=== PATIENT | male | born 1970 | race Caucasian/White ===

== ENCOUNTER 2020-08-23 17:20 | Outpatient (RCR) | payer OTHER, SELFPAY ==
[2020-08-05 12:33] VITALS: BMI 26.6
--- NOTE | 2020-08-24 07:29 | HP.PTEVAL_ITS ---
Patient's Visit Information LAURA STEPHENS is a 50 year old M referred to Physical Therapy by Dr. Eunice Ratliff DO with a diagnosis of LUMBAR RADICULOPATHY ,DDD LUMBAR. Date of Evaluation: 08/23/20 Physical Therapist: Emerson Miranda, PT, Cert MDT, OCS - Visit Plan Frequency: 1-2x /Week Duration: 4 Weeks Plan: PATIENT ANGEL HAS LEFT AVASCULAR NECROSIS LEFT HIP PLAN FOR MRI. PT INTERVETIONS DLS-ABD/BACK,POSTURAL EX'S,KAITLYN E'S,HIP STRENGTHENING - Subjective This 50 y/o male presents physical therapy with with lumbar radicular symptoms. Patient has h/o lumbar pain for many years which has been intermittant. Location of symmtrical L-S and occassionally radiates to lateral hip. Patient seen DR harper also avascular necrosis from reviewing x-rays. Recommended PT for lumbar evalutaion. Aggraveting factors lifting,bending repetative. Patienr symptoms dull ache. Symptoms worse with work demnads. Patient santana on side. Alleviating heat ,rest. When hip pain was worse had intermttant thigh pain.Bowel/bladder -. Coughing/sneezing-. Denies parathesia/tingling. Patient able to sleep at night. Patient does report h/o skiing accident injuring hip. Patient pain affects back affects job demnads and housework tasks,. Patient sy mptoms affects QOL. No tx in hip or back. VOCATION: [facility] - Pain Bilateral Back Pain Intensity (Out of 10): 2 Pain Intensity Range: 10 Left Hip Pain Intensity (Out of 10): 5 Pain Intensity Range: 10 Comment: lateral hip - Objective POSTURE: mild foward posture. GAIT: reciprocal pattern mild decrease standce time LLE. SYMMTRIES: align. PALAPTION: unremrkable. NEURO: denies parathesia/tingling,reflexes 2/3 intact. LUMBAR ROM: flexion min loss ,extension WFL,side glides min loss. FLEXABLITY: hams min tight,piriforms mod tight left. AROM: hip flexion 110 degrees groin,IR 20 pain groin /hip. MMT: quads/hams 4/5 hip R 4/5,left 4-/5 ,hip abd left 4-/5 right 4/5,IR/ER hip pain in groin region - Special Tests L/S Slump test left side: Negative L/S Slump test right side: Negative L/S Left Straight Leg Raise: Negative L/S Right Straight Leg Raise: Negative L/S Left Femoral Nerve Tension: Negative L/S Right Femoral Nerve Tension: Negative Lumbar Standing: Flexion - Mechanical Response: No effect Lumbar Standing: Flexion - Symptoms During Testing: Increases Lumbar Standing: Flexion - Symptoms After Testing: No worse Lumbar Standing: Extension - Mechanical Response: No effect Lumbar Standing: Extension - Symptoms During Testing: Increases Lumbar Standing: Extension - Symptoms After Testing: No worse L Hip Scour: Positive L Hip KINGA - Intraarticular Pathology: Positive - Goals Goal 1:: Patient to be I with HEP. Goal Time Frame: 2-4 Weeks Goal 2:: Patient decrease lumbvar pain and radicular symptoms by 60% or > to improve function Goal Time Frame: 2-4 Weeks Goal 3:: Pateint to improve lumbar ROM for function of vrecovery Goal Time Frame: 4-6 Weeks Goal 4:: Patient increase stength left hip 4/5 to improve function Goal Time Frame: 2-4 Weeks Goal 5:: Patient to improve back owestry score by 5 points or > to impirove QOL - Rehabilitation Potential Physical Therapy Diagnosis: This patiient has symmrical lumbar pain with dysfunction as well as left hip avasular necrosisshowed from x-rays but plane to get a MRI to clarfy the sinificance with pain in limbar with postion and motion lesting .Patient patient also have pain in left hip with motion ER/IR ,MMT LEFT hip. Rehabilitation Potential: Good - Anticipated Interventions Patient/Client Instruction: Educate patient on: Condition, Plan of Care For the Purpose of:: To decrease pain, To increase ROM, To improve muscle performance and motor function, To improve ability to perform ADL's, To increase tolerance to activity/condition/position, To improve ability of physical actions for home/community/work/leisure, To improve health of tissue, To decrease soft tissue restriction, To increase flexibility/ROM, To reduce risk of recurrence, To improve ability to perform tasks related to life management Therapeutic Exercise to Include: Strength training, Postural training, Flexibilty training, Active ROM, Dynamic Lumbar Stabilization, Kaitlyn Exercises For the Purpose of:: To decrease pain, To improve muscle performance and motor function, To improve ability to perform ADL's, To increase tolerance to activity/condition/position, To improve ability of physical actions for home/community/work/leisure, To improve health of tissue, To decrease soft tissue restriction, To increase flexibility/ROM, To reduce risk of recurrence, To improve ability to perform tasks related to life management Thank you for the opportunity to evaluate your patient. For Medicare and Medicare HMO plans, please review the plan of care and approve it. It will need to be FAXED BACK to us at [phone] for Medicare purposes. For Medicare only, by signing this I certify the plan of care. Please let me know if there are questions or concerns regarding this plan of care. Physician Signature: Date:
--- NOTE | 2020-09-22 08:27 | HP.PT.NRP ---
LAURA STEPHENS was seen in my office for initial evaluation on 08/23/20. The following Plan of Care was established for this patient: Initial Frequency: 1-2x /Week Initial Duration: 4 Weeks Patient/Client Instruction: Educate patient on: Condition, Plan of Care For the Purpose of:: To decrease pain, To increase ROM, To improve muscle performance and motor function, To improve ability to perform ADL's, To increase tolerance to activity/condition/position, To improve ability of physical actions for home/community/work/leisure, To improve health of tissue, To decrease soft tissue restriction, To increase flexibility/ROM, To reduce risk of recurrence, To improve ability to perform tasks related to life management Therapeutic Exercise to Include: Strength training, Postural training, Flexibilty training, Active ROM, Dynamic Lumbar Stabilization, Paola Exercises For the Purpose of:: To decrease pain, To improve muscle performance and motor function, To improve ability to perform ADL's, To increase tolerance to activity/condition/position, To improve ability of physical actions for home/community/work/leisure, To improve health of tissue, To decrease soft tissue restriction, To increase flexibility/ROM, To reduce risk of recurrence, To improve ability to perform tasks related to life management This patient was last seen in our office . Pertinent comments regarding their Physical therapy will appear below: Patient seen for PT initial evalution for HEP ,had MRI thus is d/c At this point I will be discontinuing this patient from physical therapy. I would be happy to see this patient again in the future if found appropriate by the physician. Thank you! Emerson Miranda, PT, Cert MDT, OCS
== END 2020-08-23 19:00 | disposition home or self-care (01) ==
LOC: PT 17:20
PROVIDERS: PCP Internal Medicine; Referring Provider Orthopaedic Surgery; Visit Provider Orthopaedic Surgery
DX: M51.16 Intervertebral disc disorders with radiculopathy, lumbar region (principal)
CPT/HCPCS: 97110; 97162

== ENCOUNTER → 2020-09-03 17:46 | Outpatient (CLI) | payer OTHER, SELFPAY ==
[2020-08-05 12:33] VITALS: BMI 26.6
--- NOTE | 2020-09-03 17:48 | MRI_ITS ---
STUDY: MRI LEFT HIP REASON FOR EXAM: Male, 50 years old. INTERMITTENT L HIP PAIN X 3 YRS TECHNIQUE: Standardized fat and water weighted pulse sequences were obtained in all 3 orthogonal planes. COMPARISON: X-ray 08/05/2020. FINDINGS: Serpiginous linear signal hypointensity in the left femoral head consistent with osteonecrosis. Necrotic fragment is hyperintense on T1 and mildly hyperintense on T2-weighted imaging. Mild edema in the lateral acetabulum likely represents early degenerative change. Reactive marrow edema in the greater trochanter consistent with tendinosis and tear. Marrow signal is otherwise normal. No hip joint effusion. Trace edema surrounding the distal gluteus minimus tendon consistent with low-grade strain. Partial tear involving the anterior fibers of the gluteus medius tendon. There is no trochanteric, iliopsoas or iliopectineal bursitis. Right hip joint is unremarkable. Normal visualized soft tissue structures of the pelvis. MRI/Lower Ext Joint Only (Routine) IMPRESSION: 1. Osteonecrosis of the left femoral head. 2. Partial gluteus medius tendon tear. 3. Gluteus minimus strain. Electronically Signed: Yen Baugh MD at 18:32 EST Tel , Service support ,
--- NOTE | 2020-09-03 18:07 | RAD_ITS ---
STUDY: X-RAY - ORBITS REASON FOR EXAM: Male, 50 years old. History of metal to eyes. TECHNIQUE: 2 view(s) of the orbits were obtained. COMPARISON: None. FINDINGS: Normal bilateral orbits without a metallic orbital foreign body. Normal visualized facial bones. Normal paranasal sinuses. The soft tissue structures are unremarkable. RAD/Orbits for Foreign Body IMPRESSION: No demonstrated metallic orbital foreign body. The patient is cleared for an MRI examination. Electronically Signed: Luarence Yee MD at 18:28 EST Tel , Service support ,
== END ==
LOC: MRI 17:48
PROVIDERS: PCP Internal Medicine; Referring Provider Orthopaedic Surgery; Visit Provider Orthopaedic Surgery
DX: M87.052 Idiopathic aseptic necrosis of left femur (principal)
CPT/HCPCS: 70030; 73721

== ENCOUNTER 2022-11-08 07:36 | Observation (INO) | payer OTHER, SELFPAY ==
[2022-11-08] VITALS (16 sets, daily range): BP systolic 120–148; BP diastolic 80–95; PULSE 70–92; RESP 15–20; TEMP 35.7–36.7; O2SAT 94–97; BMI 28.5; BMI 26.8
--- NOTE | 2022-11-08 07:38 | RAD_ITS ---
STUDY: X-RAY CHEST REASON FOR EXAM: Male, 52 years old. Chest pain TECHNIQUE: Single AP portable view of the chest. COMPARISON: None. FINDINGS: EKG electrodes are seen. Hyperinflation. The lungs are clear. There is no demonstrated pleural abnormality. Normal size heart. Normal mediastinum and brandy. Normal visualized pulmonary arteries. Normal visualized aortic arch and descending thoracic aorta. Normal visualized thoracic spine. 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 There is no demonstrated abnormality of the visualized soft tissue structures of the upper abdomen. RAD/Chest 1 View (Portable) IMPRESSION: Hyperinflation. The lungs are clear. 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 Electronically Signed: Ryan Chu MD at 8:22 EST ,
--- NOTE | 2022-11-08 07:44 | ED.VIS.CHEST ---
HPI History of Present Illness Chief Complaint: Chest Pain Informant: patient Onset/Context/Timing Onset: Today Activity at onset: gradual Quality: Positive for Heaviness and Pressure Location: Substernal Current Severity: Gone Maximum Severity: Moderate Associated Symptoms: Positive for Dyspnea and Lightheadedness Narrative Narrative: Patient presents via EMS secondary to chest pain and shortness of breath. He was out shoveling snow this morning he developed left-sided chest pain and shortness of breath. He felt as if he might pass out. He complains of some tingling in his left arm. 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 Between the aspirin and sitting to rest his pain has subsided. He currently denies any chest pain. He denies any personal history of heart disease. He states his father had coronary disease and of a pulmonary embolism. [facility] Medical History (Updated 11/08/22 @ 08:[address] Emelia Win MD) Second degree bansal Home Medications cyclobenzaprine 10 mg tablet 10 mg PO HS PRN muscle spasm #10 tabs 08/05/20 [Rx Last Taken Unknown] methylprednisolone 4 mg tablets in a dose pack (Medrol (Brain)) See Rx Instructions PO PER PKG DIR #21 tabs 08/05/20 [Rx Last Taken Unknown] Allergy/AdvReac Type Severity Reaction Status Date / Time No Known Allergies Allergy Verified 11/08/22 07:36 Family History Grandmother Breast cancer Father Prostate cancer Skin cancer Mother Hypertension High cholesterol Social History Smoking Status: Current every day smoker tobacco type: cigarettes alcohol intake: current alcohol intake frequency: 3 or more drinks per day Alcohol type: beer substance use type: does not use what type of physical activity do you participate in: none ROS ROS ED Constitutional Constitutional ED: Denies chills or fever(s) Eyes Eyes: Denies change in vision or discharge from eye(s) ENT ENT ED: Denies discharge from eye(s), rhinorrhea or sore throat Cardiovascular Cardiovascular: Reports chest pain; Denies palpitations Respiratory/Chest Respiratory/Chest: Reports dyspnea; Denies cough Gastrointestinal Gastrointestinal: Denies abdominal pain, diarrhea, nausea or vomiting Genitourinary Genitourinary ED: Denies dysuria Musculoskeletal Musculoskeletal: Denies back pain or extremity pain Integumentary Denies Abrasions or rash Neurologic Neurologic: Reports paresthesias; Denies headache(s) or weakness Psychiatric Psychiatric: Denies anxiety or depression Allergic/Immunologic Allergic/Immunologic ED: Denies lip swelling or urticaria EXAM Physical Exam Const Vital Signs: 11/08/22 07:37 11/08/22 07:50 Temperature 96.2 F L Temperature Source Temporal Pulse Rate 86 Respiratory Rate 15 Blood Pressure 148/94 H Blood Pressure Mean 112 Pulse Ox 96 Oxygen Delivery Method Room Air Room Air Positive well nourished and well developed General Appearance ED: well developed HEENT Reports normocephalic and head/scalp atraumatic Eyes PERRL and EOMs intact bilaterally Neck supple Chest Wall inspection of chest normal and palpation of chest normal Resp normal respiratory effort and clear to auscultation bilaterally Cardio regular rate and regular rhythm GI normal to inspection, nondistended, normoactive bowel sounds Palpation: soft Extremity normal to inspection Neuro oriented x3 and no sensory deficits noted Sensorium / Orientation: alert Motor Exam: strength 5/5 throughout Psych mental status grossly normal Skin no rashes or lesions noted Heart Score History: Highly Suspicious ECG: Nonspecific Repolarization Age: >45 - <65 years Risk Factors: 1 or 2 Risk Factors Troponin: </= Normal Limit Score: 5 MDM MDM MDM Narrative Medical decision making narrative: Patient had received aspirin prior to arrival. He was pain-free on arrival. EKG and chest x-ray obtained. Lab work ordered. Lab Data Attestation: I reviewed the patient's lab results. Labs: Laboratory Results - last 24 hr 11/08/22 11/08/22 07:40 07:40 WBC 10.5 RBC 4.99 Hgb 14.7 Hct 43.5 MCV 87.2 MCH 29.5 MCHC 33.8 RDW Std Deviation 45.6 H RDW Coeff of Tj 14.3 Plt Count 242 MPV 10.4 Immature Gran % (Auto) 0.300 Neut % (Auto) 43.8 L Lymph % (Auto) 41.7 H Mchenry % (Auto) 11.0 H Eos % (Auto) 2.4 Baso % (Auto) 0.8 Absolute Neuts (auto) 4.6 Absolute Lymphs (auto) 4.39 Nucleated RBC % 0 Sodium 138 Potassium 4.1 Chloride 106 Carbon Dioxide 24.0 Anion Gap 8 BUN 15 Creatinine 1.23 Estim Creat Clear Calc 78.86 Est GFR (MDRD) Af Amer 80 Est GFR (MDRD) Non-Af 66 BUN/Creatinine Ratio 12.2 Glucose 134 H Calcium 9.5 Troponin I High Sens 37 Radiography Chest X-Ray - ED: 1 View, Read by ED Physician, Normal, Heart, Lungs and Mediastinum EKG Initial EKG: Attestation: I personally reviewed and interpreted this EKG as follows: Interpretation: Sinus Rhythm (Sinus 83 with 1/[address] depression in V4 and V5.) Treatment and Re-Evaluation Narrative: Repeat evaluation patient resting comfortably. Patient's story is obviously concerning. Initial troponin is negative. Given his constitutional symptoms I do feel he warrants observation for cycling of enzymes and stress test. I will speak with hospitalist. Discharge Plan Triage Chief Complaint: Chest Pain ED Provider: Emelia Win Dx/Rx/DC Orders Clinical Impression: Chest pain Prescriptions: No Action methylprednisolone [Medrol (Brain)] 4 mg tablets,dose pack See Rx Instructions PO PER PKG DIR Qty: 21 0RF Rx Instructions: PO PER PKG DIR cyclobenzaprine 10 mg tablet 10 mg PO HS PRN (Reason: muscle spasm) Qty: 10 0RF Primary Care Provider: Lee Cuello Referrals: Lee Cuello MD [Primary Care Provider] - Disposition Disposition: Acute Care Hospital [facility]
[2022-11-08 07:52] LABS: Absolute Lymphocyte Count 4.39 X10^3/uL (0.83-4.51); Absolute Neutrophil Count 4.6 X10^3/uL (2.0-7.7); Basophil# 0.08 X10^3/uL; Basophil% 0.8 % (0-1); Eosinophil# 0.25 X10^3/uL; Eosinophils% 2.4 % (0-5); Hematocrit 43.5 % (40-54); Hemoglobin 14.7 g/dL (13.0-16.5); Lymphocyte # 4.39 X10^3/ul (0.83-4.51); Lymphocyte % 41.7 % (19-41); Mean Corp Hgb Conc 33.8 g/dL (32-36); Mean Corpuscular Hgb 29.5 pg (27.0-32.0); Mean Corpuscular Volume 87.2 fL (80-94); Mean Platelet Vol. 10.4 fl (6.2-12.0); Monocyte# 1.16 X10^3/uL; NRBC Flagged by Analyzer 0 % (0-5); Neutrophil # 4.61 X10^3/uL (2.7-7.7); Neutrophil % 43.8 % (47-70); Platelet Count 242 K/mm3 (150-450); RBC Distribution Width CV 14.3 % (11.6-14.6); RBC Distribution Width SD 45.6 fl (35.1-43.9); Red Blood Count 4.99 M/mm3 (4.6-6.2); White Blood Count 10.5 K/mm3 (4.4-11.0)
[2022-11-08 08:07] LABS: Anion Gap 8 (5-15); BUN 15 mg/dL (7-18); BUN/Creat Ratio 12.2 RATIO (10-20); Calcium,Total 9.5 mg/dL (8.5-10.1); Chloride 106 mmol/L (98-107); Creatinine, Serum 1.23 mg/dL (0.70-1.30); EST Glomerular Filtration Rate 66 mL/min (>60); Est Glom Filt Rate - Afr Amer 80 mL/min (>60); Estimated Creatinine Clearance 78.86 ml/min; Glucose 134 mg/dL (74-106); Potassium 4.1 mmol/L (3.5-5.1); Sodium Level 138 mmol/L (136-145); Troponin-I HS (w/2H Reflex) 37 pg/mL (3.0-78.0)
--- NOTE | 2022-11-08 08:32 | HP.PCM.HOS_ITS ---
HPI - General General Date of Admission: 11/08/22 Date of Service: 11/08/22 Chief Complaint: Chest pain HPI Narrative LAURA STEPHENS, is a 52 M who presented to the emergency department [facility] after he suffered chest pain while shoveling snow at about 630 this morning. 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 Patient has no personal coronary history but does have a history of tobacco and reported hypertension however he takes no medications. He has a family history of coronary disease in both his father and grandfather. They both apparently di ed in their 70s. He reports when he had the event he stopped shoveling snow and sat down and started to feel better. At the time of my evaluation he did not have any chest pain. Signs on presentation emergency department showed a temperature of 96.2, heart rate 86, blood pressure 148/94, respiratory rate 15 and oxygen saturation was 96% on room air. His CBC is unremarkable. D-dimer was less than 0.27. Chemistry panel was unremarkable other than a blood glucose of 134. His initial troponin was 37. Chest x-ray had no acute findings. His EKG showed normal sinus rhythm with normal intervals and about a half a millimeter of ST depression in the lateral leads. [facility] Medical History Alcohol abuse Hypertension Second degree bansal Tobacco abuse Home Medications NK 11/08/22 [History Last Taken Unknown] Allergy/AdvReac Type Severity Reaction Status Date / Time No Known Allergies Allergy Verified 11/08/22 07:36 Family History (Updated 11/08/22 @ 12:[address] Marianne Estevez DO) Grandmother Breast cancer Father Prostate cancer Skin cancer CAD (coronary artery disease) Mother Hypertension High cholesterol Grandfather CAD (coronary artery disease) Surgical History no surgical history no surgical history Social History Smoking Status: Current every day smoker tobacco type: cigarettes alcohol intake: current alcohol intake frequency: 3 or more drinks per day Alcohol type: beer substance use type: does not use what type of physical activity do you participate in: none ROS Constitutional Constitutional: Denies anorexia, change in weight, chills, fatigue, fever(s), malaise, night sweats, weakness or other Eyes Eyes: Denies blurry vision, change in eye color, change in vision, discharge from eye(s), double vision, erythema, eye pain, loss of vision or other ENT HEENT: Denies abnormal hearing, dysphagia, ear pain, epistaxis, headache(s), hearing loss, nasal congestion, nasal discharge, post nasal drip, sinus pressure, sore throat or other Cardiovascular Cardiovascular: Reports chest pain, dyspnea on exertion and lightheadedness; Denies claudication, edema, orthopnea, palpitations, paroxysmal nocturnal dyspnea, rapid heart rate, syncope or other Respiratory/Chest Respiratory/Chest: Denies cough, dyspnea, excessive phlegm production, hemoptysis, productive cough, shortness of breath at rest, shortness of breath with exertion, wheezing or other Gastrointestinal Gastrointestinal: Denies abdominal pain, coffee ground emesis, constipation, diarrhea, dyspepsia, hematemesis, hematochezia, loose stools, melena, nausea, vomiting or other Genitourinary Genitourinary: Denies burning urination, difficulty urinating, dysuria, hematuria, nocturia, urinary frequency, urinary hesitancy, urinary incontinence, urinary urgency or other Musculoskeletal Musculoskeletal: Reports other Details: Left arm pain in association with chest pain ; Denies arthralgias, back pain, joint pain, joint stiffness, joint swelling, myalgias or neck pain Psychiatric Psychiatric: Denies anxiety, depression, homicidal ideation, suicidal ideation or other Endocrine Endocrinology: Denies change in body appearance, cold intolerance, excessive sweating, heat intolerance, polydipsia, polyuria or other Hematologic/Lymphatic Hematologic/Lymphatic: Denies anemia, easy bleeding, easy bruising, lymphadenopathy or other Allergic/Immunologic Allergic/Immunologic: Denies rhinitis, hives, eczemia, asthma or other Vital Signs Vital Signs Vital Signs: 11/08/22 07:37 11/08/22 07:50 Temperature 96.2 F L Temperature Source Temporal Pulse Rate 86 Respiratory Rate 15 Blood Pressure 148/94 H Blood Pressure Mean 112 Pulse Ox 96 Oxygen Delivery Method Room Air Room Air Weight Weight: 95.3 kg Body Mass Index (BMI) 28.5 Physical Exam Const alert, oriented x3, no apparent distress, average body habitus and well nourished Constitutional Narrative: Slightly overweight, white male, sitting up in bed, appears comfortable, nontoxic General Appearance: cooperative HEENT normocephalic, head/scalp atraumatic and moist oral mucous membranes HEENT Narrative: Mild hearing loss, dentition is good, no thrush, Mallampati 2 Eyes PERRL, EOMs intact bilaterally and conjunctivae normal Eyes Narrative: No scleral icterus Neck no lymphadenopathy, supple, no JVD and no carotid bruits Neck Narrative: Trachea midline, no thyroid enlargement Resp normal respiratory effort, no retractions, no use of accessory muscles and clear to auscultation bilaterally Auscultation: Negative for crackles, rhonchi or wheezes Cardio regular rate, regular rhythm, S1 normal heart sound, S2 normal heart sound, no murmurs, no rub, no gallops and no clicks GI normal to inspection, nondistended, normoactive bowel sounds, soft to palpation and non-tender Extremity no clubbing, cyanosis or edema Extremity Narrative: 2+ pedal pulses Skin no rashes or lesions noted, no wounds, skin turgor normal, no jaundice, no petechiae and no mottling Neuro oriented x3, CN's II-XII intact bilaterally, moves all extremities and no focal motor deficits Speech: speech normal Motor Exam: strength 5/5 throughout Psych affect normal Psych Narrative: Pleasant, appropriately interactive Results Lab / Micro Data Result Diagrams: 11/08/22 07:40 11/08/22 07:40 Labs: Laboratory Results - last 24 hr 11/08/22 07:40: WBC 10.5, RBC 4.99, Hgb 14.7, Hct 43.5, MCV 87.2, MCH 29.5, MCHC 33.8, RDW Std Deviation 45.6 H, RDW Coeff of Tj 14.3, Plt Count 242, MPV 10.4, Immature Gran % (Auto) 0.300, Neut % (Auto) 43.8 L, Lymph % (Auto) 41.7 H, Trego % (Auto) 11.0 H, Eos % (Auto) 2.4, Baso % (Auto) 0.8, Absolute Neuts (auto) 4.6, Absolute Lymphs (auto) 4.39, Nucleated RBC % 0 11/08/22 07:40: Sodium 138, Potassium 4.1, Chloride 106, Carbon Dioxide 24.0, Anion Gap 8, BUN 15, Creatinine 1.23, Estim Creat Clear Calc 78.86, Est GFR (MDRD) Af Amer 80, Est GFR (MDRD) Non-Af 66, BUN/Creatinine Ratio 12.2, Glucose 134 H, Calcium 9.5, Troponin I High Sens 37 Radiology Impression Chest X-Ray 11/08/22 07:38 IMPRESSION: Hyperinflation. The lungs are clear. 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 Electronically Signed: Ryan Chu MD at 8:22 EST , Assessment & Plan Assessment/Plan (1) Chest pain: (2) Hyperglycemia: PLAN: Plan Chest pain -Story is highly suspicious for coronary pathology -Case discussed with cardiology as I do feel he would benefit from cath rather than any noninvasive testing and they agree -Patient has been n.p.o. except for coffee this morning will remain so -Cycle cardiac enzymes initial was 37 -Check hemoglobin A1c -Check lipid profile -D-dimer was unremarkable -EKG with subtle abnormalities -Start high intensity statin -start metoprolol 25 mg p.o. twice daily -Start aspirin 81 mg daily -May be able to initiate COLBY inhibitor depending on blood pressure -Cardiology consultation Hyperglycemia without history of diabetes -Blood sugar this morning was 134 -Check hemoglobin A1c Elevated blood pressure without diagnosis of hypertension -Continue to monitor -Start metoprolol 25 mg p.o. twice daily Alcohol abuse -Patient admits to drinking 6 to 8 12 ounce beers at night -Has never gone through withdrawal -Has stopped drinking for a period of time without any withdrawal symptoms -Monitor clinically Tobacco abuse -Recommend cessation -Nicotine patch if desired DVT prophylaxis -Subcu Lovenox CODE STATUS -Full code Charges/Coding Visit Charges Inpatient E&M: 31676 Init Hosp L2
--- NOTE | 2022-11-08 08:48 | ED.RN ---
THIS RN CALLED RADHIKA [facility] [employer]. 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
[2022-11-08 09:44] LABS: Reflex Troponin-HS? (from REC) Y
[2022-11-08 09:55] LABS: Hemoglobin A1c 5.9 % (3.8-5.6)
--- NOTE | 2022-11-08 10:56 | CASEMGMT ---
Tertiary facilities in-network with patient's insurance: [facility], [facility], , [facility], [facility], [facility], [facility], [facility].
[2022-11-08] MEDS: 0.9% Normal Saline 1,000 ML 15 ML IV (11:00)
[2022-11-08] MEDS: Metoprolol Tartrate 25 MG Tablet PO ×2 (11:06→20:50)
--- NOTE | 2022-11-08 11:27 | ECHOD_ITS ---
Reason For Study: CHEST PAIN Procedure This was a 2D Doppler, Color Flow transthoracic echocardiogram. The exam was of adequate technical quality. Exam performed portable in patient room. Left Ventricle Normal LV size. Left ventricular systolic function is normal. The estimated ejection fraction is 55 %. No evidence for diastolic dysfunction. No regional wall motion abnormalities noted. Right Ventricle Normal RV size. Normal systolic function. Atria Normal left atrium. Normal right atrium. No doppler evidence for ASD. Mitral Valve There is no mitral annular calcification. Normal mitral valve. Trivial mitral valve insufficiency. Tricuspid Valve Normal tricuspid valve. Trivial tricuspid valve insufficiency. Right ventricular systolic pressure estimated to be 25 mmHg. Aortic Valve Trisinus/trileaflet aortic valve. Normal aortic valve. Trivial aortic valve insufficiency. Pulmonic Valve The pulmonic valve is not well visualized. Great Vessels Normal sized aortic root. Pericardium/Pleural No pericardial effusion. MMode/2D Measurements & Calculations LVIDd: 4.7 cm IVSd: 0.89 cm Ao root diam: 3.1 cm LVIDs: 3.2 cm LVPWd: 0.89 cm RVDd: 3.6 cm FS: 31.2 % LAV(MOD-bp): 46.2 ml LVAd ap4: 33.6 cm2 SV(MOD-sp4): 61.1 ml LAV(MOD-bp) Indexed: 21.8 ml/m2 LVLd ap4: 8.5 cm LAV(MOD-sp2): 47.6 ml EDV(MOD-sp4): 108.9 ml LAV(MOD-sp4): 43.5 ml EDV(sp4-el): 113.2 ml LVAs ap4: 20.3 cm2 LVLs ap4: 7.2 cm ESV(MOD-sp4): 47.8 ml ESV(sp4-el): 48.3 ml EF(MOD-sp4): 56.1 % EF(sp4-el): 57.4 % SV(sp4-el): 64.9 ml LA A4 area: 16.7 cm2 LA dimension(2D): 3.0 cm RA A4 area: 15.3 cm2 Time Measurements MV dec time: 0.22 sec Doppler Measurements & Calculations MV E max navid: 78.5 cm/sec Lat Peak E' Navid: 10.1 cm/sec Med Peak E' Navid: 10.0 cm/sec MV A max navid: 79.9 cm/sec E/E' lat: 7.7 E/E' med: 7.8 MV E/A: 0.98 Ao V2 max: 116.0 cm/sec LV V1 max: 101.6 cm/sec PA V2 max: 68.2 cm/sec Ao max P.4 mmHg LV V1 max P.1 mmHg TR max navid: 233.0 cm/sec TR max P.7 mmHg ECHO/Echo Complete Interpretation Summary Left ventricular systolic function is normal. The estimated ejection fraction is 55 %. Trivial mitral valve insufficiency. Trivial tricuspid valve insufficiency. Trivial aortic valve insufficiency. Right ventricular systolic pressure estimated to be 25 mmHg. No evidence for diastolic dysfunction. Ordering Physician: Timmy Infante Referring Physician: DENYS PHAM Performed By: Fouzia Casillas RDCS
--- NOTE | 2022-11-08 11:28 | PCM.CONS.C ---
Assessment & Plan Assessment/Plan (1) Angina pectoris: PLAN: The patient presents with symptoms concerning for exertional angina pectoris. His symptoms occurred outside, in the cold, with exertion.? They then occurred again when he was walking outside in the cold with no additional physical exertion. His initial noninvasive valuation is unremarkable based upon cardiac enzyme.? However, his second troponin I level is positive.? His ECG is as noted. At the present time based upon his clinical scenario the concern is for underlying unstable angina pectoris requiring further cardiovascular evaluation with consideration for direct evaluation of coronary anatomy with diagnostic cardiac catheterization.? The procedure and risk were discussed with the patient with his spouse present.? He was agreeable to this approach. In the interim he will continue to be monitored. He will continue medical therapy.? This will include agents such as aspirin 81 mg p.o. daily, nitroglycerin sublingual as needed, as well as consideration for other agents such as beta-blockers, afterload reducing agents, lipid-lowering agents, and antiplatelet/anticoagulants. (2) Non-ST elevation (NSTEMI) myocardial infarction: PLAN: The patient's second troponin I level returned positive. This would be compatible with a non-ST segment elevation DE. Based upon the patient's presentation this would be concerning for an acute coronary syndrome. At the present time the patient will continue to be monitored. He will continue medical therapy. He has been placed on aspirin therapy. He will receive additional agents as noted above as deemed appropriate. He has been recommended for further evaluation with diagnostic cardiac catheterization. Again the procedure and risk were discussed with him. He was agreeable to this approach. (3) HTN (hypertension): PLAN: The patient has been noted to be hypertensive. It is unclear as to whether or not this is secondary to his symptoms versus a contributing factor to his symptoms. Based upon review of medical records it appears he has been documented to be hypertensive in the past as well. At the present time he will need to have his blood pressure monitored. He should be considered for antihypertensive therapy which could include agents such as COLBY inhibitor's or ARB's, etc. (4) Hyperglycemia: PLAN: The patient's medical record states he has a history of hyperglycemia. If the patient does have hyperglycemia this could be a contributing factor to a cardiovascular risk profile. His glucose levels will need to be evaluated and treated appropriately. Addt'l Comments The above was discussed with the patient, his spouse, and Dr. Estevez of the [facility] staff. Comment: Time spent in the patient's overall evaluation, examination, review of medical records, review of radiologic studies, documentation, and discussion with family and the [facility] medical staff: 60 minutes. HPI Consult Data Date of Consult: 11/08/22 HPI Narrative HPI Narrative: LAURA STEPHENS, is a 52 year old white male who presents for cardiovascular consultation based upon concerns of symptoms concerning for exertional angina pectoris, subsequent abnormal troponin I level concerning for an acute coronary syndrome/non-ST segment elevation DE, and hypertension superimposed upon a report of hyperglycemia. The patient states to the best of his knowledge she has no known cardiovascular disease process. He notes today while outside in the cold shoveling snow he developed chest discomfort that radiated to his left shoulder and down his left upper extremity. He did feel somewhat short of breath and transiently nauseated. He is unsure whether he was diaphoretic as he was shoveling snow and already perspiring. He did not complain of palpitations. There was no report of near syncope or syncope. He states he stopped, rested, and went to the employment nurse. As he rested his symptoms improved. The EMS was called. He states he walked outside to the EMS. When he was outside in the cold he states that his symptoms started to recur with some element of chest discomfort. By the time he arrived in the emergency department he felt better. He states looking back that he believes he may have had similar type symptoms in the past under stressful situations but he is somewhat unclear of the details. There is been no obvious orthopnea, PND, or peripheral pitting edema. In the emergency department he was evaluated. His initial troponin I level was negative. His subsequent troponin I level is positive. His ECG demonstrated sinus rhythm with subtle nonspecific ST segment abnormality. The chest x-ray suggested, upon review, no acute cardiopulmonary disease process. He was subsequently placed in the PCU for further evaluation and care. He has been resting comfortably. He is remained in sinus rhythm. [facility] Medical History (Updated 11/08/22 @ 11:[address] Timmy Infante MD) Alcohol abuse Hypertension Second degree bansal Tobacco abuse Home Medications NK 11/08/22 [History Last Taken Unknown] Allergy/AdvReac Type Severity Reaction Status Date / Time No Known Allergies Allergy Verified 11/08/22 07:36 Family History Grandmother Breast cancer Father Prostate cancer Skin cancer Mother Hypertension High cholesterol Social History Smoking Status: Current every day smoker tobacco type: cigarettes alcohol intake: current alcohol intake frequency: 3 or more drinks per day Alcohol type: beer substance use type: does not use what type of physical activity do you participate in: none ROS Constitutional Constitutional: Reports as per HPI Eyes Eyes: Reports as per HPI ENT HEENT: Reports as per HPI Cardiovascular Cardiovascular: Reports chest pain with activity, diaphoresis, dyspnea on exertion and nausea Respiratory/Chest Respiratory/Chest: Reports dyspnea on exertion Gastrointestinal Gastrointestinal: Reports as per HPI Genitourinary Genitourinary: Reports as per HPI Musculoskeletal Musculoskeletal: Reports as per HPI Integumentary Integumentary: Reports as per HPI Neurologic Neurologic: Reports as per HPI Physical Exam Const alert, oriented x3, no apparent distress and healthy appearing Orientation / Consciousness: awake HEENT normocephalic, head/scalp atraumatic and hearing grossly normal bilaterally Eyes PERRL, EOMs intact bilaterally and conjunctivae normal Neck full ROM, supple and no JVD Carotids: normal carotid upstroke Resp normal respiratory effort and clear to auscultation bilaterally Cardio regular rate, regular rhythm, S1 normal heart sound and S2 normal heart sound GI normal to inspection, nondistended, normoactive bowel sounds Extremity normal to inspection and no pedal edema Skin no rashes or lesions noted Psych mental status grossly normal Risk Stratification Risk Stratification Applicable: Yes Age >/= 65: No >/= 3 CAD Risk Factors (HTN, HLD, DM, family hx of CAD, or current smoker): No Aspirin Use in the Past 7 Days: No Severe Angina (>/= episodes in 24 hours): Yes EKG ST Changes >/= 0.5mm: No Positive Cardiac Marker: Yes OLIS Risk Stratification Score: 2 LOIS % Risk: 8% Risk Procedure Criteria Type of Procedure Procedure Type: Elective Elective Risks - COVID COVID Risk Discussion: The surgeon/proceduralist and patient have discussed in detail the risk of exposure to and/or potential harm posed by the COVID-19 virus with having a surgery/procedure at this time versus the risk of delaying the surgery/procedure. It is not possible to know either the risk of delaying the surgery or procedure or chance of getting an infection with perfect accuracy, but a joint decision was made between the patient and the surgeon/proceduralist to proceed at this time with the scheduled surgery/procedure as indicated on the consent form. Objective Data Vital Signs: Vital Signs Temp Pulse Resp BP Pulse Ox O2 Del Method 96.2 F L 88 16 135/95 H 95 Room Air 11/08/22 10:15 11/08/22 11:06 11/08/22 10:15 11/08/22 10:15 11/08/22 10:15 11/08/22 10:15 Oxygen Delivery Method Room Air Weight: 197 lb 8.547 oz Body Mass Index (BMI) 26.8 Lab / Micro Data Result Diagrams: 11/08/22 07:40 11/08/22 07:40 Labs: Laboratory Results - last 24 hr 11/08/22 07:40: WBC 10.5, RBC 4.99, Hgb 14.7, Hct 43.5, MCV 87.2, MCH 29.5, MCHC 33.8, RDW Std Deviation 45.6 H, RDW Coeff of Tj 14.3, Plt Count 242, MPV 10.4, Immature Gran % (Auto) 0.300, Neut % (Auto) 43.8 L, Lymph % (Auto) 41.7 H, [place] % (Auto) 11.0 H, Eos % (Auto) 2.4, Baso % (Auto) 0.8, Absolute Neuts (auto) 4.6, Absolute Lymphs (auto) 4.39, Nucleated RBC % 0 11/08/22 07:40: Sodium 138, Potassium 4.1, Chloride 106, Carbon Dioxide 24.0, Anion Gap 8, BUN 15, Creatinine 1.23, Estim Creat Clear Calc 78.86, Est GFR (MDRD) Af Amer 80, Est GFR (MDRD) Non-Af 66, BUN/Creatinine Ratio 12.2, Glucose 134 H, Calcium 9.5, Troponin I High Sens 37 11/08/22 07:40: D-Dimer Quant (PE/DVT) Cancelled 11/08/22 07:40: Hemoglobin A1c 5.9 H Cardiology Labs/Tests 11/08/22 07:40: WBC 10.5, RBC 4.99, Hgb 14.7, Hct 43.5, MCV 87.2, MCH 29.5, MCHC 33.8, Plt Count 242, MPV 10.4, Immature Gran % (Auto) 0.300, Neut % (Auto) 43.8 L, Lymph % (Auto) 41.7 H, [place] % (Auto) 11.0 H, Eos % (Auto) 2.4, Baso % (Auto) 0.8, Absolute Neuts (auto) 4.6, Nucleated RBC % 0 11/08/22 07:40: Sodium 138, Potassium 4.1, Chloride 106, Carbon Dioxide 24.0, Anion Gap 8, BUN 15, Creatinine 1.23, Est GFR (MDRD) Af Amer 80, Est GFR (MDRD) Non-Af 66, BUN/Creatinine Ratio 12.2, Glucose 134 H, Calcium 9.5 11/08/22 07:40: D-Dimer Quant (PE/DVT) Cancelled 11/08/22 07:40: Hemoglobin A1c 5.9 H Rhythm: Sinus rhythm EKG: Sinus rhythm; subtle nonspecific ST segment abnormality Radiography Diagnostic Testing: Radiology Impression Chest X-Ray 11/08/22 07:38 IMPRESSION: Hyperinflation. The lungs are clear. 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 Electronically Signed: Ryan hCu MD at 8:22 EST ,
[2022-11-08 11:30] LABS: D-Dimer Quantitative (DVT/PE) < 0.27 FEU/ug/m (0.27-0.49)
[2022-11-08 11:38] LABS: Troponin-I HS 104 pg/mL (3.0-78.0)
[2022-11-08] MEDS: Lactated Ringers 1,000 ML 70 ML IV (12:51)
[2022-11-08] MEDS: 0.9% Normal Saline 1,000 ML 75 ML IV (12:59)
--- NOTE | 2022-11-08 15:51 | NURSING ---
Gave report to Ni BEAULIEU at [facility]. Transfer center to be called for official bed assignment information.
[2022-11-08] MEDS: HEPARIN/D5w 25,000 UNITS 25,000 UNITS/250 ML IV.SOLN. 12 UNITS CONT INF (16:12)
[2022-11-08 16:34] LABS: International Normalized Ratio 1.1; Prothrombin Time (Protime)PT. 13.6 SECONDS (11.7-14.9)
--- NOTE | 2022-11-08 17:30 | DS.PCM_ITS ---
Providers Date of Admission: 11/08/22 Date of Discharge: 11/08/22 Primary Care Physician: Dr. Denys Pham MD Consultations 11/08/22 10:06 Consult: Cardiology Routine Consulting Provider: Timmy Infante Reason for Consult: Chest Pain EMERGENT Consult: No MD Notified: Yes Date Notified: 11/08/22 Time Notified: 08:57 Method of Notification: Verbal Reason For Visit: CHEST PAIN Diagnosis Discharge Diagnosis (1) Chest pain: Status: Acute Code(s): R07.9 - Chest pain, unspecified (2) Hyperglycemia: Status: Acute Code(s): R73.9 - Hyperglycemia, unspecified Plan Chest pain -Story is highly suspicious for coronary pathology -Case discussed with cardiology as I do feel he would benefit from cath rather than any noninvasive testing and they agree -Patient has been n.p.o. except for coffee this morning will remain so -Cycle cardiac enzymes initial was 37 -Check hemoglobin A1c -Check lipid profile -D-dimer was unremarkable -EKG with subtle abnormalities -Start high intensity statin -start metoprolol 25 mg p.o. twice daily -Start aspirin 81 mg daily -May be able to initiate COLBY inhibitor depending on blood pressure -Cardiology consultation Hyperglycemia without history of diabetes -Blood sugar this morning was 134 -Check hemoglobin A1c Elevated blood pressure without diagnosis of hypertension -Continue to monitor -Start metoprolol 25 mg p.o. twice daily Alcohol abuse -Patient admits to drinking 6 to 8 12 ounce beers at night -Has never gone through withdrawal -Has stopped drinking for a period of time without any withdrawal symptoms -Monitor clinically Tobacco abuse -Recommend cessation -Nicotine patch if desired DVT prophylaxis -Subcu Lovenox CODE STATUS -Full code Medications at Discharge Home Medications NK 11/08/22 Hospital Course Procedures 2-D Echocardiogram, Cardiac catheterization and EKG Summary of Care Provided Minutes Spent on Discharge: 25 Hospital Course: Mr. Bauman is a 52-year-old white male who presented to the emergency department at [facility] after suffering chest pain while shoveling snow at approximately 630 this morning. 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 He has no personal history of coronary disease but does have a history of tobacco abuse and reported hypertension however he takes no medications. He has a family history of coronary disease in both his father and grandfather and they evidently in their 70s. He reported that when he had the event he stopped shoveling snow and sat down and started to feel somewhat better however his chest pain did not completely resolve until he got to the emergency department. At the time of my evaluation his chest pain had resolved. Vital signs on presentation emergency department demonstrated temperature of 96.2, heart rate 86, blood pressure 148/8094, respiratory rate of 15, oxygen saturation was 96% on room air. His CBC was unremarkable. D-dimer was less than 0.27. Chemistry panel was unremarkable other than a blood glucose of 134. His initial troponin was 37. Chest x-ray had no acute findings and his EKG showed normal sinus rhythm with normal intervals and about a half a millimeter of ST depression in the lateral leads. Given his concerning story I contacted the network support manager and we both felt that immediate catheterization was necessary. Patient was admitted to floor and his cardiac enzymes were cycled. Again his initial troponin was 37 however his repeat troponin was 104. He was started on aspirin, high intensity of statin, and beta-braydon. We did obtain a hemoglobin A1c and was found to be 5.9. The patient does not have a history of any insulin resistance or diabetes. He was taken to the [facility]. In the [facility] he was found to have severe left main disease and would require transfer. An echocardiogram was obtained while waiting for transfer and his EF was found to be 55% with trivial mitral valve insufficiency, trivial tricuspid valve insufficiency, trivial aortic valve insufficiency and a right ventricular systolic pressure of [address] Infante did discuss the case with CT surgery at [facility] and he was transferred to [facility] to Dr. Wu service on 11/08/2019 3 in the evening. Discharge diagnoses: NSTEMI Severe left main disease Insulin resistance Elevated blood pressure without history of hypertension Tobacco abuse Alcohol abuse Weight / BMI Weight Weight: 89.6 kg Body Mass Index (BMI) 26.8 ABG / Lab / Microbiology Data Result Diagrams: 11/08/22 07:40 11/08/22 07:40 Laboratory: Laboratory Results - last 24 hr 11/08/22 07:40: WBC 10.5, RBC 4.99, Hgb 14.7, Hct 43.5, MCV 87.2, MCH 29.5, MCHC 33.8, RDW Std Deviation 45.6 H, RDW Coeff of Tj 14.3, Plt Count 242, MPV 10.4, Immature Gran % (Auto) 0.300, Neut % (Auto) 43.8 L, Lymph % (Auto) 41.7 H, Stewart % (Auto) 11.0 H, Eos % (Auto) 2.4, Baso % (Auto) 0.8, Absolute Neuts (auto) 4.6, Absolute Lymphs (auto) 4.39, Nucleated RBC % 0 11/08/22 07:40: Sodium 138, Potassium 4.1, Chloride 106, Carbon Dioxide 24.0, Anion Gap 8, BUN 15, Creatinine 1.23, Estim Creat Clear Calc 78.86, Est GFR (MDRD) Af Amer 80, Est GFR (MDRD) Non-Af 66, BUN/Creatinine Ratio 12.2, Glucose 134 H, Calcium 9.5, Troponin I High Sens 37 11/08/22 07:40: D-Dimer Quant (PE/DVT) Cancelled 11/08/22 07:40: Hemoglobin A1c 5.9 H 11/08/22 09:19: D-Dimer Quant (PE/DVT) < 0.27 L 11/08/22 10:45: Troponin I High Sens 104 H 11/08/22 16:00: PT 13.6, INR 1.1, APTT 29.0 Radiography Diagnostic Testing: Radiology Impression Chest X-Ray 11/08/22 07:38 IMPRESSION: Hyperinflation. The lungs are clear. 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 Electronically Signed: Ryan Chu MD at 8:22 EST , Echocardiogram 11/08/22 11:27 Interpretation Summary Left ventricular systolic function is normal. The estimated ejection fraction is 55 %. Trivial mitral valve insufficiency. Trivial tricuspid valve insufficiency. Trivial aortic valve insufficiency. Right ventricular systolic pressure estimated to be 25 mmHg. No evidence for diastolic dysfunction. Ordering Physician: Timmy Infante Referring Physician: DENYS PHAM Performed By: Fouzia Casillas RDCS Meaningful Use Info Meaningful Use Diagnoses (Choose all that apply): None applicable Discharge Plan Admission Admit Date/Time: 11/08/22 08:27 Primary Reason for Your Visit: Chest pain Attending Provider: Marianne Estevez Primary Care Provider: Denys Pham Consulting Providers: Timmy Infante Discharge Orders/Prescriptions Prescriptions: No Action NK Referrals / Follow Up: Denys Pham MD [Primary Care Provider] - Disposition Discharge Orders: Discharge Patient (Routine); Ordered 11/08/22 Ordered By: Dr. Timmy Infante Charges/Coding Visit Charges OBSV E&M: 65648 Observ/hosp same date L3
[2022-11-08] MEDS: Atorvastatin Calcium 80 MG Tablet PO (20:50)
--- NOTE | 2022-11-09 13:49 | CL.D_ITS ---
Patient Name: LAURA STEPHENS Study Date: 11/08/2022 Performing: Timmy Infante MD Ht: 72 inches 182.88 cm : 1970 Wt: 200.2 lbs 90.71 kg Age: 52 Gender: male BSA: 2.13 PROCEDURE(S) PERFORMED DC01-(32525)LHC/COR/LV CLINICAL PROFILE AND INDICATIONS Indications: ACS <= 24 hrs, Suspected CAD Heart Failure: None Stress/Imaging Stress/Image Study Performed: No Angina Classification Anginal Classification w/in 2 Weeks: CCS II CAD Presentations: Non-STEMI. CONCLUSIONS Elevated Left Ventricular End Diastolic Pressure (mild) Normal LV size, wall motion,and systolic function LVEF: by LV gram 60 % [place] Multivessel CAD RECOMMENDATIONS Risk factor modification Medical therapy Surgery consult for coronary revascularization DESCRIPTION OF PROCEDURE The patient arrived to the procedure lab. The risks and benefits of the procedure as well as a full description of our services here and current unavailability of surgical backup were fully explained to the patient and/or their significant other prior to the catheterization. The Timeout was completed, verifying the correct patient and procedure. The patient's procedural site was prepped and draped in the usual fashion. Local anesthetic was given subcutaneously to right radial region with Lidocaine 2%. Using a modified Seldinger technique, arterial access was obtained via the right radial artery, a 6Fr sheath was inserted. Left Coronary Artery selective angiography was performed in multiple views using a 5 Fr. 4.0 Flynn catheter. Right Coronary Artery selective angiography was then performed in multiple views using a 5 Fr. 4.0 Flynn catheter. Left Ventriculography was performed in MOORE projection using a 5 Fr. Pigtail catheter. LV to AO pullback pressures were then recorded.The arterial sheath was pulled and a TR Band was applied for hemostasis. 10cc Air inserted. CORONARY ANGIOGRAPHY DOMINANCE: Right Dominant LEFT HEART ASSESSMENT Left Ventricular Ejection Fraction: by LV Gram 60 % Normal LV wall motion Elevated Left Ventricular End Diastolic Pressure LVEDP: 14 mmHg LEFT MAIN: distal: 90 % Stenosis LEFT ANTERIOR DESCENDING ARTERY: MID LAD: 50 % Stenosis CIRCUMFLEX ARTERY: MID CIRC: 25 % Stenosis RIGHT CORONARY ARTERY: Mild luminal irregularities AORTIC ROOT: Angiographically normal COMPLICATIONS No Complications PROCEDURE MEDICATIONS Fentanyl 50 mcg IV Versed 1 mg IV Fentanyl 50 mcg IV Versed 1 mg IV Oxygen: 2 L/min via nasal cannula Heparin given IA 11/08/2022 12:15:42 Verapamil 2.5mg, Ntg 100mcgs, 3000 units of Heparin given IA 11/08/2022 12:15:42 SUMMARY OF HEMODYNAMIC DATA Time AIR REST ECG 11:59:00 AO 109/70 (88) SA 12:17:37 LV 119/0, 11 12:25:02 LV 117/1, 14 12:25:11 LV 102/3, 13 12:26:19 LV 116/2, 16 12:26:39 LVp 125/-1, 15 12:26:44 AOp 121/70 (94) 12:26:51 Signed By Timmy Infante MD On 11/08/2022 13:03:42 Timmy Infante MD
== END 2022-11-08 21:22 | disposition short-term general hospital (02) ==
LOC: ED 08:23 → PCU 08:52
PROVIDERS: Internal Medicine Cardiovascular Disease; Admitting Provider Internal Medicine; Emergency Provider Emergency Medicine; PCP Internal Medicine; Visit Provider Internal Medicine
DX: I21.4 Non-ST elevation (NSTEMI) myocardial infarction (principal); R73.9 Hyperglycemia, unspecified; R03.0 Elevated blood-pressure reading, without diagnosis of hypertension; F10.10 Alcohol abuse, uncomplicated; R06.02 Shortness of breath; Z79.899 Other long term (current) drug therapy; F17.210 Nicotine dependence, cigarettes, uncomplicated
CPT/HCPCS: 36415; 71045; 80048; 83036; 84484; 85025; 85379; 85610; 85730; 93005; 93306; 93458; 96361; 96365; 96366; 97802; 99152; 99153; 99221; 99252; 99285; J7030; J7040; J7120; Q9967; A4216; C1769; C1894; G0378; G0463

== ENCOUNTER → 2022-12-06 | Outpatient (CLI) | payer OTHER, SELFPAY ==
[2022-12-06 15:08] LABS: Absolute Lymphocyte Count 2.58 X10^3/uL (0.83-4.51); Absolute Neutrophil Count 4.7 X10^3/uL (2.0-7.7); Basophil# 0.09 X10^3/uL; Basophil% 1.1 % (0-1); Eosinophil# 0.37 X10^3/uL; Eosinophils% 4.4 % (0-5); Hematocrit 35.2 % (40-54); Hemoglobin 11.1 g/dL (13.0-16.5); Lymphocyte # 2.58 X10^3/ul (0.83-4.51); Lymphocyte % 30.5 % (19-41); Mean Corp Hgb Conc 31.5 g/dL (32-36); Mean Corpuscular Hgb 28.5 pg (27.0-32.0); Mean Corpuscular Volume 90.5 fL (80-94); Mean Platelet Vol. 9.7 fl (6.2-12.0); Monocyte# 0.74 X10^3/uL; Monocyte% 8.8 % (0-10); NRBC Flagged by Analyzer 0 % (0-5); Neutrophil # 4.65 X10^3/uL (2.7-7.7); Platelet Count 394 K/mm3 (150-450); RBC Distribution Width CV 13.8 % (11.6-14.6); RBC Distribution Width SD 45.8 fl (35.1-43.9); Red Blood Count 3.89 M/mm3 (4.6-6.2); White Blood Count 8.5 K/mm3 (4.4-11.0)
[2022-12-06 15:50] LABS: ALB/GLOB Ratio 0.9 RATIO (0.9-2.4); AST(SGOT) 20 U/L (15-37); Alanine Aminotransfer ALT/SGPT 35 U/L (16-61); Albumin, Serum 3.6 g/dL (3.2-5.0); Alkaline Phosphatase 138 U/L (45-117); Anion Gap 8 (5-15); BUN 12 mg/dL (7-18); BUN/Creat Ratio 10.2 RATIO (10-20); Calcium,Total 9.5 mg/dL (8.5-10.1); Chloride 108 mmol/L (98-107); Cholesterol 117 mg/dL (200); Creatinine, Serum 1.18 mg/dL (0.70-1.30); EST Glomerular Filtration Rate 69 mL/min (>60); Est Glom Filt Rate - Afr Amer 84 mL/min (>60); Glucose 116 mg/dL (74-106); High Density Lipoprotein 43 mg/dL; Potassium 4.5 mmol/L (3.5-5.1); Protein, Total 7.6 g/dL (6.4-8.2); Sodium Level 141 mmol/L (136-145); Triglycerides 100 mg/dL; Very Low Density Lipoprotein 20 mg/dL (5-40)
== END | disposition home or self-care (01) ==
LOC: BIMLAB 13:37
PROVIDERS: PCP Internal Medicine; Referring Provider Internal Medicine; Visit Provider Internal Medicine
DX: I10 Essential (primary) hypertension (principal); I25.10 Atherosclerotic heart disease of native coronary artery without angina pectoris; Z95.1 Presence of aortocoronary bypass graft
CPT/HCPCS: 36415; 80053; 80061; 85025

== ENCOUNTER → 2022-12-29 | Outpatient (CLI) | payer OTHER, SELFPAY | END | disposition home or self-care (01) | PROVIDERS: PCP Internal Medicine; Visit Provider Nurse Practitioner Gerontology | DX: R00.2 Palpitations (principal) | CPT/HCPCS: 93225; 93226 ==

== ENCOUNTER → 2023-02-05 | Outpatient (CLI) | payer OTHER, SELFPAY ==
[2023-02-05 15:29] LABS: PSA,Total - Annual Screen 0.53 ng/mL (0.00-4.00)
[2023-02-05 15:31] LABS: Hemoglobin A1c 5.7 % (3.8-5.6)
== END | disposition home or self-care (01) ==
LOC: BIMLAB 13:39
PROVIDERS: PCP Internal Medicine; Visit Provider Internal Medicine
DX: R73.03 Prediabetes (principal); N40.0 Benign prostatic hyperplasia without lower urinary tract symptoms
CPT/HCPCS: 36415; 83036; 84153; G0103

== ENCOUNTER 2023-03-30 06:56 | Day surgery (SDC) | payer OTHER, SELFPAY ==
[2023-03-30] MEDS: Lactated Ringers 1,000 ML 15 ML IV (07:26)
[2023-03-30 07:27] VITALS: BP 123/95; PULSE 88; RESP 18; TEMP 36.1; O2SAT 100; BMI 26.3
--- NOTE | 2023-03-30 07:42 | HP.PCM_ITS ---
History and Physical Date of Admission: 03/30/23 Intake Vital Signs ? 02/20/2308:19 Height 6 ft Weight: 197 lb 8 oz BMI 26.7 BP 120/85 H Blood Pressure LocationB Lt radial Position Sitting Respiration 18 Pulse 75 Pulse Source Monitor Temp 97.4 F L Temp Source Temporal Pulse Oximetry (%) 96 Oxygen Delivery Method room air Intake Visit Reasons:?GASTROINTESTINAL HEMORRHAGE Chief Complaint: consult Histology Technologist Required: No Is patient in pain?: No Allergies No Known Allergies Allergy (Verified 02/19/23 08:22) Medications acetaminophen 325 mg tablet 650 mg PO Q4H PRN 11/21/22 [History Confirmed 02/19/23] aspirin 81 mg chewable tablet (Sinnet Chewable Low Dose Aspirin) 81 mg PO DAILY 11/21/22 [History Confirmed 02/19/23] trazodone 50 mg tablet 50 mg PO DAILY PRN sleep 11/21/22 [History Confirmed 02/19/23] nicotine 14 mg/24 hr daily transdermal patch 1 patch transdermal Q24H #28 ea 12/06/22 [Rx Confirmed 02/19/23] atorvastatin 80 mg tablet 80 mg PO QHS #90 tabs 02/13/23 [Rx Confirmed 02/19/23] clopidogrel 75 mg tablet (Plavix) 75 mg PO DAILY #90 tabs 02/13/23 [Rx Confirmed 02/19/23] metoprolol tartrate 25 mg tablet 12.5 mg PO BID #90 tabs 02/13/23 [Rx Confirmed 02/19/23] PFSH Medical History? Alcohol abuse Atherosclerotic heart disease of [place] coronary artery without angina pectoris Bilateral shoulder pain Borderline type 2 diabetes mellitus BPH (benign prostatic hyperplasia) Essential hypertension GI bleed Multi-vessel coronary artery stenosis (11/08/22) Second degree bansal Tobacco abuse Surgical History? History of coronary artery bypass surgery (~11/13/22) Family History? Grandmother Breast cancerFather Prostate cancer Skin cancer CAD (coronary artery disease)Mother Hypertension High cholesterolGrandfather CAD (coronary artery disease) Social History? Smoking Status:? Current every day smoker tobacco type: cigarettes alcohol intake:? current alcohol intake frequency: 3 or more drinks per day Alcohol type: beer substance use type:? does not use what type of physical activity do you participate in:? none HPI HPI HPI: Patient is a 52-year-old male here for GI bleeding.? Over the past few years patient has had intermittent bleeding per rectum.? His last episode was a few weeks ago.? He has no bleeding since.? He denies abdominal pain.? He says the blood is bright red.? He does not have pain during bowel movements or firm hard to pass stools.? Patient has no family history of colon cancer.? He has never had a colonoscopy.? Patient had a cardiac bypass in October.? He is on aspirin and Plavix. ROS General General: Yes fatigue; No weight change, appetite, colon cancer, breast cancer or weakness HEENT HEENT: No difficulty swallowing, eye injury, eye surgery, swollen glands or hoarseness Endo Endocrine: No thyroid disease, diabetes mellitus, thyroid cancer, Hair loss, heat intolerance or cold intolerance Skin Skin: No rash or changing moles Breast Breast: No left breast lump, right breast lump, nipple discharge, breast pain, abnormal mammogram, abnormal US or breast enlargement Musc Musculoskeletal: No back problems, arthritis, rheumatoid arthritis, gout or joint pain Cardio Cardiovascular: Yes heart disease, high blood pressure and heart attack; No murmur, pacemaker, atrial fibrillation, heart stent, palpitations, shortness of breat with exertion or chest pain Psych Psychiatric: No depression, anxiety or hearing voices Resp Respiratory: Yes shortness of breath, No sleep apnea, No cough, No COPD, No asthma, No emphysema and No wheezing Gastro Gastrointestinal: No abdominal pain, No nausea or vomiting, Yes diarrhea, No constipation, Yes blood in stool, No acid reflux, No hemorrhoids, No ulcers, No gallbladder problem and No black,tarry stools Herminio Hematologic: Yes blood thinners, No blood disorders, Yes bleeding, No anemia and No blood clots Neuro Neurologic: No system reviewed and no additional complaints, except as documented, No as per HPI, No abnormal gait, No abnormal hearing, No abnormal movements, No abnormal speech, No behavioral changes, No burning sensations, No confusion, No convulsions, No disequilibrium, No dizziness, No localized weakness, No frequent falls, No headache(s), No lack of coordination, No loss of vision, No memory loss, No numbness, No other visual disturbances, No radicular pain, No restless legs, No sensory deficit, No syncope, No tingling, No tremor(s), No weakness and No other Exam Const General: cooperative Orientation: alert and oriented x3 HENMT Head: normal to inspection Neck Neck: normal visual inspection and full ROM Chest Chest palpation & inspection: normal inspection of the chest Resp Effort & Inspection: normal respiratory effort Auscultation: clear to auscultation bilaterally Cardio Rate: regular rate Rhythm: regular rhythm GI Inspection: non-distended Palpation: soft and nontender Skin General: no rashes or lesions noted Neuro General: patient alert and patient oriented x3 Extrem General: full ROM Psych Appearance: grossly normal Mental Status: mental status grossly normal Assessment and Plan Assessment and Plan (1) GI bleed: ?Status:?Chronic ?Plan: Patient had his last episode of bright red blood per rectum a few weeks ago.? I recommend colonoscopy and discussed this with him.? 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 I explained endoscopy in detail to the patient.? I explained the risks including but not limited to stroke or heart attack with anesthesia, perforation of the GI tract, bleeding, infection.? I explained that any of these could necessitate further emergency surgery.? The patient understands and all questions were answered sufficiently.? The patient wishes to proceed with procedure. Mesfin Brunner MD Pager: [facility] [address] [place] [address], [address] [place] [address] Office: I have examined the patient and the H&P has been reviewed. There are no clinical changes since date of exam.
[2023-03-30 08:08] VITALS: BP 113/90; BP 125/95; PULSE 78; RESP 18; TEMP 36.1; O2SAT 99
[2023-03-30 08:15] VITALS: BP 125/95; BP 96/65; PULSE 75; RESP 16; O2SAT 99
--- NOTE | 2023-03-30 08:18 | OP.COLON_ITS ---
Patient Name: Brayan Bauman Procedure Date: 03/30/2023 7:50 AM Date of : 1970 Age: 52 Procedure: Colonoscopy Indications: Rectal bleeding Providers: Mesfin Brunner MD Medicines: Monitored Anesthesia Care Patient Profile: This is a 52 year old male. Refer to note in patient chart for documentation of history and physical. Last Colonoscopy: date unknown. Unable to locate last colonoscopy report. Complications: No immediate complications. Estimated blood loss: Minimal. Procedure: Pre-Anesthesia Assessment: - Prior to the procedure, a History and Physical was performed, and patient medications and allergies were reviewed. The patient's tolerance of previous anesthesia was also reviewed. The risks and benefits of the procedure and the sedation options and risks were discussed with the patient. All questions were answered, and informed consent was obtained. Prior Anticoagulants: The patient has taken Plavix (clopidogrel), last dose was 5 days prior to procedure. ASA Grade Assessment: II - A patient with mild systemic disease. After reviewing the risks and benefits, the patient was deemed in satisfactory condition to undergo the procedure. After I obtained informed consent, the scope was passed under direct vision. Throughout the procedure, the patient's blood pressure, pulse, and oxygen saturations were monitored continuously. The colonoscope was introduced through the anus and advanced to the cecum, identified by appendiceal orifice and ileocecal valve. The colonoscopy was performed without difficulty. The patient tolerated the procedure well. The quality of the bowel preparation was good. Scope In: 7:54:49 AM Scope Withdrawal Time 0 hours 6 minutes 21 seconds Scope Out: 8:06:21 AM Total Procedure Duration Time 0 hours 11 minutes 32 seconds Findings: The entire examined colon appeared normal on direct and retroflexion views. Non-bleeding internal hemorrhoids were found during retroflexion. The hemorrhoids were mild and Grade I (internal hemorrhoids that do not prolapse). Impression: - The entire examined colon is normal on direct and retroflexion views. - Non-bleeding internal hemorrhoids. - No specimens collected. Recommendation: - Discharge patient to home. - Resume previous diet. - Continue present medications. - Resume Plavix (clopidogrel) at prior dose today. - Repeat colonoscopy in 10 years for screening purposes. Procedure Code(s): --- Professional --- 19275, Colonoscopy, flexible; diagnostic, including collection of specimen(s) by brushing or washing, when performed (separate procedure) Diagnosis Code(s): --- Professional --- K64.0, First degree hemorrhoids K62.5, Hemorrhage of anus and rectum CPT copyright 2017 [employer]. All rights reserved. The codes documented in this report are preliminary and upon certified procedural coder review may be revised to meet current compliance requirements. Mesfin Brunner MD 03/30/2023 8:17:37 AM This report has been signed electronically. Number of Addenda: 0 Note Initiated On: 03/30/2023 7:50 AM
--- NOTE | 2023-03-30 08:19 | OP.CCLET_ITS ---
03/30/2023 Lee Cuello MD [address] [place] [address] [place] [address] Re : Colonoscopy procedure for Brayan Bauman Dear Dr. Cuello This procedure was performed on Thursday, March 30, 2023. My impressions and recommendations are as follows: Impressions : - The entire examined colon is normal on direct and retroflexion views. - Non-bleeding internal hemorrhoids. - No specimens collected. Recommendations : - Discharge patient to home. - Resume previous diet. - Continue present medications. - Resume Plavix (clopidogrel) at prior dose today. - Repeat colonoscopy in 10 years for screening purposes. My findings are described in the full procedure note, which is enclosed. If I can be of further assistance, please feel free to contact me at Doctor phone number(s): , Work: . Sincerely, Mesfin Brunner MD 03/30/2023 8:17:37 AM This report has been signed electronically.
[2023-03-30 08:20] VITALS: BP 115/87; BP 125/95; PULSE 73; RESP 16; O2SAT 99
[2023-03-30 08:25] VITALS: BP 119/88; BP 125/95; PULSE 76; RESP 16; TEMP 36.1; O2SAT 100
[2023-03-30 08:40] VITALS: BP 125/95
== END 2023-03-30 08:48 | disposition home or self-care (01) ==
LOC: EN 06:56 → AC 06:58
PROVIDERS: PCP Internal Medicine; Referring Provider Internal Medicine; Visit Provider Surgery
PROC: 0DJD8ZZ Inspection of Lower Intestinal Tract, Via Natural or Artificial Opening Endoscopic (ICD-10-PCS; CPT 45378; principal; 2023-03-30 07:55)
DX: K64.0 First degree hemorrhoids (principal); K62.5 Hemorrhage of anus and rectum
CPT/HCPCS: 45378; J7120; J2405

== ENCOUNTER → 2023-08-30 | Outpatient (CLI) | payer OTHER, SELFPAY ==
--- NOTE | 2023-08-30 15:47 | RAD_ITS ---
INDICATION: Chest pain, protrusion on left chest EXAMINATION/TECHNIQUE: X-RAY - XR Chest 2 Views COMPARISON: 11/05/2022. FINDINGS: LINES/DEVICES: None. LUNGS: No consolidation, edema or effusion. No pneumothorax. MEDIASTINUM AND CARDIOVASCULAR STRUCTURES: Cardiac silhouette not enlarged. Prior sternotomy. Central airways and mediastinal contour are unremarkable. BONES AND SOFT TISSUES: Unremarkable. RAD/Chest PA and Lateral IMPRESSION: No radiographic evidence of acute cardiopulmonary disease. Electronically Signed: Yen Baugh MD at 16:34 EST Reading Location ID and State: [id number] / Tel , Service support ,
[2023-08-30 16:02] LABS: Absolute Neutrophil Count 4.2 X10^3/uL (2.0-7.7); Basophil# 0.07 X10^3/uL; Basophil% 0.9 % (0-1); Eosinophil# 0.12 X10^3/uL; Eosinophils% 1.5 % (0-5); Hematocrit 41.6 % (40-54); Hemoglobin 13.5 g/dL (13.0-16.5); Lymphocyte % 35.9 % (19-41); Mean Corp Hgb Conc 32.5 g/dL (32-36); Mean Corpuscular Hgb 28.9 pg (27.0-32.0); Mean Corpuscular Volume 89.1 fL (80-94); Mean Platelet Vol. 10.2 fl (6.2-12.0); Monocyte# 0.73 X10^3/uL; NRBC Flagged by Analyzer 0 % (0-5); Neutrophil # 4.23 X10^3/uL (2.7-7.7); Neutrophil % 52.5 % (47-70); Platelet Count 245 K/mm3 (150-450); RBC Distribution Width CV 13.4 % (11.6-14.6); RBC Distribution Width SD 43.8 fl (35.1-43.9); Red Blood Count 4.67 M/mm3 (4.6-6.2); White Blood Count 8.1 K/mm3 (4.4-11.0)
[2023-08-30 16:26] LABS: Anion Gap 4 (5-15); BUN 20 mg/dL (7-18); BUN/Creat Ratio 18.5 RATIO (10-20); Calcium,Total 9.6 mg/dL (8.5-10.1); Chloride 111 mmol/L (98-107); Creatinine, Serum 1.08 mg/dL (0.70-1.30); EST Glomerular Filtration Rate 77 mL/min (>60); Est Glom Filt Rate - Afr Amer 93 mL/min (>60); Glucose 115 mg/dL (74-106); Sodium Level 143 mmol/L (136-145)
[2023-09-03 11:07] LABS: Vitamin D 1,25-Dihydroxy 30.6 pg/mL (24.8-81.5)
== END | disposition home or self-care (01) ==
LOC: RAD 15:45
PROVIDERS: PCP Internal Medicine; Referring Provider Nurse Practitioner Gerontology; Visit Provider Nurse Practitioner Gerontology
DX: R07.9 Chest pain, unspecified (principal); E55.9 Vitamin D deficiency, unspecified; R53.83 Other fatigue
CPT/HCPCS: 36415; 71046; 80048; 82652; 84443; 85025

== ENCOUNTER → 2023-10-11 | Outpatient (CLI) | payer OTHER, SELFPAY ==
--- NOTE | 2023-10-16 07:02 | STRESSREP_ITS ---
Stress Test Report Exercise myocardial perfusion stress test. 53-year-old man with a history of chest pain. Stress protocol: Resting EKG demonstrates normal sinus rhythm with a rate of 66 bpm resting blood pressure is 116/80 mmHg. The patient exercised according to the regular Dany protocol for a total duration of 6 minutes and 30 seconds attaining a maximum heart rate of 157 bpm which was 92% of maximum predicted heart rate; the maximum workload was 8.5 metabolic equivalents. At rest there were no ST or T wave changes noted to suggest ischemia and at peak exercise upsloping ST changes only were noted which did not meet the criteria for ischemia. No clinical angina was noted the test was terminated due to the target heart rate being achieved/fatig ue. The peak blood pressure was 140/74 mmHg. Rate-pressure product was 20,000. Myocardial perfusion protocol. 14.1 mCi of technetium 99m sestamibi was injected at rest. The patient exercised according to regular Dayn protocol for total duration of 6 minutes and 30 seconds and at peak exercise 44.8 mCi of technetium 99m sestamibi was injected stress images were obtained stress and rest images were reconstructed in comparing the short axis vertical long and horizontal long axis. Gated images were also obtained. Perfusion SPECT analysis: Review of the stress images demonstrate normal uptake of tracer noted in all areas of the myocardium. The resting images similarly demonstrate normal uptake of tracer noted in all areas of the myocardium. No areas of reversibility are noted to suggest ischemia no previous infarct was noted. Gated SPECT analysis: The gated ejection fraction is 73%. Conclusion: Normal exercise myocardial perfusion stress test at a moderate workload Preserved ejection fraction.
== END | disposition home or self-care (01) ==
LOC: CVS 06:26
PROVIDERS: PCP Internal Medicine; Referring Provider Nurse Practitioner Gerontology; Visit Provider Nurse Practitioner Gerontology
DX: R07.9 Chest pain, unspecified (principal); Z95.1 Presence of aortocoronary bypass graft
CPT/HCPCS: 78452; 93017; A9500; A4216

== ENCOUNTER → 2024-01-25 | Outpatient (CLI) | payer OTHER, SELFPAY ==
--- NOTE | 2024-01-25 17:50 | CT_ITS ---
INDICATION: Pain in sternum EXAMINATION: CT CHEST WITHOUT CONTRAST - CT Chest W/O Contrast Injection TECHNIQUE: Helically acquired images were obtained of the chest. A radiation dose optimization technique was used for this scan. IV Contrast dosage and agent: None. COMPARISON: None. FINDINGS: Status post median sternotomy. LUNGS, PLEURA AND LARGE AIRWAYS: Mild bilateral apical scarring. Mild emphysema. No noncalcified nodule or mass. No pleural effusion or thickening. No pneumothorax. THYROID: No thyroid lesions. HEART AND PERICARDIUM: Heart size is normal. No pericardial effusion. CORONARY ARTERIES: Coronary artery calcification is seen. VESSELS: Thoracic aorta is not dilated. MEDIASTINUM AND NOAH: No mediastinal or hilar adenopathy. Esophagus is unremarkable. No hiatal hernia. UPPER ABDOMEN: No acute pathology. BONES: No suspicious lytic or blastic abnormality. CT/Chest without Contrast IMPRESSION: 1. Mild emphysema with some mild bilateral apical scarring but no pneumonia, atelectasis, nodule, or mass. 2. Status post median sternotomy. Electronically Signed: Vignesh Loo MD at 21:09 EDT ,
== END | disposition home or self-care (01) ==
PROVIDERS: PCP Internal Medicine; Referring Provider Nurse Practitioner Gerontology; Visit Provider Nurse Practitioner Gerontology
DX: R07.89 Other chest pain (principal); Z95.1 Presence of aortocoronary bypass graft
CPT/HCPCS: 71250

== ENCOUNTER → 2024-04-01 | Outpatient (CLI) | payer OTHER, SELFPAY ==
[2024-04-01 15:39] LABS: BNP,B-Type NATRIURETIC PEPTIDE 15.5 pg/mL (0-100)
[2024-04-01 15:40] LABS: Anion Gap 8 (5-15); BUN 25 mg/dL (7-18); BUN/Creat Ratio 19.8 RATIO (10-20); Calcium,Total 9.1 mg/dL (8.5-10.1); Chloride 107 mmol/L (98-107); Creatinine, Serum 1.26 mg/dL (0.70-1.30); EST Glomerular Filtration Rate 64 mL/min (>60); Est Glom Filt Rate - Afr Amer 77 mL/min (>60); Glucose 136 mg/dL (74-106); Potassium 3.9 mmol/L (3.5-5.1); Sodium Level 140 mmol/L (136-145)
== END | disposition home or self-care (01) ==
LOC: LAB 14:05
PROVIDERS: PCP Internal Medicine; Referring Provider Nurse Practitioner Gerontology; Visit Provider Nurse Practitioner Gerontology
DX: R06.02 Shortness of breath (principal); M25.473 Effusion, unspecified ankle
CPT/HCPCS: 36415; 80048; 83880

== ENCOUNTER 2024-09-29 16:55 | Emergency (ER) | payer OTHER, SELFPAY ==
[2024-09-29 16:56] VITALS: BP 144/102; PULSE 99; RESP 18; TEMP 36.9; O2SAT 99; BMI 31.4
--- NOTE | 2024-09-29 17:47 | ED.RN ---
Pt requesting to leave AMA and transport himself to another hospital per Dr. Hough. AMA paperwork signed.
--- NOTE | 2024-09-29 17:54 | EX.ED.UPPERE ---
HPI History of Present Illness Chief Complaint: Upper Extremity Injury Narrative Narrative: Chief complaint and HPI: Left elbow pain. 54-year-old male with past medical history of HTN, HLD, CAD, depression and anxiety presents for evaluation of left elbow pain. Patient states he developed pain in his left elbow approximately 5 days ago. He states since then the pain has worsened. Pain is worse with movement. He endorses swelling and redness to the elbow. Patient denies any trauma or injury. Denies any IV drug abuse. Endorses decreased appetite and last ate yesterday. Not on blood thinners. History of gout but states this feels different. Patient went to urgent care and they sent him here for concern for septic arthritis. Review of systems: See HPI Medications: As listed on the chart Allergies: As listed on the chart PFSH: Per chart Vital signs: As listed on the chart. Reviewed. Physical exam: Gen: A&O x3, NAD Head: Normocephalic, atraumatic Eyes: No sclera icterus, conjunctiva clear ENT: Moist mucous membranes CV: RRR, no murmurs Resp: Lungs CTA BL, no w/r/c Musc: Limited active and passive range of motion secondary to pain in the left elbow, left elbow is swollen/erythematous/warm, compartments soft, good capillary refill, radial/ulnar pulses plus 2 out of 4 Neuro: Alert, oriented, grossly intact, sensation intact Psych: Cooperative, appropriate mood and affect [facility] Medical History Gout Wears glasses History of steroid therapy High cholesterol History of heart attack Former smoker History of echocardiogram Cardiology follow-up encounter BPH (benign prostatic hyperplasia) GI bleed Borderline type 2 diabetes mellitus Bilateral shoulder pain Essential hypertension Atherosclerotic heart disease of [place] coronary artery without angina pectoris Multi-vessel coronary artery stenosis (11/08/22) Alcohol abuse Tobacco abuse Second degree bansal Home Medications ?Medication ?Instructions ?Recorded ?Last Taken ?Type acetaminophen 325 mg tablet 650 mg PO Q4H PRN Pain 11/21/22 Unknown History aspirin 81 mg chewable tablet 81 mg PO DAILY 11/21/22 03/24/23 History (Alyse Chewable Low Dose Aspirin) cholecalciferol (vitamin D3) 10 10 mcg PO DAILY 09/19/23 Unknown History mcg (400 unit) capsule alprazolam 0.25 mg tablet (Xanax) 0.25 mg PO DAILY PRN anxiety #5 10/10/23 Unknown Rx tabs atorvastatin 80 mg tablet 40 mg (1/2 x 80 mg) PO QHS #90 tabs 04/21/24 Unknown Rx metoprolol tartrate 25 mg tablet 12.5 mg (1/2 x 25 mg) PO BID #90 04/21/24 Unknown Rx tabs sertraline 150 mg capsule 150 mg PO QDAY #30 caps 09/17/24 Unknown Rx Allergy/AdvReac Type Severity Reaction Status Date / Time No Known Allergies Allergy Verified 07/24/24 14:20 Family History Grandmother Breast cancer Father Prostate cancer Skin cancer CAD (coronary artery disease) Mother Hypertension High cholesterol Grandfather CAD (coronary artery disease) Surgical History History of cardiac catheterization History of coronary artery bypass surgery (~11/13/22) Social History (Updated 07/24/24 @ 14:[address] 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 Smoking Status: Current every day smoker tobacco type: e-cigarettes Electronic Cigarette Use: with nicotine alcohol intake: current alcohol intake frequency: 3 or more drinks per day Alcohol type: beer substance use type: does not use what type of physical activity do you participate in: none EXAM Physical Exam Const Vital Signs: 09/29/24 16:56 Temperature 98.4 F Temperature Source Temporal Pulse Rate 99 Respiratory Rate 18 Blood Pressure 144/102 H Blood Pressure Mean 116 Pulse Ox 99 Oxygen Delivery Method Room Air MDM MDM MDM Narrative Medical decision making narrative: 54-year-old male with past medical history of HTN, HLD, CAD, depression, and anxiety presents for evaluation of left elbow pain. Patient's left elbow is swollen, erythematous, warm, tender. Limited in passive and active range of motion. Concern is for septic arthritis. Differential diagnosis also includes gout, bursitis, cellulitis. Patient does not follow with an orthopedic surgeon. We do not have orthopedic surgery on-call. Patient was made aware of this as well as my suspicion for septic arthritis. I told him I would like to perform laboratory workup as well as he will likely require arthrocentesis of the left elbow and transfer to another facility due to us not having orthopedic surgery on-call today. Patient states that he would like to leave our emergency department and instead drive to a facility where orthopedic surgery is available so that he will not have to be transferred. I did explain to the patient that septic arthritis is an emergency and I do not advise this. I recommend continuing care here in our emergency department and then transfer. Patient does not wish to have any workup performed here and would like to discharge. I did explain to him given my suspicion for septic arthritis he would have to leave AGAINST MEDICAL ADVICE. The patient has chosen to leave against medical advice. I personally explained to him that choosing to do so may result in permanent bodily harm or . I discussed at length that without further evaluation and monitoring there may be unforeseen circumstances and deterioration causing permanent bodily harm or because of his choice. He is alert and oriented and can make his own own decisions. He states that he is aware of the serious risks as explained, but continues to wish to leave against medical advice. He has been advised that he should return to the ED immediately if he changes his mind at any time, or if his condition begins to change or worsen. He confirmed understanding. Impression: 1. Left elbow pain, suspect septic arthritis 2. Left AMA Discharge Plan Triage Chief Complaint: Upper Extremity Injury ED Provider: Gianni Hernandez Dx/Rx/DC Orders Clinical Impression: Septic arthritis of elbow, left Prescriptions: No Action acetaminophen 325 mg tablet 650 mg PO Q4H PRN (Reason: Pain) aspirin [Alyse Chewable Aspirin] 81 mg tablet,chewable 81 mg PO DAILY cholecalciferol (vitamin D3) 10 mcg (400 unit) capsule 10 mcg PO DAILY alprazolam [Xanax] 0.25 mg tablet 0.25 mg PO DAILY PRN (Reason: anxiety) Qty: 5 0RF metoprolol tartrate 25 mg tablet 12.5 mg PO BID Qty: 90 3RF atorvastatin 80 mg tablet 40 mg PO QHS Qty: 90 3RF sertraline 150 mg capsule 150 mg PO QDAY Qty: 30 0RF Primary Care Provider: Lee Cuello Referrals: Lee Cuello MD [Primary Care Provider] - Activity Restrictions/Additional Instructions: You have chosen to leave against medical advice. You should return to the ED immediately if you change your mind at any time. Print Language: [place] Citizen Disposition Disposition: Against Medical Advice Discharge Date/Time: 09/29/24 18:05
== END 2024-09-29 18:05 | disposition left against medical advice (07) ==
PROVIDERS: Emergency Provider Surgery; PCP Internal Medicine; Visit Provider Surgery
DX: M00.822 Arthritis due to other bacteria, left elbow (principal); I25.10 Atherosclerotic heart disease of native coronary artery without angina pectoris; E78.5 Hyperlipidemia, unspecified; I10 Essential (primary) hypertension; Z95.1 Presence of aortocoronary bypass graft; F17.290 Nicotine dependence, other tobacco product, uncomplicated; F32.A Depression, unspecified; F41.9 Anxiety disorder, unspecified
CPT/HCPCS: 99282

== ENCOUNTER → 2024-10-20 | Outpatient (CLI) | payer OTHER, SELFPAY ==
--- NOTE | 2024-10-20 16:50 | RAD_ITS ---
STUDY: X-RAY - PELVIS AND RIGHT HIP REASON FOR EXAM: Male, 54 years old. Right hip pain. TECHNIQUE: 3 views of the pelvis and right hip. COMPARISON: Pelvis and bilateral hip radiographs dated 08/05/2020. FINDINGS: There is a non-specific bowel gas pattern. Normal visualized soft tissue structures. Normal bilateral iliac wings, sacroiliac joints and visualized sacrum. Normal bilateral superior and inferior pubic rami. Normal pubic symphysis. Normal bilateral ischial tuberosities. There is new lucency and sclerosis in the right superior femoral head, compatible with avascular necrosis. There is new flattening of the articular surface of the right superior femoral head, compatible with subchondral collapse. There is unchanged avascular necrosis of the left femoral head. RAD/HIP, UNI W/ Pelvis 2-3 Views IMPRESSION: New avascular necrosis in the right superior femoral head. New flattening of the articular surface of the right superior femoral head, compatible with subchondral collapse. Unchanged avascular necrosis of the left femoral head. Electronically Signed: Forrest Estevez MD at 15:26 EST ,
== END | disposition home or self-care (01) ==
LOC: MTRAD 16:44
PROVIDERS: PCP Family Medicine; Referring Provider Family Medicine; Visit Provider Family Medicine
DX: M25.551 Pain in right hip (principal)
CPT/HCPCS: 73502

== ENCOUNTER → 2024-10-31 | Outpatient (CLI) | payer OTHER, SELFPAY ==
[2024-10-31 11:36] LABS: AST(SGOT) 30 U/L (15-37); Alanine Aminotransfer ALT/SGPT 48 U/L (16-61); Albumin, Serum 4.1 g/dL (3.2-5.0); Alkaline Phosphatase 90 U/L (45-117); Bilirubin, Direct 0.13 mg/dL (0.00-0.30); Cholesterol 195 mg/dL (200); Globulin 3.5 g/dL (2.2-4.2); High Density Lipoprotein 51 mg/dL; Protein, Total 7.6 g/dL (6.4-8.2); Triglycerides 162 mg/dL; Very Low Density Lipoprotein 32 mg/dL (5-40)
== END | disposition home or self-care (01) ==
LOC: LAB 10:11
PROVIDERS: PCP Family Medicine; Referring Provider Internal Medicine Cardiovascular Disease; Visit Provider Internal Medicine Cardiovascular Disease
DX: R53.83 Other fatigue (principal); E78.00 Pure hypercholesterolemia, unspecified; I25.10 Atherosclerotic heart disease of native coronary artery without angina pectoris
CPT/HCPCS: 36415; 80061; 80076

== ENCOUNTER → 2024-12-26 | Outpatient (CLI) | payer OTHER, SELFPAY ==
[2024-12-26 18:52] LABS: Uric Acid 10.8 mg/dL (3.5-7.2)
== END | disposition home or self-care (01) ==
LOC: MFPLAB 16:04
PROVIDERS: PCP Family Medicine; Referring Provider Family Medicine; Visit Provider Family Medicine
DX: M10.9 Gout, unspecified (principal)
CPT/HCPCS: 36415; 84550

== ENCOUNTER 2025-02-06 08:42 | Outpatient (CLI) | payer OTHER, SELFPAY ==
[2025-02-06 11:20] LABS: Uric Acid 9.5 mg/dL (3.5-7.2)
== END 2025-02-06 23:59 | disposition home or self-care (01) ==
LOC: MTLAB 08:43
PROVIDERS: PCP Family Medicine; Referring Provider Orthopaedic Surgery; Visit Provider Orthopaedic Surgery
DX: M87.051 Idiopathic aseptic necrosis of right femur (principal); M25.551 Pain in right hip; M10.051 Idiopathic gout, right hip; F17.290 Nicotine dependence, other tobacco product, uncomplicated
CPT/HCPCS: 36415; 84550

== ENCOUNTER → 2025-03-16 | Outpatient (CLI) | payer OTHER, SELFPAY ==
--- NOTE | 2025-03-16 16:59 | RAD_ITS ---
PROCEDURE: FOOT MIN 3 VIEWS 03/16/2025 REASON FOR EXAM: LEFT FOOT PAIN TECHNIQUE: 3 views of the left foot. COMPARISON: None FINDINGS: Bones: No visible fracture. No suspicious bone lesion. Joints: Normal alignment. Joint spaces preserved. No arthropathic features. Soft tissues: Soft tissues are unremarkable. RAD/Foot min 3 Views IMPRESSION: Unremarkable radiographs of the left foot. Reading Location: [facility]
== END | disposition home or self-care (01) ==
LOC: MTLAB 16:34
PROVIDERS: PCP Family Medicine; Referring Provider Family Medicine; Visit Provider Family Medicine
DX: M79.672 Pain in left foot (principal)
CPT/HCPCS: 36415; 73630; 84550

== ENCOUNTER → 2025-05-13 | Outpatient (CLI) | payer OTHER, SELFPAY ==
--- NOTE | 2025-05-13 18:56 | CT_ITS ---
PROCEDURE: EXTREMITY LOWER WITHOUT CONTRA 05/13/2025 REASON FOR EXAM: TEMPLATING FOR RIGHT JENNIE TECHNIQUE: EXTREMITY LOWER WITHOUT CONTRA Coronal and Sagittal reconstruction series were provided. CONTRAST: None One or more dose reduction techniques were used (e.g., Automated exposure control, adjustment of the mA and/or kV according to patient size, use of iterative reconstruction technique). RADIATION DOSE SUMMARY: DLP: 976 mGycm COMPARISON: April 24, 2025 FINDINGS: There is advanced osteoarthritis of the right hip with stage IV AVN, with subcortical cyst formation in the femoral head and acetabulum, with flattening and partial collapse of the right femoral head articular surface. There is no dislocation. Adjacent muscular structures appear intact. Pelvic bones appear intact. Atherosclerotic calcifications are visible. There is no pathologic adenopathy. CT/Extremity Lower without Contra IMPRESSION: There is advanced osteoarthritis of the right hip with stage IV AVN, with subco rtical cyst formation in the femoral head and acetabulum, with flattening and partial collapse of the right femoral head joshua cular surface. Reading Location: [facility]
== END | disposition home or self-care (01) ==
PROVIDERS: PCP Family Medicine; Referring Provider Orthopaedic Surgery; Visit Provider Orthopaedic Surgery
DX: M87.051 Idiopathic aseptic necrosis of right femur (principal)
CPT/HCPCS: 73700

== ENCOUNTER → 2025-05-14 | Outpatient (CLI) | payer OTHER, SELFPAY ==
[2025-05-15 03:00] LABS: AST(SGOT) 43 U/L (<=37); Alanine Aminotransfer ALT/SGPT 51 U/L (<=46); Alkaline Phosphatase 142 U/L (40-129); Globulin 3.0 g/dL (2.2-4.2); PSA,Total - Annual Screen 0.43 ng/mL (0.02-4.00)
== END | disposition home or self-care (01) ==
PROVIDERS: PCP Family Medicine; Referring Provider Nurse Practitioner Family; Visit Provider Nurse Practitioner Family
DX: Z13.1 Encounter for screening for diabetes mellitus (principal); Z12.5 Encounter for screening for malignant neoplasm of prostate; M10.9 Gout, unspecified
CPT/HCPCS: 36415; 80048; 82247; 82985; 83036; 83735; 84075; 84153; 84155; 84450; 84460; 84550; 85610; 86850; 86900; 86901; 87081; G0103

== ENCOUNTER 2025-05-19 06:15 | Day surgery (SDC) | payer OTHER, SELFPAY ==
--- NOTE | 2025-05-12 11:53 | EKG12_ITS ---
Test Reason : PREOP Blood Pressure : */* mmHG Vent. Rate : 81 BPM Atrial Rate : 81 BPM P-R Int : 150 ms QRS Dur : 88 ms QT Int : 416 ms P-R-T Axes : 66 61 69 degrees QTcB Int : 483 ms Normal sinus rhythm Possible Left atrial enlargement Nonspecific ST and T wave abnormality Prolonged QT Abnormal ECG Confirmed by ANDERS ESPINOZA, GISSELL ([id number]), photo editor CHETAN STEEN ([id number]) on 05/13/2025 8:39:11 AM Referred By: Neville Mccall Confirmed By: GISSELL MCNAMARA MD
[2025-05-14 12:15] LABS: Hematocrit 41.0 % (40-54); Hemoglobin 13.6 g/dL (13.0-16.5); Immature Granulocytes Count 0.040 X10^3/uL (0.0-0.0); Mean Corp Hgb Conc 33.2 g/dL (32-36); Mean Corpuscular Volume 87.8 fL (80-94); Mean Platelet Vol. 10.3 fl (6.2-12.0); NRBC Flagged by Analyzer 0 % (0-5); Platelet Count 293 K/mm3 (150-450); RBC Distribution Width CV 14.3 % (11.6-14.6); RBC Distribution Width SD 45.4 fl (35.1-43.9); Red Blood Count 4.67 M/mm3 (4.6-6.2); White Blood Count 7.3 K/mm3 (4.4-11.0)
[2025-05-14 12:24] LABS: Partial Thromboplast Time 28.3 Seconds (24.1-36.2); Prothrombin Time (Protime)PT. 13.9 SECONDS (11.7-14.9)
[2025-05-14 13:01] LABS: Anion Gap 15 (5-15); BUN 15 mg/dL (4-19); BUN/Creat Ratio 14.8 RATIO (10-20); Calcium,Total 9.4 mg/dL (7.6-11.0); Carbon Dioxide 20.6 mmol/L (21.0-32.0); Chloride 105 mmol/L (98-108); Glucose 123 mg/dL (70-99); Potassium 4.0 mmol/L (3.3-5.1); Uric Acid 6.9 mg/dL (3.5-7.2)
[2025-05-14 13:02] LABS: Magnesium 2.0 mg/dL (1.5-2.2)
--- NOTE | 2025-05-15 19:18 | PAT.ANE_ITS ---
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 When Was Last Pacemaker Check QUESTION #4 FULL TEXT: You/Your Family Experience fever (hyperthermia) with Anesthesia Last Oral Intake Last Oral intake: Last Oral Intake NPO since Meds taken in AM with sips of water? 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 Female No 05/05/25 14:01 HX of Motion Sickness No 05/05/25 14:01 HX of N/V After Surgery No 05/05/25 14:01 Non-Smoker Yes 05/05/25 14:01 Duration of Surgery greater Yes 05/05/25 14:01 than 60 minutes Number of Risk Factors 2 05/05/25 14:01 PONV Score Moderate Risk 05/05/25 14:01 Height & Weight Height & Weight: Anesthesia: Height & Weight Height 6 ft 02/06/25 08:04 Respiratory Assessment Respiratory Assessment - downstream biomanufacturing technician: Respiratory Tract Infection Hx - downstream biomanufacturing technician Hx Respiratory Tract Infection No 05/05/25 14:01 STOP Sleep Apnea STOP Sleep Apnea - downstream biomanufacturing technician: STOP Sleep Apnea - downstream biomanufacturing technician Hx Hypertension Yes: CONTROLLED WITH MED 05/05/25 14:01 Hx Sleep Apnea No 05/05/25 14:01 CPAP BIPAP Do you snore loudly (louder Yes 05/05/25 14:01 than talking or can be heard Do you often feel tired/ Yes 05/05/25 14:01 fatigued/ sleepy during daytime? Has anyone observed you stop No 05/05/25 14:01 breathing during sleep? STOP Results Positive 05/05/25 14:01 QUESTION #5 FULL TEXT : Do you snore loudly (louder than talking or can be heard through closed doors)? 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 Specify any problems Hx of Preganancy in last 3 N/A 05/05/25 14:01 Months Nurse Filling Out Transfusion DSCHRIBER 05/05/25 14:01 & Questions: Date: 05/05/25 05/05/25 14:01 Time: 14:05 05/05/25 14:01 Patient unable to answer at this time (ie. confused, unrespo /Reproduction History /Reproductive History - downstream biomanufacturing technician: /Reproductive Hx- downstream biomanufacturing technician Hx Now No 05/05/25 14:01 Gestational Age (in weeks): EDC: Hx Hx Para Hx Section SAB No 05/05/25 14:01 PFSH Medical History Loss of hearing Depression Anxiety Alcohol use Arthritis Restless legs Back pain Gastric reflux Former smoker Shortness of breath on exertion Leg cramps History of pain when walking History of edema History of Holter monitoring History of stress test Gout Wears glasses High cholesterol History of heart attack History of echocardiogram Cardiology follow-up encounter BPH (benign prostatic hyperplasia) GI bleed Bilateral shoulder pain Essential hypertension Atherosclerotic heart disease of [place] coronary artery without angina pectoris Multi-vessel coronary artery stenosis (11/08/22) Second degree bansal Home Medications ?Medication ?Instructions ?Recorded ?Last Taken ?Type acetaminophen 325 mg tablet 650 mg PO Q4H PRN Pain 05/06 Unknown History cholecalciferol (vitamin D3) 10 10 mcg PO DAILY Unknown History mcg (400 unit) capsule alprazolam 0.25 mg tablet (Xanax) 0.25 mg PO DAILY PRN anxiety #5 10/10/23 Unknown Rx tabs atorvastatin 80 mg tablet 40 mg (1/2 x 80 mg) PO QHS # 90 tabs 04/21/24 Unknown Rx fluoxetine 20 mg capsule 20 mg PO DAILY 10/31/24 Unkn own History allopurinol 100 mg tablet 200 mg PO QDAY 01/09/25 Unkn own History metoprolol tartrate 25 mg tablet 12.5 mg (1/2 x 25 mg) PO BID #90 04/07/25 Unknown Rx tabs aspirin 81 mg chewable tablet 81 mg PO DAILY 05/14/25 Unknown History (Alyse Chewable Low Dose Aspirin) Allergy/AdvReac Type Severity Reaction Status Date / Time No Known Allergies Allergy Verified 05/14/25 10:21 Family History Grandmother Breast cancer Father Prostate cancer Skin cancer CAD (coronary artery disease) Mother Hypertension High cholesterol Grandfather CAD (coronary artery disease) Surgical History Hx of colonoscopy History of cardiac catheterization History of coronary artery bypass surgery (~11/13/22) Social History current occupational status: employed 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 Normal sinus rhythm. Possible left atrial enlargement. Nonspecific ST and T wave abnormality. Prolonged QT. Stress test pertinent findings: October 16, 2023. EF is 73%. No areas of reversibility noted to suggest ischemia. No previous infarct. Echo (EF%) pertinent findings: November 08, 2022. EF of 55%. RVSP is 25 mmHg. No aortic stenosis noted. Heart catheterization pertinent findings: November 09, 2022. EF of 60%. [place] multivessel coronary artery disease. Left main distal 90%. Mid LAD 50%. Mid circumflex 25%. Consult pertinent findings: May 14, 2025. [facility]. 1. Atherosclerotic heart disease of [place] coronary arteries without angina- patient is status post bypass graft surgery October 2022. [place] to the LAD and SVG to the OM branch of the circumflex. Denies anginal symptoms at this time. Continue medical therapy at this time. 2. Preop cardiovascular exam?acute-scheduled for right hip replacement. Hold aspirin 7 days. May proceed with orthopedic surgery. Additional pertinent findings: Holter monitor December 29, 2022. Average rhythm was normal sinus rhythm. There was no atrial fibrillation. Only 7 ventricular ectopic beats. No symptoms recorded in the diary. Recommendation Anesthesia Recommendation Anesthesia recommendation: OPTIMIZED for anesthesia
[2025-05-19] VITALS (13 sets, daily range): BP systolic 96–121; BP diastolic 66–82; PULSE 54–90; RESP 16–18; TEMP 36.2–36.6; O2SAT 96–100; BMI 26.4
--- OUTSIDE RECORDS SUMMARY | 2025-05-19 06:21 | XMS RPT_ITS | CCD ---
Author Organization [facility] Care Team Providers Care Apiarist Name Role Phone Dr. Denys Cuello Primary Care Provider [phone] Dr. Emelia Win Emergency Provider Dr. Marianne Estevez Admit Provider Dr. Marianne Estevez Attending Provider Dr. Marianne Estevez Other Provider Dr. Timmy Infante Other Provider Dr. Timmy Infante Attending Provider [phone] Denys Cuello MD Primary Care Provider [phone] Dr. Timmy Infante Referring Provider [phone] Becky Arreola Attending Provider Unavailable Dr. Denys Cuello Attending Provider [phone] Dr. Denys Cuello Referring Provider [phone] Shaun VILLALTA, ISABELLE Dunham Attending Provider Denys Cuello MD Primary Care Provider [phone] DEREK JARA Attending Unavailable DENYS CUELLO Primary Care Unavailable DENYS CUELLO B Referring Unavailable DEREK JARA Attending Unavailable DEREK JARA Referring Unavailable ANKIT, EFEWONGBE B Primary Care Unavailable DEREK JARA Attending Unavailable DEREK JARA Admitting Unavailable TIMMY INFANTE Referring Unavailable DEREK JARA Attending Unavailable ELOISA CUELLOEWTORIEBE B Primary Care Unavailable OLEGHE, EFEWONGBE B Referring Unavailable DEREK JARA Attending Unavailable DEREK JARA Referring Unavailable DENYS CUELLO Primary Care Unavailable Dr. Denys Cuello Primary Care Provider [phone] Dr. Emelia Win Emergency Provider Dr. Marianne Estevez Admit Provider Dr. Marianne Estevez Attending Provider Dr. Marianne Estevez Other Provider Dr. Timmy Infante Other Provider Dr. Timmy Infante Attending Provider Dr. Timmy Infante Referring Provider [phone] Becky Arreola Attending Provider Unavailable Dr. Denys Cuello Attending Provider [phone] Dr. Denys Cuello Referring Provider [phone] Shaun MOLDED GOODS OPERATOR, MOLDED GOODS OPERATOR-C Charla Attending Provider Dr. Denys Cuello Primary Care Provider [phone] Dr. Timmy Infante Attending Provider [phone] Dr. Mesfin Brunner Attending Provider VALORIE Valenzuela Attending Provider Dr. Mesfin Brunner Other Provider Unavailable Primary Care Provider UnavailDr. Denys Jorgensen Primary Care Provider [phone] Dr. Denys Cuello Referring Provider [phone] Shaun MOLDED GOODS OPERATOR, MOLDED GOODS OPERATOR-C Charla Attending Provider VALORIE Gusman Attending Provider [phone] Shaun MOLDED GOODS OPERATOR, MOLDED GOODS OPERATOR-C Charla Referring Provider Shaun MOLDED GOODS OPERATOR, MOLDED GOODS OPERATOR-C Charla Other Provider [phone] Dr. Velasquez Diop Attending Provider Dr. Denys Cuello Primary Care Provider [phone] Dr. Denys Cuello Referring Provider [phone] Moris EUGENE, PA Selwyn Attending Provider [phone] Shaun MOLDED GOODS OPERATOR, MOLDED GOODS OPERATOR-C Charla Referring Provider Shaun MOLDED GOODS OPERATOR, MOLDED GOODS OPERATOR-C Charla Other Provider [phone] Dr. Velasquez Diop Attending Provider [phone] Shaun MOLDED GOODS OPERATOR, MOLDED GOODS OPERATOR-C Charla Attending Provider Unavailable Primary Care Provider Unavailangela Cuello MD, Denys Yarbrough Primary Care Provider [phone] OLEADAM, EFEWONGBE B Primary Care Unavailable SOTO, PENNY Referring Unavailable OLEGHE, EFEWONGBE B Primary Care Unavailable OLEGHE, EFEWONGBE B Primary Care Unavailable SOTO, PENNY Referring Unavailable OLEGHE, EFEWONGBE B Primary Care Unavailable MATT CAZARES Attending Unavailable OLEGHE, EFEWONGBE Primary Care Unavailable NEETU GOMEZ Consulting Unavailable Dr. Denys Cuello MD Primary Care Provider Dr. Gianni Hernandez DO Attending Provider Dr. Gianni Hernandez DO Emergency Provider Jone ESPINOZA, Svitlana Primary Care Provider Svitlana Becerril MD Attending Provider Svitlana Becerril MD Referring Provider Dr. Neville Mccall DO Attending Provider Dr. Lalito Zamora MD Attending Provider Dr. Lalito Zamora MD Referring Provider Dr. Timmy Manzano MD Attending Provider Dr. Timmy Manzano MD Referring Provider Svitlana Becerril MD Primary Care Provider Svitlana Becerril MD Referring Provider Dr. Neville Mccall DO Attending Provider Dr. Velasquez Diop MD Attending Provider Stefany MALDONADO Dr. Neville Referring Provider Svitlana Becerril MD Attending Provider [phone] Jone ESPINOZA, Valenteon Primary Care Provider Jone ESPINOZA, Svitlana Referring Provider [phone] Stefany MALDONADO, Dr. Lozada Attending Provider Dr. Velasquez Diop MD Attending Provider [phone] Roof MOLDED GOODS OPERATOR-C, Andre Rothman Attending Provider Neville Mccall Attending Unavailable Jone, Chalon Primary Care Unavailable Jone, Chalon Referring Unavailable Borruso, Neville Attending Unavailable Jone, Chalon Primary Care Unavailable Jone, Chalon Referring Unavailable Velasquez iDop Attending Unavailable Jone, Chalon Primary Care Unavailable Borruso, Neville Attending Unavailable BorrusoNeville Referring Unavailable Jone, Chalon Primary Care Unavailable Borruso, Neville Attending Unavailable Jone, Chalon Referring Unavailable Jone, Chalon Primary Care Unavailable Oleghe, Efewongbe Primary Care Unavailable Oleghe, Efewongbe Referring Unavailable Lalito Zamora Attending Unavailable Marlene Salazar Attending Unava ilable Oleghe, Efewongbe Primary Care Unavailable Velasquez Diop Attending Unavailable Jone, Chalon Primary Care Unavailable Timmy Manzano Attending Unavailable Timmy Manzano Referring Unavailable Jone, Chalon Primary Care Unavailable Lalito Zamora Referring Unavailable Jone, Chalon Primary Care Unavailable Lalito Zamora Attending Unavailable Jone, Svitlana Attending Unavailable Jone, Chalon Primary Care Unavailable Jone, Chalon Referring Unavailable BorrusoNeville Attending Unavailable BorrusoNeville Referring Unavailable Jone, Chalon Primary Care Unavailable Jone, Chalon Primary Care Unavailable Jone, Chalon Consulting Unavailable Roof MOLDED GOODS OPERATOR, Andre Rothman Attending Unavailable Gudelia MOLDED GOODS OPERATOR, Andre Rothman Referring Unavailable Trerusilvana, Neville Attending Unavailable Trerusilvana, Neville Referring Unavailable Jone, Chalon Primary Care Unavailable Borruso, Neville Attending Unavailable Borruso, Neville Referring Unavailable Jone, Chalon Primary Care Unavailable Gianni Hernandez Attending Unavailabl e Oleghe, Efewongbe Primary Care Unavailable Jone, Chalon Primary Care Unavailable Jone, Valenteon Attending Unavailable Jone, Chalon Referring Unavailable Jone, Chalon Primary Care Unavailable Roof MOLDED GOODS OPERATOR, Andre H Attending Unavailable Svitlana Becerril Referring Unavailable Velasquez Diop Attending Unavailable Svitlana Becerril Primary Care Unavailable Neville Mccall Attending Unavailable Svitlana Becerril Primary Care Unavailable Svitlana Becerril Referring Unavailable Medications Current Medications Medication Drug Class(es) Dates Sig (Normalized) Sig (Original) acetaminophen 325 mg oral tablet (20 sources) Start: 11-21-2022 take 650 mg by mouth every four hours Acetaminophen Active 650 MG PO Q4H November 21, 2022 1:00am Start: 11-18-2022 take 2 tablets by mo [facility] every four hours as needed for pain Acetaminophen 325 mg tablet Active 650 mg PO Q4H as needed for Pain November 21, 2022 1:00am Start: 11-17-2022 End: 11-18-2022 take 650 mg by mouth every four hours as needed Comment on above: Take 650 mg by mouth every 4 hours as needed. allopurinol 100 mg oral tablet (4 sources) Xanthine Oxidase Inhibitor Start: take 2 tablets by mouth once daily Allopurinol 100 mg tablet Active 200 mg PO daily January 09, 2025 12:00am Start: 01-09-2025 take 1 tablet by david once daily Allopurinol 100 mg tablet Active 100 mg PO daily January 09, 2025 12:00am ALPRAZolam 0.25 mg oral tablet (7 sources) Benzodiazepine Start: 10-10-2023 take 1 tablet by mouth once daily as needed for anxiety Alprazolam (Xanax) 0.25 mg tablet Active 0.25 mg PO DAILY as needed for anxiety 5 0 October 10, 2023 1:00am Anxiety and depression Anxiety disorder, unspecified Depression, unspecified atorvastatin 80 mg oral tablet (20 sources) HMG-CoA Reductase Inhibitor Start: 04-21-2024 Atorvastatin 80 mg tablet Active 40 mg PO AT BEDTIME 90 3 April 21, 2024 3:19pm Start: 11-18-2022 End: 04-21-2024 take 1 tablet by mouth at bedtime Atorvastatin 80 mg tablet Discontinued 80 mg PO AT BEDTIME 90 3 February 13, 2023 9:26am January 03, 2024 3:56pm Start: 11-18-2022 Start: 11-14-2022 End: 02-04-2023 take 80 mg by mouth once daily at bedtime 80 mg, Oral, DAILY AT BEDTIME, First dose on Sun11/14/22 at 2100, Until Discontinued Start: 11-09-2022 End: 11-13-2022 take 80 mg by mouth once daily at dinner 80 mg, Oral, DAILY WITH DINNER, First dose on Sun11/09/22 at 1700, Until Discontinued cholecalciferol 0.01 mg oral capsule (7 sources) Vitamin D Start: 09-19-2023 take 1 capsule by mouth once daily Cholecalciferol (Vitamin D3) 10 mcg (400 unit) capsule Active 10 ug PO DAILY September 19, 2023 1:00am FLUoxetine 20 mg oral capsule (5 sources) Serotonin Reuptake Inhibitor Start: 10-31-2024 take 1 capsule by mouth once daily Fluoxetine 20 mg capsule Active 20 mg PO DAILY October 31, 2024 1:00am furosemide 40 mg oral tablet (20 sources) Loop Diuretic Start: 12-14-2022 End: 12-21-2022 take 1 tablet by mouth once daily furOSEmide 40 MG tablet Indications: Status post cardiac surgery , Pleural effusion on left Take 1 tablet by mouth daily for 7 days. 7 tablet 0 12/14/2022 12/21/2022 Active Start: 11-26-2022 Start: 11-21-2022 End: 12-06-2022 take 1 tablet by mouth once daily Furosemide 40 mg tablet Discontinued 40 mg PO .COMPLEX November 21, 2022 1:00am December 06, 2022 2:09pm 40 mg orally take 1 tab by mouth daily for 5 days; Start: 11-18-2022 End: 11-25-2022 Start: 11-17-2022 End: 11-17-2022 take 1 dose by mouth once 20 mg, Oral, ONCE, 1 dose, O n Sun11/17/22 at 1845 Start: 11-17-2022 End: 11-17-2022 take 20 mg by mouth twice daily before mealtime 20 mg, Oral, 2 TIMES DAILY BEFORE MEALS, First dose (after last modification) on Sun11/17/22 at 0745, Until Discontinued Start: 11-16-2022 End: 11-17-2022 take 40 mg by mouth twice daily before mealtime 40 mg, Oral, 2 TIMES DAILY BEFORE MEALS, First dose (after last modification) on Sun11/16/22 at 0745, Until Discontinued Start: 11-15-2022 End: 11-16-2022 take 20 mg by mouth twice daily before mealtime 20 mg, Oral, 2 TIMES DAILY BEFORE MEALS, First dose on Sun11/15/22 at 1245, Until Discontinued hydrocortisone acetate 25 mg rectal suppository (6 sources) Corticosteroid Start: 02-13-2012 take 25 mg rectal route every twelve hours as needed hydrocortisone (ANUSOL-HC) 25 mg RECTAL suppository 1 Suppository by RECTAL route twice daily as needed (hemorrhoids/rectal pain). 12 Suppository 0 02/13/2012 Active Comment on above: 1 Suppository by REC TRISTAN route twice daily as needed (hemorrhoids/rectal pain). [place] (Nk) (2 sources) Start: 11-08-2022 [place] (Nk) Active November 08, 2022 12:00am microencapsulated potassium chloride 20 meq extended release oral tablet (20 sources) Start: 12-14-2022 End: 12-21-2022 take 1 tablet by mouth once daily Potassium chloride 20 MEQ Tab CR tablet Indications: Status post cardiac surgery , Pleural effusion on left Take 1 tablet by mouth daily for 7 days. 7 tablet 0 12/14/2022 12/21/2022 Active Start: 11-26-2022 Start: 11-21-2022 End: 12-06-2022 take 1 tablet by mouth once daily Potassium Chloride 20 mEq tablet extended release Discontinued 20 meq PO DAILY November 21, 2022 1:00am December 06, 2022 2:09pm Start: 11-16-2022 End: 11-18-2022 20 mEq, Oral, 2 TIMES DAILY, First dose on Sun11/16/22 at 2030, Until Discontinued Start: 11-15-2022 End: 11-18-2022 Start: 11-13-2022 End: 11-15-2022 20 mEq, Intravenous, Adminis ter over 60 Minutes, ADMINISTER DIRECTED, Starting on Sun11/13/22 at 1945, Until Sun11/15/22 at 0131, Other, Hypokalemia IF Cr LESS than 2.0 mg/dL or urine output GREATER than 30 mL hour: 1. If Potassium range 4.1-4.4, Give 20 mEq Potassium Chloride. 2. If Potassium range 3.6-4.0, Give 40 mEq Potassium Chloride and recheck 8 hours after completion of infusion. 3. If Potassium range less than 3.6, Give 60 mEq Potassium Chloride and recheck after completion of infusion. If potassium and magnesium low, first replete Magnesium as indicated. Max rate 20mEq in 30 minutes. Extravasation Risk. CENTRAL LINE required. Telemetry required. ICU Start: 11-09-2022 End: 11-13-2022 take 60 mEq by mouth every eight hours 20-60 mEq, Oral, ADMINISTER DIRECTED, Starting on Mirlande 11/09/22 at 0021, Until 11/13/22 at 1945, See admin instructions 1. If Creatinine less than 2.0 mg/dL and/or urine output greater than 30 mL/hour. 2. If Potassium is 4.1-4.4, give 20 mEq Potassium Chloride oral. 3. If Potassium is 3.6-4.0, give 40 mEq Potassium Chloride oral. 4. If Potassium less than 3.6, give 60 mEq Potassium Chloride orally, recheck in 8 hours. 5. If Potassium low, replace Magnesium first if indicated. predniSONE 10 mg oral tablet (3 sources) Start: 07-15-2024 predniSONE (DE LTASONE) 10 mg tablet Take 4 tabs daily for 3 days, then 2 tabs daily for 3 days, then 1 tab daily for 3 days with food. 21 tablet 07/15/2024 Active Start: 05-01-2023 End: 05-10-2023 predniSONE (DELTASONE) 10 mg tablet Indications: Acute right ankle pain Take 4 tabs daily for 3 days, then 2 tabs daily for 3 days, then 1 tab daily for 3 days with food. 21 tablet 0 05/01/2023 05/10/2023 Active Comment on above: Take 4 tabs daily fo r 3 days, then 2 tabs daily for 3 days, then 1 tab daily for 3 days with food. psyllium 520 mg oral capsule (6 sources) Start: 02-13-2012 psyllium Husk 0.52 g ORAL capsule Take 1 capsule by mouth once daily. 30 capsule 2 02/13/2012 Active Comment on above: Take 1 capsule by mo [facility] once daily. (1 source) Start: 11-19-2022 Completed/Discontinued Medications Medication Drug Class(es) Dates Sig (Normalized) Sig (Original) alendronic acid 70 mg oral tablet (5 sources) Bisphosphonate Start: 10-31-2024 End: 01-09-2025 take 1 tablet by mouth every week Alendronate 70 mg tablet Discontinued 70 mg PO EVERY WEEK 6 0 October 31, 2024 1:00am January 09, 2025 9:07am amiodarone hydrochloride 200 mg oral tablet (15 sources) Antiarrhythmic Start: 11-15-2022 End: 12-06-2022 take 1 tablet by mouth once daily Amiodarone 200 mg tablet Discontinued 200 mg PO .COMPLEX November 21, 2022 1:00am December 06, 2022 2:08pm 200 mg orally 1 tab PO Daily for 4 days; Start: 11-10-2022 400 mg, Oral, 3 TIMES DAILY, 9 doses, First dose on Sun11/10/22 at 0900, Last dose on Sun11/12/22 at 2100 aspirin 81 mg chewable tablet (20 sources) Platelet Aggregation Inhibitor, Nonsteroidal Anti-inflammatory Drug Start: 11-21-2022 End: 05-14-2025 take 1 tablet by mouth once daily Aspirin (Alyse Chewable Aspirin) 81 mg tablet,chewable Active 81 mg PO DAILY May 14, 2025 10:22am On hold for surgery Start: 11-14-2022 End: 11-14-2022 take 1 dose by mouth once 325 mg, Oral, ONCE, 1 dose, On Sun11/14/22 at 0115, Post-op/Post-Proc Start: 11-09-2022 End: 11-18-2022 take 1 tablet by mouth once daily aspirin 81 mg chewable tablet Take 1 tablet by mouth once daily. 11/18/2022 Active Comment on above: Take [address] [facility] once daily. azithromycin 250 mg oral tablet (9 sources) Macrolide Antimicrobial Start: 023 End: 023 take 2-5 tablets by mouth once daily Azithromycin 250 mg tablet Discontinued 0 PO .COMPLEX 6 0 February 23, 2023 12:00am March 02, 2023 2:54pm take 500 mg today (day 1), then 250 mg for 4 days (days 2-5) PO bisacodyl 10 mg rectal suppository (1 source) Stimulant Laxative Start: End: take 10 mg rectal route once daily 10 mg, Rectal, DAILY, First dose on Sun11/15/22 at 0900, Until Discontinued Start POD#2, Hold for loose stools or positive bowel movement in the last 48 hours. Post-op/Post-Proc castor oil 0.788 mg/mg / dominican balsam 0.087 mg/mg topical ointment (1 source) Standardized Chemical Allergen Start: End: 1 Application, Topical, 3 TIMES DAILY, First dose on Sun11/13/22 at 2100, Until Discontinued Apply to bony prominences (like back, heels, elbows, sacrum, etc.) to promote circulation. ICU ceFAZolin 2000 mg injection (1 source) Cephalosporin Antibacterial Start: End: take 2 g intravenously every eight hours 2 g, Intravenous, Administer over 30 Minutes, EVERY 8 HOURS NON-STANDARD, 2 doses, First dose on Sun11/14/22 at 0130, Last dose on Sun11/14/22 at 0930 2 doses for 24 hour duration of antibiotic. Pharmacist to adjust. Post-op/Post-Proc celecoxib 100 mg oral capsule (5 sources) Nonsteroidal Anti-inflammatory Drug Start: End: take 1 capsule by mouth twice daily Celecoxib (Celebrex) 100 mg capsule Discontinued 100 mg PO TWICE A DAY 60 0 November 03, 2024 1:00am January 09, 2025 9:07am chlorhexidine gluconate 1.2 mg/ml mouthwash (2 sources) Start: End: take 15 mL by mouth every twelve hours 15 mL, Oral, EVERY 12 HOURS, First dose on Sun11/13/22 at 2000, Until Discontinued, Intubation Start: 11-13-2022 End: 11-13-2022 15 mL, Oral, DIGITAL DESIGN ENGINEER TO PROC ALEXANDER, 1 dose, Starting on Sun11/13/22 at 0000, Until Sun11/13/22 at 1056, Other, preoperative antibacterial agent Administer in PACU. clopidogrel 75 mg oral tablet (20 sources) P2Y12 Platelet Inhibitor Start: 11-15-2022 End: 10-30-2023 take 1 tablet by mouth once daily Clopidogrel (Plavix) 75 mg tablet Discontinued 75 mg PO DAILY 90 3 February 13, 2023 9:26am October 30, 2023 12:55pm Drug or medicament (substance) (1 source) Start: 11-13-2022 End: 11-13-2022 1 Application, Nasal, DIGITAL DESIGN ENGINEER TO PROCEDURE, 1 dose, Starting on Sun11/13/22 at 0000, Until Sun11/13/22 at 1057, Other, preoperative antibiotic prophylaxis To be administered 60 minutes prior to procedure EPINEPHrine (ADRENALIN) 5 mg in Sodium chloride 0.9% 250 mL IV infusion (1 source) Start: 11-13-2022 End: 11-14-2022 0-0.1 mcg/kg/min 89.8 kg Dosing weight (0-26.94 mL/hr, rounded to 0-26.9 mL/hr), Intravenous, CONTINUOUS, Starting on Sun11/13/22 at 1930, Until Sun11/14/22 at 0734 Initiate infusion at 0.02 mcg/kg/min. Titrate by 0.01 mcg/kg/min every 1 minute to maintain MAP between 65 and 75 mmHg . Titrat e to the lowest rate to achieve target goal. Notify prescriber for inability to achieve goals at maximum dose of ordered range or change in clinical condition. Ext ravasation risk. Central line required. Recovery to Continue gabapentin 300 mg oral capsule (2 sources) Anti-epileptic Agent Start: 11-15-2022 End: 11-18-2022 take 300 mg by mouth three times daily 300 mg, Oral, 3 TIMES DAILY, First dose on Sun11/15/22 at 1400, Until Discontinued Start: 11-15-2022 End: 11-15-2022 take 1 dose by mouth once 300 mg, Oral, ONCE, 1 dose, On Sun11/15/22 at 0515 250 ml heparin sodium, porcine 100 unt/ml injection (1 source) Unfractionated Heparin, Anti-coagulant Start: 11-09-2022 End: 11-13-2022 INTERMEDIATE/CARDIAC SLIDING SCALE FOR PATIENTS EQUAL TO OR GREATER THAN 65KG: Initiate dose at 12 units/kg/hr. If PTT is less than 47, increase dose by 3 units/kg/hr. If PTT is 47-60, increase dose by 2 units/kg/hr. If PTT is 61-71, increase dose by 1 unit/kg/hr. If PTT is 72-95, no change. If PTT is 96-111, decrease dose by 1 unit/kg/hr. If PTT is 112-126, hold infusion for 60 minutes and decrease dose by 2 units/kg/hr. If PTT greater than 126, hold infusion and check PTT every 2 hours. Once PTT is in goal range or below, restart infusion at 3 units/kg/hr lower than the most recent dose. Note: Round PTT to nearest whole number (e.g. 70.5=71, 70.4=70). Indications: Acute Coronary Syndrome 1 ml HYDROmorphone hydrochloride 1 mg/ml cartridge (1 source) Opioid Agonist Start: 11-13-2022 End: 11-14-2022 take 0.5 mg intravenously every four hours as needed 0.5 mg, Intravenous, EVERY 4 HOURS NEEDED, Starting on Sun11/13/22 at 1945, Until Sun11/14/22 at 0744, Severe Pain PRN severe pain (DVPRS) or CPOT >2. If PO/NG not available, use IV hydromorphone as first-line agent. If PO/NG not effective, use IV hydromorphone as second-line agent. Post-op/Post-Proc indomethacin 50 mg oral capsule (4 sources) Nonsteroidal Anti-inflammatory Drug Start: 01-09-2025 End: 2025 take 1 capsule by mouth three times daily at mealtime Indomethacin 50 mg capsule Discontinued 50 mg PO THREE TIMES A DAY 60 0 January 09, 2025 12:00am 2025 11:21am administer with food or milk, do not take in conjunction with other NSAID. Tylenol is okay 100 ml insulin, regular, human 1 unt/ml injection (1 source) Insulin Start: 11-13-2022 End: 11-15-2022 0-25 Units/hr (0-25 mL/hr), Intravenous, CONTINUOUS, Starting on Sun11/13/22 at 2000, Until Sun11/15/22 at 0705 TYPE 2 DIABETES OR OTHER HYPERGLYCEMIA standard rate. Initiate at 2 units/hr. Measure patient's glucose q1hr. Adjust the insulin infusion rate as directed in Table 1. Post-op/Post-Proc lidocaine 0.04 mg/mg medicated patch (1 source) Antiarrhythmic, Amide Local Anesthetic Start: 11-14-2022 End: 11-18-2022 apply 2 doses transdermal route every twenty-four hours 2 patch, Transdermal, Administer over 12 Hours, EVERY 24 HOURS, First dose on Sun11/14/22 at 0830, Until Discontinued Apply to median sternotomy incision bilaterally magnesium chloride 0.45370 meq/ml / potassium chloride 0.49654 meq/ml / sodium acetate 0.027 meq/ml / sodium chloride 0.0899 meq/ml / sodium gluconate 5.02 mg/ml injectable solution (2 sources) Start: 11-14-2022 End: 11-14-2022 Intravenous, at 75 mL/hr, CONTINUOUS, Starting on Sun11/14/22 at 1515, Until Sun11/14/22 at 2314 Start: 11-09-2022 End: 11-09-2022 Intravenous, at 50 mL/hr, CO NTINUOUS, Starting on Sun11/09/22 at 0230, Until Sun11/09/22 at 0824 magnesium oxide 400 mg oral tablet (15 sources) Start: 11-21-2022 End: 12-06-2022 take 1 tablet by mouth twice daily Magnesium Oxide 400 mg magnesium tablet Discontinued 400 mg PO TWICE A DAY November 21, 2022 1:00am December 06, 2022 2:09pm Start: 11-18-2022 End: 11-18-2022 Start: 11-16-2022 End: 11-18-2022 take 400 mg by mouth twice daily 400 mg, Oral, 2 TIMES DAILY, First dose on Sun11/16/22 at 2030, Until Discontinued 50 ml magnesium sulfate 80 mg/ml injection (4 sources) Start: 11-13-2022 End: 11-14-2022 take 4 g intravenously every twelve hours 4 g, Intravenous, Administer over 4 Hours, EVERY 12 HOURS NON-STANDARD, 2 doses, First dose on Sun11/13/22 at 2000, Last dose on Sun11/14/22 at 0800 Hold if Magnesium level greater than 3. Post-op/Post-Proc Start: 11-13-2022 End: 11-13-2022 1 dose, Starting on 11/13 at 1904, Until Sun11/13/22 at 1942 Created by cabinet override Start: 11-09-2022 End: 11-18-2022 4 g, Intravenous, Administer over 4 Hours, ADMINISTER DIRECTED, Starting on Sun11/13/22 at 1945, Until Sun11/18/22 at 1234, Other, Magnesium replacement therapy: 1. If Magnesium 1.7-2.4, Give 4 g Magnesium Sulfate IVPB. 2. If Magnesium less than or equal to 1.6, Give 8g Magnesium Sulfate IVPB. 3. Recheck Magnesium level 4 hours after completion of infusion. Post-op/Post-Proc melatonin 10 mg oral capsule (20 sources) Start: 03-02-2023 End: 08-30-2023 take 1 capsule by mouth at bedtime as needed for sleep Melatonin 10 mg capsule Discontinued 10 mg PO BEDTIME as needed for Sleep March 02, 2023 12:00am August 30, 2023 4:27pm Start: 11-21-2022 End: 02-19-2023 take 6 mg by mouth at bedtime Melatonin Discontinued 6 MG PO BEDTIME November 21, 2022 1:00am February 19, 2023 8:22am Start: 11-18-2022 End: 02-19-2023 take 2 tablets by mouth at bedtime as needed Melatonin 3 mg tablet Discontinued 6 mg PO BEDTIME as needed November 21, 2022 1:00am February 19, 2023 8:22am Start: 11-15-2022 End: 11-18-2022 Comment on above: Take 6 mg by mouth. metoprolol tartrate 25 mg oral tablet (20 sources) beta-Adrenergic Braydon Start: 02-13-2023 metoprolol tartrate, short acting, (LOPRESSOR) 25 mg tablet 02/13/2023 Active Start: 12-08-2022 End: 04-07-2025 Metoprolol Tartrate 25 mg ta blet Discontinued 12.5 mg PO TWICE A DAY February 13, 2023 9:26am January 03, 2024 3:56pm Start: 12-08-2022 End: 01-03-2024 take 12.5 mg by mouth twice daily Metoprolol Tartrate Active 12.5 MG PO TWICE A DAY January 03, 2024 3:56pm Start: 11-21-2022 End: 12-08-2022 take 1 tablet by mouth twice daily Metoprolol Tartrate 25 mg tablet Discontinued 25 mg PO TWICE A DAY November 21, 2022 1:00am December 08, 2022 11:31am Start: 11-18-2022 take 0.5 tablet by m outh every twelve hours Metoprolol 25 MG tab regular release Take 0.5 tablets by mouth every 12 hours. 60 tablet 1 11/18/2022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 encounter BPH (benign prostatic hyperplasia) GI bleed Bilateral shoulder pain Essential hypertension 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 Normal [facility] MRSA/SAID NASAL SCREENon MRSA+SAID SCRN Reason for Exam: Surgery MRSA MRSA Negative S. AUREUS S. aureus Negative Normal [facility] Comment on above: Performed By: #### L 300.4310, L500.2500, L501.1400, L100.0100, BTSPAT, L3400.0100, L300.3900, L501.9985, M100.651 ####[facility] [address] [place], [address] PSA,Total - Annual Screenon 05-15-2025 PSA,TOT SCREEN 0.43 ng/mL Normal 0.02-4.00 [facility] Comment on above: Order Comment: Order Info: 3083-10 - URIC Order Info: 2856-10 - PSA Result Comment: This test was performed using the [employer] tPSA method. Measured values of a patient??sample can vary depending on the testing procedure used. PSA values determined on patient samples by different testing procedures cannot be used interchangeably. If there is a change in PSA assays while monitoring therapy, sequential testing should be performed to confirm baseline values. Performed By: #### L 501.9910 #### [facility] [address] [place], [address] Protein, Totalon 05-15-2025 Albumin/Globulin [Mass ratio] 1.5 {ratio} Normal 0.9-2.4 [facility] Comment on above: Order Comment: Order Info: 3083-10 - URIC Order Info: 2856-10 - PSA Performed By: #### L 501.4600, L501.4100, L001.0705, L501.4305, L501.4405 #### [facility] [address] [place], [address] Globulin (S) [Mass/Vol] 3.0 g/dL Normal 2.2-4.2 [facility] Comment on above: Order Comment: Order Info: 3083-10 - URIC Order Info: 2856-10 - PSA Performed By: #### L 501.4600, L501.4100, L001.0705, L501.4305, L501.4405 #### [facility] [address] [place], [address] T PROT 7.5 g/dL Normal 5.9-8.4 [facility] Comment on above: Order Comment: Order Info: 3083-10 - URIC Order Info: 2856-10 - PSA Performed By: #### L 501.4600, L501.4100, L001.0705, L501.4305, L501.4405 #### [facility] [address] [place], [address] Total Bilirubinon 05-15-2025 Bilirubin [Mass/Vol] 0.30 mg/dL Normal 0.00-1.30 [facility] Comment on above: Order Comment: Order Info: 3083-10 - URIC Order Info: 2856-10 - PSA Performed By: #### L 501.4600, L501.4100, L001.0705, L501.4305, L501.4405 #### [facility] [address] [place], [address] Basic Metabolic Profile (BMP )on 05-14-2025 BUN/CRE 14.8 RATIO Normal 10-20 [facility] Comment on above: Order Comment: SEND URIC, BMP TO Performed By: #### L 300.4310, L500.2500, L501.1400, L100.0100, BTSPAT, L3400.0100, L300.3900, L501.9985, M100.651 ####[facility] [address] [place], [address] Calcium [Mass/Vol] 9.4 mg/dL Normal 7.6-11.0 [facility] Comment on above: Order Comment: SEND URIC, BMP TO Performed By: #### L 300.4310, L500.2500, L501.1400, L100.0100, BTSPAT, L3400.0100, L300.3900, L501.9985, M100.651 ####[facility] [address] [place], [address] Chloride [Moles/Vol] 105 mmol/L Normal 98-108 [facility] Comment on above: Order Comment: SEND URIC, BMP TO Performed By: #### L 300.4310, L500.2500, L501.1400, L100.0100, BTSPAT, L3400.0100, L300.3900, L501.9985, M100.651 ####[facility] [address] [place], [address] CO2 [Moles/Vol] 20.6 mmol/L Low 21.0-32.0 [facility] Comment on above: Order Comment: SEND URIC, BMP TO Performed By: #### L 300.4310, L500.2500, L501.1400, L100.0100, BTSPAT, L3400.0100, L300.3900, L501.9985, M100.651 ####[facility] [address] [place], [address] Creatinine [Mass/Vol] 0.99 mg/dL Normal 0.70-1.20 [facility] Comment on above: Order Comment: SEND URIC, BMP TO Performed By: #### L 300.4310, L500.2500, L501.1400, L100.0100, BTSPAT, L3400.0100, L300.3900, L501.9985, M100.651 ####[facility] [address] [place], [address] GAP 15 Normal 5-15 [facility] Comment on above: Order Comment: SEND URIC, BMP TO Performed By: #### L 300.4310, L500.2500, L501.1400, L100.0100, BTSPAT, L3400.0100, L300.3900, L501.9985, M100.651 ####[facility] [address] [place], [address] GFR/1.73 sq M.predicted among non-blacks MDRD (S/P/Bld) [Vol rate/Area] 91 mL/min/{1.73_m2} Normal >60 [facility] Comment on above: Order Comment: SEND URIC, BMP TO Result Comment: mL/m in/1.73m2 CKD-EPI Creatinine Equation (2020) Performed By: #### L 300.4310, L500.2500, L501.1400, L100.0100, BTSPAT, L3400.0100, L300.3900, L501.9985, M100.651 ####[facility] [address] [place], [address] Glucose [Mass/Vol] 123 mg/dL High 70-99 [facility] Comment on above: Order Comment: SEND URIC, BMP TO Performed By: #### L 300.4310, L500.2500, L501.1400, L100.0100, BTSPAT, L3400.0100, L300.3900, L501.9985, M100.651 ####[facility] [address] [place], [address] Potassium [Moles/Vol] 4.0 mmol/L Normal 3.3-5.1 [facility] Comment on above: Order Comment: SEND URIC, BMP TO Performed By: #### L 300.4310, L500.2500, L501.1400, L100.0100, BTSPAT, L3400.0100, L300.3900, L501.9985, M100.651 ####[facility] [address] [place], [address] Sodium [Moles/Vol] 141 mmol/L Normal 133-145 [facility] Comment on above: Order Comment: SEND URIC, BMP TO Performed By: #### L 300.4310, L500.2500, L501.1400, L100.0100, BTSPAT, L3400.0100, L300.3900, L501.9985, M100.651 ####[facility] [address] [place], [place], [phone] Urea nitrogen [Mass/Vol] 15 mg/dL Normal 4-19 [facility] Comment on above: Order Comment: SEND URIC, BMP TO Performed By: #### L 300.4310, L500.2500, L501.1400, L100.0100, BTSPAT, L3400.0100, L300.3900, L501.9985, M100.651 ####[facility] [address] [place], [place], [id number] CBC W/Diff, Automatedon 07-3 Absolute Lymph 2.92 X10 3/uL Normal 0.83-4.51 [facility] Comment on above: Performed By: #### L 300.4310, L500.2500, L501.1400, L100.0100, BTSPAT, L3400.0100, L300.3900, L501.9985, M100.651 ####[facility] [address] [place], [place], [phone] Performed By: #### L 100.0100 ####[facility] [address] [place], [place], [id number] Absolute Neut 3.5 X10 3/uL Normal 2.0-7.7 [facility] Comment on above: Performed By: #### L 300.4310, L500.2500, L501.1400, L100.0100, BTSPAT, L3400.0100, L300.3900, L501.9985, M100.651 ####[facility] [address] [place], [place], [id number] Performed By: #### L 100.0100 ####[facility] [address] [place], [address] Basophils/100 WBC (Bld) 1.0 % Normal 0-1 [facility] Comment on above: Performed By: #### L 300.4310, L500.2500, L501.1400, L100.0100, BTSPAT, L3400.0100, L300.3900, L501.9985, M100.651 ####[facility] [address] [place], [address] Performed By: #### L 100.0100 ####[facility] [address] [place], [address] Eosinophils/100 WBC (Bld) 2.5 % Normal 0-5 [facility] Comment on above: Performed By: #### L 300.4310, L500.2500, L501.1400, L100.0100, BTSPAT, L3400.0100, L300.3900, L501.9985, M100.651 ####[facility] [address] [place], [address] Performed By: #### L 100.0100 ####[facility] [address] [place], [address] Erythrocyte distribution width (RBC) [Ratio] 14.3 % Normal 11.6-14.6 [facility] Comment on above: Performed By: #### L 300.4310, L500.2500, L501.1400, L100.0100, BTSPAT, L3400.0100, L300.3900, L501.9985, M100.651 ####[facility] [address] [place], [address] Performed By: #### L 100.0100 ####[facility] [address] [place], [address] Hematocrit (Bld) [Volume fraction] 41.0 % Normal 40-54 [facility] Comment on above: Performed By: #### L 300.4310, L500.2500, L501.1400, L100.0100, BTSPAT, L3400.0100, L300.3900, L501.9985, M100.651 ####[facility] [address] [place], [address] Performed By: #### L 100.0100 ####[facility] [address] [place], [address] Hemoglobin (Bld) [Mass/Vol] 13.6 g/dL Normal 13.0-16.5 [facility] Comment on above: Performed By: #### L 300.4310, L500.2500, L501.1400, L100.0100, BTSPAT, L3400.0100, L300.3900, L501.9985, M100.651 ####[facility] [address] [place], [address] Performed By: #### L 100.0100 ####[facility] [address] [place], [address] IG% 0.500 Normal 0.0-0.9 [facility] Comment on above: Result Comment: IG% - Immature Granulocytes (promyelocytes, myelocytes and metamyelocytes) > 1% indicates that a LEFT SHIFT is Present. Performed By: #### L 300.4310, L500.2500, L501.1400, L100.0100, BTSPAT, L3400.0100, L300.3900, L501.9985, M100.651 ####[facility] [address] [place], [address] Performed By: #### L 100.0100 ####[facility] [address] [place], [address] Lymphocytes/100 WBC (Bld) 40.1 % Normal 19-41 [facility] Comment on above: Performed By: #### L 300.4310, L500.2500, L501.1400, L100.0100, BTSPAT, L3400.0100, L300.3900, L501.9985, M100.651 ####[facility] [address] [place], [address] Performed By: #### L 100.0100 ####[facility] [address] [place], [address] MCH (RBC) [Entitic mass] 29.1 pg Normal 27.0-32.0 [facility] Comment on above: Performed By: #### L 300.4310, L500.2500, L501.1400, L100.0100, BTSPAT, L3400.0100, L300.3900, L501.9985, M100.651 ####[facility] [address] [place], [address] Performed By: #### L 100.0100 ####[facility] [address] [place], [address] MCHC (RBC) [Mass/Vol] 33.2 g/dL Normal 32-36 [facility] Comment on above: Performed By: #### L 300.4310, L500.2500, L501.1400, L100.0100, BTSPAT, L3400.0100, L300.3900, L501.9985, M100.651 ####[facility] [address] [place], [address] Performed By: #### L 100.0100 ####[facility] [address] [place], [address] MCV (RBC) [Entitic vol] 87.8 fL Normal 80-94 [facility] Comment on above: Performed By: #### L 300.4310, L500.2500, L501.1400, L100.0100, BTSPAT, L3400.0100, L300.3900, L501.9985, M100.651 ####[facility] [address] [place], [address] Performed By: #### L 100.0100 ####[facility] [address] [place], [address] Monocytes/100 WBC (Bld) 7.8 % Normal 0-10 [facility] Comment on above: Performed By: #### L 300.4310, L500.2500, L501.1400, L100.0100, BTSPAT, L3400.0100, L300.3900, L501.9985, M100.651 ####[facility] [address] [place], [address] Performed By: #### L 100.0100 ####[facility] [address] [place], [address] Neutrophils/100 WBC (Bld) 48.1 % Normal 47-70 [facility] Comment on above: Performed By: #### L 300.4310, L500.2500, L501.1400, L100.0100, BTSPAT, L3400.0100, L300.3900, L501.9985, M100.651 ####[facility] [address] [place], [address] Performed By: #### L 100.0100 ####[facility] [address] [place], [address] Nucleated RBC (Bld) [#/Vol] 0 10*3/uL Normal 0-5 [facility] Comment on above: Performed By: #### L 300.4310, L500.2500, L501.1400, L100.0100, BTSPAT, L3400.0100, L300.3900, L501.9985, M100.651 ####[facility] [address] [place], [address] Performed By: #### L 100.0100 ####[facility] [address] [place], [address] Platelet mean volume (Bld) [Entitic vol] 10.3 fL Normal 6.2-12.0 [facility] Comment on above: Performed By: #### L 300.4310, L500.2500, L501.1400, L100.0100, BTSPAT, L3400.0100, L300.3900, L501.9985, M100.651 ####[facility] [address] [place], [address] Performed By: #### L 100.0100 ####[facility] [address] [place], [address] Platelets (Bld) [#/Vol] 293 10*3/uL Normal 150-450 [facility] Comment on above: Performed By: #### L 300.4310, L500.2500, L501.1400, L100.0100, BTSPAT, L3400.0100, L300.3900, L501.9985, M100.651 ####[facility] [address] [place], [address] Performed By: #### L 100.0100 ####[facility] [address] [place], [address] RBC (Bld) [#/Vol] 4.67 10*6/uL Normal 4.6-6.2 [facility] Comment on above: Performed By: #### L 300.4310, L500.2500, L501.1400, L100.0100, BTSPAT, L3400.0100, L300.3900, L501.9985, M100.651 ####[facility] [address] [place], [address] Performed By: #### L 100.0100 ####[facility] [address] [place], [address] RDW SD 45.4 fl High 35.1-43.9 [facility] Comment on above: Performed By: #### L 300.4310, L500.2500, L501.1400, L100.0100, BTSPAT, L3400.0100, L300.3900, L501.9985, M100.651 ####[facility] [address] [place], [address] Performed By: #### L 100.0100 ####[facility] [address] [place], [address] WBC (Bld) [#/Vol] 7.3 10*3/uL Normal 4.4-11.0 [facility] Comment on above: Performed By: #### L 300.4310, L500.2500, L501.1400, L100.0100, BTSPAT, L3400.0100, L300.3900, L501.9985, M100.651 ####[facility] [address] [place], [address] Performed By: #### L 100.0100 ####[facility] [address] [place], [address] Cardiology Visit Reporton Cardiology Visit Report [facility] [address] [place], [place] [address] OFFICE VISIT Date of Service: 05/14/25 MR#: [id number] Acct: [id number] Name: LAURA STEPHENS Rep #: [id number] : 1970 Provider: ISABELLE rodriguez Age/Sex: 55/M [place] [facility] [place]: Signed HPI HPI History of Present Illness Details: Patient is a 55-year-old white male comes in for cardiovascular monitoring. Patient underwent coronary bypass graft surgery October 2022 receiving a SNOWDEN to the LAD and a vein graft to the OM1 branch of the circumflex at [facility]. The patient's had myalgias on statin which were required to be Deak decreased he also has a history of hyperglycemia and his sugars have been under a little better control by his report. He also has a history of hypertension his blood pressure is well- controlled in the office today. He denies chest, arm, jaw, or neck discomfort. He denies palpitations. He acknowledges bilateral lower extremity edema that he attributes to gout history. He acknowledges occasional shortness of breath with activity. He states this is chronic and he can go up at least two flights of stairs without symptoms. He denies shortness of breath at rest, cough, orthopnea, or PND. He acknowledges occasional lightheadedness when standing too quickly. He denies dizziness, near-syncope, or syncope. He denies weakness. He acknowledges fatigue. 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 Is patient in pain?: No Allergies No Known Allergies Allergy (Verified 05/14/25 10:21) Medications ???Medication ???Instructions ???Recorded ???Confirmed ???Type acetaminophen 325 mg tablet 650 mg PO Q4H PRN Pain 11/21/22 History cholecalciferol (vitamin D3) 10 10 mcg PO DAILY 09/19/23 05/14/25 History mcg (400 unit) capsule alprazolam 0.25 mg tablet (Xanax) 0.25 mg PO DAILY PRN anxiety #5 1 12/11/22 05/14/25 Rx tabs atorvastatin 80 mg tablet 40 mg (1/2 x 80 mg) PO QHS #90 tab s 04/21/24 05/14/25 Rx fluoxetine 20 mg capsule 20 mg PO DAILY 10/31/24 05/14/25 H istory allopurinol 100 mg tablet 200 mg PO QDAY 01/09/25 05/14/25 H istory metoprolol tartrate 25 mg tablet 12.5 mg (1/2 x 25 mg) PO BID #90 0 04/07/25 05/14/25 Rx tabs aspirin 81 mg chewable tablet 81 mg PO DAILY 05/14/25 05/14/25 H istory (Alyse Chewable Low Dose Aspirin) Ejection fraction %: 55 Have you fallen in the past year?: No PFSH Medical History Loss of hearing Depression Anxiety Alcohol use Arthritis Restless legs Back pain Gastric reflux Former smoker Shortness of breath on exertion Leg cramps History of pain when walking History of edema History of Holter monitoring History of stress test Gout Wears glasses High cholesterol History of heart attack History of echocardiogram Cardiology follow-up encounter BPH (benign prostatic hyperplasia) GI bleed Bilateral shoulder pain Essential hypertension 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 Multi-vessel coronary artery stenosis (11/08/22) 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 Surgical History Hx of colonoscopy History of cardiac catheterization History of coronary artery bypass surgery ( 11/13/22) Family History Grandmother Breast cancer Father Prostate cancer Skin cancer CAD (coronary artery disease) Mother Hypertension High cholesterol Grandfather CAD (coronary artery disease) Social History current occupational status: employed 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 Smoking Status: Current every day smoker tobacco type: cigarettes and e-cigarettes Electronic Cigarette Use: with nicotine alcohol intake: current alcohol intake frequency: 3 or more drinks per day Alcohol type: beer substance use type: does not use what type of physical activity do you participate in: none ROS Const Const: Positive for fatigue; Negative for weakness Eyes Eyes: Negative for change in vision ENT ENT: Negative for dizziness or balance problems Cardio Chest Pain: No Palpitations: No Edema: Bilateral (Relates to gout) Muscle aches with walking: None Resp Respiratory: Positive for SOB with activity (Occasionally); Negative for SOB at rest or SOB orthopnea SOB lying down GI GI: Negative nausea or heartburn : Negative for hematuria or frequent nighttime urination/ nocturia Musc Musc: Negative for ba (more content not included)... Normal [facility] Hemoglobin A1con 05-14-2025 HbA1c (Bld) [Mass fraction] 6.4 % High <=5.6 [facility] Comment on above: Result Comment: Norm al < 5.7 % Prediabetic 5.7 - 6.4 % Diabetic >or= 6.5 % Please note range changes. Performed By: #### L 300.4310, L500.2500, L501.1400, L100.0100, BTSPAT, L3400.0100, L300.3900, L501.9985, M100.651 ####[facility] [address] [place], [place], [id number] Magnesiumon 05-14-2025 Magnesium [Mass/Vol] 2.0 mg/dL Normal 1.5-2.2 [facility] Comment on above: Performed By: #### L 501.5200 #### [facility] [address] [place], [place], [id number] Partial Thromboplast Timeon 05-14-2025 aPTT Coag (Bld) [Time] 28.3 s Normal 24.1-36.[address] [facility] Comment on above: Performed By: #### L 300.4310, L500.2500, L501.1400, L100.0100, BTSPAT, L3400.0100, L300.3900, L501.9985, M100.651 ####[facility] [address] [place], [address] Prothrombin Time w/INRon INR Coag (PPP) [Relative time] 1.1 {INR} Normal [facility] Comment on above: Performed By: #### L 300.4310, L500.2500, L501.1400, L100.0100, BTSPAT, L3400.0100, L300.3900, L501.9985, M100.651 ####[facility] [address] [place], [address] PT Coag (PPP) [Time] 13.9 s Normal 11.7-14.9 [facility] Comment on above: Performed By: #### L 300.4310, L500.2500, L501.1400, L100.0100, BTSPAT, L3400.0100, L300.3900, L501.9985, M100.651 ####[facility] [address] [place], [place], [phone] Type AND Screen - PAT ONLYon 05-14-2025 Ab SCREEN GEL Negative Normal [facility] Comment on above: Order Comment: SEND MARY MEDINA TO urgery Date: 05/19/25Reason for Laboratory Test [id number] THR Performed By: #### L 300.4310, L500.2500, L501.1400, L100.0100, BTSPAT, L3400.0100, L300.3900, L501.9985, M100.651 ####[facility] [address] [place], [address] Uric Acidon 05-14-2025 URIC 6.9 mg/dL Normal 3.5-7.2 [facility] Comment on above: Order Comment: SEND URIC BMP TO Result Comment: The drugs N-Acetylcysteine and Metamizole may falsely depress this assay. Performed By: #### L 300.4310, L500.2500, L501.1400, L100.0100, BTSPAT, L3400.0100, L300.3900, L501.9985, M100.651 ####[facility] [address] [place], [place], [id number] Extremity Lower without Cont raon 05-13-2025 Extremity Lower without Contra [facility] [address] [place], [place] [phone] Extremity Lower without Contra MR#: [id number] Acct: [id number] Name: LAURA STEPHENS Rep #: [id number] : 1970 M 55 From: Pete Mas MD PCP: Dr. Svitlana Becerril MD Status: REG CLI Study: Extremity Lower without Contra Date of Exam: 0 05/13/25 Exam# [id number] Ordering Dr: Neville Mccall DO PROCEDURE: EXTREMITY LOWER WITHOUT CONTRA 05/13/2025 REASON FOR EXAM: TEMPLATING FOR RIGHT JENNIE TECHNIQUE: EXTREMITY LOWER WITHOUT CONTRA Coronal and Sagittal reconstruction series were provided. CONTRAST: None One or more dose reduction techniques were used (e.g., Automated exposure control, adjustment of the mA and/or kV according to patient size, use of iterative reconstruction technique). 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 There is no dislocation. Adjacent muscular structures appear intact. Pelvic bones appear intact. Atherosclerotic calcifications are visible. There is no pathologic adenopathy. 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 Reading Location: [facility] CC: Dr. Svitlana Becerril MD; Dr. 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 Neville Mccall DO Status: [place] E SDC Ordering Dr: Neville Mccall DO Date: 05/12/25 Location: [facility] Sex: M C Admitted: Test Reason : PREOP Blood Pressure : */* mmHG Vent. Rate : 81 BPM Atrial Rate : 81 BPM P-R Int : 150 ms QRS Dur : 88 ms QT Int : 416 ms P-R-T Axes : 66 61 69 degrees QTcB Int : 483 ms Normal sinus rhythm Possible Left atrial enlargement Nonspecific ST and T wave abnormality Prolonged QT Abnormal ECG Confirmed by ANDERS ESPINOZA, VELASQUEZ ([id number]), assistant production editor CELSACHETAN LEUNG ([id number]) on 05/13/2025 8:39:11 AM Referred By: Neville Mccall Confirmed By: VELASQUEZ DIOP MD 05/13/25 0839 Date Velasquez Diop MD CC: Dr. Svitlana Becerril MD; Dr. Neville Mccall DO Signed Normal [facility] HIP, UNI W/ Pelvis 2-3 Views on 2025 HIP, UNI W/ Pelvis 2-3 Views [facility] Imaging Services [address] [place] [address] [id number] HIP, UNI W/ Pelvis 2-3 Views MR#: [id number] Acct: [id number] Name: LAURA STEPHENS Rep #: [id number] : 1970 M 55 From: Ryan loza MD PCP: Dr. Svitlana Becerril MD Status: DEP AMB Study: HIP, UNI W/ Pelvis 2-3 Views Date of Exam: 09/08 Exam# [id number] Ordering Dr: Neville Mccall DO PROCEDURE: HIP, UNI W/ PELVIS 2-3 VIEWS 2025 REASON FOR EXAM: AVN, ONGOING PAIN AND POPPING TECHNIQUE: HIP, UNI W/ PELVIS 2-3 VIEWS COMPARISON: Prior study dated February 06, 2025. FINDINGS: Bones: Heterogeneous appearance of the lateral aspect of the right femoral head with cystic changes. Avascular necrosis should be ruled out. Joints: Moderate degree of joint space narrowing of the right hip joint. Findings suggestive of right femoral acetabular impingement. Soft tissues: Soft tissues are unremarkable. Other: RAD/HIP, UNI W/ Pelvis 2-3 Views IMPRESSION: Findings in keeping with the avascular necrosis of the right femoral head with evidence of joint space narrowing and femoral acetabular impingement. Reading Location: [place] [address] CC: Dr. Svitlana Becerril MD; Dr. Nveille Mccall DO Bookmobile Driver: Signed Normal [facility] Orthopedic Visit Reporton Orthopedic Visit Report [facility] [address] [place] [address] OFFICE VISIT Date of Service: 04/24/25 MR#: [id number] Acct: [id number] Name: LAURA STEPHENS Rep #: [id number] : 1970 Provider: Dr. Neville pina DO Age/Sex: 55/M Location: [facility] Status: Signed Intake Vital Signs 02/06/25 08:04 Height 6 ft Intake Visit Reasons: RIGHT HIP Chief Complaint: Right hip follow-up Is patient in pain?: Yes (Right hip ) Pain scale (1-10): 2 Allergies No Known Allergies Allergy (Verified 04/24/25 11:20) Medications ???Medication ???Instructions ???Recorded ???Confirmed ???Type acetaminophen 325 mg tablet 650 mg PO Q4H PRN Pain 11/21/22 History aspirin 81 mg chewable tablet 81 mg PO DAILY 11/21/22 04/24/25 H istory (Alyse Chewable Low Dose Aspirin) cholecalciferol (vitamin D3) 10 10 mcg PO DAILY 09/19/23 04/24/25 History mcg (400 unit) capsule alprazolam 0.25 mg tablet (Xanax) 0.25 mg PO DAILY PRN anxiety #5 1 12/11/22 04/24/25 Rx tabs atorvastatin 80 mg tablet 40 mg (1/2 x 80 mg) PO QHS #90 tab s 04/21/24 04/24/25 Rx fluoxetine 20 mg capsule mg PO DAILY 10/31/24 04/24/25 Hist ory allopurinol 100 mg tablet 100 mg PO QDAY 01/09/25 04/24/25 H istory metoprolol tartrate 25 mg tablet 12.5 mg (1/2 x 25 mg) PO BID #90 0 04/07/25 04/24/25 Rx tabs PFSH Medical History Gout Wears glasses History of steroid therapy High cholesterol History of heart attack Former smoker History of echocardiogram Cardiology follow-up encounter BPH (benign prostatic hyperplasia) GI bleed Borderline type 2 diabetes mellitus Bilateral shoulder pain Essential hypertension 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 Multi-vessel coronary artery stenosis (11/08/22) Alcohol abuse Tobacco abuse 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 Surgical History History of cardiac catheterization History of coronary artery bypass surgery ( 11/13/22) Family History Grandmother Breast cancer Father Prostate cancer Skin cancer CAD (coronary artery disease) Mother Hypertension High cholesterol Grandfather CAD (coronary artery disease) Social History current occupational status: employed current occupation: [employer] Smoking Status: Current every day smoker tobacco type: e-cigarettes Electronic Cigarette Use: with nicotine alcohol intake: current alcohol intake frequency: 3 or more drinks per day Alcohol type: beer substance use type: does not use what type of physical activity do you participate in: none HPI RIGHT HIP Details: This documentation accurately reflects the service provided and the decisions made by me, Dr. Neville Mccall, DO 04/24/25 0840. Part of today???s visit was documented by Sapphire Marcus RN, acting as s cribe. LAURA STEPHENS is a 55 year old M here today for ongoing right hip pain. He states his uric acid level is down to 6 as of March 16. The hip is popping and and clicking with movement and ROM. He is no longer taking the Indomethacin because it was not helpful. He does take Ibuprofen now as needed with minimal relief. He reports ongoing issues with sleep at night due to the pain. The pain is still on the lateral side and going into the groin. He denies numbness or tingling into the leg. No recent PT or pain management. Patient's right knee started bothering him over the last 6 months and he notices increased pain when standing longer periods. 02/06/2025 visit: 54 year old M here today for increased right hip pain over the last two weeks. he is still taking the indomethacin and allopurinol 100mg QD . He has not had his uric acid tested recently and his last was over 10. He states he has been following the gout diest. He states that within the past 2 weeks he has been having increased pain that is progressively getting worse, and has missed work because of it. He has been having trouble sleeping at night due to the pain. He states that initially the indomethacin seemed to help but at this point he doesn't think it is helping. He states that his pain is the worst in the morning and at night but he states that it can be hit or miss. His pain is over the lateral side and in the groin. 01/09/2025: here today for right hip follow-up. Patient rates his pain 2/10 today. Patient states he did nonweight-bearing the best he could but when he first started it was icy out so it was a struggle. He did have a gout flare-up uric acid 10.8 on 12/26/[address] Ray prescribed him allopurinol. He has finished the alendronate as well as the celebre (more content not included)... Normal [facility] Foot min 3 Viewson 5 Foot min 3 Views [facility] Imaging Services [address] [place] [address] Foot min 3 Views MR#: [id number] Acct: [id number] Name: LAURA STEPHENS Rep #: [id number] : 1970 M 54 From: Srinivasan Haskins MD PCP: Dr. Svitlana Becerril MD Status: REG CLI Study: Foot min 3 Views Date of Exam: 03/16/25 Exam# [id number] Ordering Dr: Svitlana Becerril MD PROCEDURE: FOOT MIN 3 VIEWS 03/16/2025 REASON FOR EXAM: LEFT FOOT PAIN TECHNIQUE: 3 views of the left foot. COMPARISON: None FINDINGS: Bones: No visible fracture. No suspicious bone lesion. Joints: Normal alignment. Joint spaces preserved. No arthropathic features. Soft tissues: Soft tissues are unremarkable. RAD/Foot min 3 Views IMPRESSION: Unremarkable radiographs of the left foot. Reading Location: [id number] CC: Dr. Svitlana Becerril MD Bookmobile Driver: Signed Normal [facility] Serum or plasma uric acid me asurement (mass/volume)Ordered By: Svitlana Becerril on 03-16-2025 Urate [Mass/Vol] 6.0 mg/dL 3.5-7.2 [facility] Comment on above: The drugs N-Acetylcy steine and Metamizole may falsely depress this assay. Uric Acidon 03-16-2025 URIC 6.0 mg/dL Normal 3.5-7.2 [facility] Comment on above: Order Comment: Order Date: 03/16/25Order Info: [id number] - URIC Result Comment: The drugs N-Acetylcysteine and Metamizole may falsely depress this assay. Performed By: #### L 501.1400 ####[facility] [id number] [facility] [place], [place], [id number] HIP, UNI W/ Pelvis 2-3 Views on 02-06-2025 HIP, UNI W/ Pelvis 2-3 Views [facility] Imaging Services [address] [place], [place] [address] HIP, UNI W/ Pelvis 2-3 Views MR#: [id number] Acct: [id number] Name: LAURA STEPHENS Rep #: [id number] : 1970 M 54 From: Pete Mas MD PCP: Dr. Svitlana Becerril MD Status: DEP AMB Study: HIP, UNI W/ Pelvis 2-3 Views Date of Exam: Exam# [id number] Ordering Dr: Neville Mccall DO PROCEDURE: HIP, UNI W/ PELVIS 2-3 VIEWS 02/06/2025 REASON FOR EXAM: CHRONIC PAIN, WORSE RECENTLY TECHNIQUE: Frontal views of the pelvis with two views of the right hip COMPARISON: January 09, 2025 FINDINGS: The pelvic bones appear intact. SI joints are aligned. There is subcortical sclerosis in the right femoral head measuring 4.0 x 1.1 cm with flattening of the articular surfaces, likely osteonecrosis. There is no acute fracture or dislocation. Mineralization is normal. RAD/HIP, UNI W/ Pelvis 2-3 Views IMPRESSION: There is subcortical sclerosis in the right femoral head measuring 4.0 x 1.1 cm with flattening of the articular surfaces, likely osteonecrosis, similar to the prior. Reading Location: [place] CC: Dr. Svitlana Becerril MD; Dr. Neville Mccall DO Bookmobile Driver: Signed Normal [facility] Orthopedic Visit Reporton Orthopedic Visit Report [facility] [address] [place] [address] [address] [place] [address] OFFICE VISIT Date of Service: 02/06/25 MR#: [id number] Acct: [id number] Name: LAURA STEPHENS Rep #: [id number] : 1970 Provider: Dr. Neville pina DO Age/Sex: 54/M Location: [facility] Status: Signed Intake Vital Signs 10/31/24 09:20 02/06/25 08:04 Height 6 ft 6 ft Weight: 236 lb 2 oz BMI 32.0 Intake Visit Reasons: RIGHT HIP Chief Complaint: Right hip follow-up Allergies No Known Allergies Allergy (Verified 02/06/25 08:05) Medications ???Medication ???Instructions ???Recorded ???Confirmed ???Type acetaminophen 325 mg tablet 650 mg PO Q4H PRN Pain 11/21/22 History aspirin 81 mg chewable tablet 81 mg PO DAILY 11/21/22 02/06/25 H istory (Alyse Chewable Low Dose Aspirin) cholecalciferol (vitamin D3) 10 10 mcg PO DAILY 09/19/23 02/06/25 History mcg (400 unit) capsule alprazolam 0.25 mg tablet (Xanax) 0.25 mg PO DAILY PRN anxiety #5 1 12/11/22 02/06/25 Rx tabs atorvastatin 80 mg tablet 40 mg (1/2 x 80 mg) PO QHS #90 tab s 04/21/24 02/06/25 Rx metoprolol tartrate 25 mg tablet 12.5 mg (1/2 x 25 mg) PO BID #90 0 04/21/24 02/06/25 Rx tabs fluoxetine 20 mg capsule mg PO DAILY 10/31/24 02/06/25 Hist ory allopurinol 100 mg tablet 100 mg PO QDAY 01/09/25 02/06/25 H istory indomethacin 50 mg capsule 50 mg PO TID #60 caps 01/09/25 Rx PFSH Medical History Gout Wears glasses History of steroid therapy High cholesterol History of heart attack Former smoker History of echocardiogram Cardiology follow-up encounter BPH (benign prostatic hyperplasia) GI bleed Borderline type 2 diabetes mellitus Bilateral shoulder pain Essential hypertension 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 Multi-vessel coronary artery stenosis (11/08/22) Alcohol abuse Tobacco abuse 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 Surgical History History of cardiac catheterization History of coronary artery bypass surgery ( 11/13/22) Family History Grandmother Breast cancer Father Prostate cancer Skin cancer CAD (coronary artery disease) Mother Hypertension High cholesterol Grandfather CAD (coronary artery disease) Social History 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 Neville Mccall, DO 02/06/25 0738. Part of today???s visit was documented by Shantelle CROWDER, acting as scribe. LAURA STEPHENS is a 54 year old M here today for increased right hip pain over the last two weeks. Patient states that he is still taking the indomethacin and allopurinol 100mg QD . He has not had his uric acid tested recently and his last was over 10. He states he has been following the gout diest. He states that within the past 2 weeks he has been having increased pain that is progressively getting worse, and has missed work because of it. He has been having trouble sleeping at night due to the pain. He states that initially the indomethacin seemed to help but at this point he doesn't think it is helping. He states that his pain is the worst in the morning and at night but he states that it can be hit or miss. His pain is over the lateral side and in the groin. 01/09/2025: here today for right hip follow-up. Patient rates his pain 2/10 today. Patient states he did nonweight-bearing the best he could but when he first started it was icy out so it was a struggle. He did have a gout flare-up uric acid 10.8 on 12/26/[address] Ray prescribed him allopurinol. He has finished the alendronate as well as the celebrex. He states if he moves the hip just right the hip will freeze and feel like it needs to pop. He states it has not gotten better since his last visit. Plan:Obtained and reviewed additional hip imaging today, there has been no progression of AVN lesion. Recent blood work indicated uric acid elevated greater than 10 may be primary source of hip pain was started on allopurinol by PCP. I did explain that pain from gout will not be resolved with hip arthroplasty. Recommend continued lowering of uric acid and see where he is at in terms of pain control and function. We would (more content not included)... Normal [facility] Serum or plasma uric acid me asurement (mass/volume)Ordered By: Neville Mccall on 02-06-2025 Urate [Mass/Vol] 9.5 mg/dL High 3.5-7.2 [facility] Comment on above: The drugs N-Acetylcy steine and Metamizole may falsely depress this assay. Uric Acidon 02-06-2025 URIC 9.5 mg/dL High 3.5-7.2 [facility] Comment on above: Result Comment: The drugs N-Acetylcysteine and Metamizole may falsely depress this assay. Performed By: #### L 501.1400 ####[facility] [id number] [place], [address] HIP, UNI W/ Pelvis 2-3 Views on 01-09-2025 HIP, UNI W/ Pelvis 2-3 Views [facility] Imaging Services [address] [place], [place] [address] HIP, UNI W/ Pelvis 2-3 Views MR#: [id number] Acct: [id number] Name: LAURA STEPHENS Rep #: [id number] : 1970 M 54 From: Víctor Fraga i, DO PCP: Dr. Svitlana Becerril MD Status: DEP AMB Study: HIP, UNI W/ Pelvis 2-3 Views Date of Exam: Exam# [id number] Ordering Dr: Neville Mccall DO PROCEDURE: Pelvis and right hip radiographs, three views 01/09/2025 REASON FOR EXAM: CHRONIC PAIN TECHNIQUE: Three views of the pelvis and right hip were obtained. COMPARISON: 10/20/2024 FINDINGS: Three views of the pelvis and right hip were obtained. Bones are osteopenic. Degenerative changes lower lumbar spine. SI joints are intact. No displaced pelvic fracture. The proximal femurs are intact. No acute fracture or dislocation of the right femur. There are lytic and sclerotic areas of the superior femoral heads, with some similar flattening of the superior right femoral head. Mild degenerative change of the left hip joint, to a mild/moderate degree on the right. RAD/HIP, UNI W/ Pelvis 2-3 Views IMPRESSION: Osteopenia. No acute bony abnormality of the pelvis/right hip. 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 Mild degenerative change left hip joint, to a mild/moderate degree on the right. Reading Location: [facility] CC: Dr. Svitlana Becerril MD; Dr. Neville Mccall DO Bookmobile Driver: Signed Normal [facility] Orthopedic Visit Reporton Orthopedic Visit Report [facility] [address] [place] [address] 5 [place] [address] OFFICE VISIT Date of Service: 01/09/25 MR#: [id number] Acct: [id number] Name: LAURA STEPHENS Rep #: [id number] : 1970 Provider: Dr. Neville pina DO Age/Sex: 54/M Location: [facility] Status: Signed Intake Vital Signs 10/31/24 09:20 Height 6 ft Weight: 233 lb BMI 31.6 Intake Visit Reasons: RIGHT HIP Chief Complaint: Right hip follow-up Accompanied by: Self Is patient in pain?: Yes Pain scale (1-10): 2 Allergies No Known Allergies Allergy (Verified 01/09/25 09:07) Medications ???Medication ???Instructions ???Recorded ???Confirmed ???Type acetaminophen 325 mg tablet 650 mg PO Q4H PRN Pain 11/21/22 History aspirin 81 mg chewable tablet 81 mg PO DAILY 11/21/22 01/09/25 H istory (Alyse Chewable Low Dose Aspirin) cholecalciferol (vitamin D3) 10 10 mcg PO DAILY 09/19/23 01/09/25 History mcg (400 unit) capsule alprazolam 0.25 mg tablet (Xanax) 0.25 mg PO DAILY PRN anxiety #5 1 12/11/22 01/09/25 Rx tabs atorvastatin 80 mg tablet 40 mg (1/2 x 80 mg) PO QHS #90 tab s 04/21/24 01/09/25 Rx metoprolol tartrate 25 mg tablet 12.5 mg (1/2 x 25 mg) PO BID #90 0 04/21/24 01/09/25 Rx tabs fluoxetine 20 mg capsule mg PO DAILY 10/31/24 01/09/25 Hist ory allopurinol 100 mg tablet 100 mg PO QDAY 01/09/25 01/09/25 H istory indomethacin 50 mg capsule 50 mg PO TID #60 caps 01/09/25 Rx PFSH Medical History Gout Wears glasses History of steroid therapy High cholesterol History of heart attack Former smoker History of echocardiogram Cardiology follow-up encounter BPH (benign prostatic hyperplasia) GI bleed Borderline type 2 diabetes mellitus Bilateral shoulder pain Essential hypertension 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 Multi-vessel coronary artery stenosis (11/08/22) Alcohol abuse Tobacco abuse 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 Surgical History History of cardiac catheterization History of coronary artery bypass surgery ( 11/13/22) Family History Grandmother Breast cancer Father Prostate cancer Skin cancer CAD (coronary artery disease) Mother Hypertension High cholesterol Grandfather CAD (coronary artery disease) Social History 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 Neville Mccall, DO 01/09/25 0758. Part of today???s visit was documented by [ ], acting as scribe. LAURA STEPHENS is a 54 year old M here today for right hip follow-up. Patient rates his pain /10 today. Patient states he did nonweight-bearing the best he could but when he first started it was icy out so it was a struggle. He did have a gout flare-up uric acid 10.8 on 12/26/[address] Ray prescribed him allopurinol. He has finished the alendronate as well as the celebrex. He states if he moves the hip just right the hip will freeze and feel like it needs to pop. He states it has not gotten better since his last visit. 10/31/2024:54 year old M with medical comorbidities significant for but not limited to gout, myalgia, anxiety depression, non-ST elevation [place], unstable angina, GI bleed, borderline type 2 diabetes, tobacco abuse(current vape), hypertension history of coronary artery bypass surgery, on Xanax here today for initial evaluation of right hip pain. He reports a 4 month history of hip pain. He saw his pcp and had x-rays and was referred to our office. He reports the pain extends into his groin and down the lateral hip into the thigh. He denies injury or surgery to the hip. He takes Ibuprofen as needed for the pain. He has not seen pain management or done PT. He does get some popping in the hip at night and it sometimes wakes him up at night. He was a heavy drinker up until about 2 years ago, he does still drink just not as heavily. He denies any history of cocaine use or scuba diving or extended steroid use. Of note his pain is worse over the posterior lateral hip than it is in the groin does extend into the groin to a lesser degree his pain is not severe but can be worse with stairs. Of note he did have pain in his left hip back in 2020 (more content not included)... Normal [facility] Serum or plasma uric acid me asurement (mass/volume)Ordered By: Timmy Manzano on 12-26-2024 Urate [Mass/Vol] 10.8 mg/dL High 3.5-7.2 [facility] Comment on above: The drugs N-Acetylcy steine and Metamizole may falsely depress this assay. Uric Acidon 12-26-2024 URIC 10.8 mg/dL High 3.5-7.2 [facility] Comment on above: Result Comment: The drugs N-Acetylcysteine and Metamizole may falsely depress this assay. Performed By: #### L 501.1400 ####[facility] [id number] [place], [address] Bilirubin directOrdered By: Lalito Zamora on 10-31-2024 Bilirubin.direct [Mass/Vol] 0.13 mg/dL 0.00-0.30 [facility] Bilirubin, totalOrdered By: Lalito Zamora on 10-31-2024 Bilirubin [Mass/Vol] 0.50 mg/dL 0.20-1.00 [facility] Comment on above: For patients on eltr ombopag therapy, use of Dimension [place] TBIL is not recommended. High density lipoprotein (HD L) measurementOrdered By: Lalito Zamora on 10-31-2024 Cholesterol in HDL [Mass/Vol] 51 mg/dL >40 [facility] Comment on above: The drugs N-Acetylcy steine and Metamizole may falsely depress this assay. Reference Range HDL <40 mg/dL Low HDL Cholesterol HDL >or= 60 mg/dL High HDL Cholesterol Laboratory - Chemistry and C hemistry - challengeOrdered By: Lalito Zamora on 10-31-2024 AST [Catalytic activity/Vol] 30 U/L 15-37 [facility] Lipid Profileon 10-31-2024 Cholesterol [Mass/Vol] 195 mg/dL Normal [address] [facility] Comment on above: Result Comment: <200 mg/dL Desirable 200-240 mg/dL Borderline >240 mg/dL High Risk Performed By: #### L 500.3400, L500.4100 ####[facility] [address] [place], [address] Cholesterol in HDL [Mass/Vol] 51 mg/dL Normal [facility] Comment on above: Result Comment: The drugs N-Acetylcysteine and Metamizole may falsely depress this assay. Reference Range HDL <40 mg/dL Low HDL Cholesterol HDL >or= 60 mg/dL High HDL Cholesterol Performed By: #### L 500.3400, L500.4100 ####[facility] [address] [place], [address] Cholesterol in LDL [Mass/Vol] 112 mg/dL Normal 0-130 [facility] Comment on above: Performed By: #### L 500.3400, L500.4100 ####[facility] [address] [place], [address] Cholesterol in VLDL [Mass/Vol] 32 mg/dL Normal 5-40 [facility] Comment on above: Performed By: #### L 500.3400, L500.4100 ####[facility] [address] [place], [address] Triglyceride [Mass/Vol] 162 mg/dL Normal [facility] Comment on above: Result Comment: The drugs N-Acetylcysteine and Metamizole may falsely depress this assay. Serum Triglycerides Reference Interval Normal <150 mg/dL Borderline high 150 - 199 mg/dL High 200 - 499 mg/dL Very High > or = 500 mg/dL Performed By: #### L 500.3400, L500.4100 ####[facility] [address] [place], [address] Liver Profileon 10-31-2024 Albumin [Mass/Vol] 4.1 g/dL Normal 3.2-5.0 [facility] Comment on above: Performed By: #### L 500.3400, L500.4100 ####[facility] [address] [place], [address] ALK P 90 U/L Normal 45-117 [facility] Comment on above: Performed By: #### L 500.3400, L500.4100 ####[facility] [address] [place], [address] ALT [Catalytic activity/Vol] 48 U/L Normal 16-61 [facility] Comment on above: Performed By: #### L 500.3400, L500.4100 ####[facility] [address] [place], [address] AST [Catalytic activity/Vol] 30 U/L Normal 15-37 [facility] Comment on above: Performed By: #### L 500.3400, L500.4100 ####[facility] [address] [place], [address] Bilirubin [Mass/Vol] 0.50 mg/dL Normal 0.20-1.00 [facility] Comment on above: Result Comment: For patients on eltrombopag therapy, use of Dimension [place] TBIL is not recommended. Performed By: #### L 500.3400, L500.4100 ####[facility] [address] [place], [address] Bilirubin.direct [Mass/Vol] 0.13 mg/dL Normal 0.00-0.30 [facility] Comment on above: Performed By: #### L 500.3400, L500.4100 ####[facility] [address] [place], [address] Globulin (S) [Mass/Vol] 3.5 g/dL Normal 2.2-4.2 [facility] Comment on above: Performed By: #### L 500.3400, L500.4100 ####[facility] [address] [place], [place], [id number] T PROT 7.6 g/dL Normal 6.4-8.2 [facility] Comment on above: Performed By: #### L 500.3400, L500.4100 ####[facility] [address] [place], [place], [address] Low density lipoprotein (LDL ) cholesterol measurementOrdered By: Lalito Zamora on 10-31-2024 Cholesterol in LDL [Mass/Vol] 112 mg/dL 0-130 [facility] Orthopedic Visit Reporton Orthopedic Visit Report [facility] [address] [place] [address] [address] [place], [place] [address] OFFICE VISIT Date of Service: 10/31/24 MR#: [id number] Acct: [id number] Name: LAURA STEPHENS Beatriz Rep #: [id number] : 1970 Provider: Dr. Neville pina DO Age/Sex: 54/M Location: [facility] Status: Signed Intake Vital Signs 09/29/24 16:56 10/31/24 09:20 Height 6 ft 6 ft Weight: 233 lb BMI 31.6 Intake Visit Reasons: RIGHT HIP Chief Complaint: Right hip Accompanied by: Is patient in pain?: Yes (Right hip ) Pain scale (1-10): 5 Allergies No Known Allergies Allergy (Verified 10/31/24 09:20) Medications ???Medication ???Instructions ???Recorded ???Confirmed ???Type acetaminophen 325 mg tablet 650 mg PO Q4H PRN Pain 11/21/22 10/31/24 History aspirin 81 mg chewable tablet 81 mg PO DAILY 11/21/22 10/31/24 History (Alyse Chewable Low Dose Aspirin) cholecalciferol (vitamin D3) 10 10 mcg PO DAILY 09/19/23 10/31/24 History mcg (400 unit) capsule alprazolam 0.25 mg tablet (Xanax) 0.25 mg PO DAILY PRN anxiety #5 10/10/23 10/31/24 Rx tabs atorvastatin 80 mg tablet 40 mg (1/2 x 80 mg) PO QHS #90 tabs 04/21/24 10/31/24 Rx metoprolol tartrate 25 mg tablet 12.5 mg (1/2 x 25 mg) PO BID #90 04/21/24 10/31/24 Rx tabs alendronate 70 mg tablet 70 mg PO QWEEK #6 tabs 10/31/24 10/31/24 Rx fluoxetine 20 mg capsule mg PO DAILY 10/31/24 10/31/24 History PFSH Medical History Gout Wears glasses History of steroid therapy High cholesterol History of heart attack Former smoker History of echocardiogram Cardiology follow-up encounter BPH (benign prostatic hyperplasia) GI bleed Borderline type 2 diabetes mellitus Bilateral shoulder pain Essential hypertension 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 Neville Mccall, DO 10/31/24 0855. Part of today???s visit was documented by , acting as scribe. LAURA STEPHENS is a 54 year old M with medical comorbidities significant for but not limited to gout, myalgia, anxiety depression, non-ST elevation NJ, unstable angina, GI bleed, borderline type 2 diabetes, tobacco abuse(current vape), hypertension history of coronary artery bypass surgery, on Xanax here today for initial evaluation of right hip pain. He reports a 4 month history of hip pain. He saw his pcp and had x-rays and was referred to our office. He reports the pain extends into his groin and down the lateral hip into the thigh. He denies injury or surgery to the hip. He takes Ibuprofen as needed for the pain. He has not seen pain management or done PT. He does get some popping in the hip at night and it sometimes wakes him up at night. He was a heavy drinker up until about 2 years ago, he does still drink just not as heavily. He denies any history of cocaine use or scuba diving or extended steroid use. Of note his pain is worse over the posterior lateral hip than it is in the groin does extend into the groin to a lesser degree his pain is not severe but can be worse with stairs. 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 Of note his son has AVN. Ortho Exam General General: Yes no acute distress Neurologic: Yes alert and Yes oriented x3 Psychologic: Yes reasonable and appropriate Right Hip internal rotation @90 degree flexion: 10 degrees external rotation @90 degree extension: 65 degrees HIP: no redness,ecchymosis, or masses tender over greater sciatic notch,piriformis area with some tightness pain over lateral hip with abbduction but good strength 5 out of 5 hip flexion (more content not included)... Normal [facility] Serum globulin measurementOr dered By: Lalito Zamora on 10-31-2024 Globulin (S) [Mass/Vol] 3.5 g/dL 2.2-4.2 [facility] Serum or plasma alanine souza otransferase (ALT) measurementOrdered By: Lalito Zamora on 10-31-2024 ALT [Catalytic activity/Vol] 48 U/L 16-61 [facility] Serum or plasma albumin jose urement (mass/volume)Ordered By: Lalito Zamora on 10-31-2024 Albumin [Mass/Vol] 4.1 g/dL 3.2-5.0 [facility] Serum or plasma alkaline sumanth sphatase measurementOrdered By: Lalito Zamora on 10-31-2024 ALP [Catalytic activity/Vol] 90 U/L 45-117 [facility] Serum or plasma cholesterol measurement (mass/volume)Ordered By: Lalito Zamora on 10-31-2024 Cholesterol [Mass/Vol] 195 mg/dL <[address] [facility] Comment on above: <200 mg/dL Desirable 200-240 mg/dL Borderline >240 mg/dL High Risk Total proteinOrdered By: Sg greerkevin Noah on 10-31-2024 Protein [Mass/Vol] 7.6 g/dL 6.4-8.2 [facility] Triglycerides measurementOrd ered By: Lalito Zamora on 10-31-2024 Triglyceride [Mass/Vol] 162 mg/dL <199 [facility] Comment on above: The drugs N-Acetylcy steine and Metamizole may falsely depress this assay.Serum Triglycerides Reference Interval Normal <150 mg/dL Borderline high 150 - 199 mg/dL High 200 - 499 mg/dL Very High > or = 500 mg/dL Very low density lipoprotein (VLDL) cholesterol measurementOrdered By: Lalito Zamora on 10-31-2024 VLDL Cholesterol 32 mg/dL 5-40 [facility] HIP, UNI W/ Pelvis 2-3 Views on 10-20-2024 HIP, UNI W/ Pelvis 2-3 Views [facility] [address] [place], [place] [address] HIP, UNI W/ Pelvis 2-3 Views MR#: [id number] Acct: [id number] Name: LAURA STEPHENS Rep #: [id number] : 1970 M 54 From: Forrest Estevez MD PCP: Dr. Svitlana Becerril MD Status: REG CLI Study: HIP, UNI W/ Pelvis 2-3 Views Date of Exam: 04/08 Exam# [id number] Ordering Dr: Svitlana Becerril MD [id number] STUDY: X-RAY - PELVIS AND RIGHT HIP REASON FOR EXAM: Male, 54 years old. Right hip pain. TECHNIQUE: 3 views of the pelvis and right hip. COMPARISON: Pelvis and bilateral hip radiographs dated 08/05/2020. FINDINGS: There is a non-specific bowel gas pattern. Normal visualized soft tissue structures. Normal bilateral iliac wings, sacroiliac joints and visualized sacrum. Normal bilateral superior and inferior pubic rami. Normal pubic symphysis. Normal bilateral ischial tuberosities. There is new lucency and sclerosis in the right superior femoral head, compatible with avascular necrosis. There is new flattening of the articular surface of the right superior femoral head, compatible with subchondral collapse. There is unchanged avascular necrosis of the left femoral head. RAD/HIP, UNI W/ Pelvis 2-3 Views IMPRESSION: New avascular necrosis in the right superior femoral head. New flattening of the articular surface of the right superior femoral head, compatible with subchondral collapse. Unchanged avascular necrosis of the left femoral head. Electronically Signed: Forrest Estevez MD at 15:26 EST Reading Location ID and State: [address] [place] [address] , Service support , CC: Dr. Svitlana Becerril MD [employer] Driver: Signed Normal [facility] C-REACTIVE PROTEINon 024 CRP [Mass/Vol] 25.8 mg/L High <5.0 [facility] Comment on above: Performed By: #### L AB149, LAB17 #### Manager Medical: RUTH MATA ([id number]) [facility] [address] [place] [address] CBC WITH AUTO DIFFERENTIALon 09-30-2024 Basophils (Bld) [#/Vol] 0.1 10*3/uL Normal 0.0-0.2 [facility] Comment on above: Performed By: #### L [id number], [id number] #### Manager Medical: RUTH MATA ([id number]) [facility]) [address] [place] [address] Basophils/100 WBC (Bld) 0.9 % Normal 0.0-2.0 [facility] Comment on above: Performed By: #### L [id number], [id number] #### Manager Medical: RUTH MATA ([id number]) [facility]) [address] [place] [address] Eosinophils (Bld) [#/Vol] 0.2 10*3/uL Normal 0.0-0.5 [facility] Comment on above: Performed By: #### L [id number], [id number] #### Manager Medical: RUTH MATA ([id number]) [facility]) [address] [place] [address] Eosinophils/100 WBC (Bld) 2.3 % Normal 0.0-6.0 [facility] Comment on above: Performed By: #### L [id number], [id number] #### Manager Medical: RUTH MATA ([id number]) [facility]) [address] [place] [address] Erythrocyte distribution width (RBC) [Ratio] 13.7 % Normal 11.5-15.0 [facility] Comment on above: Performed By: #### L [id number], [id number] #### Manager Medical: RUTH MATA ([id number]) [facility]) [address] [place] [address] Hematocrit (Bld) [Volume fraction] 39.3 % Low 40.0-52.0 [facility] Comment on above: Performed By: #### L [id number], [id number] #### Manager Medical: RUTH [id number]) [facility]) [address] [place] [address] Hemoglobin (Bld) [Mass/Vol] 13.1 g/dL Normal 13.0-18.0 [facility] Comment on above: Performed By: #### L [id number], [id number] #### Manager Medical: RUTH MATA ([id number]) [facility]) [address] [place] [address] IMMATURE GRANS % 0.5 % Normal 0.0-2.0 [facility] Comment on above: Performed By: #### L [id number], [id number] #### Manager Medical: RUTH MATA ([id number]) [facility]) [address] [place] [address] IMMATURE GRANS ABSOLUTE 0.0 10*3/uL Normal <0.1 [facility] Comment on above: Performed By: #### L UL2896, YKH871 #### Manager Medical: RUTH MATA ([id number]) [facility] [address] [place] [address] Lymphocytes (Bld) [#/Vol] 3.1 10*3/uL Normal 1.0-4.3 [facility] Comment on above: Performed By: #### Loyda [id number], [id number] #### Manager Medical: RUTH MATA ([id number]) [facility]) [address] [place] [address] Lymphocytes/100 WBC (Bld) 36.8 % Normal 15.0-45.0 [facility] Comment on above: Performed By: #### L [id number], [id number] #### Manager Medical: RUTH MATA ([id number]) [facility]) [address] [place] [address] MCH (RBC) [Entitic mass] 28.9 pg Normal 26.0-34.0 [facility] Comment on above: Performed By: #### L [id number], [id number] #### Manager Medical: RUTH MATA ([id number]) [facility]) [address] [place] [address] MCHC 33.3 % Normal 30.5-36.0 [facility] Comment on above: Performed By: #### L [id number], [id number] #### Manager Medical: RUTH MATA ([id number]) [facility] [address] [place] [address] MCV (RBC) [Entitic vol] 86.8 fL Normal 77.0-99.0 [facility] Comment on above: Performed By: #### L [id number], [id number] #### Manager Medical: RUTH MATA ([id number]) [facility]) [address] [place] [address] Monocytes (Bld) [#/Vol] 0.9 10*3/uL Normal 0.0-0.9 [facility] Comment on above: Performed By: #### L [id number], [id number] #### Manager Medical: RUTH MATA ([id number]) [facility]) [address] [place] [address] Monocytes/100 WBC (Bld) 11.2 % Normal 5.0-13.0 [facility] Comment on above: Performed By: #### Loyda [id number], [id number] #### Manager Medical: RUTH MATA ([id number]) [facility]) [address] [place] [address] NEUTROPHILS ABSOLUTE 4.1 10*3/uL Normal 1.8-7.5 [facility] Comment on above: Performed By: #### L [id number], [id number] #### Manager Medical: RUTH MATA ([id number]) [facility]) [address] [place] [address] Neutrophils/100 WBC (Bld) 48.3 % Normal 38.0-82.0 [facility] Comment on above: Performed By: #### L [id number], [id number] #### Manager Medical: RUTH MATA ([id number]) [facility]) [address] [place] [address] [place] NRBC 0.0 /100 WBCs Normal 0.0-2.0 [facility] Comment on above: Performed By: #### L [id number], [id number] #### Manager Medical: RUTH [id number]) [facility]) [address] [place] [address] Platelet mean volume (Bld) [Entitic vol] 10.1 fL Normal 9.0-12.7 [facility] Comment on above: Performed By: #### L [id number], [id number] #### Manager Medical: RUTH MATA ([id number]) [facility] [address] [place] [address] Platelets (Bld) [#/Vol] 310 10*3/uL Normal 140-440 [facility] Comment on above: Performed By: #### L [id number], WJA663 #### Manager Medical: RUTH MATA ([id number]) [facility]) [address] [place] [address] RBC (Bld) [#/Vol] 4.53 10*6/uL Normal 4.40-5.90 [facility] Comment on above: Performed By: #### Loyda [id number], [id number] #### Manager Medical: RUTH MATA ([id number]) [facility]) [address] [place] [address] WBC (Bld) [#/Vol] 8.4 10*3/uL Normal 3.6-10.7 [facility] Comment on above: Performed By: #### L [id number], [id number] #### Manager Medical: RUTH MATA ([id number]) [facility]) [address] [place] [address] COMPREHENSIVE METABOLIC PANE Surendra 09-30-2024 Albumin [Mass/Vol] 3.7 g/dL Normal 3.5-5.0 [facility] Comment on above: Performed By: #### L AB149, LAB17 #### Manager Medical: RUTH MATA ([id number]) [facility]) [address] [place] [address] ALP [Catalytic activity/Vol] 116 U/L Normal 40-150 [facility] Comment on above: Performed By: #### L AB149, LAB17 #### Manager Medical: RUTH [id number]) [facility] ([facility]) [address] [place] [address] [place] ALT [Catalytic activity/Vol] 30 U/L Normal <40 [facility] Comment on above: Performed By: #### L AB149, LAB17 #### Manager Medical: RUTH MATA ([id number]) [facility] [address] [place] [address] [place] Anion gap [Moles/Vol] 9 mmol/L Normal 3-13 [facility] Comment on above: Performed By: #### L AB149, LAB17 #### Manager Medical: RUTH MATA ([id number]) [facility] [address] [place] [address] [place] AST [Catalytic activity/Vol] 25 U/L Normal <34 [facility] Comment on above: Performed By: #### L AB149, LAB17 #### Manager Medical: RUTH MATA ([id number]) [facility] [address] [place] [address] [place] Bilirubin [Mass/Vol] 0.3 mg/dL Normal <1.2 [facility] Comment on above: Performed By: #### L AB149, LAB17 #### Manager Medical: RUTH MATA ([id number]) [facility] [address] [place] [address] [place] Calcium [Mass/Vol] 8.8 mg/dL Normal 8.4-10.2 [facility] Comment on above: Performed By: #### L AB149, LAB17 #### Manager Medical: RUTH MATA ([id number]) [facility] [address] [place] [address] [place] Chloride [Moles/Vol] 108 mmol/L High 98-107 [facility] Comment on above: Performed By: #### L AB149, LAB17 #### Manager Medical: RUTH MATA ([id number]) [facility] [address] [place] [address] [place] CO2 [Moles/Vol] 24 mmol/L Normal 22-29 [facility] Comment on above: Performed By: #### L AB149, LAB17 #### Manager Medical: RUTH MATA ([id number]) [facility]) [address] [place] [address] Creatinine [Mass/Vol] 1.12 mg/dL Normal 0.72-1.25 [facility] Comment on above: Performed By: #### L AB149, LAB17 #### Manager Medical: RUTH MATA ([id number]) [facility]) [address] [place] [address] GLOMERULAR FILTRATION RATE ML/MIN/1.73 SQ M.PREDICTED 79.0 mL/min/1.73m*2 Normal >60.0 [facility] Comment on above: Result Comment: Calc ulation based on the Chronic Kidney Disease Epidemiology Collaboration (CKD-EPI) equation refit without adjustment for race Performed By: #### L 149, LAB17 #### Manager Medical: RUTH MAAT ([id number]) [facility]) [address] [place] [address] Glucose [Mass/Vol] 146 mg/dL High 74-100 [facility] Comment on above: Performed By: #### L AB149, LAB17 #### Manager Medical: RUTH MATA ([id number]) [address] Potassium [Moles/Vol] 3.5 mmol/L Normal 3.5-5.1 [facility] Comment on above: Result Comment: [facility] potassium values may be up to 0.5 mmol/L lower than serum values. Performed By: #### L AB149, LAB17 #### Manager Medical: RUTH MATA ([id number]) [facility]) [address] [place] [address] Protein [Mass/Vol] 7.1 g/dL Normal 6.4-8.3 [facility] Comment on above: Performed By: #### L AB149, LAB17 #### Manager Medical: RUTH MATA ([id number]) [facility]) [address] [place] [address] Sodium [Moles/Vol] 141 mmol/L Normal 136-145 [facility] Comment on above: Performed By: #### L AB149, LAB17 #### Manager Medical: RUTH MATA ([id number]) [facility]) [address] [place] [address] Urea nitrogen [Mass/Vol] 18 mg/dL Normal 9-23 [facility] Comment on above: Performed By: #### L AB149, LAB17 #### Manager Medical: RUTH MATA ([id number]) [facility]) [address] [place] [address] Consulton 09-30-2024 Consult Ortho Consult Patient: Laura Stephens Date of : 1970 Acct: [id number] PCP: DENYS CUELLO Date of Admission: 09/30/2024 Date of Service: Pt seen/examined on 09/30/2024 Chief Complaint: Left elbow pain History Of Present Illness: This is a 54 y.o. oepa-hkzp-fvoewwqk male who presents with a 5-day history of left elbow pain. Patient states that about a week ago, he was feeling sick with subjective fever, chills, systemic symptoms. He states that about 5 days ago, his elbow began hurting with range of motion without any inciting trauma. He denies any known bites, scratches, injuring the elbow in any other way. He states that the pain has gotten mildly worse since that time. This prompted him to present to the [facility] ED. He denies other areas of pain/swelling in the bilateral upper or lower extremities. He denies any numbness/tingling in the bilateral upper or lower extremities. Patient has a history of gout that was diagnosed a couple of months ago, his flareups have been in the ankles in the past. He states that he is not on suppressive medication for it at this time. He states that with his primary care provider, they decided if he continues to have issues with gout flareups, they would discuss suppressive medication. Past medical history of NJ about 2 years ago. He is on aspirin daily. He denies diabetes, neuropathy. Denies kidney disease. Lives at home with his . 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 Denies pertinent orthopedic surgery history Patient ambulation status: no difficulty Antiplatelets/Anticoa gulation includes: ASA Hx from chart and/or Pt. Past Medical History: No past medical history on file. Past Surgical History: No past surgical history on file. Home Medications: Prior to Admission medications Not on File Current Hospital Medications: No current facility-administered medications for this encounter. No current outpatient medications on file. Allergies: Patient has no known allergies. Social History: Social History Socioeconomic History Marital status: Spouse name: Not on file Number of children: Not on file Years of education: Not on file Highest education level: Not on file Occupational History Not on file Tobacco Use Smoking status: Not on file Smokeless tobacco: Not on file Substance and Sexual Activity Alcohol use: Not on file Drug use: Not on file Sexual activity: Not on file Other Topics Concern Not on file Social History Narrative Not on file Social Drivers of Health Financial Resource Strain: Not on file Food Insecurity: Not on file Transportation Needs: Not on file Physical Activity: Not on file Stress: Not on file Social Connections: Not on file Intimate Partner Violence: Not on file Housing Stability: Not on file Family History: No family history on file. Further Family History is noncontributory to this injury. REVIEW OF SYSTEMS: Review of Systems - General ROS: negative for - chills, fatigue, fever, malaise or night sweats Psychological ROS: negative Ophthalmic ROS: negative ENT ROS: negative for - headaches or sore throat Hematological and Lymphatic ROS: negative for - bleeding problems or blood clots Respiratory ROS: no cough, shortness of breath, or wheezing Cardiovascular ROS: no chest pain or dyspnea on exertion Gastrointestinal ROS: negative Musculoskeletal ROS: See HPI Neurological ROS: negative for - bowel and bladder control changes, gait disturbance or numbness/tingling All other systems reviewed and are negative PHYSICAL EXAM: BP 107/84 Pulse 83 Temp 36.3 ?C (97.4 ?F) (Temporal) Resp 18 Ht 1.829 m (6') Wt 105 kg (232 lb) SpO2 97% BMI 31.46 kg/m? GENERAL APPEARANCE: Awake and oriented x3. No acute distress, except appropriate to injury. MOOD AND AFFECT: Calm appropriate to situation GAIT AND STATION: Patient is in bed.. COORDINATION and BALANCE: Patient is grossly coordinated Right Upper Extremity: -No obvious pain or deformity to inspection with normal joint range of motion, stability, and muscle strength except noted below -No TTP over clavicle, shoulder, humerus, elbow, forearm, wrist, hand, or fingers -TTP: nontender throughout extremity -Radial pulse palpable -SILT in radial/median/ ulnar nerve distributions -Motor + AIN/PIN/ulnar nerve functions -Skin intact except where noted below -Painless pROM at shoulder/elbow/wrist Atraumatic Left Upper Extremity: -No obvious pain or deformity to inspection with normal joint range of motion, stability, and muscle strength except noted below -No TTP over clavicle, shoulder, humerus, elbow, forearm, wrist, hand, or fingers -TTP: Elbow -Radial pulse palpable -SILT in radial/median/ ulnar nerve distributions, SILT to all digits -Motor + AIN/PIN/ulnar nerve functions -Skin intact except where noted below -Painless pROM at shoulder/elbow/wrist Mild erythem (more content not included)... Normal [facility] ED Nursing Noteon 09-30-2024 ED Nursing Note Ortho at bedside. Normal [facility] ED Nursing Note Ortho at bedside. Normal [facility] SEDIMENTATION RATE, AUTOMATE Don 09-30-2024 SEDIMENTATION RATE, ERYTHROCYTE 14 mm/hr High 0-10 [facility] Comment on above: Performed By: #### L [id number] #### Manager Medical: RUTH MATA ([id number]) [facility] ([facility]) [address] [place] [address] CNOVon 09-29-2024 CNOV Office Visit (UCWSTR ) LAURA STEPHENS ([id number]) 1970 M Date Time Provider Department 09/29/24 4:45 PM PENNY SOTOWSTR During your visit today, we recorded the following information about you: Temperature Pulse Respiration Blood pressure 97.9 degrees 97/minute 16/minute 124/82 Weight 105.5 kg Penny Soto APRN.REVERSE ENGINEER 09/29/2024 4:53 PM Signed This note was created using NoteWriter. Subjective Laura Stephens is a 54 year old male. 54 year old male with PMH gout presents for elbow complaints. Acute onset of symptoms was 2 to 3 days ago Left elbow +redness +swelling +reduced and limited ROM Denies known trauma or injury Denies prior history of same The history is provided by the patient. No geotechnical laboratory technician was used. Musculoskeletal Problem This is a new problem. The current episode started in the past 7 days. The problem occurs constantly. The problem has been gradually worsening. Associated symptoms include joint swelling. Pertinent negatives include no abdominal pain, anorexia, arthralgias, change in bowel habit, chest pain, chills, congestion, coughing, diaphoresis, fatigue, fever, headaches, myalgias, nausea, neck pain, numbness, rash, sore throat, swollen glands, urinary symptoms, vertigo, visual change, vomiting or weakness. Nothing aggravates the symptoms. He has tried nothing for the symptoms. The treatment provided no relief. History reviewed. No pertinent past medical history. PAST SURGICAL HISTORY Procedure Laterality Date NONE ALLERGIES Patient has no known allergies. MEDICATIONS sertraline (ZOLOFT) 100 mg tablet take 1 and ONE-HALF tablets BY MOUTH ONCE DAILY acetaminophen (TYLENOL) 325 mg tablet Take 650 mg by mouth every 4 hours as needed. aspirin 81 mg chewable tablet Take 1 tablet by mouth once daily. atorvastatin (LIPITOR) 80 mg tablet metoprolol tartrate, short acting, (LOPRESSOR) 25 mg tablet predniSONE (DELTASONE) 10 mg tablet Take 4 tabs daily for 3 days, then 2 tabs daily for 3 days, then 1 tab daily for 3 days with food. (Patient not taking: Reported on 09/29/2024) clopidogrel (PLAVIX) 75 mg tablet (Patient not taking: Reported on 07/15/2024) melatonin 3 mg tablet Take 6 mg by mouth. (Patient not taking: Reported on 07/15/2024) hydrocortisone (ANUSOL-HC) 25 mg RECTAL suppository 1 Suppository by RECTAL route twice daily as needed (hemorrhoids/rectal pain). (Patient not taking: Reported on 05/01/2023) psyllium Husk 0.52 g ORAL capsule Take 1 capsule by mouth once daily. (Patient not taking: Reported on 05/01/2023) FAMILY HISTORY Problem Relation Age of Onset Hypertension Mother Prostate Cancer Father 64 Diabetes Maternal Grandmother Heart Maternal Grandfather Social History Tobacco Use Smoking status: Every Day Current packs/day: 1.00 Average packs/day: 1 pack/day for 20.0 years (20.0 ttl pk-yrs) Types: Cigarettes Smokeless tobacco: Never Substance Use Topics Alcohol use: Yes Alcohol/week: 40.0 standard drinks of alcohol Types: 40 Cans of Beer (12oz) per week Drug use: No Review of Systems Constitutional: Negative for chills, diaphoresis, fatigue and fever. HENT: Negative for congestion and sore throat. Respiratory: Negative for cough. Cardiovascular: Negative for chest pain. Gastrointestinal: Negative for abdominal pain, anorexia, change in bowel habit, nausea and vomiting. Musculoskeletal: Positive for joint swelling. Negative for arthralgias, myalgias and neck pain. Left elbow pain Skin: Negative for rash. Neurological: Negative for vertigo, weakness, numbness and headaches. Hematological: Negative for adenopathy. Does not bruise/bleed easily. Objective BP 124/82 Pulse 97 Temp 36.6 ?C (97.9 ?F) (Tympanic) Resp 16 Wt 105.5 kg (232 lb 9.4 oz) SpO2 98% Physical Exam Vitals and nursing note reviewed. Constitutional: General: He is not in acute distress. Appearance: Normal appearance. He is not ill-appearing, toxic-appearing or diaphoretic. HENT: Head: Normocephalic and atraumatic. Right Ear: External ear normal. Left Ear: External ear normal. Nose: Nose normal. No congestion or rhinorrhea. Mouth/Throat: Mouth: Mucous membranes are moist. Pharynx: Oropharynx is clear. No oropharyngeal exudate or posterior oropharyngeal erythema. Eyes: General: Right eye: No discharge. Left eye: No discharge. Extraocular Movements: Extraocular movements intact. Conjunctiva/sclera: Conjunctivae normal. Pupils: Pupils are equal, round, and reactive to light. Cardiovascular: Rate and Rhythm: Normal rate and regular rhythm. Pulses: Normal pulses. Heart sounds: Normal heart sounds. No murmur heard. No friction rub. No gallop. Pulmonary: Effort: Pulmonary effort is normal. No respiratory distress. Breath sounds: Normal breath sounds. No stridor. No wheezing, rhonchi or rales. (more content not included)... Normal [facility] ED Provider Noteon ED Provider Note Emergency Department Encounter [facility] EMERGENCY DEPT Patient: Laura Stephens : 1970 Date of Evaluation: 09/29/2024 ED Supervising Physician: Matt Cazares MD HPI: I independently examined and evaluated Laura Stephens. In brief, Laura Stephens is a 54 y.o. male that presents to the emergency department for evaluation of left elbow pain and swelling. No trauma. Hx of gout, but never in elbow. No systemic symptoms. Pain with ROM at elbow. Focused exam: Erythema and edema at left elbow over extensor surface and tracking into forearm. Pain with passive ROM. EMERGENCY DEPARTMENT COURSE and DIFFERENTIAL DIAGNOSIS/MDM: Vitals: Vitals: 09/29/24 2126 09/30/24 0032 BP: 107/84 Pulse: 83 Resp: 18 Temp: 36.3 ?C (97.4 ?F) TempSrc: Temporal SpO2: 97% Weight: 105 kg (232 lb) Height: 1.829 m (6') Brief Course: The patient presented with a chief complaint of elbow pain. Seen by ortho. Exam benign and work-up reassuring. Responded well to anti-inflammatory medications. Will discharge with outpatient follow-up and treat as likely gout flare. See MADDY note for details Disposition: The patient will be discharged Critical Care Statement: Total critical care time today provided was at least 0 minutes. All diagnostic, treatment, and disposition decisions were made by myself in conjunction with the resident and/or MADDY. For all further details of the patient's emergency department visit, please see their documentation. (Please note that portions of this note may have been completed with a voice recognition program. Efforts were made to edit the dictations but occasionally words are mis-transcribed.) Matt Cazares MD [employer] Matt Cazares MD 09/30/24 0815 Normal [facility] ED Provider Note Emergency Department Encounter [facility] EMERGENCY DEPT Patient: Laura Stephens : 1970 Date of Evaluation: 09/29/2024 ED MADDY Provider: Odilon Medel PA-C EDcare was supervised by Dr. Cazares who independently examined and evaluated the patient. Please see their attestation note for further details. Chief Complaint Chief Complaint Patient presents with Joint Swelling Pt walked in through triage c/o left elbow swelling and redness and pain. Pt was sent by [facility] for possible septic work-up. Pt states fever of 101.2 four days ago but denies fever today. Pt A&OX4. MINTO I was wearing a N95, Surgical mask for the entirety of this encounter. Laura Stephens is a 54 y.o. male who presents to the emergency department for left elbow pain and swelling. No injury. Swelling started about 5 days ago. Patient said he has a history of gout but normally it is in his right foot. Limited range of motion. Patient has had subjective fevers at home. Limitations to history: None Outside historians: EMR Past History No past medical history on file. No past surgical history on file. Social History Socioeconomic History Marital status: Medications/Allergies Previous Medications No medications on file No Known Allergies Physical Exam BP 107/84 Pulse 83 Temp 36.3 ?C (97.4 ?F) (Temporal) Resp 18 Ht 1.829 m (6') Wt 105 kg (232 lb) SpO2 97% BMI 31.46 kg/m? Physical Exam GENERAL APPEARANCE: Awake and alert. Cooperative. HEENT: Normocephalic. Atraumatic. No trismus. NECK: Supple. Trachea midline. CARDIO: Normal rate. Radial pulses symmetrical and palpable LUNGS: Respirations unlabored. CTAB. ABDOMEN: Soft. Non-distended. Non-tender throughout. MUSCULOSKELETAL: Left elbow: Small effusion to the left elbow. Elbow is warm to the touch. Olecranon tender. Limited ROM in flexion and extension. Neurovascular exam distally intact per routine. Compartments surrounding are soft. Radial and Ulnar pulses 2+ bilaterally. SKIN: Warm and dry. NEUROLOGICAL: No gross facial drooping. No obvious neurologic deficits. Moves all 4 extremities spontaneously. SCREENINGS D Labs: Results for orders placed or performed during the hospital encounter of 09/30/24 Comprehensive metabolic panel Collection Time: 09/30/24 12:40 AM Result Value Ref Range SODIUM 141 136 - 145 mmol/L POTASSIUM 3.5 3.5 - 5.1 mmol/L CHLORIDE 108 (H) 98 - 107 mmol/L CARBON DIOXIDE 24 22 - 29 mmol/L ANION GAP 9 3 - 13 mmol/L UREA NITROGEN 18 9 - 23 mg/dL CREATININE 1.12 0.72 - 1.25 mg/dL GLUCOSE 146 (H) 74 - 100 mg/dL CALCIUM 8.8 8.4 - 10.2 mg/dL AST (SGOT) 25 <34 U/L ALT 30 <40 U/L ALKALINE PHOSPHATASE 116 40 - 150 U/L ALBUMIN 3.7 3.5 - 5.0 g/dL BILIRUBIN, TOTAL 0.3 <1.2 mg/dL TOTAL PROTEIN 7.1 6.4 - 8.3 g/dL eGFR 79.0 >60.0 mL/min/1.73m*2 C-reactive protein Collection Time: 09/30/24 12:40 AM Result Value Ref Range C REACTIVE PROTEIN 25.8 (H) <5.0 mg/L Sedimentation rate, automated Collection Time: 09/30/24 12:40 AM Result Value Ref Range Sed Rate 14 (H) 0 - 10 mm/hr CBC auto differential Collection Time: 09/30/24 12:40 AM Result Value Ref Range Auto WBC 8.4 3.6 - 10.7 10*3/uL RBC 4.53 4.40 - 5.90 10*6/uL Hemoglobin 13.1 13.0 - 18.0 g/dL Hematocrit 39.3 (L) 40.0 - 52.0 % MCV 86.8 77.0 - 99.0 fL MCH 28.9 26.0 - 34.0 pg MCHC 33.3 30.5 - 36.0 % RDW 13.7 11.5 - 15.0 % Platelets 310 140 - 440 10*3/uL MPV 10.1 9.0 - 12.7 fL nRBC 0.0 0.0 - 2.0 /100 WBCs Neutrophils Relative 48.3 38.0 - 82.0 % Lymphocytes Relative 36.8 15.0 - 45.0 % Monocytes Relative 11.2 5.0 - 13.0 % Eosinophils Relative 2.3 0.0 - 6.0 % Basophils Relative 0.9 0.0 - 2.0 % Immature Grans % 0.5 0.0 - 2.0 % Neutrophils Absolute 4.1 1.8 - 7.5 10*3/uL Lymphocytes Absolute 3.1 1.0 - 4.3 10*3/uL Monocytes Absolute 0.9 0.0 - 0.9 10*3/uL Eosinophils Absolute 0.2 0.0 - 0.5 10*3/uL Basophils Absolute 0.1 0.0 - 0.2 10*3/uL Immature Grans Absolute 0.0 <0.1 10*3/uL Radiographs: XR elbow 3+ views left Final Result Probable small elbow effusion. No acute osseous abnormality of the left elbow. MRI or aspiration could be considered for further evaluation as clinically warranted. Report Dictated on Electronically Signed By: Emerson Peña DR Electronically Signed Date/Time: 09/30/2024 1:34 AM EST : EKG: All EKG's areinterpreted by the Emergency Department Physician in the absence of a loan inspector. see their note for interpretation of EKG. EMERGENCY DEPARTMENT COURSE and DIFFERENTIAL DIAGNOSIS/MDM: External Records Review: Reviewed Care Everywhere. Social Determinants of Health: none. Laura Stephens is a 54 y.o. male who presented to the emergency department for left elbow swelling for 5 days. Differential diagnosis included septic arthritis, gout, cellulitis. Our workup consisted of ordering/reviewing CBC, CMP, sed rate, CRP, x-ray left (more content not included)... Normal [facility] Emergency Department Summary on 09-29-2024 Emergency Department Summary [facility] Medical Records Department [address] [place] [id number] Emergency Department Summary 09/29/24 MR#: [id number] Acct: [id number] Name: LAURA STEPHENS Rep #: [id number] : 1970 54 From: Gianni Hernandez DO PCP: Dr. Denys Cuello MD Status:DEP ER Location: ED HPI History of Present Illness Chief Complaint: Upper Extremity Injury Narrative Narrative: Chief complaint and HPI: Left elbow pain. 54-year-old male with past medical history of HTN, HLD, CAD, depression and anxiety presents for evaluation of left elbow pain. Patient states he developed pain in his left elbow approximately 5 days ago. He states since then the pain has worsened. Pain is worse with movement. He endorses swelling and redness to the elbow. Patient denies any trauma or injury. Denies any IV drug abuse. Endorses decreased appetite and last ate yesterday. Not on blood thinners. History of gout but states this feels different. Patient went to urgent care and they sent him here for concern for septic arthritis. Review of systems: See HPI Medications: As listed on the chart Allergies: As listed on the chart PFSH: Per chart Vital signs: As listed on the chart. Reviewed. Physical exam: Gen: A O x3, NAD Head: Normocephalic, atraumatic Eyes: No sclera icterus, conjunctiva clear ENT: Moist mucous membranes CV: RRR, no murmurs Resp: Lungs CTA BL, no w/r/c Musc: Limited active and passive range of motion secondary to pain in the left elbow, left elbow is swollen/erythematous/ warm, compartments soft, good capillary refill, radial/ulnar pulses plus 2 out of 4 Neuro: Alert, oriented, grossly intact, sensation intact Psych: Cooperative, appropriate mood and affect [facility] Medical History Gout Wears glasses History of steroid therapy High cholesterol History of heart attack Former smoker History of echocardiogram Cardiology follow-up encounter BPH (benign prostatic hyperplasia) GI bleed Borderline type 2 diabetes mellitus Bilateral shoulder pain Essential hypertension 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 Multi-vessel coronary artery stenosis (11/08/22) Alcohol abuse Tobacco abuse 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 Home Medications ???Medication ???Instructions ???Recorded ???Last Taken ???Type acetaminophen 325 mg tablet 650 mg PO Q4H PRN Pain 11/21/22 Unknown History aspirin 81 mg chewable tablet 81 mg PO DAILY 11/21/22 03/24/23 History (Alyse Chewable Low Dose Aspirin) cholecalciferol (vitamin D3) 10 10 mcg PO DAILY 09/19/23 Unknown History mcg (400 unit) capsule alprazolam 0.25 mg tablet (Xanax) 0.25 mg PO DAILY PRN anxiety #5 10/10/23 Unknown Rx tabs atorvastatin 80 mg tablet 40 mg (1/2 x 80 mg) PO QHS #90 tabs 04/21/24 Unknown Rx metoprolol tartrate 25 mg tablet 12.5 mg (1/2 x 25 mg) PO BID #90 04/21/24 Unknown Rx tabs sertraline 150 mg capsule 150 mg PO QDAY #30 caps 09/17/24 Unknown Rx Allergy/AdvReac Type Severity Reaction Status Date / Time No Known Allergies Allergy Verified 07/24/24 14:20 Family History Grandmother Breast cancer Father Prostate cancer Skin cancer CAD (coronary artery disease) Mother Hypertension High cholesterol Grandfather CAD (coronary artery disease) Surgical History History of cardiac catheterization History of coronary artery bypass surgery ( 11/13/22) Social History (Updated 07/24/24 @ 14:[address] 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 Smoking Status: Current every day smoker tobacco type: e-cigarettes Electronic Cigarette Use: with nicotine alcohol intake: current alcohol intake frequency: 3 or more drinks per day Alcohol type: beer substance use type: does not use what type of physical activity do you participate in: none EXAM Physical Exam Const Vital Signs: 09/29/24 16:56 Temperature 98.4 F Temperature Source Temporal Pulse Rate 99 Respiratory Rate 18 Blood Pressure 144/102 H Blood Pressure Mean 116 Pulse Ox 99 Oxygen Delivery Method Room Air MDM MDM MDM Narrative Medical decision making narrative: 54-year-old male with past medical history of HTN, HLD, CAD, depression, and anxiety presents for evaluation of left elbow pain. Patient's left elbow is swollen, erythematous, warm, tender. Limited in passive and active range of motion. Concern is for septic arthritis. Differential diagnosis also includes gout, bursitis, cellulitis. Patient does not follow with an orthopedic surgeon. We do not have orthopedic surgery on-call. Patient was made aware of this as well (more content not included)... Normal [facility] Cardiology Visit Reporton Cardiology Visit Report [facility] [address] [place] [address]. [address] [place] [address] OFFICE VISIT Date of Service: 07/24/24 MR#: [id number] Acct: [id number] Name: ANGELO,LAURA A Rep #: [id number] : 1970 Provider: Dr. Lalito meneses MD Age/Sex: 54/M Location: [facility] Status: Signed HPI [facility] History of Present Illness Details: Patient is a 53-year-old white male comes in for cardiovascular monitoring. Patient underwent coronary bypass graft surgery October 2022 receiving a SNOWDEN to the LAD and a vein graft to the OM1 branch of the circumflex at [facility]. The patient's had myalgias on statin which were required to be Deak decreased he also has a history of hyperglycemia and his sugars have been under a little better control by his report. He also has a history of hypertension his blood pressure is well- controlled in the office today. He was last evaluated in office in April 2024 and at that time was complaining about some chest discomfort. He had had chest discomfort back in late 2022 and he underwent a normal exercise myocardial perfusion stress test at a moderate workload October 2023. The chest discomfort that he is having now is not anything like what he had prior to his bypass graft surgery that was his angina. This is more of an ache it is random is not predictable and is in the upper sternal area. Patient's ejection fraction was 60% at the time of his cath in October 2022 and well-preserved on the stress test October 2023. 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: No Accompanied by: Self Is patient in pain?: No Allergies No Known Allergies Allergy (Verified 07/24/24 14:20) Medications ???Medication ???Instructions ???Recorded ???Confirmed ???Type acetaminophen 325 mg tablet 650 mg PO Q4H PRN Pain 11/21/22 07/24/24 History aspirin 81 mg chewable tablet 81 mg PO DAILY 11/21/22 07/24/24 History (Alyse Chewable Low Dose Aspirin) cholecalciferol (vitamin D3) 10 10 mcg PO DAILY 09/19/23 07/24/24 History mcg (400 unit) capsule alprazolam 0.25 mg tablet (Xanax) 0.25 mg PO DAILY PRN anxiety #5 10/10/23 07/24/24 Rx tabs atorvastatin 80 mg tablet 40 mg (1/2 x 80 mg) PO QHS #90 tabs 04/21/24 07/24/24 Rx metoprolol tartrate 25 mg tablet 12.5 mg (1/2 x 25 mg) PO BID #90 04/21/24 07/24/24 Rx tabs sertraline 150 mg capsule 150 mg PO QDAY #30 caps 07/07/24 07/24/24 Rx Ejection fraction %: 60 Have you fallen in the past year?: No PFSH Medical History Gout Wears glasses History of steroid therapy High cholesterol History of heart attack Former smoker History of echocardiogram Cardiology follow-up encounter BPH (benign prostatic hyperplasia) GI bleed Borderline type 2 diabetes mellitus Bilateral shoulder pain Essential hypertension 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 Lalito Zamora MD) current occupational status: employed current occupation: [employer] Smoking Status: Former smoker Electronic Cigarette Use: with nicotine alcohol intake: current alcohol intake frequency: 3 or more drinks per day Alcohol type: beer substance use type: does not use what type of physical activity do you participate in: none ROS ENT ENT: Negative for dizziness Cardio Chest Pain: Yes Frequency: monthly Character: dull Onset: at rest Location: other (Upper sternal area.) Duration: minutes Exacerbation: rest Relieving: rest Palpitations: No Edema: None Resp Respiratory: Positive for SOB with activity; Negative for SOB at rest or SOB orthopnea SOB lying down Neuro Neuro: Negative for dizziness Cardiology Exam Const Appearance: cooperative, comfortable, no acute distress and well developed (more content not included)... Normal [facility] CBC W Auto Differential pane l (Bld)on 07-15-2024 Basophils (Bld) [#/Vol] 0.06 10*3/uL [facility] Basophils/100 WBC (Bld) 0.6 % [facility] Differential cell count method Nom (Bld) Auto [facility] Eosinophils (Bld) [#/Vol] 0.14 10*3/uL [facility] Eosinophils/100 WBC (Bld) 1.4 % [facility] Erythrocyte distribution width (RBC) [Ratio] 13.7 % 11.5 - 15.0 % [facility] Hematocrit (Bld) [Volume fraction] 43.4 % 39.0 - 51.0 % [facility] Hemoglobin (Bld) [Mass/Vol] 14.6 g/dL 13.0 - 17.0 g/dL [facility] Immature granulocytes (Bld) [#/Vol] 0.04 10*3/uL [facility] [facility] Immature granulocytes/100 WBC (Bld) 0.4 % [facility] Interpretation and review of laboratory results Abnormal [facility] Lymphocytes (Bld) [#/Vol] 3.32 10*3/uL [facility] Lymphocytes/100 WBC (Bld) 33.7 % [facility] MCH (RBC) [Entitic mass] 28.9 pg 26.0 - 34.0 pg [facility] MCHC (RBC) [Mass/Vol] 33.6 g/dL 30.5 - 36.0 g/dL [facility] MCV (RBC) [Entitic vol] 85.9 fL 80.0 - 100.0 fL [facility] Monocytes (Bld) [#/Vol] 0.87 10*3/uL High [facility] Monocytes/100 WBC (Bld) 8.8 % [facility] Neutrophils (Bld) [#/Vol] 5.41 10*3/uL [facility] Neutrophils/100 WBC (Bld) 55.1 % [facility] Nucleated RBC (Bld) [#/Vol] [facility] Nucleated RBC/100 WBC (Bld) [Ratio] 0.0 % /100 WBC [facility] Platelet mean volume (Bld) [Entitic vol] 10.3 fL 9.0 - 12.7 fL [facility] Platelets (Bld) [#/Vol] 274 10*3/uL [facility] RBC (Bld) [#/Vol] 5.05 10*6/uL 4.20 - 6.0 0 m/uL [facility] WBC (Bld) [#/Vol] 9.84 10*3/uL [facility] Basophils (Bld) [#/Vol] 0.06 10*3/uL Normal <0.11 [facility] Comment on above: Order Comment: Speci men Type: BLOOD SPECIMEN Ordering Facility: [facility] Address: [address] [place] [address] Performed By: #### 5 7021-8 #### [facility] CLIA [id number] [address] [place] [address] [place] Basophils/100 WBC (Bld) 0.6 % Normal [facility] Comment on above: Order Comment: Speci men Type: BLOOD SPECIMEN Ordering Facility: [facility] Address: [address] [place] [address] Performed By: #### 5 7021-8 #### [facility] CLIA [id number] [address] [place] [address] [place] Differential cell count method Nom (Bld) Auto Normal [facility] Comment on above: Order Comment: Speci men Type: BLOOD SPECIMEN Ordering Facility: [facility] Address: [address] [place] [address] Performed By: #### 5 7021-8 #### [facility] CLIA [id number] [address] [place] [address] [place] Eosinophils (Bld) [#/Vol] 0.14 10*3/uL Normal <0.46 [facility] Comment on above: Order Comment: Speci men Type: BLOOD SPECIMEN Ordering Facility: [facility] Address: [address] [place] [address] Performed By: #### 5 7021-8 #### [facility] CLIA [id number] [address] [place] [address] [place] Eosinophils/100 WBC (Bld) 1.4 % Normal [facility] Comment on above: Order Comment: Speci men Type: BLOOD SPECIMEN Ordering Facility: [facility] Address: [address] [place] [address] Performed By: #### 5 7021-8 #### [facility] CLIA [id number] [address] [place] [address] [place] Erythrocyte distribution width (RBC) [Ratio] 13.7 % Normal 11.5-15.0 [facility] Comment on above: Order Comment: Speci men Type: BLOOD SPECIMEN Ordering Facility: [facility] Address: [address] [place] [address] Performed By: #### 5 7021-8 #### [facility] CLIA [id number] [address] [place] [address] [place] Hematocrit (Bld) [Volume fraction] 43.4 % Normal 39.0-51.0 [facility] Comment on above: Order Comment: Speci men Type: BLOOD SPECIMEN Ordering Facility: [facility] Address: [address] [place] [address] Performed By: #### 5 7021-8 #### [facility] CLIA [id number] [address] [place] [address] [place] Hemoglobin (Bld) [Mass/Vol] 14.6 g/dL Normal 13.0-17.0 [facility] Comment on above: Order Comment: Speci men Type: BLOOD SPECIMEN Ordering Facility: [facility] Address: [address] [place] [address] Performed By: #### 5 7021-8 #### [facility] CLIA [id number] [address] [place] [address] [place] Immature granulocytes (Bld) [#/Vol] 0.04 10*3/uL Normal <0.10 [facility] Comment on above: Order Comment: Speci men Type: BLOOD SPECIMEN Ordering Facility: [facility] Address: [address] [place] [address] Performed By: #### 5 7021-8 #### [facility] CLIA [id number] [address] [place] [address] [place] Immature granulocytes/100 WBC (Bld) 0.4 % Normal [facility] Comment on above: Order Comment: Speci men Type: BLOOD SPECIMEN Ordering Facility: [facility] Address: [address] [place] [address] Performed By: #### 5 7021-8 #### [facility] [id number] [address] [place] [address] [place] Lymphocytes (Bld) [#/Vol] 3.32 10*3/uL Normal 1.00-4.00 [facility] Comment on above: Order Comment: Speci men Type: BLOOD SPECIMEN Ordering Facility: [facility] Address: [address] [place] [address] Performed By: #### 5 7021-8 #### [facility] [id number] [address] [place] [address] [place] Lymphocytes/100 WBC (Bld) 33.7 % Normal [facility] Comment on above: Order Comment: Speci men Type: BLOOD SPECIMEN Ordering Facility: [facility] Address: [address] [place] [address] Performed By: #### 5 7021-8 #### [facility] [id number] [address] [place] [address] [place] MCH (RBC) [Entitic mass] 28.9 pg Normal 26.0-34.0 [facility] Comment on above: Order Comment: Speci men Type: BLOOD SPECIMEN Ordering Facility: [facility] Address: [address] [place] [address] Performed By: #### 5 7021-8 #### [facility] CLIA [id number] [address] [place] [address] [place] MCHC (RBC) [Mass/Vol] 33.6 g/dL Normal 30.5-36.0 [facility] Comment on above: Order Comment: Speci men Type: BLOOD SPECIMEN Ordering Facility: [facility] Address: [address] [place] [address] Performed By: #### 5 7021-8 #### [facility] CLIA [id number] [address] [place] [address] [place] MCV (RBC) [Entitic vol] 85.9 fL Normal 80.0-100.0 [facility] Comment on above: Order Comment: Speci men Type: BLOOD SPECIMEN Ordering Facility: [facility] Address: [address] [place] [address] Performed By: #### 5 7021-8 #### [facility] CLIA [id number] [address] [place] [address] [place] Monocytes (Bld) [#/Vol] 0.87 10*3/uL High <0.87 [facility] Comment on above: Order Comment: Speci men Type: BLOOD SPECIMEN Ordering Facility: [facility] Address: [address] [place] [address] Performed By: #### 5 7021-8 #### [facility] CLIA [id number] [address] [place] [address] [place] Monocytes/100 WBC (Bld) 8.8 % Normal [facility] Comment on above: Order Comment: Speci men Type: BLOOD SPECIMEN Ordering Facility: [facility] Address: [address] [place] [address] Performed By: #### 5 7021-8 #### [facility] CLIA [id number] [address] [place] [address] [place] Neutrophils (Bld) [#/Vol] 5.41 10*3/uL Normal 1.45-7.50 [facility] Comment on above: Order Comment: Speci men Type: BLOOD SPECIMEN Ordering Facility: [facility] Address: [address] [place] [address] Performed By: #### 5 7021-8 #### [facility] CLIA [id number] [address] [place] [address] [place] Neutrophils/100 WBC (Bld) 55.1 % Normal [facility] Comment on above: Order Comment: Speci men Type: BLOOD SPECIMEN Ordering Facility: [facility] Address: [address] [place] [address] Performed By: #### 5 7021-8 #### [facility] [id number] [address] [place] [address] [place] Nucleated RBC (Bld) [#/Vol] 10*3/uL Normal <0.01 [facility] Comment on above: Order Comment: Speci men Type: BLOOD SPECIMEN Ordering Facility: [facility] Address: [address] [place] [address] Performed By: #### 5 7021-8 #### [facility] [id number] [address] [place] [address] [place] Nucleated RBC/100 WBC (Bld) [Ratio] 0.0 /100 WBC Normal [facility] Comment on above: Order Comment: Speci men Type: BLOOD SPECIMEN Ordering Facility: [facility] Address: [address] [place] [address] Performed By: #### 5 7021-8 #### [facility] [id number] [address] [place] [address] [place] Platelet mean volume (Bld) [Entitic vol] 10.3 fL Normal 9.0-12.7 [facility] Comment on above: Order Comment: Speci men Type: BLOOD SPECIMEN Ordering Facility: [facility] Address: [address] [place] [address] Performed By: #### 5 7021-8 #### [facility] CLIA [id number] [address] [place] [address] [place] Platelets (Bld) [#/Vol] 274 10*3/uL Normal 150-400 [facility] Comment on above: Order Comment: Speci men Type: BLOOD SPECIMEN Ordering Facility: [facility] Address: [address] [place] [address] Performed By: #### 5 7021-8 #### [facility] CLIA [id number] [address] [place] [address] [place] RBC (Bld) [#/Vol] 5.05 10*6/uL Normal 4.20-6.00 [facility] Comment on above: Order Comment: Speci men Type: BLOOD SPECIMEN Ordering Facility: [facility] Address: [address] [place] [address] Performed By: #### 5 7021-8 #### [facility] CLIA [id number] [address] [place] [address] [place] WBC (Bld) [#/Vol] 9.84 10*3/uL Normal 3.70-11.00 [facility] Comment on above: Order Comment: Speci men Type: BLOOD SPECIMEN Ordering Facility: [facility] Address: [address] [place] [address] Performed By: #### 5 7021-8 #### [facility] CLIA [id number] [address] [place] [address] OF [place] CNOVon 07-15-2024 CNOV Office Visit ([facility] ) LAURA STEPHENS ([id number]) 1970 M Date Time Provider Department 07/15/24 1:30 PM PENNY SOTO During your visit today, we recorded the following information about you: Temperature Pulse Respiration Blood pressure 98 degrees 82/minute 16/minute 112/78 Weight 101.9 kg Penny Soto APRN.CNP 07/15/2024 2:32 PM Signed This note was created using NoteWriter. Subjective Laura Stephens is a 54 year old male. 54 year old male with PMH CAD, CABG, HTN presents for foot pain. Acute onset 3 days ago Left foot, lateral aspect Sharp Only pain with weight bearing. States he has no pain at rest. Denies skin rash or lesions. Denies erythema Denies numbness or tingling Denies weakness Denies known trauma or injury Endorses that he was working in garage, moving stuff and cleaning up Has had similar occurrence in past, citing about a year ago Endorses bilateral feet at that time States he was provided a steroid I don't remember what they said it was The history is provided by the patient. No geotechnical laboratory technician was used. Pain (foot) Pain location: left lateral foot. This is a new problem. The current episode started in the past 7 days. There has been no history of extremity trauma. The problem occurs constantly. The problem has been unchanged. The quality of the pain is described as sharp. The pain is at a severity of 5/10. The pain is moderate. Pertinent negatives include no fever, inability to bear weight, itching, joint locking, joint swelling, limited range of motion, numbness, stiffness or tingling. The symptoms are aggravated by standing. He has tried nothing for the symptoms. The treatment provided no relief. Family history does not include gout or rheumatoid arthritis. There is no history of diabetes, gout, osteoarthritis or rheumatoid arthritis. History reviewed. No pertinent past medical history. PAST SURGICAL HISTORY Procedure Laterality Date NONE ALLERGIES Patient has no known allergies. MEDICATIONS sertraline (ZOLOFT) 100 mg tablet take 1 and ONE-HALF tablets BY MOUTH ONCE DAILY acetaminophen (TYLENOL) 325 mg tablet Take 650 mg by mouth every 4 hours as needed. aspirin 81 mg chewable tablet Take 1 tablet by mouth once daily. atorvastatin (LIPITOR) 80 mg tablet metoprolol tartrate, short acting, (LOPRESSOR) 25 mg tablet clopidogrel (PLAVIX) 75 mg tablet (Patient not taking: Reported on 07/15/2024) melatonin 3 mg tablet Take 6 mg by mouth. (Patient not taking: Reported on 07/15/2024) hydrocortisone (ANUSOL-HC) 25 mg RECTAL suppository 1 Suppository by RECTAL route twice daily as needed (hemorrhoids/rectal pain). (Patient not taking: Reported on 05/01/2023) psyllium Husk 0.52 g ORAL capsule Take 1 capsule by mouth once daily. (Patient not taking: Reported on 05/01/2023) FAMILY HISTORY Problem Relation Age of Onset Hypertension Mother Prostate Cancer Father 64 Diabetes Maternal Grandmother Heart Maternal Grandfather Social History Tobacco Use Smoking status: Every Day Current packs/day: 1.00 Average packs/day: 1 pack/day for 20.0 years (20.0 ttl pk-yrs) Types: Cigarettes Smokeless tobacco: Never Substance Use Topics Alcohol use: Yes Alcohol/week: 40.0 standard drinks of alcohol Types: 40 Cans of Beer (12oz) per week Drug use: No Review of Systems Constitutional: Negative for chills and fever. Respiratory: Negative for apnea, choking and chest tightness. Cardiovascular: Negative for chest pain and leg swelling. Gastrointestinal: Negative for abdominal pain, diarrhea, nausea and vomiting. Musculoskeletal: Negative for arthralgias, back pain, gait problem, gout and stiffness. Left foot pain Skin: Negative for color change, itching, pallor and rash. Neurological: Negative for tingling and numbness. Hematological: Negative for adenopathy. Does not bruise/bleed easily. Psychiatric/Behaviora l: Negative for agitation and behavioral problems. Objective BP 112/78 Pulse 82 Temp 36.7 ?C (98 ?F) (Tympanic) Resp 16 Wt 101.9 kg (224 lb 10.4 oz) SpO2 98% Physical Exam Vitals and nursing note reviewed. Constitutional: General: He is not in acute distress. Appearance: Normal appearance. He is not ill-appearing, toxic-appearing or diaphoretic. HENT: Head: Normocephalic and atraumatic. Right Ear: External ear normal. Left Ear: External ear normal. Nose: Nose normal. No congestion or rhinorrhea. Mouth/Throat: Mouth: Mucous membranes are moist. Pharynx: Oropharynx is clear. No oropharyngeal exudate or posterior oropharyngeal erythema. Eyes: General: Right eye: No discharge. Left eye: No discharge. Extraocular Movements: Extraocular movements intact. Conjunctiva/sclera: Conjunctivae normal. Pupils: Pupils are equal, round, and reactive to light. Cardiovascular: Rate and Rhythm: Normal (more content not included)... Normal [facility] LAURA STEPHENS ([id number]) 1970 M Date Time Provider Department 07/15/24 PENNY SOTO [facility] During your visit today, we recorded the following information about you: Penny Soto APRN.CNP 07/15/2024 2:45 PM Signed CBC normal Penny Soto APRN.CNP 07/15/2024 4:02 PM Signed Uric acid returns with level of 10.3 CMP returns with blood sugar of 108 Discussed etiology and sx management related to gout. Avoid trigger foods F/U with PCP Allergies As of Date: 07/15/2024 (No Known Allergies) Date Reviewed: 07/15/2024 Reviewed by: Maricruz Boyd LPN - Fully Assessed Reason for Visit: Results [95] Order(s):predniSONE (DELTASONE) 10 mg tabletTake 4 tabs daily for 3 days, then 2 tabs daily for 3 days, then 1 tab daily for 3 days with food.Disp: 21 tabletRfl: 0 Prescriptions as of 07/15/2024 - sertraline (ZOLOFT) 100 mg tablet take 1 and ONE-HALF tablets BY MOUTH ONCE DAILY - predniSONE (DELTASONE) 10 mg tablet Take 4 tabs daily for 3 days, then 2 tabs daily for 3 days, then 1 tab daily for 3 days with food. - acetaminophen (TYLENOL) 325 mg tablet Take 650 mg by mouth every 4 hours as needed. - aspirin 81 mg chewable tablet Take 1 tablet by mouth once daily. - atorvastatin (LIPITOR) 80 mg tablet - clopidogrel (PLAVIX) 75 mg tablet - melatonin 3 mg tablet Take 6 mg by mouth. - metoprolol tartrate, short acting, (LOPRESSOR) 25 mg tablet - hydrocortisone (ANUSOL-HC) 25 mg RECTAL suppository 1 Suppository by RECTAL route twice daily as needed (hemorrhoids/rectal pain). - psyllium Husk 0.52 g ORAL capsule Take 1 capsule by mouth once daily. Problem List As Of Date: 07/15/2024 (None) Prescriptions ordered this encounter Disp Refills Start End PREDNISONE 10 MG TABLET 21 t* 0 07/15/2024 Sig: Take 4 tabs daily for 3 days, then 2 tabs daily for 3 days, then 1 tab daily for 3 days with food. Encounter Status:Closed by PENNY SOTO on 07/15/24 Normal [facility] Comprehensive metabolic 2000 panelon 07-15-2024 Albumin [Mass/Vol] 4.7 g/dL 3.9 - 4.9 g/dL [facility] ALP [Catalytic activity/Vol] 112 U/L 38 - 113 U/L [facility] ALT [Catalytic activity/Vol] 21 U/L 10 - 54 U/L [facility] Anion gap [Moles/Vol] 13 mmol/L 8 - 15 mmol/L [facility] AST [Catalytic activity/Vol] 19 U/L 14 - 40 U/L [facility] Bilirubin [Mass/Vol] 0.4 mg/dL 0.2 - 1 .3 mg/dL [facility] Calcium [Mass/Vol] 9.7 mg/dL 8.5 - 10. 2 mg/dL [facility] Chloride [Moles/Vol] 104 mmol/L 98 - 10 7 mmol/L [facility] CO2 [Moles/Vol] 22 mmol/L 22 - 30 mmol/L [facility] Creatinine [Mass/Vol] 0.90 mg/dL 0.73 - 1.22 mg/dL [facility] GFR/1.73 sq M.predicted among non-blacks MDRD (S/P/Bld) [Vol rate/Area] 103 mL/min/{1.73_m2} - PINF [facility] Comment on above: Estimated Glomerular Filtration Rate (eGFR) is calculated using the 2020 CKD-EPI creatinine equation. This equation utilizes serum creatinine, sex, and age as parameters. The creatinine assay has traceable calibration to isotope dilution-mass spectrometry. Refer to KDIGO guidelines for clinical interpretation. In patients with unstable renal function, e.g. those with acute kidney injury, the eGFR may not accurately reflect actual GFR. Glucose [Mass/Vol] 112 mg/dL High 74 - 99 mg/dL [facility] Comment on above: The [place] Diabete s Association (ADA) provides guidance for cutoff values for fasting glucose and random glucose. The ADA defines fasting as no caloric intake for at least 8 hours. Fasting plasma glucose results between 100 to 125 mg/dL indicate increased risk for diabetes (prediabetes). Fasting plasma glucose results greater than or equal to 126 mg/dL meet the criteria for diagnosis of diabetes. In the absence of unequivocal hyperglycemia, results should be confirmed by repeat testing. In a patient with classic symptoms of hyperglycemia or hyperglycemic crisis, random plasma glucose results greater than or equal to 200 mg/dL meet the criteria for diagnosis of diabetes. Reference: Standards of Medical Care in Diabetes 2016, [place] Diabetes Association. Diabetes Care. 2016.39(Suppl 1). Potassium [Moles/Vol] 4.3 mmol/L 3.7 - 5.1 mmol/L [facility] Protein [Mass/Vol] 7.8 g/dL 6.3 - 8.0 g/dL [facility] Sodium [Moles/Vol] 139 mmol/L 136 - 144 mmol/L [facility] Urea nitrogen [Mass/Vol] 18 mg/dL 9 - 24 mg/dL [facility] Albumin [Mass/Vol] 4.7 g/dL Normal 3.9-4.9 [facility] Comment on above: Order Comment: Speci men Type: BLOOD SPECIMEN Ordering Facility: [facility] Address: [facility] [place] [id number] Performed By: #### 3 084-1, 94183-3 #### [facility] CLIA [id number] [address] [place] [address] [place] ALP [Catalytic activity/Vol] 112 U/L Normal 38-113 [facility] Comment on above: Order Comment: Speci men Type: BLOOD SPECIMEN Ordering Facility: [facility] Address: [address] [place] [address] Performed By: #### 3 084-1, 24844-0 #### [facility] CLIA [id number] [address] [place] [address] [place] ALT [Catalytic activity/Vol] 21 U/L Normal 10-54 [facility] Comment on above: Order Comment: Speci men Type: BLOOD SPECIMEN Ordering Facility: [facility] Address: [address] [place] [address] Performed By: #### 3 084-1, 55861-9 #### [facility] CLIA [id number] [address] [place] [address] [place] Anion gap [Moles/Vol] 13 mmol/L Normal 8-15 [facility] Comment on above: Order Comment: Speci men Type: BLOOD SPECIMEN Ordering Facility: [facility] Address: [address] [place] [address] Performed By: #### 3 084-1, 24909-1 #### [facility] CLIA [id number] [address] [place] [address] [place] AST [Catalytic activity/Vol] 19 U/L Normal 14-40 [facility] Comment on above: Order Comment: Speci men Type: BLOOD SPECIMEN Ordering Facility: [facility] Address: [address] [place] [address] Performed By: #### 3 084-1, 95889-4 #### [facility] CLIA [id number] [address] [place] [address] [place] Bilirubin [Mass/Vol] 0.4 mg/dL Normal 0.2-1.3 [facility] Comment on above: Order Comment: Speci men Type: BLOOD SPECIMEN Ordering Facility: [facility] Address: [address] [place] [address] Performed By: #### 3 084-1, 89970-2 #### [facility] CLIA [id number] [address] [place] [address] [place] Calcium [Mass/Vol] 9.7 mg/dL Normal 8.5-10.2 [facility] Comment on above: Order Comment: Speci men Type: BLOOD SPECIMEN Ordering Facility: [facility] Address: [address] [place], [place] [address] Performed By: #### 3 084-1, 60360-4 #### [facility] CLIA [id number] [address] [place] [address] [place] Chloride [Moles/Vol] 104 mmol/L Normal 98-107 [facility] Comment on above: Order Comment: Speci men Type: BLOOD SPECIMEN Ordering Facility: [facility] Address: [address] [place], [place] [address] Performed By: #### 3 084-1, 05668-2 #### [facility] CLIA [id number] [address] [place] [address] [place] CO2 [Moles/Vol] 22 mmol/L Normal 22-30 [facility] Comment on above: Order Comment: Speci men Type: BLOOD SPECIMEN Ordering Facility: [facility] Address: [facility] [place] [id number] Performed By: #### 3 084-1, 00275-7 #### [facility] [facility] CLIA [id number] [address] [place] [address] [place] Creatinine [Mass/Vol] 0.90 mg/dL Normal 0.73-1.22 [facility] Comment on above: Order Comment: Speci men Type: BLOOD SPECIMEN Ordering Facility: [facility] Address: [address] [place], [place] [address] Performed By: #### 3 084-1, 20911-3 #### [facility] CLIA [id number] [address] [place] [address] [place] Creatinine and Glomerular filtration rate.predicted panel (S/P/Bld) 103 mL/min/1.73m??? Normal >=60 [facility] Comment on above: Order Comment: Ehsan arellano Type: BLOOD SPECIMEN Ordering Facility: [facility] Address: [address] [place] [address] Result Comment: Kaitlin mated Glomerular Filtration Rate (eGFR) is calculated using the 2020 CKD-EPI creatinine equation. This equation utilizes serum creatinine, sex, and age as parameters. The creatinine assay has traceable calibration to isotope dilution-mass spectrometry. Refer to KDIGO guidelines for clinical interpretation. In patients with unstable renal function, e.g. those with acute kidney injury, the eGFR may not accurately reflect actual GFR. Performed By: #### 3 084-1, 61129-4 #### [facility] [id number] [address] [place] [address] [place] Glucose [Mass/Vol] 112 mg/dL High 74-99 [facility] Comment on above: Order Comment: Ehsan arellano Type: BLOOD SPECIMEN Ordering Facility: [facility] Address: [address] [place] [address] Result Comment: The [place] Diabetes Association (ADA) provides guidance for cutoff values for fasting glucose and random glucose. The ADA defines fasting as no caloric intake for at least 8 hours. Fasting plasma glucose results between 100 to 125 mg/dL indicate increased risk for diabetes (prediabetes). Fasting plasma glucose results greater than or equal to 126 mg/dL meet the criteria for diagnosis of diabetes. In the absence of unequivocal hyperglycemia, results should be confirmed by repeat testing. In a patient with classic symptoms of hyperglycemia or hyperglycemic crisis, random plasma glucose results greater than or equal to 200 mg/dL meet the criteria for diagnosis of diabetes. Reference: Standards of Medical Care in Diabetes 2016, [place] Diabetes Association. Diabetes Care. 2016.39(Suppl 1). Performed By: #### 3 084-1, 12452-5 #### [facility] [id number] [address] [place] [address] [place] Potassium [Moles/Vol] 4.3 mmol/L Normal 3.7-5.1 [facility] Comment on above: Order Comment: Speci men Type: BLOOD SPECIMEN Ordering Facility: [facility] Address: [address] [place], [place] [address] Performed By: #### 3 084-1, 94769-1 #### [facility] CLIA [id number] [address] [place] [address] [place] Protein [Mass/Vol] 7.8 g/dL Normal 6.3-8.0 [facility] Comment on above: Order Comment: Speci men Type: BLOOD SPECIMEN Ordering Facility: [facility] Address: [address] [place] [address] Performed By: #### 3 084-1, 93445-2 #### [facility] CLIA [id number] [address] [place] [address] [place] Sodium [Moles/Vol] 139 mmol/L Normal 136-144 [facility] Comment on above: Order Comment: Speci men Type: BLOOD SPECIMEN Ordering Facility: [facility] Address: [address] [place] [address] Performed By: #### 3 084-1, 32231-5 #### [facility] CLIA [id number] [address] [place] [address] [place] Urea nitrogen [Mass/Vol] 18 mg/dL Normal 9-24 [facility] Comment on above: Order Comment: Speci men Type: BLOOD SPECIMEN Ordering Facility: [facility] Address: [address] [place] [address] Performed By: #### 3 084-1, 12203-9 #### [facility] CLIA [id number] [address] [place] [address] [place] No Panel InformationOrdered By: Natty Quinonez on 07-15-2024 Interpretation and review of laboratory results Abnormal [facility] URIC ACIDOrdered By: Natty moy on 07-15-2024 Urate [Mass/Vol] 10.3 mg/dL High 4.0 - 8.1 mg/dL [facility] Urate SerPl-mCncon Urate [Mass/Vol] 10.3 mg/dL High 4.0-8.1 Abi jimenez [facility] Comment on above: Order Comment: Speci men Type: BLOOD SPECIMEN Ordering Facility: [facility] Address: [facility] [place] [address] Performed By: #### 3 084-1, 37083-3 #### [facility] CLIA [id number] [address] [place] [address] OF [facility] XR FOOT 3V AP/LAT/OBL LTon 1 XR FOOT 3V AP/LAT/OBL LT * * *Final Report* * * DATE OF EXAM: Jul 15 2024 2:04PM WOX [id number] - XR FOOT 3V AP/LAT/OBL LT / PROCEDURE REASON: Foot pain, left * * * * Physician Interpretation * * * * EXAM TITLE: XR FOOT 3V AP/LAT/OBL LT EXAM DATE/TIME: 07/15/2024 2:04 PM COMPARISON: None CLINICAL INDICATION/HISTORY: Lateral foot pain. TECHNIQUE: AP, lateral and oblique views of the left foot are presented. FINDINGS: No acute fractures or subluxations are noted. There appears be a 1 cm cystic component in the talus, nonspecific. The joint spaces are well preserved. The mineralization of the bones is normal. There is no significant soft tissue swelling. IMPRESSION: No acute radiographic abnormalities seen in the left foot. [employer] Driver: SUMMER Transcribe Date/Time: Jul 15 2024 2:12P Dictated by : MANOJ AGUILAR MD This examination was interpreted and the report reviewed and electronically signed by: MANOJ AGUILAR MD on Jul 15 2024 2:22PM EST [id number] Normal [facility] XR Foot - left AP and Latera l and obliqueon 07-15-2024 IMPRESSION: No acute radiographic abnormalities seen in the left foot. [employer] Driver: PSCB Transcribe Date/Time: Jul 15 2024 2:12P Dictated by : MANOJ AGUILAR MD This examination was interpreted and the report reviewed and electronically signed by: MANJO AGUILAR MD on Jul 15 2024 2:22PM [facility] DIV[facility] OF [facility] * * *Final Report* * * DATE OF EXAM: Jul 15 2024 2:04PM WOX 5336 - XR FOOT 3V AP/LAT/OBL LT / PROCEDURE REASON: Foot pain, left * * * * Physician Interpretation * * * * EXAM TITLE: XR FOOT 3V AP/LAT/OBL LT EXAM DATE/TIME: 07/15/2024 2:04 PM COMPARISON: None CLINICAL INDICATION/HISTORY: Lateral foot pain. TECHNIQUE: AP, lateral and oblique views of the left foot are presented. FINDINGS: No acute fractures or subluxations are noted. There appears be a 1 cm cystic component in the talus, nonspecific. The joint spaces are well preserved. The mineralization of the bones is normal. There is no significant soft tissue swelling. DIVISION OF RADIOLOGY Provider, [facility] - 07/15/2024 * * *Final Report* * * DATE OF EXAM: Jul 15 2024 2:04PM WOX 5336 - XR FOOT 3V AP/LAT/OBL LT / PROCEDURE REASON: Foot pain, left * * * * Physician Interpretation * * * * EXAM TITLE: XR FOOT 3V AP/LAT/OBL LT EXAM DATE/TIME: 07/15/2024 2:04 PM COMPARISON: None CLINICAL INDICATION/HISTORY: Lateral foot pain. TECHNIQUE: AP, lateral and oblique views of the left foot are presented. FINDINGS: No acute fractures or subluxations are noted. There appears be a 1 cm cystic component in the talus, nonspecific. The joint spaces are well preserved. The mineralization of the bones is normal. There is no significant soft tissue swelling. IMPRESSION IMPRESSION: No acute radiographic abnormalities seen in the left foot. [employer] Driver: SUMMER Transcribe Date/Time: Jul 15 2024 2:12P Dictated by : MANOJ AGUILAR MD This examination was interpreted and the report reviewed and electronically signed by: MANOJ AGUILAR MD on Jul 15 2024 2:22PM [facility] Study observation (narrative) [facility] XR Foot - left AP and Latera l and obliqueOrdered By: Ccf Provider on 07-15-2024 [facility] Absolute lymphocyte countOrd ered By: Charla Dunn on 08-30-2023 Lymphocytes Auto (Unsp spec) [#/Vol] 2.90 10*3/uL 0.83-4.51 [facility] Basophil percentageOrdered B y: Charla Dunn on 08-30-2023 Basophils/100 WBC (Bld) 0.9 % 0-1 [facility] Chloride [Moles/Vol] 111 mmol/L 98-107 [facility] Eosinophils/100 WBC (Bld) 1.5 % 0-5 [facility] Glucose [Mass/Vol] 115 mg/dL 74-106 [facility] Comment on above: Fasting Glucose resu lt from 100 to 125 mg/dL suggests IMPAIRED HOMEOSTASIS per A.D.A. criteria. Neutrophils (Bld) [#/Vol] 4.2 10*3/uL 2.0-7.7 [facility] Neutrophils/100 WBC (Bld) 52.5 % 47-70 [facility] Potassium [Moles/Vol] 4.0 mmol/L 3.5-5.1 [facility] Sodium [Moles/Vol] 143 mmol/L 136-145 [facility] WBC (Bld) [#/Vol] 8.1 10*3/uL 4.4-11.0 [facility] Blood erythrocytes count (nu mber/volume)Ordered By: Charla Dunn on 08-30-2023 RBC (Bld) [#/Vol] 4.67 10*6/uL 4.6-6.2 [facility] Blood hemoglobin measurement (mass/volume)Ordered By: Charla Dunn on 08-30-2023 Hemoglobin (Bld) [Mass/Vol] 13.5 g/dL 13.0-16.5 [facility] Blood lymphocytes/100 leukoc ytesOrdered By: Charla Dunn on 08-30-2023 Lymphocytes/100 WBC (Bld) 35.9 % 19-41 [facility] Blood monocytes/100 leukocyt esOrdered By: Charla Dunn on 08-30-2023 Monocytes/100 WBC (Bld) 9.0 % 0-10 [facility] Blood platelet mean volumeOr dered By: Charla Dunn on 08-30-2023 Platelet mean volume (Bld) [Entitic vol] 10.2 fL 6.2-12.0 [facility] Determination of erythrocyte mean corpuscular volume (MCV)Ordered By: Charla Dunn on 08-30-2023 MCV (RBC) [Entitic vol] 89.1 fL 80-94 [facility] Hematocrit Auto (Bld) [Volum e fraction]Ordered By: Charla Dunn on 08-30-2023 Hematocrit (Bld) [Volume fraction] 41.6 % 40-54 [facility] Laboratory - Chemistry and C hemistry - challengeOrdered By: Charla Dunn on 08-30-2023 CO2 [Moles/Vol] 28.0 mmol/L 21.0-32.0 [facility] Urea nitrogen/Creatinine [Mass ratio] 18.5 mg/mg 10-20 [facility] Laboratory - Hematology and Cell countsOrdered By: Charla Dunn on 08-30-2023 Erythrocyte distribution width (RBC) [Entitic vol] 43.8 fL 35.1-43.9 [facility] Erythrocyte distribution width (RBC) [Ratio] 13.4 % 11.6-14.6 [facility] Immature granulocytes/100 WBC (Bld) 0.200 % 0.0-0.9 [facility] Comment on above: IG% - Immature Granu locytes (promyelocytes, myelocytes and metamyelocytes) > 1% indicates that a LEFT SHIFT is Present. MCH (RBC) [Entitic mass] 28.9 pg 27.0-32.0 [facility] Nucleated RBC/100 WBC (Bld) [Ratio] 0 % 0-5 [facility] MCHC Auto (RBC) [Mass/Vol]Or dered By: Charla Dunn on 08-30-2023 MCHC (RBC) [Mass/Vol] 32.5 g/dL 32-36 [facility] No Panel InformationOrdered By: Charla Dunn on 08-30-2023 Estimated GFR (MDRD) Amer 93 mL/min >60 [facility] Comment on above: GFR Calc Estimated GFR (MDRD) Non-Af Amer 77 mL/min >60 [facility] Comment on above: Non- GFR Calc Thyroid Stimulating Hormone (TSH) 1.20 uIU/mL 0.358-3.74 [facility] Platelets bldOrdered By: Uli Dunn on 08-30-2023 Platelets (Bld) [#/Vol] 245 10*3/uL 150-450 [facility] Serum or plasma calcitriol m easurement (mass/volume)Ordered By: Charla Dunn on 08-30-2023 1,25-dihydroxyvitamin D3 [Mass/Vol] 30.6 pg/mL 24.8-81.5 [facility] Comment on above: Performed at: [address] [id number] Director: Beth Huffman MD, Phone: [phone] Serum or plasma calcium jose urement (mass/volume)Ordered By: Charla Dunn on 08-30-2023 Calcium [Mass/Vol] 9.6 mg/dL 8.5-10.1 [facility] Serum or plasma creatinine m easurement (mass/volume)Ordered By: Charla Dunn on 08-30-2023 Creatinine [Mass/Vol] 1.08 mg/dL 0.70-1.30 [facility] Comment on above: The validity of the calculated GFR & GFRAA in patients over 70 years has not been determined. Clinical correlation is essential. Serum or plasma urea nitroge n measurement (mass/volume)Ordered By: Charla Dunn on 08-30-2023 Urea nitrogen [Mass/Vol] 20 mg/dL 7-18 [facility] Thin prep Papanicolaou smear with manual screeningOrdered By: Charla Dunn on 08-30-2023 Thin prep Papanicolaou smear with manual screening 4 5-15 [facility] XR ANKLE GENERAL 3V AP/LAT/O BL RIGHTon 05-01-2023 [facility] XR Ankle - right AP and Late ral and obliqueon 05-01-2023 IMPRESSION: No radiographic evidence of acute osseous abnormality [employer] Driver: PSCB Transcribe Date/Time: May 01 2023 1:20P Dictated by : PIERRE GOMES MD This examination was interpreted and the report reviewed and electronically signed by: PIERRE GOMES MD on May 01 2023 1:25PM [facility] DIV[facility] OF RAD[facility] * * *Final Report* * * DATE OF EXAM: May 01 2023 1:19PM WOX [id number] - XR ANKLE 3V AP/LAT/OBL RT / PROCEDURE REASON: Acute right ankle pain * * * * Physician Interpretation * * * * TITLE: XR ANKLE 3V AP/LAT/OBL RT CLINICAL INDICATION: Pain TECHNIQUE: 3 view radiographic study of the right ankle COMPARISON: None FINDINGS: No acute fracture or dislocation identified. Joint spaces preserved. DIVISION OF RADIOLOGY Provider, [facility] - 05/01/2023 * * *Final Report* * * DATE OF EXAM: May 01 2023 1:19PM WOX 5297 - XR ANKLE 3V AP/LAT/OBL RT / PROCEDURE REASON: Acute right ankle pain * * * * Physician Interpretation * * * * TITLE: XR ANKLE 3V AP/LAT/OBL RT CLINICAL INDICATION: Pain TECHNIQUE: 3 view radiographic study of the right ankle COMPARISON: None FINDINGS: No acute fracture or dislocation identified. Joint spaces preserved. IMPRESSION IMPRESSION: No radiographic evidence of acute osseous abnormality Bookmobile Driver: [facility] Transcribe Date/Time: May 01 2023 1:20P Dictated by : PIERRE GOMES MD This examination was interpreted and the report reviewed and electronically signed by: PIERRE GOMES MD on May 01 2023 1:25PM EST [facility] Radiology Study observation (narrative) [facility] XR Ankle - right AP and Late ral and obliqueOrdered By: Ccf Provider on 05-01-2023 [facility] No Panel InformationOrdered By: Dr. Cuello on 02-05-2023 Prostate Specific Antigen Screen 0.53 ng/mL 0.00-4.00 [facility] Comment on above: This test was perfor med using the TPSA assay method for the[facility] chemistry system. Values obtained with differentassay methods cannot be used interchangably.When changing PSA assays in the course of monitoring apatient, additional sequential testing should be carriedout to confirm baseline values. Whole blood hemoglobin A1c/t otal hemoglobin ratio (mass fraction)Ordered By: Dr. Cuello on 02-05-2023 HbA1c (Bld) [Mass fraction] 5.7 % 3.8-5.6 [facility] Comment on above: Normal < 5.7 % Predi abetic 5.7 - 6.4 % Diabetic >or= 6.5 % Please note range changes. CHEM 6 (LYTES, BUN CREA)on 0 12-14-2022 Anion gap [Moles/Vol] 13 mmol/L Normal 7-17 [facility] Comment on above: Performed By: #### S CRSB #### [facility] (DEFAULT) [address] [place] [address] Chloride [Moles/Vol] 108 mmol/L Normal 98-108 [facility] Comment on above: Performed By: #### S CRSB #### [facility] (DEFAULT) [address] [place] [address] CO2 [Moles/Vol] 26 mmol/L Normal 21-31 [facility] Comment on above: Performed By: #### S CRSB #### [facility] (DEFAULT) [address] [place] [address] Creatinine [Mass/Vol] 1.16 mg/dL Normal 0.70-1.30 [facility] Comment on above: Performed By: #### S CRSB #### [facility] (DEFAULT) [address] [address] GFR/1.73 sq M.predicted among non-blacks MDRD (S/P/Bld) [Vol rate/Area] 77 mL/min/{1.73_m2} Normal >=60 [facility] Comment on above: Result Comment: Repo rted eGFR is based on the CKD-EPI 2020 equation using creatinine, age, and sex. Performed By: #### S CRSB #### [facility] (DEFAULT) [address] [address] Potassium [Moles/Vol] 4.3 mmol/L Normal 3.5-5.0 [facility] Comment on above: Performed By: #### S CRSB #### [facility] (DEFAULT) [address] [place] [address] Sodium [Moles/Vol] 143 mmol/L Normal 135-145 [facility] Comment on above: Performed By: #### S CRSB #### [facility] (DEFAULT) [address] [place] [address] Urea nitrogen [Mass/Vol] 25 mg/dL Normal 7-25 [facility] Comment on above: Performed By: #### S CRSB #### [facility] (DEFAULT) [address] [place] [address] Urea nitrogen/Creatinine [Mass ratio] 22 mg/mg Normal [facility] Comment on above: Performed By: #### S CRSB #### [facility] (DEFAULT) [address] [place] [address] XR CHEST PA AND LATERALon XR CHEST PA AND LATERAL EXAM: XR CHEST PA AND LATERAL, 12/14/2022 12:24 PM COMPARISON: November 17, 2022 CLINICAL INDICATIONS: s/p cardiac surgery RELEVANT CLINICAL HISTORY: Z98.890:Status post cardiac surgery FINDINGS: (Adequate technique) Implanted Devices: None Lungs: Suspect atelectatic changes at the left base. Pleural Spaces: Small left pleural effusion. No pneumothorax. Mediastinum and Sabine: Normal Cardiac silhouette and great vessels: Normal heart size. Unremarkable aorta. Chest Wall: Status post sternotomy. Rib deformity on the right is probably postoperative. IMPRESSION: Postop changes. Small left effusion. Normal [facility] XR Chest PA and Lateralon IMPRESSION: Postop changes. Small left effusion. OLOGY EXAM: XR CHEST PA AN D LATERAL, 12/14/2022 12:24 PM COMPARISON: November 17, 2022 CLINICAL INDICATIONS: s/p cardiac surgery RELEVANT CLINICAL HISTORY: Z98.890:Status post cardiac surgery FINDINGS: (Adequate technique) Implanted Devices: None Lungs: Suspect atelectatic changes at the left base. Pleural Spaces: Small left pleural effusion. No pneumothorax. Mediastinum and Sabine: Normal Cardiac silhouette and great vessels: Normal heart size. Unremarkable aorta. Chest Wall: Status post sternotomy. Rib deformity on the right is probably postoperative. RADIOLOGY Lamonte Marcus MD - 12/14/2022 EXAM: XR CHEST PA AND LATERAL, 12/14/2022 12:24 PM COMPARISON: November 17, 2022 CLINICAL INDICATIONS: s/p cardiac surgery RELEVANT CLINICAL HISTORY: Z98.890:Status post cardiac surgery FINDINGS: (Adequate technique) Implanted Devices: None Lungs: Suspect atelectatic changes at the left base. Pleural Spaces: Small left pleural effusion. No pneumothorax. Mediastinum and Sabine: Normal Cardiac silhouette and great vessels: Normal heart size. Unremarkable aorta. Chest Wall: Status post sternotomy. Rib deformity on the right is probably postoperative. IMPRESSION IMPRESSION: Postop changes. Small left effusion. [facility] Radiology Study observation (narrative) [facility] XR Chest PA and LateralOrder ed By: Lamonte Marcus on 12-14-2022 [facility] Work Phone: Absolute lymphocyte countOrd ered By: Dr. Cuello on 12-06-2022 Lymphocytes Auto (Unsp spec) [#/Vol] 2.58 10*3/uL 0.83-4.51 [facility] Basophil percentageOrdered B y: Dr. Cuello on 12-06-2022 Basophils/100 WBC (Bld) 1.1 % 0-1 [facility] Bilirubin [Mass/Vol] 0.60 mg/dL 0.20-1.00 [facility] Comment on above: For patients on eltr ombopag therapy, use of Dimension [place] TBIL is not recommended. Chloride [Moles/Vol] 108 mmol/L 98-107 [facility] Cholesterol [Mass/Vol] 117 mg/dL <[address] [facility] Comment on above: <200 mg/dL Desirable 200-240 mg/dL Borderline >240 mg/dL High Risk Eosinophils/100 WBC (Bld) 4.4 % 0-5 [facility] Glucose [Mass/Vol] 116 mg/dL 74-106 [facility] Comment on above: Fasting Glucose resu lt from 100 to 125 mg/dL suggests IMPAIRED HOMEOSTASIS per A.D.A. criteria. Neutrophils (Bld) [#/Vol] 4.7 10*3/uL 2.0-7.7 [facility] Neutrophils/100 WBC (Bld) 55.0 % 47-70 [facility] Potassium [Moles/Vol] 4.5 mmol/L 3.5-5.1 [facility] Protein [Mass/Vol] 7.6 g/dL 6.4-8.2 [facility] Sodium [Moles/Vol] 141 mmol/L 136-145 [facility] Triglyceride [Mass/Vol] 100 mg/dL <199 [facility] Comment on above: The drugs N-Acetylcy steine and Metamizole may falsely depress this assay.Serum Triglycerides Reference Interval Normal <150 mg/dL Borderline high 150 - 199 mg/dL High 200 - 499 mg/dL Very High > or = 500 mg/dL WBC (Bld) [#/Vol] 8.5 10*3/uL 4.4-11.0 [facility] Blood erythrocytes count (nu mber/volume)Ordered By: Dr. Cuello on 12-06-2022 RBC (Bld) [#/Vol] 3.89 10*6/uL 4.6-6.2 [facility] Blood hemoglobin measurement (mass/volume)Ordered By: Dr. Cuello on 12-06-2022 Hemoglobin (Bld) [Mass/Vol] 11.1 g/dL 13.0-16.5 [facility] Blood lymphocytes/100 leukoc ytesOrdered By: Dr. Cuello on 12-06-2022 Lymphocytes/100 WBC (Bld) 30.5 % 19-41 [facility] Blood monocytes/100 leukocyt esOrdered By: Dr. Cuello on 12-06-2022 Monocytes/100 WBC (Bld) 8.8 % 0-10 [facility] Blood platelet mean volumeOr dered By: Dr. Cuello on 12-06-2022 Platelet mean volume (Bld) [Entitic vol] 9.7 fL 6.2-12.0 [facility] Determination of erythrocyte mean corpuscular volume (MCV)Ordered By: Dr. Cuello on 12-06-2022 MCV (RBC) [Entitic vol] 90.5 fL 80-94 [facility] Hematocrit Auto (Bld) [Volum e fraction]Ordered By: Dr. Cuello on 12-06-2022 Hematocrit (Bld) [Volume fraction] 35.2 % 40-54 [facility] Laboratory - Chemistry and C hemistry - challengeOrdered By: Dr. Cuello on 12-06-2022 ALP [Catalytic activity/Vol] 138 U/L 45-117 [facility] ALT [Catalytic activity/Vol] 35 U/L 16-61 [facility] CO2 [Moles/Vol] 25.0 mmol/L 21.0-32.0 [facility] Globulin (S) [Mass/Vol] 4.0 g/dL 2.2-4.2 [facility] Urea nitrogen/Creatinine [Mass ratio] 10.2 mg/mg 10-20 [facility] Laboratory - Hematology and Cell countsOrdered By: Dr. Cuello on 12-06-2022 Erythrocyte distribution width (RBC) [Entitic vol] 45.8 fL 35.1-43.9 [facility] Erythrocyte distribution width (RBC) [Ratio] 13.8 % 11.6-14.6 [facility] Immature granulocytes/100 WBC (Bld) 0.200 % 0.0-0.9 [facility] Comment on above: IG% - Immature Granu locytes (promyelocytes, myelocytes and metamyelocytes) > 1% indicates that a LEFT SHIFT is Present. MCH (RBC) [Entitic mass] 28.5 pg 27.0-32.0 [facility] Nucleated RBC/100 WBC (Bld) [Ratio] 0 % 0-5 [facility] MCHC Auto (RBC) [Mass/Vol]Or dered By: Dr. Cuello on 12-06-2022 MCHC (RBC) [Mass/Vol] 31.5 g/dL 32-36 [facility] No Panel InformationOrdered By: Dr. Cuello on 12-06-2022 Estimated GFR (MDRD) Amer 84 mL/min >60 [facility] Comment on above: GFR Calc Estimated GFR (MDRD) Non-Af Amer 69 mL/min >60 [facility] Comment on above: Non- GFR Calc Platelets bldOrdered By: Dr. Cuello on 12-06-2022 Platelets (Bld) [#/Vol] 394 10*3/uL 150-450 [facility] Serum or plasma albumin jose urement (mass/volume)Ordered By: Dr. Cuello on 12-06-2022 Albumin [Mass/Vol] 3.6 g/dL 3.2-5.0 [facility] Serum or plasma albumin/glob ulin mass ratioOrdered By: Dr. Cuello on 12-06-2022 Albumin/Globulin [Mass ratio] 0.9 {ratio} 0.9-2.4 [facility] Serum or plasma calcium jose urement (mass/volume)Ordered By: Dr. Cuello on 12-06-2022 Calcium [Mass/Vol] 9.5 mg/dL 8.5-10.1 [facility] Serum or plasma cholesterol in HDL measurement (mass/volume)Ordered By: Dr. Cuello on 12-06-2022 Cholesterol in HDL [Mass/Vol] 43 mg/dL >40 [facility] Comment on above: The drugs N-Acetylcy steine and Metamizole may falsely depress this assay. Reference Range HDL <40 mg/dL Low HDL Cholesterol HDL >or= 60 mg/dL High HDL Cholesterol Serum or plasma cholesterol in VLDL measurement (mass/volume)Ordered By: Dr. Cuello on 12-06-2022 Cholesterol in VLDL [Mass/Vol] 20 mg/dL 5-40 [facility] Serum or plasma creatinine m easurement (mass/volume)Ordered By: Dr. Cuello on 12-06-2022 Creatinine [Mass/Vol] 1.18 mg/dL 0.70-1.30 [facility] Comment on above: The validity of the calculated GFR & GFRAA in patients over 70 years has not been determined. Clinical correlation is essential. Serum or plasma low density lipoprotein (LDL) cholesterol measurement (mass/volume)Ordered By: Dr. Cuello on 12-06-2022 Cholesterol in LDL [Mass/Vol] 54 mg/dL 0-130 [facility] Serum or plasma urea nitroge n measurement (mass/volume)Ordered By: Dr. Cuello on 12-06-2022 Urea nitrogen [Mass/Vol] 12 mg/dL 7-18 [facility] Thin prep Papanicolaou smear with manual screeningOrdered By: Dr. Cuello on 12-06-2022 Thin prep Papanicolaou smear with manual screening 20 U/L 15-37 [facility] Thin prep Papanicolaou smear with manual screening 8 5-15 [facility] CBC,PLATELETSon 11-18-2022 Hematocrit (Bld) [Volume fraction] 29.4 % Low 39.6-48.8 [facility] Comment on above: Performed By: #### G AS5L #### [facility] (DEFAULT) [address] [place] [address] 28534 Hemoglobin (Bld) [Mass/Vol] 9.8 g/dL Low 13.4-16.8 [facility] Comment on above: Performed By: #### G AS5L #### [facility] (DEFAULT) [address] [place] [address] 38052 MCV (RBC) [Entitic vol] 88.0 fL Normal 79.0-94.5 [facility] Comment on above: Performed By: #### G AS5L #### [facility] (DEFAULT) [address] [address] Mean Cell Hgb 29.3 pg Normal 26.1-33.3 [facility] Comment on above: Performed By: #### G AS5L #### [facility] (DEFAULT) [address] [place] [address] 20793 Mean Cell Hgb Conc 33.3 g/dL Normal 31.9-36.5 [facility] Comment on above: Performed By: #### G AS5L #### [facility] (DEFAULT) [address] [place] [address] 30083 Platelet mean volume (Bld) [Entitic vol] 10.5 fL Normal 8.7-12.3 [facility] Comment on above: Performed By: #### G AS5L #### [facility] (DEFAULT) [address] [place] [address] 00168 Platelets (Bld) [#/Vol] 261 10*3/uL Normal 146-337 [facility] Comment on above: Performed By: #### G AS5L #### [facility] (DEFAULT) [address] [place] [address] 99782 RBC (Bld) [#/Vol] 3.34 10*6/uL Low 4.38-5.83 [facility] Comment on above: Performed By: #### G AS5L #### [facility] (DEFAULT) [address] [place] [address] 69606 RBC Distribution 14.1 % Normal 10.9-14.3 [facility] Comment on above: Performed By: #### G AS5L #### [facility] (DEFAULT) [address] [place] [address] 77692 WBC (Bld) [#/Vol] 10.46 10*3/uL High 3.73-10.10 [facility] Comment on above: Performed By: #### G AS5L #### [facility] (DEFAULT) [address] [place] [address] 59474 Erythrocyte distribution width (RBC) [Ratio] 14.1 % 10.9 - 14.3 % [facility] Hematocrit (Bld) [Volume fraction] 29.4 % Low 39.6 - 48.8 % [facility] Hemoglobin (Bld) [Mass/Vol] 9.8 g/dL Low 13.4 - 16.8 g/dL [facility] Interpretation and review of laboratory results Abnormal [facility] MCH (RBC) [Entitic mass] 29.3 pg 26.1 - 33.3 pg [facility] MCHC (RBC) [Mass/Vol] 33.3 g/dL 31.9 - 36.5 g/dL [facility] MCV (RBC) [Entitic vol] 88.0 fL 79.0 - 94.5 fL [facility] Platelet mean volume (Bld) [Entitic vol] 10.5 fL 8.7 - 12.3 fL [facility] Platelets (Bld) [#/Vol] 261 10*3/uL 146 - 337 K/uL [facility] RBC (Bld) [#/Vol] 3.34 10*6/uL Low [facility] WBC (Bld) [#/Vol] 10.46 10*3/uL High 3.73 - 10 .10 K/uL [facility] CHEM 7 (LYTES,BUN,CREA,GLUC) on 11-18-2022 Anion gap [Moles/Vol] 15 mmol/L Normal 7-17 [facility] Comment on above: Performed By: #### P TT #### [facility] (DEFAULT) [address] [address] Chloride [Moles/Vol] 102 mmol/L Normal 98-108 [facility] Comment on above: Performed By: #### P TT #### [facility] (DEFAULT) [address] [address] CO2 [Moles/Vol] 26 mmol/L Normal 21-31 [facility] Comment on above: Performed By: #### P TT #### [facility] (DEFAULT) [address] [place] [address] 82801 Creatinine [Mass/Vol] 1.24 mg/dL Normal 0.70-1.30 [facility] Comment on above: Performed By: #### P TT #### [facility] (DEFAULT) [address] [address] GFR/1.73 sq M.predicted among non-blacks MDRD (S/P/Bld) [Vol rate/Area] 71 mL/min/{1.73_m2} Normal >=60 [facility] Comment on above: Result Comment: Repo rted eGFR is based on the CKD-EPI 2020 equation using creatinine, age, and sex. Performed By: #### P TT #### [facility] (DEFAULT) [address] [address] Glucose [Mass/Vol] 108 mg/dL High 70-99 [facility] Comment on above: Performed By: #### P TT #### [facility] (DEFAULT) [address] [place] [address] 90679 Osmolality [Osmolality] 293 mosm/kg Normal 278-305 [facility] Comment on above: Performed By: #### P TT #### [facility] (DEFAULT) [address] [place] [address] 76295 Potassium [Moles/Vol] 4.5 mmol/L Normal 3.5-5.0 [facility] Comment on above: Performed By: #### P TT #### [facility] (DEFAULT) [address] [place] [address] 71840 Sodium [Moles/Vol] 138 mmol/L Normal 135-145 [facility] Comment on above: Performed By: #### P TT #### [facility] (DEFAULT) [address] [place] [address] 70848 Urea nitrogen [Mass/Vol] 21 mg/dL Normal 7-25 [facility] Comment on above: Performed By: #### P TT #### [facility] (DEFAULT) [address] [place] [address] 51744 Urea nitrogen/Creatinine [Mass ratio] 17 mg/mg Normal [facility] Comment on above: Performed By: #### P TT #### [facility] (DEFAULT) [address] [place] [address] 71897 Anion gap [Moles/Vol] 15 mmol/L 7 - 17 mmol/L [facility] Chloride [Moles/Vol] 102 mmol/L 98 - 10 8 mmol/L [facility] CO2 [Moles/Vol] 26 mmol/L 21 - 31 mmol/L [facility] Creatinine [Mass/Vol] 1.24 mg/dL 0.70 - 1.30 mg/dL [facility] GFR/1.73 sq M.predicted CKD-EPI (S/P/Bld) [Vol rate/Area] 71 - PINF [facility] Glucose [Mass/Vol] 108 mg/dL High 70 - 99 mg/dL [facility] Interpretation and review of laboratory results Abnormal [facility] Osmolality Calc [Osmolality] 293 [facility] Potassium [Moles/Vol] 4.5 mmol/L 3.5 - 5.0 mmol/L [facility] Sodium [Moles/Vol] 138 mmol/L 135 - 145 mmol/L [facility] Urea nitrogen [Mass/Vol] 21 mg/dL 7 - 25 mg/dL [facility] Urea nitrogen/Creatinine [Mass ratio] 17 mg/mg [facility] MAGNESIUMon 11-18-2022 Magnesium [Mass/Vol] 2.2 mg/dL Normal 1.6-2.6 [facility] Comment on above: Performed By: #### P TT #### [facility] (DEFAULT) [address] [place] [address] Interpretation and review of laboratory results Normal [facility] Magnesium [Mass/Vol] 2.2 mg/dL 1.6 - 2 .6 mg/dL [facility] No Panel Informationon 11-18 [facility] XR CHEST PA AND LATERALon XR CHEST PA AND LATERAL EXAM: XR CHEST PA AND LATERAL, 11/17/2022 21:03 PM CLINICAL INDICATIONS: eval fluid status, all chest tubes removed RELEVANT CLINICAL HISTORY: COMPARISON: Trachea 23 FINDINGS: Stable to slightly decreased small left apical pneumothorax. Stable sternal hardware and surgical clips. Coronary ostial marker. Persistent left pleural effusion with improvement in left greater than right basilar volume loss. Normal heart size. No pulmonary edema. IMPRESSION: 1. Stable to slight decrease in small left apical pneumothorax. 2. Persistent left pleural effusion with improved left greater than right basilar volume loss. Normal [facility] XR Chest PA and Lateralon RADIOLOGY RADIOLOGY [facility] CBC,PLATELETSon 11-17-2022 Hematocrit (Bld) [Volume fraction] 28.1 % Low 39.6-48.8 [facility] Comment on above: Performed By: #### Hillary AS5L #### [facility] (DEFAULT) [address] [address] Hemoglobin (Bld) [Mass/Vol] 9.5 g/dL Low 13.4-16.8 [facility] Comment on above: Performed By: #### Hillary AS5L #### [facility] (DEFAULT) [address] [address] MCV (RBC) [Entitic vol] 86.7 fL Normal 79.0-94.5 [facility] Comment on above: Performed By: #### Hillary AS5L #### [facility] (DEFAULT) [address] [address] Mean Cell Hgb 29.3 pg Normal 26.1-33.3 [facility] Comment on above: Performed By: #### Hillary AS5L #### [facility] (DEFAULT) [address] [address] Mean Cell Hgb Conc 33.8 g/dL Normal 31.9-36.5 [facility] Comment on above: Performed By: #### Hillary AS5L #### [facility] (DEFAULT) [address] [address] Platelet mean volume (Bld) [Entitic vol] 11.1 fL Normal 8.7-12.3 [facility] Comment on above: Performed By: #### Hillary AS5L #### [facility] (DEFAULT) [address] [address] Platelets (Bld) [#/Vol] 189 10*3/uL Normal 146-337 [facility] Comment on above: Performed By: #### G AS5L #### [facility] (DEFAULT) [address] [address] RBC (Bld) [#/Vol] 3.24 10*6/uL Low 4.38-5.83 [facility] Comment on above: Performed By: #### G AS5L #### [facility] (DEFAULT) [address] [place] [address] RBC Distribution 13.8 % Normal 10.9-14.3 [facility] Comment on above: Performed By: #### G AS5L #### [facility] (DEFAULT) [address] [place] [address] WBC (Bld) [#/Vol] 9.48 10*3/uL Normal 3.73-10.10 [facility] Comment on above: Performed By: #### G AS5L #### [facility] (DEFAULT) [address] [place] [address] Erythrocyte distribution width (RBC) [Ratio] 13.8 % 10.9 - 14.3 % [facility] Hematocrit (Bld) [Volume fraction] 28.1 % Low 39.6 - 48.8 % [facility] Hemoglobin (Bld) [Mass/Vol] 9.5 g/dL Low 13.4 - 16.8 g/dL [facility] Interpretation and review of laboratory results Abnormal [facility] MCH (RBC) [Entitic mass] 29.3 pg 26.1 - 33.3 pg [facility] MCHC (RBC) [Mass/Vol] 33.8 g/dL 31.9 - 36.5 g/dL [facility] MCV (RBC) [Entitic vol] 86.7 fL 79.0 - 94.5 fL [facility] Platelet mean volume (Bld) [Entitic vol] 11.1 fL 8.7 - 12.3 fL [facility] Platelets (Bld) [#/Vol] 189 10*3/uL 146 - 337 K/uL [facility] RBC (Bld) [#/Vol] 3.24 10*6/uL Low [facility] WBC (Bld) [#/Vol] 9.48 10*3/uL 3.73 - 10. 10 K/uL [facility] CHEM 7 (LYTES,BUN,CREA,GLUC) on 11-17-2022 Anion gap [Moles/Vol] 14 mmol/L Normal 7-17 [facility] Comment on above: Performed By: #### X M #### [facility] (DEFAULT) [address] [place] [address] Chloride [Moles/Vol] 100 mmol/L Normal 98-108 [facility] Comment on above: Performed By: #### X M #### [facility] (DEFAULT) [address] [place] [address]009 CO2 [Moles/Vol] 28 mmol/L Normal 21-31 [facility] Comment on above: Performed By: #### X M #### [facility] (DEFAULT) [address] [place] [address] 71458 Creatinine [Mass/Vol] 1.26 mg/dL Normal 0.70-1.30 [facility] Comment on above: Performed By: #### X M #### [facility] (DEFAULT) [address] [place] [address] 79842 GFR/1.73 sq M.predicted among non-blacks MDRD (S/P/Bld) [Vol rate/Area] 69 mL/min/{1.73_m2} Normal >=60 [facility] Comment on above: Result Comment: Repo rted eGFR is based on the CKD-EPI 2020 equation using creatinine, age, and sex. Performed By: #### X M #### [facility] (DEFAULT) [address] [place] [address] Glucose [Mass/Vol] 115 mg/dL High 70-99 [facility] Comment on above: Performed By: #### X M #### [facility] (DEFAULT) [address] [place] [address] 38351 Osmolality [Osmolality] 294 mosm/kg Normal 278-305 [facility] Comment on above: Performed By: #### X M #### [facility] (DEFAULT) [address] [place] [address]13 Potassium [Moles/Vol] 4.0 mmol/L Normal 3.5-5.0 [facility] Comment on above: Performed By: #### X M #### [facility] (DEFAULT) [address] [place] [address] Sodium [Moles/Vol] 138 mmol/L Normal 135-145 [facility] Comment on above: Performed By: #### X M #### [facility] (DEFAULT) [address] [place] [address]63 Urea nitrogen [Mass/Vol] 24 mg/dL Normal 7-25 [facility] Comment on above: Performed By: #### X M #### [facility] (DEFAULT) [address] [place] [address] Urea nitrogen/Creatinine [Mass ratio] 19 mg/mg Normal [facility] Comment on above: Performed By: #### X M #### [facility] (DEFAULT) [address] [place] [address] Anion gap [Moles/Vol] 14 mmol/L 7 - 17 mmol/L [facility] Chloride [Moles/Vol] 100 mmol/L 98 - 10 8 mmol/L [facility] CO2 [Moles/Vol] 28 mmol/L 21 - 31 mmol/L [facility] Creatinine [Mass/Vol] 1.26 mg/dL 0.70 - 1.30 mg/dL [facility] GFR/1.73 sq M.predicted CKD-EPI (S/P/Bld) [Vol rate/Area] 69 - PINF [facility] Glucose [Mass/Vol] 115 mg/dL High 70 - 99 mg/dL [facility] Interpretation and review of laboratory results Abnormal [facility] Osmolality Calc [Osmolality] 294 [facility] Potassium [Moles/Vol] 4.0 mmol/L 3.5 - 5.0 mmol/L [facility] Sodium [Moles/Vol] 138 mmol/L 135 - 145 mmol/L [facility] Urea nitrogen [Mass/Vol] 24 mg/dL 7 - 25 mg/dL [facility] Urea nitrogen/Creatinine [Mass ratio] 19 mg/mg [facility] MAGNESIUMon 11-17-2022 Magnesium [Mass/Vol] 2.0 mg/dL Normal 1.6-2.6 [facility] Comment on above: Performed By: #### X M #### [facility] (DEFAULT) [address] [place] [address] Interpretation and review of laboratory results Normal [facility] Magnesium [Mass/Vol] 2.0 mg/dL 1.6 - 2 .6 mg/dL [facility] No Panel Informationon 11-17 [facility] TYPE AND SCREENon 11-17-2022 ABO/RH(D) TYPE Positive Normal [facility] Comment on above: Order Comment: Maint ain current type and screen. Performed By: #### X M #### [facility] (DEFAULT) [address] [place] [address] 16045 ABO/RH(D) TYPE Positive [facility] XR Chest PA and Lateralon Radiology Study observation (narrative) [facility] C REACTIVE PROTEINon 023 CRP [Mass/Vol] 172.55 mg/L High <10.00 [facility] Comment on above: Performed By: #### U LYTR, UCRER #### [facility] (DEFAULT) [address] [place] [address] 60951 CRP High sensitivity method [Mass/Vol] 172.55 mg/L High NINF - 10.00 mg/L [facility] Interpretation and review of laboratory results Abnormal [facility] CBC,PLATELETSon 11-16-2022 Hematocrit (Bld) [Volume fraction] 29.8 % Low 39.6-48.8 [facility] Comment on above: Performed By: #### X M #### [facility] (DEFAULT) [address] [place] [address]96 Hemoglobin (Bld) [Mass/Vol] 10.1 g/dL Low 13.4-16.8 [facility] Comment on above: Performed By: #### X M #### [facility] (DEFAULT) [address] [place] [address] 42335 MCV (RBC) [Entitic vol] 88.4 fL Normal 79.0-94.5 [facility] Comment on above: Performed By: #### X M #### [facility] (DEFAULT) [address] [place] [address] 39825 Mean Cell Hgb 30.0 pg Normal 26.1-33.3 [facility] Comment on above: Performed By: #### X M #### [facility] (DEFAULT) [address] [place] [address] 93893 Mean Cell Hgb Conc 33.9 g/dL Normal 31.9-36.5 [facility] Comment on above: Performed By: #### X M #### [facility] (DEFAULT) [address] [place] [address] 94113 Platelet mean volume (Bld) [Entitic vol] 11.0 fL Normal 8.7-12.3 [facility] Comment on above: Performed By: #### X M #### [facility] (DEFAULT) [address] [place] [address]63 Platelets (Bld) [#/Vol] 161 10*3/uL Normal 146-337 [facility] Comment on above: Performed By: #### X M #### [facility] (DEFAULT) [address] [place] [address] 82521 RBC (Bld) [#/Vol] 3.37 10*6/uL Low 4.38-5.83 [facility] Comment on above: Performed By: #### X M #### [facility] (DEFAULT) [address] [place] [address] 16446 RBC Distribution 14.0 % Normal 10.9-14.3 [facility] Comment on above: Performed By: #### X M #### [facility] (DEFAULT) [address] [place] [address] WBC (Bld) [#/Vol] 10.90 10*3/uL High 3.73-10.10 [facility] Comment on above: Performed By: #### X M #### [facility] (DEFAULT) [address] [place] [address]757 Erythrocyte distribution width (RBC) [Ratio] 14.0 % 10.9 - 14.3 % [facility] Hematocrit (Bld) [Volume fraction] 29.8 % Low 39.6 - 48.8 % [facility] Hemoglobin (Bld) [Mass/Vol] 10.1 g/dL Low 13.4 - 16.8 g/dL [facility] Interpretation and review of laboratory results Abnormal [facility] MCH (RBC) [Entitic mass] 30.0 pg 26.1 - 33.3 pg [facility] MCHC (RBC) [Mass/Vol] 33.9 g/dL 31.9 - 36.5 g/dL [facility] MCV (RBC) [Entitic vol] 88.4 fL 79.0 - 94.5 fL [facility] Platelet mean volume (Bld) [Entitic vol] 11.0 fL 8.7 - 12.3 fL [facility] Platelets (Bld) [#/Vol] 161 10*3/uL 146 - 337 K/uL [facility] RBC (Bld) [#/Vol] 3.37 10*6/uL Low [facility] WBC (Bld) [#/Vol] 10.90 10*3/uL High 3.73 - 10 .10 K/uL [facility] CHEM 7 (LYTES,BUN,CREA,GLUC) on 11-16-2022 Anion gap [Moles/Vol] 12 mmol/L Normal 7-17 [facility] Comment on above: Performed By: #### U LYTR, UCRER #### [facility] (DEFAULT) [address] [address] Chloride [Moles/Vol] 99 mmol/L Normal 98-108 [facility] Comment on above: Performed By: #### U LYTR, UCRER #### [facility] (DEFAULT) [address] [place] [address] 22483 CO2 [Moles/Vol] 30 mmol/L Normal 21-31 [facility] Comment on above: Performed By: #### U LYTR, UCRER #### [facility] (DEFAULT) [address] [place] [address]255 Creatinine [Mass/Vol] 1.28 mg/dL Normal 0.70-1.30 [facility] Comment on above: Performed By: #### U LYTR, UCRER #### [facility] (DEFAULT) [address] [place] [address] 35346 GFR/1.73 sq M.predicted among non-blacks MDRD (S/P/Bld) [Vol rate/Area] 68 mL/min/{1.73_m2} Normal >=60 [facility] Comment on above: Result Comment: Repo rted eGFR is based on the CKD-EPI 2020 equation using creatinine, age, and sex. Performed By: #### U LYTR, UCRER #### [facility] (DEFAULT) [address] [place] [address]281 Glucose [Mass/Vol] 111 mg/dL High 70-99 [facility] Comment on above: Performed By: #### U LYTR, UCRER #### [facility] (DEFAULT) [address] [place] [address] 46561 Osmolality [Osmolality] 290 mosm/kg Normal 278-305 [facility] Comment on above: Performed By: #### U LYTR, UCRER #### [facility] (DEFAULT) [address] [place] [address] 6[address]16 Potassium [Moles/Vol] 4.0 mmol/L Normal 3.5-5.0 [facility] Comment on above: Performed By: #### Job GATES UCRER #### [facility] (DEFAULT) [address] [place] [address] Sodium [Moles/Vol] 137 mmol/L Normal 135-145 [facility] Comment on above: Performed By: #### Job GATES UCRER #### [facility] (DEFAULT) [address] [place] [address] Urea nitrogen [Mass/Vol] 18 mg/dL Normal 7-25 [facility] Comment on above: Performed By: #### Job GATES UCRER #### [facility] (DEFAULT) [address] [place] [address] Urea nitrogen/Creatinine [Mass ratio] 14 mg/mg Normal [facility] Comment on above: Performed By: #### Job GATES UCRER #### [facility] (DEFAULT) [address] [place] [address] Anion gap [Moles/Vol] 12 mmol/L 7 - 17 mmol/L [facility] Chloride [Moles/Vol] 99 mmol/L 98 - 10 8 mmol/L [facility] CO2 [Moles/Vol] 30 mmol/L 21 - 31 mmol/L [facility] Creatinine [Mass/Vol] 1.28 mg/dL 0.70 - 1.30 mg/dL [facility] GFR/1.73 sq M.predicted CKD-EPI (S/P/Bld) [Vol rate/Area] 68 - PINF [facility] Glucose [Mass/Vol] 111 mg/dL High 70 - 99 mg/dL [facility] Interpretation and review of laboratory results Abnormal [facility] Osmolality Calc [Osmolality] 290 [facility] Potassium [Moles/Vol] 4.0 mmol/L 3.5 - 5.0 mmol/L [facility] Sodium [Moles/Vol] 137 mmol/L 135 - 145 mmol/L [facility] Urea nitrogen [Mass/Vol] 18 mg/dL 7 - 25 mg/dL [facility] Urea nitrogen/Creatinine [Mass ratio] 14 mg/mg [facility] ECGon 11-16-2022 [facility] ECGOrdered By: Dean chen on 11-16-2022 [facility] Work Phone: GLUCOSE POCon 11-16-2022 Glucose [Mass/Vol] 150 mg/dL High 70 - 99 mg/dL [facility] Glucose [Mass/Vol] 115 mg/dL High 70 - 99 mg/dL [facility] Glucose [Mass/Vol] 108 mg/dL High 70 - 99 mg/dL [facility] Interpretation and review of laboratory results Abnormal [facility] POC Sample Type CAPBL [facility] IONIZED CALCIUM, WHOLE BLOOD on 11-16-2022 ICA 4.40 mg/dL Low 4.60-5.30 [facility] Comment on above: Performed By: #### S CRSB #### [facility] (DEFAULT) [address] [place] [address] IONIZED CALCIUM, WHOLE BLOOD Ordered By: Yunior Mcdaniel on 11-16-2022 Calcium.ionized (Bld) [Moles/Vol] 4.40 mg/dL Low 4.60 - 5.30 mg/dL [facility] Interpretation and review of laboratory results Abnormal [facility] MAGNESIUMon 11-16-2022 Magnesium [Mass/Vol] 1.8 mg/dL Normal 1.6-2.6 [facility] Comment on above: Performed By: #### U LYTR, UCRER #### [facility] (DEFAULT) [address] [address] Interpretation and review of laboratory results Normal [facility] Magnesium [Mass/Vol] 1.8 mg/dL 1.6 - 2 .6 mg/dL [facility] No Panel Informationon 11-16 Interpretation and review of laboratory results Abnormal [facility] POC Sample Type CAPBL [facility] PREALBUMINon 11-16-2022 Prealbumin [Mass/Vol] 16 mg/dL Low 17-[address] [facility] Comment on above: Performed By: #### INGRID MILLERRER #### [facility] (DEFAULT) [address] [place] [address] Interpretation and review of laboratory results Abnormal [facility] Prealbumin [Mass/Vol] 16 mg/dL Low 17 - 34 mg/dL [facility] Portable XR Chest Viewson RADIOLOGY RADIOLOGY [facility] Radiology Study observation (narrative) [facility] Portable XR Chest ViewsOrder ed By: Chaz Brower on 11-16-2022 [facility] Work Phone: XR CHEST PORTABLEon 11-16-19 XR CHEST PORTABLE EXAM: XR CHEST PORTABLE, 11/16/2022 10:59 AM CLINICAL INDICATIONS: pleural tubes removed RELEVANT CLINICAL HISTORY: COMPARISON: Compared to the prior study performed one day prior. FINDINGS: Stable sternal hardware, coronary ostial marker and surgical clips. Interval removal of the anterior chest tubes. One mediastinal drain remains. Small left apical pneumothorax. Bibasilar volume loss, similar to the previous study. Normal heart size. No pulmonary edema. IMPRESSION: Small left apical pneumothorax following removal of the anterior chest tubes. Normal [facility] CBC,PLATELETSon 11-15-2022 Hematocrit (Bld) [Volume fraction] 27.0 % Low 39.6-48.8 [facility] Comment on above: Performed By: #### Job GATES UCRER #### [facility] (DEFAULT) [address] [place] [address] Hemoglobin (Bld) [Mass/Vol] 9.2 g/dL Low 13.4-16.8 [facility] Comment on above: Performed By: #### U LYTR, UCRER #### [facility] (DEFAULT) [address] [place] [address] MCV (RBC) [Entitic vol] 87.9 fL Normal 79.0-94.5 [facility] Comment on above: Performed By: #### U LYTR, UCRER #### [facility] (DEFAULT) [address] [place] [address]461 Mean Cell Hgb 30.0 pg Normal 26.1-33.3 [facility] Comment on above: Performed By: #### U LYTR, UCRER #### [facility] (DEFAULT) [address] [place] [address] Mean Cell Hgb Conc 34.1 g/dL Normal 31.9-36.5 [facility] Comment on above: Performed By: #### U LYTR, UCRER #### U [facility] (DEFAULT) [address] [place] [address] Mean Platelet Volume Normal [facility] Comment on above: Result Comment: Not measured Performed By: #### U LYTR, UCRER #### U [facility] (DEFAULT) [address] [place] [address] Platelets (Bld) [#/Vol] 128 10*3/uL Low 146-337 [facility] Comment on above: Performed By: #### U LYTR, UCRER #### U [facility] (DEFAULT) [address] [place] [address] RBC (Bld) [#/Vol] 3.07 10*6/uL Low 4.38-5.83 [facility] Comment on above: Performed By: #### U LYTR, UCRER #### U [facility] (DEFAULT) [address] [place] [address] 12403 RBC Distribution 14.2 % Normal 10.9-14.3 [facility] Comment on above: Performed By: #### U KODY UCRER #### [facility] (DEFAULT) [address] [place] [address]61 WBC (Bld) [#/Vol] 11.48 10*3/uL High 3.73-10.10 [facility] Comment on above: Performed By: #### U KODY UCRER #### [facility] (DEFAULT) [address] [place] [address] Erythrocyte distribution width (RBC) [Ratio] 14.2 % 10.9 - 14.3 % [facility] Hematocrit (Bld) [Volume fraction] 27.0 % Low 39.6 - 48.8 % [facility] Hemoglobin (Bld) [Mass/Vol] 9.2 g/dL Low 13.4 - 16.8 g/dL [facility] Interpretation and review of laboratory results Abnormal [facility] MCH (RBC) [Entitic mass] 30.0 pg 26.1 - 33.3 pg [facility] MCHC (RBC) [Mass/Vol] 34.1 g/dL 31.9 - 36.5 g/dL [facility] MCV (RBC) [Entitic vol] 87.9 fL 79.0 - 94.5 fL [facility] Platelet mean volume (Bld) [Entitic vol] [facility] Platelets (Bld) [#/Vol] 128 10*3/uL Low 146 - 337 K/uL [facility] RBC (Bld) [#/Vol] 3.07 10*6/uL Low [facility] WBC (Bld) [#/Vol] 11.48 10*3/uL High 3.73 - 10 .10 K/uL [facility] CHEM 7 (LYTES,BUN,CREA,GLUC) on 11-15-2022 Anion gap [Moles/Vol] 11 mmol/L Normal 7-17 [facility] Comment on above: Performed By: #### X M #### [facility] (DEFAULT) [address] [place] [address]26 Chloride [Moles/Vol] 104 mmol/L Normal 98-108 [facility] Comment on above: Performed By: #### X M #### U [facility] (DEFAULT) [address] [place] [address] 20333 CO2 [Moles/Vol] 27 mmol/L Normal 21-31 [facility] Comment on above: Performed By: #### X M #### [facility] (DEFAULT) [address] [place] [address] Creatinine [Mass/Vol] 1.35 mg/dL High 0.70-1.30 [facility] Comment on above: Performed By: #### X M #### U [facility] (DEFAULT) [address] [place] [address] GFR/1.73 sq M.predicted among non-blacks MDRD (S/P/Bld) [Vol rate/Area] 64 mL/min/{1.73_m2} Normal >=60 [facility] Comment on above: Result Comment: Repo rted eGFR is based on the CKD-EPI 2020 equation using creatinine, age, and sex. Performed By: #### X M #### U [facility] (DEFAULT) [address] [place] [address] Glucose [Mass/Vol] 110 mg/dL High 70-99 [facility] Comment on above: Performed By: #### X M #### U [facility] (DEFAULT) [address] [place] [address] Osmolality [Osmolality] 293 mosm/kg Normal 278-305 [facility] Comment on above: Performed By: #### X M #### U [facility] (DEFAULT) [address] [place] [address] Potassium [Moles/Vol] 3.8 mmol/L Normal 3.5-5.0 [facility] Comment on above: Performed By: #### X M #### [facility] (DEFAULT) [address] [place] [address] Sodium [Moles/Vol] 138 mmol/L Normal 135-145 [facility] Comment on above: Performed By: #### X M #### [facility] (DEFAULT) [address] [place] [address] Urea nitrogen [Mass/Vol] 23 mg/dL Normal 7-25 [facility] Comment on above: Performed By: #### X M #### [facility] (DEFAULT) [address] [place] [address] Urea nitrogen/Creatinine [Mass ratio] 17 mg/mg Normal [facility] Comment on above: Performed By: #### X M #### [facility] (DEFAULT) [address] [place] [address] Anion gap [Moles/Vol] 11 mmol/L 7 - 17 mmol/L [facility] Chloride [Moles/Vol] 104 mmol/L 98 - 10 8 mmol/L [facility] CO2 [Moles/Vol] 27 mmol/L 21 - 31 mmol/L [facility] Creatinine [Mass/Vol] 1.35 mg/dL High 0.70 - 1.30 mg/dL [facility] GFR/1.73 sq M.predicted CKD-EPI (S/P/Bld) [Vol rate/Area] 64 - PINF [facility] Glucose [Mass/Vol] 110 mg/dL High 70 - 99 mg/dL [facility] Interpretation and review of laboratory results Abnormal [facility] Osmolality Calc [Osmolality] 293 [facility] Potassium [Moles/Vol] 3.8 mmol/L 3.5 - 5.0 mmol/L [facility] Sodium [Moles/Vol] 138 mmol/L 135 - 145 mmol/L [facility] Urea nitrogen [Mass/Vol] 23 mg/dL 7 - 25 mg/dL [facility] Urea nitrogen/Creatinine [Mass ratio] 17 mg/mg [facility] GLUCOSE POCon 11-15-2022 Glucose [Mass/Vol] 108 mg/dL High 70 - 99 mg/dL [facility] Interpretation and review of laboratory results Abnormal [facility] POC Sample Type CAPBL [facility] Glucose [Mass/Vol] 111 mg/dL High 70 - 99 mg/dL [facility] Interpretation and review of laboratory results Abnormal [facility] POC Sample Type CAPBL [facility] Glucose [Mass/Vol] 109 mg/dL High 70 - 99 mg/dL [facility] Interpretation and review of laboratory results Abnormal [facility] POC Sample Type CAPBL [facility] Glucose [Mass/Vol] 146 mg/dL High 70 - 99 mg/dL [facility] Interpretation and review of laboratory results Abnormal [facility]-2022 Magnesium [Mass/Vol] 2.0 mg/dL Normal 1.6-2.6 [facility] Comment on above: Performed By: #### X M #### [facility] (DEFAULT) [address] [place] [address] Interpretation and review of laboratory results Normal [facility] Magnesium [Mass/Vol] 2.0 mg/dL 1.6 - 2 .6 mg/dL [facility] No Panel Informationon 11-15 [facility] PT,INR,PTTon 11-15-2022 aPTT Coag (Bld) [Time] 36.9 s High 24.0-34.3 [facility] Comment on above: Performed By: #### X M #### [facility] (DEFAULT) [address] [place] [address] INR Coag (PPP) [Relative time] 1.2 {INR} High 0.9-1.1 [facility] Comment on above: Performed By: #### X M #### [facility] (DEFAULT) [address] [place] [address] PT Coag (PPP) [Time] 15.5 s High 11.9-14.2 [facility] Comment on above: Performed By: #### X M #### [facility] (DEFAULT) [address] [place] [address] aPTT Coag (PPP) [Time] 36.9 s High [facility] INR Coag (Bld) [Relative time] 1.2 {INR} High 0.9 - 1.1 [facility] Interpretation and review of laboratory results Abnormal [facility] PT Coag (PPP) [Time] 15.5 s High [facility] Portable XR Chest Viewson RADIOLOGY RADIOLOGY [facility] Radiology Study observation (narrative) [facility] Portable XR Chest ViewsOrder ed By: Pat Thornton on 11-15-2022 [facility] Work Phone: XR CHEST PORTABLEon 11-15-19 XR CHEST PORTABLE EXAM: XR CHEST PORTABLE, 11/15/2022 04:21 AM COMPARISON: November 14, 2022 CLINICAL INDICATIONS: Evaluate lung bhatt RELEVANT CLINICAL HISTORY: FINDINGS: (Adequate technique) Implanted Devices: Stable bibasilar thoracostomy tubes. Mediastinal drain. Right CVC is removed. Thorax: No definite pneumothorax identified. Mild bibasilar atelectasis. Stable cardiomediastinal silhouette. No interval bone findings. IMPRESSION: Right CVC removal. No definite residual pneumothorax identified. Bilateral thoracostomy tubes remain in place. Normal [facility] ARTERIAL BLOOD GASon 023 Base Excess -3.9 mmol/L Low -3.0-3.0 [facility] Comment on above: Order Comment: Obtai n for change in patient clinical condition. If obtained, notify Licensed Independent Provider (IRMA). Performed By: #### X M #### [facility] (DEFAULT) [address] [place] [address] FIO2 < Normal [facility] Comment on above: Order Comment: Obtai n for change in patient clinical condition. If obtained, notify Licensed Independent Provider (LIP). Result Comment: lite rs NC Performed By: #### X M #### U [facility] (DEFAULT) [address] [place] [address]1426 HCO3 (Bld) [Moles/Vol] 21 mmol/L Low 22-28 [facility] Comment on above: Order Comment: Obtai n for change in patient clinical condition. If obtained, notify Licensed Independent Provider (LIP). Performed By: #### X M #### [facility] (DEFAULT) [address] [place] [address] 48545 pCO2 37 mm Hg Normal 32-48 [facility] Comment on above: Order Comment: Obtai n for change in patient clinical condition. If obtained, notify Licensed Independent Provider (LIP). Performed By: #### X M #### [facility] (DEFAULT) [address] [place] [address] 08922 PF Ratio > Normal [facility] Comment on above: Order Comment: Obtai n for change in patient clinical condition. If obtained, notify Licensed Independent Provider (LIP). Performed By: #### X M #### [facility] (DEFAULT) [address] [address] pH (Bld) 7.37 [pH] Normal 7.35-7.45 [facility] Comment on above: Order Comment: Obtai n for change in patient clinical condition. If obtained, notify Licensed Independent Provider (LIP). Performed By: #### X M #### [facility] (DEFAULT) [address] [address] pO2 132 mm Hg High 83-108 [facility] Comment on above: Order Comment: Obtai n for change in patient clinical condition. If obtained, notify Licensed Independent Provider (LIP). Performed By: #### X M #### [facility] (DEFAULT) [address] [place] [address] 89384 sO2 99 % High 94-98 [facility] Comment on above: Order Comment: Obtai n for change in patient clinical condition. If obtained, notify Licensed Independent Provider (LIP). Performed By: #### X M #### [facility] (DEFAULT) [address] [place] [address] 23058 Specimen type Nom (Spec) Arterial Normal [facility] Comment on above: Order Comment: Obtai n for change in patient clinical condition. If obtained, notify Licensed Independent Provider (LIP). Performed By: #### X M #### [facility] (DEFAULT) [address] [place] [address] Base excess Calc (Bld) [Moles/Vol] -3.9000 mmol/L Low -3.0 - 3.0 mmol/L [facility] CO2 (Bld) [Partial pressure] 37 mm[Hg] [facility] HCO3 (Bld) [Moles/Vol] 21 mmol/L Low 22 - 28 mmol/L [facility] Inhaled oxygen concentration % % [facility] Interpretation and review of laboratory results Abnormal [facility] Oxygen (Bld) [Partial pressure] 132 mm[Hg] High [facility] Oxygen saturation in Blood 99 % High 94 - 98 % [facility] PF Ratio [facility] pH (Bld) 7.37 [pH] 7.35 - 7.45 [facility] Specimen source Nom (Unsp spec) Arterial [facility] ARTERIAL BLOOD GAS PLUS LACT ATEon 11-14-2022 Base Excess -2.6 mmol/L Normal -3.0-3.0 [facility] Comment on above: Performed By: #### G AS5L #### [facility] (DEFAULT) [address] [place] [address] 60611 FIO2 < Normal [facility] Comment on above: Result Comment: lite rs NC Performed By: #### G AS5L #### U [facility] (DEFAULT) [address] [place] [address] 98381 HCO3 (Bld) [Moles/Vol] 23 mmol/L Normal 22-28 [facility] Comment on above: Performed By: #### G AS5L #### U [facility] (DEFAULT) [address] [place] [address] 09750 Lactate, Whole Blood 1.5 mmol/L Normal 0.5-1.6 [facility] Comment on above: Performed By: #### G AS5L #### [facility] (DEFAULT) [address] [place] [address] 62947 pCO2 38 mm Hg Normal 32-48 [facility] Comment on above: Performed By: #### G AS5L #### [facility] (DEFAULT) [address] [place] [address] 30631 PF Ratio > Normal [facility] Comment on above: Performed By: #### G AS5L #### [facility] (DEFAULT) [address] [place] [address] 22801 pH (Bld) 7.38 [pH] Normal 7.35-7.45 [facility] Comment on above: Performed By: #### G AS5L #### [facility] (DEFAULT) [address] [place] [address] 97708 pO2 87 mm Hg Normal 83-108 [facility] Comment on above: Performed By: #### G AS5L #### U [facility] (DEFAULT) [address] [place] [address] 96351 sO2 98 % Normal 94-98 [facility] Comment on above: Performed By: #### G AS5L #### U [facility] (DEFAULT) [address] [place] [address] 42227 Specimen type Nom (Spec) Arterial Normal [facility] Comment on above: Performed By: #### G AS5L #### [facility] (DEFAULT) [address] [address] Base excess Calc (Bld) [Moles/Vol] -2.6000 mmol/L -3.0 - 3.0 mmol/L [facility] CO2 (Bld) [Partial pressure] 38 mm[Hg] [facility] HCO3 (Bld) [Moles/Vol] 23 mmol/L 22 - 28 mmol/L [facility] Inhaled oxygen concentration % % [facility] Lactate [Moles/Vol] 1.5 mmol/L 0.5 - 1. 6 mmol/L [facility] Oxygen (Bld) [Partial pressure] 87 mm[Hg] [facility] Oxygen saturation in Blood 98 % 94 - 98 % [facility] PF Ratio [facility] pH (Bld) 7.38 [pH] 7.35 - 7.45 [facility] Specimen source Nom (Unsp spec) Arterial [facility] Base Excess -1.7 mmol/L Normal -3.0-3.0 [facility] Comment on above: Performed By: #### X M #### [facility] (DEFAULT) [address] [address] FIO2 40 % Normal [facility] Comment on above: Result Comment: % Fi O2 on CPAP Performed By: #### X M #### [facility] (DEFAULT) [address] [address] HCO3 (Bld) [Moles/Vol] 24 mmol/L Normal 22-28 [facility] Comment on above: Performed By: #### X M #### [facility] (DEFAULT) [address] [address] Lactate, Whole Blood 1.5 mmol/L Normal 0.5-1.6 [facility] Comment on above: Performed By: #### X M #### [facility] (DEFAULT) [address] [address] pCO2 42 mm Hg Normal 32-48 [facility] Comment on above: Performed By: #### X M #### [facility] (DEFAULT) [address] [place] [address] 97042 PF Ratio 235 Normal [facility] Comment on above: Performed By: #### X M #### [facility] (DEFAULT) [address] [place] [address] 16363 pH (Bld) 7.36 [pH] Normal 7.35-7.45 [facility] Comment on above: Performed By: #### X M #### [facility] (DEFAULT) [address] [place] [address] 67893 pO2 94 mm Hg Normal 83-108 [facility] Comment on above: Performed By: #### X M #### [facility] (DEFAULT) [address] [place] [address] 90738 sO2 99 % High 94-98 [facility] Comment on above: Performed By: #### X M #### [facility] (DEFAULT) [address] [place] [address]01 Specimen type Nom (Spec) Arterial Normal [facility] Comment on above: Performed By: #### X M #### [facility] (DEFAULT) [address] [address] CBC,PLATELETSon 11-14-2022 Hematocrit (Bld) [Volume fraction] 33.0 % Low 39.6-48.8 [facility] Comment on above: Performed By: #### S CRSB #### U [facility] (DEFAULT) [address] [place] [address] 67480 Hemoglobin (Bld) [Mass/Vol] 11.2 g/dL Low 13.4-16.8 [facility] Comment on above: Performed By: #### S CRSB #### [facility] (DEFAULT) [address] [place] [address] 14243 MCV (RBC) [Entitic vol] 86.8 fL Normal 79.0-94.5 [facility] Comment on above: Performed By: #### S CRSB #### U [facility] (DEFAULT) [address] [address] Mean Cell Hgb 29.5 pg Normal 26.1-33.3 [facility] Comment on above: Performed By: #### S CRSB #### U [facility] (DEFAULT) [address] [address] Mean Cell Hgb Conc 33.9 g/dL Normal 31.9-36.5 [facility] Comment on above: Performed By: #### S CRSB #### U [facility] (DEFAULT) [address] [address] Platelet mean volume (Bld) [Entitic vol] 10.2 fL Normal 8.7-12.3 [facility] Comment on above: Performed By: #### S CRSB #### [facility] (DEFAULT) [address] [address] Platelets (Bld) [#/Vol] 134 10*3/uL Low 146-337 [facility] Comment on above: Performed By: #### S CRSB #### [facility] (DEFAULT) [address] [address] RBC (Bld) [#/Vol] 3.80 10*6/uL Low 4.38-5.83 [facility] Comment on above: Performed By: #### S CRSB #### [facility] (DEFAULT) [address] [address] RBC Distribution 14.2 % Normal 10.9-14.3 [facility] Comment on above: Performed By: #### S CRSB #### [facility] (DEFAULT) [address] [address] WBC (Bld) [#/Vol] 13.56 10*3/uL High 3.73-10.10 [facility] Comment on above: Performed By: #### S CRSB #### [facility] (DEFAULT) [address] [place] [address] Erythrocyte distribution width (RBC) [Ratio] 14.2 % 10.9 - 14.3 % [facility] Hematocrit (Bld) [Volume fraction] 33.0 % Low 39.6 - 48.8 % [facility] Hemoglobin (Bld) [Mass/Vol] 11.2 g/dL Low 13.4 - 16.8 g/dL [facility] Interpretation and review of laboratory results Abnormal [facility] MCH (RBC) [Entitic mass] 29.5 pg 26.1 - 33.3 pg [facility] MCHC (RBC) [Mass/Vol] 33.9 g/dL 31.9 - 36.5 g/dL [facility] MCV (RBC) [Entitic vol] 86.8 fL 79.0 - 94.5 fL [facility] Platelet mean volume (Bld) [Entitic vol] 10.2 fL 8.7 - 12.3 fL [facility] Platelets (Bld) [#/Vol] 134 10*3/uL Low 146 - 337 K/uL [facility] RBC (Bld) [#/Vol] 3.80 10*6/uL Low [facility] WBC (Bld) [#/Vol] 13.56 10*3/uL High 3.73 - 10 .10 K/uL [facility] CHEM 7 (LYTES,BUN,CREA,GLUC) on 11-14-2022 Anion gap [Moles/Vol] 16 mmol/L Normal 7-17 [facility] Comment on above: Performed By: #### VIRGIE CLIFFORD7 ####[facility] [facility] (DEFAULT)[address] [place] [address] Chloride [Moles/Vol] 104 mmol/L Normal 98-108 [facility] Comment on above: Performed By: #### VIRGIE CLIFFORD7 ####[facility] (DEFAULT)[address] [place] [address] CO2 [Moles/Vol] 23 mmol/L Normal 21-31 [facility] Comment on above: Performed By: #### VIRGIE CLIFFORD7 ####[facility] (DEFAULT)[address] [place] [address] Creatinine [Mass/Vol] 1.55 mg/dL High 0.70-1.30 [facility] Comment on above: Performed By: #### VIRGIE CLIFFORD7 ####[facility] (DEFAULT)[address] [place] [address] GFR/1.73 sq M.predicted among non-blacks MDRD (S/P/Bld) [Vol rate/Area] 54 mL/min/{1.73_m2} Low >=60 [facility] Comment on above: Result Comment: Repo rted eGFR is based on the CKD-EPI 2020 equation using creatinine, age, and sex. Performed By: #### MARITZA CLIFFORD ####[facility] (DEFAULT)[address] [place] [address] Glucose [Mass/Vol] 136 mg/dL High 70-99 [facility] Comment on above: Performed By: #### MARITZA CLIFFORD ####[facility] (DEFAULT)[address] [facility] [place] [address] Osmolality [Osmolality] 296 mosm/kg Normal 278-305 [facility] Comment on above: Performed By: #### VIRGIE CLIFFORD7 ####[facility] (DEFAULT)[address] [facility] [place] [address] Potassium [Moles/Vol] 4.5 mmol/L Normal 3.5-5.0 [facility] Comment on above: Performed By: #### VIRGIE CLIFFORD7 ####[facility] (DEFAULT)[address] [facility] [place] [address] Sodium [Moles/Vol] 138 mmol/L Normal 135-145 [facility] Comment on above: Performed By: #### M LINA CHM7 ####[facility] (DEFAULT)[address] [place] [address] Urea nitrogen [Mass/Vol] 24 mg/dL Normal 7-25 [facility] Comment on above: Performed By: #### M LINA CHM7 ####[facility] (DEFAULT)[address] [place] [address] Urea nitrogen/Creatinine [Mass ratio] 15 mg/mg Normal [facility] Comment on above: Performed By: #### Sachin MILLS CHM7 ####[facility] (DEFAULT)[address] [place] [address] Anion gap [Moles/Vol] 16 mmol/L 7 - 17 mmol/L [facility] Chloride [Moles/Vol] 104 mmol/L 98 - 10 8 mmol/L [facility] CO2 [Moles/Vol] 23 mmol/L 21 - 31 mmol/L [facility] Creatinine [Mass/Vol] 1.55 mg/dL High 0.70 - 1.30 mg/dL [facility] GFR/1.73 sq M.predicted CKD-EPI (S/P/Bld) [Vol rate/Area] 54 Low - PINF [facility] Glucose [Mass/Vol] 136 mg/dL High 70 - 99 mg/dL [facility] Osmolality Calc [Osmolality] 296 [facility] Potassium [Moles/Vol] 4.5 mmol/L 3.5 - 5.0 mmol/L [facility] Sodium [Moles/Vol] 138 mmol/L 135 - 145 mmol/L [facility] Urea nitrogen [Mass/Vol] 24 mg/dL 7 - 25 mg/dL [facility] Urea nitrogen/Creatinine [Mass ratio] 15 mg/mg [facility] Anion gap [Moles/Vol] 17 mmol/L Normal 7-17 [facility] Comment on above: Performed By: #### C HM7 ####[facility] (DEFAULT)[address] [place] [address] Chloride [Moles/Vol] 108 mmol/L Normal 98-108 [facility] Comment on above: Performed By: #### C HM7 ####[facility] (DEFAULT)[address] [place] [address] CO2 [Moles/Vol] 22 mmol/L Normal 21-31 [facility] Comment on above: Performed By: #### C HM7 ####[facility] (DEFAULT)[address] [facility] [place] [address] Creatinine [Mass/Vol] 1.52 mg/dL High 0.70-1.30 [facility] Comment on above: Performed By: #### C HM7 ####[facility] (DEFAULT)[address] [facility] [place] [address] GFR/1.73 sq M.predicted among non-blacks MDRD (S/P/Bld) [Vol rate/Area] 55 mL/min/{1.73_m2} Low >=60 [facility] Comment on above: Result Comment: Repo rted eGFR is based on the CKD-EPI 2020 equation using creatinine, age, and sex. Performed By: #### C HM7 ####[facility] (DEFAULT)[address] [facility] [place] [address] Glucose [Mass/Vol] 124 mg/dL High 70-99 [facility] Comment on above: Performed By: #### C HM7 ####[facility] (DEFAULT)[address] [facility] [place] [address] Osmolality [Osmolality] 303 mosm/kg Normal 278-305 [facility] Comment on above: Performed By: #### C HM7 ####[facility] (DEFAULT)[address] [facility] [place] [address] Potassium [Moles/Vol] 4.7 mmol/L Normal 3.5-5.0 [facility] Comment on above: Performed By: #### C HM7 ####[facility] (DEFAULT)[address] [facility] [place] [address] Sodium [Moles/Vol] 142 mmol/L Normal 135-145 [facility] Comment on above: Performed By: #### C HM7 ####[facility] (DEFAULT)[address] [place] [address] Urea nitrogen [Mass/Vol] 22 mg/dL Normal 7-25 [facility] Comment on above: Performed By: #### C HM7 ####[facility] (DEFAULT)[address] [place] [address] Urea nitrogen/Creatinine [Mass ratio] 14 mg/mg Normal [facility] Comment on above: Performed By: #### C HM7 ####[facility] (DEFAULT)[address] [place] [address] Anion gap [Moles/Vol] 17 mmol/L 7 - 17 mmol/L [facility] Chloride [Moles/Vol] 108 mmol/L 98 - 10 8 mmol/L [facility] CO2 [Moles/Vol] 22 mmol/L 21 - 31 mmol/L [facility] Creatinine [Mass/Vol] 1.52 mg/dL High 0.70 - 1.30 mg/dL [facility] GFR/1.73 sq M.predicted CKD-EPI (S/P/Bld) [Vol rate/Area] 55 Low - PINF [facility] Glucose [Mass/Vol] 124 mg/dL High 70 - 99 mg/dL [facility] Interpretation and review of laboratory results Abnormal [facility] Osmolality Calc [Osmolality] 303 [facility] Potassium [Moles/Vol] 4.7 mmol/L 3.5 - 5.0 mmol/L [facility] Sodium [Moles/Vol] 142 mmol/L 135 - 145 mmol/L [facility] Urea nitrogen [Mass/Vol] 22 mg/dL 7 - 25 mg/dL [facility] Urea nitrogen/Creatinine [Mass ratio] 14 mg/mg [facility] CONTINUOUS CARDIAC MONITORIN G STRIPon 11-14-2022 [facility] CREATININE,RANDOM URINEon Creatinine (U) [Mass/Vol] 188.22 mg/dL Normal [facility] Comment on above: Order Comment: The r eference range has not been established for random urine specimens. The test result should be integrated into the clinical context for interpretation. Performed By: #### U LYTR, UCRER #### [facility] (DEFAULT) [address] [place] [address] Creatinine (24H U) [Mass/Vol] 188.22 mg/dL [facility] GLUCOSE POCon 11-14-2022 Glucose [Mass/Vol] 158 mg/dL High 70 - 99 mg/dL [facility] Interpretation and review of laboratory results Abnormal [facility] POC Sample Type CAPBL [facility] Glucose [Mass/Vol] 153 mg/dL High 70 - 99 mg/dL [facility] Interpretation and review of laboratory results Abnormal [facility] POC Sample Type CAPBL [facility] Glucose [Mass/Vol] 128 mg/dL High 70 - 99 mg/dL [facility] Interpretation and review of laboratory results Abnormal [facility] POC Sample Type VENO [facility] Glucose [Mass/Vol] 128 mg/dL High 70 - 99 mg/dL [facility] Interpretation and review of laboratory results Abnormal [facility] POC Sample Type CAPBL [facility] Glucose [Mass/Vol] 136 mg/dL High 70 - 99 mg/dL [facility] Interpretation and review of laboratory results Abnormal [facility] POC Sample Type ARTER [facility] Glucose [Mass/Vol] 138 mg/dL High 70 - 99 mg/dL [facility] Interpretation and review of laboratory results Abnormal [facility] POC Sample Type ARTER [facility] Glucose [Mass/Vol] 132 mg/dL High 70 - 99 mg/dL [facility] Interpretation and review of laboratory results Abnormal [facility] POC Sample Type ARTER [facility] Glucose [Mass/Vol] 131 mg/dL High 70 - 99 mg/dL [facility] Interpretation and review of laboratory results Abnormal [facility] POC Sample Type ARTER [facility] Glucose [Mass/Vol] 115 mg/dL High 70 - 99 mg/dL [facility] Interpretation and review of laboratory results Abnormal [facility] POC Sample Type ARTER [facility] Glucose [Mass/Vol] 172 mg/dL High 70 - 99 mg/dL [facility] Interpretation and review of laboratory results Abnormal [facility] POC Sample Type ARTER [facility] HEMOGLOBIN & HEMATOCRITon Hematocrit (Bld) [Volume fraction] 31.8 % Low 39.6-48.8 [facility] Comment on above: Performed By: #### G AS5L #### [facility] (DEFAULT) [address] [place] [address] Hemoglobin (Bld) [Mass/Vol] 10.7 g/dL Low 13.4-16.8 [facility] Comment on above: Performed By: #### G AS5L #### [facility] (DEFAULT) [address] [place] [address] Hematocrit (Bld) [Volume fraction] 31.8 % Low 39.6 - 48.8 % [facility] Hemoglobin (Bld) [Mass/Vol] 10.7 g/dL Low 13.4 - 16.8 g/dL [facility] Interpretation and review of laboratory results Abnormal [facility] IONIZED CALCIUM, WHOLE BLOOD on 11-14-2022 ICA 4.62 mg/dL Normal 4.60-5.30 [facility] Comment on above: Performed By: #### U KODY UCRER #### [facility] (DEFAULT) [address] [place] [address] ICA 4.32 mg/dL Low 4.60-5.30 [facility] Comment on above: Performed By: #### S CRSB #### [facility] (DEFAULT) [address] [place] [address] IONIZED CALCIUM, WHOLE BLOOD Ordered By: Fern Roberts on 11-14-2022 Calcium.ionized (Bld) [Moles/Vol] 4.62 mg/dL 4.60 - 5.30 mg/dL [facility] Interpretation and review of laboratory results Normal [facility] IONIZED CALCIUM, WHOLE BLOOD Ordered By: Odilon Puentes on 11-14-2022 Calcium.ionized (Bld) [Moles/Vol] 4.32 mg/dL Low 4.60 - 5.30 mg/dL [facility] Interpretation and review of laboratory results Abnormal [facility] LYTES (NA, K, CL) - URINE - RANDOMon 11-14-2022 Sodium (U) [Moles/Vol] 89 mmol/L Normal [facility] Comment on above: Order Comment: The r eference range has not been established for random urine specimens. The test result should be integrated into the clinical context for interpretation. Performed By: #### U LYMJ UCRER #### [facility] (DEFAULT) [address] [place] [address] Urine Chloride 57 mmol/L Normal [facility] Comment on above: Order Comment: The r eference range has not been established for random urine specimens. The test result should be integrated into the clinical context for interpretation. Performed By: #### MARTINE MILLERR #### [facility] (DEFAULT) [address] [place] [address] Urine Potassium 141.2 mmol/L Normal [facility] Comment on above: Order Comment: The r eference range has not been established for random urine specimens. The test result should be integrated into the clinical context for interpretation. Performed By: #### INGRID MILLERRER #### [facility] (DEFAULT) [address] [place] [address] Chloride (24H U) [Moles/Vol] 57 mmol/L [facility] Potassium (24H U) [Moles/Vol] 141.2 mmol/L [facility] Sodium (24H U) [Moles/Vol] 89 mmol/L [facility] MAGNESIUMon 11-14-2022 Magnesium [Mass/Vol] 3.2 mg/dL High 1.6-2.6 [facility] Comment on above: Performed By: #### Sachin MILLS [facility] ####[facility] (DEFAULT)[address] [place] [address] Magnesium [Mass/Vol] 3.2 mg/dL High 1.6 - 2 .6 mg/dL [facility] Magnesium [Mass/Vol] 2.3 mg/dL Normal 1.6-2.6 [facility] Comment on above: Performed By: #### Sachin MILLS ####[facility] (DEFAULT)[address] [place] [address] Interpretation and review of laboratory results Normal [facility] Magnesium [Mass/Vol] 2.3 mg/dL 1.6 - 2 .6 mg/dL [facility] No Panel Informationon 11-14 Interpretation and review of laboratory results Abnormal [facility] PT,INR,PTTon 11-14-2022 aPTT Coag (Bld) [Time] 31.0 s Normal 24.0-34.3 [facility] Comment on above: Performed By: #### X M #### [facility] (DEFAULT) [address] [place] [address] INR Coag (PPP) [Relative time] 1.2 {INR} High 0.9-1.1 [facility] Comment on above: Performed By: #### X M #### [facility] (DEFAULT) [address] [place] [address] PT Coag (PPP) [Time] 14.8 s High 11.9-14.2 [facility] Comment on above: Performed By: #### X M #### [facility] (DEFAULT) [address] [place] [address] aPTT Coag (PPP) [Time] 31.0 s OS [facility] INR Coag (Bld) [Relative time] 1.2 {INR} High 0.9 - 1.1 [facility] Interpretation and review of laboratory results Abnormal [facility] PT Coag (PPP) [Time] 14.8 s High [facility] Portable XR Chest Viewson RADIOLOGY RADIOLOGY [facility] RADIOLOGY RADIOLOGY [facility] Radiology Study observation (narrative) [facility] Portable XR Chest ViewsOrder ed By: Neville Aguilar on 11-14-2022 [facility] Work Phone: XR CHEST PORTABLEon 11-14-19 XR CHEST PORTABLE EXAM: XR CHEST PORTABLE, 11/14/2022 06:10 AM COMPARISON: Compared to prior day. CLINICAL INDICATIONS: postop heart surgery RELEVANT CLINICAL HISTORY: In the A.M.; FINDINGS: (Adequate technique) Implanted Devices: ET tube and NG tube have been removed. Other life-support appliances appears stable. Thorax: Stable heart size. Bilateral basilar underaeration related to atelectasis appear unchanged. There is a small right apical pneumothorax with a pleural separation measuring approximately 5 mm at the apex. There is a tiny left apical pneumothorax with a pleural separation measuring less than 4 mm. Stable sternotomy. IMPRESSION: ET tube and NG tube have been removed. Small bilateral apical pneumothoraces are evident. Normal [facility] XR CHEST PORTABLE EXAM: XR CHEST PORTABLE, 11/13/2022 21:03 PM COMPARISON: November 09, 2022 CLINICAL INDICATIONS: postop heart surgery RELEVANT CLINICAL HISTORY: On arrival to unit.; FINDINGS: (Adequate technique) Implanted Devices: Interval placement of endotracheal tube with its tip at mid trachea, NG tube which appears coiled in the neck with its sidehole in the lower esophagus and its tip probably at the gastroesophageal junction region. Right IJ introducer sheath with its tip at lower IJ vein. Bilateral chest tubes and probable mediastinal drain. Thorax: Interval median sternotomy and multiple sternal plate and screws fixation. 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 Bibasilar atelectasis. No definite pleural effusion or pneumothorax. Stable cardiomediastinal silhouette. IMPRESSION: Status post interval median sternotomy for CABG with placement of life support devices including malpositioned NG tube which needs to be repositioned. Normal [facility] ACTIVATED CLOTTING TIME,POCo n 11-13-2022 aPTT Coag (Bld) [Time] 112.0 s OS [facility] Interpretation and review of laboratory results Normal [facility] aPTT Coag (Bld) [Time] 590.0 s High OS [facility] Interpretation and review of laboratory results Abnormal [facility] aPTT Coag (Bld) [Time] 479.0 s High OS [facility] Interpretation and review of laboratory results Abnormal [facility] aPTT Coag (Bld) [Time] 467.0 s High OS [facility] Interpretation and review of laboratory results Abnormal [facility] aPTT Coag (Bld) [Time] 661.0 s High OS [facility] Interpretation and review of laboratory results Abnormal [facility] aPTT Coag (Bld) [Time] 563.0 s High OS [facility] Interpretation and review of laboratory results [facility] Co[facility] (Bld) [Time] 533.0 s High OS [facility] Interpretation and review of laboratory results Abnormal [facility] aPTT Coag (Bld) [Time] 542.0 s High OS [facility] Interpretation and review of laboratory results Abnormal [facility] aPTT Coag (Bld) [Time] 131.0 s OS [facility] Interpretation and review of laboratory results Normal [facility] ARTERIAL BLOOD GAS PLUS LACT ATEon 11-13-2022 Base excess Calc (Bld) [Moles/Vol] -1.7000 mmol/L -3.0 - 3.0 mmol/L [facility] CO2 (Bld) [Partial pressure] 42 mm[Hg] [facility] HCO3 (Bld) [Moles/Vol] 24 mmol/L 22 - 28 mmol/L [facility] Inhaled oxygen concentration 40 % [facility] Interpretation and review of laboratory results Abnormal [facility] Lactate [Moles/Vol] 1.5 mmol/L 0.5 - 1. 6 mmol/L [facility] Oxygen (Bld) [Partial pressure] 94 mm[Hg] [facility] Oxygen saturation in Blood 99 % High 94 - 98 % [facility] PF Ratio 235 [facility] pH (Bld) 7.36 [pH] 7.35 - 7.45 [facility] Specimen source Nom (Unsp spec) Arterial [facility] Base Excess -0.2 mmol/L Normal -3.0-3.0 [facility] Comment on above: Order Comment: Colle ct first specimen at 30 minutes of arrival unit. Performed By: #### X M #### [facility] (DEFAULT) [address] [place] [address] FIO2 50 % Normal [facility] Comment on above: Order Comment: Colle ct first specimen at 30 minutes of arrival unit. Result Comment: FiO2 via vent Performed By: #### X M #### [facility] (DEFAULT) [address] [place] [address] HCO3 (Bld) [Moles/Vol] 25 mmol/L Normal 22-28 [facility] Comment on above: Order Comment: Colle ct first specimen at 30 minutes of arrival unit. Performed By: #### X M #### [facility] (DEFAULT) [address] [place] [address] Lactate, Whole Blood 1.6 mmol/L Normal 0.5-1.6 [facility] Comment on above: Order Comment: Colle ct first specimen at 30 minutes of arrival unit. Performed By: #### X M #### [facility] (DEFAULT) [address] [place] [address] pCO2 41 mm Hg Normal 32-48 [facility] Comment on above: Order Comment: Colle ct first specimen at 30 minutes of arrival unit. Performed By: #### X M #### [facility] (DEFAULT) [address] [place] [address] PF Ratio 254 Normal [facility] Comment on above: Order Comment: Colle ct first specimen at 30 minutes of arrival unit. Performed By: #### X M #### [facility] (DEFAULT) [address] [place] [address] pH (Bld) 7.39 [pH] Normal 7.35-7.45 [facility] Comment on above: Order Comment: Colle ct first specimen at 30 minutes of arrival unit. Performed By: #### X M #### [facility] (DEFAULT) [address] [place] [address] pO2 127 mm Hg High 83-108 [facility] Comment on above: Order Comment: Colle ct first specimen at 30 minutes of arrival unit. Performed By: #### X M #### [facility] (DEFAULT) [address] [place] [address] sO2 99 % High 94-98 [facility] Comment on above: Order Comment: Colle ct first specimen at 30 minutes of arrival unit. Performed By: #### X M #### [facility] (DEFAULT) [address] [place] [address] Specimen type Nom (Spec) Arterial Normal [facility] Comment on above: Order Comment: Colle ct first specimen at 30 minutes of arrival unit. Performed By: #### X M #### [facility] (DEFAULT) [address] [place] [address] Base excess Calc (Bld) [Moles/Vol] -0.2000 mmol/L -3.0 - 3.0 mmol/L [facility] CO2 (Bld) [Partial pressure] 41 mm[Hg] [facility] HCO3 (Bld) [Moles/Vol] 25 mmol/L 22 - 28 mmol/L [facility] Inhaled oxygen concentration 50 % [facility] Interpretation and review of laboratory results Abnormal [facility] Lactate [Moles/Vol] 1.6 mmol/L 0.5 - 1. 6 mmol/L [facility] Oxygen (Bld) [Partial pressure] 127 mm[Hg] High [facility] Oxygen saturation in Blood 99 % High 94 - 98 % [facility] PF Ratio 254 [facility] pH (Bld) 7.39 [pH] 7.35 - 7.45 [facility] Specimen source Nom (Unsp spec) Arterial [facility] CBC,PLATELETSon 11-13-2022 Hematocrit (Bld) [Volume fraction] 32.3 % Low 39.6-48.8 [facility] Comment on above: Performed By: #### P TT #### [facility] (DEFAULT) [address] [place] [address] Hemoglobin (Bld) [Mass/Vol] 10.9 g/dL Low 13.4-16.8 [facility] Comment on above: Performed By: #### P TT #### [facility] (DEFAULT) [address] [address] MCV (RBC) [Entitic vol] 87.5 fL Normal 79.0-94.5 [facility] Comment on above: Performed By: #### P TT #### [facility] (DEFAULT) [address] [place] [address] Mean Cell Hgb 29.5 pg Normal 26.1-33.3 [facility] Comment on above: Performed By: #### P TT #### [facility] (DEFAULT) [address] [address] Mean Cell Hgb Conc 33.7 g/dL Normal 31.9-36.5 [facility] Comment on above: Performed By: #### P TT #### [facility] (DEFAULT) [address] [place] [address]99 Platelet mean volume (Bld) [Entitic vol] 10.1 fL Normal 8.7-12.3 [facility] Comment on above: Performed By: #### P TT #### [facility] (DEFAULT) [address] [address] [address] Platelets (Bld) [#/Vol] 104 10*3/uL Low 146-337 [facility] Comment on above: Performed By: #### P TT #### [facility] (DEFAULT) [address] [place] [address] RBC (Bld) [#/Vol] 3.69 10*6/uL Low 4.38-5.83 [facility] Comment on above: Performed By: #### P TT #### [facility] (DEFAULT) [address] [place] [address] RBC Distribution 14.2 % Normal 10.9-14.3 [facility] Comment on above: Performed By: #### P TT #### [facility] (DEFAULT) [address] [place] [address] WBC (Bld) [#/Vol] 18.23 10*3/uL High 3.73-10.10 [facility] Comment on above: Performed By: #### P TT #### [facility] (DEFAULT) [address] [place] [address] Erythrocyte distribution width (RBC) [Ratio] 14.2 % 10.9 - 14.3 % [facility] Hematocrit (Bld) [Volume fraction] 32.3 % Low 39.6 - 48.8 % [facility] Hemoglobin (Bld) [Mass/Vol] 10.9 g/dL Low 13.4 - 16.8 g/dL [facility] Interpretation and review of laboratory results Abnormal [facility] MCH (RBC) [Entitic mass] 29.5 pg 26.1 - 33.3 pg [facility] MCHC (RBC) [Mass/Vol] 33.7 g/dL 31.9 - 36.5 g/dL [facility] MCV (RBC) [Entitic vol] 87.5 fL 79.0 - 94.5 fL [facility] Platelet mean volume (Bld) [Entitic vol] 10.1 fL 8.7 - 12.3 fL [facility] Platelets (Bld) [#/Vol] 104 10*3/uL Low 146 - 337 K/uL [facility] RBC (Bld) [#/Vol] 3.69 10*6/uL Low [facility] WBC (Bld) [#/Vol] 18.23 10*3/uL High 3.73 - 10 .10 K/uL [facility] Hematocrit (Bld) [Volume fraction] 39.9 % Normal 39.6-48.8 [facility] Comment on above: Performed By: #### G AS5L #### [facility] (DEFAULT) [address] [place] [address] Hemoglobin (Bld) [Mass/Vol] 13.6 g/dL Normal 13.4-16.8 [facility] Comment on above: Performed By: #### G AS5L #### [facility] (DEFAULT) [address] [place] [address] MCV (RBC) [Entitic vol] 88.5 fL Normal 79.0-94.5 [facility] Comment on above: Performed By: #### G AS5L #### [facility] (DEFAULT) [address] [place] [address] Mean Cell Hgb 30.2 pg Normal 26.1-33.3 [facility] Comment on above: Performed By: #### G AS5L #### [facility] (DEFAULT) [address] [place] [address] Mean Cell Hgb Conc 34.1 g/dL Normal 31.9-36.5 [facility] Comment on above: Performed By: #### G AS5L #### [facility] (DEFAULT) [address] [place] [address] Platelet mean volume (Bld) [Entitic vol] 10.7 fL Normal 8.7-12.3 [facility] Comment on above: Performed By: #### G AS5L #### [facility] (DEFAULT) [address] [place] [address] Platelets (Bld) [#/Vol] 220 10*3/uL Normal 146-337 [facility] Comment on above: Performed By: #### G AS5L #### [facility] (DEFAULT) [address] [place] [address] RBC (Bld) [#/Vol] 4.51 10*6/uL Normal 4.38-5.83 [facility] Comment on above: Performed By: #### G AS5L #### [facility] (DEFAULT) [address] [place] [address] RBC Distribution 14.0 % Normal 10.9-14.3 [facility] Comment on above: Performed By: #### G AS5L #### [facility] (DEFAULT) [address] [place] [address] WBC (Bld) [#/Vol] 9.58 10*3/uL Normal 3.73-10.10 [facility] Comment on above: Performed By: #### G AS5L #### [facility] (DEFAULT) [address] [place] [address] Erythrocyte distribution width (RBC) [Ratio] 14.0 % 10.9 - 14.3 % [facility] Hematocrit (Bld) [Volume fraction] 39.9 % 39.6 - 48.8 % [facility] Hemoglobin (Bld) [Mass/Vol] 13.6 g/dL 13.4 - 16.8 g/dL [facility] Interpretation and review of laboratory results Normal [facility] MCH (RBC) [Entitic mass] 30.2 pg 26.1 - 33.3 pg [facility] MCHC (RBC) [Mass/Vol] 34.1 g/dL 31.9 - 36.5 g/dL [facility] MCV (RBC) [Entitic vol] 88.5 fL 79.0 - 94.5 fL [facility] Platelet mean volume (Bld) [Entitic vol] 10.7 fL 8.7 - 12.3 fL [facility] Platelets (Bld) [#/Vol] 220 10*3/uL 146 - 337 K/uL [facility] RBC (Bld) [#/Vol] 4.51 10*6/uL [facility] WBC (Bld) [#/Vol] 9.58 10*3/uL 3.73 - 10. 10 K/uL [facility] CHEM 7 (LYTES,BUN,CREA,GLUC) on 11-13-2022 Anion gap [Moles/Vol] 13 mmol/L Normal 7-17 [facility] Comment on above: Order Comment: After initiation a PTT should be checked every 6 hours from time of last dose change or, if dose has not changed, 6 hours after last PTT result posted.? The frequent monitoring should occur until PTT in goal range for two consecutive lab draws without dose changes at which time PTTs may be checked no less frequently than every 12 hours.? If dose requires a change, PTT should be monitored at least every 6 hours until titration is no longer indicated, then as directed above.? If PTT above goal range refer to medication administration instructions. Performed By: #### P TT #### [facility] (DEFAULT) [address] [place] [address] Chloride [Moles/Vol] 110 mmol/L High 98-108 [facility] Comment on above: Order Comment: After initiation a PTT should be checked every 6 hours from time of last dose change or, if dose has not changed, 6 hours after last PTT result posted.? The frequent monitoring should occur until PTT in goal range for two consecutive lab draws without dose changes at which time PTTs may be checked no less frequently than every 12 hours.? If dose requires a change, PTT should be monitored at least every 6 hours until titration is no longer indicated, then as directed above.? If PTT above goal range refer to medication administration instructions. Performed By: #### P TT #### [facility] (DEFAULT) [address] [place] [address] CO2 [Moles/Vol] 23 mmol/L Normal 21-31 [facility] Comment on above: Order Comment: After initiation a PTT should be checked every 6 hours from time of last dose change or, if dose has not changed, 6 hours after last PTT result posted.? The frequent monitoring should occur until PTT in goal range for two consecutive lab draws without dose changes at which time PTTs may be checked no less frequently than every 12 hours.? If dose requires a change, PTT should be monitored at least every 6 hours until titration is no longer indicated, then as directed above.? If PTT above goal range refer to medication administration instructions. Performed By: #### P TT #### [facility] (DEFAULT) [address] [address] Creatinine [Mass/Vol] 1.26 mg/dL Normal 0.70-1.30 [facility] Comment on above: Order Comment: After initiation a PTT should be checked every 6 hours from time of last dose change or, if dose has not changed, 6 hours after last PTT result posted.? The frequent monitoring should occur until PTT in goal range for two consecutive lab draws without dose changes at which time PTTs may be checked no less frequently than every 12 hours.? If dose requires a change, PTT should be monitored at least every 6 hours until titration is no longer indicated, then as directed above.? If PTT above goal range refer to medication administration instructions. Performed By: #### P TT #### [facility] (DEFAULT) [address] [address] GFR/1.73 sq M.predicted among non-blacks MDRD (S/P/Bld) [Vol rate/Area] 69 mL/min/{1.73_m2} Normal >=60 [facility] Comment on above: Order Comment: After initiation a PTT should be checked every 6 hours from time of last dose change or, if dose has not changed, 6 hours after last PTT result posted.? The frequent monitoring should occur until PTT in goal range for two consecutive lab draws without dose changes at which time PTTs may be checked no less frequently than every 12 hours.? If dose requires a change, PTT should be monitored at least every 6 hours until titration is no longer indicated, then as directed above.? If PTT above goal range refer to medication administration instructions. Result Comment: Repo rted eGFR is based on the CKD-EPI 2020 equation using creatinine, age, and sex. Performed By: #### P TT #### [facility] (DEFAULT) [address] [address] Glucose [Mass/Vol] 104 mg/dL High 70-99 [facility] Comment on above: Order Comment: After initiation a PTT should be checked every 6 hours from time of last dose change or, if dose has not changed, 6 hours after last PTT result posted.? The frequent monitoring should occur until PTT in goal range for two consecutive lab draws without dose changes at which time PTTs may be checked no less frequently than every 12 hours.? If dose requires a change, PTT should be monitored at least every 6 hours until titration is no longer indicated, then as directed above.? If PTT above goal range refer to medication administration instructions. Performed By: #### P TT #### [facility] (DEFAULT) [address] [address] Osmolality [Osmolality] 298 mosm/kg Normal 278-305 [facility] Comment on above: Order Comment: After initiation a PTT should be checked every 6 hours from time of last dose change or, if dose has not changed, 6 hours after last PTT result posted.? The frequent monitoring should occur until PTT in goal range for two consecutive lab draws without dose changes at which time PTTs may be checked no less frequently than every 12 hours.? If dose requires a change, PTT should be monitored at least every 6 hours until titration is no longer indicated, then as directed above.? If PTT above goal range refer to medication administration instructions. Performed By: #### P TT #### [facility] (DEFAULT) [address] [address] Potassium [Moles/Vol] 4.3 mmol/L Normal 3.5-5.0 [facility] Comment on above: Order Comment: After initiation a PTT should be checked every 6 hours from time of last dose change or, if dose has not changed, 6 hours after last PTT result posted.? The frequent monitoring should occur until PTT in goal range for two consecutive lab draws without dose changes at which time PTTs may be checked no less frequently than every 12 hours.? If dose requires a change, PTT should be monitored at least every 6 hours until titration is no longer indicated, then as directed above.? If PTT above goal range refer to medication administration instructions. Performed By: #### P TT #### [facility] (DEFAULT) [address] [address] Sodium [Moles/Vol] 142 mmol/L Normal 135-145 [facility] Comment on above: Order Comment: After initiation a PTT should be checked every 6 hours from time of last dose change or, if dose has not changed, 6 hours after last PTT result posted.? The frequent monitoring should occur until PTT in goal range for two consecutive lab draws without dose changes at which time PTTs may be checked no less frequently than every 12 hours.? If dose requires a change, PTT should be monitored at least every 6 hours until titration is no longer indicated, then as directed above.? If PTT above goal range refer to medication administration instructions. Performed By: #### P TT #### [facility] (DEFAULT) [address] [place] [address] Urea nitrogen [Mass/Vol] 16 mg/dL Normal 7-25 [facility] Comment on above: Order Comment: After initiation a PTT should be checked every 6 hours from time of last dose change or, if dose has not changed, 6 hours after last PTT result posted.? The frequent monitoring should occur until PTT in goal range for two consecutive lab draws without dose changes at which time PTTs may be checked no less frequently than every 12 hours.? If dose requires a change, PTT should be monitored at least every 6 hours until titration is no longer indicated, then as directed above.? If PTT above goal range refer to medication administration instructions. Performed By: #### P TT #### [facility] (DEFAULT) [address] [place] [address] Urea nitrogen/Creatinine [Mass ratio] 13 mg/mg Normal [facility] Comment on above: Order Comment: After initiation a PTT should be checked every 6 hours from time of last dose change or, if dose has not changed, 6 hours after last PTT result posted.? The frequent monitoring should occur until PTT in goal range for two consecutive lab draws without dose changes at which time PTTs may be checked no less frequently than every 12 hours.? If dose requires a change, PTT should be monitored at least every 6 hours until titration is no longer indicated, then as directed above.? If PTT above goal range refer to medication administration instructions. Performed By: #### P TT #### [facility] (DEFAULT) [address] [place] [address] Anion gap [Moles/Vol] 13 mmol/L 7 - 17 mmol/L [facility] Chloride [Moles/Vol] 110 mmol/L High 98 - 10 8 mmol/L [facility] CO2 [Moles/Vol] 23 mmol/L 21 - 31 mmol/L [facility] Creatinine [Mass/Vol] 1.26 mg/dL 0.70 - 1.30 mg/dL [facility] GFR/1.73 sq M.predicted CKD-EPI (S/P/Bld) [Vol rate/Area] 69 - PINF [facility] Glucose [Mass/Vol] 104 mg/dL High 70 - 99 mg/dL [facility] Interpretation and review of laboratory results Abnormal [facility] Osmolality Calc [Osmolality] 298 [facility] Potassium [Moles/Vol] 4.3 mmol/L 3.5 - 5.0 mmol/L [facility] Sodium [Moles/Vol] 142 mmol/L 135 - 145 mmol/L [facility] Urea nitrogen [Mass/Vol] 16 mg/dL 7 - 25 mg/dL [facility] Urea nitrogen/Creatinine [Mass ratio] 13 mg/mg [facility] Anion gap [Moles/Vol] 16 mmol/L Normal 7-17 [facility] Comment on above: Performed By: #### X M #### [facility] (DEFAULT) [address] [place] [address] Chloride [Moles/Vol] 106 mmol/L Normal 98-108 [facility] Comment on above: Performed By: #### X M #### [facility] (DEFAULT) [address] [place] [address] CO2 [Moles/Vol] 21 mmol/L Normal 21-31 [facility] Comment on above: Performed By: #### X M #### [facility] (DEFAULT) [address] [place] [address] Creatinine [Mass/Vol] 1.20 mg/dL Normal 0.70-1.30 [facility] Comment on above: Performed By: #### X M #### [facility] (DEFAULT) [address] [address] GFR/1.73 sq M.predicted among non-blacks MDRD (S/P/Bld) [Vol rate/Area] 74 mL/min/{1.73_m2} Normal >=60 [facility] Comment on above: Result Comment: Repo rted eGFR is based on the CKD-EPI 2020 equation using creatinine, age, and sex. Performed By: #### X M #### [facility] (DEFAULT) [address] [address] Glucose [Mass/Vol] 102 mg/dL High 70-99 [facility] Comment on above: Performed By: #### X M #### [facility] (DEFAULT) [address] [place] [address] Osmolality [Osmolality] 294 mosm/kg Normal 278-305 [facility] Comment on above: Performed By: #### X M #### [facility] (DEFAULT) [address] [place] [address] Potassium [Moles/Vol] 4.3 mmol/L Normal 3.5-5.0 [facility] Comment on above: Performed By: #### X M #### [facility] (DEFAULT) [address] [address] Sodium [Moles/Vol] 139 mmol/L Normal 135-145 [facility] Comment on above: Performed By: #### X M #### [facility] (DEFAULT) [address] [place] [address] Urea nitrogen [Mass/Vol] 19 mg/dL Normal 7-25 [facility] Comment on above: Performed By: #### X M #### [facility] (DEFAULT) [address] [place] [address] Urea nitrogen/Creatinine [Mass ratio] 16 mg/mg Normal [facility] Comment on above: Performed By: #### X M #### [facility] (DEFAULT) [address] [place] [address] Anion gap [Moles/Vol] 16 mmol/L 7 - 17 mmol/L [facility] Chloride [Moles/Vol] 106 mmol/L 98 - 10 8 mmol/L [facility] CO2 [Moles/Vol] 21 mmol/L 21 - 31 mmol/L [facility] Creatinine [Mass/Vol] 1.20 mg/dL 0.70 - 1.30 mg/dL [facility] GFR/1.73 sq M.predicted CKD-EPI (S/P/Bld) [Vol rate/Area] 74 - PINF [facility] Glucose [Mass/Vol] 102 mg/dL High 70 - 99 mg/dL [facility] Interpretation and review of laboratory results Abnormal [facility] Osmolality Calc [Osmolality] 294 [facility] Potassium [Moles/Vol] 4.3 mmol/L 3.5 - 5.0 mmol/L [facility] Sodium [Moles/Vol] 139 mmol/L 135 - 145 mmol/L [facility] Urea nitrogen [Mass/Vol] 19 mg/dL 7 - 25 mg/dL [facility] Urea nitrogen/Creatinine [Mass ratio] 16 mg/mg [facility] CONTINUOUS CARDIAC MONITORIN G STRIPon 11-13-2022 [facility] FIBRINOGEN, CLOTTABLEon 10-17 Fibrinogen-Clottable 233 mg/dL Normal 220-410 [facility] Comment on above: Result Comment: Func tional Fibrinogen (activity) levels can be affected by direct thrombin inhibitors such as heparins (>2.0 IU/ml) and dabigatran. Abnormal results should be interpreted with caution. Performed By: #### X M #### [facility] (DEFAULT) [address] [place] [address] Fibrinogen Coag (PPP) [Mass/Vol] 233 mg/dL 220 - 410 mg/dL [facility] Interpretation and review of laboratory results Normal [facility] GLUCOSE POCon 11-13-2022 Glucose [Mass/Vol] 168 mg/dL High 70 - 99 mg/dL [facility] Interpretation and review of laboratory results Abnormal [facility] POC Sample Type [facility] Glucose [Mass/Vol] 132 mg/dL High 70 - 99 mg/dL [facility] Interpretation and review of laboratory results Abnormal [facility] POC Sample Type ARTER [facility] Glucose [Mass/Vol] 87 mg/dL 70 - 99 mg/dL [facility] POC Sample Type ARTER [facility] Glucose [Mass/Vol] 97 mg/dL 70 - 99 mg/dL [facility] POC Sample Type ARTER [facility] Glucose [Mass/Vol] 118 mg/dL High 70 - 99 mg/dL [facility] Interpretation and review of laboratory results Abnormal [facility] POC Sample Type ARTER [facility] IONIZED CALCIUM, WHOLE BLOOD on 11-13-2022 ICA 4.12 mg/dL Low 4.60-5.30 [facility] Comment on above: Performed By: #### G AS5L #### [facility] (DEFAULT) [address] [place] [address] IONIZED CALCIUM, WHOLE BLOOD Ordered By: Makayla Mendosa on 11-13-2022 Calcium.ionized (Bld) [Moles/Vol] 4.12 mg/dL Low 4.60 - 5.30 mg/dL [facility] Interpretation and review of laboratory results Abnormal [facility] MAGNESIUMon 11-13-2022 Magnesium [Mass/Vol] 2.4 mg/dL Normal 1.6-2.6 [facility] Comment on above: Order Comment: First specimen to be drawn upon arrival to the unit. Performed By: #### M DONTE MILLSM7, IPB ####[facility] (DEFAULT)[address] [place] [address] Magnesium [Mass/Vol] 2.4 mg/dL 1.6 - 2 .6 mg/dL [facility] No Panel Informationon 11-13 ABO/RH(D) TYPE Positive [facility] BLOOD COMPONENT TYPE Red Cells, Leukoreduced [facility] Product ABO/RH(D) Positive [facility] Product ABO/RH(D) NUMBER 5100 [facility] PRODUCT CODE [id number] [facility] UNIT STATUS released [facility] Interpretation and review of laboratory results Normal [facility] PHOSPHATE, INORGANICon 11-13 Phosphorous 4.6 mg/dL Normal 2.2-4.6 [facility] Comment on above: Performed By: #### P TT #### [facility] (DEFAULT) [address] [place] [address] Phosphate [Mass/Vol] 4.6 mg/dL 2.2 - 4 .6 mg/dL [facility] POC ARTERIAL BLOOD GASon Base excess Calc (Bld) [Moles/Vol] -1.0000 mmol/L -3.0 - 3.0 mmol/L [facility] Calcium.ionized (Bld) [Mass/Vol] 4.90 mg/dL 4.60 - 5.30 mg/dL [facility] CO2 (Bld) [Partial pressure] 48 mm[Hg] [facility] Glucose [Mass/Vol] 164 mg/dL High 70 - 99 mg/dL [facility] HCO3 (Bld) [Moles/Vol] 23 mmol/L 22 - 28 mmol/L [facility] Hematocrit (Bld) [Volume fraction] 30.3 % Low 40.2 - 50.4 % [facility] Hemoglobin (Bld) [Mass/Vol] 9.9 g/dL Low 13.4 - 16.8 g/dL [facility] Interpretation and review of laboratory results Abnormal [facility] Lactate [Moles/Vol] 2.0 mmol/L High 0.5 - 1. 6 mmol/L [facility] Oxygen (Bld) [Partial pressure] 234 mm[Hg] High [facility] Oxygen saturation in Blood 100 % High 94 - 98 % [facility] pH (Bld) 7.33 [pH] Low 7.35 - 7.45 [facility] Potassium [Moles/Vol] 4.4 mmol/L 3.5 - 5.0 mmol/L [facility] Sodium [Moles/Vol] 141 mmol/L 135 - 145 mmol/L [facility] Specimen source Nom (Unsp spec) Arterial [facility] Base excess Calc (Bld) [Moles/Vol] 0.3 mmol/L -3.0 - 3.0 mmol/L [facility] Calcium.ionized (Bld) [Mass/Vol] 3.89 mg/dL Low 4.60 - 5.30 mg/dL [facility] CO2 (Bld) [Partial pressure] 46 mm[Hg] [facility] Glucose [Mass/Vol] 177 mg/dL High 70 - 99 mg/dL [facility] HCO3 (Bld) [Moles/Vol] 24 mmol/L 22 - 28 mmol/L [facility] Hematocrit (Bld) [Volume fraction] 29.8 % Low 40.2 - 50.4 % [facility] Hemoglobin (Bld) [Mass/Vol] 9.7 g/dL Low 13.4 - 16.8 g/dL [facility] Interpretation and review of laboratory results Abnormal [facility] Lactate [Moles/Vol] 1.9 mmol/L High 0.5 - 1. 6 mmol/L [facility] Oxygen (Bld) [Partial pressure] 269 mm[Hg] High [facility] Oxygen saturation in Blood 100 % High 94 - 98 % [facility] pH (Bld) 7.36 [pH] 7.35 - 7.45 [facility] Potassium [Moles/Vol] 5.3 mmol/L High 3.5 - 5.0 mmol/L [facility] Sodium [Moles/Vol] 141 mmol/L 135 - 145 mmol/L [facility] Specimen source Nom (Unsp spec) Arterial [facility] Base excess Calc (Bld) [Moles/Vol] -2.1000 mmol/L -3.0 - 3.0 mmol/L [facility] Calcium.ionized (Bld) [Mass/Vol] 3.80 mg/dL Low 4.60 - 5.30 mg/dL [facility] CO2 (Bld) [Partial pressure] 46 mm[Hg] [facility] Glucose [Mass/Vol] 195 mg/dL High 70 - 99 mg/dL [facility] HCO3 (Bld) [Moles/Vol] 23 mmol/L 22 - 28 mmol/L [facility] Hematocrit (Bld) [Volume fraction] 28.0 % Low 40.2 - 50.4 % [facility] Hemoglobin (Bld) [Mass/Vol] 9.1 g/dL Low 13.4 - 16.8 g/dL [facility] Interpretation and review of laboratory results Abnormal [facility] Lactate [Moles/Vol] 1.1 mmol/L 0.5 - 1. 6 mmol/L [facility] Oxygen (Bld) [Partial pressure] 317 mm[Hg] High [facility] Oxygen saturation in Blood 100 % High 94 - 98 % [facility] pH (Bld) 7.33 [pH] Low 7.35 - 7.45 [facility] Potassium [Moles/Vol] 5.0 mmol/L 3.5 - 5.0 mmol/L [facility] Sodium [Moles/Vol] 141 mmol/L 135 - 145 mmol/L [facility] Specimen source Nom (Unsp spec) Arterial [facility] Base excess Calc (Bld) [Moles/Vol] 0.3 mmol/L -3.0 - 3.0 mmol/L [facility] Calcium.ionized (Bld) [Mass/Vol] 4.06 mg/dL Low 4.60 - 5.30 mg/dL [facility] CO2 (Bld) [Partial pressure] 45 mm[Hg] [facility] Glucose [Mass/Vol] 187 mg/dL High 70 - 99 mg/dL [facility] HCO3 (Bld) [Moles/Vol] 25 mmol/L 22 - 28 mmol/L [facility] Hematocrit (Bld) [Volume fraction] 30.5 % Low 40.2 - 50.4 % [facility] Hemoglobin (Bld) [Mass/Vol] 9.9 g/dL Low 13.4 - 16.8 g/dL [facility] Interpretation and review of laboratory results Abnormal [facility] Lactate [Moles/Vol] 1.1 mmol/L 0.5 - 1. 6 mmol/L [facility] Oxygen (Bld) [Partial pressure] 355 mm[Hg] High [facility] Oxygen saturation in Blood 100 % High 94 - 98 % [facility] pH (Bld) 7.36 [pH] 7.35 - 7.45 [facility] Potassium [Moles/Vol] 6.6 mmol/L Critically high 3.5 - 5.0 mmol/L [facility] Sodium [Moles/Vol] 136 mmol/L 135 - 145 mmol/L [facility] Specimen source Nom (Unsp spec) Arterial [facility] Base excess Calc (Bld) [Moles/Vol] 1.2 mmol/L -3.0 - 3.0 mmol/L [facility] Calcium.ionized (Bld) [Mass/Vol] 4.08 mg/dL Low 4.60 - 5.30 mg/dL [facility] CO2 (Bld) [Partial pressure] 44 mm[Hg] [facility] Glucose [Mass/Vol] 150 mg/dL High 70 - 99 mg/dL [facility] HCO3 (Bld) [Moles/Vol] 25 mmol/L 22 - 28 mmol/L [facility] Hematocrit (Bld) [Volume fraction] 32.3 % Low 40.2 - 50.4 % [facility] Hemoglobin (Bld) [Mass/Vol] 10.5 g/dL Low 13.4 - 16.8 g/dL [facility] Interpretation and review of laboratory results Abnormal [facility] Lactate [Moles/Vol] 0.7 mmol/L 0.5 - 1. 6 mmol/L [facility] Oxygen (Bld) [Partial pressure] 416 mm[Hg] High [facility] Oxygen saturation in Blood 100 % High 94 - 98 % [facility] pH (Bld) 7.39 [pH] 7.35 - 7.45 [facility] Potassium [Moles/Vol] 6.0 mmol/L High 3.5 - 5.0 mmol/L [facility] Sodium [Moles/Vol] 138 mmol/L 135 - 145 mmol/L [facility] Specimen source Nom (Unsp spec) Arterial [facility] Base excess Calc (Bld) [Moles/Vol] 2.1 mmol/L -3.0 - 3.0 mmol/L [facility] Calcium.ionized (Bld) [Mass/Vol] 4.29 mg/dL Low 4.60 - 5.30 mg/dL [facility] CO2 (Bld) [Partial pressure] 62 mm[Hg] High [facility] Glucose [Mass/Vol] 161 mg/dL High 70 - 99 mg/dL [facility] HCO3 (Bld) [Moles/Vol] 25 mmol/L 22 - 28 mmol/L [facility] Hematocrit (Bld) [Volume fraction] 34.7 % Low 40.2 - 50.4 % [facility] Hemoglobin (Bld) [Mass/Vol] 11.3 g/dL Low 13.4 - 16.8 g/dL [facility] Interpretation and review of laboratory results Abnormal [facility] Lactate [Moles/Vol] 0.5 mmol/L 0.5 - 1. 6 mmol/L [facility] Oxygen (Bld) [Partial pressure] 447 mm[Hg] High [facility] Oxygen saturation in Blood 100 % High 94 - 98 % [facility] pH (Bld) 7.28 [pH] Low 7.35 - 7.45 [facility] Potassium [Moles/Vol] 6.9 mmol/L Critically high 3.5 - 5.0 mmol/L [facility] Sodium [Moles/Vol] 137 mmol/L 135 - 145 mmol/L [facility] Specimen source Nom (Unsp spec) Arterial [facility] Base excess Calc (Bld) [Moles/Vol] -4.2000 mmol/L Low -3.0 - 3.0 mmol/L [facility] Calcium.ionized (Bld) [Mass/Vol] 4.68 mg/dL 4.60 - 5.30 mg/dL [facility] CO2 (Bld) [Partial pressure] 64 mm[Hg] High [facility] Glucose [Mass/Vol] 142 mg/dL High 70 - 99 mg/dL [facility] HCO3 (Bld) [Moles/Vol] 20 mmol/L Low 22 - 28 mmol/L [facility] Hematocrit (Bld) [Volume fraction] 41.1 % 40.2 - 50.4 % [facility] Hemoglobin (Bld) [Mass/Vol] 13.4 g/dL 13.4 - 16.8 g/dL [facility] Interpretation and review of laboratory results Abnormal [facility] Lactate [Moles/Vol] 0.4 mmol/L Low 0.5 - 1. 6 mmol/L [facility] Oxygen (Bld) [Partial pressure] 437 mm[Hg] High [facility] Oxygen saturation in Blood 100 % High 94 - 98 % [facility] pH (Bld) 7.18 [pH] Critically low 7.35 - 7.45 [facility] Potassium [Moles/Vol] 4.7 mmol/L 3.5 - 5.0 mmol/L [facility] Sodium [Moles/Vol] 141 mmol/L 135 - 145 mmol/L [facility] Specimen source Nom (Unsp spec) Arterial [facility] Base excess Calc (Bld) [Moles/Vol] -3.0000 mmol/L -3.0 - 3.0 mmol/L [facility] Calcium.ionized (Bld) [Mass/Vol] 4.80 mg/dL 4.60 - 5.30 mg/dL [facility] CO2 (Bld) [Partial pressure] 46 mm[Hg] [facility] Glucose [Mass/Vol] 115 mg/dL High 70 - 99 mg/dL [facility] HCO3 (Bld) [Moles/Vol] 22 mmol/L 22 - 28 mmol/L [facility] Hematocrit (Bld) [Volume fraction] 41.2 % 40.2 - 50.4 % [facility] Hemoglobin (Bld) [Mass/Vol] 13.5 g/dL 13.4 - 16.8 g/dL [facility] Interpretation and review of laboratory results Abnormal [facility] Lactate [Moles/Vol] 0.5 mmol/L 0.5 - 1. 6 mmol/L [facility] Oxygen (Bld) [Partial pressure] 453 mm[Hg] High [facility] Oxygen saturation in Blood 100 % High 94 - 98 % [facility] pH (Bld) 7.31 [pH] Low 7.35 - 7.45 [facility] Potassium [Moles/Vol] 3.7 mmol/L 3.5 - 5.0 mmol/L [facility] Sodium [Moles/Vol] 141 mmol/L 135 - 145 mmol/L [facility] Specimen source Nom (Unsp spec) Arterial [facility] PREPARE TO TRANSFUSE OR RED BLOOD CELLSon 11-13-2022 EXPIRATION DATE [facility] EXPIRATION DATE [facility] UNIT NUMBER [id number] [facility] UNIT NUMBER [id number] [facility] PT,INR,PTTon 11-13-2022 aPTT Coag (Bld) [Time] 28.5 s Normal 24.0-34.3 [facility] Comment on above: Result Comment: Resu lts inconsistent with previous results Performed By: #### S CRSB #### [facility] (DEFAULT) [address] [place] [id number] INR Coag (PPP) [Relative time] 1.3 {INR} High 0.9-1.1 [facility] Comment on above: Performed By: #### S CRSB #### [facility] (DEFAULT) [address] [place] [address] PT Coag (PPP) [Time] 16.3 s High 11.9-14.2 [facility] Comment on above: Performed By: #### S CRSB #### [facility] (DEFAULT) [address] [place] [address] PT,INR,PTTOrdered By: Madison Gongora on 11-13-2022 aPTT Coag (PPP) [Time] 28.5 s [facility] INR Coag (Bld) [Relative time] 1.3 {INR} High 0.9 - 1.1 [facility] Interpretation and review of laboratory results Abnormal [facility] PT Coag (PPP) [Time] 16.3 s High [facility] PTTon 11-13-2022 aPTT Coag (Bld) [Time] 94.1 s High 24.0-34.3 [facility] Comment on above: Order Comment: After initiation a PTT should be checked every 6 hours from time of last dose change or, if dose has not changed, 6 hours after last PTT result posted.? The frequent monitoring should occur until PTT in goal range for two consecutive lab draws without dose changes at which time PTTs may be checked no less frequently than every 12 hours.? If dose requires a change, PTT should be monitored at least every 6 hours until titration is no longer indicated, then as directed above.? If PTT above goal range refer to medication administration instructions. Performed By: #### P TT ####[facility] (DEFAULT)[address] [place] [address] aPTT Coag (PPP) [Time] 94.1 s High [facility] Interpretation and review of laboratory results Abnormal [facility] aPTT Coag (Bld) [Time] 103.4 s High 24.0-34.3 [facility] Comment on above: Order Comment: After initiation a PTT should be checked every 6 hours from time of last dose change or, if dose has not changed, 6 hours after last PTT result posted.? The frequent monitoring should occur until PTT in goal range for two consecutive lab draws without dose changes at which time PTTs may be checked no less frequently than every 12 hours.? If dose requires a change, PTT should be monitored at least every 6 hours until titration is no longer indicated, then as directed above.? If PTT above goal range refer to medication administration instructions. Performed By: #### G AS5L #### [facility] (DEFAULT) [address] [place] [address] aPTT Coag (PPP) [Time] 103.4 s High OS [facility] Interpretation and review of laboratory results Abnormal [facility] Portable XR Chest Viewson Radiology Study observation (narrative) [facility] XR ABDOMEN 1 VIEW PORTABLEon 11-13-2022 XR ABDOMEN 1 VIEW PORTABLE EXAM: XR ABDOMEN 1 VIEW PORTABLE, 11/13/2022 21:01 PM COMPARISON: No prior abdominal radiographs available for comparison. CLINICAL INDICATIONS: postop heart surgery FINDINGS: Tubes: NG tube tip and side-port in the stomach with side-port just distal to the gastroesophageal junction No definite pneumoperitoneum or pneumatosis of the bowel wall. There is a non obstructive bowel gas pattern. Visualized osseous structures are unremarkable for the patient's age. IMPRESSION: The side-port of the enteric tube is just distal to the gastroesophageal junction. Consider advancement of 5 cm. Normal [facility] XR Abdomen Single viewon RADIOLOGY RADIOLOGY [facility] Radiology Study observation (narrative) [facility] XR Abdomen Single viewOrdere d By: Henrique Rizzo on 11-13-2022 [facility] Work Phone: CBC,PLATELETSon 11-12-2022 Hematocrit (Bld) [Volume fraction] 40.3 % Normal 39.6-48.8 [facility] Comment on above: Performed By: #### X M #### [facility] (DEFAULT) [address] [address] Hemoglobin (Bld) [Mass/Vol] 13.5 g/dL Normal 13.4-16.8 [facility] Comment on above: Performed By: #### X M #### [facility] (DEFAULT) [address] [place] [address] MCV (RBC) [Entitic vol] 87.2 fL Normal 79.0-94.5 [facility] Comment on above: Performed By: #### X M #### [facility] (DEFAULT) [address] [address] Mean Cell Hgb 29.2 pg Normal 26.1-33.3 [facility] Comment on above: Performed By: #### X M #### [facility] (DEFAULT) [address] [address] Mean Cell Hgb Conc 33.5 g/dL Normal 31.9-36.5 [facility] Comment on above: Performed By: #### X M #### [facility] (DEFAULT) [address] [place] [address] Platelet mean volume (Bld) [Entitic vol] 10.5 fL Normal 8.7-12.3 [facility] Comment on above: Performed By: #### X M #### [facility] (DEFAULT) [address] [place] [address] Platelets (Bld) [#/Vol] 207 10*3/uL Normal 146-337 [facility] Comment on above: Performed By: #### X M #### [facility] (DEFAULT) [address] [address] RBC (Bld) [#/Vol] 4.62 10*6/uL Normal 4.38-5.83 [facility] Comment on above: Performed By: #### X M #### [facility] (DEFAULT) [address] [address] RBC Distribution 14.1 % Normal 10.9-14.3 [facility] Comment on above: Performed By: #### X M #### [facility] (DEFAULT) [address] [address] WBC (Bld) [#/Vol] 9.59 10*3/uL Normal 3.73-10.10 [facility] Comment on above: Performed By: #### X M #### [facility] (DEFAULT) [address] [address] Erythrocyte distribution width (RBC) [Ratio] 14.1 % 10.9 - 14.3 % [facility] Hematocrit (Bld) [Volume fraction] 40.3 % 39.6 - 48.8 % [facility] Hemoglobin (Bld) [Mass/Vol] 13.5 g/dL 13.4 - 16.8 g/dL [facility] Interpretation and review of laboratory results Normal [facility] MCH (RBC) [Entitic mass] 29.2 pg 26.1 - 33.3 pg [facility] MCHC (RBC) [Mass/Vol] 33.5 g/dL 31.9 - 36.5 g/dL [facility] MCV (RBC) [Entitic vol] 87.2 fL 79.0 - 94.5 fL [facility] Platelet mean volume (Bld) [Entitic vol] 10.5 fL 8.7 - 12.3 fL [facility] Platelets (Bld) [#/Vol] 207 10*3/uL 146 - 337 K/uL [facility] RBC (Bld) [#/Vol] 4.62 10*6/uL [facility] WBC (Bld) [#/Vol] 9.59 10*3/uL 3.73 - 10. 10 K/uL [facility] CHEM 7 (LYTES,BUN,CREA,GLUC) on 11-12-2022 Anion gap [Moles/Vol] 14 mmol/L Normal 7-17 [facility] Comment on above: Performed By: #### X M #### [facility] (DEFAULT) [address] [place] [address] Chloride [Moles/Vol] 107 mmol/L Normal 98-108 [facility] Comment on above: Performed By: #### X M #### [facility] (DEFAULT) [address] [place] [address] CO2 [Moles/Vol] 21 mmol/L Normal 21-31 [facility] Comment on above: Performed By: #### X M #### [facility] (DEFAULT) [address] [address] Creatinine [Mass/Vol] 1.18 mg/dL Normal 0.70-1.30 [facility] Comment on above: Performed By: #### X M #### [facility] (DEFAULT) [address] [place] [address] GFR/1.73 sq M.predicted among non-blacks MDRD (S/P/Bld) [Vol rate/Area] 75 mL/min/{1.73_m2} Normal >=60 [facility] Comment on above: Result Comment: Repo rted eGFR is based on the CKD-EPI 2020 equation using creatinine, age, and sex. Performed By: #### X M #### [facility] (DEFAULT) [address] [place] [address] Glucose [Mass/Vol] 102 mg/dL High 70-99 [facility] Comment on above: Performed By: #### X M #### [facility] (DEFAULT) [address] [place] [address] Osmolality [Osmolality] 291 mosm/kg Normal 278-305 [facility] Comment on above: Performed By: #### X M #### [facility] (DEFAULT) [address] [place] [address] Potassium [Moles/Vol] 4.4 mmol/L Normal 3.5-5.0 [facility] Comment on above: Performed By: #### X M #### [facility] (DEFAULT) [address] [place] [address] Sodium [Moles/Vol] 138 mmol/L Normal 135-145 [facility] Comment on above: Performed By: #### X M #### [facility] (DEFAULT) [address] [place] [address] Urea nitrogen [Mass/Vol] 17 mg/dL Normal 7-25 [facility] Comment on above: Performed By: #### X M #### [facility] (DEFAULT) [address] [address] Urea nitrogen/Creatinine [Mass ratio] 14 mg/mg Normal [facility] Comment on above: Performed By: #### X M #### [facility] (DEFAULT) [address] [place] [address] Anion gap [Moles/Vol] 14 mmol/L 7 - 17 mmol/L [facility] Chloride [Moles/Vol] 107 mmol/L 98 - 10 8 mmol/L [facility] CO2 [Moles/Vol] 21 mmol/L 21 - 31 mmol/L [facility] Creatinine [Mass/Vol] 1.18 mg/dL 0.70 - 1.30 mg/dL [facility] GFR/1.73 sq M.predicted CKD-EPI (S/P/Bld) [Vol rate/Area] 75 - PINF [facility] Glucose [Mass/Vol] 102 mg/dL High 70 - 99 mg/dL [facility] Interpretation and review of laboratory results Abnormal [facility] Osmolality Calc [Osmolality] 291 [facility] Potassium [Moles/Vol] 4.4 mmol/L 3.5 - 5.0 mmol/L [facility] Sodium [Moles/Vol] 138 mmol/L 135 - 145 mmol/L [facility] Urea nitrogen [Mass/Vol] 17 mg/dL 7 - 25 mg/dL [facility] Urea nitrogen/Creatinine [Mass ratio] 14 mg/mg [facility] CONTINUOUS CARDIAC MONITORIN G STRIPon 11-12-2022 [facility] PTTon 11-12-2022 aPTT Coag (Bld) [Time] 85.4 s High 24.0-34.3 [facility] Comment on above: Order Comment: After initiation a PTT should be checked every 6 hours from time of last dose change or, if dose has not changed, 6 hours after last PTT result posted.? The frequent monitoring should occur until PTT in goal range for two consecutive lab draws without dose changes at which time PTTs may be checked no less frequently than every 12 hours.? If dose requires a change, PTT should be monitored at least every 6 hours until titration is no longer indicated, then as directed above.? If PTT above goal range refer to medication administration instructions. Performed By: #### P TT #### [facility] (DEFAULT) [address] [place] [address] aPTT Coag (PPP) [Time] 85.4 s High OS [facility] Interpretation and review of laboratory results Abnormal [facility] aPTT Coag (Bld) [Time] 87.2 s High 24.0-34.3 [facility] Comment on above: Order Comment: Colle ct with an ESWAB - Anterior Nares for MRSA + MSSA This test was performed using a real time PCR assay. Results should be interpreted in conjunction with other clinical and laboratory findings. A positive result does not necessarily indicate the presence of viable organism. This test should not be used as a test of cure. For E-swab specimens, this test was developed and its performance characteristics determined by the Clinical Microbiology Laboratory at [facility]. It has not been cleared or approved by the FDA.The laboratory is regulated under CLIA as qualified to perform high-complexity testing. This test is used for clinical purposes. It should not be regarded as investigational or for research. Performed By: #### S CRSB #### [facility] (DEFAULT) [address] [address] aPTT Coag (PPP) [Time] 87.2 s High [facility] Interpretation and review of laboratory results Abnormal [facility] TYPE AND SCREENon 11-12-2022 ABO/RH(D) TYPE Positive Normal [facility] Comment on above: Performed By: #### U LYTR, UCRER #### [facility] (DEFAULT) [address] [address] ABO/RH(D) TYPE Positive [facility] CBC,PLATELETSon 11-11-2022 Hematocrit (Bld) [Volume fraction] 38.4 % Low 39.6-48.8 [facility] Comment on above: Performed By: #### S CRSB #### [facility] (DEFAULT) [address] [place] [address] Hemoglobin (Bld) [Mass/Vol] 12.9 g/dL Low 13.4-16.8 [facility] Comment on above: Performed By: #### S CRSB #### [facility] (DEFAULT) [address] [address] MCV (RBC) [Entitic vol] 87.7 fL Normal 79.0-94.5 [facility] Comment on above: Performed By: #### S CRSB #### [facility] (DEFAULT) [address] [address] Mean Cell Hgb 29.5 pg Normal 26.1-33.3 [facility] Comment on above: Performed By: #### S CRSB #### [facility] (DEFAULT) [address] [address] Mean Cell Hgb Conc 33.6 g/dL Normal 31.9-36.5 [facility] Comment on above: Performed By: #### S CRSB #### [facility] (DEFAULT) [address] [address] Platelet mean volume (Bld) [Entitic vol] 10.4 fL Normal 8.7-12.3 [facility] Comment on above: Performed By: #### S CRSB #### [facility] (DEFAULT) [address] [address] Platelets (Bld) [#/Vol] 182 10*3/uL Normal 146-337 [facility] Comment on above: Performed By: #### S CRSB #### [facility] (DEFAULT) [address] [address] RBC (Bld) [#/Vol] 4.38 10*6/uL Normal 4.38-5.83 [facility] Comment on above: Performed By: #### S CRSB #### [facility] (DEFAULT) [address] [address] RBC Distribution 14.0 % Normal 10.9-14.3 [facility] Comment on above: Performed By: #### S CRSB #### [facility] (DEFAULT) [address] [place] [address] WBC (Bld) [#/Vol] 8.72 10*3/uL Normal 3.73-10.10 [facility] Comment on above: Performed By: #### S CRSB #### [facility] (DEFAULT) [address] [place] [address] Erythrocyte distribution width (RBC) [Ratio] 14.0 % 10.9 - 14.3 % [facility] Hematocrit (Bld) [Volume fraction] 38.4 % Low 39.6 - 48.8 % [facility] Hemoglobin (Bld) [Mass/Vol] 12.9 g/dL Low 13.4 - 16.8 g/dL [facility] Interpretation and review of laboratory results Abnormal [facility] MCH (RBC) [Entitic mass] 29.5 pg 26.1 - 33.3 pg [facility] MCHC (RBC) [Mass/Vol] 33.6 g/dL 31.9 - 36.5 g/dL [facility] MCV (RBC) [Entitic vol] 87.7 fL 79.0 - 94.5 fL [facility] Platelet mean volume (Bld) [Entitic vol] 10.4 fL 8.7 - 12.3 fL [facility] Platelets (Bld) [#/Vol] 182 10*3/uL 146 - 337 K/uL [facility] RBC (Bld) [#/Vol] 4.38 10*6/uL [facility] WBC (Bld) [#/Vol] 8.72 10*3/uL 3.73 - 10. 10 K/uL [facility] CHEM 7 (LYTES,BUN,CREA,GLUC) on 11-11-2022 Anion gap [Moles/Vol] 11 mmol/L Normal 7-17 [facility] Comment on above: Performed By: #### X M #### [facility] (DEFAULT) [address] [place] [address] Chloride [Moles/Vol] 108 mmol/L Normal 98-108 [facility] Comment on above: Performed By: #### X M #### [facility] (DEFAULT) [address] [place] [address] CO2 [Moles/Vol] 25 mmol/L Normal 21-31 [facility] Comment on above: Performed By: #### X M #### [facility] (DEFAULT) [address] [place] [address] Creatinine [Mass/Vol] 1.24 mg/dL Normal 0.70-1.30 [facility] Comment on above: Performed By: #### X M #### [facility] (DEFAULT) [address] [address] GFR/1.73 sq M.predicted among non-blacks MDRD (S/P/Bld) [Vol rate/Area] 71 mL/min/{1.73_m2} Normal >=60 [facility] Comment on above: Result Comment: Repo rted eGFR is based on the CKD-EPI 2020 equation using creatinine, age, and sex. Performed By: #### X M #### [facility] (DEFAULT) [address] [address] Glucose [Mass/Vol] 104 mg/dL High 70-99 [facility] Comment on above: Performed By: #### X M #### [facility] (DEFAULT) [address] [place] [address] Osmolality [Osmolality] 296 mosm/kg Normal 278-305 [facility] Comment on above: Performed By: #### X M #### [facility] (DEFAULT) [address] [place] [address] Potassium [Moles/Vol] 4.3 mmol/L Normal 3.5-5.0 [facility] Comment on above: Performed By: #### X M #### [facility] (DEFAULT) [address] [address] Sodium [Moles/Vol] 140 mmol/L Normal 135-145 [facility] Comment on above: Performed By: #### X M #### [facility] (DEFAULT) [address] [place] [address] Urea nitrogen [Mass/Vol] 19 mg/dL Normal 7-25 [facility] Comment on above: Performed By: #### X M #### [facility] (DEFAULT) [address] [place] [address] Urea nitrogen/Creatinine [Mass ratio] 15 mg/mg Normal [facility] Comment on above: Performed By: #### X M #### [facility] (DEFAULT) [address] [place] [address] Anion gap [Moles/Vol] 11 mmol/L 7 - 17 mmol/L [facility] Chloride [Moles/Vol] 108 mmol/L 98 - 10 8 mmol/L [facility] CO2 [Moles/Vol] 25 mmol/L 21 - 31 mmol/L [facility] Creatinine [Mass/Vol] 1.24 mg/dL 0.70 - 1.30 mg/dL [facility] GFR/1.73 sq M.predicted CKD-EPI (S/P/Bld) [Vol rate/Area] 71 - PINF [facility] Glucose [Mass/Vol] 104 mg/dL High 70 - 99 mg/dL [facility] Interpretation and review of laboratory results Abnormal [facility] Osmolality Calc [Osmolality] 296 [facility] Potassium [Moles/Vol] 4.3 mmol/L 3.5 - 5.0 mmol/L [facility] Sodium [Moles/Vol] 140 mmol/L 135 - 145 mmol/L [facility] Urea nitrogen [Mass/Vol] 19 mg/dL 7 - 25 mg/dL [facility] Urea nitrogen/Creatinine [Mass ratio] 15 mg/mg [facility] CONTINUOUS CARDIAC MONITORIN G STRIPon 11-11-2022 [facility] PTTon 01-28-2023 aPTT Coag (Bld) [Time] 84.0 s High 24.0-34.3 [facility] Comment on above: Order Comment: After initiation a PTT should be checked every 6 hours from time of last dose change or, if dose has not changed, 6 hours after last PTT result posted.? The frequent monitoring should occur until PTT in goal range for two consecutive lab draws without dose changes at which time PTTs may be checked no less frequently than every 12 hours.? If dose requires a change, PTT should be monitored at least every 6 hours until titration is no longer indicated, then as directed above.? If PTT above goal range refer to medication administration instructions. Performed By: #### P TT ####[facility] (DEFAULT)[address] [address] aPTT Coag (PPP) [Time] 84.0 s High OS [facility] Interpretation and review of laboratory results Abnormal [facility] aPTT Coag (Bld) [Time] 79.2 s High 24.0-34.3 [facility] Comment on above: Order Comment: After initiation a PTT should be checked every 6 hours from time of last dose change or, if dose has not changed, 6 hours after last PTT result posted.? The frequent monitoring should occur until PTT in goal range for two consecutive lab draws without dose changes at which time PTTs may be checked no less frequently than every 12 hours.? If dose requires a change, PTT should be monitored at least every 6 hours until titration is no longer indicated, then as directed above.? If PTT above goal range refer to medication administration instructions. Performed By: #### G AS5L #### [facility] (DEFAULT) [address] [place] [address] aPTT Coag (PPP) [Time] 79.2 s High OS [facility] Interpretation and review of laboratory results Abnormal [facility] aPTT Coag (Bld) [Time] 99.9 s High 24.0-34.3 [facility] Comment on above: Order Comment: After initiation a PTT should be checked every 6 hours from time of last dose change or, if dose has not changed, 6 hours after last PTT result posted.? The frequent monitoring should occur until PTT in goal range for two consecutive lab draws without dose changes at which time PTTs may be checked no less frequently than every 12 hours.? If dose requires a change, PTT should be monitored at least every 6 hours until titration is no longer indicated, then as directed above.? If PTT above goal range refer to medication administration instructions. Performed By: #### G AS5L #### [facility] (DEFAULT) [address] [place] [address] CBC,PLATELETSon 11-10-2022 Hematocrit (Bld) [Volume fraction] 38.8 % Low 39.6-48.8 [facility] Comment on above: Performed By: #### H EMOGC ####[facility] (DEFAULT)[address] [address] Hemoglobin (Bld) [Mass/Vol] 13.1 g/dL Low 13.4-16.8 [facility] Comment on above: Performed By: #### H EMOGC ####[facility] (DEFAULT)[address] [address] MCV (RBC) [Entitic vol] 87.8 fL Normal 79.0-94.5 [facility] Comment on above: Performed By: #### H EMOGC ####[facility] (DEFAULT)[address] [place] [address] Mean Cell Hgb 29.6 pg Normal 26.1-33.3 [facility] Comment on above: Performed By: #### H EMOGC ####[facility] (DEFAULT)[address] [place] [address] Mean Cell Hgb Conc 33.8 g/dL Normal 31.9-36.5 [facility] Comment on above: Performed By: #### H EMOGC ####[facility] (DEFAULT)[address] [place] [address] Platelet mean volume (Bld) [Entitic vol] 10.5 fL Normal 8.7-12.3 [facility] Comment on above: Performed By: #### H EMO ####[facility] (DEFAULT)[address] [facility] [place] [address] Platelets (Bld) [#/Vol] 213 10*3/uL Normal 146-337 [facility] Comment on above: Performed By: #### H EMO ####[facility] (DEFAULT)[address] [place] [address] RBC (Bld) [#/Vol] 4.42 10*6/uL Normal 4.38-5.83 [facility] Comment on above: Performed By: #### H EMO ####[facility] (DEFAULT)[address] [place] [address] RBC Distribution 14.1 % Normal 10.9-14.3 [facility] Comment on above: Performed By: #### H EMO ####[facility] (DEFAULT)[address] [place] [address] WBC (Bld) [#/Vol] 8.73 10*3/uL Normal 3.73-10.10 [facility] Comment on above: Performed By: #### H [facility] ####[facility] (DEFAULT)[address] [place] [address] Erythrocyte distribution width (RBC) [Ratio] 14.1 % 10.9 - 14.3 % [facility] Hematocrit (Bld) [Volume fraction] 38.8 % Low 39.6 - 48.8 % [facility] Hemoglobin (Bld) [Mass/Vol] 13.1 g/dL Low 13.4 - 16.8 g/dL [facility] Interpretation and review of laboratory results Abnormal [facility] MCH (RBC) [Entitic mass] 29.6 pg 26.1 - 33.3 pg [facility] MCHC (RBC) [Mass/Vol] 33.8 g/dL 31.9 - 36.5 g/dL [facility] MCV (RBC) [Entitic vol] 87.8 fL 79.0 - 94.5 fL [facility] Platelet mean volume (Bld) [Entitic vol] 10.5 fL 8.7 - 12.3 fL [facility] Platelets (Bld) [#/Vol] 213 10*3/uL 146 - 337 K/uL [facility] RBC (Bld) [#/Vol] 4.42 10*6/uL [facility] WBC (Bld) [#/Vol] 8.73 10*3/uL 3.73 - 10. 10 K/uL [facility] CHEM 7 (LYTES,BUN,CREA,GLUC) on 11-10-2022 Anion gap [Moles/Vol] 13 mmol/L Normal 7-17 [facility] Comment on above: Performed By: #### C HM7 ####[facility] (DEFAULT)[address] [place] [address] Chloride [Moles/Vol] 108 mmol/L Normal 98-108 [facility] Comment on above: Performed By: #### C HM7 ####[facility] (DEFAULT)[address] [place] [address] CO2 [Moles/Vol] 24 mmol/L Normal 21-31 [facility] Comment on above: Performed By: #### C HM7 ####[facility] (DEFAULT)[address] [place] [address] Creatinine [Mass/Vol] 1.08 mg/dL Normal 0.70-1.30 [facility] Comment on above: Performed By: #### C HM7 ####[facility] (DEFAULT)[address] [place] [address] GFR/1.73 sq M.predicted among non-blacks MDRD (S/P/Bld) [Vol rate/Area] 84 mL/min/{1.73_m2} Normal >=60 [facility] Comment on above: Result Comment: Repo rted eGFR is based on the CKD-EPI 2020 equation using creatinine, age, and sex. Performed By: #### C HM7 ####[facility] (DEFAULT)[address] [place] [address] Glucose [Mass/Vol] 114 mg/dL High 70-99 [facility] Comment on above: Performed By: #### C HM7 ####[facility] (DEFAULT)[address] [place] [address] Osmolality [Osmolality] 298 mosm/kg Normal 278-305 [facility] Comment on above: Performed By: #### C HM7 ####[facility] (DEFAULT)[address] [place] [address] Potassium [Moles/Vol] 4.0 mmol/L Normal 3.5-5.0 [facility] Comment on above: Performed By: #### C HM7 ####[facility] (DEFAULT)[address] [place] [address] Sodium [Moles/Vol] 141 mmol/L Normal 135-145 [facility] Comment on above: Performed By: #### C HM7 ####[facility] (DEFAULT)[address] [place] [address] Urea nitrogen [Mass/Vol] 19 mg/dL Normal 7-25 [facility] Comment on above: Performed By: #### C HM7 ####[facility] (DEFAULT)[address] [place] [address] Urea nitrogen/Creatinine [Mass ratio] 18 mg/mg Normal [facility] Comment on above: Performed By: #### C HM7 ####[facility] (DEFAULT)[address] [place] [address] Anion gap [Moles/Vol] 13 mmol/L 7 - 17 mmol/L [facility] Chloride [Moles/Vol] 108 mmol/L 98 - 10 8 mmol/L [facility] CO2 [Moles/Vol] 24 mmol/L 21 - 31 mmol/L [facility] Creatinine [Mass/Vol] 1.08 mg/dL 0.70 - 1.30 mg/dL [facility] GFR/1.73 sq M.predicted CKD-EPI (S/P/Bld) [Vol rate/Area] 84 - PINF [facility] Glucose [Mass/Vol] 114 mg/dL High 70 - 99 mg/dL [facility] Interpretation and review of laboratory results Abnormal [facility] Osmolality Calc [Osmolality] 298 [facility] Potassium [Moles/Vol] 4.0 mmol/L 3.5 - 5.0 mmol/L [facility] Sodium [Moles/Vol] 141 mmol/L 135 - 145 mmol/L [facility] Urea nitrogen [Mass/Vol] 19 mg/dL 7 - 25 mg/dL [facility] Urea nitrogen/Creatinine [Mass ratio] 18 mg/mg [facility] CONTINUOUS CARDIAC MONITORIN G STRIPon 11-10-[address] [facility] [address] CHEST WITHOUT CONTRASTon 11-10-2022 CT CHEST WITHOUT CONTRAST EXAM: CT CHEST WITHOUT CONTRAST, 11/09/2022 16:18 PM COMPARISON: No Available Comparisons. CLINICAL INDICATIONS: CABG work up; RELEVANT CLINICAL HISTORY: TECHNIQUE: CT images of the chest were obtained without intravenous contrast. FINDINGS: Lungs and Pleura: The lungs are well aerated with mild bibasilar atelectasis. Mild centrilobular and paraseptal emphysema. There are a few tiny calcified and non calcified pulmonary nodules, likely granulomas. No suspicious nodule. No consolidation. No pleural fluid. Tracheobronchial tree: No abnormality. Mediastinum/[place]: No mediastinal or hilar lymphadenopathy. Axilla and Supraclavicular Regions: No axillary or supraclavicular adenopathy. Cardiovascular: The cardiac chambers are within normal limits. The pericardium is normal. There is multivessel coronary atherosclerosis. The aorta and its arch branch vessels are unremarkable. The pulmonary arteries are also unremarkable. Upper Abdomen: Limited evaluation of upper abdominal contents. There is an ill-defined hyperdense region in the superior pole of the left kidney (series 2 image 65). Bones and Soft Tissue: No suspicious osseous lesion. Chronic appearing deformity of the right fifth rib. IMPRESSION: 1. The lungs are well aerated with mild emphysematous changes. No acute or neoplastic process within the chest. 2. Multivessel coronary atherosclerosis. 3. There is an indeterminant high density region in the superior pole of the left kidney. Consider further evaluation with dedicated renal CT or MRI as clinically indicated. I personally viewed and interpreted these images and I have reviewed and approved this report. Normal [facility] CT Chest WO contraston 11-10 RADIOLOGY RADIOLOGY [facility] CT Chest WO contrastOrdered By: Aura Kline on 11-10-2022 [facility] Work Phone: EXTRA MICROon 11-10-2022 [facility] No Panel InformationOrdered By: Lidya Flores on 11-10-2022 [facility] Work Phone: PFT STANDARDon 11-10-2022 [facility] PTTOrdered By: Dilma mariano on 11-10-2022 aPTT Coag (PPP) [Time] 99.9 s High [facility] Interpretation and review of laboratory results Abnormal [facility] PTTon 11-10-2022 aPTT Coag (Bld) [Time] 70.1 s High 24.0-34.3 [place] [facility] Comment on above: Order Comment: After initiation a PTT should be checked every 6 hours from time of last dose change or, if dose has not changed, 6 hours after last PTT result posted.? The frequent monitoring should occur until PTT in goal range for two consecutive lab draws without dose changes at which time PTTs may be checked no less frequently than every 12 hours.? If dose requires a change, PTT should be monitored at least every 6 hours until titration is no longer indicated, then as directed above.? If PTT above goal range refer to medication administration instructions. Performed By: #### G AS5L #### [facility] (DEFAULT) [address] [address] aPTT Coag (Bld) [Time] 110.4 s High 24.0-34.3 [facility] Comment on above: Order Comment: After initiation a PTT should be checked every 6 hours from time of last dose change or, if dose has not changed, 6 hours after last PTT result posted.? The frequent monitoring should occur until PTT in goal range for two consecutive lab draws without dose changes at which time PTTs may be checked no less frequently than every 12 hours.? If dose requires a change, PTT should be monitored at least every 6 hours until titration is no longer indicated, then as directed above.? If PTT above goal range refer to medication administration instructions. Performed By: #### P TT #### [facility] (DEFAULT) [address] [address] aPTT Coag (Bld) [Time] 64.5 s High 24.0-34.3 [facility] Comment on above: Order Comment: Colle ct with an ESWAB - Anterior Nares for MRSA + MSSA This test was performed using a real time PCR assay. Results should be interpreted in conjunction with other clinical and laboratory findings. A positive result does not necessarily indicate the presence of viable organism. This test should not be used as a test of cure. For E-swab specimens, this test was developed and its performance characteristics determined by the Clinical Microbiology Laboratory at [facility]. It has not been cleared or approved by the FDA.The laboratory is regulated under CLIA as qualified to perform high-complexity testing. This test is used for clinical purposes. It should not be regarded as investigational or for research. Performed By: #### S CRSB #### [facility] (DEFAULT) [address] [address] aPTT Coag (PPP) [Time] 64.5 s High [facility] Interpretation and review of laboratory results Abnormal [facility] PTTOrdered By: Darlene Mancera on 11-10-2022 aPTT Coag (PPP) [Time] 70.1 s High OS [facility] Interpretation and review of laboratory results Abnormal [facility] PTTOrdered By: Carrie Martin on 11-10-2022 aPTT Coag (PPP) [Time] 110.4 s High OS [facility] Interpretation and review of laboratory results Abnormal [facility] US.doppler Carotid arteries - bilateralon 11-10-2022 Radiology Study observation (narrative) [facility] US.doppler Lower extremity v ein - bilateralon 11-10-2022 [facility] Radiology Study observation (narrative) [facility] US.doppler Upper extremity a rtery - lefton 11-10-2022 Radiology Study observation (narrative) [facility] ABORH TYPE RECONFIRMATIONon 11-09-2022 ABO/RH(D) TYPE Positive [facility] ABO/RH(D) TYPE Positive Normal [facility] Comment on above: Performed By: #### T YPEC #### [facility] (DEFAULT) [address] [address] CALCIUMon 11-09-2022 Calcium [Mass/Vol] 8.9 mg/dL Normal 8.6-10.5 [facility] Comment on above: Performed By: #### P TT #### [facility] (DEFAULT) [address] [address] Calcium [Mass/Vol] 8.9 mg/dL 8.6 - 10. 5 mg/dL [facility] CBC AND ELECTRONIC DIFFon Basophils (Bld) [#/Vol] 0.09 10*3/uL Normal 0.00-0.09 [facility] Comment on above: Performed By: #### S CRSB #### [facility] (DEFAULT) [address] [address] Basophils/100 WBC (Bld) 1.0 % Normal [facility] Comment on above: Performed By: #### S CRSB #### [facility] (DEFAULT) [address] [address] DIFF STATUS Electronic Differential Normal [facility] Comment on above: Performed By: #### S CRSB #### [facility] (DEFAULT) [address] [address] Eosinophils (Bld) [#/Vol] 0.29 10*3/uL Normal 0.00-0.48 [facility] Comment on above: Performed By: #### S CRSB #### [facility] (DEFAULT) [address] [address] Eosinophils/100 WBC (Bld) 3.2 % Normal [facility] Comment on above: Performed By: #### S CRSB #### [facility] (DEFAULT) [address] [address] Hematocrit (Bld) [Volume fraction] 39.7 % Normal 39.6-48.8 [facility] Comment on above: Performed By: #### S CRSB #### [facility] (DEFAULT) [address] [address] Hemoglobin (Bld) [Mass/Vol] 13.4 g/dL Normal 13.4-16.8 [facility] Comment on above: Performed By: #### S CRSB #### [facility] (DEFAULT) [address] [address] Immature Grans % 0.2 % Normal [facility] Comment on above: Performed By: #### S CRSB #### [facility] (DEFAULT) [address] [address] Immature Grans Absolute < Normal <=0.07 [facility] Comment on above: Performed By: #### S CRSB #### [facility] (DEFAULT) [address] [address] Lymphocytes (Bld) [#/Vol] 4.26 10*3/uL High 0.83-3.57 [facility] Comment on above: Performed By: #### S CRSB #### [facility] (DEFAULT) [address] [address] Lymphocytes/100 WBC (Bld) 46.7 % Normal [facility] Comment on above: Performed By: #### S CRSB #### [facility] (DEFAULT) [address] [address] MCV (RBC) [Entitic vol] 87.8 fL Normal 79.0-94.5 [facility] Comment on above: Performed By: #### S CRSB #### [facility] (DEFAULT) [address] [address] Mean Cell Hgb 29.6 pg Normal 26.1-33.3 [facility] Comment on above: Performed By: #### S CRSB #### [facility] (DEFAULT) [address] [address] Mean Cell Hgb Conc 33.8 g/dL Normal 31.9-36.5 [facility] Comment on above: Performed By: #### S CRSB #### [facility] (DEFAULT) [address] [address] Monocytes (Bld) [#/Vol] 0.86 10*3/uL Normal 0.24-0.93 [facility] Comment on above: Performed By: #### S CRSB #### [facility] (DEFAULT) [address] [address] Monocytes/100 WBC (Bld) 9.4 % Normal [facility] Comment on above: Performed By: #### S CRSB #### [facility] (DEFAULT) [address] [address] Nucleated RBC 0.0 /100 WBC Normal <=0.2 [facility] Comment on above: Performed By: #### S CRSB #### [facility] (DEFAULT) [address] [address] Platelet mean volume (Bld) [Entitic vol] 10.3 fL Normal 8.7-12.3 [facility] Comment on above: Performed By: #### S CRSB #### [facility] (DEFAULT) [address] [place] [address] Platelets (Bld) [#/Vol] 202 10*3/uL Normal 146-337 [facility] Comment on above: Performed By: #### S CRSB #### [facility] (DEFAULT) [address] [address] RBC (Bld) [#/Vol] 4.52 10*6/uL Normal 4.38-5.83 [facility] Comment on above: Performed By: #### S CRSB #### [facility] (DEFAULT) [address] [place] [address] RBC Distribution 14.5 % High 10.9-14.3 [facility] Comment on above: Performed By: #### S CRSB #### [facility] (DEFAULT) [address] [place] [address] Segs + Bands Auto 39.5 % Normal [facility] Comment on above: Performed By: #### S CRSB #### [facility] (DEFAULT) [address] [place] [address] Segs + Bands,Absolute Auto 3.60 K/uL Normal 1.57-6.19 [facility] Comment on above: Performed By: #### S CRSB #### [facility] (DEFAULT) [address] [place] [address] WBC (Bld) [#/Vol] 9.12 10*3/uL Normal 3.73-10.10 [facility] Comment on above: Performed By: #### S CRSB #### [facility] (DEFAULT) [address] [place] [address] Basophils (Bld) [#/Vol] 0.09 10*3/uL 0.00 - 0.09 K/uL [facility] Basophils/100 WBC (Bld) 1.0 % [facility] Differential cell count method Nom (Bld) Electronic Differential [facility] Eosinophils (Bld) [#/Vol] 0.29 10*3/uL 0.00 - 0.48 K/uL [facility] Eosinophils/100 WBC (Bld) 3.2 % [facility] Erythrocyte distribution width (RBC) [Ratio] 14.5 % High 10.9 - 14.3 % [facility] Hematocrit (Bld) [Volume fraction] 39.7 % 39.6 - 48.8 % [facility] Hemoglobin (Bld) [Mass/Vol] 13.4 g/dL 13.4 - 16.8 g/dL [facility] Immature granulocytes (Bld) [#/Vol] K/uL NINF - 0.07 K/uL [facility] Immature granulocytes/100 WBC (Bld) 0.2 % [facility] Interpretation and review of laboratory results Abnormal [facility] Lymphocytes (Bld) [#/Vol] 4.26 10*3/uL High 0.83 - 3.57 K/uL [facility] Lymphocytes/100 WBC (Bld) 46.7 % [facility] MCH (RBC) [Entitic mass] 29.6 pg 26.1 - 33.3 pg [facility] MCHC (RBC) [Mass/Vol] 33.8 g/dL 31.9 - 36.5 g/dL [facility] MCV (RBC) [Entitic vol] 87.8 fL 79.0 - 94.5 fL [facility] Monocytes (Bld) [#/Vol] 0.86 10*3/uL 0.24 - 0.93 K/uL [facility] Monocytes/100 WBC (Bld) 9.4 % [facility] Neutrophils (Bld) [#/Vol] 3.60 10*3/uL 1.57 - 6.19 K/uL [facility] Nucleated RBC/100 WBC (Bld) [Ratio] 0.0 % NINF [facility] Platelet mean volume (Bld) [Entitic vol] 10.3 fL 8.7 - 12.3 fL [facility] Platelets (Bld) [#/Vol] 202 10*3/uL 146 - 337 K/uL [facility] RBC (Bld) [#/Vol] 4.52 10*6/uL [facility] Segmented neutrophils/100 WBC (Bld) 39.5 % [facility] WBC (Bld) [#/Vol] 9.12 10*3/uL 3.73 - 10. 10 K/uL [facility] CHEM 7 (LYTES,BUN,CREA,GLUC) on 11-09-2022 Anion gap [Moles/Vol] 13 mmol/L Normal 7-17 [facility] Comment on above: Performed By: #### P TT #### [facility] (DEFAULT) [address] [place] [address] Chloride [Moles/Vol] 106 mmol/L Normal 98-108 [facility] Comment on above: Performed By: #### P TT #### [facility] (DEFAULT) [address] [place] [address]290 CO2 [Moles/Vol] 23 mmol/L Normal 21-31 [facility] Comment on above: Performed By: #### P TT #### [facility] (DEFAULT) [address] [place] [address]73 Creatinine [Mass/Vol] 1.05 mg/dL Normal 0.70-1.30 [facility] Comment on above: Performed By: #### P TT #### [facility] (DEFAULT) [address] [address] GFR/1.73 sq M.predicted among non-blacks MDRD (S/P/Bld) [Vol rate/Area] 86 mL/min/{1.73_m2} Normal >=60 [facility] Comment on above: Result Comment: Repo rted eGFR is based on the CKD-EPI 1 equation using creatinine, age, and sex. Performed By: #### P TT #### [facility] (DEFAULT) [address] [address] Glucose [Mass/Vol] 100 mg/dL High 70-99 [facility] Comment on above: Performed By: #### P TT #### [facility] (DEFAULT) [address] [place] [address] Osmolality [Osmolality] 292 mosm/kg Normal 278-305 [facility] Comment on above: Performed By: #### P TT #### [facility] (DEFAULT) [address] [place] [address]2080 Potassium [Moles/Vol] 4.1 mmol/L Normal 3.5-5.0 [facility] Comment on above: Performed By: #### P TT #### [facility] (DEFAULT) [address] [place] [address] 16018 Sodium [Moles/Vol] 138 mmol/L Normal 135-145 [facility] Comment on above: Performed By: #### P TT #### [facility] (DEFAULT) [address] [place] [address] 92611 Urea nitrogen [Mass/Vol] 20 mg/dL Normal 7-25 [facility] Comment on above: Performed By: #### P TT #### [facility] (DEFAULT) [address] [place] [address]12 Urea nitrogen/Creatinine [Mass ratio] 19 mg/mg Normal [facility] Comment on above: Performed By: #### P TT #### [facility] (DEFAULT) [address] [place] [address]15 Anion gap [Moles/Vol] 13 mmol/L 7 - 17 mmol/L [facility] Chloride [Moles/Vol] 106 mmol/L 98 - 10 8 mmol/L [facility] CO2 [Moles/Vol] 23 mmol/L 21 - 31 mmol/L [facility] Creatinine [Mass/Vol] 1.05 mg/dL 0.70 - 1.30 mg/dL [facility] GFR/1.73 sq M.predicted CKD-EPI (S/P/Bld) [Vol rate/Area] 86 - PINF [facility] Glucose [Mass/Vol] 100 mg/dL High 70 - 99 mg/dL [facility] Osmolality Calc [Osmolality] 292 [facility] Potassium [Moles/Vol] 4.1 mmol/L 3.5 - 5.0 mmol/L [facility] Sodium [Moles/Vol] 138 mmol/L 135 - 145 mmol/L [facility] Urea nitrogen [Mass/Vol] 20 mg/dL 7 - 25 mg/dL [facility] Urea nitrogen/Creatinine [Mass ratio] 19 mg/mg [facility] CONTINUOUS CARDIAC MONITORIN G STRIPOrdered By: Unassigned Pacs on 11-09-2022 [facility] Work Phone: CT Chest WO contraston 11-09 Radiology Study observation (narrative) [facility] GLUCOSE POCon 11-09-2022 Glucose [Mass/Vol] 97 mg/dL 70 - 99 mg/dL [facility] Glucose [Mass/Vol] 124 mg/dL High 70 - 99 mg/dL [facility] Interpretation and review of laboratory results Abnormal [facility] POC Sample Type CAPBL [facility] Glucose [Mass/Vol] 115 mg/dL High 70 - 99 mg/dL [facility] Interpretation and review of laboratory results Abnormal [facility] POC Sample Type CAPBL [facility] HEMOGLOBIN [id number] By: Dipesh Estevez on 11-09-2022 Average glucose Estimated from glycated hemoglobin (Bld) [Mass/Vol] 126 mg/dL [facility] HbA1c (Bld) [Mass fraction] 6.0 % High 4.7 - 5.6 % [facility] Interpretation and review of laboratory results Abnormal [facility] HEMOGLOBIN A1Con 11-09-2022 Glucose [Mass/Vol] 126 mg/dL Normal [facility] Comment on above: Performed By: #### G AS5L #### [facility] (DEFAULT) [address] [address] Hemoglobin A1C HPLC 6.0 % High 4.7-5.6 [facility] Comment on above: Performed By: #### G AS5L #### [facility] (DEFAULT) [address] [address] HEPATIC FUNCTION PANELon Albumin [Mass/Vol] 3.9 g/dL Normal 3.5-5.0 [facility] Comment on above: Performed By: #### X M #### [facility] (DEFAULT) [address] [address] ALP [Catalytic activity/Vol] 53 U/L Normal 32-126 [facility] Comment on above: Performed By: #### X M #### [facility] (DEFAULT) [address] [address] ALT [Catalytic activity/Vol] 13 U/L Normal 10-52 [facility] Comment on above: Performed By: #### X M #### [facility] (DEFAULT) [address] [address] AST [Catalytic activity/Vol] 22 U/L Normal 10-39 [facility] Comment on above: Performed By: #### X M #### [facility] (DEFAULT) [address] [address] Bilirubin [Mass/Vol] 0.4 mg/dL Normal <1.5 [facility] Comment on above: Performed By: #### X M #### [facility] (DEFAULT) [address] [address] Bilirubin Direct < Normal <0.3 [facility] Comment on above: Performed By: #### X M #### [facility] (DEFAULT) [address] [place] [address] Protein [Mass/Vol] 6.5 g/dL Normal 6.4-8.3 [facility] Comment on above: Performed By: #### X M #### [facility] (DEFAULT) [address] [place] [address] Albumin [Mass/Vol] 3.9 g/dL 3.5 - 5.0 g/dL [facility] ALP [Catalytic activity/Vol] 53 U/L 32 - 126 U/L [facility] ALT [Catalytic activity/Vol] 13 U/L 10 - 52 U/L [facility] AST [Catalytic activity/Vol] 22 U/L 10 - 39 U/L [facility] Bilirubin [Mass/Vol] 0.4 mg/dL NINF - 1.5 mg/dL [facility] Bilirubin.direct [Mass/Vol] mg/dL NINF - 0.3 mg/dL [facility] Protein [Mass/Vol] 6.5 g/dL 6.4 - 8.3 g/dL [facility] IONIZED CALCIUM, WHOLE BLOOD on 11-09-2022 ICA 4.66 mg/dL Normal 4.60-5.30 [facility] Comment on above: Performed By: #### I CA #### [facility] (DEFAULT) [address] [place] [address] IONIZED CALCIUM, WHOLE BLOOD Ordered By: Mesfin Fernandes on 11-09-2022 Calcium.ionized (Bld) [Moles/Vol] 4.66 mg/dL 4.60 - 5.30 mg/dL [facility] Interpretation and review of laboratory results Normal [facility] LIPID PANEL W CALCULATED LDL on 11-09-2022 Calculated LDL Cholesterol 64 mg/dL Normal 0-99 [facility] Comment on above: Result Comment: [<10 0 mg/dL: Optimal] [100-129 mg/dL: Near Optimal] [130-159 mg/dL: Borderline High] [160-189 mg/dL: High] [>189 mg/dL: Very High] Performed By: #### P TT #### [facility] (DEFAULT) [address] [place] [address] Cholesterol [Mass/Vol] 157 mg/dL Normal <200 [facility] Comment on above: Result Comment: [<20 0 mg/dL: Desirable] [200-239 mg/dL: Borderline High] [>239 mg/dL: High] Performed By: #### P TT #### [facility] (DEFAULT) [address] [place] [address] Cholesterol in HDL [Mass/Vol] 53 mg/dL Normal >=40 [facility] Comment on above: Result Comment: [<40 mg/dL: Low (High Risk)] [>59 mg/dL: High (Low Risk)] Performed By: #### P TT #### [facility] (DEFAULT) [address] [place] [address] Non HDL Cholesterol 104 mg/dL Normal <130 [facility] Comment on above: Performed By: #### P TT #### [facility] (DEFAULT) [address] [place] [address] Total Cholesterol/HDL Ratio 3.0 Normal <4.5 [facility] Comment on above: Performed By: #### P TT #### [facility] (DEFAULT) [address] [place] [address] Triglyceride [Mass/Vol] 198 mg/dL High <150 [facility] Comment on above: Result Comment: [<15 0 mg/dL: Desirable] [150-199 mg/dL: Borderline] [200-499 mg/dL: High] [>500 mg/dL: Very High] Performed By: #### P TT #### [facility] (DEFAULT) [address] [place] [address] Cholesterol [Mass/Vol] 157 mg/dL NINF - 200 mg/dL [facility] Cholesterol in HDL [Mass/Vol] 53 mg/dL 40 - PINF mg/dL [facility] Cholesterol in HDL [Mass/Vol] 104 mg/dL NINF - 130 mg/dL [facility] Cholesterol in LDL [Mass/Vol] 64 mg/dL 0 - 99 mg/dL [facility] Cholesterol.total/Chol esterol in HDL [Mass ratio] 3.0 {ratio} NINF - 4.5 [facility] Triglyceride [Mass/Vol] 198 mg/dL High NINF - 150 mg/dL [facility] MAGNESIUMon 11-09-2022 Magnesium [Mass/Vol] 2.1 mg/dL Normal 1.6-2.6 [facility] Comment on above: Performed By: #### P TT #### [facility] (DEFAULT) [address] [place] [address] Magnesium [Mass/Vol] 2.1 mg/dL 1.6 - 2 .6 mg/dL [facility] No Panel Informationon 11-09 Interpretation and review of laboratory results Normal [facility] Interpretation and review of laboratory results Abnormal [facility] PHOSPHATE, INORGANICon 11-09 Phosphorous 4.5 mg/dL Normal 2.2-4.6 [facility] Comment on above: Performed By: #### X M #### [facility] (DEFAULT) [address] [place] [address] Phosphate [Mass/Vol] 4.5 mg/dL 2.2 - 4 .6 mg/dL [facility] PREALBUMINon 11-09-2022 Prealbumin [Mass/Vol] 28 mg/dL Normal 17-34 [facility] Comment on above: Performed By: #### U LYTR, UCRER #### [facility] (DEFAULT) [address] [place] [address] Interpretation and review of laboratory results Normal [facility] Prealbumin [Mass/Vol] 28 mg/dL 17 - 34 mg/dL [facility] PT,INR,PTTon 11-09-2022 aPTT Coag (Bld) [Time] 27.7 s Normal 24.0-34.3 [facility] Comment on above: Performed By: #### U LYTR, UCRER #### [facility] (DEFAULT) [address] [place] [address] INR Coag (PPP) [Relative time] 1.0 {INR} Normal 0.9-1.1 [facility] Comment on above: Performed By: #### U LYTR, UCRER #### [facility] (DEFAULT) [address] [place] [address] PT Coag (PPP) [Time] 12.8 s Normal 11.9-14.2 [facility] Comment on above: Performed By: #### U LYTR, UCRER #### [facility] (DEFAULT) [address] [place] [address] aPTT Coag (PPP) [Time] 27.7 s [facility] INR Coag (Bld) [Relative time] 1.0 {INR} 0.9 - 1.1 [facility] Interpretation and review of laboratory results Normal [facility] PT Coag (PPP) [Time] 12.8 s [facility] PTTon 11-09-2022 aPTT Coag (Bld) [Time] 39.0 s High 24.0-34.3 [facility] Comment on above: Order Comment: After initiation a PTT should be checked every 6 hours from time of last dose change or, if dose has not changed, 6 hours after last PTT result posted.? The frequent monitoring should occur until PTT in goal range for two consecutive lab draws without dose changes at which time PTTs may be checked no less frequently than every 12 hours.? If dose requires a change, PTT should be monitored at least every 6 hours until titration is no longer indicated, then as directed above.? If PTT above goal range refer to medication administration instructions. Performed By: #### X M #### [facility] (DEFAULT) [address] [place] [address] aPTT Coag (PPP) [Time] 39.0 s High [facility] Interpretation and review of laboratory results Abnormal [facility] aPTT Coag (Bld) [Time] 31.9 s Normal 24.0-34.3 [facility] Comment on above: Order Comment: Lucho sanchez current type and screen. Performed By: #### X M #### [facility] (DEFAULT) [address] [place] [address] aPTT Coag (PPP) [Time] 31.9 s [facility] Interpretation and review of laboratory results Normal [facility] Portable XR Chest Viewson RADIOLOGY RADIOLOGY [facility] Radiology Study observation (narrative) [facility] Portable XR Chest ViewsOrder ed By: Lamonte Marcus on 11-09-2022 [facility] Work Phone: SCREEN: MRSA/MSSAOrdered By: Sharona Kolb on 11-09-2022 Interpretation and review of laboratory results Normal [facility] Methicillin Resistant S. Aureus By Pcr Negative Negative [facility] Staphylococcus Aureus By Pcr Negative Negative [facility] SCREEN: MRSA/MSSAon 11-09-19 23 Methicillin Resistant S. Aureus By Pcr Negative Normal Negative [facility] Comment on above: Order Comment: Colle ct with an ESWAB - Anterior Nares for MRSA + MSSA This test was performed using a real time PCR assay. Results should be interpreted in conjunction with other clinical and laboratory findings. A positive result does not necessarily indicate the presence of viable organism. This test should not be used as a test of cure. For E-swab specimens, this test was developed and its performance characteristics determined by the [facility] Laboratory at [facility]. It has not been cleared or approved by the FDA.The laboratory is regulated under CLIA as qualified to perform high-complexity testing. This test is used for clinical purposes. It should not be regarded as investigational or for research. Performed By: #### S CRSB #### [facility] (DEFAULT) [address] [address] Staphylococcus Aureus By Pcr Negative Normal Negative [facility] Comment on above: Order Comment: Colle ct with an ESWAB - Anterior Nares for MRSA + MSSA This test was performed using a real time PCR assay. Results should be interpreted in conjunction with other clinical and laboratory findings. A positive result does not necessarily indicate the presence of viable organism. This test should not be used as a test of cure. For E-swab specimens, this test was developed and its performance characteristics determined by the [facility] at [facility]. It has not been cleared or approved by the FDA.The laboratory is regulated under CLIA as qualified to perform high-complexity testing. This test is used for clinical purposes. It should not be regarded as investigational or for research. Performed By: #### S CRSB #### [facility] (DEFAULT) [address] [address] T3 TOTAL (TRIIODOTHYRONINE)o n 11-09-2022 Interpretation and review of laboratory results Normal [facility] T3 [Mass/Vol] 0.81 ng/mL 0.60 - 1.81 ng/mL [facility] T3 Total (Triiodothyronine) 0.81 ng/mL Normal 0.60-1.81 [facility] Comment on above: Performed By: #### INGRID MILLERRER #### [facility] (DEFAULT) [address] [address] T4 FREEon 11-09-2022 Free T4 [Mass/Vol] 1.05 ng/dL Normal 0.89-1.76 [facility] Comment on above: Performed By: #### Job GATES UCRER #### [facility] (DEFAULT) [address] [address] Free T4 [Mass/Vol] 1.05 ng/dL 0.89 - 1. 76 ng/dL [facility] Interpretation and review of laboratory results Normal [facility] TROPONIN 1 HOURon 11-09-2022 1 Hour hs-Troponin 220 ng/L High <53 [facility] Comment on above: Order Comment: The r eference range has not been established for random urine specimens. The test result should be integrated into the clinical context for interpretation. Result Comment: Layg estive of myocardial injury Performed By: #### U LYTR, UCRER #### [facility] (DEFAULT) [address] [place] [address] Delta hs-Troponin I < Normal <=15 [facility] Comment on above: Order Comment: The r eference range has not been established for random urine specimens. The test result should be integrated into the clinical context for interpretation. Performed By: #### U LYTR, UCRER #### [facility] (DEFAULT) [address] [place] [address] Delta hs-Troponin I ng/L NINF - 1 5 ng/L [facility] Interpretation and review of laboratory results Abnormal [facility] Troponin I.cardiac High sensitivity method [Mass/Vol] 220 ng/L High NINF - 53 ng/L [facility] TROPONIN I INITIALon 023 hs-Troponin I 237 ng/L High <53 [facility] Comment on above: Order Comment: Colle ct with an ESWAB - Anterior Nares for MRSA + MSSA This test was performed using a real time PCR assay. Results should be interpreted in conjunction with other clinical and laboratory findings. A positive result does not necessarily indicate the presence of viable organism. This test should not be used as a test of cure. For E-swab specimens, this test was developed and its performance characteristics determined by the [facility] at [facility]. It has not been cleared or approved by the FDA.The laboratory is regulated under CLIA as qualified to perform high-complexity testing. This test is used for clinical purposes. It should not be regarded as investigational or for research. Result Comment: Sugg estive of myocardial injury Performed By: #### S CRSB #### [facility] (DEFAULT) [address] [address] TROPONIN I INITIALOrdered By : Geronimo Davies on 11-09-2022 Interpretation and review of laboratory results Abnormal [facility] Troponin I.cardiac High sensitivity method [Mass/Vol] 237 ng/L High NINF - 53 ng/L [facility] TSH W/FT4 REFLEXon 3 TSH 6.028 uIU/mL High 0.550-4.780 [facility] Comment on above: Performed By: #### T SHQR ####[facility] (DEFAULT)[address] [place] [address] Interpretation and review of laboratory results Abnormal [facility] TSH Qn 6.028 m[IU]/L High [facility] TYPE AND SCREENon 11-09-2022 ABO/RH(D) TYPE Positive Normal [facility] Comment on above: Performed By: #### X M #### [facility] (DEFAULT) [address] [place] [address] ABO/RH(D) TYPE Positive [facility] URINALYSIS REFLEX TO CULTURE PERFORMABLEon 11-09-2022 Appearance (U) Clear Normal Clear [facility] Comment on above: Order Comment: For i ndwelling catheters, specimen collection is acceptable on catheter day 1 and 2 only. ? Performed By: #### X M #### [facility] (DEFAULT) [address] [place] [address] Bacteria ABSENT Normal ABSENT [facility] Comment on above: Order Comment: For i ndwelling catheters, specimen collection is acceptable on catheter day 1 and 2 only. ? Performed By: #### X M #### [facility] (DEFAULT) [address] [place] [address] Blood Urine Negative Normal Negative [facility] Comment on above: Order Comment: For i ndwelling catheters, specimen collection is acceptable on catheter day 1 and 2 only. ? Performed By: #### X M #### [facility] (DEFAULT) [address] [place] [address] Color (U) Yellow Normal Yellow [facility] Comment on above: Order Comment: For i ndwelling catheters, specimen collection is acceptable on catheter day 1 and 2 only. ? Performed By: #### X M #### U [facility] (DEFAULT) [address] [place] [address] Glucose Ql (U) Negative Normal Negative [facility] Comment on above: Order Comment: For i ndwelling catheters, specimen collection is acceptable on catheter day 1 and 2 only. ? Performed By: #### X M #### [facility] (DEFAULT) [address] [place] [address] Ketones Ql (U) Negative Normal Negative [facility] Comment on above: Order Comment: For i ndwelling catheters, specimen collection is acceptable on catheter day 1 and 2 only. ? Performed By: #### X M #### [facility] (DEFAULT) [address] [place] [address] Leukocyte esterase Test strip Ql (U) Negative Normal Negative [facility] Comment on above: Order Comment: For i ndwelling catheters, specimen collection is acceptable on catheter day 1 and 2 only. ? Performed By: #### X M #### [facility] (DEFAULT) [address] [place] [address] Nitrites Urine Negative Normal Negative [facility] Comment on above: Order Comment: For i ndwelling catheters, specimen collection is acceptable on catheter day 1 and 2 only. ? Performed By: #### X M #### [facility] (DEFAULT) [address] [place] [address] pH (U) 6.5 [pH] Normal 5.0-7.0 [facility] Comment on above: Order Comment: For i ndwelling catheters, specimen collection is acceptable on catheter day 1 and 2 only. ? Performed By: #### X M #### [facility] (DEFAULT) [address] [place] [address] Protein Urine Negative Normal Negative [facility] Comment on above: Order Comment: For i ndwelling catheters, specimen collection is acceptable on catheter day 1 and 2 only. ? Performed By: #### X M #### [facility] (DEFAULT) [address] [place] [address] RBC Urine 0-2 Normal 0-2 [facility] Comment on above: Order Comment: For i ndwelling catheters, specimen collection is acceptable on catheter day 1 and 2 only. ? Performed By: #### X M #### [facility] (DEFAULT) [address] [place] [address] Specific Cinebar Urine 1.019 Normal 1.001-1.035 [facility] Comment on above: Order Comment: For i ndwelling catheters, specimen collection is acceptable on catheter day 1 and 2 only. ? Performed By: #### X M #### [facility] (DEFAULT) [address] [place] [address] Squamous/Epithelial Cells ABSENT Normal 1/hpf = 1+, 2-5/hpf = 2+, 0/hpf = 0+, ABSENT [facility] Comment on above: Order Comment: For i ndwelling catheters, specimen collection is acceptable on catheter day 1 and 2 only. ? Performed By: #### X M #### U [facility] (DEFAULT) [address] [place] [address] Urobilinogen Urine 0.2 E.U./dL Normal 0.2 E.U/d L, 1.0 E.U/dL [facility] Comment on above: Order Comment: For i ndwelling catheters, specimen collection is acceptable on catheter day 1 and 2 only. ? Performed By: #### X M #### [facility] (DEFAULT) [address] [place] [address]82 WBC Urine 0-5 Normal 0-5 [facility] Comment on above: Order Comment: For i ndwelling catheters, specimen collection is acceptable on catheter day 1 and 2 only. ? Performed By: #### X M #### [facility] (DEFAULT) [address] [place] [address] Appearance (U) Clear Clear [facility] Bacteria LM Ql (Urine sed) ABSENT ABSENT [facility] Color (U) Yellow Yellow [facility] Epithelial cells.squamous LM Ql (Urine sed) ABSENT 1/hpf = 1+, 2-5/hpf = 2+, 0/hpf = 0+, ABSENT [facility] Glucose Test strip (U) [Mass/Vol] Negative [facility] Interpretation and review of laboratory results Normal [facility] Ketones (U) [Mass/Vol] Negative Negative [facility] Leukocyte esterase Test strip Ql (U) Negative Negative [facility] Nitrite Ql (U) Negative Negative [facility] pH (U) 6.5 [pH] 5.0 - 7.0 [facility] Protein (U) [Mass/Vol] Negative Negative [facility] RBC (U) [#/Vol] Negative Negative [facility] RBC LM.HPF (Urine sed) [#/Area] 0-2 [facility] Specific gravity (U) [Rel density] 1.019 1.001 - 1.035 [facility] Urobilinogen (U) [Mass/Vol] 0.2 E.U./dL 0.2 E.U/dL, 1.0 E.U/dL [facility] WBC LM.HPF (Urine sed) [#/Area] 0-5 [facility] XR CHEST PORTABLEon 11-09-19 XR CHEST PORTABLE EXAM: XR CHEST PORTABLE, 11/09/2022 01:01 AM COMPARISON: No prior studies available for comparison. CLINICAL INDICATIONS: pre-op evaluation cardiac surgery RELEVANT CLINICAL HISTORY: FINDINGS: (Adequate technique) Implanted Devices: None Thorax: There is a deformity of the right fifth rib predominantly posteriorly, probably posttraumatic. Lungs are clear. No pleural fluid. Heart size normal. IMPRESSION: Deformity of the right fifth rib, presumably posttraumatic. No other abnormality. Normal [facility] Absolute lymphocyte countOrd ered By: Dr. Win on 11-08-2022 Lymphocytes Auto (Unsp spec) [#/Vol] 4.39 10*3/uL 0.83-4.51 [facility] Basophil percentageOrdered B y: Dr. Win on 11-08-2022 Basophils/100 WBC (Bld) 0.8 % 0-1 [facility] Chloride [Moles/Vol] 106 mmol/L 98-107 [facility] Eosinophils/100 WBC (Bld) 2.4 % 0-5 [facility] Glucose [Mass/Vol] 134 mg/dL 74-106 [facility] Comment on above: Fasting Glucose resu lt greater than or equal to 126 mg/dL suggests DIABETES MELLITUS per A.D.A. criteria. Neutrophils (Bld) [#/Vol] 4.6 10*3/uL 2.0-7.7 [facility] Neutrophils/100 WBC (Bld) 43.8 % 47-70 [facility] Potassium [Moles/Vol] 4.1 mmol/L 3.5-5.1 [facility] Sodium [Moles/Vol] 138 mmol/L 136-145 [facility] WBC (Bld) [#/Vol] 10.5 10*3/uL 4.4-11.0 [facility] Blood erythrocytes count (nu mber/volume)Ordered By: Dr. Win on 11-08-2022 RBC (Bld) [#/Vol] 4.99 10*6/uL 4.6-6.2 [facility] Blood hemoglobin measurement (mass/volume)Ordered By: Dr. Win on 11-08-2022 Hemoglobin (Bld) [Mass/Vol] 14.7 g/dL 13.0-16.5 [facility] Blood lymphocytes/100 leukoc ytesOrdered By: Dr. Win on 11-08-2022 Lymphocytes/100 WBC (Bld) 41.7 % 19-41 [facility] Blood monocytes/100 leukocyt esOrdered By: Dr. Win on 11-08-2022 Monocytes/100 WBC (Bld) 11.0 % 0-10 [facility] Blood platelet mean volumeOr dered By: Dr. Win on 11-08-2022 Platelet mean volume (Bld) [Entitic vol] 10.4 fL 6.2-12.0 [facility] Determination of erythrocyte mean corpuscular volume (MCV)Ordered By: Dr. Win on 11-08-2022 MCV (RBC) [Entitic vol] 87.2 fL 80-94 [facility] Hematocrit Auto (Bld) [Volum e fraction]Ordered By: Dr. Win on 11-08-2022 Hematocrit (Bld) [Volume fraction] 43.5 % 40-54 [facility] INR in Blood by Coagulation assayOrdered By: Dr. Infante on 11-08-2022 INR Coag (Bld) [Relative time] 1.1 {INR} [facility] Laboratory - Chemistry and C hemistry - challengeOrdered By: Dr. Win on 11-08-2022 CO2 [Moles/Vol] 24.0 mmol/L 21.0-32.0 [facility] Urea nitrogen/Creatinine [Mass ratio] 12.2 mg/mg 10-20 [facility] Laboratory - CoagulationOrde red By: Dr. Infante on 11-08-2022 aPTT Coag (Bld) [Time] 29.0 s 24.1-36.[address] [facility] PT Coag (PPP) [Time] 13.6 s 11.7-14.9 [facility] Laboratory - Hematology and Cell countsOrdered By: Dr. Win on 11-08-2022 Erythrocyte distribution width (RBC) [Entitic vol] 45.6 fL 35.1-43.9 [facility] Erythrocyte distribution width (RBC) [Ratio] 14.3 % 11.6-14.6 [facility] Immature granulocytes/100 WBC (Bld) 0.300 % 0.0-0.9 [facility] Comment on above: IG% - Immature Granu locytes (promyelocytes, myelocytes and metamyelocytes) > 1% indicates that a LEFT SHIFT is Present. MCH (RBC) [Entitic mass] 29.5 pg 27.0-32.0 [facility] Nucleated RBC/100 WBC (Bld) [Ratio] 0 % 0-5 [facility] Auto (RBC) [Mass/Vol]Or dered By: Dr. Win on 11-08-2022 MCHC (RBC) [Mass/Vol] 33.8 g/dL 32-36 [facility] No Panel InformationOrdered By: Dr. Win on 11-08-2022 Troponin I High Sensitivity 104 pg/mL 3.0-78.0 [facility] Comment on above: Please Note: New Lynda t Units and Gender Specific Reference Ranges. For more information see Policy Stat Procedure [place] High Sensitivity Troponin (TNIH) and attachments. Estimated Creatinine Clearance Calc 78.86 ml/min [facility] Estimated GFR (MDRD) Amer 80 mL/min >60 [facility] Comment on above: GFR Calc Estimated GFR (MDRD) Non-Af Amer 66 mL/min >60 [facility] Comment on above: Non- GFR Calc Troponin I High Sensitivity 37 pg/mL 3.0-78.0 [facility] Comment on above: Please Note: New Lynda t Units and Gender Specific Reference Ranges. For more information see Policy Stat Procedure [place] High Sensitivity Troponin (TNIH) and attachments. No Panel InformationOrdered By: Dr. Estevez on 11-08-2022 D-Dimer Quantitative (PE/DVT) < 0.27 FEU/ug/m 0.27-0.49 [facility] Comment on above: NORMAL D-Dimer level (<0.50) indicates no DVT or PE. Platelets bldOrdered By: Dr. Win on 11-08-2022 Platelets (Bld) [#/Vol] 242 10*3/uL 150-450 [facility] Serum or plasma calcium jose urement (mass/volume)Ordered By: Dr. Win on 11-08-2022 Calcium [Mass/Vol] 9.5 mg/dL 8.5-10.1 [facility] Serum or plasma creatinine m easurement (mass/volume)Ordered By: Dr. Win on 11-08-2022 Creatinine [Mass/Vol] 1.23 mg/dL 0.70-1.30 [facility] Comment on above: The validity of the calculated GFR & GFRAA in patients over 70 years has not been determined. Clinical correlation is essential. Serum or plasma urea nitroge n measurement (mass/volume)Ordered By: Dr. Win on 11-08-2022 Urea nitrogen [Mass/Vol] 15 mg/dL 7-18 [facility] Thin prep Papanicolaou smear with manual screeningOrdered By: Dr. Win on 11-08-2022 Thin prep Papanicolaou smear with manual screening 8 5-15 [facility] Whole blood hemoglobin A1c/t otal hemoglobin ratio (mass fraction)Ordered By: Dr. Estevez on 11-08-2022 HbA1c (Bld) [Mass fraction] 5.9 % 3.8-5.6 [facility] Comment on above: Normal < 5.7 % Predi abetic 5.7 - 6.4 % Diabetic >or= 6.5 % Please note range changes. Vital Signs Date Time Vital Sign Value Performing Clinician Facility 05-14-2025 10:14-0400 Body height 182.88 cm Svitlana Becerril MD Work Phone: [facility] 05-14-2025 10:14-0400 Body mass index (BMI) [Ratio] 31.1 kg/m2 Svitlana Becerril MD Work Phone: [facility] 05-14-2025 10:14-0400 Body weight 104.32 kg Svitlana Becerril MD Work Phone: [facility] 05-14-2025 10:14-0400 Diastolic blood pressure 87 mm[Hg] Svitlana Becerril MD Work Phone: [facility] 05-14-2025 10:14-0400 Heart rate 82 /min Svitlana Becerril MD Work Phone: [facility] 05-14-2025 10:14-0400 Respiratory rate 16 /min Svitlana Becerril MD Work Phone: [facility] 05-14-2025 10:14-0400 Systolic blood pressure 123 mm[Hg] Svitlana Becerril MD Work Phone: [facility] 02-06-2025 08:04-0400 Body height 182.88 cm Svitlana Becerril MD Work Phone: [facility] 02-06-2025 08:04-0400 Body mass index (BMI) [Ratio] 32 kg/m2 Svitlana Becerril MD Work Phone: [facility] 02-06-2025 08:04-0400 Body weight 107.1 kg Svitalna Becerril MD Work Phone: [facility] 10-31-2024 09:20-0500 Body height 182.[address] Denys Cuello MD Work Phone: [facility] 10-31-2024 09:20-0500 Body mass index (BMI) [Ratio] 31.6 kg/m2 Dr. Denys Cuello MD Work Phone: [facility] 10-31-2024 09:20-0500 Body weight 105.[address] Denys Cuello MD Work Phone: [facility] 09-29-2024 16:56-0500 Body mass index (BMI) [Ratio] 31.4 kg/m2 Dr. Denys Cuello MD Work Phone: [facility] 09-29-2024 16:56-0500 Body temperature 98.4 [degF] Dr. Denys Cuello MD Work Phone: [facility] 09-29-2024 16:56-0500 Body weight 105.[address] Denys Cuello MD Work Phone: [facility] 09-29-2024 16:56-0500 Diastolic blood pressure 102 mm[Hg] Dr. Denys Cuello MD Work Phone: [facility] 09-29-2024 16:56-0500 Heart rate 99 /min Dr. Denys Cuello MD Work Phone: [facility] 09-29-2024 16:56-0500 Respiratory rate 18 /min Dr. Denys Cuello MD Work Phone: [facility] 09-29-2024 16:56-0500 SaO2% (BldA) [Mass fraction] 99 % Dr. Denys Cuello MD Work Phone: [facility] 09-29-2024 16:56-0500 Systolic blood pressure 144 mm[Hg] Dr. Denys Cuello MD Work Phone: [facility] 09-29-2024 16:24-0500 Body temperature 97.9 [degF] Penny Soto APPLICATION SUPPORT CONSULTANT.REVERSE ENGINEER Work Phone: [facility] 09-29-2024 16:24-0500 Body weight 105.5 kg Penny Soto APPLICATION SUPPORT CONSULTANT.REVERSE ENGINEER Work Phone: [facility] 09-29-2024 16:24-0500 Diastolic blood pressure 82 mm[Hg] Penny Soto APPLICATION SUPPORT CONSULTANT.REVERSE ENGINEER Work Phone: [facility] 09-29-2024 16:24-0500 Heart rate 97 /min Penny Soto APPLICATION SUPPORT CONSULTANT.REVERSE ENGINEER Work Phone: [facility] 09-29-2024 16:24-0500 Respiratory rate 16 /min Penny Soto APPLICATION SUPPORT CONSULTANT.REVERSE ENGINEER Work Phone: [facility] 09-29-2024 16:24-0500 SaO2% (BldA) [Mass fraction] 98 % Penny Soto APPLICATION SUPPORT CONSULTANT.REVERSE ENGINEER Work Phone: [facility] 09-29-2024 16:24-0500 Systolic blood pressure 124 mm[Hg] Penny Soto APPLICATION SUPPORT CONSULTANT.REVERSE ENGINEER Work Phone: [facility] 07-15-2024 13:25-0400 Body temperature 98.01 [degF] Penny Soto APPLICATION SUPPORT CONSULTANT.REVERSE ENGINEER Work Phone: [facility] 07-15-2024 13:25-0400 Body weight 101.9 kg Penny Soto APPLICATION SUPPORT CONSULTANT.REVERSE ENGINEER Work Phone: [facility] 07-15-2024 13:25-0400 Diastolic blood pressure 78 mm[Hg] Penny Soto APPLICATION SUPPORT CONSULTANT.REVERSE ENGINEER Work Phone: [facility] 07-15-2024 13:25-0400 Heart rate 82 /min Penny Soto APPLICATION SUPPORT CONSULTANT.REVERSE ENGINEER Work Phone: [facility] 07-15-2024 13:25-0400 Respiratory rate 16 /min Penny Soto APPLICATION SUPPORT CONSULTANT.REVERSE ENGINEER Work Phone: [facility] 07-15-2024 13:25-0400 SaO2% (BldA) [Mass fraction] 98 % Penny Soto APPLICATION SUPPORT CONSULTANT.REVERSE ENGINEER Work Phone: [facility] 07-15-2024 13:25-0400 Systolic blood pressure 112 mm[Hg] Penny Soto APPLICATION SUPPORT CONSULTANT.REVERSE ENGINEER Work Phone: [facility] 01-03-2024 15:33-0400 Body height 182.[address] Denys Cuello Work Phone: [facility] 01-03-2024 15:33-0400 Body mass index (BMI) [Ratio] 29 kg/m2 Dr. Denys Cuello Work Phone: [facility] 01-03-2024 15:33-0400 Body weight 97.[address] Denys Cuello Work Phone: [facility] 01-03-2024 15:33-0400 Diastolic blood pressure 83 mm[Hg] Dr. Denys Cuello Work Phone: [facility] 01-03-2024 15:33-0400 Heart rate 83 /min Dr. Denys Cuello Work Phone: [facility] 01-03-2024 15:33-0400 Respiratory rate 18 /min Dr. Denys Cuello Work Phone: [facility] 01-03-2024 15:33-0400 SaO2% (BldA) [Mass fraction] 98 % Dr. Denys Cuello Work Phone: [facility] 01-03-2024 15:33-0400 Systolic blood pressure 130 mm[Hg] Dr. Denys Cuello Work Phone: [facility] 11-07-2023 16:10-0500 Body mass index (BMI) [Ratio] 27.8 kg/m2 Dr. Denys Cuello Work Phone: [facility] 11-07-2023 16:10-0500 Body temperature 97.6 [degF] Dr. Denys Cuello Work Phone: [facility] 11-07-2023 16:10-0500 Body weight 92.[address] Denys Cuello Work Phone: [facility] 11-07-2023 16:10-0500 Diastolic blood pressure 80 mm[Hg] Dr. Denys Cuello Work Phone: [facility] 11-07-2023 16:10-0500 Heart rate 94 /min Dr. Denys Cuello Work Phone: [facility] 11-07-2023 16:10-0500 Respiratory rate 14 /min Dr. Denys Cuello Work Phone: [facility] 11-07-2023 16:10-0500 SaO2% (BldA) [Mass fraction] 96 % Dr. Denys Cuello Work Phone: [facility] 11-07-2023 16:10-0500 Systolic blood pressure 120 mm[Hg] Dr. Denys Cuello Work Phone: [facility] 10-10-2023 15:53-0500 Body height 182.[address] Denys Cuello Work Phone: [facility] 10-10-2023 15:53-0500 Body mass index (BMI) [Ratio] 27.9 kg/m2 Dr. Denys Cuello Work Phone: [facility] 10-10-2023 15:53-0500 Body temperature 97.6 [degF] Dr. Denys Cuello Work Phone: [facility] 10-10-2023 15:53-0500 Body weight 93.[address] Denys Cuello Work Phone: [facility] 10-10-2023 15:53-0500 Diastolic blood pressure 80 mm[Hg] Dr. Denys Cuello Work Phone: [facility] 10-10-2023 15:53-0500 Heart rate 80 /min Dr. Denys Cuello Work Phone: [facility] 10-10-2023 15:53-0500 Respiratory rate 14 /min Dr. Denys Cuello Work Phone: [facility] 10-10-2023 15:53-0500 SaO2% (BldA) [Mass fraction] 96 % Dr. Denys Cuello Work Phone: [facility] 10-10-2023 15:53-0500 Systolic blood pressure 120 mm[Hg] Dr. Denys Cuello Work Phone: [facility] 09-19-2023 15:58-0500 Body mass index (BMI) [Ratio] 28.6 kg/m2 Dr. Denys Cuello Work Phone: [facility] 09-19-2023 15:58-0500 Body temperature 98.4 [degF] Dr. Denys Cuello Work Phone: [facility] 09-19-2023 15:58-0500 Body weight 95.[address] Denys Cuello Work Phone: [facility] 09-19-2023 15:58-0500 Diastolic blood pressure 80 mm[Hg] Dr. Denys Cuello Work Phone: [facility] 09-19-2023 15:58-0500 Heart rate 82 /min Dr. Denys Cuello Work Phone: [facility] 09-19-2023 15:58-0500 Respiratory rate 16 /min Dr. Denys Cuello Work Phone: [facility] 09-19-2023 15:58-0500 SaO2% (BldA) [Mass fraction] 97 % Dr. Denys Cuello Work Phone: [facility] 09-19-2023 15:58-0500 Systolic blood pressure 122 mm[Hg] Dr. Denys Cuello Work Phone: [facility] 08-30-2023 15:19-0500 Body height 182.[address] Denys Cuello Work Phone: [facility] 08-30-2023 15:16-0500 Body mass index (BMI) [Ratio] 27.8 kg/m2 Dr. Denys Cuello Work Phone: [facility] 08-30-2023 15:16-0500 Body weight 92.[address] Denys Cuello Work Phone: [facility] 08-30-2023 15:16-0500 Diastolic blood pressure 86 mm[Hg] Dr. Denys Cuello Work Phone: [facility] 08-30-2023 15:16-0500 Heart rate 75 /min Dr. Denys Cuello Work Phone: [facility] 08-30-2023 15:16-0500 Respiratory rate 18 /min Dr. Denys Cuello Work Phone: [facility] 08-30-2023 15:16-0500 SaO2% (BldA) [Mass fraction] 98 % Dr. Denys Cuello Work Phone: [facility] 08-30-2023 15:16-0500 Systolic blood pressure 132 mm[Hg] Dr. Denys Cuello Work Phone: [facility] 05-01-2023 12:48-0400 Body temperature 97.39 [degF] Patel Marcus APPLICATION SUPPORT CONSULTANT.REVERSE ENGINEER Work Phone: [facility] 05-01-2023 12:48-0400 Body weight 90.27 kg Patel Marcus APPLICATION SUPPORT CONSULTANT.REVERSE ENGINEER Work Phone: [facility] 05-01-2023 12:48-0400 Diastolic blood pressure 74 mm[Hg] Patel Marcus APPLICATION SUPPORT CONSULTANT.REVERSE ENGINEER Work Phone: [facility] 05-01-2023 12:48-0400 Heart rate 84 /min Patel Marcus APPLICATION SUPPORT CONSULTANT.REVERSE ENGINEER Work Phone: [facility] 05-01-2023 12:48-0400 Respiratory rate 16 /min Patel Marcus APPLICATION SUPPORT CONSULTANT.REVERSE ENGINEER Work Phone: [facility] 05-01-2023 12:48-0400 SaO2% (BldA) [Mass fraction] 98 % Patel Marcus APPLICATION SUPPORT CONSULTANT.REVERSE ENGINEER Work Phone: [facility] 05-01-2023 12:48-0400 Systolic blood pressure 122 mm[Hg] Patel Marcus APPLICATION SUPPORT CONSULTANT.REVERSE ENGINEER Work Phone: [facility] 03-30-2023 08:25-0400 Body temperature 96.9 [degF] Dr. Denys Cuello Work Phone: [facility] 03-30-2023 08:25-0400 Diastolic blood pressure 88 mm[Hg] Dr. Denys Cuello Work Phone: [facility] 03-30-2023 08:25-0400 Heart rate 76 /min Dr. Denys Cuello Work Phone: [facility] 03-30-2023 08:25-0400 Respiratory rate 16 /min Dr. Denys Cuello Work Phone: [facility] 03-30-2023 08:25-0400 SaO2% (BldA) [Mass fraction] 100 % Dr. Denys Cuello Work Phone: [facility] 03-30-2023 08:25-0400 Systolic blood pressure 119 mm[Hg] Dr. Denys Cuello Work Phone: [facility] 03-30-2023 07:27-0400 Body height 182.[address] Denys Cuello Work Phone: [facility] 03-30-2023 07:27-0400 Body mass index (BMI) [Ratio] 26.3 kg/m2 Dr. Denys Cuello Work Phone: [facility] 03-30-2023 07:27-0400 Body weight [address] Denys Cuello Work Phone: [facility] 03-02-2023 14:52-0400 Body mass index (BMI) [Ratio] 26.6 kg/m2 Dr. Denys Cuello Work Phone: [facility] 03-02-2023 14:52-0400 Body weight 88.[address] Denys Cuello Work Phone: [facility] 03-02-2023 14:52-0400 Diastolic blood pressure 77 mm[Hg] Dr. Denys Cuello Work Phone: [facility] 03-02-2023 14:52-0400 Heart rate 82 /min Dr. Denys Cuello Work Phone: [facility] 03-02-2023 14:52-0400 Respiratory rate 18 /min Dr. Denys Cuello Work Phone: [facility] 03-02-2023 14:52-0400 SaO2% (BldA) [Mass fraction] 98 % Dr. Denys Cuello Work Phone: [facility] 03-02-2023 14:52-0400 Systolic blood pressure 121 mm[Hg] Dr. Denys Cuello Work Phone: [facility] 02-23-2023 09:00-0400 Body temperature 97.1 [degF] Dr. Denys Cuello Work Phone: [facility] 02-23-2023 09:00-0400 Diastolic blood pressure 94 mm[Hg] Dr. Denys Cuello Work Phone: [facility] 02-23-2023 09:00-0400 Heart rate 77 /min Dr. Denys Cuello Work Phone: [facility] 02-23-2023 09:00-0400 Respiratory rate 12 /min Dr. Denys Cuello Work Phone: [facility] 02-23-2023 09:00-0400 SaO2% (BldA) [Mass fraction] 99 % Dr. Denys Cuello Work Phone: [facility] 02-23-2023 09:00-0400 Systolic blood pressure 122 mm[Hg] Dr. Denys Cuello Work Phone: [facility] 02-19-2023 08:19-0400 Body mass index (BMI) [Ratio] 26.7 kg/m2 Dr. Denys Cuello Work Phone: [facility] 02-19-2023 08:19-0400 Body temperature 97.4 [degF] Dr. Denys Cuello Work Phone: [facility] 02-19-2023 08:19-0400 Body weight 89.[address] Denys Cuello Work Phone: [facility] 02-19-2023 08:19-0400 Diastolic blood pressure 85 mm[Hg] Dr. Denys Cuello Work Phone: [facility] 02-19-2023 08:19-0400 Heart rate 75 /min Dr. eDnys Cuello Work Phone: [facility] 02-19-2023 08:19-0400 Respiratory rate 18 /min Dr. Denys Cuello Work Phone: [facility] 02-19-2023 08:19-0400 SaO2% (BldA) [Mass fraction] 96 % Dr. Denys Cuello Work Phone: [facility] 02-19-2023 08:19-0400 Systolic blood pressure 120 mm[Hg] Dr. Denys Cuello Work Phone: [facility] 02-05-2023 13:06-0400 Body height 182.[address] Denys Cuello Work Phone: [facility] 02-05-2023 13:06-0400 Body mass index (BMI) [Ratio] 26.4 kg/m2 Dr. Denys Cuello Work Phone: [facility] 02-05-2023 13:06-0400 Body temperature 95.5 [degF] Dr. Denys Cuello Work Phone: [facility] 02-05-2023 13:06-0400 Body weight 88.[address] Denys Cuello Work Phone: [facility] 02-05-2023 13:06-0400 Diastolic blood pressure 86 mm[Hg] Dr. Denys Cuello Work Phone: [facility] 02-05-2023 13:06-0400 Heart rate 106 /min Dr. Denys Cuello Work Phone: [facility] 02-05-2023 13:06-0400 Respiratory rate 18 /min Dr. Denys Cuello Work Phone: [facility] 02-05-2023 13:06-0400 SaO2% (BldA) [Mass fraction] 96 % Dr. Denys Cuello Work Phone: [facility] 02-05-2023 13:06-0400 Systolic blood pressure 138 mm[Hg] Dr. Denys Cuello Work Phone: [facility] 12-08-2022 10:28-0500 Body height 182.[address] Denys Cuello Work Phone: [facility] 12-08-2022 10:28-0500 Body mass index (BMI) [Ratio] 26 kg/m2 Dr. Denys Cuello Work Phone: [facility] 12-08-2022 10:28-0500 Body weight 87.[address] Denys Cuello Work Phone: [facility] 12-08-2022 10:28-0500 Diastolic blood pressure 84 mm[Hg] Dr. Denys Cuello Work Phone: [facility] 12-08-2022 10:28-0500 Heart rate 78 /min Dr. Denys Cuello Work Phone: [facility] 12-08-2022 10:28-0500 Respiratory rate 18 /min Dr. Denys Cuello Work Phone: [facility] 12-08-2022 10:28-0500 SaO2% (BldA) [Mass fraction] 98 % [facility] Cu[facility] [facility] 12-08-2022 10:28-0500 Systolic blood pressure 125 mm[Hg] Dr. Denys Cuello Work Phone: [facility] 12-06-2022 13:11-0500 Body mass index (BMI) [Ratio] 26.2 kg/m2 Dr. Denys Cuello Work Phone: [facility] 12-06-2022 13:11-0500 Body temperature 97.8 [degF] Dr. Denys Cuello Work Phone: [facility] 12-06-2022 13:11-0500 Body weight 87.[address] Denys Cuello Work Phone: [facility] 12-06-2022 13:11-0500 Diastolic blood pressure 80 mm[Hg] Dr. Denys Cuello Work Phone: [facility] 12-06-2022 13:11-0500 Heart rate 75 /min Dr. Denys Cuello Work Phone: [facility] 12-06-2022 13:11-0500 Respiratory rate 16 /min Dr. Denys Cuello Work Phone: [facility] 12-06-2022 13:11-0500 SaO2% (BldA) [Mass fraction] 99 % Dr. Denys Cuello Work Phone: [facility] 12-06-2022 13:11-0500 Systolic blood pressure 118 mm[Hg] Dr. Denys Cuello Work Phone: [facility] 11-18-2022 07:50-0500 Body temperature 97.3 [degF] Derek Jara MD, PhD Work Phone: [facility] 11-18-2022 07:50-0500 Diastolic blood pressure 81 mm[Hg] Derek Jara MD, PhD Work Phone: [facility] 11-18-2022 07:50-0500 Heart rate 79 /min Derek Jara MD, PhD Work Phone: [facility] 11-18-2022 07:50-0500 Respiratory rate 16 /min Derek Jara MD, PhD Work Phone: [facility] 11-18-2022 07:50-0500 SaO2% (BldA) [Mass fraction] 93 % Derek Jara MD, PhD Work Phone: [facility] 11-18-2022 07:50-0500 Systolic blood pressure 119 mm[Hg] Derek Jara MD, PhD Work Phone: [facility] 11-18-2022 02:50-0500 Body mass index (BMI) [Ratio] 25.98 kg/m2 Derek Jara MD, PhD Work Phone: [facility] 11-18-2022 02:50-0500 Body weight 86.91 kg Derek Jara MD, PhD Work Phone: [facility] 11-09-2022 00:06-0500 Body height 182.9 cm Derek Jara MD, PhD Work Phone: [facility] 11-08-2022 20:50-0500 Heart rate 75 /min Dr. Denys Cuello Work Phone: [facility] 11-08-2022 15:07-0500 Diastolic blood pressure 91 mm[Hg] Dr. Denys Cuello Work Phone: [facility] 11-08-2022 15:07-0500 Systolic blood pressure 134 mm[Hg] Dr. Densy Cuello Work Phone: [facility] 11-08-2022 14:30-0500 Respiratory rate 16 /min Dr. Denys Cuello Work Phone: [facility] 11-08-2022 14:30-0500 SaO2% (BldA) [Mass fraction] 96 % Dr. Denys Cuello Work Phone: [facility] 11-08-2022 13:51-0500 Body height 182.[address] Denys Cuello Work Phone: [facility] 11-08-2022 13:51-0500 Body weight 89.[address] Denys Cuello Work Phone: [facility] 11-08-2022 10:15-0500 Body temperature 96.2 [degF] [facility] 11-08-2022 10:15-0500 Diastolic blood pressure 95 mm[Hg] [facility] 11-08-2022 10:15-0500 Heart rate 74 /min [facility] 11-08-2022 10:15-0500 Respiratory rate 16 /min [facility] 11-08-2022 10:15-0500 SaO2% (BldA) [Mass fraction] 95 % [facility] 11-08-2022 10:15-0500 Systolic blood pressure 135 mm[Hg] [facility] 11-08-2022 10:12-0500 Body mass index (BMI) [Ratio] 26.8 kg/m2 Dr. Denys Cuello Work Phone: [facility] 11-08-2022 07:37-0500 Body height 182.88 cm [facility] 11-08-2022 07:37-0500 Body mass index (BMI) [Ratio] 28.5 kg/m2 [facility] 11-08-2022 07:37-0500 Body weight 95.3 kg [facility] Encounters Encounter Date Encounter Type Care Provider Facility Start: 05-22-2025 ambulatory [facility] Facility :[facility] Start: 05-19-2025 [facility] Facility :[facility] Start: 05-14-2025 Encounter for other preprocedural examination Andre Galeas NP [facility] Start: 05-14-2025 End: 05-14-2025 Patient encounter procedure Andre Galeas MOLDED GOODS OPERATOR-C -[facility] Work Phone: Start: 05-14-2025 End: 05-14-2025 Patient encounter status Andre Galeas MOLDED GOODS OPERATOR-C [facility] Comment on above: Right hip replacemen t scheduled for May 19 Start: 05-14-2025 End: 05-14-2025 ambulatory Svitlana Becerril MD Work Phone: -[facility] Start: 05-13-[address] Neville Mccall DO -Cat Scan [facility] Work Phone: Start: 05-13-2025 ambulatory [facility] Facility :[facility] Start: 2025 End: 2025 ambulatory Svitlana Becerril MD Work Phone: -[facility] Start: 2025 End: [address] Velasquez Diop MD -[facility] Start: 03-16-2025 End: 03-16-2025 ambulatory Svitlana Becerril MD Work Phone: [facility] Work Phone: Start: 03-16-2025 End: 03-16-[address] Svitlana Becerril MD -[facility] Work Phone: Start: 03-16-2025 End: 03-16-2025 ambulatory Svitlana Becerril Facility:[facility] Start: 02-06-2025 End: 02-06-[address] Neville Mccall DO [facility] Work Phone: Start: 02-06-2025 End: 02-06-2025 ambulatory [facility] Facility:[facility] Start: 01-09-2025 End: 01-09-[address] Neville Mccall [facility] Work Phone: Start: 01-09-2025 End: 01-09-2025 ambulatory [facility] Facility:[facility] Start: 12-26-2024 End: 12-26-[address] Denys Cuello MD Work Phone: [facility] Work Phone: Start: 12-26-2024 End: 12-26-[address] [facility] Start: 12-26-2024 End: 12-26-2024 ambulatory Timmy Manzano Facility:[facility] Start: 10-31-2024 End: 10-31-[address] Neville Mccall DO [facility] Work Phone: Start: 10-31-2024 End: 10-31-2024 ambulatory [facility] Facility:[facility] Start: 10-31-2024 End: 10-31-2024 ambulatory Lalito Zamora Facility:[facility] Start: 10-20-2024 End: 10-20-[address] Svitlana Becerril MD -Radiology, [facility] Work Phone: Start: 10-20-2024 End: 10-20-2024 ambulatory Svitlana Becerril Facility:[facility] Start: 09-30-2024 End: 09-30-2024 Emergency department patient visit [facility] Start: 09-29-2024 End: 09-29-2024 Emergency department patient visit Dr. Gianni Manciagetjamar MALDONADO -Emergency Department Work Phone: Start: 09-29-2024 End: 09-29-2024 ambulatory DENYS CUELLO Facility:[facility] Start: 09-29-2024 End: 09-29-2024 Patient encounter procedure Penny Soto APRN.REVERSE ENGINEER Work Phone: [facility] Comment on above: Elbow swelling, left (Primary Dx) Start: 07-24-2024 End: 07-24-2024 ambulatory Denys Cuello Facility:[facility] Start: 07-15-2024 End: 07-15-2024 Telephone encounter Penny Soto APRN.REVERSE ENGINEER Work Phone: [facility] Comment on above: Results Start: 07-15-2024 End: 07-15-2024 Subsequent hospital visit by physician [facility] Work Phone: Radiology Comment on above: Foot pain, left [[id number] .[id number]] Start: 07-15-2024 End: 07-15-2024 ambulatory DENYS CUELLO Facility:[facility] Start: 07-15-2024 End: 07-15-2024 Patient encounter procedure Penny Soto APRN.REVERSE ENGINEER Work Phone: [facility] Comment on above: Foot pain, left (Ceci amanda Dx) Start: 07-07-2024 ambulatory Marlene Salazar Facility:[facility] Start: 01-25-2024 End: 01-25-[address] Denys Cuello Work Phone: [facility] Work Phone: Start: 01-25-2024 End: 01-25-[address] Denys Cuello Work Phone: [facility]-Cat [facility] Work Phone: Start: 01-03-2024 End: 01-03-[address] Denys Cuello Work Phone: [facility] Work Phone: Start: 11-07-2023 End: 11-07-[address] Denys Cuello Work Phone: [facility] Internal Medicine Work Phone: Start: 10-16-2023 Non-patient / Non-visit Dr. Eloisa Cuello Work Phone: [facility] Work Phone: Start: 10-16-2023 Non-patient / Non-visit Dr. Eloisa Cuello Work Phone: [facility] Start: 10-11-2023 End: 10-11-[address] Denys Cuello Work Phone: [facility] Work Phone: Start: 10-11-2023 End: 10-11-[address] Denys Cuello Work Phone: [facility]-Cardiovascula r Services Work Phone: Start: 10-10-2023 End: 10-10-[address] Denys Cuello Work Phone: [facility] Work Phone: Start: 09-19-2023 End: 09-19-[address] Denys Cuello Work Phone: [facility] Work Phone: Start: 08-30-2023 End: 08-30-[address] Denys Cuello Work Phone: [facility] Work Phone: Start: 08-30-2023 End: 08-30-[address] Denys Cuello Work Phone: [facility] Work Phone: Start: 05-01-2023 End: 05-01-2023 Subsequent hospital visit by physician [facility] Work Phone: Radiology Comment on above: Acute right ankle pa in [M25.571] Start: 05-01-2023 End: 05-01-2023 Patient encounter procedure Patel Marcus APRN.CNP Work Phone: [facility] Comment on above: Acute right ankle pa in (Primary Dx) Start: 03-30-2023 Non-patient / Non-visit Dr. Eloisa Cuello Work Phone: [facility] Start: 03-30-2023 End: 03-30-2023 Admission to same day surgery center Dr. Denys Cuello Work Phone: [facility]-Endoscopy Start: 03-30-2023 End: 03-30-[address] Denys Cuello Work Phone: [facility] Work Phone: Start: 03-02-2023 End: 03-02-[address] Denys Cuello Work Phone: [facility] Start: 02-23-2023 End: 02-23-[address] Denys Cuello Work Phone: [facility] Start: 02-19-2023 End: 02-19-[address] Denys Cuello Work Phone: [facility] Start: 02-05-2023 End: 02-05-[address] Denys Cuello Work Phone: [facility] Work Phone: Start: 02-05-2023 End: 02-05-[address] Denys Cuello Work Phone: [facility] Internal [facility] Start: 12-29-2022 End: 12-29-[address] Denys Cuello Work Phone: [facility] Work Phone: Start: 12-29-2022 End: 12-29-[address] Denys Cuello Work Phone: [facility]-Pulmonary Services/Neurology Start: 12-14-2022 ambulatory DEREK JARA Facilit y:[facility] Start: 12-14-2022 ambulatory DEREK JARA Facilit y:[facility] Start: 12-14-2022 End: 12-14-2022 Subsequent hospital visit by physician Derek Jara MD, PhD Work Phone: [facility] Comment on above: Arrived Start: 12-08-2022 Non-patient / Non-visit Dr. Eloisa Cuello Work Phone: [facility] Start: 12-08-2022 End: 12-08-[address] Denys Cuello Work Phone: [facility] Start: 12-06-2022 End: 12-06-[address] Denys Cuello Work Phone: [facility] Work Phone: Start: 12-06-2022 End: 12-06-[address] Denys Cuello Work Phone: [facility] Start: 11-29-2022 ambulatory DEREK JARA Facilit y:[facility] Start: 11-21-2022 Non-patient / Non-visit Dr. Eloisa Cuello Work Phone: [facility] Start: 11-09-2022 End: 11-18-2022 Evaluation and management of inpatient DEREK JARA Facility:[facility] Start: 11-08-2022 End: 11-18-2022 Evaluation and management of inpatient Derek Jara MD, PhD Work Phone: Start: 11-08-2022 Non-patient / Non-visit Dr. Eloisa Cuello Work Phone: [facility] Start: 11-08-2022 Non-patient / Non-visit Dr. Eloisa Cuello Work Phone: [facility] Start: 11-08-2022 End: 11-08-2022 Evaluation and management of inpatient [facility]-Progressive Care Unit Start: 11-08-2022 End: 11-08-[address] Denys Cuello Work Phone: [facility] Work Phone: Procedures Date Procedure Procedure Detail Performing Clinician Start: 05-13-2025 MRI of lower extremity Svitlana Becerril MD Work Phone: Start: 2025 Plain x-ray of pelvi s and lower extremity Svitlana Becerril MD Work Phone: Start: 03-16-2025 X-ray of foot, three or more views Svitlana Becerril MD Work Phone: Start: 02-06-2025 Plain x-ray of pelvi s and lower extremity Svitlana Becerril MD Work Phone: Start: 01-09-2025 Plain x-ray of pelvi s and lower extremity Svitlana Becerril MD Work Phone: Start: 10-20-2024 Plain x-ray of pelvi s and lower extremity Dr. Denys Cuello MD Work Phone: Start: 07-15-2024 Radex foot complete minimum 3 views Penny Soto APPLICATION SUPPORT CONSULTANT.REVERSE ENGINEER Work Phone: Start: 01-25-2024 CT of chest without contrast Dr. Denys Cuello Work Phone: Start: 10-11-2023 Radionuclide imaging of perfusion of myocardium under exercise stress Dr. Denys Cuello Work Phone: Start: 08-30-2023 Plain chest X-ray Dr. Bryon Cuello Work Phone: Start: 05-01-2023 Radex ankle complete minimum 3 views Patel Marcus APPLICATION SUPPORT CONSULTANT.REVERSE ENGINEER Work Phone: Start: 03-30-[address] Dayo Cuello Work Phone: Start: 12-14-2022 Radiologic exam ches t 2 views Jamila Purcell APPLICATION SUPPORT CONSULTANT-REVERSE ENGINEER Work Phone: Start: 11-29-2022 Follow-up visit Follow-up DEREK JARA Start: 11-18-2022 Assay of magnesium Chri evan Mccabe DO Work Phone: Start: 11-17-2022 Radiologic exam ches t 2 views Forrest Ramirez APPLICATION SUPPORT CONSULTANT-REVERSE ENGINEER Work Phone: Start: 11-17-2022 End: 11-17-2022 Antibody screen Derek Jara MD, PhD Work Phone: Comment on above: Order Comment: Maint ain current type and screen. Performed By: #### X M #### [facility] (DEFAULT) [address] [place] [id number] Start: 11-17-2022 Assay of magnesium Chri evan Mccabe DO Work Phone: Start: 11-17-2022 Blood typing serologic abo Pallavi Darcy DO Work Phone: Start: 11-16-2022 Glucose measurement, blood Derek Jara MD, PhD Work Phone: Start: 11-16-2022 Radiologic exam ches t single view Conrad Manriquez PA-C Work Phone: Start: 11-16-2022 Glucose measurement, blood Derek Jara MD, PhD Work Phone: Start: 11-16-2022 Glucose measurement, blood Derek Jara MD, PhD Work Phone: Start: 11-16-2022 Assay of magnesium Brad Mccabe DO Work Phone: Start: 11-16-2022 C-reactive protein Brad Mccabe DO Work Phone: Start: 11-15-2022 Glucose measurement, blood Derek Jara MD, PhD Work Phone: Start: 11-15-2022 Glucose measurement, blood Derek Jara MD, PhD Work Phone: Start: 11-15-2022 Glucose measurement, blood Derek Jara MD, PhD Work Phone: Start: 11-15-2022 Glucose measurement, blood Derek Jara MD, PhD Work Phone: Start: 11-15-2022 Radiologic exam ches t single view Kristin Devine PA-C Work Phone: Start: 11-15-2022 Ecg routine ecg w/le ast 12 lds trcg only w/o i&r Pallavi Mccabe DO Work Phone: Start: 11-15-2022 Assay of magnesium Brad Mccabe DO Work Phone: Start: 11-14-2022 Glucose measurement, blood Derek Jara MD, PhD Work Phone: Start: 11-14-2022 CONTINUOUS CARDIAC MONITORING STRIP Other Other Start: 11-14-2022 Ecg routine ecg w/le ast 12 lds trcg only w/o i&r Pallavi Mccabe DO Work Phone: Start: 11-14-2022 Glucose measurement, blood Derek Jara MD, PhD Work Phone: Start: 11-14-2022 Assay of magnesium Brad Mccabe DO Work Phone: Start: 11-14-2022 Creatinine other source Darlene Talbot MD, PhD Work Phone: Start: 11-14-2022 Glucose measurement, blood Derek Jara MD, PhD Work Phone: Start: 11-14-2022 Assay of magnesium Brad Mccabe DO Work Phone: Start: 11-14-2022 End: 11-14-2022 Glucose measurement, blood Derek anaya MD, PhD Work Phone: Start: 11-14-2022 Radiologic exam ches t single view Pallavi Mccabe DO Work Phone: Start: 11-14-2022 Glucose measurement, blood Derek Jara MD, PhD Work Phone: Start: 11-14-2022 Blood gases any comb ination ph pco2 po2 co2 hco3 Kristin Devine PA-C Work Phone: Start: 11-14-2022 End: 11-14-2022 Glucose measurement, blood Derek anaya MD, PhD Work Phone: Start: 11-14-2022 Creatinine blood Nathen Mccabe DO Work Phone: Start: 11-14-2022 Glucose measurement, blood Derek Jara MD, PhD Work Phone: Start: 11-14-2022 Glucose measurement, blood Derek Jara MD, PhD Work Phone: Start: 11-13-2022 Blood gases any comb ination ph pco2 po2 co2 hco3 Pallavi Mccabe DO Work Phone: Start: 11-13-2022 Glucose measurement, blood Derek Jara MD, PhD Work Phone: Start: 11-13-2022 Glucose measurement, blood Derek Jara MD, PhD Work Phone: Start: 11-13-2022 End: 11-13-2022 Glucose measurement, blood Derek anaya MD, PhD Work Phone: Start: 11-13-2022 Radiologic exam ches t single view Pallavi Mccabe DO Work Phone: Start: 11-13-2022 Radiologic exam abdo men 1 view Pallavi Mccabe DO Work Phone: Start: 11-13-2022 Assay of magnesium Chri evan Mccabe DO Work Phone: Start: 11-13-2022 End: 11-13-2022 Blood gases any combination ph pco2 po2 co2 hco3 Pallavi Mccabe DO Work Phone: Start: 11-13-2022 Glucose measurement, blood Derek Jara MD, PhD Work Phone: Start: 11-13-2022 Ecg routine ecg w/le ast 12 lds trcg only w/o i&r Pallavi Mccabe DO Work Phone: Start: 11-13-2022 End: 11-13-2022 ACTIVATED CLOTTING TIME,POC Derek shaikh MD, PhD Work Phone: Start: 11-13-2022 End: 11-13-2022 Calcium ionized Derek Jara MD, PhD Work Phone: Start: 11-13-2022 End: 11-13-2022 ACTIVATED CLOTTING TIME,POC Derek shaikh MD, PhD Work Phone: Start: 11-13-2022 End: 11-13-2022 Calcium ionized Derek Jara MD, PhD Work Phone: Start: 11-13-2022 End: 11-13-2022 Calcium ionized Derek Jara MD, PhD Work Phone: Start: 11-13-2022 End: 11-13-2022 ACTIVATED CLOTTING TIME,POC Derek shaikh MD, PhD Work Phone: Start: 11-13-2022 Calcium ionized Derek Jara MD, PhD Work Phone: Start: 11-13-2022 ACTIVATED CLOTTING TIME,POC Derek Jara MD, PhD Work Phone: Start: 11-13-2022 End: 11-13-2022 Cabg w/arterial graft single arterial graft Derek Jara MD, PhD Work Phone: Start: 11-13-2022 CONTINUOUS CARDIAC MONITORING STRIP Other Other Start: 11-13-2022 Thromboplastin time partial plasma/whole blood Forrest Stephenson List APPLICATION SUPPORT CONSULTANT-REVERSE ENGINEER Work Phone: Start: 11-13-2022 Thromboplastin time partial plasma/whole blood Forrest Stephenson List APPLICATION SUPPORT CONSULTANT-REVERSE ENGINEER Work Phone: Start: 11-12-2022 Antibody screen DEREK SILVER Comment on above: Performed By: #### U LYTR, UCRER #### [facility] ([place] [address] Start: 11-12-2022 Antibody screen Derek silver MD, PhD Work Phone: Start: 11-12-2022 Blood typing serologic abo Andrew Lawson APPLICATION SUPPORT CONSULTANT-REVERSE ENGINEER Work Phone: Start: 11-12-2022 PREPARE TO TRANSFUSE OR RED BLOOD CELLS Andrew Lawson APPLICATION SUPPORT CONSULTANT-REVERSE ENGINEER Work Phone: Start: 11-12-2022 Thromboplastin time partial plasma/whole blood Forrest Stephenson List APPLICATION SUPPORT CONSULTANT-REVERSE ENGINEER Work Phone: Start: 11-12-2022 CONTINUOUS CARDIAC MONITORING STRIP Other Other Start: 11-12-2022 End: 11-12-2022 Thromboplastin time partial plasma/whole blood Forrest Ramirez APPLICATION SUPPORT CONSULTANT-REVERSE ENGINEER Work Phone: Start: 11-11-2022 Thromboplastin time partial plasma/whole blood Forrest Ramirez APPLICATION SUPPORT CONSULTANT-REVERSE ENGINEER Work Phone: Start: 11-11-2022 CONTINUOUS CARDIAC MONITORING STRIP Other Other Start: 11-11-2022 Thromboplastin time partial plasma/whole blood Forrest Ramirez APPLICATION SUPPORT CONSULTANT-REVERSE ENGINEER Work Phone: Start: 11-10-2022 Thromboplastin time partial plasma/whole blood [facility] Work Phone: Start: 11-10-2022 Thromboplastin time partial plasma/whole blood Forrest Stephenson [facility] Work Phone: Start: 11-10-2022 Spmtry w/vc expirato ry floyd w/wo mxml vol vntj Forrest Ramirez [facility] Work Phone: Start: 11-10-2022 End: 11-10-2022 Dup-scan uxtr art/artl bpgs uni/lmtd study Wendie NOLASCOC Work Phone: Start: 11-10-2022 Duplex scan extracra nial art compl bi study Wendie NOLASCOC Work Phone: Start: 11-10-2022 CONTINUOUS CARDIAC MONITORING STRIP Other Other Start: 11-10-2022 Thromboplastin time partial plasma/whole blood Forrest Stephenson [facility] Work Phone: Start: 11-10-2022 Creatinine blood Forrest Ramirez APPLICATION SUPPORT CONSULTANT-REVERSE ENGINEER Work Phone: Start: 11-09-2022 Thromboplastin time partial plasma/whole blood Forrest Stephenson [facility] Work Phone: Start: 11-09-2022 Glucose measurement, blood Derek Jara MD, PhD Work Phone: Start: 11-09-2022 Ct thorax w/o contra st material Wendie Frankel PA-C Work Phone: Start: 11-09-2022 Thromboplastin time partial plasma/whole blood Forrest Ramirez APPLICATION SUPPORT CONSULTANT-REVERSE ENGINEER Work Phone: Start: 11-09-2022 Iadna s aureus ampli fied probe tq Wendie Frankel PA-C Work Phone: Start: 11-09-2022 CONTINUOUS CARDIAC MONITORING STRIP Other Other Start: 11-09-2022 Thromboplastin time partial plasma/whole blood Forrest M List APPLICATION SUPPORT CONSULTANT-REVERSE ENGINEER Work Phone: Start: 11-09-2022 Glucose measurement, blood Derek Jara MD, PhD Work Phone: Start: 11-09-2022 End: 11-09-2022 Antibody screen Derek Jara MD, PhD Work Phone: Comment on above: Performed By: #### X M #### [facility] ([facility]) [address] [place] [address] Start: 11-09-2022 ABORH TYPE RECONFIRMATION Mark Anthony HERRERA Start: 11-09-2022 Assay of triiodothyr onine t3 total tt3 Wendie Frankel PA-C Work Phone: Start: 11-09-2022 TROPONIN 1 HOUR Forrestshweta Ramirez APPLICATION SUPPORT CONSULTANT-REVERSE ENGINEER Work Phone: Start: 11-09-2022 Lipid 1996 panel - S gunnar or Plasma Derek Jara MD, PhD Work Phone: Start: 11-09-2022 Radiologic exam ches t single view Forrest Sachin Ramirez APPLICATION SUPPORT CONSULTANT-REVERSE ENGINEER Work Phone: Start: 11-09-2022 Bilirubin direct Forrest Sachin Ramirez APPLICATION SUPPORT CONSULTANT-REVERSE ENGINEER Work Phone: Start: 11-09-2022 CBC AND ELECTRONIC DIFF Forrest Sachin List APPLICATION SUPPORT CONSULTANT-REVERSE ENGINEER Work Phone: Start: 11-09-2022 Complete blood count with white cell differential, automated Forrest Sachin Ramirez APPLICATION SUPPORT CONSULTANT-REVERSE ENGINEER Work Phone: Start: 11-09-2022 EXTRA MICRO Forrest darling APPLICATION SUPPORT CONSULTANT-REVERSE ENGINEER Work Phone: Start: 11-09-2022 HIGH SENSITIVITY TRO PONIN I X2 Forrest Stephenson [facility] APPLICATION SUPPORT CONSULTANT-[facility] Work Phone: Start: 11-09-2022 Lipid panel Forrest darling APPLICATION SUPPORT CONSULTANT-REVERSE ENGINEER Work Phone: Start: 11-09-2022 TROPONIN I INITIAL Oleg Stephenson [facility] APPLICATION SUPPORT CONSULTANT-[facility] Work Phone: Start: 11-09-2022 URINALYSIS REFLEX TO CULTURE Forrest Stephenson [facility] APPLICATION SUPPORT CONSULTANT-[facility] Work Phone: Start: 11-09-2022 Urnls dip stick/tabl et reagent auto microscopy Forrest Stephenson [facility] APPLICATION SUPPORT CONSULTANT-[facility] Work Phone: Start: 11-08-2022 Glucose measurement, blood Derek Jara MD, PhD Work Phone: Start: 11-08-2022 Plain chest X-ray Start: 10-15-2022 History of coronary artery bypass grafting History of coronary artery bypass surgery Dr. Neville Mccall DO Comment on above: CABG x2: SNOWDEN-LAD, S VG-OM 11/13/[address] Derek Jara History of coronary artery bypass grafting S/P CABG (coronary artery bypass graft) Derek Jara MD, PhD Work Phone: Plan of Treatment Date Care Activity Detail Author Start: 11-09-2027 Lipid panel [facility] Start: 07-15-2027 Diabetes Screening Diabetes Screening [facility] Start: 12-14-2025 Diabetes Screening Diabetes Screening [facility] Start: 2025 Plain x-ray of pelvis and lower extremity HIP, UNI W/ Pelvis 2-3 Views [facility] Start: 2025 XR Pelvis and Hip Views [facility] Start: 06-15-2024 Covid-19 Vaccine () Covid-19 Vaccine () [facility] Start: 06-15-2024 Covid-19 Vaccine ( season) Covid-19 Vaccine ( season) [facility] Start: 06-15-2024 Influenza vaccination Influenza Vaccine (#1) [facility] Start: 12-15-2023 Potassium [Moles/volume] in Serum or Plasma POTASSIUM [facility] Start: 11-18-2023 Finding of potassium level (finding) [facility] Start: 11-09-2023 Screening for malignant neoplasm of lung [facility] Start: 06-15-2023 Influenza vaccination INFLUENZA (#1) [facility] Start: 03-30-2023 Patient discharge [facility] Start: 02-05-2023 Patient referral [facility] Work Phone: Start: 12-14-2022 End: 12-14-2022 ambulatory [facility] Start: 12-08-2022 Patient referral [facility] Work Phone: Start: 11-09-2022 Thyroid stimulating hormone measurement [facility] Start: 11-09-2022 [facility] Start: 11-08-2022 Patient discharge [facility] Start: 11-08-2022 Troponin I measurement [facility] Start: 11-08-2022 Notification of physician [facility] Start: 11-08-2022 Patient education [facility] Start: 11-08-2022 Provision of activity privileges [facility] Start: 11-08-2022 Pulse taking [facility] Start: 11-08-2022 Taking patient vital signs [facility] Start: 11-08-2022 Wound care [facility] Start: 11-08-2022 [facility] Start: 11-08-2022 Following clinical pathway protocol [facility] Start: 11-08-2022 Catheterization of vein [facility] Start: 11-08-2022 Medication not administered [facility] Start: 11-08-2022 Notification of physician [facility] Start: 11-08-2022 Preoperative care [facility] Start: 11-08-2022 Ambulation without limitation [facility] Start: 11-08-2022 Assessment of risk of venous thromboembolism [facility] Start: 11-08-2022 Electrocardiographic procedure [facility] Start: 11-08-2022 Incentive spirometry [facility] Start: 11-08-2022 Insertion of catheter into peripheral vein [facility] Start: 11-08-2022 Measuring intake and output [facility] Start: 11-08-2022 Oxygen therapy [facility] Start: 11-08-2022 Providing care according to standard [facility] Start: 11-08-2022 Referral to loan inspector [facility] Start: 11-08-2022 Referral to service [facility] Start: 11-08-2022 Tobacco use cessation education [facility] Start: 11-08-2022 End: 11-08-2022 [facility] Start: 11-08-2022 End: 11-08-2022 Troponin I measurement [facility] Start: 11-08-2022 D-dimer assay, quantitative [facility] Start: 11-08-2022 Verification routine [facility] Start: 11-08-2022 Admission procedure [facility] Start: 11-08-2022 Patient referral to dietitian [facility] Start: 10-15-2022 DEPRESSION ASSESSMENT DEPRESSION ASSESSMENT [facility] Start: 06-15-2022 Influenza vaccination [facility] Start: 2022 Influenza vaccination LUNG CANCER SCREENING [facility] Start: 2022 Prostate specific antigen measurement [facility] Start: 2022 SHINGRIX VACCINE (1 of 2) SHINGRIX VACCINE (1 of 2) [facility] Start: 2022 Zoster vaccine hzv live for subcutaneous use ZOSTER (SHINGLES) VACCINE (1 of 2) [facility] Start: 2022 [facility] Start: 2017 COLOGUARD (FIT-DNA) COLOGUARD (FIT-DNA) [facility] Start: 2017 Colonoscopy COLONOSCOPY [facility] Start: 2017 COLORECTAL CANCER SCREENING COLORECTAL CANCER SCREENING [facility] Start: [address] COLONOGRAPHY [facility] Start: 2017 DIABETES SCREEN DIABETES SCREEN [facility] Start: 2017 FECAL OCCULT BLOOD FECAL OCCULT BLOOD [facility] Start: 2017 Screening for malignant neoplasm of colon [facility] Start: 2017 SIGMOIDOSCOPY SIGMOIDOSCOPY [facility] Start: 05-29-2012 LIPID SCREEN LIPID SCREEN [facility] Start: 1991 Hepatitis B Vaccine (1 of 3 - 19+ 3-dose series) Hepatitis B Vaccine (1 of 3 - 19+ 3-dose series) [facility] Start: 1991 Pneumococcal Vaccine: 50+ (1 of 2 - PCV) Pneumococcal Vaccine: 50+ (1 of 2 - PCV) [facility] Start: 1991 Third diphtheria, tetanus and acellular pertussis (DTaP) vaccination [facility] Start: 1991 Urine microalbumin profile [facility] Start: 1990 Anxiety Screening Anxiety Screening [facility] Start: 1990 Depression Screening Depression Screening [facility] Start: 1990 HEPATITIS C SCREENING HEPATITIS C SCREENING [facility] Start: 1990 Hepatitis C screening Hepatitis C Screening [facility] Start: 1990 HIV SCREENING HIV SCREENING [facility] Start: 1990 HIV screening HIV Screening [facility] Start: 1987 HIV screening [facility] Start: 1978 PNEUMOCOCCAL (1 - PCV) PNEUMOCOCCAL (1 - PCV) [facility] Start: 1978 Pneumococcal vaccination Pneumococcal Vaccine (1 of 2 - PCV) [facility] Start: 1978 [facility] Start: 1972 COVID-19 VACCINE (#1) COVID-19 VACCINE (#1) [facility] Start: 1972 [facility] Start: 1972 HEPATITIS B (1 of 3 - 3-dose series) HEPATITIS B (1 of 3 - 3-dose series) [facility] Start: 1972 Hepatitis C screening [facility] Start: 1972 Tetanus vaccination [facility] 24 Hour ECG [facility] Alanine aminotransfe rase [Enzymatic activity/volume] in Serum or Plasma [facility] Albumin [Mass/volume ] in Serum or Plasma [facility] Alkaline phosphatase [Enzymatic activity/volume] in Serum or Plasma [facility] Anion gap measurement [facility] Aspartate aminotrans ferase [Enzymatic activity/volume] in Serum or Plasma [facility] Bilirubin, total measurement [facility] BUN/Creatinine ratio [facility] Calcium [Mass/volume ] in Serum or Plasma [facility] Carbon dioxide, tota l [Moles/volume] in Serum or Plasma [facility] Chloride [Moles/volu me] in Serum or Plasma [facility] Cholesterol [Mass/vo lume] in Serum or Plasma [facility] Cholesterol in HDL [Mass/volume] in Serum or Plasma [facility] Cholesterol in LDL [Mass/volume] in Serum or Plasma [facility] Colonoscopy [facility] Creatinine [Moles/vo lume] in Serum or Plasma [facility] Glucose [Mass/volume ] in Serum or Plasma [facility] Hematocrit [Volume F raction] of Blood [facility] Hemoglobin [Mass/vol ume] in Blood [facility] Hepatic function panel [facility] Leukocytes [#/volume] in Blood [facility] Lipid 1995 panel - S gunnar or Plasma [facility] Lipid 1995 panel - S gunnar or Plasma [facility] Magnesium [Mass/volu me] in Serum or Plasma [facility] Mean corpuscular hem oglobin concentration determination [facility] Mean corpuscular hem oglobin determination [facility] Measurement of renal function [facility] Neutrophil count [facility] Neutrophil percent differential count [facility] Patient referral [facility] Work Phone: Platelets [#/volume] in Blood [facility] Potassium [Moles/vol ume] in Serum or Plasma [facility] Radionuclide imaging of perfusion of myocardium under exercise stress [facility] Red blood cell count [facility] Red cell distributio n width determination [facility] Sodium [Moles/volume ] in Serum or Plasma [facility] Total protein measurement [facility] Triglycerides measurement [facility] Urate [Mass/volume] in Serum or Plasma [facility] Urea nitrogen [Mass/ volume] in Serum or Plasma [facility] VLDL cholesterol measurement [facility] XR Shoulder GE 2 [facility] Payers Date Payer Category Payer Self-pay [id number] 2023 Private Health Insurance [id number] 2020 Private Health Insurance [id number] 2020 Private Health Insurance [id number] 1972 Unknown [id number] [id number] 94 1972 Unknown [id number] 2.16.840.1.991471.3.579.2.5 94 1972 Unknown [id number] 2.16.840.1.712109.3.579.2.5 94 1972 Unknown [id number] 2.16.840.1.468838.3.579.2.5 94 1972 Unknown [id number] 2.16.840.1.434559.3.579.2.5 94 Unknown SELF INS [facility] [id number] Unknown [id number] 2.16.840.1.437648.3.579.2.4 62 Unknown [id number] 2.16.840.1.300816.3.579.2.4 62 Unknown [id number] 2.16.840.1.915831.3.579.2.4 62 Unknown [id number] 2.16.840.1.036071.3.579.2.4 62 Unknown [id number] 2.16.840.1.521899.3.579.2.4 62 Unknown [id number] 2.16.840.1.134644.3.579.2.4 62 Unknown [id number] 2.16.840.1.868274.3.579.2.4 62 Unknown [id number] 2.16.840.1.277287.3.579.2.4 62 Unknown [id number] 2.16.840.1.984198.3.579.2.4 62 Unknown [id number] 2.16.840.1.657328.3.579.2.4 62 Unknown [id number] 2.16.840.1.961564.3.579.2.4 62 Unknown [id number] 2.16.840.1.643750.3.579.2.4 62 Unknown [id number] 2.16.840.1.201599.3.579.2.4 62 Unknown [id number] 2.16.840.1.993241.3.579.2.4 62 Unknown [id number] 2.16.840.1.454891.3.579.2.4 62 Unknown [id number] 2.16.840.1.318806.3.579.2.4 62 Unknown [id number] 2.16.840.1.829769.3.579.2.4 62 Unknown [id number] 2.16.840.1.781955.3.579.2.4 62 Unknown [id number] 2.16.840.1.275067.3.579.2.4 62 Unknown [id number] 2.16.840.1.349692.3.579.2.4 62 Social History Date Type Detail Facility Start: 11-08-2022 End: 01-03-2024 Tobacco smoking status LAIS Unknown if ever smoked [facility] Start: 1970 Sex Assigned At Male [facility] Start: 11-09-2022 End: 05-05-2025 Tobacco smoking status NHIS Smokes tobacco daily [facility] History of tobacco use Cigarette Smoker [facility] Start: 11-09-2022 End: 09-29-2024 Cigarettes smoked current (pack per day) - Reported [facility] Start: 11-09-2022 End: 07-15-2024 Tobacco use and exposure Smokeless tobacco non-user [facility] Start: 11-15-2022 End: 09-29-2024 Alcohol intake Current drinker of alcohol (finding) [facility] Start: 1970 Sex Assigned At [facility] Start: 10-30-2022 End: 12-14-2022 Exposure to SARS-CoV-2 (event) Not sure [facility] Start: 12-14-2022 Tobacco smoking stat us NHIS Ex-smoker [facility] History of tobacco use Current smoker [facility] Start: 05-01-2023 End: 09-29-2024 Tobacco use panel [facility] Start: 01-06-2025 Sex Male (finding) [facility] Medical Equipment Procedure Code Equipment Code Equipment Origin al Text Equipment Identifier Dates [id number] Start: 11-13-2022 Goals Date Patient Goal Desired Activity /State Functional Status Date Assessment Result Facility 11-08-2022 Functional status Ambulates;Up ad yann [facility] Work Phone: Mental Status Date Assessment Result Facility 03-30-2023 Cognitive function Voice/Name [facility] Work Phone: 11-08-2022 Cognitive function Voice/Name [facility] Work Phone: Clinical Notes 10-15-2022 to 2025 Note Date & Type Note Facility 2025 Progress note [facility] 2025 Progress note Note Date/Time 2025 12:04pm [facility] [address] [place] [address] [address] [place] [address] OFFICE VISIT Date of Service: 04/24/25 MR#: [id number] Acct: [id number] Name: LAURA STEPHENS Rep #: [id number] : 1970 Provider: Dr. Yuri Mccall DO Age/Sex: 55/M Location: [facility] Status: Signed Intake Vital Signs 02/06/25 08:04 Height 6 ft Intake Visit Reasons: RIGHT HIP Chief Complaint: Right hip follow-up Is patient in pain?: Yes (Right hip ) Pain scale (1-10): 2 Allergies No Known Allergies Allergy (Verified 04/24/25 11:20) Medications ?Medication ?Instructions ?Recorded ?Confirmed ?Type acetaminophen 325 mg tablet 650 mg PO Q4H PRN Pain 05/0604/24/25 History aspirin 81 mg chewable tablet 81 mg PO DAILY 11/21/22 04/24/25 History (Alyse Chewable Low Dose Aspirin) cholecalciferol (vitamin D3) 10 10 mcg PO DAILY 04/24/25 History mcg (400 unit) capsule alprazolam 0.25 mg tablet (Xanax) 0.25 mg PO DAILY PRN anxiety #5 10/10/23 04/24/25 Rx tabs atorvastatin 80 mg tablet 40 mg (1/2 x 80 mg) PO QHS # 90 tabs 04/21/24 04/24/25 Rx fluoxetine 20 mg capsule mg PO DAILY 10/31/24 5 History allopurinol 100 mg tablet 100 mg PO QDAY 01/09/2504/14 History metoprolol tartrate 25 mg tablet 12.5 mg (1/2 x 25 mg) PO BID #90 04/07/25 04/24/25 Rx tabs PFSH Medical History Gout Wears glasses History of steroid therapy High cholesterol History of heart attack Former smoker History of echocardiogram Cardiology follow-up encounter BPH (benign prostatic hyperplasia) GI bleed Borderline type 2 diabetes mellitus Bilateral shoulder pain Essential hypertension 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 Multi-vessel coronary artery stenosis (11/08/22) Alcohol abuse Tobacco abuse 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 Surgical History History of cardiac catheterization History of coronary artery bypass surgery (~11/13/22) Family History Grandmother Breast cancer Father Prostate cancer Skin cancer CAD (coronary artery disease) Mother Hypertension High cholesterol Grandfather CAD (coronary artery disease) Social History 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 Neville Mccall, DO 04/24/25 0840. Part of today?s visit was documented by Sapphire Marcus RN, acting as scribe. LAURA STEPHENS is a 55 year old M here today for ongoing right hip pain. He states his uric acid level is down to 6 as of March 16. The hip is popping and and clicking with movement and ROM. He is no longer taking the Indomethacin because it was not helpful. He does take Ibuprofen now as needed with minimal relief. Hereports ongoing issues with sleep at night due to the pain. The pain is still onthe lateral side and going into the groin. He denies numbness or tingling into the leg. No recent PT or pain management. Patient's right knee started bothering him over the last 6 months and he noticesincreased pain when standing longer periods. 02/06/2025 visit: 54 year old M here today for increased right hip pain over thelast two weeks. he is still taking the indomethacin and allopurinol 100mg QD . He has not had his uric acid tested recently and his last was over 10. He states he has been following the gout diest. He states that within the past 2 weeks he has been having increased pain that is progressively getting worse, andhas missed work because of it. He has been having trouble sleeping at night dueto the pain. He states that initially the indomethacin seemed to help but at this point he doesn't think it is helping. He states that his pain is the worst in the morning and at night but he states that it can be hit or miss. His painis over the lateral side and in the groin. 01/09/2025: here today for right hip follow-up. Patient rates his pain 2/10 today. Patient states he did nonweight-bearing the best he could but when he first started it was icy out so it was a struggle. He did have a gout flare-up uric acid 10.8 on 12/26/[address] Ray prescribed him allopurinol. He has finished the alendronate as well as the celebrex. He states if he moves the hip just right the hip will freeze and feel like it needs to pop. He states it has not gotten better since his last visit. Plan:Obtained and reviewed additional hip imaging today, there has been no progression of AVN lesion. Recent blood work indicated uric acid elevated greater than 10 may be primary source of hip pain was started on allopurinol by PCP. I did explain that pain from gout will not be resolved with hip arthroplasty. Recommend continued lowering of uric acid and see where he is at in terms of pain control and function. We would need uric acid levels within normal range and he would need to quit vaping for 6 weeks if treatment plan tookus towards arthroplasty . Recommend patient follow-up in 6 weeks to see if the uric acid levels have decreased and see how he is doing pain lazo. Will give patient a prescription for indomethacin and he should take it for a few days in a row and then can change to PRN. Follow up in 6 weeks or sooner if pain, swelling, numbness or associated symptoms, or concerns develop. All questions answered. Patient in agreement of plan. 10/31/2024:54 year old M with medical comorbidities significant for but not limited to gout, myalgia, anxiety depression, non-ST elevation NJ, unstable angina, GI bleed, borderline type 2 diabetes, tobacco abuse(current vape), hypertension history of coronary artery bypass surgery, on Xanax here today for initial evaluation of right hip pain. He reports a 4 month history of hip pain. He saw his pcp and had x-rays and was referred to our office. He reports the pain extends into his groin and down the lateral hip into the thigh. He denies injury or surgery to the hip. He takes Ibuprofen as needed for the pain. He has not seen pain management or done PT. He does get some popping in the hip at night and it sometimes wakes him up at night. He was a heavy drinker up until about 2 years ago, he does still drink just not as heavily. He denies any history of cocaine use or scuba diving or extended steroid use. Of note his pain is worse over the posterior lateral hip than it is in the groin does extendinto the groin to a lesser degree his pain is not severe but can be worse with stairs. Of note he did have pain in his left hip back in 2019 and he did have adependence of AVN at that time and subsequently his pain resolved. Of note his son has AVN. Plan:Patient is here today for right hip pain and I reviewed xrays today with patient and informed him that he does have avascular necrosis with some mild flattening of the femoral head , of note he has had a AVN lesion in his left hipsince 2019 initially had pain that subsequently resided and is having no furtherissues. . In regards to the symptomatic right hip his pain is slightly unusualfor AVN at his is mostly lateral and posterior lateral although he does have some groin pain and symptoms are not severe. He does seem to have some tenderness over the piriformis and external rotators of the hip which may be more muscular in origin. The treatment options for this are do nothing, protected weightbearing with crutches ideally nonweightbearing, physical therapy for the external rotators and possible muscular contribution, bisphosphonate for AVN and JENNIE. We also discussed nicotine cessation for the treatment of AVN but also would be needed to proceed with total hip arthroplasty. patient did have a skiing injury 10 years ago along with he used to be a heavy alcoholic up until 2 years ago, he does still drink but not as heavily. I advised patient that the popping that he is having over the lateral hip is likely from inflammation of the iliotibial band. Patient wishes to proceed with being non weightbearing for 6 weeks and osteoporosis medication. I spoke with patient that we will reach out to his loan inspector to see if he is able to take NSAIDs given his history if cleared stefanie send him an NSAID as well. Ortho Exam General General: Yes no acute distress and Yes well groomed Neurologic: Yes alert and Yes oriented x3 Psychologic: Yes reasonable and appropriate Right Knee Skin/Wound: Yes CDI, No erythema, No ecchymosis and No swelling Knee ROM: Yes ROM-Extension -20 to 0 and No ROM-Flexion 0-140 (120) Examination: No Med jt line tenderness, No Lat jt line tenderness, No Crepitus, No Pain with extention and No Ludivina's Test Stability: NML: Marilee, NML: Posterior Drawer, NML: Valgus 0, NML: Valgus 30, NML: Varus 0 and NML: Varus 30 Patella Translation: 1 KNEE: pain over lateral aspect full EXT no joint effusion - patellar instability Valdovinos's Cyst present full FLEX - tenderness medial joint line - tenderness lateral joint line - tenderness pes Left Knee Patella Translation: 1 Right Hip Skin: Yes CDI, No Ecchymosis, No soft tissue swelling and No Erythema internal rotation @90 degree flexion: 10 degrees external rotation @90 degree extension: 65 degrees HIP: no redness,ecchymosis, or masses tender over greater sciatic notch,piriformis area with some tightness pain over lateral hip with abbduction but good strength 5 out of 5 hip flexion strength he does get mild discomfort with hip range of motion but it is worse onthe lateral side of his hip. No gross motor or sensory deficits right lower extremity. Supplemental Info 2025 x-ray right hip there is more lucency to the cystic lesions of the femoral head 02/06/2025 x-ray right hip: No collapse but presence of AVN multiple cystic changes of the femoral head and flattening unchanged 01/09/2025 x-ray right hip: No change 12/26/2024 uric acid: 10.8 10/20/2024 x-ray right hip: New avascular necrosis in the right superior femoral head. New flattening of the articular surface of the right superior femoral head, compatible with subchondral collapse. Unchanged avascular necrosis of the left femoral head. Coding Level of Care Code Off vis,est,level 3 Diagnoses Avascular necrosis of right femur M87.051 Laterality: right Assessment and Plan Assessment and Plan (1) AVN of femur: Status: Acute Qualifiers: Laterality: right Qualified Code(s): M87.051 - Idiopathic aseptic necrosis of right femur Orders: Orders HIP, UNI W/ Pelvis 2-3 Views Today M87.051 - Idiopathic aseptic necrosis of right femur Plan Obtained and reviewed right hip x-rays today in the clinic. Reviewed imaging findings today with the patient. Explained that his hip does not look any betterand at this point it is likely not going to get better . Spoke to patient about option to proceed with left JENNIE. Patient would like to proceed with JENNIE at this time. Risks, benefits and alternatives of surgery reviewed including but not limited to bleeding, infection, nerve, foot drop, artery and/or tissue damage, fracture, VTE, leg length discrepancy, dislocation, need for hip precautions, continued pain and expected post-operative course. Explained that physical therapy after surgery is very important to get into PT right away and at least for the first 6 weeks. Patient would like to proceed with surgery as soon as possible. As for the knee we can order an x-ray and he can get it at his convenience and Iwill call him to go over the results. Depending on what the x-ray shows we can talk about his options. He should not take any Ibuprofen, Indemethacin or any NSAIDs 7day prior to surgery. He will need medical and cardiac clearance and a CT scan Tentative surgery date 05/19/2025 same-day surgery Follow up after surgery for post-op appointment or sooner if pain, swelling, numbness or associated symptoms, or concerns develop. All questions answered. Patient in agreement of plan. 04/24/25 1204 <Electronically signed by Neville nolasco DO> Date _ Neville Mccall DO Cosignshweta Signature: Date (if applicable) CC: ~ [facility] Work Phone: 1(621) 618-881206-02-2025 Radiology Diagnostic study note [facility] Imaging Services [address] [place] [address] Foot min 3 Views MR#: [id number] Acct: [id number] Name: LAURA STEPHENS Rep #: [id number] : 1970 M 54 From: Apolonia Haskins MD PCP: Dr. Svitlana Becerril MD Status: REG CL I Study:Foot min 3 Views Date of Exam: 12/09 Exam# [id number] Ordering Dr: Alexandra Becerril MD PROCEDURE: FOOT MIN 3 VIEWS 03/16/2025 REASON FOR EXAM: LEFT FOOT PAIN TECHNIQUE: 3 views of the left foot. COMPARISON: None FINDINGS: Bones: No visible fracture. No suspicious bone lesion. Joints: Normal alignment. Joint spaces preserved. No arthropathic features. Soft tissues: Soft tissues are unremarkable. RAD/Foot min 3 Views IMPRESSION: Unremarkable radiographs of the left foot. Reading Location: [facility] CC: Dr. 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 Driver: Signed [facility]04-25-2025 Evaluation note* Diagnosis Onset Date Resolution Status Admit Date AVN of femur acute February 06, 2025 7:57am Gout acute February 06 7:57am Hip pain acute February 06 7:57am Tobacco abuse acute February 06, 2025 7:57am AVN of femur acute April 24 11:18am Atherosclerotic heart diseas e of ewiiaapaayp coronary artery without angina pectoris acute May 14, 2025 10:13am High cholesterol acute April 10:13am Preop cardiovascular exam acute May 14, 2025 10:13am [facility] Work Phone: 1(277) 240-559703-28-2025 Evaluation note* Diagnosis Onset Date Resolution Status Admit Date AVN of femur acute January 09, 2025 8:58am Gout acute January 09 8:58am Hip pain acute January 09 8:58am Tobacco abuse acute January 09, 2025 8:58am AVN of femur acute February 06, 2025 7:57am Gout acute February 06 7:57am Hip pain acute February 06 7:57am Tobacco abuse acute February 06, 2025 7:57am [facility] Work Phone: 1([phone]) 268-115703-28-2025 Evaluation note* Diagnosis Onset Date Resolution Status Admit Date AVN of femur acute January 09, 2025 8:58am Gout acute January 09 8:58am Hip pain acute January 09 8:58am Tobacco abuse acute January 09, 2025 8:58am AVN of femur acute February 06, 2025 7:57am Gout acute February 06 7:57am Hip pain acute February 06 7:57am Tobacco abuse acute February 06, 2025 7:57am AVN of femur acute April 24, 11:18am [facility] Work Phone: 1(164) 245-888101-17-2025 Evaluation note* Diagnosis Onset Date Resolution Status Admit Date AVN of femur acute October 9:16am Gout acute October 31, 2024 9:16am Hip pain acute October 31, 2024 9:16am History of coronary artery bypass surgery October, acute October 31 9:16am [facility] Work Phone: 1(422) 218-399612-16-2024 NoteHNO ID: [id number] Author: PENNY SOTO APRN.REVERSE ENGINEER Service: ? Author Type: Nurse Practitioner Type: Progress Notes Filed: 09/29/2024 16:53 Note Text: This note was created using NoteWriter. Subjective Laura Stephens is a 54 year old male. 54 year old male with PMH gout presents for elbow complaints. Acute onset of symptoms was 2 to 3 days ago Left elbow +redness +swelling +reduced and limited ROM Denies known trauma or injury Denies prior history of same The history is provided by the patient. No geotechnical laboratory technician was used. Musculoskeletal Problem This is a new problem. The current episode started in the past 7 days. The problem occurs constantly. The problem has been gradually worsening. Associated symptoms include joint swelling. Pertinent negatives include no abdominal pain, anorexia, arthralgias, change in bowel habit, chest pain, chills, congestion, coughing, diaphoresis, fatigue, fever, headaches, myalgias, nausea, neck pain, numbness, rash, sore throat, swollen glands, urinary symptoms, vertigo, visual change, vomiting or weakness. Nothing aggravates the symptoms. He has tried nothing for the symptoms. The treatment provided no relief. History reviewed. No pertinent past medical history. PAST SURGICAL HISTORY Procedure Laterality Date NONE ALLERGIES Patient has no known allergies. MEDICATIONS sertraline (ZOLOFT) 100 mg tablet take 1 and ONE-HALF tablets BY MOUTH ONCE DAILY acetaminophen (TYLENOL) 325 mg tablet Take 650 mg by mouth every 4 hours as needed. aspirin 81 mg chewable tablet Take 1 tablet by mouth once daily. atorvastatin (LIPITOR) 80 mg tablet metoprolol tartrate, short acting, (LOPRESSOR) 25 mg tablet predniSONE (DELTASONE) 10 mg tablet Take 4 tabs daily for 3 days, then 2 tabs daily for 3 days, then 1 tab daily for 3 days with food. (Patient not taking: Reported on 09/29/2024) clopidogrel (PLAVIX) 75 mg tablet (Patient not taking: Reported on 07/15/2024) melatonin 3 mg tablet Take 6 mg by mouth. (Patient not taking: Reported on 07/15/2024) hydrocortisone (ANUSOL-HC) 25 mg RECTAL suppository 1 Suppository by RECTAL route twice daily as needed (hemorrhoids/rectal pain). (Patient not taking: Reported on 05/01/2023) psyllium Husk 0.52 g ORAL capsule Take 1 capsule by mouth once daily. (Patient not taking: Reported on 05/01/2023) FAMILY HISTORY Problem Relation Age of Onset Hypertension Mother Prostate Cancer Father 64 Diabetes Maternal Grandmother Heart Maternal Grandfather Social History Tobacco Use Smoking status: Every Day Current packs/day: 1.00 Average packs/day: 1 pack/day for 20.0 years (20.0 ttl pk-yrs) Types: Cigarettes Smokeless tobacco: Never Substance Use Topics Alcohol use: Yes Alcohol/week: 40.0 standard drinks of alcohol Types: 40 Cans of Beer (12oz) per week Drug use: No Review of Systems Constitutional: Negative for chills, diaphoresis, fatigue and fever. HENT: Negative for congestion and sore throat. Respiratory: Negative for cough. Cardiovascular: Negative for chest pain. Gastrointestinal: Negative for abdominal pain, anorexia, change in bowel habit, nausea and vomiting. Musculoskeletal: Positive for joint swelling. Negative for arthralgias, myalgias and neck pain. Left elbow pain Skin: Negative for rash. Neurological: Negative for vertigo, weakness, numbness and headaches. Hematological: Negative for adenopathy. Does not bruise/bleed easily. Objective BP 124/82 Pulse 97 Temp 36.6 ?C (97.9 ?F) (Tympanic) Resp 16 Wt 105.5 kg (232 lb 9.4 oz) SpO2 98% Physical Exam Vitals and nursing note reviewed. Constitutional: General: He is not in acute distress. Appearance: Normal appearance. He is not ill-appearing, toxic-appearing or diaphoretic. HENT: Head: Normocephalic and atraumatic. Right Ear: External ear normal. Left Ear: External ear normal. Nose: Nose normal. No congestion or rhinorrhea. Mouth/Throat: Mouth: Mucous membranes are moist. Pharynx: Oropharynx is clear. No oropharyngeal exudate or posterior oropharyngeal erythema. Eyes: General: Right eye: No discharge. Left eye: No discharge. Extraocular Movements: Extraocular movements intact. Conjunctiva/sclera: Conjunctivae normal. Pupils: Pupils are equal, round, and reactive to light. Cardiovascular: Rate and Rhythm: Normal rate and regular rhythm. Pulses: Normal pulses. Heart sounds: Normal heart sounds. No murmur heard. No friction rub. No gallop. Pulmonary: Effort: Pulmonary effort is normal. No respiratory distress. Breath sounds: Normal breath sounds. No stridor. No wheezing, rhonchi or rales. Chest: Chest wall: No tenderness. Abdominal: General: Abdomen is flat. There is no distension. Palpations: Abdomen is soft. There is no mass. Tenderness: There is no abdominal tenderness. There is no guarding or rebound. Hernia: No hernia is present. Musculoskeletal: Genera (more content not included)...[facility]12-16-2024 History of Present illness Narrative* Penny Soto APRN.[facility] - 09/29/2024 4:49 PM EST This note was created using NoteWriter. Subjective Laura Stephens is a 54 year old male. 54 year old male with PMH gout presents for elbow complaints. Acute onset of symptoms was 2 to 3 days ago Left elbow +redness +swelling +reduced and limited ROM Denies known trauma or injury Denies prior history of same The history is provided by the patient. No geotechnical laboratory technician was used. Musculoskeletal Problem This is a new problem. The current episode started in the past 7 days. The problem occurs constantly. The problem has been gradually worsening. Associated symptoms include joint swelling. Pertinent negatives include no abdominal pain, anorexia, arthralgias, change in bowel habit, chest pain, chills, congestion, coughing, diaphoresis, fatigue, fever, headaches, myalgias, nausea, neck pain, numbness, rash, sore throat, swollen glands, urinary symptoms, vertigo, visual change, vomiting or weakness. Nothing aggravates the symptoms. He has tried nothing for the symptoms. The treatment provided no relief. History reviewed. No pertinent past medical history. PAST SURGICAL HISTORY Procedure Laterality Date NONE ALLERGIES Patient has no known allergies. MEDICATIONS sertraline (ZOLOFT) 100 mg tablet take 1 and ONE-HALF tablets BY MOUTH ONCE DAILY acetaminophen (TYLENOL) 325 mg tablet Take 650 mg by mouth every 4 hours as needed. aspirin 81 mg chewable tablet Take 1 tablet by mouth once daily. atorvastatin (LIPITOR) 80 mg tablet metoprolol tartrate, short acting, (LOPRESSOR) 25 mg tablet predniSONE (DELTASONE) 10 mg tablet Take 4 tabs daily for 3 days, then 2 tabs daily for 3 days, then 1 tab daily for 3 days with food. (Patient not taking: Reported on 09/29/2024) clopidogrel (PLAVIX) 75 mg tablet (Patient not taking: Reported on 07/15/2024) melatonin 3 mg tablet Take 6 mg by mouth. (Patient not taking: Reported on 07/15/2024) hydrocortisone (ANUSOL-HC) 25 mg RECTAL suppository 1 Suppository by RECTAL route twice daily as needed (hemorrhoids/rectal pain). (Patient not taking: Reported on 05/01/2023) psyllium Husk 0.52 g ORAL capsule Take 1 capsule by mouth once daily. (Patient not taking: Reportedon 05/01/2023) FAMILY HISTORY Problem Relation Age of Onset Hypertension Mother Prostate Cancer Father 64 Diabetes Maternal Grandmother Heart Maternal Grandfather Social History Tobacco Use Smoking status: Every Day Current packs/day: 1.00 Average packs/day: 1 pack/day for 20.0 years (20.0 ttl pk-yrs) Types: Cigarettes Smokeless tobacco: Never Substance Use Topics Alcohol use: Yes Alcohol/week: 40.0 standard drinks of alcohol Types: 40 Cans of Beer (12oz) per week Drug use: No Review of Systems Constitutional: Negative for chills, diaphoresis, fatigue and fever. HENT: Negative for congestion and sore throat. Respiratory: Negative for cough. Cardiovascular: Negative for chest pain. Gastrointestinal: Negative for abdominal pain, anorexia, change in bowel habit, nausea and vomiting. Musculoskeletal: Positive for joint swelling. Negative for arthralgias, myalgias and neck pain. Left elbow pain Skin: Negative for rash. Neurological: Negative for vertigo, weakness, numbness and headaches. Hematological: Negative for adenopathy. Does not bruise/bleed easily. Objective BP 124/82 Pulse 97 Temp 36.6 C (97.9 F) (Tympanic) Resp 16 Wt 105.5 kg (232 lb 9.4 oz) SpO2 98% Physical Exam Vitals and nursing note reviewed. Constitutional: General: He is not in acute distress. Appearance: Normal appearance. He is not ill-appearing, toxic-appearing or diaphoretic. HENT: Head: Normocephalic and atraumatic. Right Ear: External ear normal. Left Ear: External ear normal. Nose: Nose normal. No congestion or rhinorrhea. Mouth/Throat: Mouth: Mucous membranes are moist. Pharynx: Oropharynx is clear. No oropharyngeal exudate or posterior oropharyngeal erythema. Eyes: General: Right eye: No discharge. Left eye: No discharge. Extraocular Movements: Extraocular movements intact. Conjunctiva/sclera: Conjunctivae normal. Pupils: Pupils are equal, round, and reactive to light. Cardiovascular: Rate and Rhythm: Normal rate and regular rhythm. Pulses: Normal pulses. Heart sounds: Normal heart sounds. No murmur heard. No friction rub. No gallop. Pulmonary: Effort: Pulmonary effort is normal. No respiratory distress. Breath sounds: Normal breath sounds. No stridor. No wheezing, rhonchi or rales. Chest: Chest wall: No tenderness. Abdominal: General: Abdomen is flat. There is no distension. Palpations: Abdomen is soft. There is no mass. Tenderness: There is no abdominal tenderness. There is no guarding or rebound. Hernia: No hernia is present. Musculoskeletal: General: Swelling and tenderness present. No deformity or signs of injury. Cervical back: Normal range of motion and neck supple. No rigidity or tenderness. Right lower leg: No edema. Left lower leg: No edema. Comments: Left elbow with diffuse erythema +swelling Unable to perform flexion and extension No red streaking No abscess +neuro +sensation Lymphadenopathy: Cervical: No cervical adenopathy. Skin: General: Skin is warm and dry. Capillary Refill: Capillary refill takes less than 2 seconds. Coloration: Skin is not jaundiced or pale. Findings: No bruising, lesion or rash. Neurological: General: No focal deficit present. Mental Status: He is alert and oriented to person, place, and time. Cranial Nerves: No cranial nerve deficit. Sensory: No sensory deficit. Motor: No weakness. Coordination: Coordination normal. Gait: Gait normal. Deep Tendon Reflexes: Reflexes normal. Psychiatric: Mood and Affect: Mood normal. Behavior: Behavior normal. Thought Content: Thought content normal. Assessment and Plan ASSESSMENT/PLAN: 1. Elbow swelling, left - ICD9: 719.02, ICD10: M25.422 X 2 to 3 days No red flags Limited and reduced flexion and extension Cellulitis vs. Septic joint Discussed limitations of express care Referred to ED Penny Soto APRN.CNP [facility] Tele[facility] encounter Note * Telephone Encounter - Penny Soto APRN.CNP - 07/15/2024 3:58 PM EDT Uric acid returns with level of 10.3 CMP returns with blood sugar of 108 Discussed etiology and sx management related to gout. Avoid trigger foods F/U with PCP [facility]-2024 Miscellaneous Notes* Telephone Encounter - Penny Soto APRN.CNP - 07/15/2024 3:58 PM EDT Uric acid returns with level of 10.3 CMP returns with blood sugar of 108 Discussed etiology and sx management related to gout. Avoid trigger foods F/U with PCP * Telephone Encounter - Penny Soto APRN.CNP - 07/15/2024 2:45 PM EDT CBC normal [facility] Telephone encounter Note * Telephone Encounter - Penny Soto APRN.CNP - 07/15/2024 2:45 PM EDT CBC normal [facility] History of Present illness Narrative* Trevor Mckay RT(R) - 07/15/2024 1:50 PM EDT Radiology Service Progress Note PATIENT NAME: Laura Stephens DATE OF SERVICE: July 15, 2024 TIME: 2:03 PM PATIENT IDENTITY VERIFICATION COMPLETED USING TWO (2) IDENTIFIERS: Name and Date of confirmedby patient verbally. FALL SCREENING: Has the patient had 2 falls in the last year or 1 fall with injury or currently using an Ambulatory Assistive Device (Walker, Cane, Wheelchair, Crutches, etc.)? No PATIENT GENDER DATA: Male PATIENT RELEVANT IMPLANT DATA REVIEWED: Yes PATIENT PRESENTS WITH AN IMPLANTABLE OR ATTACHED SENIOR CYBER INTELLIGENCE ANALYST: No RADIOLOGY DEPARTMENT: General X-ray: Exam(s) Completed: Lower Extremity X- Ray(s): Foot, Left PERIPHERAL IV DATA: Not applicable SIGNED BY: RT Jeramy(Eliel) July 15, 2024 2:03 PM [facility] NoteHNO ID: [id number] Author: TREVOR MCKAY RT(Eliel) Service: ? Author Type: Capper Machine Operator Type: Progress Notes Filed: 07/15/2024 14:03 Note Text: Radiology Service Progress Note PATIENT NAME: Laura Stephens DATE OF SERVICE: July 15, 2024 TIME: 2:03 PM PATIENT IDENTITY VERIFICATION COMPLETED USING TWO (2) IDENTIFIERS: Name and Date of confirmed by patient verbally. FALL SCREENING: Has the patient had 2 falls in the last year or 1 fall with injury or currently using an Ambulatory Assistive Device (Walker, Cane, Wheelchair, Crutches, etc.)? No PATIENT GENDER DATA: Male PATIENT RELEVANT IMPLANT DATA REVIEWED: Yes PATIENT PRESENTS WITH AN IMPLANTABLE OR ATTACHED SENIOR CYBER INTELLIGENCE ANALYST: No RADIOLOGY DEPARTMENT: General X-ray: Exam(s) Completed: Lower Extremity X-Ray(s): Foot, Left PERIPHERAL IV DATA: Not applicable SIGNED BY: RT Jeramy(R) July 15, 2024 2:03 [facility]10-01-2024 NoteHNO ID: [id number] Author: PENNY SOTO APRN.REVERSE ENGINEER Service: ? Author Type: Nurse Practitioner Type: Progress Notes Filed: 07/15/2024 14:32 Note Text: This note was created using SproutBoxriter. Subjective Laura Stephens is a 54 year old male. 54 year old male with PMH CAD, CABG, HTN presents for foot pain. Acute onset 3 days ago Left foot, lateral aspect Sharp Only pain with weight bearing. States he has no pain at rest. Denies skin rash or lesions. Denies erythema Denies numbness or tingling Denies weakness Denies known trauma or injury Endorses that he was working in garage, moving stuff and cleaning up Has had similar occurrence in past, citing about a year ago Endorses bilateral feet at that time States he was provided a steroid I don't remember what they said it was The history is provided by the patient. No geotechnical laboratory technician was used. Pain (foot) Pain location: left lateral foot. This is a new problem. The current episode started in the past 7 days. There has been no history of extremity trauma. The problem occurs constantly. The problem has been unchanged. The quality of the pain is described as sharp. The pain is at a severity of 5/10. The pain is moderate. Pertinent negatives include no fever, inability to bear weight, itching, joint locking, joint swelling, limited range of motion, numbness, stiffness or tingling. The symptoms are aggravated by standing. He has tried nothing for the symptoms. The treatment provided no relief. Family history does not include gout or rheumatoid arthritis. There is no history of diabetes, gout,osteoarthritis or rheumatoid arthritis. History reviewed. No pertinent past medical history. PAST SURGICAL HISTORY Procedure Laterality Date NONE ALLERGIES Patient has no known allergies. MEDICATIONS sertraline (ZOLOFT) 100 mg tablet take 1 and ONE-HALF tablets BY MOUTH ONCE DAILY acetaminophen (TYLENOL) 325 mg tablet Take 650 mg by mouth every 4 hours as needed. aspirin 81 mg chewable tablet Take 1 tablet by mouth once daily. atorvastatin (LIPITOR) 80 mg tablet metoprolol tartrate, short acting, (LOPRESSOR) 25 mg tablet clopidogrel (PLAVIX) 75 mg tablet (Patient not taking: Reported on 07/15/2024) melatonin 3 mg tablet Take 6 mg by mouth. (Patient not taking: Reported on 07/15/2024) hydrocortisone (ANUSOL-HC) 25 mg RECTAL suppository 1 Suppository by RECTAL route twice daily as needed (hemorrhoids/rectal pain). (Patient not taking: Reported on 05/01/2023) psyllium Husk 0.52 g ORAL capsule Take 1 capsule by mouth once daily. (Patient not taking: Reported on 05/01/2023) FAMILY HISTORY Problem Relation Age of Onset Hypertension Mother Prostate Cancer Father 64 Diabetes Maternal Grandmother Heart Maternal Grandfather Social History Tobacco Use Smoking status: Every Day Current packs/day: 1.00 Average packs/day: 1 pack/day for 20.0 years (20.0 ttl pk-yrs) Types: Cigarettes Smokeless tobacco: Never Substance Use Topics Alcohol use: Yes Alcohol/week: 40.0 standard drinks of alcohol Types: 40 Cans of Beer (12oz) per week Drug use: No Review of Systems Constitutional: Negative for chills and fever. Respiratory: Negative for apnea, choking and chest tightness. Cardiovascular: Negative for chest pain and leg swelling. Gastrointestinal: Negative for abdominal pain, diarrhea, nausea and vomiting. Musculoskeletal: Negative for arthralgias, back pain, gait problem, gout and stiffness. Left foot pain Skin: Negative for color change, itching, pallor and rash. Neurological: Negative for tingling and numbness. Hematological: Negative for adenopathy. Does not bruise/bleed easily. Psychiatric/Behavioral: Negative for agitation and behavioral problems. Objective BP 112/78 Pulse 82 Temp 36.7 ?C (98 ?F) (Tympanic) Resp 16 Wt 101.9 kg (224 lb 10.4 oz) SpO2 98% Physical Exam Vitals and nursing note reviewed. Constitutional: General: He is not in acute distress. Appearance: Normal appearance. He is not ill-appearing, toxic-appearing or diaphoretic. HENT: Head: Normocephalic and atraumatic. Right Ear: External ear normal. Left Ear: External ear normal. Nose: Nose normal. No congestion or rhinorrhea. Mouth/Throat: Mouth: Mucous membranes are moist. Pharynx: Oropharynx is clear. No oropharyngeal exudate or posterior oropharyngeal erythema. Eyes: General: Right eye: No discharge. Left eye: No discharge. Extraocular Movements: Extraocular movements intact. Conjunctiva/sclera: Conjunctivae normal. Pupils: Pupils are equal, round, and reactive to light. Cardiovascular: Rate and Rhythm: Normal rate and regular rhythm. Pulses: Normal pulses. Heart sounds: Normal heart sounds. No murmur heard. No friction rub. No gallop. Pulmonary: Effort: Pulmonary effort is normal. No respiratory distress. Breath sounds: Normal breath sounds. No stridor. No wheezing, rhonchi or ra (more content not included)...[facility]10-01-2024 History of Present illness Narrative* Penny Soto APRN.[facility] - 07/15/2024 1:34 PM EDT This note was created using [employer]outBox[employer]. Subjective Laura Stephens is a 54 year old male. 54 year old male with PMH CAD, CABG, HTN presents for foot pain. Acute onset 3 days ago Left foot, lateral aspect Sharp Only pain with weight bearing. States he has no pain at rest. Denies skin rash or lesions. Denies erythema Denies numbness or tingling Denies weakness Denies known trauma or injury Endorses that he was working in garage, moving stuff and cleaning up Has had similar occurrence in past, citing about a year ago Endorses bilateral feet at that time States he was provided a steroid I don't remember what they said it was The history is provided by the patient. No geotechnical laboratory technician was used. Pain (foot) Pain location: left lateral foot. This is a new problem. The current episode started in the past 7 days. There has been no history of extremity trauma. The problem occurs constantly. The problem has been unchanged. The quality of the pain is described as sharp. The pain is at a severity of 5/10. The pain is moderate. Pertinent negatives include no fever, inability to bear weight, itching, joint locking, joint swelling, limited range of motion, numbness, stiffness or tingling. The symptoms are aggravated by standing. He has tried nothing for the symptoms. The treatment provided no relief. Family history does not include gout or rheumatoid arthritis. There is no history of diabetes, gout, osteoarthritis or rheumatoid arthritis. History reviewed. No pertinent past medical history. PAST SURGICAL HISTORY Procedure Laterality Date NONE ALLERGIES Patient has no known allergies. MEDICATIONS sertraline (ZOLOFT) 100 mg tablet take 1 and ONE-HALF tablets BY MOUTH ONCE DAILY acetaminophen (TYLENOL) 325 mg tablet Take 650 mg by mouth every 4 hours as needed. aspirin 81 mg chewable tablet Take 1 tablet by mouth once daily. atorvastatin (LIPITOR) 80 mg tablet metoprolol tartrate, short acting, (LOPRESSOR) 25 mg tablet clopidogrel (PLAVIX) 75 mg tablet (Patient not taking: Reported on 07/15/2024) melatonin 3 mg tablet Take 6 mg by mouth. (Patient not taking: Reported on 07/15/2024) hydrocortisone (ANUSOL-HC) 25 mg RECTAL suppository 1 Suppository by RECTAL route twice daily as needed (hemorrhoids/rectal pain). (Patient not taking: Reported on 05/01/2023) psyllium Husk 0.52 g ORAL capsule Take 1 capsule by mouth once daily. (Patient not taking: Reportedon 05/01/2023) FAMILY HISTORY Problem Relation Age of Onset Hypertension Mother Prostate Cancer Father 64 Diabetes Maternal Grandmother Heart Maternal Grandfather Social History Tobacco Use Smoking status: Every Day Current packs/day: 1.00 Average packs/day: 1 pack/day for 20.0 years (20.0 ttl pk-yrs) Types: Cigarettes Smokeless tobacco: Never Substance Use Topics Alcohol use: Yes Alcohol/week: 40.0 standard drinks of alcohol Types: 40 Cans of Beer (12oz) per week Drug use: No Review of Systems Constitutional: Negative for chills and fever. Respiratory: Negative for apnea, choking and chest tightness. Cardiovascular: Negative for chest pain and leg swelling. Gastrointestinal: Negative for abdominal pain, diarrhea, nausea and vomiting. Musculoskeletal: Negative for arthralgias, back pain, gait problem, gout and stiffness. Left foot pain Skin: Negative for color change, itching, pallor and rash. Neurological: Negative for tingling and numbness. Hematological: Negative for adenopathy. Does not bruise/bleed easily. Psychiatric/Behavioral: Negative for agitation and behavioral problems. Objective BP 112/78 Pulse 82 Temp 36.7 C (98 F) (Tympanic) Resp 16 Wt 101.9 kg (224 lb 10.4 oz) SpO2 98% Physical Exam Vitals and nursing note reviewed. Constitutional: General: He is not in acute distress. Appearance: Normal appearance. He is not ill-appearing, toxic-appearing or diaphoretic. HENT: Head: Normocephalic and atraumatic. Right Ear: External ear normal. Left Ear: External ear normal. Nose: Nose normal. No congestion or rhinorrhea. Mouth/Throat: Mouth: Mucous membranes are moist. Pharynx: Oropharynx is clear. No oropharyngeal exudate or posterior oropharyngeal erythema. Eyes: General: Right eye: No discharge. Left eye: No discharge. Extraocular Movements: Extraocular movements intact. Conjunctiva/sclera: Conjunctivae normal. Pupils: Pupils are equal, round, and reactive to light. Cardiovascular: Rate and Rhythm: Normal rate and regular rhythm. Pulses: Normal pulses. Heart sounds: Normal heart sounds. No murmur heard. No friction rub. No gallop. Pulmonary: Effort: Pulmonary effort is normal. No respiratory distress. Breath sounds: Normal breath sounds. No stridor. No wheezing, rhonchi or rales. Chest: Chest wall: No tenderness. Abdominal: General: Abdomen is flat. There is no distension. Palpations: Abdomen is soft. There is no mass. Tenderness: There is no abdominal tenderness. There is no guarding or rebound. Hernia: No hernia is present. Musculoskeletal: General: Swelling and tenderness present. No deformity or signs of injury. Normal range of motion. Cervical back: Normal range of motion and neck supple. No rigidity or tenderness. Right lower leg: No edema. Left lower leg: No edema. Comments: Left lateral foot with mild swelling over 4th and 5th metatarsal No erythema. No ecchymosis. No TTP No red streaking. DP + 2 B/L Lymphadenopathy: Cervical: No cervical adenopathy. Skin: General: Skin is warm and dry. Capillary Refill: Capillary refill takes less than 2 seconds. Coloration: Skin is not jaundiced or pale. Findings: No bruising, lesion or rash. Neurological: General: No focal deficit present. Mental Status: He is alert and oriented to person, place, and time. Cranial Nerves: No cranial nerve deficit. Sensory: No sensory deficit. Motor: No weakness. Coordination: Coordination normal. Gait: Gait normal. Deep Tendon Reflexes: Reflexes normal. Psychiatric: Mood and Affect: Mood normal. Behavior: Behavior normal. Thought Content: Thought content normal. Assessment and Plan ASSESSMENT/PLAN: 1. Foot pain, left - ICD9: 729.5, ICD10: M79.672 X 3 days No trauma or injury Mild swelling lateral aspect, but otherwise unremarkable States history of same a year ago Sprain vs. Fracture vs OA vs. Gout - XR FOOT GENERAL 3V AP/LAT/OBL LEFT-negative for acute process - URIC ACID - COMPLETE BLOOD COUNT AND DIFFERENTIAL - COMPREHENSIVE METABOLIC PANEL Will obtain lab work today and will reach out with results. Penny Soto APRN.REVERSE ENGINEER documented [facility] History of Present illness Narrative* Liss Espinoza RT(R) - 05/01/2023 1:20 PM EDT Radiology Service Progress Note PATIENT NAME: Laura Stephens DATE OF SERVICE: May 01, 2023 TIME: 1:08 PM PATIENT IDENTITY VERIFICATION COMPLETED USING TWO (2) IDENTIFIERS: Name and Date of confirmedby patient verbally. FALL SCREENING: Has the patient had 2 falls in the last year or 1 fall with injury or currently using an Ambulatory Assistive Device (Walker, Cane, Wheelchair, Crutches, etc.)? No PATIENT GENDER DATA: Male PATIENT RELEVANT IMPLANT DATA REVIEWED: Yes RADIOLOGY DEPARTMENT: General X-ray: Exam(s) Completed: Lower Extremity X- Ray(s): Ankle, Right and Wt. Bearing PERIPHERAL IV DATA: Not applicable SIGNED BY: RT Erich(Eliel) May 01, 2023 1:08 PM documented in this encounterSelect [facility] History of Present illness Narrative* Patel Marcus APRN.CNP - 05/01/2023 12:51 PM EDT Subjective HPI HPI Laura Stephens is a 53 year old male who presents today for CC of right ankle pain/swelling. This started 1 week ago. Has tried otc medication for relief. Symptoms are worsened by rom/walking. Denies history of surgery or injury to right ankle/foot. Denies numbness and tingling of right ankle/foot. .Patient presents with: Ankle Pain: right swelling and bruising x 1 week No past medical history on file. PAST SURGICAL HISTORY Procedure Laterality Date NONE ALLERGIES Patient has no known allergies. MEDICATIONS acetaminophen (TYLENOL) 325 mg tablet Take 650 mg by mouth every 4 hours as needed. aspirin 81 mg chewable tablet Take 1 tablet by mouth once daily. melatonin 3 mg tablet Take 6 mg by mouth. atorvastatin (LIPITOR) 80 mg tablet clopidogrel (PLAVIX) 75 mg tablet metoprolol tartrate, short acting, (LOPRESSOR) 25 mg tablet hydrocortisone (ANUSOL-HC) 25 mg RECTAL suppository 1 Suppository by RECTAL route twice daily as needed (hemorrhoids/rectal pain). (Patient not taking: Reported on 05/01/2023) psyllium Husk 0.52 g ORAL capsule Take 1 capsule by mouth once daily. (Patient not taking: Reportedon 05/01/2023) FAMILY HISTORY Problem Relation Age of Onset Hypertension Mother Prostate Cancer Father 64 Diabetes Maternal Grandmother Heart Maternal Grandfather Social History Tobacco Use Smoking status: Every Day Packs/day: 1.00 Years: 20.00 Total pack years: 20.00 Types: Cigarettes Smokeless tobacco: Never Substance Use Topics Alcohol use: Yes Alcohol/week: 100.0 standard drinks of alcohol Types: 40 Cans of Beer (12oz) per week Drug use: No ROS Objective Blood pressure 122/74, pulse 84, temperature 36.3 C (97.4 F), resp. rate 16, weight 90.3 kg (199 lb), SpO2 98 %. Physical Exam Constitutional: General: He is not in acute distress. Appearance: He is not toxic-appearing or diaphoretic. HENT: Head: Normocephalic and atraumatic. Cardiovascular: Pulses: Popliteal pulses are 2+ on the right side. Dorsalis pedis pulses are 2+ on the right side. Pulmonary: Effort: Pulmonary effort is normal. No accessory muscle usage or respiratory distress. Musculoskeletal: Right ankle: Swelling present. No deformity, ecchymosis or lacerations. Tenderness present over thelateral malleolus. Decreased range of motion. Comments: Distal sensation intact. Distal cap refill <3 seconds. Neurological: Mental Status: He is alert and oriented to person, place, and time. ASSESSMENT/PLAN: 1. Acute right ankle pain - ICD9: 719.47, 338.19, ICD10: M25.571 -no bony abnormality noted on xray -Rest, Ice, Compression, Elevation discussed -follow up with primary care if symptoms persist/worsen in 10-14 days - XR ANKLE GENERAL 3V AP/LAT/OBL RIGHT IMPRESSION: No radiographic evidence of acute osseous abnormality Dictated by : PIERRE GOMES MD - PREDNISONE 10 MG TABLET Patel Marcus APRN.REVERSE ENGINEER documented in this encounterSelect [facility] Procedure [facility]06-16-2023 Procedure [facility]02-04-2023 Miscellaneous Notes* Nursing Notes - Yesenia Hobbs RN - 11/18/2022 10:03 AM EST pt discharged home at this time per physician orders; AVS/Rx reviewed at length with pt and pt's at bedside, all of whom verbalize full understanding of discharge instructions; all IV's removed and hemostasis established; all belongings with pt upon discharge; all questions answered/addressed;pt denies any needs or concerns at this time; pt's to drive pt home; pt taken to lobby via wheelchair and no s/sx of acute distress noted upon discharge. * Plan of Care - Yesenia Hobbs RN - 11/18/2022 10:03 AM EST Problem: Patient Care Overview Goal: Plan of Care Review Outcome: Adequate for Discharge Goal: Individualization & Mutuality Outcome: Adequate for Discharge Goal: Discharge Needs Assessment Outcome: Adequate for Discharge Goal: Interdisciplinary Rounds/Family Conf Outcome: Adequate for Discharge Problem: Fall/Trauma/Injury Risk (Adult) Goal: Fall/Trauma/Injury Risk: Absence of Trauma/Injury/Falls Description: Patient will demonstrate the desired outcomes. Outcome: Adequate for Discharge Goal: Knowledge of risk factors/behavior modification Description: Knowledge of risk factors/behavior modification for fall/injury prevention Outcome: Adequate for Discharge Problem: CABG/Valve (Adult) Goal: Signs and Symptoms of Listed Potential Problems Will be Absent or Manageable Description: Signs and symptoms of listed potential problems will be absent or manageable by discharge/transition of care. Outcome: Adequate for Discharge Goal: Stable Weight Description: Patient will demonstrate the desired outcomes by discharge/transition of care. Outcome: Adequate for Discharge Problem: Ventilation, Mechanical Invasive (Adult) Goal: Signs and Symptoms of Listed Potential Problems Will be Absent, Minimized or Managed (Ventilation, Mechanical Invasive) Description: Signs and symptoms of listed potential problems will be absent, minimized or managed by discharge/transition of care (reference Ventilation, Mechanical Invasive (Adult) CPG). Outcome: Adequate for Discharge * Plan of Care - GIOVANNY Mendiola - 11/17/2022 2:21 PM EST Nutrition Plan of Care: 1. Continue current diet order. 2. Will provide a supplement Glucerna (220 kcal, 10 g PRO each) once daily with Lunch . 3. Monitor for significant weight changes. 4. Monitor and encourage po intakes with goal of average po being 75-100%. 5. exercise equipment repair technician to follow. * Plan of Care - Rafaela Ramirez RN - 11/17/2022 1:42 AM EST Problem: Patient Care Overview Goal: Plan of Care Review Outcome: Ongoing Goal: Individualization & Mutuality Outcome: Ongoing Goal: Discharge Needs Assessment Outcome: Ongoing Goal: Interdisciplinary Rounds/Family Conf Outcome: Ongoing Problem: Fall/Trauma/Injury Risk (Adult) Goal: Fall/Trauma/Injury Risk: Absence of Trauma/Injury/Falls Description: Patient will demonstrate the desired outcomes. Outcome: Ongoing Goal: Knowledge of risk factors/behavior modification Description: Knowledge of risk factors/behavior modification for fall/injury prevention Outcome: Ongoing Problem: CABG/Valve (Adult) Goal: Signs and Symptoms of Listed Potential Problems Will be Absent or Manageable Description: Signs and symptoms of listed potential problems will be absent or manageable by discharge/transition of care. Outcome: Ongoing Goal: Stable Weight Description: Patient will demonstrate the desired outcomes by discharge/transition of care. Outcome: Ongoing Problem: Ventilation, Mechanical Invasive (Adult) Goal: Signs and Symptoms of Listed Potential Problems Will be Absent, Minimized or Managed (Ventilation, Mechanical Invasive) Description: Signs and symptoms of listed potential problems will be absent, minimized or managed by discharge/transition of care (reference Ventilation, Mechanical Invasive (Adult) CPG). Outcome: Ongoing * Plan of Care - Hilary East OT - 11/16/2022 11:47 AM EST Problem: OT - Transfers Goal: Transfers Toilet/Bedside Commode Description: Pt will transfer to/from toilet/BSC with modified independence for improved ability tosafely complete ADLs. Outcome: Ongoing Problem: OT - Dressing Goal: Lower Body Dressing Description: Pt will complete LE dressing tasks with modified independence for improved ability to complete self-care activities. Outcome: Progressing Toward Goal Problem: OT - ADLs Goal: Toileting Description: Pt will complete toileting task including clothing management with modified independence for improved ability to safely complete self-care activities. Outcome: Progressing Toward Goal Goal: Bathing Description: Pt will perform full body bathing routine with modified independence for improved ability to complete self-care activities. Outcome: Progressing Toward Goal Problem: OT - Balance Goal: Balance - Standing Description: Pt will perform 5 minutes of functional ADL task in standing with modified independence and good balance to promote safety and improved balance required for self-care activities. Outcome: Progressing Toward Goal Problem: OT - Other Goal: Precaution Adherence Description: Pt will demonstrate 100% adherence to sternal precautions during all ADLs and transfers to promote safety during daily routine. Outcome: Progressing Toward Goal * Nursing Notes - Celi Del Real RN - 11/16/2022 8:55 AM EST Procedure: Chest Tube Removal Note Mediastinal number: #2 & #3 Pleural: bilateral Pre-Procedure Assessment Order present: yes Pre-procedure site assessment: Appearance: pink Drainage amount: CT 1 had 130cc out over last 24 hrs, CT 2 had 100cc out over last 24 hrs, CT 4 lhu44ul out over last 24 hrs Other: Pre-procedure respiratory assessment: patient without mechanical ventilation, without respiratory distress Post-Procedure Assessment Post-procedure respiratory assessment: patient without mechanical ventilation, without respiratory distress Application of sterile occlusive dressing: yes Patient tolerated procedure: yes Chest X-ray order (if indicated): yes Notes: Patient tolerated removal well. Patient instructed to call RN with any SOB, chest pain, or other symptoms. All questions answered. Celi Del Real RN * Plan of Care - Jarocho Candelario PT - 11/16/2022 8:47 AM EST Problem: PT - Mobility Goal: Ambulation Description: Pt will ambulate 250 feet with least restrictive device with modified independence to improve ability to navigate home environment. Outcome: Ongoing Goal: Stairs Description: Pt will ascend/descend 1 stairs with railings with standby assistance with least restrictive device to improve ability to perform functional mobility necessary in recommended discharge environment. Outcome: Ongoing Problem: PT - Transfers Goal: Supine <-> Sit Description: Pt will perform bed mobility with flat bed & no rail with modified independence inorder to improve functional mobility and safety. Outcome: Ongoing Goal: Sit <-> Stand Description: Pt will perform sit to/from stand transfers with modified independence with least restrictive device in order to improve functional mobility and safety. Outcome: Ongoing Goal: Other Description: Pt will maintain sternal precautions 100% of the time during functional mobility and ambulation without need for cues. Outcome: Ongoing * Plan of Care - Rafaela Ramirez RN - 11/16/2022 2:40 AM EST Problem: Patient Care Overview Goal: Plan of Care Review Outcome: Ongoing Goal: Individualization & Mutuality Outcome: Ongoing Goal: Discharge Needs Assessment Outcome: Ongoing Goal: Interdisciplinary Rounds/Family Conf Outcome: Ongoing Problem: Fall/Trauma/Injury Risk (Adult) Goal: Fall/Trauma/Injury Risk: Absence of Trauma/Injury/Falls Description: Patient will demonstrate the desired outcomes. Outcome: Ongoing Goal: Knowledge of risk factors/behavior modification Description: Knowledge of risk factors/behavior modification for fall/injury prevention Outcome: Ongoing Problem: CABG/Valve (Adult) Goal: Signs and Symptoms of Listed Potential Problems Will be Absent or Manageable Description: Signs and symptoms of listed potential problems will be absent or manageable by discharge/transition of care. Outcome: Ongoing Goal: Stable Weight Description: Patient will demonstrate the desired outcomes by discharge/transition of care. Outcome: Ongoing Problem: Ventilation, Mechanical Invasive (Adult) Goal: Signs and Symptoms of Listed Potential Problems Will be Absent, Minimized or Managed (Ventilation, Mechanical Invasive) Description: Signs and symptoms of listed potential problems will be absent, minimized or managed by discharge/transition of care (reference Ventilation, Mechanical Invasive (Adult) CPG). Outcome: Ongoing * Nursing Notes - Bryanna Wallace RN - 11/15/2022 3:02 PM EST Pleural chest tubes split to separate pleurvacs. Verified by Communication Order For Nursing Careplaced at 07:04. Chest tubes placed to H2O seal per verbal order from VALORIE Akers. Pt stable. * Plan of Care - Gary Gimenez PT - 11/15/2022 11:00 AM EST Problem: PT - Mobility Goal: Ambulation Description: Pt will ambulate 250 feet with least restrictive device with modified independence to improve ability to navigate home environment. Outcome: Ongoing Problem: PT - Transfers Goal: Supine <-> Sit Description: Pt will perform bed mobility with flat bed & no rail with modified independence inorder to improve functional mobility and safety. Outcome: Ongoing Goal: Sit <-> Stand Description: Pt will perform sit to/from stand transfers with modified independence with least restrictive device in order to improve functional mobility and safety. Outcome: Ongoing Goal: Other Description: Pt will maintain sternal precautions 100% of the time during functional mobility and ambulation without need for cues. Outcome: Ongoing * Nursing Notes - Theodore Leonardo RN - 11/14/2022 2:14 PM EST Fellow at beside d/t pt complaining of persistent chest pain and feeling of something moving in mychest... patient also complains of headache and abdominal pain. RN completed EKG, labs (no replacement needed), and pain meds given. Fellow to order gas-x, indefinitely and KUB if pain increases. * Plan of Care - Josselyn Gamble OT - 11/14/2022 11:15 AM EST Problem: OT - Dressing Goal: Lower Body Dressing Description: Pt will complete LE dressing tasks with modified independence for improved ability to complete self-care activities. Outcome: Ongoing Problem: OT - ADLs Goal: Toileting Description: Pt will complete toileting task including clothing management with modified independence for improved ability to safely complete self-care activities. Outcome: Ongoing Goal: Bathing Description: Pt will perform full body bathing routine with modified independence for improved ability to complete self-care activities. Outcome: Ongoing Problem: OT - Balance Goal: Balance - Standing Description: Pt will perform 5 minutes of functional ADL task in standing with modified independence and good balance to promote safety and improved balance required for self-care activities. Outcome: Ongoing Problem: OT - Transfers Goal: Transfers Toilet/Bedside Commode Description: Pt will transfer to/from toilet/BSC with modified independence for improved ability tosafely complete ADLs. Outcome: Ongoing Problem: OT - Other Goal: Precaution Adherence Description: Pt will demonstrate 100% adherence to sternal precautions during all ADLs and transfers to promote safety during daily routine. Outcome: Ongoing * Plan of Care - Comfort Gunn, PT - 11/14/2022 7:55 AM EST Problem: PT - Mobility Goal: Ambulation Description: Pt will ambulate 250 feet with least restrictive device with modified independence to improve ability to navigate home environment. Outcome: Ongoing Goal: Stairs Description: Pt will ascend/descend 1 stairs with railings with standby assistance with least restrictive device to improve ability to perform functional mobility necessary in recommended discharge environment. Outcome: Ongoing Problem: PT - Transfers Goal: Supine <-> Sit Description: Pt will perform bed mobility with flat bed & no rail with modified independence inorder to improve functional mobility and safety. Outcome: Ongoing Goal: Sit <-> Stand Description: Pt will perform sit to/from stand transfers with modified independence with least restrictive device in order to improve functional mobility and safety. Outcome: Ongoing Goal: Other Description: Pt will maintain sternal precautions 100% of the time during functional mobility and ambulation without need for cues. Outcome: Ongoing * Plan of Care - Leeroy Bocanegra RN - 11/14/2022 5:22 AM EST Problem: Ventilation, Mechanical Invasive (Adult) Goal: Signs and Symptoms of Listed Potential Problems Will be Absent, Minimized or Managed (Ventilation, Mechanical Invasive) Description: Signs and symptoms of listed potential problems will be absent, minimized or managed by discharge/transition of care (reference Ventilation, Mechanical Invasive (Adult) CPG). Outcome: Met This Shift Problem: Patient Care Overview Goal: Plan of Care Review Outcome: Ongoing Goal: Individualization & Mutuality Outcome: Ongoing Goal: Discharge Needs Assessment Outcome: Ongoing Goal: Interdisciplinary Rounds/Family Conf Outcome: Ongoing Problem: Fall/Trauma/Injury Risk (Adult) Goal: Fall/Trauma/Injury Risk: Absence of Trauma/Injury/Falls Description: Patient will demonstrate the desired outcomes. Outcome: Ongoing Goal: Knowledge of risk factors/behavior modification Description: Knowledge of risk factors/behavior modification for fall/injury prevention Outcome: Ongoing Problem: CABG/Valve (Adult) Goal: Signs and Symptoms of Listed Potential Problems Will be Absent or Manageable Description: Signs and symptoms of listed potential problems will be absent or manageable by discharge/transition of care. Outcome: Ongoing Goal: Stable Weight Description: Patient will demonstrate the desired outcomes by discharge/transition of care. Outcome: Ongoing * Nursing Notes - Leeroy Bocanegra RN - 11/13/2022 10:51 PM EST 11/13 1939 Patient arrived at bedside from OR. 1944 Patient assessment as charted. 2239 MADDY Nilson aware of most recent ABG and extubation parameters. 11/14 0000 Patient reassessment unchanged except as charted. 0400 Patient reassessment unchanged except as charted. * Brief Op Note - Pallavi Mccabe DO - 11/13/2022 7:10 PM EST Laura Stephens ([id number]) PRE OPERATIVE DIAGNOSIS CAD (coronary artery disease) [I25.10] POST OPERATIVE DIAGNOSIS Post-Op Diagnosis Codes: * CAD (coronary artery disease) [I25.10] PROCEDURE PERFORMED Procedure(s) (LRB): CABG W/ ARTERY GRAFT OPEN (Midline) PRIMARY CLOSURE Yes INTRAOPERATIVE FINDINGS Midline sternotomy slightly off midline, plates placed at end of case CABG x2, good flows at end of case SNOWDEN-> LAD Vein-> OM V pacing wires 5 chest tubes -Right Pleural 24F -Mediastinal 24F -Mediastinal 24F -Left Pleural 24F -Subcutaneous amy over sternal plates SURGEON Surgeon(s) and Role: * Derek Jara MD, PhD - Primary ANESTHESIOLOGIST Anesthesiologist: Sofia Alatorre MD; Bianka Mcqueen MD COMMODITY MANAGEMENT SPECIALIST: Nolberto Martinez, APPLICATION SUPPORT CONSULTANT-COMMODITY MANAGEMENT SPECIALIST; Bryanna Ross APPLICATION SUPPORT CONSULTANT-COMMODITY MANAGEMENT SPECIALIST Spectroscopist Assisting: Trevor Alvarenga MD Feeder Loader: Laura Duong; Maximilian Stephenson SURGICAL STAFF Supervisor Major Appliance Assembly: Lalito Dykes RN Physician Laundry Machine Tender: Lety Coello PA-C Registered Nurse Door Repairman: Ankita Vital RN; Hetal Rich RN; YULISA Hdez Relief Supervisor Major Appliance Assembly: Coral Castro RN; Patricia Gallo RN Relief Scrub: Nancy Chavez; Jevon Cardozo Scrub Person: Crista Buck Treatment Nurse: Cecilia Woodall, CHRISTOFER Fellow: Pallavi Mccabe DO Manager Of Manufacturing: Odilon Salter COMPLICATIONS None ESTIMATED BLOOD LOSS Unable to estimate due to CPB SPECIMENS No specimen sent * No specimens in log * Pallavi Mccabe November 13, 2022 7:10 PM * Op Note - Derek Jara MD, PhD - 11/13/2022 12:00 PM EST Operative Report DATE PERFORMED: 11/13/2022 PREOPERATIVE DIAGNOSES: 1. Left main coronary artery stenosis. 2. Non ST-elevation myocardial infarction. POSTOPERATIVE DIAGNOSES: 1. Left main coronary artery stenosis. 2. Non ST-elevation myocardial infarction. PROCEDURES PERFORMED: 1. Endoscopic recovery of left greater saphenous vein. 2. On-pump cardiopulmonary oxygenator. 3. Coronary bypass graft x2 with left internal mammary artery to left anterior descending artery and reverse saphenous vein graft to obtuse marginal branch. 4. Bilateral pectoralis advancement flap. 5. Complex multilayered closure. 6. Sternal plating with Synthes plates x4. SURGEON(S): Derek Jara MD, PhD. FIRST ASSISTANTS: 1. Lidya Mathews MD. 2. YULISA Taylor. 3. Lety Coello PA-C. 4. YULISA Pearce. DESCRIPTION OF PROCEDURE: After discussion in which indications, risks and alternatives were explained, informed consent was obtained, Mr. Stephens was taken to the operating theater where he was placed in supine position. After general endotracheal anesthesia was administered by cardiac anesthesiologist and appropriate preoperative monitoring, his neck, chest, groins, and legs were scrubbed, prepped and draped in sterile fashion.. After pause for patient and procedure identification were performed and completed, and receiving appropriate preoperative antibiotics, median sternotomy was made in a standard fashion. Electrocautery and bone wax were used for hemostasis. Left rolando-sternum was elevated. Left internal mammary artery was mobilized at the origin below the costal margin, electrocautery and Ligaclip being used for hemostasis. Left pleura was entered intentionally. After the mammary was mobilized, systemic dose heparin was given. After this circulated, this portion was transected, spatulated, made hemostatic with a hicks dog occluder. Concurrent to the mammary recovery, the left greater saphenous vein was procured using standard endoscopic techniques after it was mobilized, rest of the body, retrograde cannulated and flushed. Branches were secured with Ligaclip and the suture. At the end of the procedure the leg incisions were closed with multiple layers of absorbable suture and wrapped with sterile Vilma bandage. After the conduit was mobilized regular sternal retractor was introduced. It was appreciated that the right rolando-sternum had a thin run that needed to reinforce with sternal plate at the end to prevent a sternal wound dehiscence from wires. The regular sternal retractor was introduced, sternum was spread. Pericardium was incised to the diaphragm and the innominate vein with lateral extensions via pericardial stay stitches. After appropriate HD, standard aortic and dual-stage venous cannulation was performed as well as ascending aortic root vent. After appropriate HD we initiated cardiopulmonary bypass when full flow was achieved, respirations were ceased. Aortic crossclamp was introduced. Antegrade cardioplegia was given. A prompt arrest was achieved. Myocardial protection was facilitated with topical ice-cold poured saline given to the anterior surface of the heart as well as mild systemic cooling. After cardioplegia was given took our attention to the anterior wall. We identified the obtuse marginal branch #3 which was the larger of the 2 vessels on the epicardial surface very distally and dissected this back near the groove. We opened the right pleura to facilitate exposure. The margin was incised, probed proximally and distally with Robicsek dilator and then reverse saphenous vein graft anastomosed in end-to-side fashion using running 7-0 Prolene suture. Antegrade cardioplegia down the vein demonstrated good flow and hemostasis. Heart was returned to it normal position. Dose of antegrade cardioplegia down the aortic root. the anterior wall. The mid LAD was incised, probed proximally and distally with Robicsek dilator. Proximally, there was moderate atheromatous plaque. The left internal mammary artery was anastomosed in end-to-side fashion using running 7-Kyrgyz suture. Prior to completing anastomosis, toe and heel were probed to ensure patency. We completed anastomosis and checked flow with Miraki flow probe, felt that it was less anticipated. The anastomosis was taken down and redone with good flow with a Miraki flow probe. The hicks occluder was then reapplied. Distally antegrade cardioplegia given down the aortic root. Aortotomy was made, punched to 4 mm in diameter. The vein was anastomosed to respective aortotomy in an inside fashion using running 6-0 Prolene suture. Proximal marking washer placed in head-down position. Aortic cross-clamp was removed with de-airing through the root vent. During reperfusion time, spontaneous rhythm returned. Respirations resumed. Epicardial ventricular pacing wires placed. We weaned from cardiopulmonary bypass. Once off bypass and good hemostasis, we checked flow in the grafts with a Miraki flow probe. We had excellent flow. We had good hemostasis. Venous cannula was removed. After appropriate de-airing the root vent was removed. Protamine sulfate was administered. After cardiotomy blood returned, the aortic cannula was removed as well. The anterior mediastinum was copiously irrigated. Bilateral pleural and two mediastinal chest tubes were placed. Sternum was reapproximated using 6 interrupted sternal wires. We then mobilized bilateral pectoralis advancement flaps and using two Y plates and two X plates reinforced the manubrium due to the thin portion on the right rolando-sternum. The Y plates went out onto the right rib heads bridging the sternum and X plate at the inferior portion. A 24-Kyrgyz Amy drain was placed over these dural plates. We ensured that we had enough mobility. Pectoralis fascia was reapproximated using PDS. Multiple layers of absorbable suture were placed. Prevena dressing was applied and Mr. Stephens was recovered and transferred to the cardiac intensive care unit. Cardiopulmonary bypass time was 128 minutes. Crossclamp time is 118 minutes. Flow in the SNOWDEN LAD was 77 cc/minute with a PI of 1.4 without competitive flow. With competitive flow was 46 cc/minute with a PI of 1.6. Flow in the vein to obtuse marginal branch #3 was 87 cc/minute with a PI of 1.5. Dictated By: Derek Jara MD, PhD Derek Jara MD, PhD ATTENDING BAW/MedShannan JOB: [id number] DOC: [id number] * Plan of Care - Maricruz Bailey RN - 11/12/2022 10:34 AM EST Problem: Patient Care Overview Goal: Plan of Care Review Outcome: Ongoing Goal: Individualization & Mutuality Outcome: Ongoing Goal: Discharge Needs Assessment Outcome: Ongoing Goal: Interdisciplinary Rounds/Family Conf Outcome: Ongoing Problem: Fall/Trauma/Injury Risk (Adult) Goal: Fall/Trauma/Injury Risk: Absence of Trauma/Injury/Falls Description: Patient will demonstrate the desired outcomes. Outcome: Ongoing Goal: Knowledge of risk factors/behavior modification Description: Knowledge of risk factors/behavior modification for fall/injury prevention Outcome: Ongoing * Plan of Care - Maricruz Bailey RN - 11/11/2022 5:16 PM EST Problem: Patient Care Overview Goal: Plan of Care Review 11/11/2022 1716 by Maricruz Bailey RN Outcome: Ongoing 11/11/2022 1716 by Maricruz Bailey RN Outcome: Ongoing Goal: Individualization & Mutuality 11/11/2022 1716 by Maricruz Bailey RN Outcome: Ongoing 11/11/2022 1716 by Maricruz Bailey RN Outcome: Ongoing Goal: Discharge Needs Assessment 11/11/2022 1716 by Maricruz Bailey RN Outcome: Ongoing 11/11/2022 1716 by Maricruz Bailey RN Outcome: Ongoing Goal: Interdisciplinary Rounds/Family Conf 11/11/2022 1716 by Maricruz Bailey RN Outcome: Ongoing 11/11/2022 1716 by Maricruz Bailey RN Outcome: Ongoing Problem: Fall/Trauma/Injury Risk (Adult) Goal: Fall/Trauma/Injury Risk: Absence of Trauma/Injury/Falls Description: Patient will demonstrate the desired outcomes. 11/11/2022 1716 by Maricruz Bailey RN Outcome: Ongoing 11/11/2022 1716 by Maricruz Bailey RN Outcome: Ongoing Goal: Knowledge of risk factors/behavior modification Description: Knowledge of risk factors/behavior modification for fall/injury prevention 11/11/2022 1716 by Maricruz Bailey RN Outcome: Ongoing 11/11/2022 1716 by Maricruz Bailey RN Outcome: Ongoing Problem: CABG/Valve (Adult) Goal: Signs and Symptoms of Listed Potential Problems Will be Absent or Manageable Description: Signs and symptoms of listed potential problems will be absent or manageable by discharge/transition of care. Outcome: Ongoing Goal: Stable Weight Description: Patient will demonstrate the desired outcomes by discharge/transition of care. Outcome: Ongoing * Plan of Care - Sandie Medina RN - 11/11/2022 12:08 AM EST Problem: Patient Care Overview Goal: Plan of Care Review Outcome: Ongoing Goal: Individualization & Mutuality Outcome: Ongoing Goal: Discharge Needs Assessment Outcome: Ongoing Goal: Interdisciplinary Rounds/Family Conf Outcome: Ongoing Problem: Fall/Trauma/Injury Risk (Adult) Goal: Fall/Trauma/Injury Risk: Absence of Trauma/Injury/Falls Description: Patient will demonstrate the desired outcomes. Outcome: Ongoing Goal: Knowledge of risk factors/behavior modification Description: Knowledge of risk factors/behavior modification for fall/injury prevention Outcome: Ongoing Problem: CABG/Valve (Adult) Goal: Signs and Symptoms of Listed Potential Problems Will be Absent or Manageable Description: Signs and symptoms of listed potential problems will be absent or manageable by discharge/transition of care. Outcome: Ongoing Goal: Stable Weight Description: Patient will demonstrate the desired outcomes by discharge/transition of care. Outcome: Ongoing * Plan of Care - Paz Roblero RN - 11/10/2022 4:20 PM EST Problem: Patient Care Overview Goal: Plan of Care Review Outcome: Met This Shift Goal: Individualization & Mutuality Outcome: Met This Shift Goal: Interdisciplinary Rounds/Family Conf Outcome: Met This Shift Problem: Fall/Trauma/Injury Risk (Adult) Goal: Fall/Trauma/Injury Risk: Absence of Trauma/Injury/Falls Description: Patient will demonstrate the desired outcomes. Outcome: Met This Shift Goal: Knowledge of risk factors/behavior modification Description: Knowledge of risk factors/behavior modification for fall/injury prevention Outcome: Met This Shift Problem: Patient Care Overview Goal: Discharge Needs Assessment Outcome: Ongoing Problem: CABG/Valve (Adult) Goal: Signs and Symptoms of Listed Potential Problems Will be Absent or Manageable Description: Signs and symptoms of listed potential problems will be absent or manageable by discharge/transition of care. Outcome: Ongoing Goal: Stable Weight Description: Patient will demonstrate the desired outcomes by discharge/transition of care. Outcome: Ongoing * Plan of Care - Andrewgarcía Lawson, APPLICATION SUPPORT CONSULTANT-REVERSE ENGINEER - 11/10/2022 8:56 AM EST CARDIAC SURGERY CONSULT NOTE Cardiac Surgery Pre-op Enhanced Surgical Recovery Screening Social History: Caregiver: Smoking cessation: patient counseled Nicotine Dependence Use per Day: 1 Patient is ready to quit Quit Date: 11/07 Discussed pharmacotherapy. Offered Rx to be sent to pharmacy of choice. We discussed health risks and resources. Offered referral to [facility] Smoking Cessation clinic (AMB REFERRAL TO SMOKING CESSATION) Spent 3-5 minutes counseling on this topic Alcohol cessation: patient counseled on cessation CSY Modified Fried Frailty Scale Screening Pre-Frail: meets 1-2 of criteria Frail: meets 3 or greater of criteria for PT referral Criteria: (0-1) [0] Unintentional weight loss of 10lb or more in the past year [0] Self-reported exhaustion (more than 3 days per week) [0] Recent fall within last year [0] Requires assistance with ADLS (cooking, cleaning, bathing, toileting, dressing) [0] Low level of activity (sitting or lying quietly for most of the day) [0] Total CSY Mini-Cog Screening Utilized for patients with known memory difficulty [N/A] Total score [0] 0-5 points Referral to Speech Therapy for Communication-Cognition Evaluation: A cut point of <3 on the Mini-Cog has been validated for dementia screening, but many individuals with clinically meaningful cognitive impairment will score higher. When greater sensitivity is desired, a cut point of <4 is recommended as it may indicate a need for further evaluation of cognitive status. CSY MST Nutrition Screening 1. Recent unintentional weight loss? Points 1 2-13lb 2 14-23lb 3 24-33lb 4 34lb or more Unsure -2 2. Have you been eating poorly because or a decreased appetite? Points 0 No 1 Yes MST Result [0] No Risk Score 0 or 1 [0] At Risk Score 2+ Referral to Nutrition [0] BMI: Body mass index is 26.63 kg/m . - Protein-Calorie Malnutrition - (mild 10-17 / moderate 5-9 / severe <5) Lab Results Component Value Date PREALBUMIN 28 11/09/2022 Lab Results Component Value Date ALBUMIN 3.9 11/09/2022 Normal 3.5 - 5.0 Mild 3.0 - 3.4 Moderate 2.1 - 2.9 Severe < 2.1 Hemoglobin A1C HPLC Date Value Ref Range Status 11/09/2022 6.0 (H) 4.7 - 5.6 % Final Refer to Endo or PCP for Hgb >8% Hemoglobin Date Value Ref Range Status 11/10/2022 13.1 (L) 13.4 - 16.8 g/dL Final For Hgb <12 refer to CSY Blood Conservation and Anemia Guideline Consult placed to: smoking cessation referral at discharge (PT/OT/ST) for further evaluation and treatment recommendations. Patient Education Completed. DAWOOD Redmond Cardiac Surgery MADDY * Plan of Care - Paz Roblero RN - 11/09/2022 6:34 PM EST Problem: Patient Care Overview Goal: Plan of Care Review Outcome: Met This Shift Goal: Individualization & Mutuality Outcome: Met This Shift Problem: Fall/Trauma/Injury Risk (Adult) Goal: Fall/Trauma/Injury Risk: Absence of Trauma/Injury/Falls Description: Patient will demonstrate the desired outcomes. Outcome: Met This Shift Problem: Patient Care Overview Goal: Discharge Needs Assessment Outcome: Ongoing Problem: Fall/Trauma/Injury Risk (Adult) Goal: Knowledge of risk factors/behavior modification Description: Knowledge of risk factors/behavior modification for fall/injury prevention Outcome: Ongoing Problem: CABG/Valve (Adult) Goal: Signs and Symptoms of Listed Potential Problems Will be Absent or Manageable Description: Signs and symptoms of listed potential problems will be absent or manageable by discharge/transition of care. Outcome: Ongoing Goal: Stable Weight Description: Patient will demonstrate the desired outcomes by discharge/transition of care. Outcome: Ongoing Problem: Patient Care Overview Goal: Interdisciplinary Rounds/Family Conf Outcome: Met This Shift * Nursing Notes - Sandie Medina RN - 11/09/2022 5:49 AM EST On admission to , from [facility] a dual RN initial assessment of skin condition was performed by Sandie Medina RN and Antonieta Britt. Skin Assessment: No skin abnormalities Dakotah Score: 23 Sandie Medina RN * Plan of Care - Sandie Medina RN - 11/09/2022 1:27 AM EST Problem: Patient Care Overview Goal: Plan of Care Review Outcome: Ongoing Goal: Individualization & Mutuality Outcome: Ongoing Goal: Discharge Needs Assessment Outcome: Ongoing Goal: Interdisciplinary Rounds/Family Conf Outcome: Ongoing * Certification - DAWOOD Queen - 11/09/2022 12:25 AM EST I certify that this patient requires inpatient services at this time. I anticipate the expected length of stay will include at least two midnights. Inpatient services are due to the following medicalconcerns NSTEMI, CABG evaluation. Plans for post hospitalization care will be discharge to home. DAWOOD Morocho Certified Nurse Practitioner Cardiothoracic Surgery [id number] documented in this [facility]02-04-2023 History of Present illness Narrative* DAWOOD Redmond - 11/18/2022 7:48 AM EST Procedure: Chest Tube Removal Note Mediastinal number: 1 Pre-Procedure Assessment Order present: yes Pre-procedure site assessment: Appearance: pink Drainage amount: 45 Other: Pre-procedure respiratory assessment: patient without mechanical ventilation, without respiratory distress Post-Procedure Assessment Post-procedure respiratory assessment: patient without mechanical ventilation, without respiratory distress Application of sterile occlusive dressing: yes Patient tolerated procedure: yes Chest X-ray order (if indicated): n/a Notes: tolerated well DAWOOD Redmond * Rita Sorto RN - 11/17/2022 5:38 PM EST Final Discharge Planning Final Discharge Planning Discharge Disposition: Home Plan Patient/Family In Agreement With Plan: yes Met with patient and his for discharge planning. Patient denies having any discharge home careor DME needs. Family already owns a walker, shower bench, and pbx manager. Mrs. Stephens will drive her home from the hospital and care for him as he recovers from surgery. * GIOVANNY Mendiola - 11/17/2022 2:05 PM EST NUTRITION RISK SCREENING NOTE Nutrition Plan of Care: 1. Continue current diet order. 2. Will provide a supplement Glucerna (220 kcal, 10 g PRO each) once daily with Lunch . 3. Monitor for significant weight changes. 4. Monitor and encourage po intakes with goal of average po being 75-100%. 5. exercise equipment repair technician to follow. Lauraareli Stephens is a 52 y.o. male admitted with a past medical history of ETOH use and nicotine dependence. He presented to [facility] with symptoms of Chest pain radiating to his left shoulder and down left arm, shortness of breath, transient nausea, and fatigue associated with shoveling snow at work the morning of 11/08/2022. EMS was called and patient transported to ED for further evaluation. Patient states his symptoms improved during transport and reports no chest pain or other symptoms on arrival to [facility]. Patient uncertain but may have experienced similar but less severe. Met with patient today at bedside wearing mask and eye protection. Filler Shredder Machine Screening Pt's appetite is good. Pt with no nausea, vomiting, diarrhea or constipation. Pt with no issues with chewing and/or swallowing. Pt had a 1% recorded weight change with -I&O's this admission. Pt stated his usual weight is approximately 200#'s and denies weight changes over the past three months. Nutrition Risk Screening (MST) Has patient lost weight recently without trying?: 0- no Have you been eating poorly because of decreased appetite?: 0- No Malnutrition Screening Tool Score: 0 Past History Past medical, surgical, family, and social histories have been reviewed and are located elsewhere in the medical record. Height: 182.9 cm (6' 0.01) Admit wt: 198 IBW: 178 %IBW: 111% BMI: 26.5 Wt Readings from Last 10 Encounters: 11/16/22 88.9 kg (196 lb) Current Diet Orders Procedures DIET HEART HEALTHY - 4 GM SODIUM Oral Supplement Standing Status: Standing Number of Occurrences: 1 Order Specific Question: Additional Modifier: Answer: Oral Supplement Food Allergies reviewed:None Cultural or Christianity Restrictions/Preferences: None Skin Dakotah Score: 19 Pt does not meet criteria for STAND skin bundle Active Wounds: Wound Incision 11/13/22 1349 Midline Sternum (4) Wound Incision 11/13/22 1349 Distal;Left Thigh (4) Wound Incision 11/16/22 0932 Upper;Anterior Abdomen (1) Edema: - Summary Pt is at nutrition risk due to the following; wounds(incisions), admitting dx, chronic conditions. Pt stated having a good appetite/PO and has been consuming 75% on average all meals, over the past 9days. Pt had a 1% recorded weight change with -I&O's this admission. Pt stated his usual weightis approximately 200#'s and denies weight changes over the past three months. Pt aggress to Glucerna/boost with lunch to assist with wound healing process. Pt has no other nutritional concerns and denies N/V, diarrhea, constipation,chewing/swallow. Follow for tolerance to PO and weight changes. GIOVANNY MendiolaR Pager:[phone] * Jarocho Candelario, PT - 11/17/2022 1:19 PM EST Physical Therapy Attempt Note 11/17/2022 PT Therapy Completed: Attempted Attempted Reason: (witnessed pt ambulating multiple laps with this morning, with rollator, no assistance. PT will monitor at this point.) Jarocho Candelario, PT Time In: 1318 Time Out: 1318 Total Visit Time: 0 minutes Total Treatment Time (skilled, billable minutes): 0 minutes * Conrad Manriquez PA-C - 11/17/2022 8:29 AM EST CSY DAILY PROGRESS NOTE HISTORY OF PRESENT ILLNESS: Mr. Stephens is a 52 y.o. male With past medical history of tobacco use, EtOH use, who presented withangina found to have NSTEMI now s/p CABGx2 (SNOWDEN-LAD, SVG-OM) with Dr. Jara on 11/13/2022. DATE OF SURGERY: 11/13/2022 PROCEDURE: CABGx2 (SNOWDEN-LAD, SVG-OM) SURGEON: Dr. Derek Jara POD: 4 24-hour interval history: No acute issues overnight. Patient resting in bed in NAD. YURI drain with 65 cc's out in the last 24 hours. Plan for 11/17/2022: - Probable discharge tomorrow after YURI drain removal - Appointment e-mail sent - Will need shower education after YURI drain removal - Continue diuresis - PT/OT/Ambulate Dispo: Home Ambulation: Ambulating the halls with PT/OT OBJECTIVE LABS: Recent Labs 11/17/22 0305 WBC 9.48 HGB 9.5* HCT 28.1* PLATELET 189 SODIUM 138 POTASSIUM 4.0 CHLORIDE 100 CO2 28 BUN 24 CREATSERUM 1.26 GLUCOSE 115* MAGNESIUM 2.0 IMAGING: Radiological Studies over last 24 hours reviewed. CXR ALLERGIES No Known Allergies MEDS: AMIOdarone 200 mg Oral Daily aspirin 81 mg Oral Daily Atorvastatin 80 mg Oral QHS balsam-castor oil 1 Application Topical TID bisacodyl 10 mg Rectal Daily Clopidogrel 75 mg Oral Daily furOSEmide 20 mg Oral BID AC Gabapentin 300 mg Oral TID heparin 5,000 Units Subcutaneous Q8H lidocaine 2 patch Transdermal Q24H magnesium oxide 400 mg Oral BID Melatonin 6 mg Oral QHS Metoprolol 12.5 mg Oral Q12H Multi-Vitamins 1 tablet Oral Daily nicotine 1 patch Transdermal Q24H And VERIFY LINKED PATCH PLACEMENT Other Q12H Polyethylene glycol 17 g Oral BID Potassium chloride 20 mEq Oral BID Senna 8.6 mg Oral Q12H PHYSICAL EXAM VITALS: Blood pressure 125/78, pulse 79, temperature 97.7 F (36.5 C), temperature source Oral, resp. rate 16, height 1.829 m (6' 0.01), weight 88.9 kg (196 lb), SpO2 94 %. Pulmonary/Cardiac Hemodynamics Pulse (Heart Rate): 79 Intake/Output Summary (Last 24 hours) at 11/17/2022 0829 Last data filed at 11/17/2022 0500 Gross per 24 hour Intake 1130.13 ml Output 3510 ml Net -2379.87 ml Physical Exam General appearance: alert, cooperative, appears stated age Lungs: clear to auscultation bilaterally Heart: regular rate and rhythm, S1, S2 normal, no murmur, click, rub or gallop Abdomen: soft, non-tender. Bowel sounds normal. No masses, no organomegaly Extremities: extremities normal, atraumatic, no cyanosis or edema, Normal ROM. Pulses: 2+ and symmetric Skin: Skin color, texture, turgor normal. No rashes or lesions, incisions: Neurologic: Grossly normal Psych: appropriate mood and affect for clinical situation Incisions: sternotomy incision c/d/i YURI drain in place ASSESSMENT & PLAN Surgical Plan: S/p CABGx2 (SNOWDEN-LAD, SVG-OM) on 11/13/[address] Derek Jara Chest Tubes - YURI drain Pacing Wires - Removed 11/15/22 Sutures/Alicia/Wound vac -- Median sternotomy, LLE vein harvest Antiplatelet: ASA, Plavix Statin: atorvastatin 80 mg Anticoagulation: not indicated Prophylactic Antiarrythmic: amio ppx Imaging Follow-up Plan: PA/Lat at follow up Pathway Status: Yes Neurological - Acute Post-Operative Pain - tylenol, oxy 10, lidocaine patches Active Smoker - nicotine patch Cardiovascular - Coronary Artery Disease NSTEMI s/p CABG - - ASA, statin, Plavix, BB Arrhythmias - amio ppx Hyperlipidemia - atorvastatin Pulmonary - Acute hypoxic respiratory insufficiency- On RA Gastrointestinal - Heart health At risk for post-op constipation- Bowel regimen in place. -BM 11/16/22 Renal - Acute Kidney Injury - Continue diuresis Electrolyte abnormalities: Hypokalemia - Electrolyte replacement per protocol, Maintain K>4.5 Hypomagnesemia - Electrolyte replacement per protocol, Maintain Mg>3.0 Hypocalcemia - Electrolyte replacement per protocol Endocrinology - Stress Hyperglycemia - SSI. Hb A1c 6.0 Hematology - Acute Blood Loss Anemia - Hb 9.5 no indication for transfusions Infectious Disease - Leukocytosis - Resolved Antimicrobial Therapy - completed cecille-op Abx Quality Review Checklist - Diet: Current Diet Orders Procedures DIET HEART HEALTHY - 4 GM SODIUM Oral Supplement Standing Status: Standing Number of Occurrences: 1 Order Specific Question: Additional Modifier: Answer: Oral Supplement DVT Prophylaxis: Heparin Subcutaneous Stress PPI Prophylaxis: Not indicated per protocol Lines / Access: PIVs Therapy Plans: PT / OT Consulted - Awaiting Recommendations Sternal Precautions: Sternotomy Standard Barriers to discharge: YURI drain Discharge Education / Planning: Discharge Plans still Pending -- Patient too ill for education Disposition: [facility] Conrad Manriquez PA-C Cardiac Surgery [facility] Phone #: [phone] * Madison Arias - 11/16/2022 3:12 PM EST Inpatient cardiac Rehab Follow Up Visit AND Activity Session Completed. RN approved, as tolerated, and patient agreeable to visit. Patient reports feeling good without complaints. Activity Session Vitals: 11/16/22 1449 11/16/22 1500 Vital Signs Pulse (Heart Rate) 82 (rest) 90 (post amb) Heart Rate Source Monitor Monitor BP 114/73 114/70 MAP (mmHg) 88 mmHg 85 mmHg BP Method Automatic Automatic BP Location Left arm Left arm BP Position Sitting Sitting O2 Sat (%) 96 % 98 % Patient felt confident with walking 4ww, SOB was rated 2/10 at peak during walk. Activity/Level of Assistance Amb in caballero/ 4ww Ambulation Distance (feet) 800 Symptoms Noted During/After Activity none Positioning Sitting EOB, call light within reach RN notified/aware. Encouraged continued ambulation and discussed appropriate activity progression. Discharge education reviewed with the patient. Patient s questions/concerns addressed. 1 new urinal and 1 weight scale for weight monitoring were provided to the patient and family for use at home. Patient and attended [facility] Discharge Class today, instructed by the Inpatient Cardiopulmonary & Vascular Rehab team. Questions/concerns were addressed and topics below were discussed. 1. Activity Restrictions s/p sternotomy (standard) for 6 weeks 2. Rest Time 3. Activity Guidelines/Recommendations 4. Nutrition 5. Medications 6. Coughing and Deep Breathing 7. Incision Care 8. Post Surgery Blues 9. When to Call the Doctor HUEY Green [phone]) IP Cardiopulmonary & Vascular Rehab Madison Hugo, [place] Inpatient Cardiopulmonary Rehab ([phone]) * Hilary East OT - 11/16/2022 11:47 AM EST Acute Occupational Therapy Treatment Prior to Admission AM-PAC Score: PRIOR LEVEL AM-PAC Activity Raw Score: 24 PRIOR LEVEL AM-PAC Mobility Raw Score: 24 Current AM-PAC score(s): CURRENT AM-PAC Activity Raw Score: 19 Based on the above AM-PAC score(s), and OT clinical judgment, discharge destination recommendation is: Home Barriers to discharge home: Patient needs assistance with ADLs, Patient needs assistance with IADLs(see note below), Patient needs assistance with functional mobility Mobility equipment available at home: rollator ADL equipment available at home: hand held shower hose Equipment recommendations for discharge: tub bench Current therapy frequency recommendation(s) in acute: 3 times a week Precautions and Weightbearing Status: OT Existing Precautions/Restrictions: cardiac, fall, strict sternal (YURI drain) Patient Safety Communication Prior to Visit: Nursing Subjective: Pt agreeable to occupational therapy session. Are we going to walk? Pain: General Pain Documentation (Adult, OB, Peds) Presence of Pain: complains of pain/discomfort Pain Location: incisional DVPRS (Defense and Veterans Pain Rating Scale) DVPRS: Rest: 3- mild pain DVPRS: Activity: 3- mild pain Objective/Observation: Vitals/Vitals Responses to Treatment: Pt EOB HR 79, SPO2 93% BP 107/62 (78) After functional mobility 93% End of session HR 82, SPO2 93% Cognition Overall Cognitive Status: Within Functional Limits Arousal/Alertness: Appropriate responses to stimuli Orientation Level: Oriented X4 Memory: Appears intact Cognition Comments: Pt and spouse receptive to shower education and sternal incision care ADL Assessment/Intervention: ADLs: Eating Assistance: Grooming Assistance: Supervision Grooming Location: standing at sink Grooming Deficit: Activity tolerance Grooming Skilled Rationale (Verbal/Tactile/Visual/Demonstration): Technique of activity, Supervision Grooming Intervention/Details: Pt completed standing grooming and bathing tasks x~10 minutes with close supervision, pt demo good posture and benefits from min verbal cues for rollator placement at sink. Bathing Assistance: Contact guard assist Bathing Location: standing at sink Bathing Deficit: Activity tolerance Bathing Skilled Rationale (Verbal/Tactile/Visual/Demonstration): Cues for increased safety, Setup, Supervision Bathing Intervention/Details: Pt stood for bathing task at sink, pt demo good endurance, intermittent CGA for assist with managing gown and YURI drain with bathing. Therapist reviewed sternal precautions, including utilizing 2 fingers to gently massage incision with antibacterial soap, not spraying water directly onto incision, and utilizing clean, dry towel to gently pat incision dry. Therapist also instructed pt to avoid using lotions, oils, or cologne/perfume around incision. Pt verbalized understanding of energy conservation techniques and demonstrated understanding of sternal precautions via teach back method. UE Dressing Assistance: Contact guard assist UE Dressing Intervention/Details: Light hands on assist for donning gown in standing LE Dressing Assistance: Stand by LE Dressing Location: seated in chair LE Dressing Intervention/Details: Pt demo ability to thread LE into long pants to don, educated on figure four technique Toilet Assistance: Stand by Toileting Location: urinal Toileting Deficit: Balance Toileting Intervention/Details: Pt with static stand x1 min to urinate, SBA for safety Extremity Assessments: See OT Evaluation flowsheet for Extremity Measurement updates. Balance: Sitting Balance Static Sitting-Level of Assistance: Independent Dynamic Sitting-Level of Assistance: Supervision Standing Balance Static Standing-Level of Assistance: Supervision Dynamic Standing-Level of Assistance: Stand-by assist Standing-Balance Support: Rollator Skilled Rationale: Verbal cues Skin and Edema: Mobility Assessment/Intervention: Supine to Sit Mobility Laurel Level: Supine->Sit: contact guard assist Bed Features/Set-up: Supine->Sit: Head of bed elevated Skilled Rationale: Sequencing, Hand placement, Verbal cues Skilled Intervention/Details: Supine->Sit: Pt demo log roll technique Transfer Assessment/Intervention: Sit to Stand Transfer Laurel Level: Sit->Stand: stand-by assist Assistive Device: Sit->Stand: rollator Skilled Rationale: Hand placement, Verbal cues Skilled Intervention/Details: Sit->Stand: x1 EOB x1 chair Stand to Sit Transfer Laurel Level: Stand->Sit: stand-by assist Assistive Device: Stand->Sit: rollator Skilled Rationale: Hand placement, Sequencing Skilled Intervention/Details: Stand->Sit: x2 chair, cues for slow descent Functional Mobility: Functional Mobility Laurel Level: Functional Mobility/Gait: stand-by assist Assistive Device: Functional Mobility/Gait: 4 wheeled walker Functional Mobility Distance: Distance needed to access restroom, Distance needed for common household mobility Ambulation Distance (Feet): 460 Functional Mobility Deficits: Activity tolerance, Shortness of breath Functional Mobility Skilled Rationale: Energy conservation, Proper pacing Skilled Intervention/Details - Functional Mobility/Gait: Pt compelted functional mobility to and from bathroom x2, and x400' in hallway with x3 standing rest breaks, pt benefits from enerrgy conservation education and pacing cues, pt rate 5/10 RPD SOB scale with functional mobility. Functional mobility completed to increased endurance and ease activity demands of OOB and standing I/ADL tasks. Outcome Score(s): CURRENT [facility] Daily Activity Inpatient Short Form Putting on/Taking Off Lower Body Clothin - A Little Assistance Bathin - A Little Assistance Toiletin - A Little Assistance Putting on/Taking Off Upper Body Clothin - A Little Assistance Groomin - A Little Assistance Eatin - No Assistance CURRENT [facility] Activity Raw Score: 19 CURRENT -[facility] Activity Functional Limitation/Modifier: 42.80% Currently Impaired in Daily Activity- CK Interventions: Assessment & Plan: Pt currently demonstrates good progress towards OT plan of care goals. Pt is improving with functional mobility for ADls, bathing and dressing, however is limited by endurance/SOB. Pt would benefit from continued OT services to improve functional independence with I/ADL tasks, prevent hospital-associated deconditioning and falls, and to reduce the burden of care at discharge. Patient Instruction/Education this session: Patient Instruction: role of OT, plan of care Plan for next session: shower once YURI drain removed Acute OT Goals Plan of Care by Hilary East OT at 11/16/2022 11:47 AM Version 1 of 1 Problem: OT - Transfers Goal: Transfers Toilet/Bedside Commode Description: Pt will transfer to/from toilet/BSC with modified independence for improved ability tosafely complete ADLs. Outcome: Ongoing Problem: OT - Dressing Goal: Lower Body Dressing Description: Pt will complete LE dressing tasks with modified independence for improved ability to complete self-care activities. Outcome: Progressing Toward Goal Problem: OT - ADLs Goal: Toileting Description: Pt will complete toileting task including clothing management with modified independence for improved ability to safely complete self-care activities. Outcome: Progressing Toward Goal Goal: Bathing Description: Pt will perform full body bathing routine with modified independence for improved ability to complete self-care activities. Outcome: Progressing Toward Goal Problem: OT - Balance Goal: Balance - Standing Description: Pt will perform 5 minutes of functional ADL task in standing with modified independence and good balance to promote safety and improved balance required for self-care activities. Outcome: Progressing Toward Goal Problem: OT - Other Goal: Precaution Adherence Description: Pt will demonstrate 100% adherence to sternal precautions during all ADLs and transfers to promote safety during daily routine. Outcome: Progressing Toward Goal OT treatment consisted of ADL retraining to work and progress towards above goal(s). Treating Therapist: Hilary East OT Additional Details: Co-evaluation/co-treatment performed?: No simultaneous skilled care performed I used gloves and facemask in today's patient interaction. Patient location at end of session: chair and RN aware Alarms on at end of session: none Needs in reach. Time In: 1147 Time Out: 1229 Total Visit Time: 42 minutes Total Treatment Time (skilled, billable minutes): 42 minutes Upon discontinuation of Acute Care Occupational Therapy Services or patient discharge from the hospital this note represents the current Occupational Therapy Discharge Summary. * Conrad Manriquez PA-C - 11/16/2022 10:33 AM EST CSY DAILY PROGRESS NOTE HISTORY OF PRESENT ILLNESS: Mr. Stephens is a 52 y.o. male With past medical history of tobacco use, EtOH use, who presented withangina found to have NSTEMI now s/p CABGx2 (SNOWDEN-LAD, SVG-OM) with Dr. Jara on 11/13/2022. DATE OF SURGERY: 11/13/2022 PROCEDURE: CABGx2 (SNOWDEN-LAD, SVG-OM) SURGEON: Dr. Derek Jara POD: 3 24-hour interval history: No acute issues overnight. Had BM. Patient resting in bed in NAD. Plan for 11/16/2022: - Advance diet - Wean supplemental O2 for sats >90% on room air - Remove all chest tubes and leave YURI drain in place - PT/OT/Ambulate Dispo: Likely home when medically ready Ambulation: Ambulating the halls with PT/OT OBJECTIVE LABS: Recent Labs 11/13/22 1951 11/13/22 2111 11/16/22 0556 11/16/22 0631 WBC 18.23* < > 10.90* -- HGB 10.9* < > 10.1* -- HCT 32.3* < > 29.8* -- PLATELET 104* < > 161 -- SODIUM 142 < > 137 -- POTASSIUM 4.3 < > 4.0 -- CHLORIDE 110* < > 99 -- CO2 23 < > 30 -- BUN 16 < > 18 -- CREATSERUM 1.26 < > 1.28 -- GLUCOSE 104* < > 111* 108* MAGNESIUM 2.4 < > 1.8 -- PHOSPHORUS 4.6 -- -- -- < > = values in this interval not displayed. IMAGING: Radiological Studies over last 24 hours reviewed. CXR ALLERGIES No Known Allergies MEDS: Sodium chloride 0.9% Stopped (11/15/22 0701) Acetaminophen 650 mg Oral 4x daily Or Acetaminophen 650 mg Per NG tube 4x daily AMIOdarone 200 mg Oral Daily aspirin 81 mg Oral Daily Atorvastatin 80 mg Oral QHS balsam-castor oil 1 Application Topical TID bisacodyl 10 mg Rectal Daily Clopidogrel 75 mg Oral Daily furOSEmide 40 mg Oral BID AC Gabapentin 300 mg Oral TID heparin 5,000 Units Subcutaneous Q8H lidocaine 2 patch Transdermal Q24H Melatonin 6 mg Oral QHS Metoprolol 12.5 mg Oral Q12H Or Metoprolol 12.5 mg Per NG tube Q12H Multi-Vitamins 1 tablet Per NG tube Daily Or Multi-Vitamins 1 tablet Oral Daily nicotine 1 patch Transdermal Q24H And VERIFY LINKED PATCH PLACEMENT Other Q12H Polyethylene glycol 17 g Oral BID Senna 8.6 mg Oral Q12H PHYSICAL EXAM VITALS: Blood pressure 102/62, pulse 70, temperature 97.7 F (36.5 C), temperature source Oral, resp. rate 23, height 1.829 m (6' 0.01), weight 88.9 kg (196 lb), SpO2 94 %. Pulmonary/Cardiac Hemodynamics Pulse (Heart Rate): 70 Intake/Output Summary (Last 24 hours) at 11/16/2022 1033 Last data filed at 11/16/2022 0814 Gross per 24 hour Intake 2350 ml Output 1563 ml Net 787 ml Physical Exam General appearance: alert, cooperative, appears stated age Lungs: clear to auscultation bilaterally Heart: regular rate and rhythm, S1, S2 normal, no murmur, click, rub or gallop Abdomen: soft, non-tender. Bowel sounds normal. No masses, no organomegaly Extremities: extremities normal, atraumatic, no cyanosis or edema, Normal ROM. Pulses: 2+ and symmetric Skin: Skin color, texture, turgor normal. No rashes or lesions, incisions: Neurologic: Grossly normal Psych: appropriate mood and affect for clinical situation Incisions: sternotomy incision c/d/i YURI drain in place ASSESSMENT & PLAN Surgical Plan: S/p CABGx2 (SNOWDEN-LAD, SVG-OM) on 11/13/[address] Derek Jara Chest Tubes - YURI drain Pacing Wires - Removed 11/15/22 Sutures/[place]/Wound vac -- Median sternotomy, LLE vein harvest Antiplatelet: ASA, Plavix Statin: atorvastatin 80 mg Anticoagulation: not indicated Prophylactic Antiarrythmic: amio ppx Imaging Follow-up Plan: PA/Lat at follow up Pathway Status: Yes Neurological - Acute Post-Operative Pain - tylenol, oxy 10, lidocaine patches Active Smoker - nicotine patch Cardiovascular - Coronary Artery Disease NSTEMI s/p CABG - - ASA, statin, Plavix, BB Arrhythmias - amio ppx Hyperlipidemia - atorvastatin Pulmonary - Acute hypoxic respiratory insufficiency- Wean supplemental O2 for sats > 90% Gastrointestinal - Heart health At risk for post-op constipation- Bowel regimen in place. -BM 11/16/22 Renal - Acute Kidney Injury - Continue diuresis Electrolyte abnormalities: Hypokalemia - Electrolyte replacement per protocol, Maintain K>4.5 Hypomagnesemia - Electrolyte replacement per protocol, Maintain Mg>3.0 Hypocalcemia - Electrolyte replacement per protocol Endocrinology - Stress Hyperglycemia - SSI. Hb A1c 6.0 Hematology - Acute Blood Loss Anemia - Hb 10.1 no indication for transfusions Infectious Disease - Leukocytosis - WBC improving. Likely reactive in setting of post op phase Antimicrobial Therapy - completed cecille-op Abx Quality Review Checklist - Diet: Current Diet Orders Procedures DIET HEART HEALTHY - 4 GM SODIUM Standing Status: Standing Number of Occurrences: 1 DVT Prophylaxis: Heparin Subcutaneous Stress PPI Prophylaxis: Not indicated per protocol Lines / Access: PIVs Therapy Plans: PT / OT Consulted - Awaiting Recommendations Sternal Precautions: Sternotomy Standard Barriers to discharge: deconditioning Discharge Education / Planning: Discharge Plans still Pending -- Patient too ill for education Disposition: [facility] Conrad Manriquez PA-C Cardiac Surgery [facility] Phone #: [phone] * Jarocho Candelario PT - 11/16/2022 8:47 AM EST Acute Physical Therapy Treatment Prior to Admission [facility] score(s): PRIOR LEVEL AM-PAC Mobility Raw Score: 24 PRIOR LEVEL AM-PAC Activity Raw Score: 24 Current AM-PAC score(s): CURRENT AM-PAC Mobility Raw Score: 19 Based on the above AM-PAC score(s) and PT clinical judgment, patient is a good candidate for discharge to Home (with cardiac rehab when appropriate) Barriers to discharge home: None Mobility equipment available at home: rollator ADL equipment available at home: hand held shower hose Equipment needed for discharge: to be determined Current therapy frequency recommendation in acute: Therapy Frequency: 5 times a week Precautions and Weightbearing Status: Existing Precautions/Restrictions: cardiac, fall (sternal) Chest tube (x 3) Patient Safety Communication Prior to Visit: Nursing Subjective: Pt in bed, agreeable to PT. I'm worn out following session. Pain: General Pain Documentation (Adult, OB, Peds) Presence of Pain: complains of pain/discomfort Pain Location: incisional DVPRS (Defense and Veterans Pain Rating Scale) DVPRS: Rest: 4- mild pain DVPRS: Activity: 5- moderate pain Objective/Observation: Vitals/Vitals Responses to Treatment: Maintains sats 90+% on room air throughout session (READ-ONLY/RETIRED) Respiratory Status O2 Device: room air Cognition Overall Cognitive Status: Within Functional Limits Arousal/Alertness: Appropriate responses to stimuli Orientation Level: Oriented X4 Following Commands: Follows all commands and directions without difficulty Safety Judgment: Good awareness of safety precautions Memory: Decreased recall of precautions (minor) Extremity Assessments: See PT Evaluation flowsheet for Extremity Measurement updates. Balance: Sitting Balance Static Sitting-Level of Assistance: Independent Dynamic Sitting-Level of Assistance: Supervision Skilled Rationale: Verbal cues Standing Balance Static Standing-Level of Assistance: Supervision Dynamic Standing-Level of Assistance: Stand-by assist Standing-Balance Support: Rollator Skilled Rationale: Verbal cues, Full extension to upright positioning/posture, Upright gaze/neck extension, Breathing strategies Mobility Assessment/Intervention: Supine to Sit Mobility Laurel Level: Supine->Sit: contact guard assist Bed Features/Set-up: Supine->Sit: Head of bed elevated Skilled Rationale: Hand placement, Verbal cues, Tactile cues, Technique of activity, Initiation andexecution of task, Breathing strategies Sit to Supine Mobility Laurel Level: Sit->Supine: minimum assist (75% patient effort) Bed Features/Set-up: Sit->Supine: Flat Skilled Rationale: Hand placement, Verbal cues, Tactile cues, Technique of activity, Breathing strategies, Maintain precautions Transfer Assessment/Intervention: Sit to Stand Transfer Laurel Level: Sit->Stand: stand-by assist Skilled Rationale: Hand placement, Verbal cues, Facilitate anterior shift, Full extension to upright positioning/posture, Technique of activity, Breathing strategies, Maintain precautions Skilled Intervention/Details: Sit->Stand: x 8 total from EOB Stand to Sit Transfer Laurel Level: Stand->Sit: stand-by assist Skilled Rationale: Hand placement, Verbal cues, Controlled descent for sitting, Technique of activity, Breathing strategies, Maintain precautions Gait/Functional Mobility Assessment/Intervention: Gait Assessment Laurel Level: Gait: stand-by assist Assistive Device: Gait: rollator Ambulation Distance (Feet): 250 Gait Deviations Identified: decreased barron, decreased step length, decreased stride length Gait Skilled Rationale: verbal, upright posture, proximity of assistive device Stairs Assessment/Intervention: Stairs Assessment Laurel Level: Stair Negotiation: contact guard assist Assistive Device: Stair Negotiation: (hands at countertop) Number of stairs: 6 (single stairs on curbstep) Stairs Skilled Rationale: verbal, tactile, demonstration, nonreciprocal pattern, general safety Outcome Score(s): CURRENT AM-PAC Basic Mobility Inpatient Short Form Turning over in bed: 4 - No Assistance Sitting/standing from chair: 3 - A Little Assistance Moving from lying on back to sittin - A Little Assistance Moving to and from bed to chair: 3 - A Little Assistance Walk in hospital room: 3 - A Little Assistance Climbing 3-5 steps with a railin - A Little Assistance CURRENT -[facility] Mobility Raw Score: 19 CURRENT [facility] Mobility Functional Limitation/Modifier: 41.77% Currently Impaired in Basic Mobility- CK Interventions: Two stands from EOB prior to walk, walked 250 feet and back to room. 5 repeated stands from EOB at 19 height to work on both technique and functional quad and glute strength. Assessment & Plan: Progressing nicely and should be good for home when appropriate for discharge. Still with some endurance issues and functional strength deficits, but will not inhibit ability to return home. Patient Instruction/Education this session: plan of care Plan for next session: advance ambulation, wean WW, functional strength Acute PT Goals Plan of Care by Jarocho Candelario PT at 11/16/2022 8:47 AM Version 1 of 1 Problem: PT - Mobility Goal: Ambulation Description: Pt will ambulate 250 feet with least restrictive device with modified independence to improve ability to navigate home environment. Outcome: Ongoing Goal: Stairs Description: Pt will ascend/descend 1 stairs with railings with standby assistance with least restrictive device to improve ability to perform functional mobility necessary in recommended discharge environment. Outcome: Ongoing Problem: PT - Transfers Goal: Supine <-> Sit Description: Pt will perform bed mobility with flat bed & no rail with modified independence inorder to improve functional mobility and safety. Outcome: Ongoing Goal: Sit <-> Stand Description: Pt will perform sit to/from stand transfers with modified independence with least restrictive device in order to improve functional mobility and safety. Outcome: Ongoing Goal: Other Description: Pt will maintain sternal precautions 100% of the time during functional mobility and ambulation without need for cues. Outcome: Ongoing PT treatment consisted of Therapeutic Procedure and Gait/Stair Training to work and progress towards above goal(s). Treating Therapist: Jarocho Candelario PT Additional Details: Co-evaluation/co-treatment performed?: No simultaneous skilled care performed - I used gloves and facemask in today's patient interaction. Patient location at end of session: bed with head of bed elevated Alarms on at end of session: none Needs in reach. Time In: 819 Time Out: 846 Total Visit Time: 27 minutes Total Treatment Time (skilled, billable minutes): 27 minutes Upon discontinuation of Acute Care Physical Therapy Services or patient discharge from the hospitalthis note represents the current Physical Therapy Discharge Summary. * Rita Sorto RN - 11/15/2022 3:53 PM EST Progression of Care Note Expected Discharge Date: 11/18/2022 Medical Milestones Remaining: pacer wires removed today, chest tubes remain at this time Assessment and Discharge Plan as of 11/15/2022 3:53 PM Anticipated discharge disposition: Home Readmission Risk Score Risk of Readmission: 3.7 Category Reference: High:16-100 Mod-High:10-16 Mod-Low: 5-10 Low: 0-5 * Karen Urrutia - 11/15/2022 2:27 PM EST Inpatient Cardiac Rehab Consultation AND Activity Session Completed. RN approved, as tolerated, andpatient agreeable to visit. Patient reports feeling OK without complaints. Patient demonstrated IS x 2 up to 500 mL with good technique. Activity Session Vitals: 11/15/22 1408 11/15/22 1427 Vital Signs Pulse (Heart Rate) 79 (pre-amb) 94 (post-amb) Heart Rate Source Monitor Monitor Resp Rate 22 -- BP 119/76 131/86 MAP (mmHg) 93 mmHg 104 mmHg BP Method Automatic Automatic BP Location Left arm Left arm BP Position Lying Lying O2 Sat (%) 95 % 95 % Activity/Level of Assistance Amb in caballero/Ax1, 4-ww Ambulation Distance (feet) 280 Symptoms Noted During/After Activity SoB Positioning Supine HoB, call light within reach RN notified/aware. Encouraged continued ambulation and discussed appropriate activity progression. Patient participation in outpatient cardiac rehab was discussed. Patient is interested in participating in rehab at their local facility: [facility]. Discharge education provided to the patient. Printed materials provided/reviewed: Open Heart Surgery Guide, Sternal Precautions handout. Patient s questions/concerns were addressed and topics below were discussed. 1. Activity Restrictions s/p sternotomy (standard) for 6 weeks 2. Rest Time 3. Activity Guidelines/Recommendations 4. Nutrition 5. Medications 6. Coughing and Deep Breathing 7. Incision Care 8. Post Surgery Blues 9. When to Call the Doctor We will continue to follow up with patient as needed until discharge for education review and activity progression. Karen Urrutia, [phone]) IP Cardiopulmonary Rehab * Nava Jeronimo PA-C - 11/15/2022 1:41 PM EST CSY DAILY PROGRESS NOTE HISTORY OF PRESENT ILLNESS: Mr. Stephens is a 52 y.o. male With past medical history of tobacco use, EtOH use, who presented withangina found to have NSTEMI now s/p CABGx2 (SNOWDEN-LAD, SVG-OM) with Dr. Jara on 11/13/2022. DATE OF SURGERY: 11/13/2022 PROCEDURE: CABGx2 (SNOWDEN-LAD, SVG-OM) SURGEON: Dr. Derek Jara POD: 2 24-hour interval history: No acute issues overnight. Plan for 11/15/2022: - Remove epicardial pacing wires - Start plavix today after wires are removed - Wean supplemental O2 for sats >90% on room air - Add suppository for BM - PT/OT/Ambulate - Split pleural chest tubes Dispo: Likely home when medically ready Ambulation: Ambulating the halls with PT/OT OBJECTIVE LABS: Recent Labs 11/13/22 1951 11/13/22 2111 11/15/22 0010 11/15/22 0638 11/15/22 1022 WBC 18.23* < > 11.48* -- -- HGB 10.9* < > 9.2* -- -- HCT 32.3* < > 27.0* -- -- PLATELET 104* < > 128* -- -- SODIUM 142 < > 138 -- -- POTASSIUM 4.3 < > 3.8 -- -- CHLORIDE 110* < > 104 -- -- CO2 23 < > 27 -- -- BUN 16 < > 23 -- -- CREATSERUM 1.26 < > 1.35* -- -- GLUCOSE 104* < > 110* < > 109* MAGNESIUM 2.4 < > 2.0 -- -- PHOSPHORUS 4.6 -- -- -- -- < > = values in this interval not displayed. Ptt/Pt/Inr: 36.9/15.5/1.2 (11/15 0010) IMAGING: Radiological Studies over last 24 hours reviewed. CXR ALLERGIES No Known Allergies MEDS: Sodium chloride 0.9% Stopped (11/15/22 0701) Acetaminophen 650 mg Oral 4x daily Or Acetaminophen 650 mg Per NG tube 4x daily AMIOdarone 200 mg Oral Daily aspirin 81 mg Oral Daily Atorvastatin 80 mg Oral QHS balsam-castor oil 1 Application Topical TID bisacodyl 10 mg Rectal Daily [START ON 11/16/2022] Clopidogrel 75 mg Oral Daily furOSEmide 20 mg Oral BID AC Gabapentin 300 mg Oral TID heparin 5,000 Units Subcutaneous Q8H Insulin lispro Subcutaneous 4x daily w/meals, HS lidocaine 2 patch Transdermal Q24H Melatonin 6 mg Oral QHS Metoprolol 12.5 mg Oral Q12H Or Metoprolol 12.5 mg Per NG tube Q12H Multi-Vitamins 1 tablet Per NG tube Daily Or Multi-Vitamins 1 tablet Oral Daily nicotine 1 patch Transdermal Q24H And VERIFY LINKED PATCH PLACEMENT Other Q12H Polyethylene glycol 17 g Oral BID Senna 8.6 mg Oral Q12H PHYSICAL EXAM VITALS: Blood pressure 110/63, pulse 90, temperature 97.9 F (36.6 C), temperature source Oral, resp. rate 20, height 1.829 m (6' 0.01), weight 90.5 kg (199 lb 9.6 oz), SpO2 96 %. Pulmonary/Cardiac Hemodynamics Pulse (Heart Rate): 90 Intake/Output Summary (Last 24 hours) at 11/15/2022 1341 Last data filed at 11/15/2022 1000 Gross per 24 hour Intake 3131.03 ml Output 3850 ml Net -718.97 ml PHYSICAL EXAM: GENERAL: NAD, sitting up in chair HEENT: PEERL, EOMI, MMM NECK: Supple, Trachea not deviated HEART: RRR, +S1+S2, No murmers LUNG: Non-Labored breathing on nasal cannula. CTAB CHEST WALL: sternotomy incision, mediastinal chest tube, pleural chest tube b/l, V-wires. YURI drain ABD: Soft, Non-Distended, Non-Tender EXT: Warm, no cyanosis. LLE wrapped. PULSE: Palpable Bilateral DP Pulses MUSC: Moves all 4 Extremities NEURO: II-XII Grossly intact, no acute deficits appreciated PSYCH: Appropriate for the clinical situation CHEST TUBES: Mediastinal, Rt and Left pleurals Y'd PACING WIRES: Ventricular ASSESSMENT & PLAN Surgical Plan: S/p CABGx2 (SNOWDEN-LAD, SVG-OM) on 11/13/[address] Derek Jara Chest Tubes - bilateral pleural Y'd. mediastinal x2 Pacing Wires - Ventricular - on back up Sutures/Alicia/Wound vac -- Median sternotomy, LLE vein harvest Antiplatelet: ASA, Plavix to start after pacing wires pulled Statin: atorvastatin 80 mg Anticoagulation: not indicated Prophylactic Antiarrythmic: amio ppx Imaging Follow-up Plan: PA/Lat at follow up Pathway Status: Yes Neurological - Acute Post-Operative Pain - tylenol, oxy 10, lidocaine patches Active Smoker - nicotine patch Cardiovascular - Coronary Artery Disease NSTEMI s/p CABG - - ASA, statin, Plavix after pacing wires are out Arrhythmias - amio ppx Hyperlipidemia - atorvastatin Pulmonary - Acute hypoxic respiratory insufficiency- Wean supplemental O2 for sats > 90% Gastrointestinal - ADAT. At risk for post-op constipation- Bowel regimen in place. Last Bowel Movement: 11/11/22 Renal - Acute Kidney Injury - Improving. Will initiate diuresis if not negative on his own. Electrolyte abnormalities: Hypokalemia - Electrolyte replacement per protocol, Maintain K>4.5 Hypomagnesemia - Electrolyte replacement per protocol, Maintain Mg>3.0 Hypocalcemia - Electrolyte replacement per protocol Endocrinology - Stress Hyperglycemia - SSI. Hb A1c 6.0 Hematology - Acute Blood Loss Anemia - Hb 11 no indication for transfusions Infectious Disease - Leukocytosis - WBC improving. Likely reactive in setting of post op phase Antimicrobial Therapy - completed cecille-op Abx Quality Review Checklist - Diet: Current Diet Orders Procedures DIET CLEAR LIQUID Carb Controlled Standing Status: Standing Number of Occurrences: 1 Order Specific Question: Additional Modifier: Answer: Carb Controlled DVT Prophylaxis: Heparin Subcutaneous Stress PPI Prophylaxis: Not indicated per protocol Lines / Access: PIVs Therapy Plans: PT / OT Consulted - Awaiting Recommendations Sternal Precautions: Sternotomy Standard Barriers to discharge: Chest tubes, wires Discharge Education / Planning: Discharge Plans still Pending -- Patient too ill for education Disposition: PCU Nava Jeronimo PA-C Cardiac Surgery [facility] Phone #: [phone] * Conrad Manriquez PA-C - 11/15/2022 1:01 PM EST Procedure Temporary Epicardial Pacer Wire Removal Wire removal type: ventricular Pre-Procedure Assessment Current ECG rhythm at time of removal: NSR Post-Procedure Vitals Patients should remain on bedrest for 1 hour after removal with vital signs q15 minutes x2, then q30 minutes x1 Patient tolerated procedure: yes Unexpected outcomes: no Notes: RN notified. Risks explained to patient. Conrad Manriquez PA-C * Derek Jara MD, PhD - 11/15/2022 12:42 PM EST I, Dr. Derek Jara, have independently interviewed and examined Mr. Stephens The EMR was reviewed. I discussed the plan of care with the residents/fellows/advanced practice providers. I have reviewedtheir note and agree with the findings and plan of care as documented. Doing well post CABG x 2 Pathway Plan to remove wires and start clopidogrel for NSTEMI Diuresis today - scheduled 20 PO bid Split chest tubes Discharge planning, potentially tomorrow/Sunday -- Derek Jara MD, PhD Office: [phone] Pager: [phone] * Gary Gimenez PT - 11/15/2022 11:00 AM EST Acute Physical Therapy Treatment Prior to Admission [facility] score(s): PRIOR LEVEL AM-PAC Mobility Raw Score: 24 PRIOR LEVEL AM-PAC Activity Raw Score: 24 Current AM-PAC score(s): CURRENT AM-PAC Mobility Raw Score: 18 Based on the above AM-PAC score(s) and PT clinical judgment, patient is a good candidate for discharge to (Anticipate progress to home) (limited d/t pain with two chest tubes, imagine will progress quickly following removal, spouse able to support, may require rollator, but will determine followingchest tube removal) Mobility equipment available at home: rollator ADL equipment available at home: hand held shower hose Equipment needed for discharge: to be determined Current therapy frequency recommendation in acute: Therapy Frequency: 5 times a week Precautions and Weightbearing Status: Existing Precautions/Restrictions: cardiac, fall Telemetry, Chest tube, External pacemaker Patient Safety Communication Prior to Visit: Nursing Subjective: Let's try it Pain: General Pain Documentation (Adult, OB, Peds) Presence of Pain: denies pain/discomfort Objective/Observation: Vitals/Vitals Responses to Treatment: WFL, see below Cognition Overall Cognitive Status: Within Functional Limits Arousal/Alertness: Appropriate responses to stimuli Orientation Level: Oriented X4 Following Commands: Follows all commands and directions without difficulty Extremity Assessments: See PT Evaluation flowsheet for Extremity Measurement updates. Skin and Edema: Balance: Sitting Balance Static Sitting-Level of Assistance: Supervision Dynamic Sitting-Level of Assistance: Standby Skilled Rationale: Finding/maintaining midline positioning, Upright gaze/neck extension Standing Balance Static Standing-Level of Assistance: Stand-by assist Dynamic Standing-Level of Assistance: Contact guard Standing-Balance Support: Gait belt, Rollator Skilled Rationale: Upright gaze/neck extension, Finding/maintaining midline positioning Mobility Assessment/Intervention: Rolling/Turning Mobility Laurel Level: Rolling/Turning: minimum assist (75% patient effort) Bed Features/Set-up: Rolling/Turning: Flat Skilled Rationale: Technique of activity, Maintain precautions Sit to Supine Mobility Laurel Level: Sit->Supine: minimum assist (75% patient effort) Bed Features/Set-up: Sit->Supine: Flat Skilled Rationale: Hand placement, Verbal cues, Technique of activity, Maintain precautions Transfer Assessment/Intervention: Sit to Stand Transfer [place] Level: Sit->Stand: contact guard assist Assistive Device: Sit->Stand: gait belt, rollator Skilled Rationale: Hand placement, Verbal cues, Facilitate anterior shift, Technique of activity, Maintain precautions Skilled Intervention/Details: Sit->Stand: x3 Stand to Sit Transfer Laurel Level: Stand->Sit: contact guard assist Assistive Device: Stand->Sit: gait belt, rollator Skilled Rationale: Controlled descent for sitting, Technique of activity Gait/Functional Mobility Assessment/Intervention: Gait Assessment [place]urel Level: Gait: contact guard assist Assistive Device: Gait: gait belt, rollator Ambulation Distance (Feet): 170 (total) Gait Deviations Identified: decreased barron, decreased gait speed, decreased heel strike, flexed posture, shuffling Gait Skilled Rationale: verbal, tactile, upright posture, increase step length, keeping hands on assistive device, proximity of assistive device Skilled Intervention/Details - Gait: Pt rates gait training at 5/10 on the modified rating of perceived exertion (MRPE) scale. Pt required 1 seated rest breaks and 1 standing rest breaks during gait training. Pt performed gait training on 1L 02 via nasal cannula and maintained a Sa02 above 95%. Stairs Assessment/Intervention: Stairs Assessment Laurel Level: Stair Negotiation: not tested Outcome Score(s): CURRENT [facility] Basic Mobility Inpatient Short Form Turning over in bed: 3 - A Little Assistance Sitting/standing from chair: 3 - A Little Assistance Moving from lying on back to sittin - A Little Assistance Moving to and from bed to chair: 3 - A Little Assistance Walk in hospital room: 3 - A Little Assistance Climbing 3-5 steps with a railin - A Little Assistance CURRENT [facility] Mobility Raw Score: 18 CURRENT [facility] Mobility Functional Limitation/Modifier: 46.58% Currently Impaired in Basic Mobility- CK Interventions: Pt performs therapeutic exercise to bilateral LE's AROM x 10 reps x 1 sets of long arc quads and ankle pumps, performed to increase strength and endurance in preparation for improved transfers, balance, and gait performance. Cues for full ROM, technique, and to perform as HEP as able. Assessment & Plan: Pt making excellent progress towards established plan of care. Patient improving gait distance, strength and balance as seen above, however continues to be limited by endurance deficits, impaired balance/strength, and impaired mobility compared to baseline. Pt would benefit from additional PT services at this time, and at discharge to increase independence with functional mobility. Patient Instruction/Education this session: Pt educated on precautions, breathing techniques, progression, ambulation goals, self pacing and HEP on this date. Plan for next session: gait, stair, transfer training Acute PT Goals Plan of Care by Gary Gimenez PT at 11/15/2022 11:00 AM Version 1 of 1 Problem: PT - Mobility Goal: Ambulation Description: Pt will ambulate 250 feet with least restrictive device with modified independence to improve ability to navigate home environment. Outcome: Ongoing Problem: PT - Transfers Goal: Supine <-> Sit Description: Pt will perform bed mobility with flat bed & no rail with modified independence inorder to improve functional mobility and safety. Outcome: Ongoing Goal: Sit <-> Stand Description: Pt will perform sit to/from stand transfers with modified independence with least restrictive device in order to improve functional mobility and safety. Outcome: Ongoing Goal: Other Description: Pt will maintain sternal precautions 100% of the time during functional mobility and ambulation without need for cues. Outcome: Ongoing PT treatment consisted of Therapeutic Activity and Gait/Stair Training to work and progress towardsabove goal(s). Treating Therapist: Gary Gimenez PT Additional Details: Co-evaluation/co-treatment performed?: No simultaneous skilled care performed I used facemask, protective eye shield, and gloves in today's patient interaction. Patient location at end of session: bed with head of bed elevated Alarms on at end of session: none Needs in reach. Time In: 1100 Time Out: 1130 Total Visit Time: 30 minutes Total Treatment Time (skilled, billable minutes): 30 minutes Upon discontinuation of Acute Care Physical Therapy Services or patient discharge from the hospitalthis note represents the current Physical Therapy Discharge Summary. * Darlene Talbot MD, PhD - 11/14/2022 10:14 AM EST CVICU Attending Critical Care NoteASSESSMENT AND PLAN ASSESSMENT AND PLAN Laura Stephens is a 52 y.o. patient s/p CABG x2 (SNOWDEN-LAD, SVG-OM) Important points to emphasize in the critical care management are: - Acute respiratory insufficiency; wean oxygen via NC to maintain SpO2 >92%, start PT/OT, continue pulmonary hygiene - Stress hyperglycemia; transition from insulin gtt to sliding scale per ICU protocol - Acute blood loss anemia; HgB stable, will continue to monitor and transfuse as clinically indicated - Hypocalcemia; replete per ICU protocol - FREDI; creatinine increased, UOP adequate, will continue to monitor - At risk for protein calorie malnutrition; advance diet as tolerated - s/p CABG; NTG x24 hours, continue ASA, start statin, beta braydon. Plavix after pacing wires removed. Line necessity: remove CVC today [place] necessity: remove today Airway necessity: N/A I spent 36 minutes providing critical care services and making complex medical decisions for this critically ill patient on behalf of Derek Jara MD, PhD. This time includes examining the patients, reviewing patient data, discussions with other providers and speaking to family members. This time does not include performing any procedures. I have discussed this patient with the medical student / resident and agree with their assessment, plan and decision making or have made amendments whereappropriate. Desire Hicks MD 11/14/2022 11:00 AM CVICU DAILY PROGRESS NOTE HISTORY OF PRESENT ILLNESS: Mr. Stephens is a 52 y.o. male Smoker, EtOH use, who presented with angina found to have NSTEMI now s/p CABGx2 (SNOWDEN-LAD, SVG-OM) with Dr. Jara on 11/13/2022. DATE OF SURGERY: 11/13/2022 PROCEDURE: CABGx2 (SNOWDEN-LAD, SVG-OM) SURGEON: Dr. Derek Jara POD: 1 24-hour interval history: S/p CABGx2 extubated and now only on nitroglycerin Plan for 11/14/2022: - nitroglycerin for 24 hours - de-line today - increased oxy to 10 - check chem 7 in the afternoon to follow up on FREDI. Allow for autoregulation. - PT/OT - plavix tomorrow after pacing wires removed. - CT to WS - PCU OBJECTIVE LABS: Recent Labs 11/13/22 1951 11/13/22 2111 11/14/22 0338 11/14/22 0345 11/14/22 0631 11/14/22 0718 11/14/22 0903 WBC 18.23* -- 13.56* -- -- -- -- HGB 10.9* -- 11.2* -- -- -- -- HCT 32.3* -- 33.0* -- -- -- -- PLATELET 104* -- 134* -- -- -- -- SODIUM 142 -- 142 -- -- -- -- POTASSIUM 4.3 -- 4.7 -- -- -- -- CHLORIDE 110* -- 108 -- -- -- -- CO2 23 -- 22 -- -- -- -- BUN 16 -- 22 -- -- -- -- CREATSERUM 1.26 -- 1.52* -- -- -- -- GLUCOSE 104* < > 124* < > -- < > 128* MAGNESIUM 2.4 -- -- -- 2.3 -- -- PHOSPHORUS 4.6 -- -- -- -- -- -- < > = values in this interval not displayed. Ptt/Pt/Inr: 31.0/14.8/1.2 (11/14 337) IMAGING: Radiological Studies over last 24 hours reviewed ALLERGIES No Known Allergies MEDS: insulin regular IV infusion Stopped (11/14/22 034) nitroGLYCERIN infusion 10 mcg/min (11/14/22 0800) Sodium chloride 0.9% 1 mL/hr at 11/14/22 0800 Acetaminophen 650 mg Oral 4x daily Or Acetaminophen 650 mg Per NG tube 4x daily aspirin 81 mg Oral Daily Atorvastatin 80 mg Oral QHS balsam-castor oil 1 Application Topical TID [START ON 11/15/2022] bisacodyl 10 mg Rectal Daily ceFAZolin (ANCEF) IV intermittent 2 g Intravenous Q8HNS heparin 5,000 Units Subcutaneous Q8H Insulin lispro Subcutaneous 4x daily w/meals, HS lidocaine 2 patch Transdermal Q24H Magnesium Sulfate IVPB 4 g Intravenous Q12HNS Metoprolol 12.5 mg Oral Q12H Or Metoprolol 12.5 mg Per NG tube Q12H Multi-Vitamins 1 tablet Per NG tube Daily Or Multi-Vitamins 1 tablet Oral Daily nicotine 1 patch Transdermal Q24H And VERIFY LINKED PATCH PLACEMENT Other Q12H Polyethylene glycol 17 g Oral BID Senna 8.6 mg Oral Daily Or Senna 8.6 mg Per NG tube Daily Sodium chloride 0.9% PHYSICAL EXAM VITALS: Blood pressure 119/73, pulse 74, temperature 97.6 F (36.4 C), temperature source Oral, resp. rate 13, height 1.829 m (6' 0.01), weight 87.5 kg (192 lb 14.4 oz), SpO2 95 %. Art Line (1) Monitoring Arterial Line (1) Location: radial artery (Left) Arterial Line (1) BP: 89/57 Arterial Line (1) MAP : 66 mmHg Pulmonary/Cardiac Hemodynamics CVP : 5 mmHg Pulse (Heart Rate): 74 Intake/Output Summary (Last 24 hours) at 11/14/2022 1014 Last data filed at 11/14/2022 0900 Gross per 24 hour Intake 5061.14 ml Output 3015 ml Net 2046.14 ml PHYSICAL EXAM: GENERAL: Alert, appears stated age, No acute distress HEENT: PEERL, EOMI, MMM NECK: Supple, Trachea not deviated HEART: RRR, +S1+S2, No murmers LUNG: Non-Labored, Harsh sounds bilateral bases CHEST WALL: sternotomy incision, mediastinal chest tube, pleural chest tube b/l, V-wires. YURI drain ABD: Soft, Non-Distended, Non-Tender EXT: Warm, no cyanosis. LLE wrapped. PULSE: Palpable Bilateral DP Pulses MUSC: Moves all 4 Extremities NEURO: II-XII Grossly intact, no acute deficits appreciated PSYCH: Appropriate for the clinical situation / Unable to assess due to clinical condition CHEST TUBES: Pleural - RIGHT Pleural - LEFT Mediastinal PACING WIRES: Ventricular ASSESSMENT & PLAN Surgical Plan: S/p CABGx2 (SNOWDEN-LAD, SVG-OM) on 11/13/[address] eDrek Jara Chest Tubes - bilateral pleural mediastinal x2 Pacing Wires - Ventricular - on back up Sutures/[place]/Wound vac -- Median sternotomy, LLE vein harvest Antiplatelet: ASA, Plavix to start after pacing wires pulled Statin: atorvastatin 80 mg Anticoagulation: DVT ppx Prophylactic Antiarrythmic: amio ppx Imaging Follow-up Plan: Daily CXR Pathway Status: Yes Neurological - Acute Post-Operative Pain - tylenol, oxy 10, lidocaine patches Active Smoker - nicotine patch Cardiovascular - Coronary Artery Disease NSTEMI s/p CABG - - ASA, statin, Plavix tomorrow after pacing wires are out - nitroglycerin for 24 hours Arrhythmias - amio ppx Hyperlipidemia - statin Pulmonary - Acute Respiratory Insufficiency resolved - on NC Gastrointestinal - ADAT. Bowel regimen Renal - Acute Kidney Injury - Cr 1.54 will allow for autoregulation of fluids. Check chem 7 in afternoon tosee if patient needs bolus. Electrolyte abnormalities: Hypokalemia - Electrolyte replacement per protocol, Maintain K>4.5 Hypomagnesemia - Electrolyte replacement per protocol, Maintain Mg>3.0 Hypocalcemia - Electrolyte replacement per protocol Endocrinology - Stress Hyperglycemia - SSI. Hb A1c 6.0 Hematology - Acute Blood Loss Anemia - Hb 11 no indication for transfusions Infectious Disease - Leukocytosis - WBC 14 reactive in setting of post op phase Antimicrobial Therapy - completed cecille-op Abx Quality Review Checklist - Diet: Current Diet Orders Procedures DIET CLEAR LIQUID Carb Controlled Standing Status: Standing Number of Occurrences: 1 Order Specific Question: Additional Modifier: Answer: Carb Controlled DVT Prophylaxis: Heparin Subcutaneous Stress PPI Prophylaxis: Not indicated per protocol Lines / Access: PIVs Therapy Plans: PT / OT Consulted - Awaiting Recommendations Sternal Precautions: Sternotomy Standard Caregivers Update: Barriers to discharge: Critically Ill in ICU Discharge Education / Planning: Discharge Plans still Pending -- Patient too ill for education Disposition: ICU Darlene Talbot MD, PhD Cardiac Surgery PGY-2 Phone #: [phone] * Josselyn Gamble OT - 11/14/2022 7:55 AM EST Acute Occupational Therapy Evaluation Prior to Admission AM-PAC Score: PRIOR LEVEL AM-PAC Activity Raw Score: 24 Current AM-PAC score(s): CURRENT AM-PAC Activity Raw Score: 14 Based on the above AM-PAC score(s) and OT clinical judgment, discharge destination recommendation is: (Anticipate pt will progress home with assistance from spouse) Mobility equipment available at home: rollator ADL equipment available at home: hand held shower hose Equipment recommendations for discharge: tub bench Current therapy frequency recommendation(s) in acute: 5 times a week Precautions and Weightbearing Status: OT Existing Precautions/Restrictions: cardiac, fall Telemetry, Chest tube, ECMO, Urinary catheter Patient Safety Communication Prior to Visit: Nursing Subjective: I don't know how well I'll do but I'll try and get up. Pain: General Pain Documentation (Adult, OB, Peds) Presence of Pain: complains of pain/discomfort Pain Location: incisional DVPRS (Defense and Veterans Pain Rating Scale) DVPRS: Rest: 8- severe pain Home Setting Residence: House (1 level with basement) Lives With: spouse (works as a RN at a SNF. 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 Vitals HR (bpm) BP (mmHg) SpO2 (%) 76 112/71 (87) 98% O2 on 2L Pt sitting up in bed with all needs in reach. Vision Screen Currently wearing corrective lenses: Progressive lenses Hearing Hearing: no gross deficits noted Cognition Overall Cognitive Status: Within Functional Limits ADLs: ADL Anticipated Performance (ADLs not directly observed this session): Eating, Bathing, UE Dressing, Toileting Eating Assistance: Independent Grooming Assistance: Stand by Grooming Location: standing at sink Grooming Intervention/Details: Pt stood sink side to wash his face/brush his teeth with SBA for safety. Bathing Assistance: Moderate UE Dressing Assistance: Moderate LE Dressing Assistance: Total LE Dressing Location: seated in chair LE Dressing Intervention/Details: Pt unable to bend over/utilize figure 4 method to don socks due to line management/incision pain, requiring totalA from therapist. Toilet Assistance: Moderate Extremity Assessments: RUE Assessment Right UE Assessment Details: WFL within parameters of sternal precautions LUE Assessment Left UE Assessment Details: WFL within parameters of sternal precautions Balance: Sitting Balance Static Sitting-Level of Assistance: Supervision Dynamic Sitting-Level of Assistance: Standby Standing Balance Static Standing-Level of Assistance: Stand-by assist Dynamic Standing-Level of Assistance: Contact guard Standing-Balance Support: Rollator Neuro: Sensation Overall Sensation: Intact Mobility Assessment: Sit to Supine Mobility Laurel Level: Sit->Supine: maximum assist (25% patient effort) Physical Assist: Sit->Supine: 2 person assist Bed Features/Set-up: Sit->Supine: Flat Skilled Rationale: Positioning, Sequencing, Verbal cues, Hand placement, Maintain precautions Transfer Assessment: Sit to Stand Transfer Laurel Level: Sit->Stand: minimum assist (75% patient effort) Assistive Device: Sit->Stand: 4 wheeled walker Skilled Rationale: Hand placement, Verbal cues, Maintain precautions Stand to Sit Transfer Laurel Level: Stand->Sit: minimum assist (75% patient effort) Assistive Device: Stand->Sit: 4 wheeled walker, armed chair Skilled Rationale: Positioning, Sequencing, Verbal cues, Hand placement, Maintain precautions Functional Mobility: Functional Mobility Laurel Level: Functional Mobility/Gait: minimum assist (75% patient effort) Physical Assist: Functional Mobility/Gait: chair follow, 1 person + 1 person to manage equipment Assistive Device: Functional Mobility/Gait: 4 wheeled walker Functional Mobility Distance: Distance needed for common household mobility Functional Mobility Deficits: Activity tolerance, Generalized weakness, Shortness of breath Functional Mobility Skilled Rationale: Breathing strategies, Technique of activity, Facilitate anterior shift, Facilitate postural control, Facilitate positioning Skilled Intervention/Details - Functional Mobility/Gait: Pt completed functional mobility in room/on unit (~75ft) to simulate home environment with light hands on assistance for balance and cues for pursed lip breathing techniques. Outcome Score(s): CURRENT [facility] Daily Activity Inpatient Short Form Putting on/Taking Off Lower Body Clothin - Total Assistance Bathin - A Lot of Assistance Toiletin - A Lot of Assistance Putting on/Taking Off Upper Body Clothin - A Lot of Assistance Groomin - A Little Assistance Eatin - No Assistance CURRENT [facility] Activity Raw Score: 14 CURRENT [facility] Activity Functional Limitation/Modifier: 59.67% Currently Impaired in Daily Activity- CK Assessment & Plan: Patient was admitted for CABG x2 on 11/13 and seen for therapy evaluation related to deficits in self-care tasks and mobility due to generalized weakness, activity tolerance deficits, and sternal precautions. Exam findings include impairments in: balance, endurance, ergonomics and body mechanics, transfers,strength. These impairments contribute to occupational performance limitations including bathing, dressing, toileting, functional mobility, ADL transfers. The following factors impact the plan of care: NSTEMI and HTN Patient will benefit from skilled occupational therapy to address these impairments, occupational performance limitations, and participation restrictions. Patient's rehab potential is: good, to achieve stated therapy goals. Planned Therapy Interventions (OT Eval): ADL retraining, balance training, bed mobility training, strengthening, transfer training, functional activity tolerance (fall prevention) Patient Instruction/Education this session: Patient Instruction: OT role and POC Plan for next session: Standing ADLs Acute OT Goals Plan of Care by Josselyn Gamble OT at 11/14/2022 11:15 AM Version 1 of 1 Problem: OT - Dressing Goal: Lower Body Dressing Description: Pt will complete LE dressing tasks with modified independence for improved ability to complete self-care activities. Outcome: Ongoing Problem: OT - ADLs Goal: Toileting Description: Pt will complete toileting task including clothing management with modified independence for improved ability to safely complete self-care activities. Outcome: Ongoing Goal: Bathing Description: Pt will perform full body bathing routine with modified independence for improved ability to complete self-care activities. Outcome: Ongoing Problem: OT - Balance Goal: Balance - Standing Description: Pt will perform 5 minutes of functional ADL task in standing with modified independence and good balance to promote safety and improved balance required for self-care activities. Outcome: Ongoing Problem: OT - Transfers Goal: Transfers Toilet/Bedside Commode Description: Pt will transfer to/from toilet/BSC with modified independence for improved ability tosafely complete ADLs. Outcome: Ongoing Problem: OT - Other Goal: Precaution Adherence Description: Pt will demonstrate 100% adherence to sternal precautions during all ADLs and transfers to promote safety during daily routine. Outcome: Ongoing Evaluating Therapist: Josselyn Gamble OT Additional Details: Co-evaluation/co-treatment performed?: Yes, simultaneous billable skilled care This co-treatment session performed between OT and PT was beneficial, necessary and provided distinct services in progressing this person's individual plan of care. Medical complexity with functionaldeficits that necessitate two skilled therapy disciplines working concurrently to optimize patient's progress towards each discipline's goals. This co-treatment was medically necessary due to patient's:Impaired balance and Postural control. Patient benefits from simultaneous treatment from another therapy discipline to maximize progress towards the following Occupational Therapy goals. I used facemask, protective eye shield, and gloves in today's patient interaction. OT Evaluation Complexity Occupational Profile and Client History: Moderate - expanded history Assessment of Occupational Performance: Moderate (3-5 performance deficits) Clinical Decision/Performance Deficits: Moderate (detailed assessments w/several treatment options) Time In: 0755 Time Out: 0825 Total Visit Time: 30 minutes Total Treatment Time (skilled, billable minutes): 30 minutes Patient location at end of session: bed with head of bed elevated Alarms on at end of session: RN aware Needs in reach. Upon discontinuation of Acute Care Occupational Therapy Services or patient discharge from the hospital this note represents the current Occupational Therapy Discharge Summary. * Comfort Gunn, PT - 11/14/2022 7:55 AM EST Acute Physical Therapy Evaluation Prior to Admission [facility] score(s): PRIOR LEVEL AM-PAC Mobility Raw Score: 24 Current AM-PAC score(s): CURRENT AM-PAC Mobility Raw Score: 17 Based on the above AM-PAC score(s) and PT clinical judgment, patient is a good candidate for discharge to (Anticipate progress to home with family support) Mobility equipment available at home: rollator ADL equipment available at home: hand held shower hose Equipment needed for discharge: to be determined Current therapy frequency recommendation in acute: Therapy Frequency: 5 times a week Precautions and Weightbearing Status: Existing Precautions/Restrictions: cardiac, strict sternal Telemetry, Chest tube, ECMO, Urinary catheter Patient Safety Communication Prior to Visit: Nursing Subjective: Pt agreeable to trial initial ambulation Patient received sitting in bedside chair no exit alarm on Pt agreeable to PT intervention. Pain: General Pain Documentation (Adult, OB, Peds) Presence of Pain: complains of pain/discomfort Pain Location: incisional DVPRS (Defense and Veterans Pain Rating Scale) DVPRS: Rest: 8- severe pain Home Setting Residence: House (1 level with basement) Lives With: spouse (works as a RN at a SNF. 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 Objective/Observation: Vitals/Vitals Responses to Treatment: Vitals HR (bpm) BP (mmHg) SpO2 (%) 76 112/71 (87) 98% O2 on 2L (READ-ONLY/RETIRED) Respiratory Status O2 Device: nasal cannula Flow (L/min): 2 Cognition Overall Cognitive Status: Within Functional Limits Arousal/Alertness: Appropriate responses to stimuli Orientation Level: Oriented X4 Following Commands: Follows all commands and directions without difficulty Safety Judgment: Good awareness of safety precautions Awareness of Errors: Good awareness of errors made Cognition Comments: Pt demonstrates good reception interviewer and recall of sternal precautions Vision Screen Currently wearing corrective lenses: Yes, Progressive lenses Visual Impairments Observed?: No Speech Speech: no gross deficits noted Hearing Hearing: no gross deficits noted Extremity Assessments: RUE Assessment RUE Assessment: Within Functional Limits LUE Assessment LUE Assessment: Within Functional Limits RLE Assessment RLE Assessment: Within Functional Limits LLE Assessment LLE Assessment: Within Functional Limits Sensation Overall Sensation: Intact Mobility Assessment: Sit to Supine Mobility Laurel Level: Sit->Supine: maximum assist (25% patient effort) Physical Assist: Sit->Supine: 2 person assist Bed Features/Set-up: Sit->Supine: Flat Skilled Rationale: Positioning, Sequencing, Verbal cues, Hand placement Balance: Sitting Balance Static Sitting-Level of Assistance: Supervision Dynamic Sitting-Level of Assistance: Standby Standing Balance Static Standing-Level of Assistance: Contact guard Dynamic Standing-Level of Assistance: Contact guard Standing-Balance Support: Rollator Skilled Rationale: Full extension to upright positioning/posture Transfer Assessment: Sit to Stand Transfer Laurel Level: Sit->Stand: minimum assist (75% patient effort) Skilled Rationale: Verbal cues, Hand placement, Maintain precautions, Facilitate anterior shift, Full extension to upright positioning/posture Skilled Intervention/Details: Sit->Stand: performed from chair x3reps throughout session Stand to Sit Transfer Laurel Level: Stand->Sit: minimum assist (75% patient effort) Skilled Rationale: Positioning, Verbal cues, Hand placement, Maintain precautions, Controlled descent for sitting, Cues for increased safety Skilled Intervention/Details: Stand->Sit: performed to chiar x3 reps Gait/Functional Mobility: Gait Assessment Laurel Level: Gait: contact guard assist Physical Assist: Gait: chair follow, 1 person + 1 person to manage equipment Assistive Device: Gait: rollator Ambulation Distance (Feet): 75 Gait Deviations Identified: decreased barron, decreased gait speed, decreased step length, festinating Gait Skilled Rationale: verbal, increase step length, upright posture, safety to avoid obstacles, proximity of assistive device Outcome Score(s): CURRENT AM-PAC Basic Mobility Inpatient Short Form Turning over in bed: 3 - A Little Assistance Sitting/standing from chair: 3 - A Little Assistance Moving from lying on back to sittin - A Little Assistance Moving to and from bed to chair: 3 - A Little Assistance Walk in hospital room: 3 - A Little Assistance Climbing 3-5 steps with a railin - A Lot of Assistance CURRENT AM-PAC Mobility Raw Score: 17 CURRENT AM-PAC Mobility Functional Limitation/Modifier: 50.57% Currently Impaired in Basic Mobility- CK Assessment & Plan: Laura Stephens is a 52 y.o. patient s/p CABG x2 (SNOWDEN-LAD, SVG-OM) Patient seen for therapy evaluation related to functional mobility assessment in setting of recent CABG with decreased strength, endurance, balance, coordination and increased pain contributing to impaired functional mobility and decreased independence. Exam findings include impairments in: Strength, Balance, Coordination, Posture, Transfers, Gait/Locomotion, Aerobic capacity/endurance. These impairments contribute to functional limitations including Ambulation/locomotion pain, Decreased ambulation distance/endurance, Difficulty stair climbing/descent, Increased fall risk, Difficulty with bed mobility, Difficulty with transfers, Limited standingtolerance, Decreased functional mobility. Current clinical presentation is Evolving - changing/inconsistent clinical characteristics (Moderate). Patient history factors impacting Plan Of Care include none. Patient will benefit from skilled physical therapy to address these impairments, functional limitations, and participation restrictionsand has good rehab potential to achieve therapy goals. Planned Therapy Interventions: balance training, bed mobility training, endurance, functional activity tolerance, gait training, strengthening, transfer training Patient Instruction/Education this session: Safe functional mobility and Gait training Plan for next session: Progress gait training Acute PT Goals Plan of Care by Comfort Gunn PT at 11/14/2022 7:55 AM Version 1 of 1 Problem: PT - Mobility Goal: Ambulation Description: Pt will ambulate 250 feet with least restrictive device with modified independence to improve ability to navigate home environment. Outcome: Ongoing Goal: Stairs Description: Pt will ascend/descend 1 stairs with railings with standby assistance with least restrictive device to improve ability to perform functional mobility necessary in recommended discharge environment. Outcome: Ongoing Problem: PT - Transfers Goal: Supine <-> Sit Description: Pt will perform bed mobility with flat bed & no rail with modified independence inorder to improve functional mobility and safety. Outcome: Ongoing Goal: Sit <-> Stand Description: Pt will perform sit to/from stand transfers with modified independence with least restrictive device in order to improve functional mobility and safety. Outcome: Ongoing Goal: Other Description: Pt will maintain sternal precautions 100% of the time during functional mobility and ambulation without need for cues. Outcome: Ongoing Evaluating Therapist: Comfort Gunn PT Additional Details: Co-evaluation/co-treatment performed?: Yes, simultaneous billable skilled care This co-evaluation session performed between PT and OT was beneficial, necessary and provided distinct services in establishing this person's individual plan of care. Medical complexity with functional deficits necessitated two skilled therapy disciplines working concurrently to determine each discipline's goals. This co-treatment was medically necessary due to patient's: Coordination issues and activity tolerance I was assisted by Josselyn MAURO for today's session. and I used facemask, protective eye shield, and gloves in today's patient interaction. Evaluation Complexity Components History: Moderate (1-2 personal factors and/or comorbidities) Body Systems Review: Moderate (Addressing a total of 3 or more elements) Clinical Presentation: Evolving - changing/inconsistent clinical characteristics (Moderate) Clinical Decision Making: Moderate Time In: 0755 Time Out: 0825 Total Visit Time: 30 minutes Total Treatment Time (skilled, billable minutes): 30 minutes Patient location at end of session: bed with head of bed elevated Alarms on at end of session: none Needs in reach. Upon discontinuation of Acute Care Physical Therapy Services or patient discharge from the hospitalthis note represents the current Physical Therapy Discharge Summary. * Derek Jara MD, PhD - 11/14/2022 7:36 AM EST I, Dr. Derek Jara, have independently interviewed and examined Mr. Stephens The EMR was reviewed. I discussed the plan of care with the residents/fellows/advanced practice providers. I have reviewedtheir note and agree with the findings and plan of care as documented. Doing well post CABG x 2 Pathway Plan to remove wires tomorrow Clopidogrel for NSTEMI after wires out Remove cordis, art line, sanabria Diuresis today -- Derek Jara MD, PhD Office: [phone] Pager: [phone] * Alisa Mayers RCP - 11/13/2022 11:05 PM EST Laura Stephens is a 52 y.o. male with a past medical history of: Past Medical History: Diagnosis Date Smoker No past surgical history on file. Social History Tobacco Use Smoking status: Every Day Packs/day: 1.00 Years: 26.00 Pack years: 26.00 Types: Cigarettes Smokeless tobacco: Never Substance Use Topics Alcohol use: Yes Alcohol/week: 7.0 standard drinks Types: 7 Cans of beer per week Full Code No active isolations Recent Vitals: Blood pressure (!) 157/98, pulse 77, temperature 98.4 F (36.9 C), resp. rate 13, height 1.829 m (6'0.01), weight 88.2 kg (194 lb 6.4 oz), SpO2 100 %. Recent ABG/VBG: pH/PCO2/PO2/HCO3: 7.36/42/94/24 (11/13 2199) Home Medications: None Respiratory Plan of Care: Pt extubated to 5L, O2 Sat 98%. The patients respiratory plan of care was updated by Alisa Mayers RCP 11/13/2022 11:05 PM * Alvaro Arroyo MD - 11/13/2022 9:47 PM EST CVICU Attending Critical Care NoteASSESSMENT AND PLAN ASSESSMENT AND PLAN Laura Stephens is a 52 y.o. patient s/p CABGx2 (SNOWDEN-LAD, SVG-OM with sternal plating by Derek Jara MD, PhD on surgery date 11/13/2022. Important points to emphasize in the critical care management are: Low cardiac output syndrome - wean pressors for MAP > 65 - intact BiV function - ntg gtt x24h - NSTEMI-- will need plavix Acute blood loss anemia - monitor chest tube output, coags wnl Post op respiratory insufficiency - wean to extubate Monitor for signs EtOH withdrawal RELEVANT INFORMATION VITALS: Blood pressure (!) 157/98, pulse 79, temperature 98.2 F (36.8 C), resp. rate 12, height 1.829 m (6'0.01), weight 88.2 kg (194 lb 6.4 oz), SpO2 99 %. pH/PCO2/PO2/HCO3: 7.39/41/127/25 (11/13 1950) Line necessity: vasoactive infusions Sanabria necessity:strict I's/O's Airway necessity: mechanical ventilation I spent 32 minutes providing critical care services and making complex medical decisions for this critically ill patient on behalf of Derek Jara MD, PhD. This time includes examining the patients, reviewing patient data, discussions with other providers and speaking to family members. This time does not include performing any procedures. I have discussed this patient with the medical student / resident and agree with their assessment, plan and decision making or have made amendments whereappropriate. Alvaro Friend MD 11/13/2022 9:47 PM * Kristin Devine PA-C - 11/13/2022 7:44 PM EST CARDIAC SURGERY [facility] IMMEDIATE POST OPERATIVE NOTE Laura Stephens is a 52 y.o. male with a PMH of ETOH use and nicotine dependence who presented to an OSH with chest pain that radiated to the left shoulder, SOB, fatigue and nausea while shoveling snow. He was found to have an NSTEMI at OSH with left main disease on LHC. He was transferred to [facility] forsurgical workup. He was on a Heparin infusion pre-op. Date of Surgery: 11/13/2022 Procedure: CABG x2 (SNOWDEN-LAD, SVG-OM) Surgeon: Dr. Derek Jara Procedure complications: sternal plating - plating able to be cut with wire cutters if needed Intra-op Fluids: ~2L of fluid Intra-op Blood Products: Cell saver Medications EPINEPHrine (ADRENALIN) infusion heparin infusion 17 Units/kg/hr (11/13/22 0913) nitroGLYCERIN infusion norepinephrine (LEVOPHED) infusion vasopressin (VASOSTRICT) IV infusion PHYSICAL EXAM Vitals: Blood pressure (!) 157/98, pulse 56, temperature 97.9 F (36.6 C), temperature source Oral, resp. rate 21, height 1.829 m (6' 0.01), weight 88.2 kg (194 lb 6.4 oz), SpO2 99 %. General appearance: appears stated age Lungs: clear to auscultation bilaterally Heart: regular rate and rhythm, S1, S2 normal, no murmur, click, rub or gallop Abdomen: soft, non-tender. Bowel sounds normal. No masses, no organomegaly Extremities: extremities normal, atraumatic, no cyanosis or edema; vilma wrap on LLE Pulses: 2+ and symmetric Skin: MSI dressing in place Neurologic: Grossly normal ASSESSMENT AND PLAN Post-op Surgical Plan: Wean vent to extubate Monitor chest tube output Fluid resuscitation as needed Replace electrolytes to keep K > 4, Mg > 2, ionized calcium > 4.8. Goal extubation time: 0130 (11/14/22) Post-op [facility] Findings: Normal biventricular function per report. Awaiting final read of echo Chest Tubes - x1 LP, x1 RP, x2 mediastinal, x1 superficial amy above sternal plating Pacing Wires - Ventricular Need for Anti-platelet : Plavix Quality Review Checklist - DVT Prophylaxis: Heparin Subcutaneous tomorrow Stress PPI Prophylaxis: Nexium Lines / Access: PIVs SANDRA Central Venous Catheter Arterial Line VALORIE Devine PA-C 11/13/2022, 7:44 PM Cardiac Surgery [facility] Phone #: [phone] * Derek Jara MD, PhD - 11/13/2022 7:11 AM EST OPEN HEART SURGERY - STAFF Laura Stephens was seen and evaluated. The EMR and events from the last 12-24 hours reviewed. OBJECTIVE FINDINGS: Lab Results Component Value Date WBC 9.58 11/13/2022 HGB 13.6 11/13/2022 PLATELET 220 11/13/2022 PTT 103.4 (H) 11/13/2022 INR 1.0 11/09/2022 SODIUM 139 11/13/2022 POTASSIUM 4.3 11/13/2022 CHLORIDE 106 11/13/2022 CO2 21 11/13/2022 BUN 19 11/13/2022 CREATSERUM 1.20 11/13/2022 CALCIUM 8.9 11/09/2022 MAGNESIUM 2.1 11/09/2022 PHOSPHORUS 4.5 11/09/2022 AST 22 11/09/2022 ALKPHOS 53 11/09/2022 BILITOTAL 0.4 11/09/2022 BILIDIRECT <0.1 11/09/2022 ALBUMIN 3.9 11/09/2022 PREALBUMIN 28 11/09/2022 HGBA1C 6.0 (H) 11/09/2022 Vital Signs (24hrs): Temp: [97.9 F (36.6 C)-98.7 F (37.1 C)] 98.2 F (36.8 C) Pulse (Heart Rate): [59-69] 59 Resp Rate: [14-16] 14 BP: (117-127)/(59-83) 123/67 O2 Sat (%): [86 %-96 %] 93 % Pulmonary/Cardiac Hemodynamics Pulse (Heart Rate): 59 Body mass index is 26.26 kg/m . Patient status: stable Alertness:alert HEENT: anicteric Lungs: unlabored Heart: regular Abdomen: benign Skin: dry IMPRESSION & RECOMMENDATION: Laura Stephens is a 52 y.o. 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 On heparin gtt Echo and C images reviewed Plan to OR today for CABG x 2 (LAD and OM as targets) All questions answered with him, his and family at the bedside. -- Derek Jara MD, PhD Office: [phone] Pager: [phone] * Andrew Lawson APRN-REVERSE ENGINEER - 11/12/2022 11:20 AM EST CARDIAC SURGERY DAILY PROGRESS NOTE HISTORY OF PRESENT ILLNESS: Laura Stephens is a 52 y.o. male with a past medical history of ETOH use and nicotine dependence. He presented to [facility] with symptoms of Chest pain radiating to his left shoulder and down left arm, shortness of breath, transient nausea, and fatigue associated with shoveling snow at work the morning of 11/08/2022. NSTEMI at OSH, normal echo, LHC with severe left main CAD for which patient was placed on a heparin infusion and transferred to [facility] for surgical evaluation and ongoing management. Currently asymptomatic. 24-hour interval history: No acute issues overnight Plan for 11/12/2022: - NPO at midnight. - continue heparin gtt until production supervisor to OR - OR tomorrow - second case OBJECTIVE IMAGING: Radiological Studies over last 24 hours reviewed CXR 11/09/22: Deformity of the right fifth rib, presumably posttraumatic. No other abnormality. VITALS: Blood pressure 118/59, pulse 60, temperature 97.9 F (36.6 C), temperature source Oral, resp. rate 16, height 1.829 m (6' 0.01), weight 87.9 kg (193 lb 11.2 oz), SpO2 95 %. PHYSICAL EXAM: General: resting comfortably in bed - family at bedside HEENT: normocephalic. Atraumatic. PERRL Respiratory: clear to auscultation bilaterally with diminished bases. Breathing unlabored Cardiovascular: s1, s2 noted. No murmur, rub or gallops noted Abdomen: soft, non distended. Non tender to palpation. Active bowel sounds Neurological: alert and oriented x 4. Moves all extremities. Strength equal. Extremities: +1 BLE edema. Skin: clean, dry and intact. Psychosocial: mood appropriate for situation ASSESSMENT & PLAN Surgical Plan: Laura Stephens is a 52 year old male who presented to OSH 11/08/2022 with chest pain on exertion while shoveling snow. Diagnosed with NSTEMI and LHC revealed Left main CAD. CABG evaluation. Neurological - No acute issues Cardiovascular - NSTEMI/CAD: Metoprolol 25mg Q12H Aspirin 81mg daily Atorvastatin 80mg daily Amiodarone prophy to continue Trop peaked at 237 Heparin gtt NTG SL PRN Does not take any home medications Preoperative work up -PFTs complete -CT chest -Carotid US -Vein mapping Pulmonary - No acute issues, on room air Gastrointestinal - No acute issues at this time Renal - No acute issues. Making adequate urine. Endocrinology - Pre Diabetes Lab Results Component Value Date HGBA1C 6.0 (H) 11/09/2022 Plan: - sliding scale insulin per protocol following surgery Hematology - No acute issues. - Hemoglobin stable. Lab Results Component Value Date HGB 13.5 11/12/2022 HGB 12.9 (L) 11/11/2022 HGB 13.1 (L) 11/10/2022 No indication for pre-op iron. Infectious Disease - No concerns. Nicotine DependenceActive smoker: (POA) 26 years x 1ppd PFTs ordered Discussed smoking cessation as above. Provide education materials Spent 3-5 minutes counseling on this topic Outpatient cessation resources to be discussed at later date Nicotine patch ordered ETOH Abuse: (POA) Reported ~ 6 beers a day Patient reports no withdraw symptoms with periods of ETOH consumption cessation. Monitor for evidence of withdraw - patient instructed on symptoms and to report if any - verbalizedunderstanding. If any concerns for withdrawal will initiate phenobarbital protocol with taper No signs/symptoms of withdrawal at this time Quality Review Checklist - Diet: Current Diet Orders Procedures DIET HEART HEALTHY - 4 GM SODIUM Oral Supplement Standing Status: Standing Number of Occurrences: 1 Order Specific Question: Additional Modifier: Answer: Oral Supplement DVT Prophylaxis: Heparin Gtt Stress PPI Prophylaxis: Not indicated per protocol Lines / Access: PIVs Therapy Plans: PT/OT post op DAWOOD Redmond Cardiac [facility] Phone#[phone] * DAWOOD Redmond - 11/11/2022 12:15 PM EST CARDIAC SURGERY DAILY PROGRESS NOTE HISTORY OF PRESENT ILLNESS: Laura Stephens is a 52 y.o. male with a past medical history of ETOH use and nicotine dependence. He presented to [facility] with symptoms of Chest pain radiating to his left shoulder and down left arm, shortness of breath, transient nausea, and fatigue associated with shoveling snow at work the morning of 11/08/2022. NSTEMI at OSH, normal echo, LHC with severe left main CAD for which patient was placed on a heparin infusion and transferred to [facility] for surgical evaluation and ongoing management. Currently asymptomatic. 24-hour interval history: No acute issues overnight Plan for 11/11/2022: - continue heparin gtt - OR for second case on Sunday OBJECTIVE IMAGING: Radiological Studies over last 24 hours reviewed CXR 11/09/22: Deformity of the right fifth rib, presumably posttraumatic. No other abnormality. VITALS: Blood pressure 130/69, pulse 61, temperature 98.1 F (36.7 C), temperature source Axillary, resp. rate 12, height 1.829 m (6' 0.01), weight 89.2 kg (196 lb 10.4 oz), SpO2 97 %. PHYSICAL EXAM: General: resting comfortably in bed - no acute distress HEENT: normocephalic. Atraumatic. PERRL Respiratory: clear to auscultation bilaterally with diminished bases. Breathing unlabored Cardiovascular: s1, s2 noted. No murmur, rub or gallops noted Abdomen: soft, non distended. Non tender to palpation. Active bowel sounds Neurological: alert and oriented x 4. Moves all extremities. Strength equal. Extremities: +1 BLE edema. Skin: clean, dry and intact. Psychosocial: mood appropriate for situation ASSESSMENT & PLAN Surgical Plan: Laura Stephens is a 52 year old male who presented to OSH 11/08/2022 with chest pain on exertion while shoveling snow. Diagnosed with NSTEMI and LHC revealed Left main CAD. CABG evaluation. Neurological - No acute issues Cardiovascular - NSTEMI/CAD: Metoprolol 25mg Q12H Aspirin 81mg daily Atorvastatin 80mg daily Start pre-op amio load tomorrow Trop peaked at 237 Heparin gtt NTG SL PRN Does not take any home medications Preoperative work up -PFTs complete -CT chest -Carotid US -Vein mapping Pulmonary - No acute issues, on room air Gastrointestinal - Obesity - Body mass index is 26.66 kg/m .; Will educate regarding healthy living choices Acute Post-Operative Constipation - Bowel Regimen -Last Bowel Movement: 11/09/22 Renal - No acute issues. Making adequate urine. Endocrinology - Pre Diabetes Lab Results Component Value Date HGBA1C 6.0 (H) 11/09/2022 Plan: - sliding scale insulin per protocol following surgery Hematology - No acute issues. - Hemoglobin stable. Lab Results Component Value Date HGB 12.9 (L) 11/11/2022 HGB 13.1 (L) 11/10/2022 HGB 13.4 11/09/2022 No indication for pre-op iron. Infectious Disease - No concerns. Nicotine DependenceActive smoker: (POA) 26 years x 1ppd PFTs ordered Discussed smoking cessation as above. Provide education materials Spent 3-5 minutes counseling on this topic Outpatient cessation resources to be discussed at later date Nicotine patch ordered ETOH Abuse: (POA) Reported ~6 beers a day Patient reports no withdraw symptoms with periods of ETOH consumption cessation. Monitor for evidence of withdraw - patient instructed on symptoms and to report if any - verbalizedunderstanding. If any concerns for withdrawal will initiate phenobarbital protocol with taper Quality Review Checklist - Diet: Current Diet Orders Procedures DIET HEART HEALTHY - 4 GM SODIUM Oral Supplement Standing Status: Standing Number of Occurrences: 1 Order Specific Question: Additional Modifier: Answer: Oral Supplement DVT Prophylaxis: Heparin Gtt Stress PPI Prophylaxis: Not indicated per protocol Lines / Access: PIVs Therapy Plans: PT/OT post op DAWOOD Redmond [facility] Phone#[phone] * DAWOOD Redmond - 11/10/2022 12:15 PM EST CARDIAC SURGERY DAILY PROGRESS NOTE HISTORY OF PRESENT ILLNESS: Laura Stephens is a 52 y.o. male with a past medical history of ETOH use and nicotine dependence. He presented to [facility] with symptoms of Chest pain radiating to his left shoulder and down left arm, shortness of breath, transient nausea, and fatigue associated with shoveling snow at work the morning of 11/08/2022. NSTEMI at OSH, normal echo, LHC with severe left main CAD for which patient was placed on a heparin infusion and transferred to [facility] for surgical evaluation and ongoing management. Currently asymptomatic. 24-hour interval history: No acute issues overnight Plan for 11/10/2022: - complete imaging and work-up - continue heparin gtt - OR for second case on Sunday OBJECTIVE IMAGING: Radiological Studies over last 24 hours reviewed CXR 11/09/22: Deformity of the right fifth rib, presumably posttraumatic. No other abnormality. VITALS: Blood pressure 117/71, pulse 65, temperature 97.8 F (36.6 C), temperature source Oral, resp. rate 16, height 1.829 m (6' 0.01), weight 89.1 kg (196 lb 6.9 oz), SpO2 94 %. PHYSICAL EXAM: General: sitting in the chair. No acute distress noted HEENT: normocephalic. Atraumatic. PERRL Respiratory: clear to auscultation bilaterally with diminished bases. Breathing unlabored Cardiovascular: s1, s2 noted. No murmur, rub or gallops noted Abdomen: soft, non distended. Non tender to palpation. Active bowel sounds Neurological: alert and oriented x 4. Moves all extremities. Strength equal. Extremities: +1 BLE edema. Skin: clean, dry and intact. Psychosocial: mood appropriate for situation ASSESSMENT & PLAN Surgical Plan: Laura Stephens is a 52 year old male who presented to OSH 11/08/2022 with chest pain on exertion while shoveling snow. Diagnosed with NSTEMI and LHC revealed Left main CAD. CABG evaluation. Neurological - No acute issues Cardiovascular - NSTEMI/CAD: Metoprolol 25mg Q12H Aspirin 81mg daily Atorvastatin 80mg daily Start pre-op amio load tomorrow Trop peaked at 237 Heparin gtt NTG SL PRN Does not take any home medications Preoperative work up -PFTs complete -CT chest -Carotid US -Vein mapping Pulmonary - No acute issues, on room air Gastrointestinal - Obesity - Body mass index is 26.63 kg/m .; Will educate regarding healthy living choices Acute Post-Operative Constipation - Bowel Regimen -Last Bowel Movement: 11/09/22 Renal - No acute issues. Making adequate urine. Endocrinology - Stress Hyperglycemia - A1c 6.0. SSI. Hematology - No acute issues. Hgb 13.4. No indication for pre-op iron. Infectious Disease - No concerns. Nicotine DependenceActive smoker: (POA) 26 years x 1ppd PFTs ordered Discussed smoking cessation as above. Provide education materials Spent 3-5 minutes counseling on this topic Outpatient cessation resources to be discussed at later date Nicotine patch ordered ETOH Abuse: (POA) Reported ~6 beers a day Patient reports no withdraw symptoms with periods of ETOH consumption cessation. Monitor for evidence of withdraw - patient instructed on symptoms and to report if any - verbalizedunderstanding. If any concerns for withdrawal will initiate phenobarbital protocol with taper Quality Review Checklist - Diet: Current Diet Orders Procedures DIET HEART HEALTHY - 4 GM SODIUM Oral Supplement Standing Status: Standing Number of Occurrences: 1 Order Specific Question: Additional Modifier: Answer: Oral Supplement DVT Prophylaxis: Heparin Gtt Stress PPI Prophylaxis: Not indicated per protocol Lines / Access: PIVs Therapy Plans: PT/OT post op DAWOOD Redmond [facility] Phone#[phone] * Wendie Frankel PA-C - 11/09/2022 3:43 PM EST CARDIAC SURGERY DAILY PROGRESS NOTE HISTORY OF PRESENT ILLNESS: Mr. Stephens is a 52 y.o. male with a past medical history of ETOH use and nicotine dependence. He presented to [facility] with symptoms of Chest pain radiating to his left shoulder anddown left arm, shortness of breath, transient nausea, and fatigue associated with shoveling snow atwork the morning of 11/08/2022. NSTEMI at OSH, normal echo, LHC with severe left main CAD for whichpatient was placed on a heparin infusion and transferred to [facility] for surgical evaluation and ongoing management. Currently asymptomatic. 24-hour interval history: No acute events. Denies chest pain, shortness of breath, nausea. Plan for 11/09/2022: -CABG work up: carotids, vein mapping, CT chest w/o -continue hep gtt -tentative plan for OR Sunday OBJECTIVE IMAGING: Radiological Studies over last 24 hours reviewed CXR 11/09/22: Deformity of the right fifth rib, presumably posttraumatic. No other abnormality. VITALS: Blood pressure 126/75, pulse 62, temperature 98.8 F (37.1 C), temperature source Oral, resp. rate 16, height 1.829 m (6' 0.01), weight 89.8 kg (198 lb), SpO2 95 %. PHYSICAL EXAM: GENERAL: Awake, alert, sitting up in bed, appears stated age, no acute distress HEENT: AT, NC, trachea midline HEART: NSR, +S1+S2, No murmurs LUNG: clear to auscultation bilaterally, breathing comfortably on RA ABD: Soft, Non-Distended, Non-Tender. Normoactive bowel sounds. EXT: Warm, no cyanosis, no Edema in bilateral lower extremities. PULSE: Palpable Bilateral Radial & DP Pulses MUSC: Moves all 4 Extremities NEURO: Ox4, PERRL, EOMI, face symmetric, speech clear, moves all extremities full strength PSYCH: Appropriate for the clinical situation ASSESSMENT & PLAN Surgical Plan: Laura Stephens is a 52 year old male who presented to OSH 11/08/2022 with chest pain on exertion while shoveling snow. Diagnosed with NSTEMI and LHC revealed Left main CAD. CABG evaluation. Neurological - No acute issues Cardiovascular - NSTEMI/CAD: Metoprolol 25mg Q12H Aspirin 81mg daily Atorvastatin 80mg daily Start pre-op amio load tomorrow Trop peaked at 237 Heparin gtt NTG SL PRN Does not take any home medications Preoperative work up -PFTs complete -CT chest -Carotid US -Vein mapping Pulmonary - No acute issues, on room air Gastrointestinal - Obesity - Body mass index is 26.85 kg/m .; Will educate regarding healthy living choices Acute Post-Operative Constipation - Bowel Regimen -Last Bowel Movement: 11/08/22 Renal - No acute issues. Making adequate urine. Endocrinology - Stress Hyperglycemia - A1c 6.0. SSI. Hematology - No acute issues. Hgb 13.4. No indication for pre-op iron. Infectious Disease - No concerns. Nicotine DependenceActive smoker: (POA) 26 years x 1ppd PFTs ordered Discussed smoking cessation as above. Provide education materials Spent 3-5 minutes counseling on this topic Outpatient cessation resources to be discussed at later date Nicotine patch ordered ETOH Abuse: (POA) Reported ~6 beers a day Patient reports no withdraw symptoms with periods of ETOH consumption cessation. Monitor for evidence of withdraw Quality Review Checklist - Diet: Current Diet Orders Procedures DIET HEART HEALTHY - 4 GM SODIUM Standing Status: Standing Number of Occurrences: 1 DVT Prophylaxis: Heparin Gtt Stress PPI Prophylaxis: Not indicated per protocol Lines / Access: PIVs Therapy Plans: PT/OT post op Wendie Frankel PA-C Cardiac Surgery [facility] #[id number] * Marilin Bull RN - 11/09/2022 12:43 PM EST Focused Assessment for Discharge Planning Patient is here for cardiac surgery. Initial Discharge Planning Anticipated discharge disposition: Home Transportation Available for Discharge: Family or Friend Anticipated DME: none Anticipated Services at Discharge: Outpatient follow up Patient Assessment Completed: Focused Advanced Care Planning Assessment Advanced Care Planning Has the patient completed Advance Directives?: Not Completed Referral to Social Work for Advance Care Planning? : Patient Declines HCPOA Agent(s): 1. na 2. na Legal Next of Kin: 1. Chyna Stephens spouse [phone] 2. na Financial Resources Insurance: yes Prescription Coverage: yes Resources Needed: no Resources Provided: none Living Environment and Support System Patient lives with his and 2 children (teenage). He is independent and working. Patient has not seen his PCP in 2 years. Patient Resources Prior to Admission Post-acute Services: none Community Resources: none DME: none Patient's goal for discharge is home. Marilin Hill RN, BSN Clinical Internal Revenue Service Agent [facility] History and physical note* Andrew Lawson, APPLICATION SUPPORT CONSULTANT-REVERSE ENGINEER - 11/12/2022 11:25 AM EST PERIOPERATIVE SURGICAL HISTORY AND PHYSICAL UPDATE Pre-op Diagnoses: CAD (coronary artery disease) [I25.10] Procedure(s): CABG W/ ARTERY GRAFT OPEN Surgeon(s): Surgeon(s) and Role: * Derek Jara MD, PhD - Primary History and Physical Update: Mr. Stephens is a 52 y.o. male with a history of CAD who presented as outside transfer. Nicotine Dependence Use per Day: 20 Patient is ready to quit Quit Date: 11/08 Discussed pharmacotherapy. Offered Rx to be sent to pharmacy of choice. We discussed health risks and resources. Offered referral to [facility] Smoking Cessation clinic (AMB REFERRAL TO SMOKING CESSATION) Spent 3-5 minutes counseling on this topic Blood pressure 118/59, pulse 60, temperature 97.9 F (36.6 C), temperature source Oral, resp. rate 16, height 1.829 m (6' 0.01), weight 87.9 kg (193 lb 11.2 oz), SpO2 95 %. General appearance: alert, cooperative, appears stated age Lungs: clear to auscultation bilaterally Heart: regular rate and rhythm, S1, S2 normal, no murmur, click, rub or gallop Abdomen: soft, non-tender. Bowel sounds normal. No masses, no organomegaly Extremities: extremities normal, atraumatic, no cyanosis or edema, Normal ROM. Pulses: 2+ and symmetric Skin: Skin color, texture, turgor normal. No rashes or lesions Neurologic: Grossly normal Psych: appropriate mood and affect for clinical situation AMIOdarone 400 mg Oral TID aspirin 81 mg Oral Daily Atorvastatin 80 mg Oral Every dinner Metoprolol 25 mg Oral Q12H nicotine 1 patch Transdermal Q24H And VERIFY LINKED PATCH PLACEMENT Other Q12H Polyethylene glycol 17 g Oral Daily I have reviewed this patient's medical, surgical and other pertinent history, and I have updated the medication and allergy information in the computerized patient record. I have examined the patient, reviewed the previous H&P completed on date (11/09/22) and there are no changes. Pre-operative Beta- Blockade (hold for Severe , HR <60 and SBP <90) for non-transplants: Medication: Pre-operative Beta Braydon taken 24hrs prior to surgery Time taken:scheduled for 0900 on 11/13 (required) Pre-operative aspirin: Dose: 81mg, Time Taken scheduled for 0900 on 11/13 (required) Pre-operative Statin: Patient is currently taking a Statin medication: Y (Y/N) Pre-operative Anemia screening: Complete: No, Hgb is 13. No indication for anemia workup Today's surgical history and physical update was completed by DAWOOD Redmond. 11/12/2022, 11:25 AM * DAWOOD Queen - 11/09/2022 12:26 AM EST CARDIAC SURGERY HISTORY AND PHYSICAL HPI Mr. Stephens is a 52 y.o. male with a past medical history of ETOH use and nicotine dependence. He presented to [facility] with symptoms of Chest pain radiating to his left shoulder anddown left arm, shortness of breath, transient nausea, and fatigue associated with shoveling snow atwork the morning of 11/08/2022. EMS was called and patient transported to ED for further evaluation. Patient states his symptoms improved during transport and reports no chest pain or other symptoms on arrival to [facility]. Patient uncertain but may have experienced similar but less severe symptoms with exertion in past. At OSH ED ECG SR with non-specific T wave abnormality. His initial HS troponin was negative but subsequent was elevated and peaked at 104. Echocardiogram at OSH revealed LVEF 55%,normal RV function, and no valve disease. LHC at OSH revealed CAD for which patient was placed on aheparin infusion and transferred to [facility] for surgical evaluation and ongoing management. Nicotine Dependence Use per Day: 1 pack per day x26 years Patient is ready to quit Quit Date: 11/09/2022 Discussed inpatient pharmacotherapy. Patient to report symptoms and will address as needed. We discussed health risks and resources. Outpatient resources to be discussed at later date. Spent 3-5 minutes counseling on this topic REVIEW OF SYSTEMS: Denies chest pain, diaphoresis, syncope, pre-syncope, fevers, chills, night sweats at this time.. All other review of systems negative, unless otherwise stated. PAST MEDICAL HISTORY Past Medical History: Diagnosis Date Smoker No past surgical history on file. FAMILY HISTORY Father: Prostate Cancer, Skin Cancer, CAD Mother: Hypertension, hyperlipidemia Grandfather: CAD SOCIAL HISTORY reports that he has been smoking cigarettes. He has a 26.00 pack-year smoking history. He has neverused smokeless tobacco. He reports current alcohol use of about 7.0 standard drinks per week. He reports that he does not use drugs. Social History Tobacco Use Smoking Status Every Day Packs/day: 1.00 Years: 26.00 Pack years: 26.00 Types: Cigarettes Smokeless Tobacco Never Social History Substance and Sexual Activity Alcohol Use Yes Alcohol/week: 7.0 standard drinks Types: 7 Cans of beer per week ALLERGIES No Known Allergies MEDICATIONS Current Facility-Administered Medications: Acetaminophen (TYLENOL) tablet 325 mg, 325 mg, Oral, Q6H PRN, DAWOOD Queen alum/mag hydrox.-simethicone oral suspension 30 mL, 30 mL, Oral, Q6H PRN, DAWOOD Queen aspirin chewable tablet 81 mg, 81 mg, Oral, Daily, DAWOOD Queen Atorvastatin (LIPITOR) tablet 80 mg, 80 mg, Oral, Every dinner, DAWOOD Queen Heparin 25,000 units in dextrose 5% 250 mL premix infusion, 0-30 Units/kg/hr (Dosing Weight), Intravenous, Continuous, DAWOOD Queen Magnesium sulfate 4 g in sterile water 50 ml premix IVPB, 4 g, Intravenous, As directed PRN, DAWOOD Queen Metoprolol (LOPRESSOR) tablet 25 mg, 25 mg, Oral, Q12H, Forrest Ramirez, MIGNON-CHRISTOPHE nitroGLYCERIN (NITROSTAT) tablet SL 0.4 mg, 0.4 mg, Sublingual, Q5 MIN PRN, Forrest Ramirez, MIGNON-CHRISTOPHE Polyethylene glycol (MIRALAX) packet 17 g, 17 g, Oral, Daily, Forrest Ramirez, MIGNON-CHRISTOPHE Potassium Bicarb-Citric Acid (Effer-K) 20 MEQ effervescent tablets for oral solution 20 mEq, 20 mEq, Oral, As directed PRN, Forrest Ramirez, APPLICATION SUPPORT CONSULTANT-REVERSE ENGINEER Potassium Bicarb-Citric Acid (Effer-K) 20 MEQ effervescent tablets for oral solution 20-60 mEq, 20-60 mEq, Oral, As directed PRN, Forrest Ramirez, APPLICATION SUPPORT CONSULTANT-REVERSE ENGINEER Potassium chloride (K-DUR) tablet ER 20 mEq, 20 mEq, Oral, As directed PRN, Forrest Ramirez, APPLICATION SUPPORT CONSULTANT-REVERSE ENGINEER Potassium chloride (K-DUR) tablet ER 20-60 mEq, 20-60 mEq, Oral, As directed PRN, Forrest Ramirez, MIGNON-REVERSE ENGINEER Senna (SENOKOT) tablet 8.6 mg, 8.6 mg, Oral, Q12H PRN OR Senna (SENOKOT) tablet 8.6 mg, 8.6 mg,Per NG tube, Q12H PRN, Forrest Ramirez, MIGNON-CHRISTOPHE Sodium chloride 0.9% IV solution 250 mL, 250 mL, Intravenous, PRN, Forrest Ramirez, APPLICATION SUPPORT CONSULTANT-REVERSE ENGINEER aspirin 81 mg Oral Daily Atorvastatin 80 mg Oral Every dinner Metoprolol 25 mg Oral Q12H Polyethylene glycol 17 g Oral Daily PHYSICAL EXAM VITALS: Blood pressure 126/73, pulse 68, temperature 98.1 F (36.7 C), resp. rate 16, height 1.829 m (6' 0.01), weight 89.8 kg (198 lb), SpO2 96 %. WEIGHT: Wt Readings from Last 1 Encounters: 11/09/22 89.8 kg (198 lb) General appearance: alert, cooperative, appears stated age Lungs: clear/diminished bilaterally Heart: regular rate and rhythm, no murmur noted, distant heart sounds Abdomen: soft, rounded, non-tender, hyperactive bowel sounds Extremities: no lower extremity edema. Skin: Warm and dry, intact Musculoskeletal: gait is coordinated and symmetrical Pulses: Neurologic: no gross focal deficits noted. Psych: appropriate mood and affect for clinical situation DIAGNOSTIC RESULTS/PROCEDURES [facility] from [facility] to be uploaded for review PFTs ordered Labs: Results for orders placed or performed during the hospital encounter of 11/08/22 XR CHEST PORTABLE Result Value Ref Range BSA 2.12 m2 CBC AND ELECTRONIC DIFF Result Value Ref Range WBC Count 9.12 3.73 - 10.10 K/uL RBC Count 4.52 4.38 - 5.83 M/uL Hemoglobin 13.4 13.4 - 16.8 g/dL Hematocrit 39.7 39.6 - 48.8 % Mean Cell Volume 87.8 79.0 - 94.5 fL Mean Cell Hgb 29.6 26.1 - 33.3 pg Mean Cell Hgb Conc 33.8 31.9 - 36.5 g/dL RBC Distribution 14.5 (H) 10.9 - 14.3 % Platelet Count 202 146 - 337 K/uL Mean Platelet Volume 10.3 8.7 - 12.3 fL DIFF STATUS Electronic Differential Segs + Bands Auto 39.5 % Immature Grans % 0.2 % Lymphocyte % Auto 46.7 % Monocyte % Auto 9.4 % Eosinophil % Auto 3.2 % Basophil % Auto 1.0 % Nucleated RBC 0.0 <=0.2 /100 WBC Segs + Bands,Absolute Auto 3.60 1.57 - 6.19 K/uL Immature Grans Absolute <0.04 <=0.07 K/uL Abs Lymph Auto 4.26 (H) 0.83 - 3.57 K/uL Abs Falls Auto 0.86 0.24 - 0.93 K/uL Abs Eos Auto 0.29 0.00 - 0.48 K/uL Abs Baso Auto 0.09 0.00 - 0.09 K/uL GLUCOSE POC Result Value Ref Range Glucose (POC Device) 115 (H) 70 - 99 mg/dL POC Sample Type CAPBL COVID Screening (transplants only) No active symptoms, defer screening. ASSESSMENT AND PLAN Laura Stephens is a 52 year old male who presented to [facility] 10/29/2022 with chest pain on exertion while shoveling snow. Diagnosed with NSTEMI and LHC revealed CAD. Transferred to [facility] for ongoing management and CABG evaluation. Admitting Surgeon: Derek Jara MD, PhD NSTEMI/CAD: (POA) Beta- Blockade: Metoprolol 25mg Q12H Aspirin: Dose: 81mg daily Statin: Initiated high intensity statin 11/08 Atorvastatin 80mg daily HS Troponin x2 Heparin gtt NTG SL PRN Preoperative labs and screenings Remain NPO with medications tonight, pending screening plans in AM. Plan for MIV while NPO for renal preservation in setting of [facility] today. HTN: (POA) Metoprolol 25mg q12h Vitals monitoring per protocol Hyperglycemia: (POA) ACHS Monitoring, BG 115 on arrival Lispro sliding scale coverage ACHS Screen Hemoglobin A1C Nicotine DependenceActive smoker: (POA) 26 years x 1ppd PFTs ordered Discussed smoking cessation as above. Provide education materials Spent 3-5 minutes counseling on this topic Outpatient cessation resources to be discussed at later date ETOH Abuse: (POA) Reported 3 or more beers per day Patient reports no withdraw symptoms with periods of ETOH consumption cessation. Monitor for evidence of withdraw Pre-operative Anemia screening: Complete: Pending CBC. Hgb at OSH 11/08 14.7g/dL Forrest Ramirez, APPLICATION SUPPORT CONSULTANT-REVERSE ENGINEER 11/09/2022 documented in this [facility]01-25-[address] Estevez [facility] November 08, 2022 5:37pm Note Date/Time November 08, 2022 5 :37pm [facility] Medical Records Department [address] [place] [address] Discharge Summary 11/08/22 1730 MR#: [id number] Acct: [id number] Name: LAURA STEPHENS Rep #:[id number] : 1970 52 From: Marianne Estevez DO PCP: Dr. Denys Cuello MD Status:A DM MARYJANE Location: [place] [address] Providers Date of Admission: 11/08/22 Date of Discharge: 11/08/22 Primary Care Physician: Dr. Denys Cuello MD Consultations 11/08/22 10:06 Consult: Cardiology Routine Consulting Provider: Timmy Infante Reason for Consult: Chest Pain EMERGENT Consult: No MD Notified: Yes Date Notified: 11/08/22 Time Notified: 08:57 Method of Notification: Verbal Reason For Visit: CHEST PAIN Diagnosis Discharge Diagnosis (1) Chest pain: Status: Acute Code(s): R07.9 - Chest pain, unspecified (2) Hyperglycemia: Status: Acute Code(s): R73.9 - Hyperglycemia, unspecified Plan Chest pain -Story is highly suspicious for coronary pathology -Case discussed with cardiology as I do feel he would benefit from cath rather than any noninvasive testing and they agree -Patient has been n.p.o. except for coffee this morning will remain so -Cycle cardiac enzymes initial was 37 -Check hemoglobin A1c -Check lipid profile -D-dimer was unremarkable -EKG with subtle abnormalities -Start high intensity statin -start metoprolol 25 mg p.o. twice daily -Start aspirin 81 mg daily -May be able to initiate VILMA inhibitor depending on blood pressure -Cardiology consultation Hyperglycemia without history of diabetes -Blood sugar this morning was 134 -Check hemoglobin A1c Elevated blood pressure without diagnosis of hypertension -Continue to monitor -Start metoprolol 25 mg p.o. twice daily Alcohol abuse -Patient admits to drinking 6 to 8 12 ounce beers at night -Has never gone through withdrawal -Has stopped drinking for a period of time without any withdrawal symptoms -Monitor clinically Tobacco abuse -Recommend cessation -Nicotine patch if desired DVT prophylaxis -Subcu Lovenox CODE STATUS -Full code Medications at Discharge Home Medications NK 11/08/22 Hospital Course Procedures 2-D Echocardiogram, Cardiac catheterization and EKG Summary of Care Provided Minutes Spent on Discharge: 25 Hospital Course: Mr. Stephens is a 52-year-old white male who presented to the emergency departmentat [facility] after suffering chest pain while shoveling snow atapproximately 630 this morning. 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 He has no personal history of coronary disease but does have a history of tobacco abuse and reported hypertension however he takes no medications. He hasa family history of coronary disease in both his father and grandfather and theyevidently in their 70s. He reported that when he had the event he stopped shoveling snow and sat down and started to feel somewhat better however his chest pain did not completely resolve until he got to the emergency department. At the time of my evaluation his chest pain had resolved. Vital signs on presentation emergency department demonstrated temperature of 96.2, heart rate 86, blood pressure 148/8094, respiratory rate of 15, oxygen saturation was 96% on room air. His CBC was unremarkable. D-dimer was less than 0.27. Chemistry panel was unremarkable other than a blood glucose of 134. His initial troponin was 37. Chest x-ray had no acute findings and his EKG showed normal sinus rhythm with normal intervals and about a half a millimeter of ST depression in the lateral leads. Given his concerning story I contacted the loan inspector and we both felt that immediate catheterization was necessary. Patient was admittedto floor and his cardiac enzymes were cycled. Again his initial troponin was 37however his repeat troponin was 104. He was started on aspirin, high intensity of statin, and beta-braydon. We did obtain a hemoglobin A1c and was found to be5.9. The patient does not have a history of any insulin resistance or diabetes. He was taken to [facility]. In the [facility] he was found to have severe leftmain disease and would require transfer. An echocardiogram was obtained while waiting for transfer and his EF was found to be 55% with trivial mitral valve insufficiency, trivial tricuspid valve insufficiency, trivial aortic valve insufficiency and a right ventricular systolic pressure of [address] Infante did discuss the case with CT surgery at [facility] and he was transferred to [facility] to Dr. Jara service on 11/08/2019 3 in the evening. Discharge diagnoses: NSTEMI Severe left main disease Insulin resistance Elevated blood pressure without history of hypertension Tobacco abuse Alcohol abuse Weight / BMI Weight Weight: 89.6 kg Body Mass Index (BMI) 26.8 ABG / Lab / Microbiology Data Result Diagrams: 11/08/22 07:40 11/08/22 07:40 Laboratory: Laboratory Results - last 24 hr 11/08/22 07:40: WBC 10.5, RBC 4.99, Hgb 14.7, Hct 43.5, MCV 87.2, MCH 29.5, MCHC33.8, RDW Std Deviation 45.6 H, RDW Coeff of Tj 14.3, Plt Count 242, MPV 10.4, Immature Gran % (Auto) 0.300, Neut % (Auto) 43.8 L, Lymph % (Auto) 41.7 H, Falls % (Auto) 11.0 H, Eos % (Auto) 2.4, Baso % (Auto) 0.8, Absolute Neuts (auto) 4.6,Absolute Lymphs (auto) 4.39, Nucleated RBC % 0 11/08/22 07:40: Sodium 138, Potassium 4.1, Chloride 106, Carbon Dioxide 24.0, Anion Gap 8, BUN 15, Creatinine 1.23, Estim Creat Clear Calc 78.86, Est GFR (MDRD) Af Amer 80, Est GFR (MDRD) Non-Af 66, BUN/Creatinine Ratio 12.2, Glucose 134 H, Calcium 9.5, Troponin I High Sens 37 11/08/22 07:40: D-Dimer Quant (PE/DVT) Cancelled 11/08/22 07:40: Hemoglobin A1c 5.9 H 11/08/22 09:19: D-Dimer Quant (PE/DVT) < 0.27 L 11/08/22 10:45: Troponin I High Sens 104 H 11/08/22 16:00: PT 13.6, INR 1.1, APTT 29.0 Radiography Diagnostic Testing: Radiology Impression Chest X-Ray 11/08/22 07:38 IMPRESSION: Hyperinflation. The lungs are clear. 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 Electronically Signed: Ryan Chu MD at 8:22 EST , Echocardiogram 11/08/22 11:27 Interpretation Summary Left ventricular systolic function is normal. The estimated ejection fraction is 55 %. Trivial mitral valve insufficiency. Trivial tricuspid valve insufficiency. Trivial aortic valve insufficiency. Right ventricular systolic pressure estimated to be 25 mmHg. No evidence for diastolic dysfunction. Ordering Physician: Timmy Infante Referring Physician: DENYS CUELLO Performed By: Fouzia Casillas RDCS Meaningful Use Info Meaningful Use Diagnoses (Choose all that apply): None applicable Discharge Plan Admission Admit Date/Time: 11/08/22 08:27 Primary Reason for Your Visit: Chest pain Attending Provider: Marianne Estevez Primary Care Provider: Denys Cuello Consulting Providers: Timmy Infante Discharge Orders/Prescriptions Prescriptions: No Action NK Referrals / Follow Up: Denys Cuello MD [Primary Care Provider] - Disposition Discharge Orders: Discharge Patient (Routine); Ordered 11/08/22 Ordered By: Dr. Timmy Infante Charges/Coding Visit Charges OBSV E&M: 99322 Observ/hosp same date L3 11/08/22 1737 <Electronically signed by Marianne Estevez DO> Cosigner Signature (if applicable): CC: Dr. Denys Cuello MD; Dr. Marianne Estevez DO~ Signed [facility] Work Phone: 1(251) 663-995701-25-2023 History and physical note Author Dr. Estevez [facility] November 08, 2022 5:37pm Note Date/Time November 08, 2022 8 :34am [facility] Medical Records Department [address] [place] [address] H&P Exam - Hospitalist 11/08/22 0832 MR#: [id number] Acct: [id number] Name: LAURA STEPHENS Rep #:[id number] : 1970 52 From: Marianne Estevez DO PCP: Dr. Densy Cuello MD Status:A DM MARYJANE Location: [place] [address] HPI - General General Date of Admission: 11/08/22 Date of Service: 11/08/22 Chief Complaint: Chest pain HPI Narrative LAURA STEPHENS, is a 52 M who presented to the emergency department [facility] after he suffered chest pain while shoveling snow at about 630 this morning. 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 Patient has no personal coronary history but does have a history of tobacco and reported hypertension however he takes no medications. He has a family history of coronary disease in both his father and grandfather. They both apparently in their 70s. He reports when he had the event he stopped shoveling snow and sat down and started to feel better. At the time of my evaluation he did not have any chest pain. Signs on presentation emergency department showed a temperature of 96.2, heart rate 86, blood pressure 148/94, respiratory rate 15 and oxygen saturation was 96% on room air. His CBC is unremarkable. D-dimer was less than 0.27. Chemistry panel was unremarkable other than a blood glucose of 134. His initialtroponin was 37. Chest x-ray had no acute findings. His EKG showed normal sinus rhythm with normal intervals and about a half a millimeter of ST depression in the lateral leads. 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 Marianne Estevez DO) Grandmother Breast cancer Father Prostate cancer Skin cancer CAD (coronary artery disease) Mother Hypertension High cholesterol Grandfather CAD (coronary artery disease) Surgical History no surgical history no surgical history Social History Smoking Status: Current every day smoker tobacco type: cigarettes alcohol intake: current alcohol intake frequency: 3 or more drinks per day Alcohol type: beer substance use type: does not use what type of physical activity do you participate in: none ROS Constitutional Constitutional: Denies anorexia, change in weight, chills, fatigue, fever(s), malaise, night sweats, weakness or other Eyes Eyes: Denies blurry vision, change in eye color, change in vision, discharge from eye(s), double vision, erythema, eye pain, loss of vision or other ENT HEENT: Denies abnormal hearing, dysphagia, ear pain, epistaxis, headache(s), hearing loss, nasal congestion, nasal discharge, post nasal drip, sinus pressure, sore throat or other Cardiovascular Cardiovascular: Reports chest pain, dyspnea on exertion and lightheadedness; Denies claudication, edema, orthopnea, palpitations, paroxysmal nocturnal dyspnea, rapid heart rate, syncope or other Respiratory/Chest Respiratory/Chest: Denies cough, dyspnea, excessive phlegm production, hemoptysis, productive cough, shortness of breath at rest, shortness of breath with exertion, wheezing or other Gastrointestinal Gastrointestinal: Denies abdominal pain, coffee ground emesis, constipation, diarrhea, dyspepsia, hematemesis, hematochezia, loose stools, melena, nausea, vomiting or other Genitourinary Genitourinary: Denies burning urination, difficulty urinating, dysuria, hematuria, nocturia, urinary frequency, urinary hesitancy, urinary incontinence,urinary urgency or other Musculoskeletal Musculoskeletal: Reports other Details: Left arm pain in association with chest pain ; Denies arthralgias, back pain, joint pain, joint stiffness, joint swelling, myalgias or neck pain Psychiatric Psychiatric: Denies anxiety, depression, homicidal ideation, suicidal ideation or other Endocrine Endocrinology: Denies change in body appearance, cold intolerance, excessive sweating, heat intolerance, polydipsia, polyuria or other Hematologic/Lymphatic Hematologic/Lymphatic: Denies anemia, easy bleeding, easy bruising, lymphadenopathy or other Allergic/Immunologic Allergic/Immunologic: Denies rhinitis, hives, eczemia, asthma or other Vital Signs Vital Signs Vital Signs: 11/08/22 07:37 11/08/22 07:50 Temperature 96.2 F L Temperature Source Temporal Pulse Rate 86 Respiratory Rate 15 Blood Pressure 148/94 H Blood Pressure Mean 112 Pulse Ox 96 Oxygen Delivery Method Room Air Room Air Weight Weight: 95.3 kg Body Mass Index (BMI) 28.5 Physical Exam Const alert, oriented x3, no apparent distress, average body habitus and well nourished Constitutional Narrative: Slightly overweight, white male, sitting up in bed, appears comfortable, nontoxic General Appearance: cooperative HEENT normocephalic, head/scalp atraumatic and moist oral mucous membranes HEENT Narrative: Mild hearing loss, dentition is good, no thrush, Mallampati 2 Eyes PERRL, EOMs intact bilaterally and conjunctivae normal Eyes Narrative: No scleral icterus Neck no lymphadenopathy, supple, no JVD and no carotid bruits Neck Narrative: Trachea midline, no thyroid enlargement Resp normal respiratory effort, no retractions, no use of accessory muscles and clearto auscultation bilaterally Auscultation: Negative for crackles, rhonchi or wheezes Cardio regular rate, regular rhythm, S1 normal heart sound, S2 normal heart sound, no murmurs, no rub, no gallops and no clicks GI normal to inspection, nondistended, normoactive bowel sounds, soft to palpation and non-tender Extremity no clubbing, cyanosis or edema Extremity Narrative: 2+ pedal pulses Skin no rashes or lesions noted, no wounds, skin turgor normal, no jaundice, no petechiae and no mottling Neuro oriented x3, CN's II-XII intact bilaterally, moves all extremities and no focal motor deficits Speech: speech normal Motor Exam: strength 5/5 throughout Psych affect normal Psych Narrative: Pleasant, appropriately interactive Results Lab / Micro Data Result Diagrams: 11/08/22 07:40 11/08/22 07:40 Labs: Laboratory Results - last 24 hr 11/08/22 07:40: WBC 10.5, RBC 4.99, Hgb 14.7, Hct 43.5, MCV 87.2, MCH 29.5, MCHC33.8, RDW Std Deviation 45.6 H, RDW Coeff of Tj 14.3, Plt Count 242, MPV 10.4, Immature Gran % (Auto) 0.300, Neut % (Auto) 43.8 L, Lymph % (Auto) 41.7 H, Falls % (Auto) 11.0 H, Eos % (Auto) 2.4, Baso % (Auto) 0.8, Absolute Neuts (auto) 4.6,Absolute Lymphs (auto) 4.39, Nucleated RBC % 0 11/08/22 07:40: Sodium 138, Potassium 4.1, Chloride 106, Carbon Dioxide 24.0, Anion Gap 8, BUN 15, Creatinine 1.23, Estim Creat Clear Calc 78.86, Est GFR (MDRD) Af Amer 80, Est GFR (MDRD) Non-Af 66, BUN/Creatinine Ratio 12.2, Glucose 134 H, Calcium 9.5, Troponin I High Sens 37 Radiology Impression Chest X-Ray 11/08/22 07:38 IMPRESSION: Hyperinflation. The lungs are clear. 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 Electronically Signed: Ryan Chu MD at 8:22 EST , Assessment & Plan Assessment/Plan (1) Chest pain: (2) Hyperglycemia: PLAN: Plan Chest pain -Story is highly suspicious for coronary pathology -Case discussed with cardiology as I do feel he would benefit from cath rather than any noninvasive testing and they agree -Patient has been n.p.o. except for coffee this morning will remain so -Cycle cardiac enzymes initial was 37 -Check hemoglobin A1c -Check lipid profile -D-dimer was unremarkable -EKG with subtle abnormalities -Start high intensity statin -start metoprolol 25 mg p.o. twice daily -Start aspirin 81 mg daily -May be able to initiate VILMA inhibitor depending on blood pressure -Cardiology consultation Hyperglycemia without history of diabetes -Blood sugar this morning was 134 -Check hemoglobin A1c Elevated blood pressure without diagnosis of hypertension -Continue to monitor -Start metoprolol 25 mg p.o. twice daily Alcohol abuse -Patient admits to drinking 6 to 8 12 ounce beers at night -Has never gone through withdrawal -Has stopped drinking for a period of time without any withdrawal symptoms -Monitor clinically Tobacco abuse -Recommend cessation -Nicotine patch if desired DVT prophylaxis -Subcu Lovenox CODE STATUS -Full code Charges/Coding Visit Charges Inpatient E&M: 25847 Init Hosp L2 11/08/22 1247 <Electronically signed by Marianne Estevez DO> Cosigner Signature (if applicable): CC: Dr. Denys Cuello MD; Dr. Marianne Estevez DO~ Signed ADDENDUM by Dr. Marianne Estevez DO on 11/08/22 at 1737 Visit Charges OBSV E&M: 75020 Observ/hosp same date L3 11/08/22 1737<Electronically signed by Marianne Estevez DO> Cosigner Signature (if applicable): cc: Dr. Denys Cuello MD; Dr. Marianne Estevez DO ~* Signed [facility] Work Phone: 1(323) 401-148201-25-[address] Win [facility] November 08, 2022 4:10pm Note Date/Time November 08, 2022 7 :46am [facility] Medical Records Department [address] [place] [address] Emergency Department Summary 11/08/22 MR#: [id number] Acct: [id number] Name: LAURA STEPHENS Rep #:[id number] : 1970 52 From: Emelia Win MD PCP: Dr. Denys Cuello MD Status:A DM MARYJANE Location: [address] History of Present Illness Chief Complaint: Chest Pain Informant: patient Onset/Context/Timing Onset: Today Activity at onset: gradual Quality: Positive for Heaviness and Pressure Location: Substernal Current Severity: Gone Maximum Severity: Moderate Associated Symptoms: Positive for Dyspnea and Lightheadedness Narrative Narrative: Patient presents via EMS secondary to chest pain and shortness of breath. He was out shoveling snow this morning he developed left-sided chest pain and shortness of breath. He felt as if he might pass out. He complains of some tingling in his left arm. 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 Between the aspirin and sitting to rest his pain has subsided. He currently denies any chest pain. He denies any personal history of heart disease. He states his father had coronary disease and of a pulmonary embolism. [facility] Medical History (Updated 11/08/22 @ 08:[address] 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 cyclobenzaprine 10 mg tablet 10 mg PO HS PRN muscle spasm #10 tabs 08/05/20 [Rx Last Taken Unknown] methylprednisolone 4 mg tablets in a dose pack (Medrol (Brain)) See Rx Instructions PO PER PKG DIR #21 tabs 08/05/20 [Rx Last Taken Unknown] Allergy/AdvReac Type Severity Reaction Status Date / Time No Known Allergies Allergy Verified 11/08/22 07:36 Family History Grandmother Breast cancer Father Prostate cancer Skin cancer Mother Hypertension High cholesterol Social History Smoking Status: Current every day smoker tobacco type: cigarettes alcohol intake: current alcohol intake frequency: 3 or more drinks per day Alcohol type: beer substance use type: does not use what type of physical activity do you participate in: none ROS ROS ED Constitutional Constitutional ED: Denies chills or fever(s) Eyes Eyes: Denies change in vision or discharge from eye(s) ENT ENT ED: Denies discharge from eye(s), rhinorrhea or sore throat Cardiovascular Cardiovascular: Reports chest pain; Denies palpitations Respiratory/Chest Respiratory/Chest: Reports dyspnea; Denies cough Gastrointestinal Gastrointestinal: Denies abdominal pain, diarrhea, nausea or vomiting Genitourinary Genitourinary ED: Denies dysuria Musculoskeletal Musculoskeletal: Denies back pain or extremity pain Integumentary Denies Abrasions or rash Neurologic Neurologic: Reports paresthesias; Denies headache(s) or weakness Psychiatric Psychiatric: Denies anxiety or depression Allergic/Immunologic Allergic/Immunologic ED: Denies lip swelling or urticaria EXAM Physical Exam Const Vital Signs: 11/08/22 07:37 11/08/22 07:50 Temperature 96.2 F L Temperature Source Temporal Pulse Rate 86 Respiratory Rate 15 Blood Pressure 148/94 H Blood Pressure Mean 112 Pulse Ox 96 Oxygen Delivery Method Room Air Room Air Positive well nourished and well developed General Appearance ED: well developed HEENT Reports normocephalic and head/scalp atraumatic Eyes PERRL and EOMs intact bilaterally Neck supple Chest Wall inspection of chest normal and palpation of chest normal Resp normal respiratory effort and clear to auscultation bilaterally Cardio regular rate and regular rhythm GI normal to inspection, nondistended, normoactive bowel sounds Palpation: soft Extremity normal to inspection Neuro oriented x3 and no sensory deficits noted Sensorium / Orientation: alert Motor Exam: strength 5/5 throughout Psych mental status grossly normal Skin no rashes or lesions noted Heart Score History: Highly Suspicious ECG: Nonspecific Repolarization Age: >45 - <65 years Risk Factors: 1 or 2 Risk Factors Troponin: </= Normal Limit Score: 5 MDM MDM MDM Narrative Medical decision making narrative: Patient had received aspirin prior to arrival. He was pain-free on arrival. EKG and chest x-ray obtained. Lab work ordered. Lab Data Attestation: I reviewed the patient's lab results. Labs: Laboratory Results - last 24 hr 11/08/22 11/08/22 07:40 07:40 WBC 10.5 RBC 4.99 Hgb 14.7 Hct 43.5 MCV 87.2 MCH 29.5 MCHC 33.8 RDW Std Deviation 45.6 H RDW Coeff of Tj 14.3 Plt Count 242 MPV 10.4 Immature Gran % (Auto) 0.300 Neut % (Auto) 43.8 L Lymph % (Auto) 41.7 H Falls % (Auto) 11.0 H Eos % (Auto) 2.4 Baso % (Auto) 0.8 Absolute Neuts (auto) 4.6 Absolute Lymphs (auto) 4.39 Nucleated RBC % 0 Sodium 138 Potassium 4.1 Chloride 106 Carbon Dioxide 24.0 Anion Gap 8 BUN 15 Creatinine 1.23 Estim Creat Clear Calc 78.86 Est GFR (MDRD) Af Amer 80 Est GFR (MDRD) Non-Af 66 BUN/Creatinine Ratio 12.2 Glucose 134 H Calcium 9.5 Troponin I High Sens 37 Radiography Chest X-Ray - ED: 1 View, Read by ED Physician, Normal, Heart, Lungs and Mediastinum EKG Initial EKG: Attestation: I personally reviewed and interpreted this EKG as follows: Interpretation: Sinus Rhythm (Sinus 83 with 1/[address] depression in V4 and V5.) Treatment and Re-Evaluation Narrative: Repeat evaluation patient resting comfortably. Patient's story is obviously concerning. Initial troponin is negative. Given his constitutional symptoms I do feel he warrants observation for cycling of enzymes and stress test. I will speak with hospitalist. Discharge Plan Triage Chief Complaint: Chest Pain ED Provider: Emelia Win Dx/Rx/DC Orders Clinical Impression: Chest pain Prescriptions: No Action methylprednisolone [Medrol (Brain)] 4 mg tablets,dose pack See Rx Instructions PO PER PKG DIR Qty: 21 0RF Rx Instructions: PO PER PKG DIR cyclobenzaprine 10 mg tablet 10 mg PO HS PRN (Reason: muscle spasm) Qty: 10 0RF Primary Care Provider: Denys Cuello Referrals: Denys Cuello MD [Primary Care Provider] - Disposition Disposition: Acute Care Hospital [facility] What to do if you have Problems For any increased pain, shortness of breath, bleeding, nausea or vomiting, chestpain, or any unexpected problems, contact your Primary Care Provider. Call [facility] ([phone]) or report to the closest Emergency Room. Call 911 if necessary. 11/08/22 1610 <Electronically signed by Emelia Win MD> Cosigner Signature (if applicable): CC: Dr. Denys Cuello MD ~ Signed [facility] Work Phone: 1(511) 789-742201-25-[address] Infante [facility] November 08, 2022 11:45am Note Date/Time November 08, 2022 1 1:36am [facility] Medical Records Department [address] [place] [id number] Consultation - Cardiology 11/08/22 1128 MR#: [id number] Acct: [id number] Name: LAURA STEPHENS Rep #:[id number] : 1970 52 From: Timmy Infante MD PCP: Dr. Denys Cuello MD Status:A DM MARYJANE Location: [place] [address] Assessment & Plan Assessment/Plan (1) Angina pectoris: PLAN: The patient presents with symptoms concerning for exertional angina pectoris. His symptoms occurred outside, in the cold, with exertion.? They then occurred again when he was walking outside in the cold with no additional physical exertion. His initial noninvasive valuation is unremarkable based upon cardiac enzyme.? However, his second troponin I level is positive.? His ECG is as noted. At the present time based upon his clinical scenario the concern is for underlying unstable angina pectoris requiring further cardiovascular evaluation with consideration for direct evaluation of coronary anatomy with diagnostic cardiac catheterization.? The procedure and risk were discussed with the patient with his spouse present.? He was agreeable to this approach. In the interim he will continue to be monitored. He will continue medical therapy.? This will include agents such as aspirin 81 mg p.o. daily, nitroglycerin sublingual as needed, as well as consideration for other agents such as beta-blockers, afterload reducing agents, lipid-lowering agents, and antiplatelet/anticoagulants. (2) Non-ST elevation (NSTEMI) myocardial infarction: PLAN: The patient's second troponin I level returned positive. This would be compatible with a non-ST segment elevation NJ. Based upon the patient's presentation this would be concerning for an acute coronary syndrome. At the present time the patient will continue to be monitored. He will continue medical therapy. He has been placed on aspirin therapy. He will receive additional agents as noted above as deemed appropriate. He has been recommended for further evaluation with diagnostic cardiac catheterization. Again the procedure and risk were discussed with him. He was agreeable to this approach. (3) HTN (hypertension): PLAN: The patient has been noted to be hypertensive. It is unclear as to whether or not this is secondary to his symptoms versus a contributing factor to his symptoms. Based upon review of medical records it appears he has been documented to be hypertensive in the past as well. At the present time he will need to have his blood pressure monitored. He should be considered for antihypertensive therapy which could include agents such as VILMA inhibitor's or ARB's, etc. (4) Hyperglycemia: PLAN: The patient's medical record states he has a history of hyperglycemia. If the patient does have hyperglycemia this could be a contributing factor to a cardiovascular risk profile. His glucose levels will need to be evaluated and treated appropriately. Addt'l Comments The above was discussed with the patient, his spouse, and Dr. Estevez of the [facility] staff. Comment: Time spent in the patient's overall evaluation, examination, review of medical records, review of radiologic studies, documentation, and discussion with family and the [facility] medical staff: 60 minutes. HPI Consult Data Date of Consult: 11/08/22 HPI Narrative HPI Narrative: LAURA STEPHENS, is a 52 year old white male who presents for cardiovascular consultation based upon concerns of symptoms concerning for exertional angina pectoris, subsequent abnormal troponin I level concerning for an acute coronary syndrome/non-ST segment elevation NJ, and hypertension superimposed upon a report of hyperglycemia. The patient states to the best of his knowledge she has no known cardiovascular disease process. He notes today while outside in the cold shoveling snow he developed chest discomfort that radiated to his left shoulder and down his left upper extremity. He did feel somewhat short of breath and transiently nauseated. He is unsure whether he was diaphoretic as hewas shoveling snow and already perspiring. He did not complain of palpitations. There was no report of near syncope or syncope. He states he stopped, rested, and went to the employment nurse. As he rested his symptoms improved. The EMS was called. He states he walked outside to the EMS. When he was outside in thecold he states that his symptoms started to recur with some element of chest discomfort. By the time he arrived in the emergency department he felt better. He states looking back that he believes he may have had similar type symptoms inthe past under stressful situations but he is somewhat unclear of the details. There is been no obvious orthopnea, PND, or peripheral pitting edema. In the emergency department he was evaluated. His initial troponin I level was negative. His subsequent troponin I level is positive. His ECG demonstrated sinus rhythm with subtle nonspecific ST segment abnormality. The chest x-ray suggested, upon review, no acute cardiopulmonary disease process. He was subsequently placed in the PCU for further evaluation and care. He has been resting comfortably. He is remained in sinus rhythm. [facility] Medical History (Updated 11/08/22 @ 11:[address] 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 Tobacco abuse Home Medications NK 11/08/22 [History Last Taken Unknown] Allergy/AdvReac Type Severity Reaction Status Date / Time No Known Allergies Allergy Verified 11/08/22 07:36 Family History Grandmother Breast cancer Father Prostate cancer Skin cancer Mother Hypertension High cholesterol Social History Smoking Status: Current every day smoker tobacco type: cigarettes alcohol intake: current alcohol intake frequency: 3 or more drinks per day Alcohol type: beer substance use type: does not use what type of physical activity do you participate in: none ROS Constitutional Constitutional: Reports as per HPI Eyes Eyes: Reports as per HPI ENT HEENT: Reports as per HPI Cardiovascular Cardiovascular: Reports chest pain with activity, diaphoresis, dyspnea on exertion and nausea Respiratory/Chest Respiratory/Chest: Reports dyspnea on exertion Gastrointestinal Gastrointestinal: Reports as per HPI Genitourinary Genitourinary: Reports as per HPI Musculoskeletal Musculoskeletal: Reports as per HPI Integumentary Integumentary: Reports as per HPI Neurologic Neurologic: Reports as per HPI Physical Exam Const alert, oriented x3, no apparent distress and healthy appearing Orientation / Consciousness: awake HEENT normocephalic, head/scalp atraumatic and hearing grossly normal bilaterally Eyes PERRL, EOMs intact bilaterally and conjunctivae normal Neck full ROM, supple and no JVD Carotids: normal carotid upstroke Resp normal respiratory effort and clear to auscultation bilaterally Cardio regular rate, regular rhythm, S1 normal heart sound and S2 normal heart sound GI normal to inspection, nondistended, normoactive bowel sounds Extremity normal to inspection and no pedal edema Skin no rashes or lesions noted Psych mental status grossly normal Risk Stratification Risk Stratification Applicable: Yes Age >/= 65: No >/= 3 CAD Risk Factors (HTN, HLD, DM, family hx of CAD, or current smoker): No Aspirin Use in the Past 7 Days: No Severe Angina (>/= episodes in 24 hours): Yes EKG ST Changes >/= 0.5mm: No Positive Cardiac Marker: Yes LOIS Risk Stratification Score: 2 LOIS % Risk: 8% Risk Procedure Criteria Type of Procedure Procedure Type: Elective Elective Risks - COVID COVID Risk Discussion: The surgeon/proceduralist and patient have discussed in detail the risk of exposure to and/or potential harm posed by the COVID-19 virus with having a surgery/procedure at this time versus the risk of delaying the surgery/procedure. It is not possible to know either the risk of delaying the surgery or procedure or chance of getting an infection with perfect accuracy, but a joint decision was made between the patient and the surgeon/proceduralist to proceed at this time with the scheduled surgery/procedure as indicated on theconsent form. Objective Data Vital Signs: Vital Signs Temp Pulse Resp BP Pulse Ox O2 Del Method 96.2 F L 88 16 135/95 H 95 Room Air 11/08/22 10:15 11/08/22 11:06 11/08/22 10:15 11/08/22 10:15 11/08/22 10:15 11/08/22 10:15 Oxygen Delivery Method Room Air Weight: 197 lb 8.547 oz Body Mass Index (BMI) 26.8 Lab / Micro Data Result Diagrams: 11/08/22 07:40 11/08/22 07:40 Labs: Laboratory Results - last 24 hr 11/08/22 07:40: WBC 10.5, RBC 4.99, Hgb 14.7, Hct 43.5, MCV 87.2, MCH 29.5, MCHC33.8, RDW Std Deviation 45.6 H, RDW Coeff of Tj 14.3, Plt Count 242, MPV 10.4, Immature Gran % (Auto) 0.300, Neut % (Auto) 43.8 L, Lymph % (Auto) 41.7 H, Falls % (Auto) 11.0 H, Eos % (Auto) 2.4, Baso % (Auto) 0.8, Absolute Neuts (auto) 4.6,Absolute Lymphs (auto) 4.39, Nucleated RBC % 0 11/08/22 07:40: Sodium 138, Potassium 4.1, Chloride 106, Carbon Dioxide 24.0, Anion Gap 8, BUN 15, Creatinine 1.23, Estim Creat Clear Calc 78.86, Est GFR (MDRD) Af Amer 80, Est GFR (MDRD) Non-Af 66, BUN/Creatinine Ratio 12.2, Glucose 134 H, Calcium 9.5, Troponin I High Sens 37 11/08/22 07:40: D-Dimer Quant (PE/DVT) Cancelled 11/08/22 07:40: Hemoglobin A1c 5.9 H Cardiology Labs/Tests 11/08/22 07:40: WBC 10.5, RBC 4.99, Hgb 14.7, Hct 43.5, MCV 87.2, MCH 29.5, MCHC33.8, Plt Count 242, MPV 10.4, Immature Gran % (Auto) 0.300, Neut % (Auto) 43.8 L, Lymph % (Auto) 41.7 H, Falls % (Auto) 11.0 H, Eos % (Auto) 2.4, Baso % (Auto) 0.8, Absolute Neuts (auto) 4.6, Nucleated RBC % 0 11/08/22 07:40: Sodium 138, Potassium 4.1, Chloride 106, Carbon Dioxide 24.0, Anion Gap 8, BUN 15, Creatinine 1.23, Est GFR (MDRD) Af Amer 80, Est GFR (MDRD) Non-Af 66, BUN/Creatinine Ratio 12.2, Glucose 134 H, Calcium 9.5 11/08/22 07:40: D-Dimer Quant (PE/DVT) Cancelled 11/08/22 07:40: Hemoglobin A1c 5.9 H Rhythm: Sinus rhythm EKG: Sinus rhythm; subtle nonspecific ST segment abnormality Radiography Diagnostic Testing: Radiology Impression Chest X-Ray 11/08/22 07:38 IMPRESSION: Hyperinflation. The lungs are clear. 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 Electronically Signed: Ryan Chu MD at 8:22 EST , 11/08/22 1145 <Electronically signed by Timmy Infante MD> Cosigner Signature (if applicable): CC: Dr. Denys Cuello MD; Dr. Timmy Infante MD~ Signed [facility] Work Phone: 1(469) 337-314001-01-2023 Evaluation note* Diagnosis Onset Date Resolution Status Atherosclerotic heart diseas e of ewiiaapaayp coronary artery without angina pectoris acute History of coronary artery bypass surgery October, 3 acute Tobacco abuse acute Essential hypertension chron ic History of coronary artery bypass surgery October, 3 acute Palpitations acute Essential hypertension chron ic Bilateral shoulder pain acut e History of coronary artery bypass surgery October, 3 acute Borderline type 2 diabetes mellitus chronic BPH (benign prostatic hyperplasia) chronic Essential hypertension chron ic GI bleed chronic GI bleed chronic Acute bacterial conjunctivitis acute Acute pharyngitis acute Acute bacterial conjunctivitis acute History of coronary artery bypass surgery October, 3 acute Essential hypertension [facility] Work Phone: 1(956) 375-385801-01-2023 Evaluation note* Diagnosis Onset Date Resolution Status Chest pain acute Fatigue acute History of coronary artery bypass surgery October, 3 acute Essential hypertension [facility] Work Phone: 1(177) 909-873101-01-2023 Evaluation note* Diagnosis Onset Date Resolution Status Chest pain acute Fatigue acute History of coronary artery bypass surgery October, 3 acute Essential hypertension [facility] ic Depressive disorder acute Anxiety and depression acute [facility] Work Phone: 1(462) 902-187301-01-2023 Evaluation note* Diagnosis Onset Date Resolution Status Anxiety and depression acute Depressive disorder acute Chest pain acute History of coronary artery bypass surgery October, 3 acute Essential hypertension [facility] Work Phone: Evaluation note* Diagnosis Onset Date Resolution Status Chest pain acute Hyperglycemia acute [facility] Work Phone: Evaluation note* Diagnosis Onset Date Resolution Status Angina pectoris acute Chest pain acute Hyperglycemia acute Non-ST elevation (NSTEMI) myocardial infarction acute HTN (hypertension) chronic [facility] Work Phone: Evaluation note* Diagnosis Coronary artery disease of ewiiaapaayp artery of ewiiaapaayp heart with stable angina pectoris- Primary Acute post-operative pain S/P CABG (coronary artery bypass graft) Postsurgical aortocoronary bypass status CAD (coronary artery disease) Coronary atherosclerosis of unspecified type of vessel, ewiiaapaayp or graft [facility] Diagnosis Onset Date Resolution Status Angina pectoris acute Chest pain acute Hyperglycemia acute Non-ST elevation (NSTEMI) myocardial infarction acute Atherosclerotic heart diseas e of ewiiaapaayp coronary artery without angina pectoris acute Essential hypertension acute History of coronary artery bypass surgery October, 3 acute Tobacco abuse acute Essential hypertension acute History of coronary artery bypass surgery October, 3 acute Palpitations acute [facility] Work Phone: Evaluation note* Diagnosis Status post cardiac surgery [facility] Diagnosis Onset Date Resolution Status Angina pectoris acute Chest pain acute Hyperglycemia acute Non-ST elevation (NSTEMI) myocardial infarction acute Atherosclerotic heart diseas e of ewiiaapaayp coronary artery without angina pectoris acute History of coronary artery bypass surgery October, 3 acute Tobacco abuse acute Essential hypertension chron ic History of coronary artery bypass surgery October, 3 acute Palpitations acute Essential hypertension chron ic Bilateral shoulder pain acut e History of coronary artery bypass surgery October, 3 acute Borderline type 2 diabetes mellitus chronic BPH (benign prostatic hyperplasia) chronic Essential hypertension chron ic GI bleed chronic [facility] Work Phone: Evaluation note* Diagnosis Acute right ankle pain- [facility] Foot pain, left- Primary Pain in limb Foot pain, left Pain in limb [facility] Diagnosis Foot pain, left Pain in [facility] Elbow swelling, left- Primary [facility] Brunner [facility] March 30, 2023 7:42am Note Date/Time March 30, 2023 7:42 am [facility] Medical Records Department [address] [place] [address] History & Physical Exam 03/30/23 0742 MR#: [id number] Acct: [id number] Name: LAURA STEPHENS Rep #:[id number] : 1970 52 From: Mesfin gonzalez MD PCP: Dr. Denys Cuello MD Status:R EG [facility] Location: [place] [address] History and Physical Date of Admission: 03/30/23 Intake Vital Signs ? 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 Is patient in pain?: No Allergies No Known Allergies Allergy (Verified 02/19/23 08:22) Medications acetaminophen 325 mg tablet 650 mg PO Q4H PRN 11/21/22 [History Confirmed 02/19/23] aspirin 81 mg chewable tablet (Alyse Chewable Low Dose Aspirin) 81 mg PO DAILY 11/21/22 [History Confirmed 02/19/23] trazodone 50 mg tablet 50 mg PO DAILY PRN sleep 11/21/22 [History Confirmed 02/19/23] nicotine 14 mg/24 hr daily transdermal patch 1 patch transdermal Q24H #28 ea 12/06/22 [Rx Confirmed 02/19/23] atorvastatin 80 mg tablet 80 mg PO QHS #90 tabs 02/13/23 [Rx Confirmed 02/19/23] clopidogrel 75 mg tablet (Plavix) 75 mg PO DAILY #90 tabs 02/13/23 [Rx Confirmed 02/19/23] metoprolol tartrate 25 mg tablet 12.5 mg PO BID #90 tabs 02/13/23 [Rx Confirmed 02/19/23] PFSH Medical History? 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 History of coronary artery bypass surgery (~11/13/22) Family History? Grandmother Breast cancerFather Prostate cancer Skin cancer CAD (coronary artery disease)Mother Hypertension High cholesterolGrandfather CAD (coronary artery disease) Social History? Smoking Status:? Current every day smoker tobacco type: cigarettes alcohol intake:? current alcohol intake frequency: 3 or more drinks per day Alcohol type: beer substance use type:? does not use what type of physical activity do you participate in:? none HPI HPI HPI: Patient is a 52-year-old male here for GI bleeding.? Over the past few years patient has had intermittent bleeding per rectum.? His last episode was a few weeks ago.? He has no bleeding since.? He denies abdominal pain.? He says the blood is bright red.? He does not have pain during bowel movements or firm hard to pass stools.? Patient has no family history of colon cancer.? He has never had a colonoscopy.? Patient had a cardiac bypass in October.? He is on aspirin and Plavix. ROS General General: Yes fatigue; No weight change, appetite, colon cancer, breast cancer or weakness HEENT HEENT: No difficulty swallowing, eye injury, eye surgery, swollen glands or hoarseness Endo Endocrine: No thyroid disease, diabetes mellitus, thyroid cancer, Hair loss, heat intolerance or cold intolerance Skin Skin: No rash or changing moles Breast Breast: No left breast lump, right breast lump, nipple discharge, breast pain, abnormal mammogram, abnormal US or breast enlargement Musc Musculoskeletal: No back problems, arthritis, rheumatoid arthritis, gout or joint pain Cardio Cardiovascular: Yes heart disease, high blood pressure and heart attack; No murmur, pacemaker, atrial fibrillation, heart stent, palpitations, shortness of breat with exertion or chest pain Psych Psychiatric: No depression, anxiety or hearing voices Resp Respiratory: Yes shortness of breath, No sleep apnea, No cough, No COPD, No asthma, No emphysema and No wheezing Gastro Gastrointestinal: No abdominal pain, No nausea or vomiting, Yes diarrhea, No constipation, Yes blood in stool, No acid reflux, No hemorrhoids, No ulcers, No gallbladder problem and No black,tarry stools Herminio Hematologic: Yes blood thinners, No blood disorders, Yes bleeding, No anemia andNo blood clots Neuro Neurologic: No system reviewed and no additional complaints, except as documented, No as per HPI, No abnormal gait, No abnormal hearing, No abnormal movements, No abnormal speech, No behavioral changes, No burning sensations, No confusion, No convulsions, No disequilibrium, No dizziness, No localized weakness, No frequent falls, No headache(s), No lack of coordination, No loss ofvision, No memory loss, No numbness, No other visual disturbances, No radicular pain, No restless legs, No sensory deficit, No syncope, No tingling, No tremor(s), No weakness and No other Exam Const General: cooperative Orientation: alert and oriented x3 HENMT Head: normal to inspection Neck Neck: normal visual inspection and full ROM Chest Chest palpation & inspection: normal inspection of the chest Resp Effort & Inspection: normal respiratory effort Auscultation: clear to auscultation bilaterally Cardio Rate: regular rate Rhythm: regular rhythm GI Inspection: non-distended Palpation: soft and nontender Skin General: no rashes or lesions noted Neuro General: patient alert and patient oriented x3 Extrem General: full ROM Psych Appearance: grossly normal Mental Status: mental status grossly normal Assessment and Plan Assessment and Plan (1) GI bleed: ?Status:?Chronic ?Plan: Patient had his last episode of bright red blood per rectum a few weeks ago.? I recommend colonoscopy and discussed this with him.? I will ask his loan inspector if he can stop his Plavix for 5 days prior to the procedure we will continue aspirin. I explained endoscopy in detail to the patient.? I explained the risks includingbut not limited to stroke or heart attack with anesthesia, perforation of the GItract, bleeding, infection.? I explained that any of these could necessitate further emergency surgery.? The patient understands and all questions were answered sufficiently.? The patient wishes to proceed with procedure. Mesfin Brunner MD Pager: [facility] [address] [place] [address], [address] [place] [address] Office: I have examined the patient and the H&P has been reviewed. There are no clinicalchanges since date of exam. 03/30/23 0742 <Electronically signed by Mesfin Brunner MD> Cosigner Signature (if applicable): CC: Dr. Mesfin Brunner MD; Dr. Denys Cuello MD~ Signed [facility] Work Phone: Hospital Discharge instructionsAmbulatory Orders* Phase II, Outpatient Cardiac Rehab Location: None Selected [facility] Work Phone: Reason for referral (narrative)* Consultation (Routine) - Schedule Outgoing - Transfer of Care Specialty Diagnoses / Procedures Referred By Contac t Referred To Contact Diagnoses Coronary artery disease of ewiiaapaayp artery of ewiiaapaayp heart with stable angina pectoris Derek Jara MD, PhD [address] [place] [address] [facility] Pul[facility] Cardiac [facility], Other [address] [place] [address] Referral ID Status Reason Start Date Expiration Date V isits Requested Visits Authorized [id number] Schedule Outgoing - Transfer of Care 11/13/2022 12/08/2023 1 1 Scheduling Instructions Clinic to contact patient for scheduling at most appropriate location. * Radiology (Emergency) - New Request Specialty Diagnoses / Procedures Referred By Contac t Referred To Contact Procedures ECG Derek Jara MD, PhD [address] [place] [address] Referral ID Status Reason Start Date Expiration Date V isits Requested Visits Authorized [id number] New Request 11/13/2022 12/08/2023 1 1 * (Routine) Specialty Diagnoses / Procedures Referred By Contac t Referred To Contact Pallavi Mccabe DO [address] [place] [address] Referral ID Status Reason Start Date Expiration Date Visits Re quested Visits Authorized * (Routine) - New Request Specialty Diagnoses / Procedures Referred By Contac t Referred To Contact Procedures PLATELET MONITORING PER PROTOCOL Forrest Ramirez APRN-CNP [address] [facility] 5 [place] [address] Referral ID Status Reason Start Date Expiration Date V isits Requested Visits Authorized [id number] New Request 11/09/2022 12/04/2023 1 1 * (Routine) - New Request Specialty Diagnoses / Procedures Referred By Contac t Referred To Contact Procedures NO PHARMACOLOGICAL DVT PROPHYLAXIS Forrest Ramirez APRN-CNP [address] [facility] 5 [place] [address] Referral ID Status Reason Start Date Expiration Date V isits Requested Visits Authorized [id number] New Request 11/09/2022 12/04/2023 1 1 * (Routine) - New Request Specialty Diagnoses / Procedures Referred By Contac t Referred To Contact Procedures DVT/VTE RISK ASSESSMENT Forrest Ramirez APRN-CNP [address] [facility] 5 [place] [address] Referral ID Status Reason Start Date Expiration Date V isits Requested Visits Authorized [id number] New Request 11/09/2022 12/04/2023 1 1 [facility] Diagnostic Procedure Only (Urgent) - Closed Specialty Diagnoses / Procedures Referred By Contac t Referred To Contact XR IMAGING Diagnoses Acute right ankle pain Procedures XR ANKLE GENERAL 3V AP/LAT/OBL RIGHT RADEX ANKLE COMPLETE MINIMUM 3 VIEWS Patel Marcus APRN.REVERSE ENGINEER [address] [place] [address] Xr Imaging Referral ID Status Reason Start Date Expiration Date V isits Requested Visits Authorized [id number] Closed Auto-Generate d Referral 05/01/2023 05/30/2024 1 1 [facility] for referral (narrative)* Diagnostic Procedure Only (Urgent) - Closed Specialty Diagnoses / Procedures Referred By Contac t Referred To Contact XR IMAGING Diagnoses Foot pain, left Procedures XR FOOT GENERAL 3V AP/LAT/OBL LEFT RADEX FOOT COMPLETE MINIMUM 3 VIEWS Penny Soto APRN.REVERSE ENGINEER [address] [place] [address] [place] [address] Referral ID Status Reason Start Date Expiration Date V isits Requested Visits Authorized [id number] Closed Auto-Generate d Referral 07/15/2024 08/14/2025 1 1 [facility] for referral (narrative)* Diagnostic Procedure Only (Urgent) - Closed Specialty Diagnoses / Procedures Referred By Contac t Referred To Contact XR IMAGING Diagnoses Foot pain, left Procedures XR FOOT GENERAL 3V AP/LAT/OBL LEFT RADEX FOOT COMPLETE MINIMUM 3 VIEWS Penny Soto APRN.REVERSE ENGINEER [address] [place] [address] [place] [address] Referral ID Status Reason Start Date Expiration Date V isits Requested Visits Authorized [id number] Closed Auto-Generate d Referral 07/15/2024 08/14/2025 1 1 [facility] for referral (narrative)No reason for referral information availableWOhioHealth [facility] Work Phone: Reason for visit Narrative* Auth/Cert Specialty Diagnoses / Procedures Referred By Contac t Referred To Contact Diagnoses Chest pain, CAD Derek Jara MD, PhD [address] [place] [address] [facility] [address] [place] [address] Referral ID Status Reason Start Date Expiration Date Visits Re quested Visits Authorized [id number] 1 [facility] Diagnostic Procedure Only (Urgent) - Closed Specialty Diagnoses / Procedures Referred By Contac t Referred To Contact XR IMAGING Diagnoses Acute right ankle pain Procedures XR ANKLE GENERAL 3V AP/LAT/OBL RIGHT RADEX ANKLE COMPLETE MINIMUM 3 VIEWS Patel Marcus APPLICATION SUPPORT CONSULTANT.REVERSE ENGINEER [address] [place] [address] [place] [address] Referral ID Status Reason Start Date Expiration Date V isits Requested Visits Authorized [id number] Closed Auto-Generate d Referral 05/01/2023 05/30/2024 1 1 [facility] N[facility]* Diagnostic Procedure Only (Urgent) - Closed Specialty Diagnoses / Procedures Referred By Contac t Referred To Contact XR IMAGING Diagnoses Foot pain, left Procedures XR FOOT GENERAL 3V AP/LAT/OBL LEFT RADEX FOOT COMPLETE MINIMUM 3 VIEWS Penny Soto, APPLICATION SUPPORT CONSULTANT.REVERSE ENGINEER [address] [place] [address] [place] [address] Referral ID Status Reason Start Date Expiration Date V isits Requested Visits Authorized [id number] Closed Auto-Generate d Referral 07/15/2024 08/14/2025 1 1 [facility] Chief Complaint and Reason for Visit Chief Complaint CHEST PAIN Reason for Visit Chest pain Hyperglycemia Chief Complaint CHEST PAIN CHEST PAIN CHEST PAIN Reason for Visit Angina pectoris Chest pain Hyperglycemia Non-ST elevation (NSTEMI) myocardial infarction HTN (hypertension) Chief Complaint CHEST PAIN CHEST PAIN CHEST PAIN Amb Documentation H FU S/P CABG [facility] (documents w PFM) Reason for Visit Angina pectoris Chest pain Hyperglycemia Non-ST elevation (NSTEMI) myocardial infarction 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 Essential hypertension History of coronary artery bypass surgery Tobacco abuse Essential hypertension History of coronary artery bypass surgery Palpitations Chief Complaint CHEST PAIN CHEST PAIN CHEST PAIN Amb Documentation [facility] FU S/P CABG [facility] (documents w PFM) PALP Reason for Visit Angina pectoris Chest pain Hyperglycemia Non-ST elevation (NSTEMI) myocardial infarction 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 Essential hypertension History of coronary artery bypass surgery Tobacco abuse Essential hypertension History of coronary artery bypass surgery Palpitations Chief Complaint CHEST PAIN CHEST PAIN CHEST PAIN Amb Documentation [facility] FU S/P CABG [facility] (documents w PFM) PALP 2 M FU Reason for Visit Angina pectoris Chest pain Hyperglycemia Non-ST elevation (NSTEMI) myocardial infarction 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 History of coronary artery bypass surgery Tobacco abuse Essential hypertension History of coronary artery bypass surgery Palpitations Essential hypertension Bilateral shoulder pain History of coronary artery bypass surgery Borderline type 2 diabetes mellitus BPH (benign prostatic hyperplasia) Essential hypertension GI bleed Chief Complaint WC FU S/P CABG [facility] (documents w PFM) PALP 2 M FU GASTROINTESTINAL HEMORRHAGE LT PINK EYE & SINUS ISSUES 3 M FU Reason for Visit Atherosclerotic hear t disease of [place] coronary artery without angina pectoris History of coronary artery bypass surgery Tobacco abuse Essential hypertension History of coronary artery bypass surgery Palpitations Essential hypertension Bilateral shoulder pain History of coronary artery bypass surgery Borderline type 2 diabetes mellitus BPH (benign prostatic hyperplasia) Essential hypertension GI bleed GI bleed Acute bacterial conjunctivitis Acute pharyngitis Acute bacterial conjunctivitis History of coronary artery bypass surgery Essential hypertension Chief Complaint 6 M FU Reason for Visit Chest pain Fatigue History of coronary artery bypass surgery Essential hypertension Chief Complaint 6 M FU FOLLOW UP FROM CARDIOLOGY VISIT-PER DR CUELLO 3 WK FU CHEST PAIN UNSPECIFIED CHEST PAIN UNSPECIFIED Amb Documentation Reason for Visit Chest pain Fatigue History of coronary artery bypass surgery Essential hypertension Depressive disorder Anxiety and depression Chief Complaint 3 WK FU CHEST PAIN UNSPECIFIED CHEST PAIN UNSPECIFIED Amb Documentation 4 WK FU 4 M FU Other chest pain Reason for Visit Anxiety and depressi on Depressive disorder Chest pain History of coronary artery bypass surgery Essential hypertension Chief Complaint Admit Date UPPER September 29, 2024 4:55pm right hip pain October 20, 2024 4: 43pm RIGHT HIP October 31, 2024 9 :16am E-ORDER October 31, 2024 1 0:10am Reason for Visit Admit Date AVN of femur October 31, 2024 9 :16am Gout October 31, 2024 9 :16am Hip pain October 31, 2024 9 :16am History of coronary artery bypass surger y October 31, 2024 9:16am Chief Complaint Admit Date RIGHT HIP January 09, 2025 8:5 8am Room 2 January 09, 2025 9:3 0am RIGHT HIP February 06, 2025 7:5 7am RM 2 February 06, 2025 8:1 1am EORDER February 06, 2025 8:4 2am EORDERS- LEFT FOOT March 16, 2025 4:33p m Reason for Visit Admit Date AVN of femur January 09, 2025 8:5 8am Gout January 09, 2025 8:5 8am Hip pain January 09, 2025 8:5 8am Tobacco abuse January 09, 2025 8:5 8am AVN of femur February 06, 2025 7:5 7am Gout February 06, 2025 7:5 7am Hip pain February 06, 2025 7:5 7am Tobacco abuse February 06, 2025 7:5 7am Chief Complaint Admit Date RIGHT HIP January 09, 2025 8:5 8am Room 2 January 09, 2025 9:3 0am RIGHT HIP February 06, 2025 7:5 7am RM 2 February 06, 2025 8:1 1am EORDER February 06, 2025 8:4 2am EORDERS- LEFT FOOT March 16, 2025 4:33p m RIGHT HIP 2025 11:1 8am RM 4 2025 11:3 1am Reason for Visit Admit Date AVN of femur January 09, 2025 8:5 8am Gout January 09, 2025 8:5 8am Hip pain January 09, 2025 8:5 8am Tobacco abuse January 09, 2025 8:5 8am AVN of femur February 06, 2025 7:5 7am Gout February 06, 2025 7:5 7am Hip pain February 06, 2025 7:5 7am Tobacco abuse February 06, 2025 7:5 7am AVN of femur 2025 11:1 8am Chief Complaint Admit Date RIGHT HIP February 06, 2025 7:5 7am RM 2 February 06, 2025 8:1 1am EORDER February 06, 2025 8:4 2am EORDERS- LEFT FOOT March 16, 2025 4:33p m RIGHT HIP 2025 11:1 8am RM 4 2025 11:3 1am templating for right JENNIE May 13, 2025 6:44pm 6 M FU May 14, 2025 10:1 3am Reason for Visit Admit Date AVN of femur February 06, 2025 7:5 7am Gout February 06, 2025 7:5 7am Hip pain February 06, 2025 7:5 7am Tobacco abuse February 06, 2025 7:5 7am AVN of femur 2025 11:1 8am Atherosclerotic heart diseas e of [place] coronary artery without angina pectoris May 14, 2025 10:13am High cholesterol May 14, 2025 10:1 3am Preop cardiovascular exam May 14 10:13am Family History No Family History Records Found Relationship Condition Age at Onset Recorded Date/T sivan grandmother Malignant neoplasm of breast Unknown father Malignant neoplasm of prostate Unknown Malignant neoplasm of skin Unknown mother Hypertension Unknown High blood cholesterol Unknown Relationship Condition Age at Onset Recorded Date/T sivan grandmother Malignant neoplasm of breast Unknown father Malignant neoplasm of prostate Unknown Malignant neoplasm of skin Unknown Coronary artery disease Unknown mother Hypertension Unknown High blood cholesterol Unknown grandfather Coronary artery disease Unknown Advance Directives No Advanced Directives Records Found Advance Directive Response Recorded Date/ Time Living Will No November 08 7:38am Power of Blood Bank Laboratory Technologist No November 08, 2022 7:38am Advance Directive Response Recorded Date/ Time Living Will No November 08 10:53am Power of Blood Bank Laboratory Technologist No November 08, 2022 10:53am Latest Code Status on File Code Status Date Activated Date Inactivated Comments Full Code 11/13/2022 7:45 PM Code Status History Code Status Date Activated Date Inactivated Comments Full Code 11/09/2022 12:14 AM 11/13/2022 7:45 PM Latest Code Status on File Code Status Date Activated Date Inactivated Comments Full Code 11/13/2022 7:45 PM Code Status History Code Status Date Activated Date Inactivated Comments Full Code 11/09/2022 12:14 AM 11/13/2022 7:45 PM Advance Directive Response Recorded Date/ Time Living Will No November 08 11:53am Power of Blood Bank Laboratory Technologist No November 08, 2022 11:53am Advance Directive Response Recorded Date/ Time Living Will No March 29, 2023 8:27am Power of Blood Bank Laboratory Technologist No March 29 8:27am Advance Directive Response Recorded Date/ Time Living Will No March 29, 2023 7:27am Power of Blood Bank Laboratory Technologist No March 29 7:27am Advance Directive Response Recorded Date/ Time Living Will No September 29, 6:02pm Do you have a Healthcare Power of Blood Bank Laboratory Technologist? No September 29, 2024 6:02pm Summary Purpose Additional Source Comments Care Teams (unrecognized sec tion and content) Team Status: Active Member Role Status Dates Dr. Denys Cuello MD Primary Care Provider Active Team Status: Inactive Member Role Status Dates Dr. Denys Cuello MD Primary Care P rovider, Attending Provider, Referring Provider Active Team Status: Inactive Member Role Status Dates Dr. Denys Cuello MD Primary Care Provider, Refer ring Provider Active Charla Dunn MOLDED GOODS OPERATOR, MOLDED GOODS OPERATOR-C Attending Provider Active Team Status: Active Member Role Status Dates Dr. Denys Cuello MD Primary Care Provider Active Dr. Timmy Infante MD Attending Provider Active Team Status: Inactive Member Role Status Dates Dr. Denys Cuello MD Primary Care Provider, Refer ring Provider Active Dr. Mesfin Brunner MD Attending Provider Active Team Status: Inactive Member Role Status Dates Dr. Denys Cuello MD Primary Care Provider, Refer ring Provider Active Leeroy Zapata PA, PA Attending Provider Active Team Status: Active Member Role Status Dates Dr. Denys Cuello MD Primary Care Provider, Refer ring Provider Active Dr. Mesfin Brunner MD Attending Provider, Other Provider Active Team Status: Inactive Member Role Status Dates Dr. Denys Cuello MD Primary Care Provider Active Charla Dunn MOLDED GOODS OPERATOR, MOLDED GOODS OPERATOR-C Attending Provider Active Team Status: Inactive Member Role Status Dates Dr. Denys Cuello MD Primary Care Provider, Atten ding Provider Active Team Status: Active Member Role Status Dates Dr. Denys Cuello MD Primary Care Provider Active Dr. Emelia Win MD Emergency Provider Active Dr. Marianne Estevez DO Admit Provider, Attending Provide r Active Dr. Timmy Infante MD Other Provider Active Team Status: Active Member Role Status Dates Dr. Denys Cuello MD Primary Care Provider Active Dr. Emelia Win MD Emergency Provider Active Dr. Marianne Estevez , Admit Provider, Other Provider Ac tive Dr. Timmy Infante MD Attending Provider, Other Prov ider Active Team Status: Active Member Role Status Dates Dr. Denys Cuello MD Primary Care Provider Active Dr. Emelia Win MD Emergency Provider Active Dr. Marianne Estevez DO Admit Provider, Att ending Provider, Other Provider Active Dr. Timmy Infante MD Other Provider Active Team Status: Inactive Member Role Status Dates Dr. Denys Cuello MD Primary Care Provider Active Dr. Emelia Win MD Emergency Provider Active Dr. Marianne Estevez DO Admit Provider, Attending Provide r Active Dr. Timmy Infante MD Other Provider Active Apiarist Relationship Specialty Start Date End Date Denys Cuello MD [address] [id number] PCP - General Internal Medicine 11/09/22 Team Status: Active Member Role Status Dates Dr. Denys Cuello MD Primary Care Provider Active Dr. Emelia Win MD Emergency Provider Active Dr. Marianne Estevez DO Admit Provider, Other Provider Ac tive Dr. Timmy Infante MD Attending Provid er, Referring Provider, Other Provider Active Team Status: Active Member Role Status Dates Dr. Denys Cuello MD Primary Care Provider Active Becky Arreola Attending Provider Active Apiarist Relationship Specialty Start Date End Date Denys Cuello MD [address] [phone] PCP - General Internal Medicine 11/09/22 Team Status: Inactive Member Role Status Dates Dr. Denys Cuello MD Primary Care Provider Active Charla Dunn MOLDED GOODS OPERATOR, MOLDED GOODS OPERATOR-C Attending Provider, Referring Armando aguila Active Team Status: Inactive Member Role Status Dates Dr. Denys Cuello MD Primary Care Provider, Refer ring Provider Active Selwyn EUGENE, PA Attending Provider Active Team Status: Active Member Role Status Dates Dr. Denys Cuello MD Primary Care Provider Active Charla Dunn MOLDED GOODS OPERATOR, MOLDED GOODS OPERATOR-C Referring Provider, Other Provi iam Active Dr. Velasquez Diop MD Attending Provider Active Team Status: Active Member Role Status Dates Dr. Denys Cuello MD Primary Care Provider Active Charla Dunn MOLDED GOODS OPERATOR, MOLDED GOODS OPERATOR-C Attending Provider Active Apiarist Relationship Specialty Start Date End Date Denys Cuello MD [address] [place] [address] PCP - General Internal Medicine 07/15/24 Apiarist Relationship Specialty Start Date End Date Denys Cuello MD [address] [place] [address] PCP - General Internal Medicine 07/15/24 Apiarist Relationship Specialty Start Date End Date Denys Cuello MD [address] [place] [address] PCP - General Internal Medicine 07/15/24 Team Status: Active Member Role Status Dates Svitlana Becerril MD Primary Care Provider Active Team Status: Inactive Member Role Status Dates Dr. Denys Cuello MD Primary Care Provider Active Start: September 29, 2024 End: September 29, 2024 Dr. Gianni Hernandez , DO Attending Provider Activ e Start: September 29, 2024 End: September 29, 2024 Dr. Gianni Hernandez , DO Emergency Provider Activ e Start: September 29, 2024 End: September 29, 2024 Team Status: Inactive Member Role Status Dates Svitlana Becerril MD Primary Care Provider Active St art: October 20, 2024 End: October 20, 2024 Svitlana Becerril MD Attending Provider Active Start : October 20, 2024 End: October 20, 2024 Svitlana Becerril MD Referring Provider Active Start : October 20, 2024 End: October 20, 2024 Team Status: Inactive Member Role Status Anum Becerril MD Primary Care Provider Active St art: October 31, 2024 End: October 31, 2024 Svitlana Becerril MD Referring Provider Active Start : October 31, 2024 End: October 31, 2024 Dr. Neville Mccall DO Attending Provider Active Start: October 31, 2024 End: October 31, 2024 Team Status: Inactive Member Role Status Anum Becerril MD Primary Care Provider Active St art: October 31, 2024 End: October 31, 2024 Dr. Lalito Zamora MD Attending Provider Active Start: October 31, 2024 End: October 31, 2024 Dr. Lalito Zamora MD Referring Provider Active Start: October 31, 2024 End: October 31, 2024 Team Status: Inactive Member Role Status Anum Becerril MD Primary Care Provider Active St art: December 26, 2024 End: December 26, 2024 Dr. Timmy Manzano MD Attending Provider Active Start: December 26, 2024 End: December 26, 2024 Dr. Timmy Manzano MD Referring Provider Active Start: December 26, 2024 End: December 26, 2024 Team Status: Inactive Member Role Status Anum Becerril MD Primary Care Provider Active St art: January 09, 2025 End: January 09, 2025 Svitlana Becerril MD Referring Provider Active Start : January 09, 2025 End: January 09, 2025 Dr. Neville Mccall DO Attending Provider Active Start: January 09, 2025 End: January 09, 2025 Team Status: Inactive Member Role Status Anum Becerril MD Primary Care Provider Active St art: January 09, 2025 End: January 09, 2025 Dr. Velasquez Dipo MD Attending Provider Active S tart: January 09, 2025 End: January 09, 2025 Team Status: Inactive Member Role Status Anum Becerril MD Primary Care Provider Active St art: February 06, 2025 End: February 06, 2025 Svitlana Becerril MD Referring Provider Active Start : February 06, 2025 End: February 06, 2025 Dr. Neville Mccall DO Attending Provider Active Start: February 06, 2025 End: February 06, 2025 Team Status: Inactive Member Role Status Anum Becerril MD Primary Care Provider Active St art: February 06, 2025 End: February 06, 2025 Dr. Velasquez Diop MD Attending Provider Active S tart: February 06, 2025 End: February 06, 2025 Team Status: Inactive Member Role Status Anum Becerril MD Primary Care Provider Active St art: February 06, 2025 End: February 06, 2025 Dr. Neville Mccall DO Attending Provider Active Start: February 06, 2025 End: February 06, 2025 Dr. Neville Mccall DO Referring Provider Active Start: February 06, 2025 End: February 06, 2025 Team Status: Inactive Member Role Status Anum Becerril MD Primary Care Provider Active St art: March 16, 2025 End: March 16, 2025 Svitlana Becerril MD Attending Provider Active Start : March 16, 2025 End: March 16, 2025 Svitlana Becerril MD Referring Provider Active Start : March 16, 2025 End: March 16, 2025 Team Status: Active Member Role/Relationship Status Anum Becerril MD Primary Care Provider Active Team Status: Inactive Member Role/Relationship Status Anum Becerril MD Primary Care Provider Active St art: December 26, 2024 End: December 26, 2024 Dr. Timmy Manzano MD Attending Provider Active Start: December 26, 2024 End: December 26, 2024 Dr. Timmy Manzano MD Referring Provider Active Start: December 26, 2024 End: December 26, 2024 Team Status: Inactive Member Role/Relationship Status Anum Becerril MD Primary Care Provider Active St art: January 09, 2025 End: January 09, 2025 Svitlana Becerril MD Referring Provider Active Start : January 09, 2025 End: January 09, 2025 Dr. Neville Mccall DO Attending Provider Active Start: January 09, 2025 End: January 09, 2025 Team Status: Inactive Member Role/Relationship Status Anum Becerril MD Primary Care Provider Active St art: January 09, 2025 End: January 09, 2025 Dr. Velasquez Diop MD Attending Provider Active S tart: January 09, 2025 End: January 09, 2025 Team Status: Inactive Member Role/Relationship Status Anum Becerril MD Primary Care Provider Active St art: February 06, 2025 End: February 06, 2025 Svitlana Becerril MD Referring Provider Active Start : February 06, 2025 End: February 06, 2025 Dr. Neville Mccall DO Attending Provider Active Start: February 06, 2025 End: February 06, 2025 Team Status: Inactive Member Role/Relationship Status Anum Becerril MD Primary Care Provider Active St art: February 06, 2025 End: February 06, 2025 Dr. Velasquez Diop MD Attending Provider Active S tart: February 06, 2025 End: February 06, 2025 Team Status: Inactive Member Role/Relationship Status Anum Becerril MD Primary Care Provider Active St art: February 06, 2025 End: February 06, 2025 Dr. Neville Mccall DO Attending Provider Active Start: February 06, 2025 End: February 06, 2025 Dr. Neville Mccall DO Referring Provider Active Start: February 06, 2025 End: February 06, 2025 Team Status: Inactive Member Role/Relationship Status Anum Becerril MD Primary Care Provider Active St art: March 16, 2025 End: March 16, 2025 Svitlana Becerril MD Attending Provider Active Start : March 16, 2025 End: March 16, 2025 Svitlana Becerril MD Referring Provider Active Start : March 16, 2025 End: March 16, 2025 Team Status: Active Member Role/Relationship Status Anum Becerril MD Primary Care Provider Active St art: 2025 Svitlana Becerril MD Referring Provider Active Start : 2025 Dr. Neville Mccall DO Attending Provider Active Start: 2025 Team Status: Inactive Member Role/Relationship Status Anum Becerril MD Primary Care Provider Active St art: 2025 End: 2025 Dr. Velasquez Diop MD Attending Provider Active S tart: 2025 End: 2025 Team Status: Inactive Member Role/Relationship Status Anum Becerril MD Primary Care Provider Active St art: 2025 End: 2025 Svitlana Becerril MD Referring Provider Active Start : 2025 End: 2025 Dr. Neville Mccall DO Attending Provider Active Start: 2025 End: 2025 Team Status: Inactive Member Role/Relationship Status Anum Becerril MD Primary Care Provider Active St art: February 06, 2025 End: February 06, 2025 Svitlana Becerril MD Referring Provider Active Start : February 06, 2025 End: February 06, 2025 Dr. Neville Mccall DO Attending Provider Active Start: February 06, 2025 End: February 06, 2025 Team Status: Inactive Member Role/Relationship Status Anum Becerril MD Primary Care Provider Active St art: February 06, 2025 End: February 06, 2025 Dr. Velasquez Diop MD Attending Provider Active S tart: February 06, 2025 End: February 06, 2025 Team Status: Inactive Member Role/Relationship Status Anum Becerril MD Primary Care Provider Active St art: February 06, 2025 End: February 06, 2025 Dr. Neville Mccall DO Attending Provider Active Start: February 06, 2025 End: February 06, 2025 Dr. Neville Mccall DO Referring Provider Active Start: February 06, 2025 End: February 06, 2025 Team Status: Inactive Member Role/Relationship Status Anum Becerril MD Primary Care Provider Active St art: March 16, 2025 End: March 16, 2025 Svitlana Becerril MD Attending Provider Active Start : March 16, 2025 End: March 16, 2025 Svitlana Becerril MD Referring Provider Active Start : March 16, 2025 End: March 16, 2025 Team Status: Inactive Member Role/Relationship Status Anum Becerril MD Primary Care Provider Active St art: 2025 End: 2025 Svitlana Becerril MD Referring Provider Active Start : 2025 End: 2025 Dr. Neville Mccall DO Attending Provider Active Start: 2025 End: 2025 Team Status: Inactive Member Role/Relationship Status Anum Becerril MD Primary Care Provider Active St art: 2025 End: 2025 Dr. Velasquez Diop MD Attending Provider Active S tart: 2025 End: 2025 Team Status: Active Member Role/Relationship Status Anum Becerril MD Primary Care Provider Active St art: May 13, 2025 Dr. Neville Mccall DO Attending Provider Active Start: May 13, 2025 Dr. Neville Mccall DO Referring Provider Active Start: May 13, 2025 Team Status: Inactive Member Role/Relationship Status Dates Svitlana Becerril MD Primary Care Provider Active St art: May 14, 2025 End: May 14, 2025 Svitlana Becerril MD Referring Provider Active Start : May 14, 2025 End: May 14, 2025 Andre Galeas MOLDED GOODS OPERATOR, MOLDED GOODS OPERATOR-C Attending Provider Active S tart: May 14, 2025 End: May 14, 2025 Goals (unrecognized section and content) Goals may be documented in a n alternate sectionGoals may be documented in an alternate sectionGoals may be documented in an alternate sectionGoals may be documented in an alternate sectionGoals may be documented in an alternate sectionGoals may be documented in an alternate sectionGoals may be documented in an alternate sectionGoals may be documented in an alternate sectionGoals may be documented in an alternate sectionGoals may be documented in an alternate sectionGoals may be documented in an alternate sectionGoals may be documented in an alternate sectionGoals may be documented in an alternate section Scheduled Active and Recently Administ ered Medications (unrecognized section and content) Medication Order 11/16/2022 11/17/2022 11/18/2022 Acetaminophen (TYLENOL) tablet 650 mg (COMPLETED) 650 mg, Oral, 4 TIMES DAILY, 12 doses, First dose on Sun11/14/22 at 0900, Last dose on Sun11/16/22 at 2100, Maximum dose of acetaminophen is 4000 mg from all sources in 24 hours., Post-op/Post-Proc 0850 (Given - Provider: Jen Carlson RN)1355 (Given - Provider: Jen Carlson RN)1808 (Given - Provider: Jen Carlson RN)2003 (Given - Provider: Rafaela Ramirez RN) AMIOdarone (PACERONE) tablet 200 mg 200 mg, Oral, DAILY, 8 doses, First dose on Sun11/15/22 at 0900, Last dose on Sun11/22/22 at 0900, 0851 (Given - Provider: Jen Carlson RN) 0850 (Given - Provider: Jen Carlson RN) 0748 (Given - Provider: Yesenia Hobbs, RN) aspirin chewable tablet 81 mg 81 mg, Oral, DAILY, First dose on Sun11/14/22 at 0900, Until Discontinued, Start POD#1., Post-op/Post-Proc 0852 (Given - Provider: Jen Carlson RN) 0850 (Given - Provider: Jen Carlson RN) 0748 (Given - Provider: Yesenia Hobbs, RN) Atorvastatin (LIPITOR) tablet 80 mg 80 mg, Oral, DAILY AT BEDTIME, First dose on Sun11/14/22 at 2100, Until Discontinued 2003 (Given - Provider: Rafaela Ramirez RN) 2013 (Given - Provider: Rafaela Ramirez RN) balsam-castor oil (VENELEX) ointment 1 Application 1 Application, Topical, 3 TIMES DAILY, First dose on Sun11/13/22 at 2100, Until Discontinued, Apply to bony prominences (like back, heels, elbows, sacrum, etc.) to promote circulation., ICU 0853 (Not Given - Provider: Jen Carlson RN - Reason: Patient/family refused)1354 (Not Given - Provider: Jen Carlson RN - Reason: Patient/family refused)2140 (Not Given - Provider: Rafaela Ramirez RN - Reason: Patient/family refused) 0852 (Not Given - Provider: Jen Carlson RN - Reason: Patient/family refused)1314 (Not Given - Provider: Jen Carlson RN - Reason: Patient/family refused)202 (Not Given - Provider: Rafaela Ramirez RN - Reason: Patient/family refused) 0817 (Not Given - Provider: Yesenia Hobbs RN - Reason: Patient/family refused) bisacodyl (DULCOLAX) suppository 10 mg 10 mg, Rectal, DAILY, First dose on Sun11/15/22 at 0900, Until Discontinued, Start POD#2, Hold for loose stools or positive bowel movement in the last 48 hours., Post-op/Post-Proc 0853 (Not Given - Provider: Jen Carlson RN - Reason: Order Parameters not met) 0851 (Not Given - Provider: Jen Carlson RN - Reason: Order Parameters not met) 0817 (Not Given - Provider: Yesenia Hobbs RN - Reason: Order Parameters not met) Clopidogrel (PLAVIX) tablet 75 mg 75 mg, Oral, DAILY, First dose on Sun11/15/22 at 1600, Until Discontinued 0850 (Given - Provider: Jen Carlson RN) 0850 (Given - Provider: Jen Carlson RN) 0748 (Given - Provider: Yesenia Hobbs RN) furOSEmide (LASIX) tablet 20 mg (CANCELED) 20 mg, Oral, 2 TIMES DAILY BEFORE MEALS, First dose (after last modification) on Sun11/17/22 at 0745, Until Discontinued 0850 (Given - Provider: Jen Carlson RN)1615 (Given - Provider: Jamila Ortez RN) furOSEmide (LASIX) tablet 20 mg (COMPLETED) 20 mg, Oral, ONCE, 1 dose, On Sun11/17/22 at 1845 1843 (Given - Provider: Jamila Ortez RN) furOSEmide (LASIX) tablet 40 mg (CANCELED) 40 mg, Oral, 2 TIMES DAILY BEFORE MEALS, First dose (after last modification) on Mirlande 11/16/22 at 0745, Until Discontinued 0851 (Given - Provider: Jen Carlson RN)1808 (Given - Provider: Jen Carlson RN) furOSEmide (LASIX) tablet 40 mg 40 mg, Oral, 2 TIMES DAILY BEFORE MEALS, First dose (after last modification) on 11/18/22 at 0745, Until Discontinued 0748 (Given - Provider: Yesenia Hobbs RN) Gabapentin (NEURONTIN) capsule 300 mg 300 mg, Oral, 3 TIMES DAILY, First dose on Sun11/15/22 at 1400, Until Discontinued 0851 (Given - Provider: Jen Carlson RN)1355 (Given - Provider: Jen Carlson RN)2004 (Given - Provider: Rafaela Ramirez RN) 0849 (Given - Provider: Jen Carlson RN)1314 (Given - Provider: Jen Carlson RN)2013 (Given - Provider: Rafaela Ramirez RN) 0748 (Given - Provider: Yesenia Hobbs RN) Heparin injection 5,000 Units(Linked Group 1) 5,000 Units, Subcutaneous, EVERY 8 HOURS (0800/1600/2200), First dose on Sun11/14/22 at 0800, Until Discontinued 0850 (Given - Provider: Jen Carlson RN)1808 (Given - Provider: Jen Carlson RN)2130 (Given - Provider: Rafaela Ramirez RN) 0853 (Given - Provider: Jen Carlson RN)1616 (Given - Provider: Jamila Ortez RN)2100 (Given - Provider: Rafaela Ramirez RN) 0805 (Given - Provider: Yesenia Hobbs RN) lidocaine 4 % patch 2 patch 2 patch, Transdermal, Administer over 12 Hours, EVERY 24 HOURS, First dose on Sun11/14/22 at 0830, Until Discontinued, Apply to median sternotomy incision bilaterally 0852 (Patch Applied - Provider: Jen Carlson RN)2005 (Patch Removed - Provider: Rafaela Ramirez RN) 0850 (Patch Applied - Provider: Jen Carlson RN)2007 (Patch Removed - Provider: Rafaela Ramirez RN) 0748 (Patch Applied - Provider: Yesenia Hobbs RN)1034 (Due: Patch Removed - Provider: System Discharge - Comment: Time automatically adjusted from order being discontinued) magnesium oxide (MAG-OX) tablet 400 mg (CANCELED) 400 mg, Oral, 2 TIMES DAILY, First dose on Sun11/16/22 at 2030, Until Discontinued 2244 (Given - Provider: Rafaela Ramirez RN) 0849 (Given - Provider: Jen Carlson RN)1615 (Given - Provider: Jamila Ortez RN) magnesium oxide (MAG-OX) tablet 800 mg 800 mg, Oral, 2 TIMES DAILY, First dose (after last modification) on Sun11/18/22 at 0900, Until Discontinued 0748 (Given - Provider: Yesenia Hobbs, RN) Melatonin tablet 6 mg 6 mg, Oral, DAILY AT BEDTIME, First dose on Sun11/15/22 at 0445, Until Discontinued 2003 (Given - Provider: Rafaela Ramirez RN) 2013 (Given - Provider: Rafaela Ramirez RN) Metoprolol (LOPRESSOR) tablet 12.5 mg 12.5 mg, Oral, EVERY 12 HOURS, First dose on 1/31/23 at 2100, Until Discontinued, For all post-operative patients starting POD #1 for atrial fibrillation prophylaxis. Hold for Heart Rate less than 65 and Systolic Blood Pressure less than 100bpm or hold if patient is receiving inotropes (dobutamine, epinephrine, milrinone) or pressors (vasopressin, dopamine, norepinephrine, phenylephrine, isoproterenol)., Post-op/Post-Proc 0851 (Given - Provider: Jen Carlson RN)2003 (Given - Provider: Rafaela Ramirez RN) 0850 (Given - Provider: Jen Carlson RN)2013 (Given - Provider: Rafaela Ramirez RN) 0748 (Given - Provider: Yesenia Hobbs, RN) Multi-Vitamins tablet 1 tablet 1 tablet, Oral, DAILY, First dose on Sun11/14/22 at 0900, Until Discontinued, Use PO route if patient tolerating PO., Post-op/Post-Proc 0851 (Given - Provider: Jen Carlson RN) 0850 (Given - Provider: Jen Carlson RN) 0748 (Given - Provider: Yesenia Hobbs, RN) nicotine (NICODERM CQ) 7 MG/24HR patch 1 patch(Linked Group 2) 1 patch, Transdermal, EVERY 24 HOURS, First dose on Sun11/14/22 at 0800, Until Discontinued, Apply patch to hairless skin site on upper body or arm. Rotate sites for each application. Do not cut or alter patch. Remove patch after duration of 16-24 hours. To dispose, fold adhesive ends together. 0854 (Patch Removed - Provider: Jen Carlson RN)0855 (Patch Applied - Provider: Jen Carlson RN) 0849 (Patch Removed - Provider: Jen Carlson RN)0851 (Patch Applied - Provider: Jen Carlson RN) 0747 (Patch Applied - Provider: Yesenia Hobbs, RN)1034 (Due: Patch Removed - Provider: System Discharge - Comment: Time automatically adjusted from order being discontinued) Polyethylene glycol (MIRALAX) packet 17 g 17 g, Oral, 2 TIMES DAILY, First dose on Sun11/14/22 at 0900, Until Discontinued, Start POD#1, Hold for loose stools or positive bowel movement in the last 48 hours., Post-op/Post-Proc 0853 (Not Given - Provider: Jen Carlson RN - Reason: Order Parameters not met)1809 (Not Given - Provider: Jen Carlson RN - Reason: Order Parameters not met) 0852 (Not Given - Provider: Jen Carlson RN - Reason: Order Parameters not met)1615 (Not Given - Provider: Jamila Ortez RN - Reason: Order Parameters not met) 0817 (Not Given - Provider: Yesenia Hobbs RN - Reason: Patient/family refused) Potassium chloride (K-DUR) tablet ER 20 mEq 20 mEq, Oral, 2 TIMES DAILY, First dose on Sun11/16/22 at 2030, Until Discontinued 2244 (Given - Provider: Rafaela Ramirez RN) 0849 (Given - Provider: Jen Carlson RN)1615 (Given - Provider: Jamila Ortez RN) 0748 (Given - Provider: Yesenia Hobbs, RN) Senna (SENOKOT) tablet 8.6 mg 8.6 mg, Oral, EVERY 12 HOURS, First dose (after last modification) on Sun11/15/22 at 0900, Until Discontinued, Post-op/Post-Proc 0852 (Given - Provider: Jen Carlson RN)2003 (Given - Provider: Rafaela Ramirez RN) 0849 (Given - Provider: Jen Carlson RN)2013 (Given - Provider: Rafaela Ramirez RN) 0818 (Not Given - Provider: Yesenia Hobbs RN - Reason: Patient/family refused) VERIFY LINKED PATCH PLACEMENT(Linked Group 2) Other, EVERY 12 HOURS, First dose on Sun11/14/22 at 0900, Until Discontinued, Confirm continued adhesion of nicotine 7 mg/24hr patch at documented site. 0856 (Patch Verify - Provider: Jen Carlson RN)2005 (Patch Verify - Provider: Rafaela Ramirez, CHRISTOFER) 0851 (Patch Verify - Provider: Jen Carlson RN)2021 (Patch Verify - Provider: Rafaela Ramirez RN) 0806 (Patch Verify - Provider: Yesenia Hobbs, RN) PRN Medication Order 11/16/2022 11/17/2022 11/18/2022 Acetaminophen (TYLENOL) tablet 650 mg 650 mg, Oral, EVERY 4 HOURS NEEDED, Starting on Sun11/17/22 at 0000, Until 11/18/22 at 1234, Mild Pain, Moderate Pain, Severe Pain, Oral temp > 100.4 F, For mild, moderate, or severe pain (DVPRS) or CPOT greater than 2. Ok to give with opioid if frequency allows., Post-op/Post-Proc 0749 (Given - Provider: Yesenia Hobbs RN) Calcium Gluconate 10 % injection 2 g(Linked Group 3) 2 g, Intravenous, ADMINISTER DIRECTED, Starting on 11/13/22 at 1945, Until 11/18/22 at 1234, See admin instructions, 1. If ionized Calcium 4.1-4.5, give 2.0 gm of Calcium Gluconate IV Push over 10 minutes 2. If Calcium less than or equal to 4.0, give 4 gm Calcium Gluconate/250 mL NS IVPB over 1 hour and recheck 1 hour after completion of infusion. Repeat labs in AM. Extravasation Risk, Post-op/Post-Proc Calcium Gluconate 4 g in Sodium chloride 0.9%, with overfill 150 mL (total volume) IVPB(Linked Group 3) 4 g, Intravenous, Administer over 60 Minutes, ADMINISTER DIRECTED, Starting on 11/13/22 at 1945, Until 11/18/22 at 1234, See admin instructions, 1. If ionized Calcium 4.1-4.5, give 2.0 gm of Calcium Gluconate IV Push over 10 minutes 2. If Calcium less than or equal to 4.0, give 4 gm Calcium Gluconate/250 mL NS IVPB over 1 hour and recheck 1 hour after completion of infusion. Repeat labs in AM. Extravasation Risk, Post-op/Post-Proc Magnesium sulfate 4 g in sterile water 50 ml premix IVPB 4 g, Intravenous, Administer over 4 Hours, ADMINISTER DIRECTED, Starting on 11/13/22 at 1945, Until 11/18/22 at 1234, Other, Magnesium replacement therapy:, 1. If Magnesium 1.7-2.4, Give 4 g Magnesium Sulfate IVPB. 2. If Magnesium less than or equal to 1.6, Give 8g Magnesium Sulfate IVPB. 3. Recheck Magnesium level 4 hours after completion of infusion., Post-op/Post-Proc 0742 ($$New Bag$$ - Provider: Rafaela Ramirez RN)0744 (Rate/Dose Verify - Provider: Jen Carlson RN)0932 (Rate/Dose Verify - Provider: Jen Carlson RN)1146 (Stopped - Provider: Jen Carlson RN) 0601 ($$New Bag$$ - Provider: Rafaela Ramirez RN)1003 (Stopped - Provider: Jen Carlson RN) 0559 ($$New Bag$$ - Provider: Rafaela Ramirez RN)0939 (Stopped - Provider: Yesenia Hobbs RN) Ondansetron 4mg/2ml (ZOFRAN) injection 4 mg 4 mg, Intravenous, EVERY 4 HOURS NEEDED, Starting on Sun11/13/22 at 1945, Until 11/18/22 at 1234, Nausea / Vomiting, Post-op/Post-Proc oxyCODONE (ROXICODONE) tablet 5 mg 5 mg, Oral, EVERY 4 HOURS NEEDED, Starting on Sun11/13/22 at 1945, Until 11/18/22 at 1234, Moderate Pain, Severe Pain, PRN for moderate pain or severe pain (DVPRS) or CPOT>2. Use first if PO/NG administration available., Post-op/Post-Proc 0851 (Given - Provider: Jen Carlson RN) Potassium Bicarb-Citric Acid (Effer-K) 20 MEQ effervescent tablets for oral solution 20-60 mEq 20-60 mEq, Oral, ADMINISTER DIRECTED, Starting on Sun11/15/22 at 0131, Until 11/18/22 at 1234, Other, See administration instructions, 1. If Creatinine less than 2.0 mg/dL and/or urine output greater than 30 mL/hour. 2. If Potassium is 4.1-4.4, give 20 mEq Potassium Chloride oral. 3. If Potassium is 3.6-4.0, give 40 mEq Potassium Chloride oral. 4. If Potassium less than 3.6, give 60 mEq Potassium Chloride orally, recheck in 8 hours. 5. If Potassium low, replace Magnesium first if indicated. Do not swallow whole. Dissolve completely in 3-4 ounces of water or cold juice before drinking. If administering via J tube, dilute in sterile water, wait for tablet to stop fizzing, swirl the solution and draw into a syringe suitable for attaching to the tube. After administration, flush tube with 15-30 ml water. Potassium chloride (K-DUR) tablet ER 20-60 mEq 20-60 mEq, Oral, ADMINISTER DIRECTED, Starting on Sun11/15/22 at 0131, Until 11/18/22 at 1234, See admin instructions, 1. If Creatinine less than 2.0 mg/dL and/or urine output greater than 30 mL/hour. 2. If Potassium is 4.1-4.4, give 20 mEq Potassium Chloride oral. 3. If Potassium is 3.6-4.0, give 40 mEq Potassium Chloride oral. 4. If Potassium less than 3.6, give 60 mEq Potassium Chloride orally, recheck in 8 hours. 5. If Potassium low, replace Magnesium first if indicated. 0839 (Given - Provider: Jen Carlson, RN) 0595 (Given - Provider: Rafaela Ramirez RN) simethicone (MYLICON) chewable tablet 160 mg 160 mg, Oral, EVERY 4 HOURS NEEDED, Starting on Sun11/14/22 at 1423, Until 11/18/22 at 1234, Gas, Other, Abdominal Discomfort traZODone (DESYREL) tablet 50 mg 50 mg, Oral, DAILY AT BEDTIME NEEDED, Starting on Sun11/15/22 at 0435, Until 11/18/22 at 1234, Sleep Linked Groups Order Group 1: Heparin injection 5,000 UnitsJump to med 5,000 Units, Subcutaneous, EVERY 8 HOURS (0800/1600/2200), First dose on Sun11/14/22 at 0800, Until Discontinued And PLATELET COUNT (CANCELED) Routine, EVERY 3 DAYS AM LAB, First occurrence on Sun11/13/22 at 1958, Until Specified, New collection Group 2: nicotine (NICODERM CQ) 7 MG/24HR patch 1 patchJump to med 1 patch, Transdermal, EVERY 24 HOURS, First dose on Sun11/14/22 at 0800, Until Discontinued
Apply patch to hairless skin site on upper body or arm. Rotate sites for each application. Do not cut or alter patch. Remove patch after duration of 16-24 hours. To dispose, fold adhesive ends together.
And VERIFY LINKED PATCH PLACEMENTJump to med Other, EVERY 12 HOURS, First dose on Sun11/14/22 at 0900, Until Discontinued
Confirm continued adhesion of nicotine 7 mg/24hr patch at documented site.
Group 3: Calcium Gluconate 10 % injection 2 gJump to med 2 g, Intravenous, ADMINISTER DIRECTED, Starting on Sun11/13/22 at 1945, Until 11/18/22 at 1234, See admin instructions
1. If ionized Calcium 4.1-4.5, give 2.0 gm of Calcium Gluconate IV Push over 10 minutes 2. If Calcium less than or equal to 4.0, give 4 gm Calcium Gluconate/250 mL NS IVPB over 1 hour and recheck 1 hour after completion of infusion. Repeat labs in AM. Extravasation Risk
Post-op/Post-Proc Or Calcium Gluconate 4 g in Sodium chloride 0.9%, with overfill 150 mL (total volume) IVPBJump to med 4 g, Intravenous, Administer over 60 Minutes, ADMINISTER DIRECTED, Starting on Sun11/13/22 at 1945, Until 11/18/22 at 1234, See admin instructions
1. If ionized Calcium 4.1-4.5, give 2.0 gm of Calcium Gluconate IV Push over 10 minutes 2. If Calcium less than or equal to 4.0, give 4 gm Calcium Gluconate/250 mL NS IVPB over 1 hour and recheck 1 hour after completion of infusion. Repeat labs in AM. Extravasation Risk
Post-op/Post-Proc (unrecognized sect ion and content) No Status Records FoundNo Status Records FoundNo Status Records FoundNo Status Records Found INFORMATION SOURCE (unrecogn ized section and content) DATE CREATED AUTHOR 12/15/2022 [facility] DATE CREATED AUTHOR AUTHOR'S ORGANIZ ATION 10/02/2024 [facility] DATE CREATED AUTHOR AUTHOR'S ORGANIZ ATION 10/03/2024 [facility] DATE CREATED AUTHOR AUTHOR'S ORGANIZ ATION 05/16/2025 [facility] Source Comments (unrecognize d section and content) In the event this informatio n is protected by the Federal Confidentiality of Alcohol and Drug Abuse Patient Records regulations: The Federal rules restrict any use of the information to criminally investigate or prosecute any alcohol or drug abuse patient.[facility] the event this information is protected by the Federal Confidentiality of Alcohol and Drug Abuse Patient Records regulations: The Federal rules restrict any use of the information to criminally investigate or prosecute any alcohol or drug abuse patient.[facility] the event this information is protected by the Federal Confidentiality of Alcohol and Drug Abuse Patient Records regulations: The Federal rules restrict any use of the information to criminally investigate or prosecute any alcohol or drug abuse patient.[facility] the event this information is protected by the Federal Confidentiality of Alcohol and Drug Abuse Patient Records regulations: The Federal rules restrict any use of the information to criminally investigate or prosecute any alcohol or drug abuse patient.[facility] the event this information is protected by the Federal Confidentiality of Alcohol and Drug Abuse Patient Records regulations: The Federal rules restrict any use of the information to criminally investigate or prosecute any alcohol or drug abuse patient.[facility] the event this information is protected by the Federal Confidentiality of Alcohol and Drug Abuse Patient Records regulations: The Federal rules restrict any use of the information to criminally investigate or prosecute any alcohol or drug abuse patient.[facility] Reason for Visit (unrecogniz ed section and content) Reason Comments Ankle Pain right swelling and b ruising x 1 week Reason Comments left foot pain Left foot pain and s welling x 2 days-cannot recall an injury Reason Comments Results Reason Comments left arm and elbow pain X 2 days-cannot recall an injury FOR RECORDS PERTAINING TO PATIENTS WHO ARE OR HAVE BEEN ENROLLED IN A CHEMICAL DEPENDENCY/SUBSTANCEABUSE PROGRAM, SOME INFORMATION MAY BE OMITTED. This clinical summary was aggregated from multiple sources. Caution should be exercised in using it in the provision of clinical care. This summary normalizes information from multiple sources, and as a consequence, information in this document may materially change the coding, format and clinical context of patient data. In addition, data may be omitted in some cases. CLINICAL DECISIONS SHOULD BE BASED ON THE PRIMARY CLINICAL RECORDS. [employer] provides no warranty or guarantee of the accuracy or completeness of information in this document.
--- NOTE | 2025-05-19 07:06 | HP.PCM_ITS ---
History and Physical Date of Admission: 05/19/25 [facility] [address] [place] [address] OFFICE VISIT Date of Service: 04/24/25 MR#: [id number] Acct: [id number] Name: LAURA STEPHENS Rep #: [id number] : 1970 Provider: Dr. Neville Mccall DO Age/Sex: 55/M [place] [facility] [place]: Signed Intake Vital Signs 02/07/2508:04 Height 6 ft Intake Visit Reasons: RIGHT HIP Chief Complaint: Right hip follow-up Is patient in pain?: Yes (Right hip ) Pain scale (1-10): 2 Allergies No Known Allergies Allergy (Verified 04/24/25 11:20) Medications ?Medication ?Instructions ?Recorded ?Confirmed ?Type acetaminophen 325 mg tablet 650 mg PO Q4H PRN Pain 11/21/22 04/24/25 History aspirin 81 mg chewable tablet 81 mg PO DAILY 11/21/22 04/24/25 History (Alyse Chewable Low Dose Aspirin) cholecalciferol (vitamin D3) 10 10 mcg PO DAILY 09/19/23 04/24/25 Histor y mcg (400 unit) capsule alprazolam 0.25 mg tablet (Xanax) 0.25 mg PO DAILY PRN anxiety #5 10/10/23 04/24/25 Rx tabs atorvastatin 80 mg tablet 40 mg (1/2 x 80 mg) PO QHS #90 tabs 07/06/0704/24/25 Rx fluoxetine 20 mg capsule mg PO DAILY 10/31/24 04/24/25 History allopurinol 100 mg tablet 100 mg PO QDAY 01/09/25 04/24/25 History metoprolol tartrate 25 mg tablet 12.5 mg (1/2 x 25 mg) PO BID #90 5 04/24/25 Rx tabs PFSH Medical History Gout Wears glasses History of steroid therapy High cholesterol History of heart attack Former smoker History of echocardiogram Cardiology follow-up encounter BPH (benign prostatic hyperplasia) GI bleed Borderline type 2 diabetes mellitus Bilateral shoulder pain Essential hypertension Atherosclerotic heart disease of [place] coronary artery without angina pectoris Multi-vessel coronary artery stenosis (11/08/22) Alcohol abuse Tobacco abuse Second degree basnal Surgical History History of cardiac catheterization History of coronary artery bypass surgery (~11/13/22) Family History Grandmother Breast cancerFather Prostate cancer Skin cancer CAD (coronary artery disease)Mother Hypertension High cholesterolGrandfather CAD (coronary artery disease) Social History 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 Neville Mccall, DO 04/24/25 0840. Part of today?s visit was documented by Sapphire Marcus RN, acting as scribe. LAURA STEPHENS is a 55 year old M here today for ongoing right hip pain. He states his uric acid level is down to 6 as of March 16. The hip is popping and and clicking with movement and ROM. He is no longer taking the Indomethacin because it was not helpful. He does take Ibuprofen now as needed with minimal relief. He reports ongoing issues with sleep at night due to the pain. The pain is still on the lateral side and going into the groin. He denies numbness or tingling into the leg. No recent PT or pain management. Patient's right knee started bothering him over the last 6 months and he notices increased pain when standing longer periods. 02/06/2025 visit: 54 year old M here today for increased right hip pain over the last two weeks. he is still taking the indomethacin and allopurinol 100mg QD . He has not had his uric acid tested recently and his last was over 10. He states he has been following the gout diest. He states that within the past 2 weeks he has been having increased pain that is progressively getting worse, and has missed work because of it. He has been having trouble sleeping at night due to the pain. He states that initially the indomethacin seemed to help but at this point he doesn't think it is helping. He states that his pain is the worst in the morning and at night but he states that it can be hit or miss. His pain is over the lateral side and in the groin. 01/09/2025: here today for right hip follow-up. Patient rates his pain 11/24 today. Patient states he did nonweight-bearing the best he could but when he first started it was icy out so it was a struggle. He did have a gout flare-up uric acid 10.8 on 12/26/[address] Ray prescribed him allopurinol. He has finished the alendronate as well as the celebrex. He states if he moves the hip just right the hip will freeze and feel like it needs to pop. He states it has not gotten better since his last visit. Plan:Obtained and reviewed additional hip imaging today, there has been no progression of AVN lesion. Recent blood work indicated uric acid elevated greater than 10 may be primary source of hip pain was started on allopurinol by PCP. I did explain that pain from gout will not be resolved with hip arthroplasty. Recommend continued lowering of uric acid and see where he is at in terms of pain control and function. We would need uric acid levels within normal range and he would need to quit vaping for 6 weeks if treatment plan took us towards arthroplasty . Recommend patient follow-up in 6 weeks to see if the uric acid levels have decreased and see how he is doing pain lazo. Will give patient a prescription for indomethacin and he should take it for a few days in a row and then can change to PRN. Follow up in 6 weeks or sooner if pain, swelling, numbness or associated symptoms, or concerns develop. All questions answered. Patient in agreement of plan. 10/31/2024:54 year old M with medical comorbidities significant for but not limited to gout, myalgia, anxiety depression, non-ST elevation MA, unstable angina, GI bleed, borderline type 2 diabetes, tobacco abuse(current vape), hypertension history of coronary artery bypass surgery, on Xanax here today for initial evaluation of right hip pain. He reports a 4 month history of hip pain. He saw his pcp and had x-rays and was referred to our office. He reports the pain extends into his groin and down the lateral hip into the thigh. He denies injury or surgery to the hip. He takes Ibuprofen as needed for the pain. He has not seen pain management or done PT. He does get some popping in the hip at night and it sometimes wakes him up at night. He was a heavy drinker up until about 2 years ago, he does still drink just not as heavily. He denies any history of cocaine use or scuba diving or extended steroid use. Of note his pain is worse over the posterior lateral hip than it is in the groin does extend into the groin to a lesser degree his pain is not severe but can be worse with stairs. 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 Of note his son has AVN. Plan:Patient is here today for right hip pain and I reviewed xrays today with patient and informed him that he does have avascular necrosis with some mild flattening of the femoral head , of note he has had a AVN lesion in his left hip since 2019 initially had pain that subsequently resided and is having no further issues. . In regards to the symptomatic right hip his pain is slightly unusual for AVN at his is mostly lateral and posterior lateral although he does have some groin pain and symptoms are not severe. He does seem to have some tenderness over the piriformis and external rotators of the hip which may be more muscular in origin. The treatment options for this are do nothing, protected weightbearing with crutches ideally nonweightbearing, physical therapy for the external rotators and possible muscular contribution, bisphosphonate for AVN and JENNIE. We also discussed nicotine cessation for the treatment of AVN but also would be needed to proceed with total hip arthroplasty. patient did have a skiing injury 10 years ago along with he used to be a heavy alcoholic up until 2 years ago, he does still drink but not as heavily. I advised patient that the popping that he is having over the lateral hip is likely from inflammation of the iliotibial band. Patient wishes to proceed with being non weightbearing for 6 weeks and osteoporosis medication. I spoke with patient that we will reach out to his matrix repairer to see if he is able to take NSAIDs given his history if cleared we will send him an NSAID as well. Ortho Exam General General: Yes no acute distress and Yes well groomed Neurologic: Yes alert and Yes oriented x3 Psychologic: Yes reasonable and appropriate Right Knee Skin/Wound: Yes CDI, No erythema, No ecchymosis and No swelling Knee ROM: Yes ROM-Extension -20 to 0 and No ROM-Flexion 0-140 (120) Examination: No Med jt line tenderness, No Lat jt line tenderness, No Crepitus, No Pain with extention and No Ludivina's Test Stability: NML: Marilee, NML: Posterior Drawer, NML: Valgus 0, NML: Valgus 30, NML: Varus 0 and NML: Varus 30 Patella Translation: 1 KNEE: pain over lateral aspect full EXT no joint effusion - patellar instability Valdovinos's Cyst present full FLEX - tenderness medial joint line - tenderness lateral joint line - tenderness pes Left Knee Patella Translation: 1 Right Hip Skin: Yes CDI, No Ecchymosis, No soft tissue swelling and No Erythema internal rotation @90 degree flexion: 10 degrees external rotation @90 degree extension: 65 degrees HIP: no redness,ecchymosis, or masses tender over greater sciatic notch,piriformis area with some tightness pain over lateral hip with abbduction but good strength 5 out of 5 hip flexion strength he does get mild discomfort with hip range of motion but it is worse on the lateral side of his hip. No gross motor or sensory deficits right lower extremity. Head: Normocephalic Atraumatic Chest: symmetrical rise, non-labored breathing, no audible wheeze Abdomen: no guarding, non-rigid Supplemental Info 04/24/2025 x-ray right hip there is more lucency to the cystic lesions of the femoral head 02/06/2025 x-ray right hip: No collapse but presence of AVN multiple cystic changes of the femoral head and flattening unchanged 01/09/2025 x-ray right hip: No change 12/26/2024 uric acid: 10.8 10/20/2024 x-ray right hip: New avascular necrosis in the right superior femoral head. New flattening of the articular surface of the right superior femoral head, compatible with subchondral collapse. Unchanged avascular necrosis of the left femoral head. Coding Level of Care Code Off vis,est,level 3 Diagnoses Avascular necrosis of right femur M87.051 Laterality: right Assessment and Plan Assessment and Plan (1) AVN of femur: Status: Acute Qualifiers: Laterality: right Qualified Code(s): M87.051 - Idiopathic aseptic necrosis of right femur Orders: Orders HIP, UNI W/ Pelvis 2-3 Views Today M87.051 - Idiopathic aseptic necrosis of right femur Plan Obtained and reviewed right hip x-rays today in the clinic. Reviewed imaging findings today with the patient. Explained that his hip does not look any better and at this point it is likely not going to get better . Spoke to patient about option to proceed with left JENNIE. Patient would like to proceed with JENNIE at this time. Risks, benefits and alternatives of surgery reviewed including but not limited to bleeding, infection, nerve, foot drop, artery and/or tissue damage, fracture, VTE, leg length discrepancy, dislocation, need for hip precautions, continued pain and expected post-operative course. Explained that physical therapy after surgery is very important to get into PT right away and at least for the first 6 weeks. Patient would like to proceed with surgery as soon as possible. As for the knee we can order an x-ray and he can get it at his convenience and I will call him to go over the results. Depending on what the x-ray shows we can talk about his options. He should not take any Ibuprofen, Indemethacin or any NSAIDs 7day prior to surgery. He will need medical and cardiac clearance and a CT scan Tentative surgery date 05/19/2025 same-day surgery Follow up after surgery for post-op appointment or sooner if pain, swelling, numbness or associated symptoms, or concerns develop. All questions answered. Patient in agreement of plan. 04/24/25 1204 <Electronically signed by Neville Mccall DO> Date Neville Mccall DO I have examined the patient and the H&P has been reviewed. There are no clinical changes since date of exam.
[2025-05-19] MEDS: Scopolamine 1mg/72hr Patch 1 PATCH TD (07:26)
[2025-05-19] MEDS: Magnesium 1 GM over 15 mins IV (07:40)
[2025-05-19] MEDS: LR 1,000 ML - BOLUS PREOP 999 ML IV (07:40)
--- NOTE | 2025-05-19 07:40 | PCM.PRE.AN2 ---
ASA Classification* ASA Classification ASA Classification: 2 Assessment & Plan Anesthesia* Anesthesia Assessment Anesthesia Assessment: Discussed sedation and/or anesthesia options, risks, benefits, and alternatives with patient/parents/legal guardian/POA. Questions invited. The patient/parents/legal guardian/POA seems to understand and agrees to proceed with anesthesia plan. Reviewed the physical assessment, medical history, allergy history and patient home medications list prior to surgery/procedure/anesthetic and documented any changes. Performed airway and anesthesia risk assessments. Anesthesia Type Anesthesia Type: General, MAC and Spinal History Source History Obtained from:: Patient and Chart Anesthesia Focused Assessment* Temperature: 97.6 F Pulse Rate: 75 Blood Pressure: 111/72 Respiratory Rate: 18 Pulse Ox: 99 Oxygen Delivery Method: Room Air Airway Assessment Mouth opens: >3 cm Mallampati Score: II Teeth Condition: Missing Neck Range of motion (ROM): Full ROM Labs Anesthesia Preop lab: CBC WBC 7.3 K/mm3 (4.4-11.0) 05/14/25 11:19 05/14/25 RBC 4.67 M/mm3 (4.6-6.2) 05/14/25 11:19 05/14/25 Hgb 13.6 g/dL (13.0-16.5) 05/14/25 11:19 05/14/25 Hct 41.0 % (40-54) 05/14/25 11:19 05/14/25 Plt Count 293 K/mm3 (150-450) 05/14/25 11:19 05/14/25 CHEMISTRY Potassium 4.0 mmol/L (3.3-5.1) 05/14/25 11:19 05/14/25 Sodium 141 mmol/L (133-145) 05/14/25 11:19 05/14/25 Magnesium 2.0 mg/dL (1.5-2.2) 05/14/25 11:19 05/14/25 BUN 15 mg/dL (4-19) 05/14/25 11:19 05/14/25 Creatinine 0.99 mg/dL (0.70-1.20) 05/14/25 11:19 05/14/25 Glucose 123 mg/dL (70-99) H 05/14/25 11:19 05/14/25 TSH 1.20 uIU/mL (0.358-3.74) 08/30/23 15:54 08/30/23 COAG PT 13.9 SECONDS (11.7-14.9) 05/14/25 11:19 05/14/25 Pre-Assessment Diagnosis/Proposed Procedure Planned Operative Procedure(s): RIGHT TOTAL HIP ARTHROPLASTY Anesthesia History 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 When Was Last Pacemaker Check QUESTION #4 FULL TEXT: You/Your Family Experience fever (hyperthermia) with Anesthesia Last Oral Intake Last Oral intake: Last Oral Intake NPO since 04:00 05/19/25 06:48 Meds taken in AM with sips of No 05/19/25 06:48 water? Meds patient instructed to take am of surgery PONV PONV - center punch operator: PONV - center punch operator Female No 05/05/25 14:01 HX of Motion Sickness No 05/05/25 14:01 HX of N/V After Surgery No 05/05/25 14:01 Non-Smoker Yes 05/05/25 14:01 Duration of Surgery greater Yes 05/05/25 14:01 than 60 minutes Number of Risk Factors 2 05/05/25 14:01 PONV Score Moderate Risk 05/05/25 14:01 Height & Weight Height & Weight: Anesthesia: Height & Weight Height 6 ft 8.22 in 05/19/25 06:48 Weight: 110 kg 05/19/25 06:48 Body Mass Index (BMI) 26.4 05/19/25 06:48 Respiratory Assessment Respiratory Assessment - center punch operator: Respiratory Tract Infection Hx - center punch operator Hx Respiratory Tract Infection No 05/05/25 14:01 STOP Sleep Apnea STOP Sleep Apnea - center punch operator: STOP Sleep Apnea - center punch operator Hx Hypertension Yes: CONTROLLED WITH MED 05/05/25 14:01 Hx Sleep Apnea No 05/05/25 14:01 CPAP BIPAP Do you snore loudly (louder Yes 05/05/25 14:01 than talking or can be heard Do you often feel tired/ Yes 05/05/25 14:01 fatigued/ sleepy during daytime? Has anyone observed you stop No 05/05/25 14:01 breathing during sleep? STOP Results Positive 05/05/25 14:01 QUESTION #5 FULL TEXT : Do you snore loudly (louder than talking or can be heard through closed doors)? 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 Specify any problems Hx of Preganancy in last 3 N/A 05/05/25 14:01 Months Nurse Filling Out Transfusion DSCHRIBER 05/05/25 14:01 & Questions: Date: 05/05/25 05/05/25 14:01 Time: 14:05 05/05/25 14:01 Patient unable to answer at this time (ie. confused, unrespo /Reproduction History /Reproductive History - center punch operator: /Reproductive Hx- center punch operator Hx Now No 05/05/25 14:01 Gestational Age (in weeks): EDC: Hx Hx Para Hx Section SAB No 05/05/25 14:01 Active Medications Active Medications: Current Medications Generic Name Dose Route Start Last Admin Trade Name Freq PRN Reason Stop Dose Admin Acetaminophen 1,000 mg 05/19/25 08:15 05/19/25 07:28 Acetaminophen 500 Mg Tablet PO 05/19/25 08:16 1,000 mg PREOP ONE Administration Celecoxib 400 mg 05/19/25 08:15 05/19/25 07:27 Celecoxib 200 Mg Capsule PO 05/19/25 08:16 400 mg PREOP ONE Administration Dexamethasone Sodium Phosphate 10 mg 05/19/25 08:15 Dexamethasone 10 Mg/Ml Vial IV 05/19/25 08:16 INTRAOP ONE Gabapentin 600 mg 05/19/25 08:15 05/19/25 07:27 Gabapentin 600 Mg Tablet PO 05/19/25 08:16 600 mg PREOP ONE Administration Lactated Ringer's 1,000 mls @ 999 mls/hr 05/19/25 08:15 IV 05/19/25 09:15 .Q1H1M CESAR Cefazolin Sodium 2 gm/ Sodium 110 mls @ 150 mls/hr 05/19/25 08:15 Chloride IV 05/19/25 08:58 INTRAOP ONE Tranexamic Acid 2,000 mg/ 120 mls @ 280 mls/hr 05/19/25 08:15 Sodium Chloride IV 05/19/25 08:40 INTRAOP ONE Lactated Ringer's 1,000 mls @ 125 mls/hr 05/19/25 08:15 IV 05/19/25 16:14 .Q8H CESAR Insulin Human Lispro 1 - 6 unit 05/19/25 08:15 Insulin Lispro 100 Unit/Ml Insuln.Pen SC Q4H PRN PRN BG>/= 180, SEE PROTOCOL Protocol Scopolamine HBr 1 patch 05/19/25 08:15 05/19/25 07:26 Scopolamine 1mg/72hr Patch TD 05/19/25 08:16 1 patch PREOP ONE Administration PFSH Medical History Loss of hearing Depression Anxiety Alcohol use Arthritis Restless legs Back pain Gastric reflux Former smoker Shortness of breath on exertion Leg cramps History of pain when walking History of edema History of Holter monitoring History of stress test Gout Wears glasses High cholesterol History of heart attack History of echocardiogram Cardiology follow-up encounter BPH (benign prostatic hyperplasia) GI bleed Bilateral shoulder pain Essential hypertension Atherosclerotic heart disease of [place] coronary artery without angina pectoris Multi-vessel coronary artery stenosis (11/08/22) Second degree bansal Home Medications ?Medication ?Instructions ?Recorded ?Last Taken ?Type acetaminophen 325 mg tablet 650 mg PO Q4H PRN Pain 11/21/22 Unknown History cholecalciferol (vitamin D3) 10 10 mcg PO DAILY 09/19/23 05/18/25 History mcg (400 unit) capsule alprazolam 0.25 mg tablet (Xanax) 0.25 mg PO DAILY PRN anxiety #5 10/10/23 Unknown Rx tabs atorvastatin 80 mg tablet 40 mg (1/2 x 80 mg) PO QHS #90 tabs 04/21/24 05/18/25 Rx fluoxetine 20 mg capsule 20 mg PO DAILY 10/31/24 05/12/25 History allopurinol 100 mg tablet 200 mg PO QDAY 01/09/25 05/18/25 History metoprolol tartrate 25 mg tablet 12.5 mg (1/2 x 25 mg) PO BID #90 04/07/25 05/18/25 Rx tabs aspirin 81 mg chewable tablet 81 mg PO DAILY 05/14/25 05/12/25 History (Alyse Chewable Low Dose Aspirin) Allergy/AdvReac Type Severity Reaction Status Date / Time No Known Allergies Allergy Verified 05/19/25 06:45 Family History Grandmother Breast cancer Father Prostate cancer Skin cancer CAD (coronary artery disease) Mother Hypertension High cholesterol Grandfather CAD (coronary artery disease) Surgical History Hx of colonoscopy History of cardiac catheterization History of coronary artery bypass surgery (~11/13/22) Social History current occupational status: employed 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
[2025-05-19] MEDS: Cefazolin 1 GM/5 ML Vial 2 GM IV (08:02)
[2025-05-19] MEDS: Midazolam 2 MG/2 ML Syringe IV (08:05)
--- NOTE | 2025-05-19 08:15 | FEM._PTH ---
PATIENT: LAURA STEPHENS LOC: [facility] [place] U#:[id number] AGE/SX: 55/M ROOM: RE05/19/[address]: Dr. Neville Mccall DO : 1970 BED: DIS: 05/19/2025 SPEC #: [id number] RECD: 05/19/25 14:10 STATUS: IDA REShannan #: [id number] ROSSY: 05/19/25 08:[address]: Neville Mccall DEPT: SURGICAL PATHOLOGY RECD BY: Sajan Melton ENTERED: 05/19/25 15:08 SP TYPE: FEM HEAD OTHR DR: Svitlana Becerril MD Tissues: A - Hip, NOS Procedures: Decalcification bone/plaque Surgery Specimen Level IV HEADER OPERATION: ERAS, right total hip replacement robotic arm assisted PRE-OP DIAGNOSIS: Idopathic aseptic necrosis of right femur TISSUE SUBMITTED: A- Bone and soft tissue - right hip MICROSCOPIC DIAGNOSIS A. Right femoral head and detached bone and soft tissue, total hip arthroplasty: * Severe degenerative osteoarthritis with underlying areas of necrotic bone and other areas of woven reactive bone trabeculae, benign MICROSCOPIC DESCRIPTION Slides are reviewed. GROSS DESCRIPTION A. Received in formalin labeled with the patient's name and date of . Designated as bone and soft tissue-right hip is a 5.0 x 4.9 x 4.8 cm ovoid femoral head with attached, fragmented femoral head, 1.5 cm in length by 2.7 cm in diameter. There is a 3.9 x 1.3 x 0.7 cm portion of attached ulloa-pink to red somewhat shaggy soft tissue on the articular cartilage (suspicious for synovium). The articular cartilage is ulloa and granular with mild to moderate peripheral osteophyte formation. Sectioning reveals ulloa-yellow medullary bone with a pale wedge-shaped area measuring up to 3.5 x 1.0 cm with partially detached overlying articular cartilage. There is also a 0.9 x 0.7 cm apparent subchondral cyst underlying the peripheral osteophyte formation. Also within the container are numerous risks irregular and threadlike fragments of bone and tissue. [employer] [place] sections are submitted in 2 cassettes, following decalcification as follows: A1: Pale wedge-shaped area (suspicious for avascular necrosis)A2: Subchondral cyst GA 05/19/2025 CPT:17914,38141
[2025-05-19] MEDS: TRANEXAMIC ACID 1,000 MG/10 ML ML 2 MG IV (08:30)
[2025-05-19] MEDS: Lactated Ringers 2,000 ML 2000 ML IV (09:21)
--- NOTE | 2025-05-19 10:32 | RAD_ITS ---
PROCEDURE: HIP MIN 2 VIEWS (PORTABLE) 05/19/2025 REASON FOR EXAM: POST OP right hip arthroplasty TECHNIQUE: Two-view portable right hip to include a low centered AP pelvis. COMPARISON: Preoperative study of 04/24/2025. 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 Probable left femoral head os teonecrosis again noted. The patient's postoperative right total hip arthroplasty, with satisfactory ali gnment and overlying skin shasha. No complication is noted. Reading Location: [place] [id number]
--- NOTE | 2025-05-19 10:33 | PCM.OPRPT ---
Operative Report (Standard) Operative Information Date of Procedure: 05/19/25 Pre-Operative Diagnosis: Right hip AVN Post-Operative Diagnosis: Same Surgery/Procedure Performed: Right total hip arthroplasty smasher: Yes Fifth Grade Teacher: Selwyn Subramanian Tasks completed by library assistant: Opening & closing, Implanting device and Retracting Type of Anesthesia: Spinal RN Documented Start/Stop Times: Operation Date: 05/19/25 08:15 Case Time Into Pre-Op 05/19/25 06:20 Anesthesia Start 05/19/25 08:02 Into Room 05/19/25 08:02 Procedure Start 05/19/25 08:43 Procedure End 05/19/25 10:26 Procedure Start Time: 08:43 Procedure Stop Time: 10:26 Select all DRAINS/GRAFTS/IMPLANTS that apply: Prosthetic device Prosthetic device details: Carey Estimated Blood Loss: 125 Specimen collected: Yes Description of specimen(s) removed: Femoral head Description of surgery: Preoperative diagnosis: Right hip AVN Postoperative diagnosis: Same Procedure: CT-guided Makoplasty assisted right total hip arthroplasty Implants: Carey Accolade II stem size 4, 127 degree neck angle +2.5 head neck length 56 mm Trident II acetabular shell with 40 mm cancellous screw 36 mm ceramic head, 10 degree Trident X3 polyethylene insert. Anesthesia: Spinal EBL: 125 cc Complications: None Condition: Stable to PACU [employer] Technician Selwyn Subramanian. My physician ophthalmic assistant was a vital part of this case. He was important in appropriate retraction during the case, and protection of soft tissues during procedure. His intimate knowledge of the case and my steps aided in safe and expedient completion of the procedure as well as appropriate position of the extremity during the case. He was also vital in assisting with closure under my direct supervision. Indication for procedure: This is a 55-year-old male who has had long-standing arthrosis of the hip who has failed conservative treatment and wished to undergo total hip arthroplasty. We did discuss operative versus nonoperative intervention including risks of bleeding, infection , nerve artery tissue damage, need for further surgery, fracture, leg length discrepancy dislocation blood clot and need for postoperative physical therapy and postoperative expectations. An informed consent was signed. Procedure: Patient was met in the preoperative holding area once again the operative extremity was identified by both patient and physician and was marked. Patient was met by anesthesia . Anesthesia was started. patient was then positioned in the lateral decubitus position on a well-padded pegboard with an axillary roll. All bony prominences were checked and padded. The patient was prepped and draped in the usual sterile fashion. A timeout was called to ensure the proper patient procedure and extremity were being contemplated. Anatomic landmarks were palpated and marked for a standard posterior lateral approach. Prior to this the ASIS was palpated and 3 fingerbreadths proximal to this 3 pins were placed at a 45 degree angle into the iliac crest with good purchase, stab incisions were made with a 15 blade into the skin prior to placement. The Makoplasty array was then secured. A 10 blade scalpel was used to make a posterior incision through the skin and subcutaneous tissue. retractors were used and electrocautery was used to maintain meticulous hemostasis and dissect full-thickness flaps until the gluteal fascia was reached. The gluteal fascia was incised in line with the gluteal fibers. The bursal tissue was then freed from the underside and a Charnley retractor was placed. The femoral trochanteric checkpoint was placed and leg length was assessed using the trochanteric checkpoint and an EKG lead that was placed on the knee prior to prepping the leg .the fat pad was then elevated off of the external rotators with electrocautery and the external rotators were dissected off of the greater trochanter including the piriformis and were tagged with #1 Ethibond for later repair. The joint capsule opened with posterior trapdoor technique. The hip was surgically dislocated. The measurement on the preoperative CT from the top of the lesser trochanter to the femoral neck cut was marked Hohmann was placed around the lesser trochanter. A neck cutting guide was used to bruce the neck with a Bovie and an oscillating saw was used complete the femoral neck cut. The femoral head was then removed and sized. We then turned our attention to the acetabulum. A Bovie was used to make a perforation in the anterior joint capsule and a Frias retractor was placed this was repeated in the 6 o'clock position and a wide matteo was placed there. With a long handled knife the labral and pulvinar tissue were removed. We then registered the acetabulum with the pointing array and confirmed our landmarks. Once the socket was thoroughly prepared and labral tissue and pulvinar was removed we single reamed with the robotic arm. We then used the robotic arm to position the acetabular implant and impacted it into place under robotic guidance. We then proceeded to place a posterior superior screw by drilling first measuring and inserting the screw. We then inserted a trial liner. And turned our attention back to the femur at this point a femoral elevator was used. As well as a pointed wide Hohmann around the lesser trochanter and a Hohmann to help retract the gluteus medius. A box chisel was used to remove excess lateral neck followed by a canal finder and a lateralizing reamer. This was followed by sequential broaches. Attention was made of the version within the canal based on preoperative templating. Once the final broach was seated we then trialed reduced the hip it was determined that a 127 degree neck angle with a +2.5 neck length was the appropriate size. We then checked stability with shuck testing as well as flexion and internal rotation. then proceeded with hip extension and checked leg lengths at the knees and heels as well as with the trochanteric checkpoint and knee EKG lead. At this point trials were removed. A liner was inserted to the cup. The femoral stem was inserted. We re-trialed and then proceeded to impact the femoral head onto the Benny taper. We then surgically reduce the hip check stability again and leg lengths and were satisfied. Betadine rinse was allowed to sit for 5 minutes while everyone changed their gloves. Thorough irrigation was performed. Followed by closure of the external rotators with #2 FiberWire followed by closure of gluteal fascia with #1 Ethibond. 0 Vicryl fat stitches and 2-0 Vicryl subcutaneous stitches and alicia in the skin. Alicia were placed in the skin pin sites over the iliac crest and dressed with a Mepilex dressing. The main incision was dressed with a Mepilex ag dressing and an abduction pillow was placed. Patient tolerated the procedure well there was no intraoperative complications all counts were correct and the patient was brought back to the PACU in stable condition Surgical Findings: AVN femoral head Complications Complications: No
--- NOTE | 2025-05-19 10:35 | DCINST_ITS ---
Discharge Instructions Diet Discharge Diet: No restrictions (Minimize sweets in the perioperative period high blood sugar can increase risk of infection) Activity Weight Bearing Status: Full weight bearing Dressing / Incision Call your doctor if you observe: Shortness of breath and Chest pain Additional Dressing/Incision Instructions:: Do not shower for 72hrs. May Begin daily showering with warm water antibacterial soap postop day #3( 72hrs Post- operatively) and then daily. Leave the dressing on for 72 hours postoperatively then remove prior to first shower and change dressing daily after this until no drainage for 2 consecutive days then may leave open to air. If you decide not shower on Sunday and wish to sponge bath only, then may leave dressing undisturbed for up to 1 week, but must remove prior to first shower. Do not submerge for 3 weeks. If not showering daily after the initial dressing is removed you must clean incision and change dressing daily after the dressing comes off, must come off by 7 days postop. Do not allow animals near the incision area. Keep clean. Follow hip precautions that were reviewed in hospital. Wear compression stockings, may remove at night. Start physical therapy as directed in hospital. Follow prescriptions instructions do not take any other pain medication or differ dosing without consulting your physician. Do not take oral NSAIDs until blood thinner has been completed , then may begin the day after completion if needed . Call Dr. Mccall's office with any concerns. Follow Up Care Please Follow Up With: Neville Mccall DO When: 2 weeks Test Results: Test results from this visit will be discussed in further detail at your follow- up appointment, if applicable. Discharge Plan Admission Primary Reason for Your Visit: Right total hip arthroplasty Attending Provider: Neville Mccall Primary Care Provider: Svitlana Becerril Instructions Print Language: [place] Islander Discharge Orders/Prescriptions Prescriptions: New acetaminophen 500 mg tablet 1,000 mg PO Q6H Qty: 100 0RF cephalexin 500 mg capsule 1,500 mg PO Q8H Qty: 6 0RF Rx Instructions: Take 3 tabs before you go to bed and 3 tabs after 5 AM morning after surgery when you wake up Eliquis 2.5 mg tablet 2.5 mg PO BID Qty: 42 0RF Rx Instructions: Begin morning after surgery. oxycodone 5 mg tablet 5 - 10 mg PO Q6H PRN (Reason: pain) 7 Days Qty: 60 0RF Continued aspirin [Alyse Chewable Aspirin] 81 mg tablet,chewable 81 mg PO DAILY Rx Instructions: On hold for surgery cholecalciferol (vitamin D3) 10 mcg (400 unit) capsule 10 mcg PO DAILY alprazolam [Xanax] 0.25 mg tablet 0.25 mg PO DAILY PRN (Reason: anxiety) Qty: 5 0RF atorvastatin 80 mg tablet 40 mg PO QHS Qty: 90 3RF fluoxetine 20 mg capsule 20 mg PO DAILY allopurinol 100 mg tablet 200 mg PO QDAY metoprolol tartrate 25 mg tablet 12.5 mg PO BID Qty: 90 3RF Held acetaminophen 325 mg tablet 650 mg PO Q4H PRN (Reason: Pain) Hold Instructions: Duplicate medication Referrals / Follow Up: Svitlana Becerril MD [Primary Care Provider] - Disposition Disposition (needs filled in before D/C Order can be placed): Home, Self Care
--- NOTE | 2025-05-19 10:41 | PCM.POST.ANE ---
Anesthesia: Postop Eval I Current Vital Signs Temperature: 97.9 F Pulse Rate: 64 Blood Pressure: 102/66 Respiratory Rate: 16 Pulse Ox: 96 Oxygen Delivery Method: Nasal Cannula Oxygen Flow Rate (L/min): 2 Assessment Airway patent: Yes Spontaneous unlabored respirations: Yes Mental status: Calm and Asleep nausea: No Vomiting: No Anesthesia Complication: No Fluid Hydration Crystalloid volume administer (ml): 2,000 Total IV fluid infused: 2,000 Progress Note Anesthesia document: Postop Eval 1 completed: Yes
[2025-05-19] MEDS: LR 1,000 ML - 125 ML/HR POSTOP (NO BOLUS) IV (11:24)
[2025-05-19] MEDS: Ketorolac 30 MG/ML Syringe IV (13:23)
[2025-05-19] MEDS: Cefazolin 2 GM in 0.9% Normal Saline (100mL Bag) 100 ML IV (13:24)
--- NOTE | 2025-05-19 17:01 | POSTOPAN2_ITS ---
Anesthesia Postop Eval I Sum Postop Eval Completion status Anesthesia document: Postop Eval 1 completed: Yes Anesthesia Postop Eval I Summary Anesthesia Postop Eval I Summary: Anesthesia Postop Eval I: Assessment Summary Airway patent Yes 05/19/25 10:42 [email or web address] [email or web address] Spontaneous unlabored Yes 05/19/25 10:42 BORING [email or web address] respirations Mental status Calm,Asleep 05/19/25 10:42 BORING [email or web address] nausea No 05/19/25 10:42 BORING [email or web address] Vomiting No 05/19/25 10:42 [email or web address] [email or web address] Anesthesia Postop Eval I: Fluid Summary Crystalloid volume administer 2,000 05/19/25 10:42 BORING [email or web address] (ml) Colloids volume administered ( ml) Blood Product volume administered (ml) Total IV fluid infused 2,000 05/19/25 10:42 [email or web address] [email or web address] Anesthesia Postop Eval I: Summary Notes Anesthesia Complication No 05/19/25 10:42 [email or web address] [email or web address] Anesthesia Complication Comment: Post-operative progress note Anesthesia: Postop Eval II Evaluation Mental status: Awake and Calm Pain Level: 1 nausea: No Vomiting: No Complications Anesthesia Complication: No
--- NOTE | 2025-05-19 17:01 | PCM.POSTANE2 ---
Anesthesia Postop Eval I Sum Postop Eval Completion status Anesthesia document: Postop Eval 1 completed: Yes Anesthesia Postop Eval I Summary Anesthesia Postop Eval I Summary: Anesthesia Postop Eval I: Assessment Summary Airway patent Yes 05/19/25 10:42 CUTTER OPERATOR [email or web address] Spontaneous unlabored Yes 05/19/25 10:42 CUTTER OPERATOR [email or web address] respirations Mental status Calm,Asleep 05/19/25 10:42 CUTTER OPERATOR [email or web address] nausea No 05/19/25 10:42 CUTTER OPERATOR [email or web address] Vomiting No 05/19/25 10:42 CUTTER OPERATOR [email or web address] Anesthesia Postop Eval I: Fluid Summary Crystalloid volume administer 2,000 05/19/25 10:42 CUTTER OPERATOR [email or web address] (ml) Colloids volume administered ( ml) Blood Product volume administered (ml) Total IV fluid infused 2,000 05/19/25 10:42 CUTTER OPERATOR [email or web address] Anesthesia Postop Eval I: Summary Notes Anesthesia Complication No 05/19/25 10:42 CUTTER OPERATOR [email or web address] Anesthesia Complication Comment: Post-operative progress note Anesthesia: Postop Eval II Evaluation Mental status: Awake and Calm Pain Level: 1 nausea: No Vomiting: No Complications Anesthesia Complication: No
== END 2025-05-19 16:26 | disposition home or self-care (01) ==
LOC: SDC 06:17 → AC 06:25
PROVIDERS: Anesthesiology; PCP Family Medicine; Referring Provider Orthopaedic Surgery; Visit Provider Orthopaedic Surgery
PROC: 8E0Y0CZ Robotic Assisted Procedure of Lower Extremity, Open Approach (ICD-10-PCS; CPT 27130; principal; 2025-05-19 07:45)
DX: M87.051 Idiopathic aseptic necrosis of right femur (principal); R29.4 Clicking hip; I25.10 Atherosclerotic heart disease of native coronary artery without angina pectoris; I10 Essential (primary) hypertension; E78.00 Pure hypercholesterolemia, unspecified; R73.03 Prediabetes; N40.0 Benign prostatic hyperplasia without lower urinary tract symptoms; F17.290 Nicotine dependence, other tobacco product, uncomplicated; Z79.82 Long term (current) use of aspirin; Z79.01 Long term (current) use of anticoagulants; Z79.899 Other long term (current) drug therapy; Z95.1 Presence of aortocoronary bypass graft
CPT/HCPCS: 27130; 0055T; 01214; 36415; 73502; 80048; 82962; 82985; 83036; 83735; 84550; 85025; 85610; 85730; 86850; 86900; 86901; 87081; 88305; 88311; 93005; 97162; C1713; C1776; J2405; J3475

== ENCOUNTER → 2025-09-16 | Outpatient (CLI) | payer OTHER, SELFPAY ==
--- NOTE | 2025-09-16 13:28 | ECHOCS_ITS ---
Reason For Study Reason For Study: MYOCARIAL INFARCTION Procedure This was a 2D Doppler, Color Flow transthoracic echocardiogram. The study was technically difficult. Due to suboptimal imaging windows. Contrast injection was performed. Exam performed in department. Left Ventricle Normal LV size. The left ventricular ejection fraction is 60 %. Stage 1 diastolic dysfunction. No regional wall motion abnormalities noted. Right Ventricle Normal RV size. Normal systolic function. Atria Normal left atrium. Normal right atrium. Mitral Valve Normal mitral valve. Tricuspid Valve Normal tricuspid valve. Aortic Valve Normal aortic valve. Trisinus/trileaflet aortic valve. Pulmonic Valve Normal pulmonic valve. Great Vessels Normal aortic root. Pericardium/Pleural No pericardial effusion. Medication 22 gauge I.V. with prn adaptor inserted into right arm. Diluted definity 2.0ml given slow IV push to enhance endocardial definition. MMode/2D Measurements & Calculations LVIDd: 5.1 cm IVSd: 0.83 cm LVOT diam: 2.2 cm LVIDs: 3.8 cm LVPWd: 0.83 cm RVDd: 3.3 cm FS: 26.0 % LVOT area: 3.9 cm2 Ao root diam: 3.4 cm LAV(MOD-bp): 36.5 ml LVAd ap4: 30.3 cm2 LAV(MOD-bp) Indexed: 16.0 ml/m2 LVLd ap4: 8.3 cm LAV(MOD-sp2): 36.1 ml EDV(MOD-sp4): 94.5 ml LAV(MOD-sp4): 37.1 ml EDV(sp4-el): 94.1 ml LVAs ap4: 16.1 cm2 LVLs ap4: 6.3 cm ESV(MOD-sp4): 35.0 ml ESV(sp4-el): 35.1 ml EF(MOD-sp4): 63.0 % EF(sp4-el): 62.8 % LVAd ap2: 26.8 cm2 SV(MOD-sp4): 59.5 ml SV(MOD-sp2): 49.0 ml LVLd ap2: 7.8 cm SI(MOD-sp4): 26.1 ml/m2 SI(MOD-sp2): 21.5 ml/m2 EDV(MOD-sp2): 75.6 ml EDV(sp2-el): 77.7 ml LVAs ap2: 14.4 cm2 LVLs ap2: 6.4 cm ESV(MOD-sp2): 26.5 ml ESV(sp2-el): 27.3 ml EF(MOD-sp2): 64.9 % SV(sp4-el): 59.1 ml LA dimension(2D): 4.2 cm LA A4 area: 15.2 cm2 RA A4 area: 12.7 cm2 Time Measurements MV dec time: 0.25 sec Doppler Measurements & Calculations MV E max navid: 56.3 cm/sec Lat Peak E' Navid: 11.9 cm/sec Med Peak E' Navid: 11.2 cm/sec MV A max navid: 57.8 cm/sec E/E' lat: 4.7 E/E' med: 5.0 MV E/A: 0.97 MV V2 max: 71.6 cm/sec MV P1/2t max navid: 62.6 cm/sec Ao V2 max: 106.5 cm/sec MV max P.1 mmHg MV P1/2t: 67.9 msec Ao max P.5 mmHg MV V2 mean: 43.1 cm/sec Ao V2 mean: 72.6 cm/sec MV mean P.81 mmHg MV dec slope: 269.7 cm/sec2 Ao mean P.3 mmHg MV V2 VTI: 13.9 cm MVA(P1/2t): 3.2 cm2 Ao V2 VTI: 18.2 cm AV (velocity ratio): 1.1 MVA(VTI): 5.3 cm2 PAOLA(I,D): 4.1 cm2 PAOLA(V,D): 3.6 cm2 LV V1 max: 100.3 cm/sec SV(LVOT): 74.1 ml PA V2 max: 109.3 cm/sec LV V1 max P.0 mmHg LV V1 mean P.9 mmHg LV V1 mean: 64.1 cm/sec LV V1 VTI: 19.2 cm ECHO/Echo Complete W/ Contrast Interpretation Summary Normal LV size. The left ventricular ejection fraction is 60 %. Stage 1 diastolic dysfunction. Contrast injection was performed. Structurally normal valves. Ordering Physician: Demarco Toussaint Referring Physician: Lalito Zamora; Svitlana Becerril Performed By: Nuvia Rain RDCS, RVT
== END | disposition home or self-care (01) ==
LOC: CVS 13:23
PROVIDERS: PCP Family Medicine; Referring Provider Chiropractor; Visit Provider Chiropractor
DX: I25.2 Old myocardial infarction (principal)
CPT/HCPCS: 93306; Q9957; A4216; C8929

== ENCOUNTER 2025-10-12 07:07 | Emergency (ER) | payer OTHER, SELFPAY ==
[2025-10-12 07:07] VITALS: BP 138/88; PULSE 87; RESP 18; TEMP 35.8; O2SAT 100; BMI 32.1
--- NOTE | 2025-10-12 07:21 | CT_ITS ---
PROCEDURE: ABDOMEN/PELVIS WITHOUT CONT 10/12/2025 REASON FOR EXAM: LEFT FLANK PAIN TECHNIQUE: Procedure Code: CTABDPEL Modality: CT Procedure: ABDOMEN/PELVIS WITHOUT CONT Noncontrast technique limits evaluation of the abdominal and pelvic viscera. Coronal and Sagittal reconstruction series were provided. One or more dose reduction techniques were used (e.g., Automated exposure control, adjustment of the mA and/or kV according to patient size, use of iterative reconstruction technique). RADIATION DOSE SUMMARY: CTDlvol: 12.62 mGy DLP: 1359.75 mGycm COMPARISON: None. FINDINGS: Lung bases: Atelectasis in the left lower lobe. Liver: Liver steatosis. Gallbladder: Unremarkable. No biliary dilation. Spleen: Unremarkable. Pancreas: Unremarkable. Adrenals: Unremarkable. Kidneys: Perinephric fat stranding. A 1-2 mm stone at the left ureter-bladder junction causing moderate left hydronephrosis. No right hydronephrosis. Correlation with urinalysis is recommended. Bladder: Unremarkable. Reproductive Organs: Unremarkable. Bowel: No bowel wall thickening. No bowel obstruction. Appendix: Normal. Lymph nodes: No lymphadenopathy. Vasculature: No aneurysm. Atherosclerotic calcifications of the aorta. Peritoneum / Retroperitoneum: No free air or free fluid. Bones: No acute bony abnormalities. Limited study due to lack of IV contrast. CT/Abdomen/Pelvis without Cont IMPRESSION: Perinephric fat stranding. A 1-2 mm stone at the left ureter-bladder junction causing moderate left hydronephrosis. No right hydronephrosis. Correlation with urinalysis is recommended. Reading Location: [id number]
--- NOTE | 2025-10-12 07:24 | EDS_ITS ---
HPI HPI - GI History of Present Illness Chief Complaint: Abd Pain Informant: patient Narrative Narrative: Patient is a 55-year-old male presenting with acute left sided abdominal pain. - Onset of pain at 0430 this morning (2.5 hrs ago). - Describes pain as initially localized to the left side, radiating to the center of the abdomen and left low back. - Associated symptoms include nausea and dry heaves. - Denies recent abnormal bowel movements; last BM was yesterday morning. - Reports minimal urine output when urinated this morning; no dysuria or hematuria. - Some mild radiation of pain to the left groin/testicle. - Denies history of nephrolithiasis. [facility] Medical History (Updated 10/12/25 @ 09:[address] 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 Home Medications ?Medication ?Instructions ?Recorded ?Last Taken ?Type cholecalciferol (vitamin D3) 10 10 mcg PO DAILY 05/18/25 History mcg (400 unit) capsule alprazolam 0.25 mg tablet (Xanax) 0.25 mg PO DAILY PRN anxiety #5 10/10/23 Unknown Rx tabs fluoxetine 20 mg capsule 20 mg PO DAILY 10/31/2404/15 History allopurinol 100 mg tablet 200 mg PO QDAY 01/09/2502/06 History metoprolol tartrate 25 mg tablet 12.5 mg (1/2 x 25 mg) PO BID #90 04/07/25 05/18/25 Rx tabs aspirin 81 mg chewable tablet 81 mg PO DAILY 05/14/25 05/12/25 History (Alyse Chewable Low Dose Aspirin) atorvastatin 40 mg tablet 40 mg PO QHS #90 tabs Unknown Rx indomethacin 50 mg capsule 50 mg PO TID PRN gout flare pain 10/24/25 Unknown Rx #30 caps ezetimibe 10 mg tablet (Zetia) 10 mg PO QDAY #30 tabs 09/01/25 Unknown Rx amoxicillin 500 mg capsule 500 mg PO ONCE #4 caps 06/08 Unknown Rx ondansetron 8 mg disintegrating 8 mg PO Q8H PRN nausea and 10/12/25 Unknown Rx tablet vomiting #12 tabs oxycodone-acetaminophen 5 mg-325 1 tab PO Q6H PRN PRN Pain 3 days 10/12/25 Unknown Rx mg tablet #12 TABLETS Allergy/AdvReac Type Severity Reaction Status Date / Time No Known Allergies Allergy Verified 10/12/25 07:11 Family History (Reviewed 09/01/25 @ 13:05 by Charla Dunn BUILDING MAINTENANCE WORKER, BUILDING MAINTENANCE WORKER-C) Grandmother Breast cancer Father Prostate cancer Skin cancer CAD (coronary artery disease) Mother Hypertension High cholesterol Grandfather CAD (coronary artery disease) Surgical History (Reviewed 09/01/25 @ 13:05 by Charla Dunn BUILDING MAINTENANCE WORKER, BUILDING MAINTENANCE WORKER-C) Hx of colonoscopy History of cardiac catheterization History of coronary artery bypass surgery (~11/13/22) Social History current occupational status: employed 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 Smoking Status: Current every day smoker tobacco type: cigarettes and e- cigarettes Electronic Cigarette Use: with nicotine alcohol intake: current alcohol intake frequency: 3 or more drinks per day Alcohol type: beer substance use type: does not use what type of physical activity do you participate in: none ROS ROS ED Constitutional Constitutional ED: Denies chills or fever(s) Eyes Eyes: Denies change in vision or diplopia ENT ENT ED: Denies rhinorrhea or sore throat Cardiovascular Cardiovascular: Denies chest pain or palpitations Respiratory/Chest Respiratory/Chest: Denies cough or dyspnea Gastrointestinal Gastrointestinal: Reports abdominal pain, nausea and vomiting; Denies diarrhea Genitourinary Genitourinary ED: Denies dysuria or hematuria Musculoskeletal Musculoskeletal: Reports back pain; Denies neck pain Integumentary Denies abscess or rash Neurologic Neurologic: Denies headache(s), paresthesias or weakness Psychiatric Psychiatric: Denies suicidal thoughts EXAM Physical Exam Const Vital Signs: 10/12/25 07:07 Temperature 96.5 F L Temperature Source Tympanic Pulse Rate 87 Respiratory Rate 18 Blood Pressure 138/88 H Blood Pressure Mean 104 Pulse Ox 100 Oxygen Delivery Method Room Air Positive well nourished and well developed General Appearance ED: well developed and NAD HEENT Reports moist mucous membranes normocephalic and atraumatic Eyes PERRL and EOMs intact bilaterally Neck full ROM and supple Resp normal respiratory effort and clear to auscultation bilaterally Cardio regular rate, regular rhythm and no murmurs GI non-distended GI Narrative: Mild left mid abdominal tenderness laterally Auscultation: normoactive bowel sounds Palpation: soft Back/Spine Back/Spine Narrative: Mild left CVA tenderness. None on right. Normal inspection no rash. General Back: other FROM Extremity normal to inspection General Extremety ED: Negative for edema, pulses abnormal or tenderness General Extremity: Negative for edema or pulses abnormal Neuro oriented x3, CN's II-XII intact bilaterally and no sensory deficits noted Sensorium / Orientation: awake and alert Motor Exam: strength 5/5 throughout Skin no rashes or lesions noted and no wounds MDM MDM MDM Narrative Medical decision making narrative: Assessment: The patient is a 55-year-old male presenting for acute left-sided abdominal pain radiating to the mid-abdomen, back, and scrotum, accompanied by nausea and dry heaves. Exam shows mild mid-abdominal tenderness and left CVA tenderness. Differential included ureteral calculus, diverticulitis, abdominal aortic aneurysm, and other GI etiologies of left-sided abdominal pain. CT abdomen/pelvis confirms a 1?2 mm left ureterovesical-junction stone with hydroureterone and hydronephrosis. Urinalysis demonstrates microscopic hematuria without evidence of infection. Given imaging and UA findings, left ureteral calculus with associated hydronephrosis is the most likely diagnosis, and no immediate life threat is identified. Plan: - Administered IV Zofran, IV Toradol, and IV morphine for analgesia and anti- emesis in the ED - Prescribed oxycodone for breakthrough pain and Zofran for nausea on discharge - Provided return precautions and discussed expectations for spontaneous stone passage - Discharged home in improved condition with normal vital signs and adequate pain control Diagnostics: - CT abdomen/pelvis: 1?2 mm left UVJ stone with hydroureter and hydronephrosis, no other acute findings. Independently reviewed by me, Wilton Smith - Urinalysis: microscopic hematuria; no evidence of urinary infection Reevaluations: - Patient re-evaluated after analgesia: pain well controlled, resting comfortably, vital signs normal, ready for discharge Portions of this note were generated using voice recognition software ([employer]). I have reviewed the contents and every effort has been made to ensure accuracy; however, inadvertent errors in grammar, spelling, punctuation, or word choice may occur, that were not noted before signing the document and should not alter the intended clinical meaning. Lab Data Attestation: I reviewed the patient's lab results. Labs: Laboratory Results - last 24 hr 10/12/25 10/12/25 07:30 07:46 WBC 9.8 RBC 4.97 Hgb 14.0 Hct 42.1 MCV 84.7 MCH 28.2 MCHC 33.3 RDW Std Deviation 47.5 H RDW Coeff of Tj 15.7 H Plt Count 274 MPV 10.2 Immature Gran % (Auto) 0.500 Neut % (Auto) 73.7 H Lymph % (Auto) 17.8 L Roberts % (Auto) 6.3 Eos % (Auto) 1.1 Baso % (Auto) 0.6 Absolute Neuts (auto) 7.3 Absolute Lymphs (auto) 1.75 Nucleated RBC % 0 Sodium 139 Potassium 4.2 Chloride 105 Carbon Dioxide 19.9 L Anion Gap 14 BUN 15 Creatinine 1.22 H Estim Creat Clear Calc 88.69 Est GFR (MDRD) Non-Af 71 BUN/Creatinine Ratio 12.0 Glucose 192 H Calcium 9.3 Urine Color Yellow Urine Clarity Clear Urine pH 5.0 Ur Specific Dennis 1.025 Urine Protein 30 H Urine Glucose (UA) Normal Urine Ketones Negative Urine Occult Blood 250 H Urine Nitrite Negative Urine Bilirubin Negative Urine Urobilinogen Normal Ur Leukocyte Esterase Negative Urine RBC 25-50 SEEN Urine WBC 0 SEEN Ur Squamous Epith Cells 0 SEEN Urine Bacteria 0 SEEN Urine Mucus 1+ Radiography Diagnostic Testing: Clinical Impression(s) from Imaging Studies Abdomen/Pelvis CT 10/12/25 07:21 IMPRESSION: Perinephric fat stranding. A 1-2 mm stone at the left ureter-bladder junction causing moderate left hydronephrosis. No right hydronephrosis. Correlation with urinalysis is recommended. Reading Location: [facility] Discharge Plan Triage Chief Complaint: Abd Pain ED Provider: Wilton Smith Dx/Rx/DC Orders Clinical Impression: Renal colic on left side, Hydroureteronephrosis, Ureterolithiasis Instructions: ED Urine Strainer, ED Kidney Stone with Pain Prescriptions: New ondansetron 8 mg tablet,disintegrating 8 mg PO Q8H PRN (Reason: nausea and vomiting) Qty: 12 0RF oxycodone-acetaminophen 5-325 mg tablet 1 tab PO Q6H PRN PRN (Reason: Pain) 3 Days Qty: 12 0RF No Action aspirin [Alyse Chewable Aspirin] 81 mg tablet,chewable 81 mg PO DAILY Rx Instructions: On hold for surgery cholecalciferol (vitamin D3) 10 mcg (400 unit) capsule 10 mcg PO DAILY alprazolam [Xanax] 0.25 mg tablet 0.25 mg PO DAILY PRN (Reason: anxiety) Qty: 5 0RF fluoxetine 20 mg capsule 20 mg PO DAILY allopurinol 100 mg tablet 200 mg PO QDAY ezetimibe [Zetia] 10 mg tablet 10 mg PO QDAY Qty: 30 11RF metoprolol tartrate 25 mg tablet 12.5 mg PO BID Qty: 90 3RF atorvastatin 40 mg tablet 40 mg PO QHS Qty: 90 3RF indomethacin 50 mg capsule 50 mg PO TID PRN (Reason: gout flare pain) Qty: 30 0RF Rx Instructions: administer with food or milk; do not take in conjunction with other NSAID. amoxicillin 500 mg capsule 500 mg PO ONCE Qty: 4 0RF Rx Instructions: Take 4 tablets as 1 dose 1 hour prior to dental work Primary Care Provider: Svtilana Becerril Referrals: Bruce Wu MD [Med Staff - Active Staff, Urology] - 1 Week if not improving Print Language: German Disposition Disposition: Home, Self Care
--- OUTSIDE RECORDS SUMMARY | 2025-10-12 07:42 | XMS RPT_ITS | CCD ---
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 Neville Mccall, DO 06/29/25 0837. Part of today???s visit was documented by Shantelle CROWDER, acting as scribe. LAURA STEPHENS is a 55 year old M here today for 6 weeks postop right total hip arthroplasty DOS 05/19/2025. Patient states that he is doing well and having minimal pain. He is having pain in his left foot as he is having a gout flare up. He complete physical therapy on 06/17/25 and has been doing home exercises. Ortho Exam General General: Yes no acute distress Neurologic: Yes alert and Yes oriented x3 Psychologic: Yes reasonable and appropriate Right Hip Skin: No Ecchymosis, No soft tissue swelling and No Erythema HIP: Incision is well-healed there is no sign infection or DVT is neurovascular intact he is able to rise from the chair and ambulate without any difficulty he is wearing flip-flops today Supplemental Info 2025 x-ray right hip there [...] femoral head. Coding Level of Care Code Global Post Op Diagnoses Status post right hip replacement Z96.641 Assessment and Plan Assessment and Plan (1) Status post right hip replacement: Status: Acute Orders: Orders HIP, UNI W/ Pelvis 2-3 Views Today Z96.641 - Presence of right artificial hi (more content not included)... Normal [facility] Orthopedic Visit Reporton Orthopedic Visit Report [facility] [address] [place] [id number] OFFICE VISIT Date of Service: 06/01/25 MR#: [id number] Acct: [id number] Name: LAURA STEPHENS Rep #: [id number] : 1970 Provider: ISABELLE nichole Age/Sex: 55/M Location: [facility] [place] Status: Signed Intake Vital Signs 02/06/25 08:04 05/19/25 06:48 06/01/25 13:04 Height 6 ft 6 ft 8.22 in 6 ft 8.22 in Weight: 230 lb BMI 25.1 Intake Visit Reasons: right hip Chief Complaint: Right hip 2 week post op Accompanied by: Is patient in pain?: Yes Pain scale (1-10): 1 Allergies No Known Allergies Allergy (Verified 06/01/25 13:08) Medications ???Medication ???Instructions ???Recorded ???Confirmed ???Type acetaminophen 325 mg tablet 650 mg PO Q4H PRN Pain 11/21/22 History Held on 05/19/25. Instructions: Duplicate medication cholecalciferol (vitamin D3) 10 10 mcg PO DAILY 09/19/23 06/01/25 History mcg (400 unit) capsule alprazolam 0.25 mg tablet (Xanax) 0.25 mg PO DAILY PRN anxiety #5 1 2/27/23 08/18/25 Rx tabs atorvastatin 80 mg tablet 40 mg (1/2 x 80 mg) PO QHS #90 tab s 04/21/24 06/01/25 Rx fluoxetine 20 mg capsule 20 mg PO DAILY 10/31/24 06/01/25 H istory allopurinol 100 mg tablet 200 mg PO QDAY 01/09/25 06/01/25 H istory metoprolol tartrate 25 mg tablet 12.5 mg (1/2 x 25 mg) PO BID #90 0 04/07/25 06/01/25 Rx tabs aspirin 81 mg chewable tablet 81 mg PO DAILY 05/14/25 06/01/25 H istory (Alyse Chewable Low Dose Aspirin) acetaminophen 500 mg tablet 1,000 mg (2 x 500 mg) PO Q6H #100 05/19/25 06/01/25 Rx tabs apixaban 2.5 mg tablet (Eliquis) 2.5 mg PO BID #42 tabs 05/19/25 Rx cephalexin 500 mg capsule 1,500 mg (3 x 500 mg) PO Q8H #6 06/01/25 Rx caps oxycodone 5 mg tablet 5 - 10 mg (1 - 2 x 5 mg) PO Q6H 06/01/25 Rx PRN pain 7 days #60 tabs Have you fallen in the past year?: [...] pain Essential hypertension Atherosclerotic heart disease of [place] coronary artery without angina pectoris Multi-vessel coronary [...] activity do you participate in: none HPI right hip Details: This documentation accurately reflects the service provided and the decisions made by me, Erin Thacker NP-C 06/01/25 1304. Part of today???s visit was documented by Jazmyne Bazzi MA, acting as scribe. LAURA STEPHENS is a 55 year old M S/P R JENNIE with Dr. Mccall 2 weeks ago, 05/19/2025. Gout flare approx 1 week after surgery, better after Colchicine. OTC Tylenol prn (1-2x/day) helps with sx control, ice prn. No rx pain meds since 4 days post op. Aggravated with certain motions- turning to get out vehicle (not driving). ELIZA hose to R leg helps with swelling, elevation. Attended 1 session PT prior to gout flare. Due to restart in 2 days. Has been performing HEP and stretching daily. Pain 1/10 today. When he stands his right leg is longer then his left leg. He is a hiking stick to help him walk. Patient states that he is trying to get used to the new hip. Overall hip pain improved compared to prior to surgery. Accompanied by for today's visit. ROS Const All systems reviewed are unremarkable except as noted in H and other (A O x 3, no apparent distress. No recent illness.) ENT Denies dizziness Card Denies chest pa (more content not included)... Normal [facility] Inital Evaluation (1) - PTon 05-27-2025 Inital Evaluation (1) - PT [facility] Physical Therapy [facility] [address] [place] [address]. [address] [place] [address] / REHABILITATION SERVICES INITIAL EVALUATION MR#: [id number] Acct: [id number] Name: LAURA STEPHENS Rep #: [id number] : 1970 55 From: Tip Herrera DPT Referring Dr.: Dr. Neville Mccall DO Status: R EG RCR Insurance: [employer] SELF [employer]ANCE Patient's Visit Information Visit Information Visit Information: LAURA STEPHENS is a 55 year old M referred to Physical Therapy by Dr. Neville Mccall DO with a diagnosis of R JENNIE, DOS 05/22/25, posterior/lateral approach. Date of Evaluation: 05/22/25 Physical Therapist: Tip Herrera DPT Visit Plan Frequency: 1-2x /Week Duration: 6 Weeks Plan: 1) R hip ROM, HS stretching 2) foam rolling to RLE 3) gait progression 4) functional strengthening of RLE Subjective Subjective: Pt. is here today for his initial evaluation with diagnosis of R JENNIE; DOS: 05/19/25, posterior/lateral approach. Pt. arrives with use of FWW with good tolerance. Pt. reports overall doing well, but is having some pain, 4/10 pain in R hip today. He denies N/T in either LE. Pt. reports no calf pain, no blurred vision, no fever. Pt. is having some difficulty with sleeping, unable to get comfortable. 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 Pt. reports having to do a lot of lifting and getting in awkward positioning at times. Pt. is hopeful to increase his strength and get back to all working/work activities without limitations. Pain R hip: Pain Intensity (Out of 10): 4 Pain Intensity Range: 2 and 6 Objective Objective: POSTURE: Pt. has slight flexed posture. Increased wt. shift ot L side in stance. PALPATION: Pt. has tenderness along lateral R hip. Pt. has bandage in place. Pt. is to remove this weekend. -homans sign NEURO: Pt. has normal sensation and normal DTR of BLEs. ROM: R hip: PROM: flex 80deg, abd 30deg, ext lacking 2deg. ER/IR not tested. MMT: RLE: knee: ext 21#, flex 17#; hip: flex 0#, abd 0#. LLE: knee; Ext 31#, flex 26#; hip: flex 31#, abd did not test. 30 sec sit to stand test: 8 with use of Ues. TUG 38sec with FWW. GAIT: pt. ambulates with antalgic pattern during R stance phase. Pt. has decreased step length with LLE. Pt. reports increased pain during R stance phase. STAIRS: Pt. is able to complete with step to pattern with 2 HR. Balance/Special Test Scores WOMAC Total Score: 68 WOMAC Percentatge: 29.1700 Goals Goal 1:: LTG: Pt. to be I with HEP. Goal Time Frame: 4-6 Weeks Goal 2:: LTG: Pt. have full ROM of R hip without increase in symptoms. Goal Time Frame: 4-6 Weeks Goal 3:: LTG: Pt. to have symmetrical strength between BLEs. Goal Time Frame: 4-6 Weeks Goal 4:: LTG: Pt. to ambulate with normal gait pattern without use of AD. Goal Time Frame: 4-6 Weeks Goal 5:: LTG: Pt. to complete 30sec sit to stand rep test with 17reps. Goal Time Frame: 4-6 Weeks Goal 6:: LTG: Pt. to complete TUG with time less than 10seconds. Goal Time Frame: 4-6 Weeks Rehabilitation Potential Physical Therapy Diagnosis: Pt. has signs and symptoms consistent with R JENNIE, DOS 05/22/25, posterior/lateral approach. Pt. has marked weakness, hypomobility, weakness, and increased pain. Pt. would benefit from PT to address the above limitations. Rehabilitation Potential: Excellent Anticipated Interventions Patient/Client Instruction: Educate patient on: Condition, Plan of Care, Risk Factors and Benefits of Fitness Program For the Purpose of:: To improve self management, To prevent re-injury, To improve ability to perform tasks related to life management and To improve tolerance to ADL's Therapeutic Exercise to Include: Strength training, Power training, Endurance training, Balance training, Coordination, Agility training, Body mechanics, Postural training, Flexibilty training and Gait and locomotor training For the Purpose of:: To decrease pain, To increase ROM, To improve nutrient delivery to tissue, To increase oxygenation perfusion, To improve muscle performance and motor function, To improve ability to perform ADL's, To increase tolerance to activity/condition/p osition, To improve gait and locomotor functions, To improve health of tissue, To decrease soft tissue restriction and To increase flexibility/ROM Cryotherapy (ice pack, ice massage): Yes Vasopneumatic device: Yes For the Purpose of:: To decrease pain, To decrease swelling/inflammatio n and To increase ROM Text: Thank you for the opportunity to evaluate your patient. For Medicare and Medicare HMO plans, please review the plan of care and approve it. It will need to be FAXED BACK to us at [phone] for Medicare purposes. For Medicare only, by signing this I certify the plan of care. Please let me know if there are questions or concerns regarding this plan of care. Physician Signature: (more content not included)... Normal [facility] Bedside Glucoseon 05-19-2025 FINGERSTICK GLU 122 mg/dL High 74-106 [facility] Comment on above: Result Comment: NANCY GEMENT OF PATIENT CARE PER NURSING PROTOCOL Performed By: #### M 100.651, L300.4310, L500.2500, L501.1400, L100.0100, BTSPAT, L3400.0100, L300.3900, L501.9985 #### [facility] [address] [place], [place], [id number] FINGERSTICK GLU 221 mg/dL High 74-106 [facility] Comment on above: Result Comment: NANCY GEMENT OF PATIENT CARE PER NURSING PROTOCOL Performed By: #### M 100.651, L300.4310, L500.2500, L501.1400, L100.0100, BTSPAT, L3400.0100, L300.3900, L501.9985 #### [facility] [address] [place], [place], [id number] Decalcification bone/plaqueo n 05-19-2025 Decalcification bone/plaque Patient Age/Sex Location Account Attending Physician LAURA STEPHENS 55/M [facility] [id number] Dr. Neville Mccall DO Specimen: [id number] Received: 05/19/25 Status: IDA Salty Num: [id number] Spec Type: FEM HEAD Subm Dr: Dr. Neville Mccall DO [facility] OPERATION: ERAS, right total hip replacement robotic arm assisted PRE-OP DIAGNOSIS: Idopathic aseptic necrosis of right femur TISSUE SUBMITTED: A- Bone and soft tissue - right hip MICROSCOPIC DIAGNOSIS A. Right femoral head and detached bone and soft tissue, total hip arthroplasty: * Severe degenerative osteoarthritis with underlying areas of necrotic bone and other areas of woven reactive bone trabeculae, benign MICROSCOPIC DESCRIPTION Slides are reviewed. GROSS DESCRIPTION A. Received in formalin labeled with the patient's name and date of . Designated as bone and soft tissue-right hip is a 5.0 x 4.9 x 4.8 cm ovoid femoral head with attached, fragmented femoral head, 1.5 cm in length by 2.7 cm in diameter. There is a 3.9 x 1.3 x 0.7 cm portion of attached ulloa-pink to red somewhat shaggy soft tissue on the articular cartilage (suspicious for synovium). The articular cartilage is ulloa and granular with mild to moderate peripheral osteophyte formation. Sectioning reveals ulloa-yellow medullary bone with a pale wedge-shaped area measuring up to 3.5 x 1.0 cm with partially detached overlying articular cartilage. There is also a 0.9 x 0.7 cm apparent subchondral cyst underlying the peripheral osteophyte formation. Also within the container are numerous risks irregular and threadlike fragments of bone and tissue. Clay Worker sections are submitted in 2 cassettes, following decalcification as follows: A1: Pale wedge-shaped area (suspicious for avascular necrosis)A2: Subchondral cyst AK 05/19/2025 [facility]:[id number] Patient Age/Sex Location Account Attending Physician LAURA STEPHENS/Sachin [facility] [place] [id number] Dr. Neville Mccall DO Signed (signature on file) Dr. Go Knox MD 05/26/25 1312 Normal [facility] Comment on above: Performed By: #### M 100.651, L300.4310, L500.2500, L501.1400, L100.0100, BTSPAT, L3400.0100, L300.3900, L501.9985 #### [facility] [address] [place], [address] Discharge Instructionon 08-0 Discharge Instruction [facility] Medical Records Department [address] [place] [address] Instructions for Home/Discharge Instructions 05/19/25 1035 MR#: [id number] Acct: [id number] Name: LAURA STEPHENS Rep #: [id number] : 1970 55 From: Neville Mccall DO PCP: Dr. Svitlana Becerril MD Status:REG [facility] [place]charge Instructions Diet Discharge Diet: No restrictions (Minimize sweets in the perioperative period high blood sugar can increase risk of infection) Activity Weight Bearing Status: Full weight bearing Dressing / Incision Call your doctor if you observe: Shortness of breath and Chest pain Additional Dressing/Incision Instructions:: Do not shower for 72hrs. May Begin daily showering with warm water antibacterial soap postop day #3( 72hrs Post-operatively) and then daily. Leave the dressing on for 72 hours postoperatively then remove prior to first shower and change dressing daily after this until no drainage for 2 consecutive days then may leave open to air. If you decide not shower on Vearisto and wish to sponge bath only, then may leave dressing undisturbed for up to 1 week, but must remove prior to first shower. Do not submerge for 3 weeks. If not showering daily after the initial dressing is removed you must clean incision and change dressing daily after the dressing comes off, must come off by 7 days postop. Do not allow animals near the incision area. Keep clean. Follow hip precautions that were reviewed in hospital. Wear compression stockings, may remove at night. Start physical therapy as directed in hospital. Follow prescriptions instructions do not take any other pain medication or differ dosing without consulting your physician. Do not take oral NSAIDs until blood thinner has been completed , then may begin the day after completion if needed . Call Dr. Mccall's office with any concerns. Follow Up Care Please Follow Up With: Neville Mccall DO When: 2 weeks Test Results: Test results from this visit will be discussed in further detail at your follow-up appointment, if applicable. Discharge Plan Admission Primary Reason for Your Visit: Right total hip arthroplasty Attending Provider: Neville Mccall Primary Care Provider: Svitlana Becerril Instructions Print Language: [place] Discharge Orders/Prescriptions Prescriptions: New acetaminophen 500 mg tablet 1,000 mg PO Q6H Qty: 100 0RF cephalexin 500 mg capsule 1,500 mg PO Q8H Qty: 6 0RF Rx Instructions: Take 3 tabs before you go to bed and 3 tabs after 5 AM morning after surgery when you wake up Eliquis 2.5 mg tablet 2.5 mg PO BID Qty: 42 0RF Rx Instructions: Begin morning after surgery. oxycodone 5 mg tablet 5 - 10 mg PO Q6H PRN (Reason: pain) 7 Days Qty: 60 0RF Continued aspirin [Alyse Chewable Aspirin] 81 mg tablet,chewable 81 mg PO DAILY Rx Instructions: On hold for surgery cholecalciferol (vitamin D3) 10 mcg (400 unit) capsule 10 mcg PO DAILY alprazolam [Xanax] 0.25 mg tablet 0.25 mg PO DAILY PRN (Reason: anxiety) Qty: 5 0RF atorvastatin 80 mg tablet 40 mg PO QHS Qty: 90 3RF fluoxetine 20 mg capsule 20 mg PO DAILY allopurinol 100 mg tablet 200 mg PO QDAY metoprolol tartrate 25 mg tablet 12.5 mg PO BID Qty: 90 3RF Held acetaminophen 325 mg tablet 650 mg PO Q4H PRN (Reason: Pain) Hold Instructions: Duplicate medication Referrals / Follow Up: Svitlana Becerril MD [Primary Care Provider] - Disposition Disposition (needs filled in before D/C Order can be placed): Home, Self Care 05/19/25 1039 Neville Mccall DO CC: Dr. Svitlana Becerril MD Signed Normal [facility] deOrdered By: Neville Mccall on 05-19-2025 Glucose [Mass/Vol] 122 mg/dL High 74-106 [facility] Comment on above: MANAGEMENT OF PATIEN T CARE PER NURSING PROTOCOL Hip Min 2 Views (Portable)on 05-19-2025 Hip Min 2 Views (Portable) [facility] Imaging Services [address] [place], [place] [id number] Hip Min 2 Views (Portable) MR#: [id number] Acct: [id number] Name: LAURA STEPHENS Rep #: [id number] : 1970 M 55 From: Rico Brito PCP: Dr. Svitlana Becerril MD Status: [facility] Study: Hip Min 2 Views (Portable) Date of Exam: 05/19 Exam# [id number] Ordering Dr: Neville Mccall DO PROCEDURE: HIP MIN 2 VIEWS (PORTABLE) 05/19/2025 REASON FOR EXAM: POST OP right hip arthroplasty TECHNIQUE: Two-view portable right hip to include a low centered AP pelvis. COMPARISON: Preoperative study of 2025. 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 The patient's postoperative right total hip arthroplasty, with satisfactory alignment and overlying skin shasha. No complication is noted. Reading Location: [place] [address] CC: Dr. Svitlana Becerril MD; Dr. Neville Mccall DO Coagulating Operator: Signed Normal [facility] MR/POSTOP.Joe 05-19-2025 MR/POSTOP.[facility] Medical Records Department [address] [place] [address] Anesthesia Postop Eval I 05/19/25 1041 MR#: [id number] Acct: [id number] Name: LAURA STEPHENS Rep #: [id number] : 1970 55 From: Coty Olvera CRNA PCP: Dr. Svitlana Becerril MD Status:REG [facility] [place] Y Race: C Location: [place] [address] Anesthesia: Postop Eval I Current Vital Signs Temperature: 97.9 F Pulse Rate: 64 Blood Pressure: 102/66 Respiratory Rate: 16 Pulse Ox: 96 Oxygen Delivery Method: Nasal Cannula Oxygen Flow Rate (L/min): 2 Assessment Airway patent: Yes Spontaneous unlabored respirations: Yes Mental status: Calm and Asleep nausea: No Vomiting: No Anesthesia Complication: No Fluid Hydration Crystalloid volume administer (ml): 2,000 Total IV fluid infused: 2,000 Progress Note Anesthesia document: Postop Eval 1 completed: Yes 05/19/25 104 Date Coty Olvera [employer] Cosigner Signature: Date CC: Signed Normal [facility] MR/[id number] 05-19-2025 [facility] Medical Records Department [address] [place] [address] Anesthesia Postop Eval II 05/19/25 1701 MR#: [id number] Acct: [id number] Name: LAURA STEPHENS Rep #: [id number] : 1970 55 From: Mahendra Puri MD PCP: Dr. Svitlana Becerril MD Status:DEP [facility] [place] Y Race: C Location: [facility] [place] Anesthesia Postop Eval I Sum Postop Eval Completion status Anesthesia document: Postop Eval 1 completed: Yes Anesthesia Postop Eval I Summary Anesthesia Postop Eval I Summary: Anesthesia Postop Eval I: Assessment Summary Airway patent Yes 05/19/25 10:42 [employer]SJAN Spontaneous unlabored Yes 05/19/25 10:42 [employer]SJAN respirations Mental status Calm,Asleep 05/19/25 10:42 [employer]SJAN nausea No 05/19/25 10:42 [employer]SJAN Vomiting No 05/19/25 10:42 [employer]SJAN Anesthesia Postop Eval I: Fluid Summary Crystalloid volume administer 2,000 05/19/25 10:42 [employer].SJAN (ml) Colloids volume administered ( ml) Blood Product volume administered (ml) Total IV fluid infused 2,000 05/19/25 10:42 [employer]SJRADHA Anesthesia Postop Eval I: Summary Notes Anesthesia Complication No 05/19/25 10:42 [employer]MARGI Anesthesia Complication Comment: Post-operative progress note Anesthesia: Postop Eval II Evaluation Mental status: Awake and Calm Pain Level: 1 nausea: No Vomiting: No Complications Anesthesia Complication: No 05/19/25 1701 Date Mahendra Puri MD Cosigner Signature: Date CC: Signed Normal [facility] Operative Reporton 5 Operative Report [facility] Medical Records Department [address] [facility] [place] [address] Operative Report 05/19/25 1033 MR#: [id number] Acct: [id number] Name: LAURA STEPHENS Rep #: [id number] : 1970 55 From: Neville Mccall DO PCP: Dr. Svitlana Becerril MD Status:REG [facility] [place] Location: [place] [address] Operative Report (Standard) Operative Information Date of Procedure: 05/19/25 Pre-Operative Diagnosis: Right hip AVN Post-Operative Diagnosis: Same Surgery/Procedure Performed: Right total hip arthroplasty behavioral health care manager: Yes Spinner Frame: Selwyn Subramanian Tasks completed by assistant corporation counsel: Opening closing, Implanting device and Retracting Type of Anesthesia: Spinal RN Documented Start/Stop Times: Operation Date: 05/19/25 08:15 Case Time Into Pre-Op 05/19/25 06:20 Anesthesia Start 05/19/25 08:02 Into Room 05/19/25 08:02 Procedure Start 05/19/25 08:43 Procedure End 05/19/25 10:26 Procedure Start Time: 08:43 Procedure Stop Time: 10:26 Select all DRAINS/GRAFTS/IMPLAN TS that apply: Prosthetic device Prosthetic device details: Carey Estimated Blood Loss: 125 Specimen collected: Yes Description of specimen(s) removed: Femoral head Description of surgery: Preoperative diagnosis: Right hip AVN Postoperative diagnosis: Same Procedure: CT-guided Makoplasty assisted right total hip arthroplasty Implants: Carey Accolade II stem size 4, 127 degree neck angle +2.5 head neck length 56 mm Trident II acetabular shell with 40 mm cancellous screw 36 mm ceramic head, 10 degree Trident X3 polyethylene insert. Anesthesia: Spinal EBL: 125 cc Complications: None Condition: Stable to PACU News Commentator Selwyn Subramanian. My physician service center assistant was a vital part of this case. He was important in appropriate retraction during the case, and protection of soft tissues during procedure. His intimate knowledge of the case and my steps aided in safe and expedient completion of the procedure as well as appropriate position of the extremity during the case. He was also vital in assisting with closure under my direct supervision. Indication for procedure: This is a 55-year-old male who has had long-standing arthrosis of the hip who has failed conservative treatment and wished to undergo total hip arthroplasty. We did discuss operative versus nonoperative intervention including risks of bleeding, infection , nerve artery tissue damage, need for further surgery, fracture, leg length discrepancy dislocation blood clot and need for postoperative physical therapy and postoperative expectations. An informed consent was signed. Procedure: Patient was met in the preoperative holding area once again the operative extremity was identified by both patient and physician and was marked. Patient was met by anesthesia . Anesthesia was started. patient was then positioned in the lateral decubitus position on a well-padded pegboard with an axillary roll. All bony prominences were checked and padded. The patient was prepped and draped in the usual sterile fashion. A timeout was called to ensure the proper patient procedure and extremity were being contemplated. Anatomic landmarks were palpated and marked for a standard posterior lateral approach. Prior to this the ASIS was palpated and 3 fingerbreadths proximal to this 3 pins were placed at a 45 degree angle into the iliac crest with good purchase, stab incisions were made with a 15 blade into the skin prior to placement. The Makoplasty array was then secured. A 10 blade scalpel was used to make a posterior incision through the skin and subcutaneous tissue. retractors were used and electrocautery was used to maintain meticulous hemostasis and dissect full-thickness flaps until the gluteal fascia was reached. The gluteal fascia was incised in line with the gluteal fibers. The bursal tissue was then freed from the underside and a Charnley retractor was placed. The femoral trochanteric checkpoint was placed and leg length was assessed using the trochanteric checkpoint and an EKG lead that was placed on the knee prior to prepping the leg .the fat pad was then elevated off of the external rotators with electrocautery and the external rotators were dissected off of the greater trochanter including the piriformis and were tagged with #1 Ethibond for later repair. The joint capsule opened with posterior trapdoor technique. The hip was surgically dislocated. The measurement on the preoperative CT from the top of the lesser trochanter to the femoral neck cut was marked Hohmann was placed around the lesser trochanter. A neck cutting guide was used to lamonte the neck with a Bovie and an oscillating saw was used complete the femoral neck cut. The femoral head was then removed and sized. We then turned our attention to the acetabulum. A Bovie was used to make a perforation in the anterior joint capsule and a Muel (more content not included)... Normal [facility] AST(SGOT)on 05-15-2025 AST [Catalytic activity/Vol] 43 U/L High <=37 [facility] Comment on above: Order Comment: Order Info: 3084-1 - URICOrder Info: 2857-1 - PSA Performed By: #### M 100.651, L300.4310, L500.2500, L501.1400, L100.0100, BTSPAT, L3400.0100, L300.3900, L501.9985 #### [facility] [address] [place], [place], [phone] Alanine Aminotransferas (SGP T)on 05-15-2025 ALT [Catalytic activity/Vol] 51 U/L High <=46 [facility] Comment on above: Order Comment: Order Info: 1 - URICOrder Info: 1 - PSA Performed By: #### M 100.651, L300.4310, L500.2500, L501.1400, L100.0100, BTSPAT, L3400.0100, L300.3900, L501.9985 #### [facility] [address] [place], [place], [id number] Alkaline Phosphataseon 05-15 ALK PHOS 142 U/L High 40-129 [facility] Comment on above: Order Comment: Order Info: 3083-10 - URICOrder Info: [id number] - PSA Performed By: #### M 100.651, L300.4310, L500.2500, L501.1400, L100.0100, BTSPAT, L3400.0100, L300.3900, L501.9985 #### [facility] [address] [facility] [address] [place], [place], [id number] Fructosamineon 05-15-2025 FRUCTOSAMINE 240 umol/L Normal 0-285 [facility] Comment on above: Result Comment: Publ ished reference interval for apparently healthy subjects between age 20 and 60 is 205 - 285 umol/L and in a poorly controlled diabetic population is 228 - 563 umol/L with a mean of 396 umol/L. Performed at: [address], [place], [place] [id number] Dual Rate Supervisor: Aleksey Duran PhD, Phone: [phone] Performed By: #### M 100.651, L300.4310, L500.2500, L501.1400, L100.0100, BTSPAT, L3400.0100, L300.3900, L501.9985 #### [facility] [address] [place], [address] MR/PATMartha 05-15-2025 MR/PAT.[facility] Medical Records Department [address] [place] [address] PAT - Anesthesia 05/15/251917 MR#: [id number] Acct: [id number] Name: LAURA STEPHENS Rep #: [id number] : 1970 55 From: Zuhair Denis MD PCP: Dr. Svitlana Becerril MD Status:PRE SDC Y Race: C [place] [facility] [place]Assessment Diagnosis/Proposed Procedure Planned Operative Procedure(s): RIGHT TOTAL HIP ARTHROPLASTY Anesthesia History Anesthesia History - environmental associate: Anesthesia History - environmental associate Hx Hospitalization No 05/05/25 14:01 Any Problems [...] take am of surgery PONV PONV - environmental associate: PONV - environmental associate Female No 05/05/25 14:01 HX of Motion Sickness No 05/05/25 14:01 HX of N/V After Surgery No 05/05/25 14:01 Non-Smoker Yes 05/05/25 14:01 Duration of Surgery greater Yes 05/05/25 14:01 than 60 minutes Number of Risk Factors 2 05/05/25 14:01 PONV Score Moderate Risk 05/05/25 14:01 Height Weight Height Weight: Anesthesia: Height Weight Height 6 ft 02/06/25 08:04 Respiratory Assessment Respiratory Assessment - environmental associate: Respiratory Tract Infection Hx - environmental associate Hx Respiratory Tract Infection No 05/05/25 14:01 STOP Sleep Apnea STOP Sleep Apnea - environmental associate: STOP Sleep Apnea - environmental associate Hx Hypertension Yes: CONTROLLED WITH MED 05/05/25 [...] Tobacco Use History Tobacco Use History - environmental associate: Tobacco Use History - environmental associate Tobacco Use Smoking Status Current every day smoker 05/05/25 14:01 Hx Tobacco Use No 05/05/25 14:01 Years Smoking Packs Smoked per Day Smoking Cessation Date was Yes - quit smoking within 15 05/05/25 14:01 within the last 15 years years Hx Smoking Cessation Date Hx Smoking Cessation Counseling Hematologic Medial History Hematologic Hx - environmental associate: Hematologic Medical Hx - heritage consultant Hx of Blood Transfusion No 05/05/25 14:01 [...] answer at this time (ie. 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 Normal [facility] MRSA/SAID NASAL SCREENon MRSA+SAID SCRN Reason for Exam: Surgery MRSA MRSA Negative S. AUREUS S. aureus Negative Normal [facility] Comment on above: Performed By: #### M 100.651, L300.4310, L500.2500, L501.1400, L100.0100, BTSPAT, L3400.0100, L300.3900, L501.9985 #### [facility] [address] [place], [place], [phone] (534) PSA,Total - Annual Screenon 05-15-2025 PSA,TOT SCREEN 0.43 ng/mL Normal 0.02-4.00 [facility] Comment on above: Order Comment: Order Info: 3084-1 - URICOrder Info: [id number] - PSA Result Comment: This test was [...] to confirm baseline values. Performed By: #### M 100.651, L300.4310, L500.2500, L501.1400, L100.0100, BTSPAT, L3400.0100, L300.3900, L501.9985 #### [facility] [address] [place], [address] Protein, Totalon 05-15-2025 Albumin/Globulin [Mass ratio] 1.5 {ratio} Normal 0.9-2.4 [facility] Comment on above: Order Comment: Order Info: 3083-10 - URICOrder Info: [id number] - PSA Performed By: #### M 100.651, L300.4310, L500.2500, L501.1400, L100.0100, BTSPAT, L3400.0100, L300.3900, L501.9985 #### [facility] [address] [place], [address] Globulin (S) [Mass/Vol] 3.0 g/dL Normal 2.2-4.2 [facility] Comment on above: Order Comment: Order Info: 3083-10 - URICOrder Info: [id number] - PSA Performed By: #### M 100.651, L300.4310, L500.2500, L501.1400, L100.0100, BTSPAT, L3400.0100, L300.3900, L501.9985 #### [facility] [address] [place], [address] T PROT 7.5 g/dL Normal 5.9-8.4 [facility] Comment on above: Order Comment: Order Info: 3083-10 - URICOrder Info: [id number] - PSA Performed By: #### M 100.651, L300.4310, L500.2500, L501.1400, L100.0100, BTSPAT, L3400.0100, L300.3900, L501.9985 #### [facility] [address] [place], [address] Total Bilirubinon 05-15-2025 Bilirubin [Mass/Vol] 0.30 mg/dL Normal 0.00-1.30 [facility] Comment on above: Order Comment: Order Info: 3083-10 - URICOrder Info: [id number] - PSA Performed By: #### M 100.651, L300.4310, L500.2500, L501.1400, L100.0100, BTSPAT, L3400.0100, L300.3900, L501.9985 #### [facility] [address] [place], [place], [phone] Absolute lymphocyte countOrd ered By: Neville Mccall on 05-14-2025 Lymphocytes Auto (Unsp spec) [#/Vol] 2.92 10*3/uL 0.83-4.51 [facility] Absolute neutrophil countOrd ered By: Neville Mccall on 05-14-2025 Neutrophils (Bld) [#/Vol] 3.5 10*3/uL 2.0-7.7 [facility] Activated partial thrombopla stin time (aPTT) in platelet poor plasma by coagulation aOrdered By: Neville Mccall on 05-14-2025 aPTT Coag (PPP) [Time] 28.3 s 24.1-36.[address] [facility] Anion gap in Serum or Plasma Ordered By: Neville Mccall on 05-14-2025 Anion gap [Moles/Vol] 15 mmol/L - [facility] Automated lymphocyte count a s percentage of total leukocytesOrdered By: Neville Mccall on 05-14-2025 Lymphocytes/100 WBC Auto (Unsp spec) 40.1 % [facility] BUN/creatinine ratioOrdered By: Neville Mccall on 05-14-2025 Urea nitrogen/Creatinine [Mass ratio] 14.8 mg/mg - [facility] Basic Metabolic Profile (BMP )on 05-14-2025 BUN/CRE 14.8 RATIO Normal - [facility] Comment on above: Order Comment: SEND URIC, BMP TO Performed By: #### M 100.651, L300.4310, L500.2500, L501.1400, L100.0100, BTSPAT, L3400.0100, L300.3900, L501.9985 #### [facility] [address] [place], [address] Calcium [Mass/Vol] 9.4 mg/dL Normal 7.6-11.0 [facility] Comment on above: Order Comment: SEND URIC, BMP TO Performed By: #### M 100.651, L300.4310, L500.2500, L501.1400, L100.0100, BTSPAT, L3400.0100, L300.3900, L501.9985 #### [facility] [address] [place], [address] Chloride [Moles/Vol] 105 mmol/L Normal 98-108 [facility] Comment on above: Order Comment: SEND URIC, BMP TO Performed By: #### M 100.651, L300.4310, L500.2500, L501.1400, L100.0100, BTSPAT, L3400.0100, L300.3900, L501.9985 #### [facility] [address] [place], [address] CO2 [Moles/Vol] 20.6 mmol/L Low 21.0-32.0 [facility] Comment on above: Order Comment: SEND URIC, BMP TO Performed By: #### M 100.651, L300.4310, L500.2500, L501.1400, L100.0100, BTSPAT, L3400.0100, L300.3900, L501.9985 #### [facility] [address] [place], [address] Creatinine [Mass/Vol] 0.99 mg/dL Normal 0.70-1.20 [facility] Comment on above: Order Comment: SEND URIC, BMP TO Performed By: #### M 100.651, L300.4310, L500.2500, L501.1400, L100.0100, BTSPAT, L3400.0100, L300.3900, L501.9985 #### [facility] [address] [place], [address] GAP 15 Normal 5-15 [facility] Comment on above: Order Comment: SEND URIC, BMP TO Performed By: #### M 100.651, L300.4310, L500.2500, L501.1400, L100.0100, BTSPAT, L3400.0100, L300.3900, L501.9985 #### [facility] [address] [place], [address] GFR/1.73 sq M.predicted among non-blacks MDRD (S/P/Bld) [Vol rate/Area] 91 mL/min/{1.73_m2} Normal >60 [facility] Comment on above: Order Comment: SEND URIC, BMP TO Result Comment: mL/m in/1.73m2 CKD-EPI Creatinine Equation (2020) Performed By: #### M 100.651, L300.4310, L500.2500, L501.1400, L100.0100, BTSPAT, L3400.0100, L300.3900, L501.9985 #### [facility] [address] [place], [address] Glucose [Mass/Vol] 123 mg/dL High 70-99 [facility] Comment on above: Order Comment: SEND URIC, BMP TO Performed By: #### M 100.651, L300.4310, L500.2500, L501.1400, L100.0100, BTSPAT, L3400.0100, L300.3900, L501.9985 #### [facility] [address] [place], [address] Potassium [Moles/Vol] 4.0 mmol/L Normal 3.3-5.1 [facility] Comment on above: Order Comment: SEND URIC, BMP TO Performed By: #### M 100.651, L300.4310, L500.2500, L501.1400, L100.0100, BTSPAT, L3400.0100, L300.3900, L501.9985 #### [facility] [address] [place], [address] Sodium [Moles/Vol] 141 mmol/L Normal 133-145 [facility] Comment on above: Order Comment: SEND URIC, BMP TO Performed By: #### M 100.651, L300.4310, L500.2500, L501.1400, L100.0100, BTSPAT, L3400.0100, L300.3900, L501.9985 #### [facility] [address] [place], [address] Urea nitrogen [Mass/Vol] 15 mg/dL Normal 4-19 [facility] Comment on above: Order Comment: SEND URIC, BMP TO Performed By: #### M 100.651, L300.4310, L500.2500, L501.1400, L100.0100, BTSPAT, L3400.0100, L300.3900, L501.9985 #### [facility] [address] [place], [address] Basophil percentageOrdered B y: Neville Mccall on 05-14-2025 Basophils/100 WBC (Bld) 1.0 % 0-1 [facility] Bilirubin, totalOrdered By: Svitlana Becerril on 05-14-2025 Bilirubin [Mass/Vol] 0.30 mg/dL 0.00-1.30 [facility] CBC W/Diff, Automatedon 04-16 Absolute Lymph 2.92 X10 3/uL Normal 0.83-4.51 [facility] Comment on above: Performed By: #### M 100.651, L300.4310, L500.2500, L501.1400, L100.0100, BTSPAT, L3400.0100, L300.3900, L501.9985 #### [facility] [address] [place], [place], [address] Performed By: #### L 100.0100 #### [facility] [address] [place], [address] Absolute Neut 3.5 X10 3/uL Normal 2.0-7.7 [facility] Comment on above: Performed By: #### M 100.651, L300.4310, L500.2500, L501.1400, L100.0100, BTSPAT, L3400.0100, L300.3900, L501.9985 #### [facility] [address] [place], [address] Performed By: #### L 100.0100 #### [facility] [address] [place], [address] Basophils/100 WBC (Bld) 1.0 % Normal 0-1 [facility] Comment on above: Performed By: #### M 100.651, L300.4310, L500.2500, L501.1400, L100.0100, BTSPAT, L3400.0100, L300.3900, L501.9985 #### [facility] [address] [place], [address] Performed By: #### L 100.0100 #### [facility] [address] [place], [address] Eosinophils/100 WBC (Bld) 2.5 % Normal 0-5 [facility] Comment on above: Performed By: #### M 100.651, L300.4310, L500.2500, L501.1400, L100.0100, BTSPAT, L3400.0100, L300.3900, L501.9985 #### [facility] [address] [place], [address] Performed By: #### L 100.0100 #### [facility] [address] [place], [address] Erythrocyte distribution width (RBC) [Ratio] 14.3 % Normal 11.6-14.6 [facility] Comment on above: Performed By: #### M 100.651, L300.4310, L500.2500, L501.1400, L100.0100, BTSPAT, L3400.0100, L300.3900, L501.9985 #### [facility] [address] [place], [address] Performed By: #### L 100.0100 #### [facility] [address] [place], [address] Hematocrit (Bld) [Volume fraction] 41.0 % Normal 40-54 [facility] Comment on above: Performed By: #### M 100.651, L300.4310, L500.2500, L501.1400, L100.0100, BTSPAT, L3400.0100, L300.3900, L501.9985 #### [facility] [place], [address] Performed By: #### L 100.0100 #### [facility] [place], [address] Hemoglobin (Bld) [Mass/Vol] 13.6 g/dL Normal 13.0-16.5 [facility] Comment on above: Performed By: #### M 100.651, L300.4310, L500.2500, L501.1400, L100.0100, BTSPAT, L3400.0100, L300.3900, L501.9985 #### [facility] [address] [place], [address] Performed By: #### L 100.0100 #### [facility] [address] [place], [address] IG% 0.500 Normal 0.0-0.9 [facility] Comment on above: Result Comment: IG% - Immature Granulocytes (promyelocytes, myelocytes and metamyelocytes) > 1% indicates that a LEFT SHIFT is Present. Performed By: #### M 100.651, L300.4310, L500.2500, L501.1400, L100.0100, BTSPAT, L3400.0100, L300.3900, L501.9985 #### [facility] [address] [place], [address] Performed By: #### L 100.0100 #### [facility] [address] [place], [address] Lymphocytes/100 WBC (Bld) 40.1 % Normal 19-41 [facility] Comment on above: Performed By: #### M 100.651, L300.4310, L500.2500, L501.1400, L100.0100, BTSPAT, L3400.0100, L300.3900, L501.9985 #### [facility] [address] [place], [address] Performed By: #### L 100.0100 #### [facility] [address] [place], [address] MCH (RBC) [Entitic mass] 29.1 pg Normal 27.0-32.0 [facility] Comment on above: Performed By: #### M 100.651, L300.4310, L500.2500, L501.1400, L100.0100, BTSPAT, L3400.0100, L300.3900, L501.9985 #### [facility] [address] [place], [address] Performed By: #### L 100.0100 #### [facility] [address] [facility] [place], [address] MCHC (RBC) [Mass/Vol] 33.2 g/dL Normal 32-36 [facility] Comment on above: Performed By: #### M 100.651, L300.4310, L500.2500, L501.1400, L100.0100, BTSPAT, L3400.0100, L300.3900, L501.9985 #### [facility] [address] [place], [address] Performed By: #### L 100.0100 #### [facility] [address] [place], [address] MCV (RBC) [Entitic vol] 87.8 fL Normal 80-94 [facility] Comment on above: Performed By: #### M 100.651, L300.4310, L500.2500, L501.1400, L100.0100, BTSPAT, L3400.0100, L300.3900, L501.9985 #### [facility] [address] [place], [address] Performed By: #### L 100.0100 #### [facility] [address] [place], [address] Monocytes/100 WBC (Bld) 7.8 % Normal 0-10 [facility] Comment on above: Performed By: #### M 100.651, L300.4310, L500.2500, L501.1400, L100.0100, BTSPAT, L3400.0100, L300.3900, L501.9985 #### [facility] [address] [place], [address] Performed By: #### L 100.0100 #### [facility] [address] [place], [address] Neutrophils/100 WBC (Bld) 48.1 % Normal 47-70 [facility] Comment on above: Performed By: #### M 100.651, L300.4310, L500.2500, L501.1400, L100.0100, BTSPAT, L3400.0100, L300.3900, L501.9985 #### [facility] [address] [place], [address] Performed By: #### L 100.0100 #### [facility] [address] [place], [address] Nucleated RBC (Bld) [#/Vol] 0 10*3/uL Normal 0-5 [facility] Comment on above: Performed By: #### M 100.651, L300.4310, L500.2500, L501.1400, L100.0100, BTSPAT, L3400.0100, L300.3900, L501.9985 #### [facility] [address] [place], [address] Performed By: #### L 100.0100 #### [facility] [address] [place], [address] Platelet mean volume (Bld) [Entitic vol] 10.3 fL Normal 6.2-12.0 [facility] Comment on above: Performed By: #### M 100.651, L300.4310, L500.2500, L501.1400, L100.0100, BTSPAT, L3400.0100, L300.3900, L501.9985 #### [facility] [address] [place], [address] Performed By: #### L 100.0100 #### [facility] [address] [place], [address] Platelets (Bld) [#/Vol] 293 10*3/uL Normal 150-450 [facility] Comment on above: Performed By: #### M 100.651, L300.4310, L500.2500, L501.1400, L100.0100, BTSPAT, L3400.0100, L300.3900, L501.9985 #### [facility] [address] [place], [address] Performed By: #### L 100.0100 #### [facility] [address] [place], [address] RBC (Bld) [#/Vol] 4.67 10*6/uL Normal 4.6-6.2 [facility] Comment on above: Performed By: #### M 100.651, L300.4310, L500.2500, L501.1400, L100.0100, BTSPAT, L3400.0100, L300.3900, L501.9985 #### [facility] [address] [place], [address] Performed By: #### L 100.0100 #### [facility] [address] [place], [address] RDW SD 45.4 fl High 35.1-43.9 [facility] Comment on above: Performed By: #### M 100.651, L300.4310, L500.2500, L501.1400, L100.0100, BTSPAT, L3400.0100, L300.3900, L501.9985 #### [facility] [address] [place], [address] Performed By: #### L 100.0100 #### [facility] [address] [place], [address] WBC (Bld) [#/Vol] 7.3 10*3/uL Normal 4.4-11.0 [facility] Comment on above: Performed By: #### M 100.651, L300.4310, L500.2500, L501.1400, L100.0100, BTSPAT, L3400.0100, L300.3900, L501.9985 #### [facility] [address] [place], [address] Performed By: #### L 100.0100 #### [facility] [address] [place], [address] Carbon dioxide, total [Moles /volume] in Central venous bloodOrdered By: Neville Mccall on 05-14-2025 CO2 [Moles/Vol] 20.6 mmol/L Low 21.0-32.0 [facility] Cardiology Visit Reporton Cardiology Visit Report [facility] [address] [place] [address] OFFICE VISIT Date of Service: 05/14/25 MR#: [id number] Acct: [id number] Name: LAURA STEPHENS Rep #: [id number] : 1970 Provider: ISABELLE rodriguez Age/Sex: 55/M Location: [facility] Status: Signed HPI HPI History of Present Illness Details: Patient is a 55-year-old white male comes in for cardiovascular monitoring. Patient underwent coronary bypass graft surgery October 2022 receiving a SNOWDEN to the LAD and a vein graft to the OM1 branch of the circumflex at [facility]. 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 Normal [facility] Chloride assayOrdered By: Arabella Mccall on 05-14-2025 Chloride [Moles/Vol] 105 mmol/L 98-108 [facility] Eosinophil percentageOrdered By: Neville Mccall on 05-14-2025 Eosinophils/100 WBC (Bld) 2.5 % 0-5 [facility] Erythrocyte distribution wid th ratioOrdered By: Neville Mccall on 05-14-2025 Erythrocyte distribution width (RBC) [Ratio] 14.3 % 11.6-14.6 [facility] Erythrocyte distribution wid th standard deviationOrdered By: Neville Mccall on 05-14-2025 Erythrocyte distribution width (RBC) [Ratio] 45.4 fl High 35.1-43.9 [facility] Glomerular filtration rate ( GFR) estimation/1.73 sq m using serum, plasma, or whole bOrdered By: Neville Mccall on 05-14-2025 GFR/1.73 sq M.predicted among non-blacks MDRD (S/P/Bld) [Vol rate/Area] 91 mL/min/{1.73_m2} >60 [facility] Comment on above: mL/min/1.73m2 CKD-EP I Creatinine Equation (2020) Hematocrit Auto (Bld) [Volum e fraction]Ordered By: Neville Mccall on 05-14-2025 Hematocrit (Bld) [Volume fraction] 41.0 % 40-54 [facility] Hemoglobin A1con 05-14-2025 HbA1c (Bld) [Mass fraction] 6.4 % High <=5.6 [facility] Comment on above: Result Comment: Norm al < 5.7 % Prediabetic 5.7 - 6.4 % Diabetic >or= 6.5 % Please note range changes. Performed By: #### M 100.651, L300.4310, L500.2500, L501.1400, L100.0100, BTSPAT, L3400.0100, L300.3900, L501.9985 #### [facility] [address] [place], [address] Hemoglobin A1c percentageOrd ered By: Neville Mccall on 05-14-2025 HbA1c (Bld) [Mass fraction] 6.4 % High <5.7 [facility] Comment on above: Normal < 5.7 % Predi abetic 5.7 - 6.4 % Diabetic >or= 6.5 % Please note range changes. Hemoglobin measurementOrdere d By: Neville Mccall on 05-14-2025 Hemoglobin (Bld) [Mass/Vol] 13.6 g/dL 13.0-16.5 [facility] Immature granulocytes/100 WB C Auto (Bld)Ordered By: Neville Mccall on 05-14-2025 Immature granulocytes/100 WBC (Bld) 0.500 % 0.0-0.9 [facility] Comment on above: IG% - Immature Granu locytes (promyelocytes, myelocytes and metamyelocytes) > 1% indicates that a LEFT SHIFT is Present. International normalized rat io (INR) calculationOrdered By: Neville Mccall on 05-14-2025 INR Coag (Bld) [Relative time] 1.1 {INR} [facility] - Chemistry and C hemistry - challengeOrdered By: Svitlana Becerril on 05-14-2025 AST [Catalytic activity/Vol] 43 U/L High <38 [facility] MCV (mean corpuscular volume ) determinationOrdered By: Neville Mccall on 05-14-2025 MCV (RBC) [Entitic vol] 87.8 fL 80-94 [facility] MRSA screenOrdered By: Michael Mccall on 05-14-2025 MRSA DNA ZAHIRA+probe Ql (Unsp spec) [facility] Magnesiumon 05-14-2025 Magnesium [Mass/Vol] 2.0 mg/dL Normal 1.5-2.2 [facility] Comment on above: Performed By: #### M 100.651, L300.4310, L500.2500, L501.1400, L100.0100, BTSPAT, L3400.0100, L300.3900, L501.9985 #### [facility] [address] [place], [address] Magnesium measurement (mass/ volume)Ordered By: Baldomero Cesar on 05-14-2025 Magnesium (Unsp spec) [Mass/Vol] 2.0 mg/dL 1.5-2.2 [facility] Mean corpuscular hemoglobin (MCH) determinationOrdered By: Neville Mccall on 05-14-2025 MCH (RBC) [Entitic mass] 29.1 pg 27.0-32.0 [facility] Mean corpuscular hemoglobin concentration (MCHC) determinationOrdered By: Neville Mccall on 05-14-2025 MCHC (RBC) [Mass/Vol] 33.2 g/dL 32-36 [facility] Mean platelet volume determi nationOrdered By: Neville Mccall on 05-14-2025 Platelet mean volume (Bld) [Entitic vol] 10.3 fL 6.2-12.0 [facility] Monocyte percentageOrdered B y: Neville Mccall on 05-14-2025 Monocytes/100 WBC (Bld) 7.8 % 0-10 [facility] Neutrophil percentageOrdered By: Neville Mccall on 05-14-2025 Neutrophils/100 WBC (Bld) 48.1 % 47-70 [facility] Nucleated red blood cell per centageOrdered By: Neville Mccall on 05-14-2025 Nucleated RBC/100 WBC (Bld) [Ratio] 0 % 0-5 [facility] Partial Thromboplast Timeon 05-14-2025 aPTT Coag (Bld) [Time] 28.3 s Normal 24.1-36.[address] [facility] Comment on above: Performed By: #### M 100.651, L300.4310, L500.2500, L501.1400, L100.0100, BTSPAT, L3400.0100, L300.3900, L501.9985 #### [facility] [address] [place], [place], [id number] Platelet countOrdered By: Arabella Mccall on 05-14-2025 Platelets (Bld) [#/Vol] 293 10*3/uL 150-450 [facility] Potassium measurement (mass/ volume)Ordered By: Neville Mccall on 05-14-2025 Potassium (Unsp spec) [Mass/Vol] 4.0 mmol/L 3.3-5.1 [facility] Prothrombin Time w/INRon INR Coag (PPP) [Relative time] 1.1 {INR} Normal [facility] Comment on above: Performed By: #### M 100.651, L300.4310, L500.2500, L501.1400, L100.0100, BTSPAT, L3400.0100, L300.3900, L501.9985 #### [facility] [address] [place], [address] PT Coag (PPP) [Time] 13.9 s Normal 11.7-14.9 [facility] Comment on above: Performed By: #### M 100.651, L300.4310, L500.2500, L501.1400, L100.0100, BTSPAT, L3400.0100, L300.3900, L501.9985 #### [facility] [address] [place], [address] Prothrombin timeOrdered By: Neville Mccall on 05-14-2025 PT Coag (PPP) [Time] 13.9 s 11.7-14.9 [facility] RBC Auto (Bld) [#/Vol]Ordere d By: Neville Mccall on 05-14-2025 RBC (Bld) [#/Vol] 4.67 10*6/uL 4.6-6.2 [facility] Serum creatinine measurement (mass/volume)Ordered By: Neville Mccall on 05-14-2025 Creatinine [Mass/Vol] 0.99 mg/dL 0.70-1.20 [facility] Serum globulin measurementOr dered By: Svitlana Becerril on 05-14-2025 Globulin (S) [Mass/Vol] 3.0 g/dL 2.2-4.2 [facility] Serum glucose measurement (m ass/volume)Ordered By: Neville Mccall on 05-14-2025 Glucose [Mass/Vol] 123 mg/dL High 70-99 [facility] Serum or plasma alanine souza otransferase (ALT) measurementOrdered By: Svitlana Becerril on 05-14-2025 ALT [Catalytic activity/Vol] 51 U/L High <47 [facility] Serum or plasma albumin/glob ulin mass ratioOrdered By: Svitlana Becerril on 05-14-2025 Albumin/Globulin [Mass ratio] 1.5 {ratio} 0.9-2.4 [facility] Serum or plasma alkaline sumanth sphatase measurementOrdered By: Svitlana Becerril on 05-14-2025 ALP [Catalytic activity/Vol] 142 U/L High 40-129 [facility] Serum or plasma calcium jose urement (mass/volume)Ordered By: Neville Mccall on 05-14-2025 Calcium [Mass/Vol] 9.4 mg/dL 7.6-11.0 [facility] Serum or plasma urea nitroge n measurement (mass/volume)Ordered By: Neville Mccall on 05-14-2025 Urea nitrogen [Mass/Vol] 15 mg/dL 4-19 [facility] Serum or plasma uric acid me asurement (mass/volume)Ordered By: Neville Mccall on 05-14-2025 Urate [Mass/Vol] 6.9 mg/dL 3.5-7.2 [facility] Comment on above: The drugs N-Acetylcy steine and Metamizole may falsely depress this assay. Sodium levelOrdered By: Yuri Mccall on 05-14-2025 Sodium [Moles/Vol] 141 mmol/L 133-145 [facility] Total proteinOrdered By: Alexandra Becerril on 05-14-2025 Protein [Mass/Vol] 7.5 g/dL 5.9-8.4 [facility] Type AND Screen - PAT ONLYon 05-14-2025 Ab SCREEN GEL Negative Normal [facility] Comment on above: Order Comment: SEND CAROL BMP TO Surgery Date: 05/19/25 Reason for Laboratory Test PREOP [id number] N/A N N S RIGHT THR Performed By: #### M 100.651, L300.4310, L500.2500, L501.1400, L100.0100, BTSPAT, L3400.0100, L300.3900, L501.9985 #### [facility] [address] [place], [address] Uric Acidon 05-14-2025 URIC 6.9 mg/dL Normal 3.5-7.2 [facility] Comment on above: Order Comment: SEND URIC, BMP TO Result Comment: The drugs N-Acetylcysteine and Metamizole may falsely depress this assay. Performed By: #### M 100.651, L300.4310, L500.2500, L501.1400, L100.0100, BTSPAT, L3400.0100, L300.3900, L501.9985 #### [facility] [address] [place], [address] White blood cell (WBC) count Ordered By: Neville Mccall on 05-14-2025 WBC (Bld) [#/Vol] 7.3 10*3/uL 4.4-11.0 [facility] Electrocardiogram reportOrde red By: Velasquez Diop on 05-13-2025 EKG study [facility] Cardiovascular Services [address] [place] [address] 12 Lead EKG 05/12/25 1200 MR#: [id number] Acct: [id number] Name: LAURA STEPHENS Rep #:[id number] : 1970 55 From: Velasquez Diop MD Attending Dr: Dr. Neville Mccall DO Status: PRE [facility] [place]: Neville Mccall DO Date: 05/12/25 [place] [facility] [place] Sex: M C Admitted: Test Reason : [...] abnormality Prolonged QT Abnormal ECG Confirmed by JADON ESPINOZA, VELASQUEZ ([id number]), copy editor CHETAN STEEN ([id number]) on 58:39:11 AM Referred By: Neville Mccall Confirmed By: VELASQUEZ DIOP MD 05/13/25 0839 Date _ Velasquez Diop MD CC: Dr. Svitlana Becerril MD; Dr. Neville Mccall DO ~ Signed [facility] Work Phone: Extremity Lower without Cont raon 05-13-2025 Extremity Lower without Contra [facility] Imaging Services [address] [place] [id number] Extremity Lower without Contra MR#: [id number] Acct: [id number] Name: LAURA STEPHENS Rep #: [id number] : 1970 M 55 From: Pete Mas MD PCP: Dr. Svitlana Becerril MD Status: REG CLI Study: Extremity Lower without Contra Date of Exam: 0 05/13/25 Exam# [id number] Ordering Dr: Neville Mccall DO PROCEDURE: EXTREMITY [...] Svitlana Becerril MD; Dr. Neville Mccall DO Coagulating Operator: Signed Normal [facility] 12 Lead EKGon 05-12-2025 12 Lead EKG [facility] Cardiovascular Services [address] [place] [address] 12 Lead EKG 05/12/25 1200 MR#: [id number] Acct: [id number] Name: LAURA STEPHENS Rep #: [id number] : 1970 55 From: Velasquez Diop MD Attending Dr: Dr. Neville Mccall DO Status: [place] E SDC Ordering Dr: Neville Mccall DO Date: 05/12/25 [place] [facility] [place] Sex: M C Admitted: Test Reason : [...] abnormality Prolonged QT Abnormal ECG Confirmed by VELASQUEZ DIOP MD ([id number]), copy editor CHETAN STEEN ([id number]) on 05/13/2025 8:39:11 AM Referred By: Neville Mccall Confirmed By: VELASQUEZ DIOP MD 05/13/25 0839 Date Velasquez Diop MD CC: Dr. Svitlana Becerril MD; Dr. Neville Mccall DO Signed Normal [facility] HIP, UNI W/ Pelvis 2-3 Views on 2025 HIP, UNI W/ Pelvis 2-3 Views [facility] Imaging Services [address] [place], [place] [id number] HIP, UNI W/ Pelvis 2-3 Views MR#: [id number] Acct: [id number] Name: LAURA STEPHENS Rep #: [id number] : 1970 M 55 From: Ryan loza MD PCP: Dr. Svitlana Becerril MD Status: DEP AMB Study: HIP, UNI W/ Pelvis 2-3 Views Date of Exam: 09/08 Exam# [id number] Ordering Dr: Neville Mccall DO PROCEDURE: HIP, [...] narrowing and femoral acetabular impingement. Reading Location: [place] [address] CC: Dr. Svitlana Becerril MD; Dr. Neville Mccall DO Coagulating Operator: Signed Normal [facility] Orthopedic Visit Reporton Orthopedic Visit Report [facility] [address] [place] [address] [address] [place], [place] [address] OFFICE VISIT Date of Service: 04/24/25 MR#: [id number] Acct: [id number] Name: LAURA STEPHENS Rep #: [id number] : 1970 Provider: Dr. 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 Normal [facility] Foot min 3 Viewson Foot min 3 Views [facility] Imaging Services [address] [place], [place] [address] Foot min 3 Views MR#: [id number] Acct: [id number] Name: LAURA STEPHENS Rep #: [id number] : 1970 M 54 From: Srinivasan Haskins MD PCP: Dr. Svitlana Becerril MD Status: REG CLI Study: Foot min 3 Views Date of Exam: 03/16/25 Exam# [id number] Ordering Dr: Svitlana Becerril MD PROCEDURE: FOOT MIN 3 VIEWS 03/16/2025 REASON FOR EXAM: LEFT FOOT PAIN TECHNIQUE: 3 views of the left foot. COMPARISON: None FINDINGS: Bones: No visible fracture. No suspicious bone lesion. Joints: Normal alignment. Joint spaces preserved. No arthropathic features. Soft tissues: Soft tissues are unremarkable. RAD/Foot min 3 Views IMPRESSION: Unremarkable radiographs of the left foot. Reading Location: [id number] CC: Dr. Svitlana Becerril MD Coagulating Operator: Signed Normal [facility] Serum or plasma uric acid me asurement (mass/volume)Ordered By: Svitlana Becerril on 03-16-2025 Urate [Mass/Vol] 6.0 mg/dL 3.5-7.2 [facility] Comment on above: The drugs N-Acetylcy steine and Metamizole may falsely depress this assay. Uric Acidon 03-16-2025 URIC 6.0 mg/dL Normal 3.5-7.2 [facility] Comment on above: Order Comment: Order Date: 03/16/25Order Info: [id number] - URIC Result Comment: The drugs N-Acetylcysteine and Metamizole may falsely depress this assay. Performed By: #### M 100.651, L300.4310, L500.2500, L501.1400, L100.0100, BTSPAT, L3400.0100, L300.3900, L501.9985 #### [facility] [address] [place], [address] HIP, UNI W/ Pelvis 2-3 Views on 02-06-2025 HIP, UNI W/ Pelvis 2-3 Views [facility] Imaging Services [address] [place] [address] HIP, UNI W/ Pelvis 2-3 Views MR#: [id number] Acct: [id number] Name: LAURA STEPHENS Rep #: [id number] : 1970 M 54 From: Pete Mas MD PCP: Dr. 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 Reading Location: [facility] CC: Dr. Svitlana Becerril MD; Dr. Neville Mccall DO Coagulating Operator: Signed Normal [facility] Orthopedic Visit Reporton Orthopedic Visit Report [facility] [address] [place] [address] 5 [place] [address] OFFICE VISIT Date of Service: 02/06/25 MR#: [id number] Acct: [id number] Name: LAURA STEPHENS Rep #: [id number] : 1970 Provider: Dr. Neville pina DO Age/Sex: 54/M Location[place] [facility] [place] Status: Signed Intake Vital Signs 10/31/24 09:20 [...] pain Essential hypertension Atherosclerotic heart disease of [place] coronary artery without angina pectoris Multi-vessel coronary [...] right hip follow-up. Patient rates his pain 11/24 today. Patient states he did nonweight-bearing the [...] We would (more content not included)... Normal [facility] Serum or plasma uric acid me asurement (mass/volume)Ordered By: Neville Mccall on 02-06-2025 Urate [Mass/Vol] 9.5 mg/dL High 3.5-7.2 [facility] Comment on above: The drugs N-Acetylcy steine and Metamizole may falsely depress this assay. Uric Acidon 02-06-2025 URIC 9.5 mg/dL High 3.5-7.2 [facility] Comment on above: Result Comment: The drugs N-Acetylcysteine and Metamizole may falsely depress this assay. Performed By: #### M 100.651, L300.4310, L500.2500, L501.1400, L100.0100, BTSPAT, L3400.0100, L300.3900, L501.9985 #### [facility] [address] [place], [place], [id number] HIP, UNI W/ Pelvis 2-3 Views on 01-09-2025 HIP, UNI W/ Pelvis 2-3 Views [facility] Imaging Services [address] [place] [address] HIP, UNI W/ Pelvis 2-3 Views MR#: [id number] Acct: [id number] Name: LAURA STEPHENS Rep #: [id number] : 1970 M 54 From: Víctor Fraga i, DO PCP: Dr. Svitlana Becerril MD Status: DEP AMB Study: HIP, UNI W/ Pelvis 2-3 Views Date of Exam: Exam# [id number] Ordering Dr: Neville Mccall DO PROCEDURE: Pelvis [...] Svitlana Becerril MD; Dr. Neville Mccall DO Coagulating Operator: Signed Normal [facility] Orthopedic Visit Reporton Orthopedic Visit Report [facility] [address] [place] [address] OFFICE VISIT Date of Service: 01/09/25 MR#: [id number] Acct: [id number] Name: LAURA STEPHENS Rep #: [id number] : 1970 Provider: Dr. Neville Borru so, DO Age/Sex: 54/M Location: [facility] Status: Signed Intake Vital Signs 10/31/24 09:20 [...] pain Essential hypertension Atherosclerotic heart disease of [place] coronary artery without angina pectoris Multi-vessel coronary [...] right hip follow-up. Patient rates his pain 11/24 today. Patient states he did nonweight-bearing the [...] to gout, myalgia, anxiety depression, non-ST elevation VT, unstable angina, GI bleed, borderline type 2 [...] in his left hip back in 2019 (more content not included)... Normal [facility] Serum or plasma uric acid me asurement (mass/volume)Ordered By: Timmy Manzano on 12-26-2024 Urate [Mass/Vol] 10.8 mg/dL High 3.5-7.2 [facility] Comment on above: The drugs N-Acetylcy steine and Metamizole may falsely depress this assay. Uric Acidon 12-26-2024 URIC 10.8 mg/dL High 3.5-7.2 [facility] Comment on above: Result Comment: The drugs N-Acetylcysteine and Metamizole may falsely depress this assay. Performed By: #### M 100.651, L300.4310, L500.2500, L501.1400, L100.0100, BTSPAT, L3400.0100, L300.3900, L501.9985 #### [facility] [address] [place], [address] Bilirubin directOrdered By: Lalito Zamora on 10-31-2024 Bilirubin.direct [Mass/Vol] 0.13 mg/dL 0.00-0.30 [facility] Bilirubin, totalOrdered By: Lalito Zamora on 10-31-2024 Bilirubin [Mass/Vol] 0.50 mg/dL 0.20-1.00 [facility] Comment on above: For patients on eltr ombopag therapy, use of Dimension [place] TBIL is not recommended. High density lipoprotein (HD L) measurementOrdered By: Lalito Zamora on 10-31-2024 Cholesterol in HDL [Mass/Vol] 51 mg/dL >40 [facility] Comment on above: The drugs N-Acetylcy steine and Metamizole may falsely depress this assay. Reference Range HDL <40 mg/dL Low HDL Cholesterol HDL >or= 60 mg/dL High HDL Cholesterol Laboratory - Chemistry and C hemistry - challengeOrdered By: Lalito Zamora on 10-31-2024 AST [Catalytic activity/Vol] 30 U/L 15-37 [facility] Lipid Profileon 10-31-2024 Cholesterol [Mass/Vol] 195 mg/dL Normal [address] [facility] Comment on above: Result Comment: <200 mg/dL Desirable 200-240 mg/dL Borderline >240 mg/dL High Risk Performed By: #### M 100.651, L300.4310, L500.2500, L501.1400, L100.0100, BTSPAT, L3400.0100, L300.3900, L501.9985 #### [facility] [address] [place], [address] Cholesterol in HDL [Mass/Vol] 51 mg/dL Normal [facility] Comment on above: Result Comment: The drugs N-Acetylcysteine and Metamizole may falsely depress this assay. Reference Range HDL <40 mg/dL Low HDL Cholesterol HDL >or= 60 mg/dL High HDL Cholesterol Performed By: #### M 100.651, L300.4310, L500.2500, L501.1400, L100.0100, BTSPAT, L3400.0100, L300.3900, L501.9985 #### [facility] [address] [place], [address] Cholesterol in LDL [Mass/Vol] 112 mg/dL Normal 0-130 [facility] Comment on above: Performed By: #### M 100.651, L300.4310, L500.2500, L501.1400, L100.0100, BTSPAT, L3400.0100, L300.3900, L501.9985 #### [facility] [address] [place], [address] Cholesterol in VLDL [Mass/Vol] 32 mg/dL Normal 5-40 [facility] Comment on above: Performed By: #### M 100.651, L300.4310, L500.2500, L501.1400, L100.0100, BTSPAT, L3400.0100, L300.3900, L501.9985 #### [facility] [address] [place], [address] Triglyceride [Mass/Vol] 162 mg/dL Normal [facility] Comment on above: Result Comment: The drugs N-Acetylcysteine and Metamizole may falsely depress this assay. Serum Triglycerides Reference Interval Normal <150 mg/dL Borderline high 150 - 199 mg/dL High 200 - 499 mg/dL Very High > or = 500 mg/dL Performed By: #### M 100.651, L300.4310, L500.2500, L501.1400, L100.0100, BTSPAT, L3400.0100, L300.3900, L501.9985 #### [facility] [address] [place], [place], [id number] Liver Profileon 10-31-2024 Albumin [Mass/Vol] 4.1 g/dL Normal 3.2-5.0 [facility] Comment on above: Performed By: #### M 100.651, L300.4310, L500.2500, L501.1400, L100.0100, BTSPAT, L3400.0100, L300.3900, L501.9985 #### [facility] [address] [place], [place], [id number] ALK P 90 U/L Normal 45-117 [facility] Comment on above: Performed By: #### M 100.651, L300.4310, L500.2500, L501.1400, L100.0100, BTSPAT, L3400.0100, L300.3900, L501.9985 #### [facility] [address] [place], [address] ALT [Catalytic activity/Vol] 48 U/L Normal 16-61 [facility] Comment on above: Performed By: #### M 100.651, L300.4310, L500.2500, L501.1400, L100.0100, BTSPAT, L3400.0100, L300.3900, L501.9985 #### [facility] [address] [place], [address] AST [Catalytic activity/Vol] 30 U/L Normal 15-37 [facility] Comment on above: Performed By: #### M 100.651, L300.4310, L500.2500, L501.1400, L100.0100, BTSPAT, L3400.0100, L300.3900, L501.9985 #### [facility] [address] [place], [address] Bilirubin [Mass/Vol] 0.50 mg/dL Normal 0.20-1.00 [facility] Comment on above: Result Comment: For patients on eltrombopag therapy, use of Dimension [place] TBIL is not recommended. Performed By: #### M 100.651, L300.4310, L500.2500, L501.1400, L100.0100, BTSPAT, L3400.0100, L300.3900, L501.9985 #### [facility] [address] [place], [address] Bilirubin.direct [Mass/Vol] 0.13 mg/dL Normal 0.00-0.30 [facility] Comment on above: Performed By: #### M 100.651, L300.4310, L500.2500, L501.1400, L100.0100, BTSPAT, L3400.0100, L300.3900, L501.9985 #### [facility] [address] [place], [address] Globulin (S) [Mass/Vol] 3.5 g/dL Normal 2.2-4.2 [facility] Comment on above: Performed By: #### M 100.651, L300.4310, L500.2500, L501.1400, L100.0100, BTSPAT, L3400.0100, L300.3900, L501.9985 #### [facility] [address] [place], [address] T PROT 7.6 g/dL Normal 6.4-8.2 [facility] Comment on above: Performed By: #### M 100.651, L300.4310, L500.2500, L501.1400, L100.0100, BTSPAT, L3400.0100, L300.3900, L501.9985 #### [facility] [address] [place], [address] Low density lipoprotein (LDL ) cholesterol measurementOrdered By: Lalito Zamora on 10-31-2024 Cholesterol in LDL [Mass/Vol] 112 mg/dL 0-130 [facility] Orthopedic Visit Reporton Orthopedic Visit Report [facility] [address] [place] [address] [address] [place] [address] OFFICE VISIT Date of Service: 10/31/24 MR#: [id number] Acct: [id number] Name: LAURA STEPHENS Beatriz Rep #: [id number] : 1970 Provider: Dr. Neville pina DO Age/Sex: 54/M Location: [facility] [place] Status: Signed Intake Vital Signs 09/29/24 16:56 [...] pain Essential hypertension Atherosclerotic heart disease of [place] coronary artery without angina pectoris Multi-vessel coronary [...] by me, Dr. Neville Mccall, DO 10/31/24 08. Part of today???s visit was documented by , acting as scribe. LAURA STEPHENS is a 54 year old M with medical comorbidities significant for but not limited to gout, myalgia, anxiety depression, non-ST elevation VT, unstable angina, GI bleed, borderline type 2 [...] hip flexion (more content not included)... Normal [facility] Serum globulin measurementOr dered By: Lalito Zamora on 10-31-2024 Globulin (S) [Mass/Vol] 3.5 g/dL 2.2-4.2 [facility] Serum or plasma alanine souza otransferase (ALT) measurementOrdered By: Lalito Zamora on 10-31-2024 ALT [Catalytic activity/Vol] 48 U/L 16-61 [facility] Serum or plasma albumin jose urement (mass/volume)Ordered By: Lalito Zamora on 10-31-2024 Albumin [Mass/Vol] 4.1 g/dL 3.2-5.0 [facility] Serum or plasma alkaline sumanth sphatase measurementOrdered By: Lalito Zamora on 10-31-2024 ALP [Catalytic activity/Vol] 90 U/L 45-117 [facility] Serum or plasma cholesterol measurement (mass/volume)Ordered By: Lalito Zamora on 10-31-2024 Cholesterol [Mass/Vol] 195 mg/dL <[address] [facility] Comment on above: <200 mg/dL Desirable 200-240 mg/dL Borderline >240 mg/dL High Risk Total proteinOrdered By: Sg Zamora on 10-31-2024 Protein [Mass/Vol] 7.6 g/dL 6.4-8.2 [facility] Triglycerides measurementOrd ered By: Lalito Zamora on 10-31-2024 Triglyceride [Mass/Vol] 162 mg/dL <199 [facility] Comment on above: The drugs N-Acetylcy steine and Metamizole may falsely depress this assay.Serum Triglycerides Reference Interval Normal <150 mg/dL Borderline high 150 - 199 mg/dL High 200 - 499 mg/dL Very High > or = 500 mg/dL Very low density lipoprotein (VLDL) cholesterol measurementOrdered By: Lalito Zamora on 10-31-2024 VLDL Cholesterol 32 mg/dL 5-40 [facility] HIP, UNI W/ Pelvis 2-3 Views on 10-20-2024 HIP, UNI W/ Pelvis 2-3 Views [facility] Imaging Services [address] [place] [address] HIP, UNI W/ Pelvis 2-3 Views MR#: [id number] Acct: [id number] Name: LAURA STEPHENS Rep #: [id number] : 1970 M 54 From: Forrest Estevez MD PCP: Dr. Svitlana Becerril MD Status: REG CLI Study: HIP, UNI W/ Pelvis 2-3 Views Date of Exam: 04/08 Exam# [id number] Ordering Dr: Svitlana Becerril MD [id number] STUDY: X-RAY - PELVIS AND RIGHT HIP [...] 15:26 EST Reading Location ID and State: [address] [place] [address] , Service support , CC: Dr. Svitlana Becerril MD Coagulating Operator: Signed Normal [facility] C-REACTIVE PROTEINon 024 CRP [Mass/Vol] 25.8 mg/L High <5.0 [facility] Comment on above: Performed By: #### L AB149, LAB17 #### Child Care Centre Director: RUTH MATA ([phone]) [facility] [address] [place] [address] CBC WITH AUTO DIFFERENTIALon 09-30-2024 Basophils (Bld) [#/Vol] 0.1 10*3/uL Normal 0.0-0.2 [facility] Comment on above: Performed By: #### L [id number], EFE235 #### Child Care Centre Director: RUTH MATA ([phone]) [facility] [address] [place] [address] Basophils/100 WBC (Bld) 0.9 % Normal 0.0-2.0 [facility] Comment on above: Performed By: #### L [id number], AJM600 #### Child Care Centre Director: RUTH MATA ([id number]) [facility] [address] [place] [address] Eosinophils (Bld) [#/Vol] 0.2 10*3/uL Normal 0.0-0.5 [facility] Comment on above: Performed By: #### L SV5238, NQZ361 #### Child Care Centre Director: RUTH MATA ([phone]) [facility] [address] [place] [address] Eosinophils/100 WBC (Bld) 2.3 % Normal 0.0-6.0 [facility] Comment on above: Performed By: #### Loyda WQ0294, CQA952 #### Child Care [facility] Director: RUTH MATA ([phone]) [facility] [address] [place] [address] Erythrocyte distribution width (RBC) [Ratio] 13.7 % Normal 11.5-15.0 [facility] Comment on above: Performed By: #### L ME9454, ARX452 #### Child Care [facility] Director: RUTH MATA ([phone]) [facility] [address] [place] [address] Hematocrit (Bld) [Volume fraction] 39.3 % Low 40.0-52.0 [facility] Comment on above: Performed By: #### L CQ6730, GUH224 #### Child Care Centre Director: RUTH MATA ([id number]) [facility]) [address] [place] [address] Hemoglobin (Bld) [Mass/Vol] 13.1 g/dL Normal 13.0-18.0 [facility] Comment on above: Performed By: #### L GP8347, CMI761 #### [facility] Care [facility] Director: RUTH MATA ([id number]) [facility] [address] [place] [address] IMMATURE GRANS % 0.5 % Normal 0.0-2.0 [facility] Comment on above: Performed By: #### Loyda [id number], CGV322 #### Child Care Centre Director: RUTH MATA ([phone]) [facility] [address] [place] [address] IMMATURE GRANS ABSOLUTE 0.0 10*3/uL Normal <0.1 [facility] Comment on above: Performed By: #### Loyda LITTLE, [id number] #### Child Care Centre Director: RUTH MATA ([id number]) [facility]) [address] [place] [address] Lymphocytes (Bld) [#/Vol] 3.1 10*3/uL Normal 1.0-4.3 [facility] Comment on above: Performed By: #### Loyda LITTLE, XEQ070 #### [facility] Care [facility] Director: RUTH MATA ([phone]) [facility] [address] [place] [address] Lymphocytes/100 WBC (Bld) 36.8 % Normal 15.0-45.0 [facility] Comment on above: Performed By: #### Loyda IU8344, XJL939 #### Child Care Centre Director: RUTH MATA ([phone]) [facility] [address] [place] [address] MCH (RBC) [Entitic mass] 28.9 pg Normal 26.0-34.0 [facility] Comment on above: Performed By: #### L RG1714, EVE271 #### Child Care Centre Director: RUTH MATA ([id number]) [facility]) [address] [place] [address] MCHC 33.3 % Normal 30.5-36.0 [facility] Comment on above: Performed By: #### Loyda HJ0413, LWO561 #### Child Care Centre Director: RUTH MATA ([id number]) [facility] [address] [place] [address] MCV (RBC) [Entitic vol] 86.8 fL Normal 77.0-99.0 [facility] Comment on above: Performed By: #### L SZ3299, NSY794 #### Child Care Centre Director: RUTH MATA ([id number]) [facility]) [address] [place] [address] [place] Monocytes (Bld) [#/Vol] 0.9 10*3/uL Normal 0.0-0.9 [facility] Comment on above: Performed By: #### L XW7252, LGH440 #### Child Care Centre Director: RUTH MATA ([phone]) [facility] [address] [place] [address] Monocytes/100 WBC (Bld) 11.2 % Normal 5.0-13.0 [facility] Comment on above: Performed By: #### Loyda YN2614, SZX140 #### Child Care Centre Director: RUTH MATA ([phone]) [facility] [address] [place] [address] [place] NEUTROPHILS ABSOLUTE 4.1 10*3/uL Normal 1.8-7.5 [facility] Comment on above: Performed By: #### L XD8354, NWM887 #### Child Care Centre Director: RUTH MATA ([id number]) [facility] [address] [place] [address] [place] Neutrophils/100 WBC (Bld) 48.3 % Normal 38.0-82.0 [facility] Comment on above: Performed By: #### L AY8253, YHS126 #### Child Care Centre Director: RUTH MATA ([id number]) [facility] [address] [place] [address] [place] NRBC 0.0 /100 WBCs Normal 0.0-2.0 [facility] Comment on above: Performed By: #### Loyda ME4621, EMP483 #### Child Care Centre Director: RUTH MATA ([id number]) [facility] [address] [place] [address] Platelet mean volume (Bld) [Entitic vol] 10.1 fL Normal 9.0-12.7 [facility] Comment on above: Performed By: #### Loyda LO1273, TIG042 #### Child Care Centre Director: RUTH MATA ([id number]) [facility] [address] [place] [address] Platelets (Bld) [#/Vol] 310 10*3/uL Normal 140-440 [facility] Comment on above: Performed By: #### Loyda GH9961, GQG808 #### Child Care Centre Director: RUTH MATA ([phone]) [facility] [address] [place] [address] RBC (Bld) [#/Vol] 4.53 10*6/uL Normal 4.40-5.90 [facility] Comment on above: Performed By: #### Loyda LITTLE, LQC871 #### Child Care Centre Director: RUTH MATA ([phone]) [facility] [address] [place] [address] WBC (Bld) [#/Vol] 8.4 10*3/uL Normal 3.6-10.7 [facility] Comment on above: Performed By: #### Loyda FC4762, LJP897 #### Child Care Centre Director: RUTH MATA ([id number]) [facility] [address] [place] [address] COMPREHENSIVE METABOLIC PANE Surendra 09-30-2024 Albumin [Mass/Vol] 3.7 g/dL Normal 3.5-5.0 [facility] Comment on above: Performed By: #### L AB149, LAB17 #### Child Care Centre Director: RUTH MATA ([id number]) [facility]) [address] [place] [address] ALP [Catalytic activity/Vol] 116 U/L Normal 40-150 [facility] Comment on above: Performed By: #### L AB149, LAB17 #### Child Care Centre Director: RUTH [id number]) [facility] ([facility]) [address] [place] [address] [place] ALT [Catalytic activity/Vol] 30 U/L Normal <40 [facility] Comment on above: Performed By: #### L AB149, LAB17 #### Child Care Centre Director: RUTH MATA ([id number]) [facility] [address] [place] [address] [place] Anion gap [Moles/Vol] 9 mmol/L Normal 3-13 [facility] Comment on above: Performed By: #### L AB149, LAB17 #### Child Care Centre Director: RUTH MATA ([id number]) [facility] [address] [place] [address] [place] AST [Catalytic activity/Vol] 25 U/L Normal <34 [facility] Comment on above: Performed By: #### L AB149, LAB17 #### Child Care Centre Director: RUTH MATA ([id number]) [facility] [address] [place] [address] [place] Bilirubin [Mass/Vol] 0.3 mg/dL Normal <1.2 [facility] Comment on above: Performed By: #### L AB149, LAB17 #### Child Care Centre Director: RUTH MATA ([phone]) [facility] [address] [place] [address] [place] Calcium [Mass/Vol] 8.8 mg/dL Normal 8.4-10.2 [facility] Comment on above: Performed By: #### L AB149, LAB17 #### Child Care Centre Director: RUTH MATA ([id number]) [facility] [address] [place] [address] [place] Chloride [Moles/Vol] 108 mmol/L High 98-107 [facility] Comment on above: Performed By: #### L AB149, LAB17 #### Child Care Centre Director: RUTH MATA ([phone]) [facility] [address] [place] [address] [place] CO2 [Moles/Vol] 24 mmol/L Normal 22-29 [facility] Comment on above: Performed By: #### L AB149, LAB17 #### Child Care Centre Director: RUTH MATA ([id number]) [facility]) [address] [place] [address] Creatinine [Mass/Vol] 1.12 mg/dL Normal 0.72-1.25 [facility] Comment on above: Performed By: #### L AB149, LAB17 #### Child Care Centre Director: RUTH MATA ([phone]) [facility] [address] [place] [address] [place] GLOMERULAR FILTRATION RATE ML/MIN/1.73 SQ M.PREDICTED 79.0 mL/min/1.73m*2 Normal >60.0 [facility] Comment on above: Result Comment: Calc ulation based on the Chronic Kidney Disease Epidemiology Collaboration (CKD-EPI) equation refit without adjustment for race Performed By: #### L [place], LAB17 #### Child Care Centre Director: RUTH MATA ([id number]) [facility] [address] [place] [address] Glucose [Mass/Vol] 146 mg/dL High 74-100 [facility] Comment on above: Performed By: #### L [place]AC[place], LAB17 #### Child Care Centre Director: RUTH MATA ([phone]) [facility]) [address] [place] [address] Potassium [Moles/Vol] 3.5 mmol/L Normal 3.5-5.1 [facility] Comment on above: Result Comment: [facility] potassium values may be up to 0.5 mmol/L lower than serum values. Performed By: #### L AB149, LAB17 #### Child Care Centre Director: RUTH MATA ([phone]) [facility]) [address] [place] [address] Protein [Mass/Vol] 7.1 g/dL Normal 6.4-8.3 [facility] Comment on above: Performed By: #### L AB149, LAB17 #### Child Care Centre Director: RUTH MATA ([phone]) [facility] [address] [place] [address] Sodium [Moles/Vol] 141 mmol/L Normal 136-145 [facility] Comment on above: Performed By: #### L AB149, LAB17 #### Child Care Centre Director: RUTH MATA ([phone]) [facility] [address] [place] [address] Urea nitrogen [Mass/Vol] 18 mg/dL Normal 9-23 [facility] Comment on above: Performed By: #### L AB149, LAB17 #### Child Care Centre Director: RUTH MATA ([id number]) [facility]) [address] [place] [address] Consulton 09-30-2024 Consult Ortho Consult Patient: Laura Stephens Date of : 1970 Acct: [id number] PCP: DENYS CUELLO Date of Admission: 09/30/2024 Date of Service: Pt seen/examined on 09/30/2024 Chief Complaint: Left elbow pain History Of Present Illness: This is a 54 y.o. tqau-gpin-vyjduryp male who presents with a 5-day history [...] This prompted him to present to the [facility] ED. He denies other areas of pain/swelling [...] discuss suppressive medication. Past medical history of VT about 2 years ago. He is on aspirin daily. He denies diabetes, neuropathy. Denies kidney disease. Lives at home with his . 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 Denies pertinent orthopedic surgery history Patient ambulation status: no difficulty Antiplatelets/Antico agulation includes: ASA Hx from chart and/or Pt. Past Medical History: No past medical history on file. Past Surgical History: No past surgical history on file. Home Medications: Prior to Admission medications Not on File Current Hospital Medications: No current facility-administere d medications for this encounter. No current outpatient [...] Mild erythem (more content not included)... Normal [facility] ED Nursing Noteon 09-30-2024 ED Nursing Note Ortho at bedside. Normal [facility] ED Nursing Note Ortho at bedside. Normal [facility] SEDIMENTATION RATE, AUTOMATE Don 09-30-2024 SEDIMENTATION RATE, ERYTHROCYTE 14 mm/hr High 0-10 [facility] Comment on above: Performed By: #### L [id number], WIS466 #### Child Care Centre Director: RUTH MATA ([phone]) [facility] [address] [place] [address] CNOVon 09-29-2024 CNOV Office Visit (UCWSTR) LAURA STEPHENS ([id number]) 1970 M Date Time Provider Department 09/29/24 4:45 PM [facility] During your visit today, we recorded the following information about you: Temperature Pulse Respiration Blood pressure 97.9 degrees 97/minute 16/minute 124/82 Weight 105.5 kg Soto PennyJAVON amaya 09/29/2024 4:53 PM Signed This note was [...] history is provided by the patient. No foreign language teacher was used. Musculoskeletal Problem This is a [...] or rales. (more content not included)... Normal [facility] ED Provider Noteon ED Provider Note Emergency Department Encounter [facility] Patient: Laura Stephens : 1970 Date of Evaluation: 09/29/2024 ED Supervising Physician: Matt Cazares MD HPI: I independently examined and evaluated Laura Stehpens. In brief, Laura Stephens is a 54 [...] Solutions Matt Cazares MD 09/30/24 0815 Normal [facility] ED Provider Note Emergency Department Encounter [facility] Patient: Laura Stephens : 1970 Date of Evaluation: 09/29/2024 ED MDADY Provider: Odilon Medel PA-C EDcare was supervised by Dr. Cazares who independently examined and evaluated the patient. Please see their attestation note for further details. Chief Complaint Chief Complaint Patient presents with Joint Swelling Pt walked in through triage c/o left elbow swelling and redness and pain. Pt was sent by [facility] for possible septic work-up. Pt states fever of 101.2 four days ago but denies fever today. Pt A&OX4. [place] I was wearing a N95, Surgical mask [...] file. Social History Socioeconomic History Marital status: Medications/Allergie s Previous Medications No medications on file No [...] Department Physician in the absence of a juice weigher. see their note for interpretation of EKG. [...] x-ray left (more content not included)... Normal [facility] Emergency Department Summary on 09-29-2024 Emergency Department Summary [facility] Medical Records Department [address] [place] [address] Emergency Department Summary 09/29/24 MR#: [id number] Acct: [id number] Name: LAURA STEPHENS Rep #: [id number] : 1970 54 From: Gianni Hernandez DO [...] in the left elbow, left elbow is swollen/erythematous /warm, compartments soft, good capillary refill, radial/ulnar pulses plus 2 out of 4 Neuro: Alert, oriented, grossly intact, sensation intact Psych: Cooperative, appropriate mood and affect [facility] Medical History Gout Wears glasses History of steroid therapy High cholesterol History of heart attack Former smoker History of echocardiogram Cardiology follow-up encounter BPH (benign prostatic hyperplasia) GI bleed Borderline type 2 diabetes mellitus Bilateral shoulder pain Essential hypertension 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 Normal [facility] Cardiology Visit Reporton Cardiology Visit Report [facility] [address] [place] [address] OFFICE VISIT Date of Service: 07/24/24 MR#: [id number] Acct: [id number] Name: LAURA STEPHENS Rep #: [id number] : 1970 Provider: Dr. Lalito meneses MD Age/Sex: 54/M Location: [facility] Status: Signed HPI [facility] History of Present Illness Details: Patient is a 53-year-old white male comes in for cardiovascular monitoring. Patient underwent coronary bypass graft surgery October 2022 receiving a SNOWDEN to the LAD and a vein graft to the OM1 branch of the circumflex at [facility]. 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 Normal [facility] CBC W Auto Differential pane l (Bld)on 07-15-2024 Basophils (Bld) [#/Vol] 0.06 10*3/uL [facility] Basophils/100 WBC (Bld) 0.6 % C [facility] Differential cell count method Nom (Bld) Auto [facility] Eosinophils (Bld) [#/Vol] 0.14 10*3/uL [facility] Eosinophils/100 WBC (Bld) 1.4 % [facility] Erythrocyte distribution width (RBC) [Ratio] 13.7 % 11.5 - 15.0 % [facility] Hematocrit (Bld) [Volume fraction] 43.4 % 39.0 - 51.0 % [facility] Hemoglobin (Bld) [Mass/Vol] 14.6 g/dL 13.0 - 17.0 g/dL [facility] Immature granulocytes (Bld) [#/Vol] 0.04 10*3/uL [facility] Immature granulocytes/100 WBC (Bld) 0.4 % [facility] Interpretation and review of laboratory results Abnormal [facility] Lymphocytes (Bld) [#/Vol] 3.32 10*3/uL [facility] Lymphocytes/100 WBC (Bld) 33.7 % [facility] MCH (RBC) [Entitic mass] 28.9 pg 26. 0 - 34.0 pg [facility] MCHC (RBC) [Mass/Vol] 33.6 g/dL 30.5 - 36.0 g/dL [facility] MCV (RBC) [Entitic vol] 85.9 fL 80.0 - 100.0 fL [facility] Monocytes (Bld) [#/Vol] 0.87 10*3/uL High [facility] Monocytes/100 WBC (Bld) 8.8 % C [facility] Neutrophils (Bld) [#/Vol] 5.41 10*3/uL [facility] Neutrophils/100 WBC (Bld) 55.1 % [facility] Nucleated RBC (Bld) [#/Vol] [facility] Nucleated RBC/100 WBC (Bld) [Ratio] 0.0 % /100 WBC [facility] Platelet mean volume (Bld) [Entitic vol] 10.3 fL 9.0 - 12.7 fL [facility] Platelets (Bld) [#/Vol] 274 10*3/uL [facility] RBC (Bld) [#/Vol] 5.05 10*6/uL 4.20 - 6.0 0 m/uL [facility] WBC (Bld) [#/Vol] 9.84 10*3/uL [facility] Basophils (Bld) [#/Vol] 0.06 10*3/uL Normal <0.11 [facility] Comment on above: Order Comment: Speci men Type: BLOOD SPECIMEN Ordering Facility: [facility] Address: [address] [place] [address] Performed By: #### 5 7021-8 #### [facility] CLIA [id number] [address] [place] [address] [place] Basophils/100 WBC (Bld) 0.6 % Normal C [facility] Comment on above: Order Comment: Speci men Type: BLOOD SPECIMEN Ordering Facility: [facility] Address: [address] [place] [address] Performed By: #### 5 7021-8 #### [facility] CLIA [id number] [address] [place] [address] [place] Differential cell count method Nom (Bld) Auto Normal [facility] Comment on above: Order Comment: Speci men Type: BLOOD SPECIMEN Ordering Facility: [facility] Address: [address] [place] [address] Performed By: #### 5 7021-8 #### [facility] CLIA [id number] [address] [place] [address] [place] Eosinophils (Bld) [#/Vol] 0.14 10*3/uL Normal <0.46 [facility] Comment on above: Order Comment: Speci men Type: BLOOD SPECIMEN Ordering Facility: [facility] Address: [address] [place] [address] Performed By: #### 5 7021-8 #### [facility] CLIA [id number] [address] [place] [address] [place] Eosinophils/100 WBC (Bld) 1.4 % Normal [facility] Comment on above: Order Comment: Speci men Type: BLOOD SPECIMEN Ordering Facility: [facility] Address: [address] [place] [address] Performed By: #### 5 7021-8 #### [facility] CLIA [id number] [address] [place] [address] [place] Erythrocyte distribution width (RBC) [Ratio] 13.7 % Normal 11.5-15.0 [facility] Comment on above: Order Comment: Speci men Type: BLOOD SPECIMEN Ordering Facility: [facility] Address: [address] [place] [address] Performed By: #### 5 7021-8 #### [facility] [id number] [address] [place] [address] [place] Hematocrit (Bld) [Volume fraction] 43.4 % Normal 39.0-51.0 [facility] Comment on above: Order Comment: Speci men Type: BLOOD SPECIMEN Ordering Facility: [facility] Address: [address] [place] [address] Performed By: #### 5 7021-8 #### [facility] [id number] [address] [place] [address] [place] Hemoglobin (Bld) [Mass/Vol] 14.6 g/dL Normal 13.0-17.0 [facility] Comment on above: Order Comment: Speci men Type: BLOOD SPECIMEN Ordering Facility: [facility] Address: [address] [place] [address] Performed By: #### 5 7021-8 #### [facility] CLIA [id number] [address] [place] [address] [place] Immature granulocytes (Bld) [#/Vol] 0.04 10*3/uL Normal <0.10 [facility] Comment on above: Order Comment: Speci men Type: BLOOD SPECIMEN Ordering Facility: [facility] Address: [address] [place] [address] Performed By: #### 5 7021-8 #### [facility] CLIA [id number] [address] [place] [address] [place] Immature granulocytes/100 WBC (Bld) 0.4 % Normal [facility] [facility] Comment on above: Order Comment: Speci men Type: BLOOD SPECIMEN Ordering Facility: [facility] Address: [address] [place] [address] Performed By: #### 5 7021-8 #### [facility] CLIA [id number] [address] [place] [address] [place] Lymphocytes (Bld) [#/Vol] 3.32 10*3/uL Normal 1.00-4.00 [facility] Comment on above: Order Comment: Speci men Type: BLOOD SPECIMEN Ordering Facility: [facility] Address: [address] [place] [address] Performed By: #### 5 7021-8 #### [facility] CLIA [id number] [address] [place] [address] [place] Lymphocytes/100 WBC (Bld) 33.7 % Normal [facility] Comment on above: Order Comment: Speci men Type: BLOOD SPECIMEN Ordering Facility: [facility] Address: [address] [place] [address] Performed By: #### 5 7021-8 #### [facility] [id number] [address] [place] [address] [place] MCH (RBC) [Entitic mass] 28.9 pg Normal 26.0-34.0 [facility] Comment on above: Order Comment: Speci men Type: BLOOD SPECIMEN Ordering Facility: [facility] Address: [address] [place] [address] Performed By: #### 5 7021-8 #### [facility] CLIA [id number] [address] [place] [address] [place] MCHC (RBC) [Mass/Vol] 33.6 g/dL Normal 30.5-36.0 [facility] Comment on above: Order Comment: Speci men Type: BLOOD SPECIMEN Ordering Facility: [facility] Address: [address] [place] [address] Performed By: #### 5 7021-8 #### [facility] CLIA [id number] [address] [place] [address] [place] MCV (RBC) [Entitic vol] 85.9 fL Normal 80.0-100.0 C [facility] Comment on above: Order Comment: Speci men Type: BLOOD SPECIMEN Ordering Facility: [facility] Address: [address] [place] [address] Performed By: #### 5 7021-8 #### [facility] CLIA [id number] [address] [place] [address] [place] Monocytes (Bld) [#/Vol] 0.87 10*3/uL High <0.87 [facility] Comment on above: Order Comment: Speci men Type: BLOOD SPECIMEN Ordering Facility: [facility] Address: [address] [place] [address] Performed By: #### 5 7021-8 #### [facility] CLIA [id number] [address] [place] [address] [place] Monocytes/100 WBC (Bld) 8.8 % Normal C [facility] Comment on above: Order Comment: Speci men Type: BLOOD SPECIMEN Ordering Facility: [facility] Address: [address] [place], [place] [address] Performed By: #### 5 7021-8 #### [facility] CLIA [id number] [address] [place], [place] [address] [place] Neutrophils (Bld) [#/Vol] 5.41 10*3/uL Normal 1.45-7.50 [facility] Comment on above: Order Comment: Speci men Type: BLOOD SPECIMEN Ordering Facility: [facility] Address: [address] [place] [address] Performed By: #### 5 7021-8 #### [facility] CLIA [id number] [address] [place] [address] [place] Neutrophils/100 WBC (Bld) 55.1 % Normal [facility] Comment on above: Order Comment: Speci men Type: BLOOD SPECIMEN Ordering Facility: [facility] Address: [address] [place] [address] Performed By: #### 5 7021-8 #### [facility] CLIA [id number] [address] [place] [address] [place] Nucleated RBC (Bld) [#/Vol] 10*3/uL Normal <0.01 [facility] Comment on above: Order Comment: Speci men Type: BLOOD SPECIMEN Ordering Facility: [facility] Address: [address] [place] [address] Performed By: #### 5 7021-8 #### [facility] CLIA [id number] [address] [place] [address] [place] Nucleated RBC/100 WBC (Bld) [Ratio] 0.0 /100 WBC Normal [facility] Comment on above: Order Comment: Speci men Type: BLOOD SPECIMEN Ordering Facility: [facility] Address: [address] [place] [address] Performed By: #### 5 7021-8 #### [facility] CLIA [id number] [address] [place] [address] [place] Platelet mean volume (Bld) [Entitic vol] 10.3 fL Normal 9.0-12.7 [facility] Comment on above: Order Comment: Speci men Type: BLOOD SPECIMEN Ordering Facility: [facility] Address: [address] [place], [place] [address] Performed By: #### 5 7021-8 #### [facility] CLIA [id number] [address] [place] [address] [place] Platelets (Bld) [#/Vol] 274 10*3/uL Normal 150-400 [facility] Comment on above: Order Comment: Speci men Type: BLOOD SPECIMEN Ordering Facility: [facility] Address: [address] [place], [place] [address] Performed By: #### 5 7021-8 #### [facility] CLIA [id number] [address] [place] [address] [place] RBC (Bld) [#/Vol] 5.05 10*6/uL Normal 4.20-6.00 [facility] Comment on above: Order Comment: Speci men Type: BLOOD SPECIMEN Ordering Facility: [facility] Address: [address] [place], [place] [address] Performed By: #### 5 7021-8 #### [facility] CLIA [id number] [address] [place] [address] [place] WBC (Bld) [#/Vol] 9.84 10*3/uL Normal 3.70-11.00 [facility] Comment on above: Order Comment: Speci men Type: BLOOD SPECIMEN Ordering Facility: [facility] Address: [address] [place], [place] [address] Performed By: #### 5 7021-8 #### [facility] CLIA [id number] [address] [place] [address] [place] CNOVon 07-15-2024 CNOV Office Visit ([facility]WSTR) LAURA STEPHENS ([id number]) 1970 M Date Time Provider Department 07/15/24 1:30 PM PENNY SOTO [facility] During your visit today, we recorded the following information about you: Temperature Pulse Respiration Blood pressure 98 degrees 82/minute 16/minute 112/78 Weight 101.9 kg Penny Soto APRN.CNP 07/15/2024 2:32 PM Signed This note was created using Savorriter. Subjective Laura Stephens is a 54 year [...] history is provided by the patient. No foreign language teacher was used. Pain (foot) Pain location: left [...] Negative for adenopathy. Does not bruise/bleed easily. Psychiatric/Behavior al: Negative for agitation and behavioral problems. Objective [...] Rhythm: Normal (more content not included)... Normal [facility] 07-15-2024 [facility] Telephone ([facility]) LAURA STEPHENS ([id number]) 1970 M Date Time Provider Department 07/15/24 PENNY SOTO [facility] During your visit today, we [...] Status:Closed by PENNY SOTO on 07/15/24 Normal [facility] Comprehensive metabolic 2000 panelon 07-15-2024 Albumin [Mass/Vol] 4.7 g/dL 3.9 - 4.9 g/dL [facility] ALP [Catalytic activity/Vol] 112 U/L 38 - 113 U/L [facility] ALT [Catalytic activity/Vol] 21 U/L 10 - 54 U/L [facility] Anion gap [Moles/Vol] 13 mmol/L 8 - 15 mmol/L [facility] AST [Catalytic activity/Vol] 19 U/L 14 - 40 U/L [facility] Bilirubin [Mass/Vol] 0.4 mg/dL 0.2 - 1 .3 mg/dL [facility] Calcium [Mass/Vol] 9.7 mg/dL 8.5 - 10. 2 mg/dL [facility] Chloride [Moles/Vol] 104 mmol/L 98 - 10 7 mmol/L [facility] CO2 [Moles/Vol] 22 mmol/L 22 - 30 mmol/L [facility] Creatinine [Mass/Vol] 0.90 mg/dL 0.73 - 1.22 mg/dL [facility] GFR/1.73 sq M.predicted among non-blacks MDRD (S/P/Bld) [Vol rate/Area] 103 mL/min/{1.73_m2} - PINF [facility] Comment on above: Estimated Glomerular Filtration Rate [...] 112 mg/dL High 74 - 99 mg/dL [facility] Comment on above: The [place] Diabete s Association (ADA) provides guidance for [...] Standards of Medical Care in Diabetes 2016, [place] [employer]. Diabetes Care. 2016.39(Suppl 1). Potassium [Moles/Vol] 4.3 mmol/L 3.7 - 5.1 mmol/L [facility] Protein [Mass/Vol] 7.8 g/dL 6.3 - 8.0 g/dL [facility] Sodium [Moles/Vol] 139 mmol/L 136 - 144 mmol/L [facility] Urea nitrogen [Mass/Vol] 18 mg/dL 9 - 24 mg/d L [facility] Albumin [Mass/Vol] 4.7 g/dL Normal 3.9-4.9 [facility] Comment on above: Order Comment: Speci men Type: BLOOD SPECIMEN Ordering Facility: [facility] Address: [address] [place] [address] Performed By: #### 3 084-1, 49557-2 #### [facility] CLIA [id number] [address] [place] [address] [place] ALP [Catalytic activity/Vol] 112 U/L Normal 38-113 [facility] Comment on above: Order Comment: Speci men Type: BLOOD SPECIMEN Ordering Facility: [facility] Address: [address] [phone] Performed By: #### 3 084-1, 15820-9 #### [facility] CLIA [id number] [address] [place] [address] [place] ALT [Catalytic activity/Vol] 21 U/L Normal 10-54 [facility] Comment on above: Order Comment: Speci men Type: BLOOD SPECIMEN Ordering Facility: [facility] Address: [address] [place] [address] Performed By: #### 3 084-1, 44908-0 #### [facility] CLIA [id number] [address] [place] [address] [place] Anion gap [Moles/Vol] 13 mmol/L Normal 8-15 [facility] Comment on above: Order Comment: Speci men Type: BLOOD SPECIMEN Ordering Facility: [facility] Address: [address] [place] [address] Performed By: #### 3 084-1, 97727-4 #### [facility] CLIA [id number] [address] [place] [address] [place] AST [Catalytic activity/Vol] 19 U/L Normal 14-40 [facility] Comment on above: Order Comment: Speci men Type: BLOOD SPECIMEN Ordering Facility: [facility] Address: [address] [place] [address] Performed By: #### 3 084-1, 69151-3 #### [facility] CLIA [id number] [address] [place] [address] [place] Bilirubin [Mass/Vol] 0.4 mg/dL Normal 0.2-1.3 [facility] Comment on above: Order Comment: Speci men Type: BLOOD SPECIMEN Ordering Facility: [facility] Address: [address] [phone] Performed By: #### 3 084-1, 72222-6 #### [facility] CLIA [id number] [address] [place] [address] [place] Calcium [Mass/Vol] 9.7 mg/dL Normal 8.5-10.2 [facility] Comment on above: Order Comment: Speci men Type: BLOOD SPECIMEN Ordering Facility: [facility] Address: [address] [place], [place] [address] Performed By: #### 3 084-1, 49703-3 #### [facility] CLIA [id number] [address] [place] [address] [place] Chloride [Moles/Vol] 104 mmol/L Normal 98-107 [facility] Comment on above: Order Comment: Speci men Type: BLOOD SPECIMEN Ordering Facility: [facility] Address: [address] [place], [place] [address] Performed By: #### 3 084-1, 92380-8 #### [facility] CLIA [id number] [address] [place] [address] [place] CO2 [Moles/Vol] 22 mmol/L Normal 22-30 [facility] Comment on above: Order Comment: Speci men Type: BLOOD SPECIMEN Ordering Facility: [facility] Address: [facility] [address] Performed By: #### 3 084-1, 69530-0 #### [facility] CLIA [id number] [address] [place] [address] [place] Creatinine [Mass/Vol] 0.90 mg/dL Normal 0.73-1.22 [facility] Comment on above: Order Comment: Speci men Type: BLOOD SPECIMEN Ordering Facility: [facility] Address: [address] [place] [address] Performed By: #### 3 084-1, 70454-1 #### [facility] [id number] [address] [place] [address] [place] Creatinine and Glomerular filtration rate.predicted panel (S/P/Bld) 103 mL/min/1.73m??? Normal >=60 [facility] Comment on above: Order Comment: Ehsan arellano Type: BLOOD SPECIMEN Ordering Facility: [facility] Address: [address] [place] [address] Result Comment: Kaitlin mated Glomerular Filtration Rate [...] actual GFR. Performed By: #### 3 084-1, 16980-2 #### [facility] [id number] [address] [place] [address] [place] Glucose [Mass/Vol] 112 mg/dL High 74-99 [facility] Comment on above: Order Comment: Ehsan arellano Type: BLOOD SPECIMEN Ordering Facility: [facility] Address: [address] [place] [address] Result Comment: The [place] Diabetes Association (ADA) provides guidance for cutoff [...] Standards of Medical Care in Diabetes 2016, [place] [employer] Association. Diabetes Care. 2016.39(Suppl 1). Performed By: #### 3 084-1, 99330-4 #### [facility] [id number] [address] [place] [address] [place] Potassium [Moles/Vol] 4.3 mmol/L Normal 3.7-5.1 [facility] Comment on above: Order Comment: Speci men Type: BLOOD SPECIMEN Ordering Facility: [facility] Address: [address] [place], [place] [address] Performed By: #### 3 084-1, 46939-6 #### [facility] CLIA [id number] [address] [place] [address] [place] Protein [Mass/Vol] 7.8 g/dL Normal 6.3-8.0 [facility] Comment on above: Order Comment: Speci men Type: BLOOD SPECIMEN Ordering Facility: [facility] Address: [address] [place] [address] Performed By: #### 3 084-1, 84695-9 #### [facility] CLIA [id number] [address] [place] [address] [place] Sodium [Moles/Vol] 139 mmol/L Normal 136-144 [facility] Comment on above: Order Comment: Speci men Type: BLOOD SPECIMEN Ordering Facility: [facility] Address: [address] [place], [place] [address] Performed By: #### 3 084-1, 54502-5 #### [facility] CLIA [id number] [address] [place] [address] [place] Urea nitrogen [Mass/Vol] 18 mg/dL Normal 9-24 [facility] Comment on above: Order Comment: Speci men Type: BLOOD SPECIMEN Ordering Facility: [facility] Address: [address] [place] [address] Performed By: #### 3 084-1, 30583-2 #### [facility] CLIA [id number] [address] [place] [address] [place] No Panel InformationOrdered By: Natty Quinonez on 07-15-2024 Interpretation and review of laboratory results Abnormal [facility] URIC ACIDOrdered By: Natty moy on 07-15-2024 Urate [Mass/Vol] 10.3 mg/dL High 4.0 - 8.1 mg/dL [facility] Urate SerPl-mCncon Urate [Mass/Vol] 10.3 mg/dL High 4.0-8.1 Abi brito [facility] Comment on above: Order Comment: Speci men Type: BLOOD SPECIMEN Ordering Facility: [facility] Address: [address] [place] [address] Performed By: #### 3 084-1, 27266-9 #### [facility] CLIA [id number] [address] [place] [address] [place] XR FOOT 3V AP/LAT/OBL LTon 1 XR FOOT 3V AP/LAT/OBL LT * * *Final Repo rt* * * DATE OF EXAM: Jul 15 [...] radiographic abnormalities seen in the left foot. Coagulating Operator: PSCB Transcribe Date/Time: Jul 15 2024 2:12P Dictated by : MANOJ AGUILAR MD This examination was interpreted and the report reviewed and electronically signed by: MANOJ AGUILAR MD on Jul 15 2024 2:22PM EST [id number] Normal [facility] XR Foot - left AP and Latera l and obliqueon 07-15-2024 IMPRESSION: No acute radiographic abnormalities seen in the left foot. Coagulating Operator: SUMMER Transcribe Date/Time: Jul 15 2024 2:12P Dictated by : MANOJ AGUILAR MD This examination was interpreted and the report reviewed and electronically signed by: MANOJ AGUILAR MD on Jul 15 2024 2:22PM [facility] DIVISION OF RADIOLOGY * * *Final Report* [...] soft tissue swelling. DIVISION OF RADIOLOGY Provider, [facility] [place] - 07/15/2024 * * *Final Report* * [...] radiographic abnormalities seen in the left foot. Coagulating Operator: SUMMER Transcribe Date/Time: Jul 15 2024 2:12P Dictated by : MANOJ AGUILAR MD This examination was interpreted and the report reviewed and electronically signed by: MANOJ AGUILAR MD on Jul 15 2024 2:22PM [facility] Radiology Study observation (narrative) [facility] XR Foot - left AP and Latera l and obliqueOrdered By: Ccf Provider on 07-15-2024 [facility] Absolute lymphocyte countOrd ered By: Charla Dunn on 08-30-2023 Lymphocytes Auto (Unsp spec) [#/Vol] 2.90 10*3/uL 0.83-4.51 [facility] Basophil percentageOrdered B y: Charla Dunn on 08-30-2023 Basophils/100 WBC (Bld) 0.9 % 0-1 [facility] Chloride [Moles/Vol] 111 mmol/L 98-107 [facility] Eosinophils/100 WBC (Bld) 1.5 % 0-5 [facility] Glucose [Mass/Vol] 115 mg/dL 74-106 [facility] Comment on above: Fasting Glucose resu lt from 100 to 125 mg/dL suggests IMPAIRED HOMEOSTASIS per A.D.A. criteria. Neutrophils (Bld) [#/Vol] 4.2 10*3/uL 2.0-7.7 [facility] Neutrophils/100 WBC (Bld) 52.5 % 47-70 [facility] Potassium [Moles/Vol] 4.0 mmol/L 3.5-5.1 [facility] Sodium [Moles/Vol] 143 mmol/L 136-145 [facility] WBC (Bld) [#/Vol] 8.1 10*3/uL 4.4-11.0 [facility] Blood erythrocytes count (nu mber/volume)Ordered By: Charla Dunn on 08-30-2023 RBC (Bld) [#/Vol] 4.67 10*6/uL 4.6-6.2 [facility] Blood hemoglobin measurement (mass/volume)Ordered By: Charla Dunn on 08-30-2023 Hemoglobin (Bld) [Mass/Vol] 13.5 g/dL 13.0-16.5 [facility] Blood lymphocytes/100 leukoc ytesOrdered By: Charla Dunn on 08-30-2023 Lymphocytes/100 WBC (Bld) 35.9 % 19-41 [facility] Blood monocytes/100 leukocyt esOrdered By: Charla Dunn on 08-30-2023 Monocytes/100 WBC (Bld) 9.0 % 0-10 [facility] Blood platelet mean volumeOr dered By: Charla Dunn on 08-30-2023 Platelet mean volume (Bld) [Entitic vol] 10.2 fL 6.2-12.0 [facility] Determination of erythrocyte mean corpuscular volume (MCV)Ordered By: Charal Dunn on 08-30-2023 MCV (RBC) [Entitic vol] 89.1 fL 80-94 [facility] Hematocrit Auto (Bld) [Volum e fraction]Ordered By: Charla Dunn on 08-30-2023 Hematocrit (Bld) [Volume fraction] 41.6 % 40-54 [facility] - Chemistry and C hemistry - challengeOrdered By: Charla Dunn on 08-30-2023 CO2 [Moles/Vol] 28.0 mmol/L 21.0-32.0 [facility] Urea nitrogen/Creatinine [Mass ratio] 18.5 mg/mg 10-20 [facility] - Hematology and Cell countsOrdered By: Charla Dunn on 08-30-2023 Erythrocyte distribution width (RBC) [Entitic vol] 43.8 fL 35.1-43.9 [facility] Erythrocyte distribution width (RBC) [Ratio] 13.4 % 11.6-14.6 [facility] Immature granulocytes/100 WBC (Bld) 0.200 % 0.0-0.9 [facility] Comment on above: IG% - Immature Granu locytes (promyelocytes, myelocytes and metamyelocytes) > 1% indicates that a LEFT SHIFT is Present. MCH (RBC) [Entitic mass] 28.9 pg 27.0-32.0 [facility] Nucleated RBC/100 WBC (Bld) [Ratio] 0 % 0-5 [facility] MCHC Auto (RBC) [Mass/Vol]Or dered By: Charla Dunn on 08-30-2023 MCHC (RBC) [Mass/Vol] 32.5 g/dL 32-36 [facility] No Panel InformationOrdered By: Charla Dunn on 08-30-2023 Estimated GFR (MDRD) Amer 93 mL/min >60 [facility] Comment on above: GFR Calc Estimated GFR (MDRD) Non-Af Amer 77 mL/min >60 [facility] Comment on above: Non- GFR Calc Thyroid Stimulating Hormone (TSH) 1.20 uIU/mL 0.358-3.74 [facility] Platelets bldOrdered By: Uli Dunn on 08-30-2023 Platelets (Bld) [#/Vol] 245 10*3/uL 150-450 [facility] Serum or plasma calcitriol m easurement (mass/volume)Ordered By: Charla Dunn on 08-30-2023 1,25-dihydroxyvitamin D3 [Mass/Vol] 30.6 pg/mL 24.8-81.5 [facility] Comment on above: Performed at: [address] [id number] Director: Beth Huffman MD, Phone: [phone] Serum or plasma calcium jose urement (mass/volume)Ordered By: Charla Dunn on 08-30-2023 Calcium [Mass/Vol] 9.6 mg/dL 8.5-10.1 [facility] Serum or plasma creatinine m easurement (mass/volume)Ordered By: Charla Dunn on 08-30-2023 Creatinine [Mass/Vol] 1.08 mg/dL 0.70-1.30 [facility] Comment on above: The validity of the calculated GFR & GFRAA in patients over 70 years has not been determined. Clinical correlation is essential. Serum or plasma urea nitroge n measurement (mass/volume)Ordered By: Charla Dunn on 08-30-2023 Urea nitrogen [Mass/Vol] 20 mg/dL 7-18 [facility] Thin prep Papanicolaou smear with manual screeningOrdered By: Charla Dunn on 08-30-2023 Thin prep Papanicolaou smear with manual screening 4 5-15 [facility] XR ANKLE GENERAL 3V AP/LAT/O BL RIGHTon 05-01-2023 [facility] XR Ankle - right AP and Late ral and obliqueon 05-01-2023 IMPRESSION: No radiographic evidence of acute osseous abnormality Coagulating Operator: SUMMER Transcribe Date/Time: May 01 2023 1:20P Dictated by : PIERRE GOMES MD This examination was interpreted and the report reviewed and electronically signed by: PIERRE GOMES MD on May 01 2023 1:25PM [facility] DIVISION OF RADIOLOGY * * *Final Report* [...] Joint spaces preserved. DIVISION OF RADIOLOGY Provider, [facility] [place] - 05/01/2023 * * *Final Report* * [...] No radiographic evidence of acute osseous abnormality Coagulating Operator: [facility] Transcribe Date/Time: May 01 2023 1:20P Dictated by : PIERRE GOMES MD This examination was interpreted and the report reviewed and electronically signed by: PIERRE GOMES MD on May 01 2023 1:25PM [facility] Radiology Study observation (narrative) [facility] XR Ankle - right AP and Late ral and obliqueOrdered By: Ccf Provider on 05-01-2023 [facility] No Panel InformationOrdered By: Dr. Cuello on 02-05-2023 Prostate Specific Antigen Screen 0.53 ng/mL 0.00-4.00 [facility] Comment on above: This test was perfor med using the TPSA assay method for theseedchange chemistry system. Values obtained with differentassay methods cannot be used interchangably.When changing PSA assays in the course of monitoring apatient, additional sequential testing should be carriedout to confirm baseline values. Whole blood hemoglobin A1c/t otal hemoglobin ratio (mass fraction)Ordered By: Dr. Cuello on 02-05-2023 HbA1c (Bld) [Mass fraction] 5.7 % 3.8-5.6 [facility] Comment on above: Normal < 5.7 % Predi abetic 5.7 - 6.4 % Diabetic >or= 6.5 % Please note range changes. CHEM 6 (LYTES, BUN CREA)on 0 12-14-2022 Anion gap [Moles/Vol] 13 mmol/L Normal 7-17 [facility] Comment on above: Performed By: #### S CRSB #### [facility] (DEFAULT) [address] [place] [address] Chloride [Moles/Vol] 108 mmol/L Normal 98-108 [facility] Comment on above: Performed By: #### S CRSB #### [facility] (DEFAULT) [address] [place] [id number] CO2 [Moles/Vol] 26 mmol/L Normal 21-31 [facility] Comment on above: Performed By: #### S CRSB #### [facility] (DEFAULT) [address] [place] [address] Creatinine [Mass/Vol] 1.16 mg/dL Normal 0.70-1.30 [facility] Comment on above: Performed By: #### S CRSB #### [facility] (DEFAULT) [address] [place] [address] GFR/1.73 sq M.predicted among non-blacks MDRD (S/P/Bld) [Vol rate/Area] 77 mL/min/{1.73_m2} Normal >=60 [facility] Comment on above: Result Comment: Repo rted eGFR is based on the CKD-EPI 2020 equation using creatinine, age, and sex. Performed By: #### S CRSB #### [facility] (DEFAULT) [address] [place] [address] Potassium [Moles/Vol] 4.3 mmol/L Normal 3.5-5.0 [facility] Comment on above: Performed By: #### S CRSB #### [facility] (DEFAULT) [address] [place] [address] Sodium [Moles/Vol] 143 mmol/L Normal 135-145 [facility] Comment on above: Performed By: #### S CRSB #### [facility] (DEFAULT) [address] [place] [address] Urea nitrogen [Mass/Vol] 25 mg/dL Normal 7-25 [facility] Comment on above: Performed By: #### S CRSB #### [facility] (DEFAULT) [address] [place] [address] Urea nitrogen/Creatinine [Mass ratio] 22 mg/mg Normal [facility] Comment on above: Performed By: #### S CRSB #### [facility] (DEFAULT) [address] [place] [address] XR CHEST PA AND LATERALon XR CHEST PA AND LATERAL EXAM: XR CHEST P A AND LATERAL, 12/14/2022 12:24 PM COMPARISON: November [...] IMPRESSION: Postop changes. Small left effusion. Normal [facility] XR Chest PA and Lateralon IMPRESSION: Postop changes. Small left effusion. OLOGY EXAM: XR CHEST PA AND LATERAL, 12/14/2022 [...] IMPRESSION IMPRESSION: Postop changes. Small left effusion. [facility] Radiology Study observation (narrative) [facility] XR Chest PA and LateralOrder ed By: Lamonte Marcus on 12-14-2022 [facility] Work Phone: Absolute lymphocyte countOrd ered By: Dr. Cuello on 12-06-2022 Lymphocytes Auto (Unsp spec) [#/Vol] 2.58 10*3/uL 0.83-4.51 [facility] Basophil percentageOrdered B y: Dr. Cuello on 12-06-2022 Basophils/100 WBC (Bld) 1.1 % 0-1 [facility] Bilirubin [Mass/Vol] 0.60 mg/dL 0.20-1.00 [facility] Comment on above: For patients on eltr ombopag therapy, use of Dimension [place] TBIL is not recommended. Chloride [Moles/Vol] 108 mmol/L 98-107 [facility] Cholesterol [Mass/Vol] 117 mg/dL <[address] [facility] Comment on above: <200 mg/dL Desirable 200-240 mg/dL Borderline >240 mg/dL High Risk Eosinophils/100 WBC (Bld) 4.4 % 0-5 [facility] Glucose [Mass/Vol] 116 mg/dL 74-106 [facility] Comment on above: Fasting Glucose resu lt from 100 to 125 mg/dL suggests IMPAIRED HOMEOSTASIS per A.D.A. criteria. Neutrophils (Bld) [#/Vol] 4.7 10*3/uL 2.0-7.7 [facility] Neutrophils/100 WBC (Bld) 55.0 % 47-70 [facility] Potassium [Moles/Vol] 4.5 mmol/L 3.5-5.1 [facility] Protein [Mass/Vol] 7.6 g/dL 6.4-8.2 [facility] Sodium [Moles/Vol] 141 mmol/L 136-145 [facility] Triglyceride [Mass/Vol] 100 mg/dL <199 [facility] Comment on above: The drugs N-Acetylcy steine and Metamizole may falsely depress this assay.Serum Triglycerides Reference Interval Normal <150 mg/dL Borderline high 150 - 199 mg/dL High 200 - 499 mg/dL Very High > or = 500 mg/dL WBC (Bld) [#/Vol] 8.5 10*3/uL 4.4-11.0 [facility] Blood erythrocytes count (nu mber/volume)Ordered By: Dr. Cuello on 12-06-2022 RBC (Bld) [#/Vol] 3.89 10*6/uL 4.6-6.2 [facility] Blood hemoglobin measurement (mass/volume)Ordered By: Dr. Cuello on 12-06-2022 Hemoglobin (Bld) [Mass/Vol] 11.1 g/dL 13.0-16.5 [facility] Blood lymphocytes/100 leukoc ytesOrdered By: Dr. Cuello on 12-06-2022 Lymphocytes/100 WBC (Bld) 30.5 % 19-41 [facility] Blood monocytes/100 leukocyt esOrdered By: Dr. Cuello on 12-06-2022 Monocytes/100 WBC (Bld) 8.8 % 0-10 [facility] Blood platelet mean volumeOr dered By: Dr. Cuello on 12-06-2022 Platelet mean volume (Bld) [Entitic vol] 9.7 fL 6.2-12.0 [facility] Determination of erythrocyte mean corpuscular volume (MCV)Ordered By: Dr. Cuello on 12-06-2022 MCV (RBC) [Entitic vol] 90.5 fL 80-94 [facility] Hematocrit Auto (Bld) [Volum e fraction]Ordered By: Dr. Cuello on 12-06-2022 Hematocrit (Bld) [Volume fraction] 35.2 % 40-54 [facility] Laboratory - Chemistry and C hemistry - challengeOrdered By: Dr. Cuello on 12-06-2022 ALP [Catalytic activity/Vol] 138 U/L 45-117 [facility] ALT [Catalytic activity/Vol] 35 U/L 16-61 [facility] CO2 [Moles/Vol] 25.0 mmol/L 21.0-32.0 [facility] Globulin (S) [Mass/Vol] 4.0 g/dL 2.2-4.2 [facility] Urea nitrogen/Creatinine [Mass ratio] 10.2 mg/mg 10-20 [facility] Laboratory - Hematology and Cell countsOrdered By: Dr. Cuello on 12-06-2022 Erythrocyte distribution width (RBC) [Entitic vol] 45.8 fL 35.1-43.9 [facility] Erythrocyte distribution width (RBC) [Ratio] 13.8 % 11.6-14.6 [facility] Immature granulocytes/100 WBC (Bld) 0.200 % 0.0-0.9 [facility] Comment on above: IG% - Immature Granu locytes (promyelocytes, myelocytes and metamyelocytes) > 1% indicates that a LEFT SHIFT is Present. MCH (RBC) [Entitic mass] 28.5 pg 27.0-32.0 [facility] Nucleated RBC/100 WBC (Bld) [Ratio] 0 % 0-5 [facility] MCHC Auto (RBC) [Mass/Vol]Or dered By: Dr. Cuello on 12-06-2022 MCHC (RBC) [Mass/Vol] 31.5 g/dL 32-36 [facility] No Panel InformationOrdered By: Dr. Cuello on 12-06-2022 Estimated GFR (MDRD) Amer 84 mL/min >60 [facility] Comment on above: GFR Calc Estimated GFR (MDRD) Non-Af Amer 69 mL/min >60 [facility] Comment on above: Non- GFR Calc Platelets bldOrdered By: Dr. Cuello on 12-06-2022 Platelets (Bld) [#/Vol] 394 10*3/uL 150-450 [facility] Serum or plasma albumin jose urement (mass/volume)Ordered By: Dr. Cuello on 12-06-2022 Albumin [Mass/Vol] 3.6 g/dL 3.2-5.0 [facility] Serum or plasma albumin/glob ulin mass ratioOrdered By: Dr. Cuello on 12-06-2022 Albumin/Globulin [Mass ratio] 0.9 {ratio} 0.9-2.4 [facility] Serum or plasma calcium jose urement (mass/volume)Ordered By: Dr. Cuello on 12-06-2022 Calcium [Mass/Vol] 9.5 mg/dL 8.5-10.1 [facility] Serum or plasma cholesterol in HDL measurement (mass/volume)Ordered By: Dr. Cuello on 12-06-2022 Cholesterol in HDL [Mass/Vol] 43 mg/dL >40 [facility] Comment on above: The drugs N-Acetylcy steine and Metamizole may falsely depress this assay. Reference Range HDL <40 mg/dL Low HDL Cholesterol HDL >or= 60 mg/dL High HDL Cholesterol Serum or plasma cholesterol in VLDL measurement (mass/volume)Ordered By: Dr. Cuello on 12-06-2022 Cholesterol in VLDL [Mass/Vol] 20 mg/dL 5-40 [facility] Serum or plasma creatinine m easurement (mass/volume)Ordered By: Dr. Cuello on 12-06-2022 Creatinine [Mass/Vol] 1.18 mg/dL 0.70-1.30 [facility] Comment on above: The validity of the calculated GFR & GFRAA in patients over 70 years has not been determined. Clinical correlation is essential. Serum or plasma low density lipoprotein (LDL) cholesterol measurement (mass/volume)Ordered By: Dr. Cuello on 12-06-2022 Cholesterol in LDL [Mass/Vol] 54 mg/dL 0-130 [facility] Serum or plasma urea nitroge n measurement (mass/volume)Ordered By: Dr. Cuello on 12-06-2022 Urea nitrogen [Mass/Vol] 12 mg/dL 7-18 [facility] Thin prep Papanicolaou smear with manual screeningOrdered By: Dr. Cuello on 12-06-2022 Thin prep Papanicolaou smear with manual screening 20 U/L 15-37 [facility] Thin prep Papanicolaou smear with manual screening 8 5-15 [facility] CBC,PLATELETSon 11-18-2022 Hematocrit (Bld) [Volume fraction] 29.4 % Low 39.6-48.8 [facility] Comment on above: Performed By: #### G AS5L #### [facility] (DEFAULT) [address] [address] Hemoglobin (Bld) [Mass/Vol] 9.8 g/dL Low 13.4-16.8 [facility] Comment on above: Performed By: #### G AS5L #### [facility] (DEFAULT) [address] [address] MCV (RBC) [Entitic vol] 88.0 fL Normal 79.0-94.5 [facility] Comment on above: Performed By: #### G AS5L #### [facility] (DEFAULT) [address] [address] Mean Cell Hgb 29.3 pg Normal 26.1-33.3 [facility] Comment on above: Performed By: #### G AS5L #### [facility] (DEFAULT) [address] [address] Mean Cell Hgb Conc 33.3 g/dL Normal 31.9-36.5 [facility] Comment on above: Performed By: #### G AS5L #### [facility] (DEFAULT) [address] [address] Platelet mean volume (Bld) [Entitic vol] 10.5 fL Normal 8.7-12.3 [facility] Comment on above: Performed By: #### G AS5L #### [facility] (DEFAULT) [address] [place] [address] Platelets (Bld) [#/Vol] 261 10*3/uL Normal 146-337 [facility] Comment on above: Performed By: #### G AS5L #### [facility] (DEFAULT) [address] [place] [address] RBC (Bld) [#/Vol] 3.34 10*6/uL Low 4.38-5.83 [facility] Comment on above: Performed By: #### G AS5L #### [facility] (DEFAULT) [address] [place] [address]68 RBC Distribution 14.1 % Normal 10.9-14.3 [facility] Comment on above: Performed By: #### G AS5L #### [facility] (DEFAULT) [address] [place] [address] WBC (Bld) [#/Vol] 10.46 10*3/uL High 3.73-10.10 [facility] Comment on above: Performed By: #### G AS5L #### [facility] (DEFAULT) [address] [place] [address] Erythrocyte distribution width (RBC) [Ratio] 14.1 % 10.9 - 14.3 % [facility] Hematocrit (Bld) [Volume fraction] 29.4 % Low 39.6 - 48.8 % [facility] Hemoglobin (Bld) [Mass/Vol] 9.8 g/dL Low 13.4 - 16.8 g/dL [facility] Interpretation and review of laboratory results Abnormal [facility] MCH (RBC) [Entitic mass] 29.3 pg 26. 1 - 33.3 pg [facility] MCHC (RBC) [Mass/Vol] 33.3 g/dL 31.9 - 36.5 g/dL [facility] MCV (RBC) [Entitic vol] 88.0 fL 79.0 - 94.5 fL [facility] Platelet mean volume (Bld) [Entitic vol] 10.5 fL 8.7 - 12.3 fL [facility] Platelets (Bld) [#/Vol] 261 10*3/uL 146 - 337 K/uL [facility] RBC (Bld) [#/Vol] 3.34 10*6/uL Low [facility] WBC (Bld) [#/Vol] 10.46 10*3/uL High 3.73 - 10 .10 K/uL [facility] CHEM 7 (LYTES,BUN,CREA,GLUC) on 11-18-2022 Anion gap [Moles/Vol] 15 mmol/L Normal 7-17 [facility] Comment on above: Performed By: #### P TT #### [facility] (DEFAULT) [address] [address] Chloride [Moles/Vol] 102 mmol/L Normal 98-108 [facility] Comment on above: Performed By: #### P TT #### [facility] (DEFAULT) [address] [place] [address]85 CO2 [Moles/Vol] 26 mmol/L Normal 21-31 [facility] Comment on above: Performed By: #### P TT #### [facility] (DEFAULT) [address] [address] Creatinine [Mass/Vol] 1.24 mg/dL Normal 0.70-1.30 [facility] Comment on above: Performed By: #### P TT #### [facility] (DEFAULT) [address] [place] [address]197 GFR/1.73 sq M.predicted among non-blacks MDRD (S/P/Bld) [Vol rate/Area] 71 mL/min/{1.73_m2} Normal >=60 [facility] Comment on above: Result Comment: Repo rted eGFR is based on the CKD-EPI 2020 equation using creatinine, age, and sex. Performed By: #### P TT #### [facility] (DEFAULT) [address] [place] [address] Glucose [Mass/Vol] 108 mg/dL High 70-99 [facility] Comment on above: Performed By: #### P TT #### [facility] (DEFAULT) [address] [place] [address] Osmolality [Osmolality] 293 mosm/kg Normal 278-305 [facility] Comment on above: Performed By: #### P TT #### [facility] (DEFAULT) [address] [place] [address]328 Potassium [Moles/Vol] 4.5 mmol/L Normal 3.5-5.0 [facility] Comment on above: Performed By: #### P TT #### [facility] (DEFAULT) [address] [place] [address]73 Sodium [Moles/Vol] 138 mmol/L Normal 135-145 [facility] Comment on above: Performed By: #### P TT #### [facility] (DEFAULT) [address] [place] [address] 27947 Urea nitrogen [Mass/Vol] 21 mg/dL Normal 7-25 [facility] Comment on above: Performed By: #### P TT #### [facility] (DEFAULT) [address] [place] [address]99 Urea nitrogen/Creatinine [Mass ratio] 17 mg/mg Normal [facility] Comment on above: Performed By: #### P TT #### [facility] (DEFAULT) [address] [place] [address] Anion gap [Moles/Vol] 15 mmol/L 7 - 17 mmol/L [facility] Chloride [Moles/Vol] 102 mmol/L 98 - 10 8 mmol/L [facility] CO2 [Moles/Vol] 26 mmol/L 21 - 31 mmol/L [facility] Creatinine [Mass/Vol] 1.24 mg/dL 0.70 - 1.30 mg/dL [facility] GFR/1.73 sq M.predicted CKD-EPI (S/P/Bld) [Vol rate/Area] 71 - PINF [facility] Glucose [Mass/Vol] 108 mg/dL High 70 - 99 mg/dL [facility] Interpretation and review of laboratory results Abnormal [facility] Osmolality Calc [Osmolality] 293 [facility] Potassium [Moles/Vol] 4.5 mmol/L 3.5 - 5.0 mmol/L [facility] Sodium [Moles/Vol] 138 mmol/L 135 - 145 mmol/L [facility] Urea nitrogen [Mass/Vol] 21 mg/dL 7 - 25 mg/d L [facility] Urea nitrogen/Creatinine [Mass ratio] 17 mg/mg [facility] MAGNESIUMon 11-18-2022 Magnesium [Mass/Vol] 2.2 mg/dL Normal 1.6-2.6 [facility] Comment on above: Performed By: #### P TT #### [facility] (DEFAULT) [address] [place] [address] Interpretation and review of laboratory results Normal [facility] Magnesium [Mass/Vol] 2.2 mg/dL 1.6 - 2 .6 mg/dL [facility] No Panel Informationon 11-18 [facility] XR CHEST PA AND LATERALon XR CHEST PA AND LATERAL EXAM: XR CHEST P A AND LATERAL, 11/17/2022 21:03 PM CLINICAL INDICATIONS: [...] greater than right basilar volume loss. Normal [facility] XR Chest PA and Lateralon RADIOLOGY RADIOLOGY [facility] CBC,PLATELETSon 11-17-2022 Hematocrit (Bld) [Volume fraction] 28.1 % Low 39.6-48.8 [facility] Comment on above: Performed By: #### G AS5L #### [facility] (DEFAULT) [address] [place] [address] Hemoglobin (Bld) [Mass/Vol] 9.5 g/dL Low 13.4-16.8 [facility] Comment on above: Performed By: #### G AS5L #### [facility] (DEFAULT) [address] [place] [address] MCV (RBC) [Entitic vol] 86.7 fL Normal 79.0-94.5 [facility] Comment on above: Performed By: #### G AS5L #### [facility] (DEFAULT) [address] [place] [address] Mean Cell Hgb 29.3 pg Normal 26.1-33.3 [facility] Comment on above: Performed By: #### G AS5L #### [facility] (DEFAULT) [address] [place] [address] Mean Cell Hgb Conc 33.8 g/dL Normal 31.9-36.5 [facility] Comment on above: Performed By: #### G AS5L #### [facility] (DEFAULT) [address] [place] [address] Platelet mean volume (Bld) [Entitic vol] 11.1 fL Normal 8.7-12.3 [facility] Comment on above: Performed By: #### G AS5L #### [facility] (DEFAULT) [address] [place] [address] Platelets (Bld) [#/Vol] 189 10*3/uL Normal 146-337 [facility] Comment on above: Performed By: #### G AS5L #### [facility] (DEFAULT) [address] [place] [address] RBC (Bld) [#/Vol] 3.24 10*6/uL Low 4.38-5.83 [facility] Comment on above: Performed By: #### G AS5L #### [facility] (DEFAULT) [address] [place] [address] 13092 RBC Distribution 13.8 % Normal 10.9-14.3 [facility] Comment on above: Performed By: #### G AS5L #### [facility] (DEFAULT) [address] [place] [address] WBC (Bld) [#/Vol] 9.48 10*3/uL Normal 3.73-10.10 [facility] Comment on above: Performed By: #### G AS5L #### [facility] (DEFAULT) [address] [place] [address] Erythrocyte distribution width (RBC) [Ratio] 13.8 % 10.9 - 14.3 % [facility] Hematocrit (Bld) [Volume fraction] 28.1 % Low 39.6 - 48.8 % [facility] Hemoglobin (Bld) [Mass/Vol] 9.5 g/dL Low 13.4 - 16.8 g/dL [facility] Interpretation and review of laboratory results Abnormal [facility] MCH (RBC) [Entitic mass] 29.3 pg 26. 1 - 33.3 pg [facility] MCHC (RBC) [Mass/Vol] 33.8 g/dL 31.9 - 36.5 g/dL [facility] MCV (RBC) [Entitic vol] 86.7 fL 79.0 - 94.5 fL [facility] Platelet mean volume (Bld) [Entitic vol] 11.1 fL 8.7 - 12.3 fL [facility] Platelets (Bld) [#/Vol] 189 10*3/uL 146 - 337 K/uL [facility] RBC (Bld) [#/Vol] 3.24 10*6/uL Low [facility] WBC (Bld) [#/Vol] 9.48 10*3/uL 3.73 - 10. 10 K/uL [facility] CHEM 7 (LYTES,BUN,CREA,GLUC) on 11-17-2022 Anion gap [Moles/Vol] 14 mmol/L Normal 7-17 [facility] Comment on above: Performed By: #### X M #### [facility] (DEFAULT) [address] [place] [address] Chloride [Moles/Vol] 100 mmol/L Normal 98-108 [facility] Comment on above: Performed By: #### X M #### [facility] (DEFAULT) [address] [place] [address] CO2 [Moles/Vol] 28 mmol/L Normal 21-31 [facility] Comment on above: Performed By: #### X M #### [facility] (DEFAULT) [address] [place] [address] Creatinine [Mass/Vol] 1.26 mg/dL Normal 0.70-1.30 [facility] Comment on above: Performed By: #### X M #### [facility] (DEFAULT) [address] [place] [address] GFR/1.73 sq M.predicted among non-blacks MDRD (S/P/Bld) [Vol rate/Area] 69 mL/min/{1.73_m2} Normal >=60 [facility] Comment on above: Result Comment: Repo rted eGFR is based on the CKD-EPI 2020 equation using creatinine, age, and sex. Performed By: #### X M #### [facility] (DEFAULT) [address] [place] [address] Glucose [Mass/Vol] 115 mg/dL High 70-99 [facility] Comment on above: Performed By: #### X M #### [facility] (DEFAULT) [address] [place] [address] Osmolality [Osmolality] 294 mosm/kg Normal 278-305 [facility] Comment on above: Performed By: #### X M #### [facility] (DEFAULT) [address] [place] [address] Potassium [Moles/Vol] 4.0 mmol/L Normal 3.5-5.0 [facility] Comment on above: Performed By: #### X M #### [facility] (DEFAULT) [address] [place] [address] Sodium [Moles/Vol] 138 mmol/L Normal 135-145 [facility] Comment on above: Performed By: #### X M #### [facility] (DEFAULT) [address] [place] [address] Urea nitrogen [Mass/Vol] 24 mg/dL Normal 7-25 [facility] Comment on above: Performed By: #### X M #### [facility] (DEFAULT) [address] [place] [address] Urea nitrogen/Creatinine [Mass ratio] 19 mg/mg Normal [facility] Comment on above: Performed By: #### X M #### [facility] (DEFAULT) [address] [place] [address] Anion gap [Moles/Vol] 14 mmol/L 7 - 17 mmol/L [facility] Chloride [Moles/Vol] 100 mmol/L 98 - 10 8 mmol/L [facility] CO2 [Moles/Vol] 28 mmol/L 21 - 31 mmol/L [facility] Creatinine [Mass/Vol] 1.26 mg/dL 0.70 - 1.30 mg/dL [facility] GFR/1.73 sq M.predicted CKD-EPI (S/P/Bld) [Vol rate/Area] 69 - PINF [facility] Glucose [Mass/Vol] 115 mg/dL High 70 - 99 mg/dL [facility] Interpretation and review of laboratory results Abnormal [facility] Osmolality Calc [Osmolality] 294 [facility] Potassium [Moles/Vol] 4.0 mmol/L 3.5 - 5.0 mmol/L [facility] Sodium [Moles/Vol] 138 mmol/L 135 - 145 mmol/L [facility] Urea nitrogen [Mass/Vol] 24 mg/dL 7 - 25 mg/d L [facility] Urea nitrogen/Creatinine [Mass ratio] 19 mg/mg [facility] MAGNESIUMon 11-17-2022 Magnesium [Mass/Vol] 2.0 mg/dL Normal 1.6-2.6 [facility] Comment on above: Performed By: #### X M #### [facility] (DEFAULT) [address] [place] [address] Interpretation and review of laboratory results Normal [facility] Magnesium [Mass/Vol] 2.0 mg/dL 1.6 - 2 .6 mg/dL [facility] No Panel Informationon 11-17 [facility] TYPE AND SCREENon 11-17-2022 ABO/RH(D) TYPE Positive Normal [facility] Comment on above: Order Comment: Lucho sanchez current type and screen. Performed By: #### X M #### [facility] (DEFAULT) [address] [place] [address] ABO/RH(D) TYPE Positive [facility] XR Chest PA and Lateralon Radiology Study observation (narrative) [facility] C REACTIVE PROTEINon 023 CRP [Mass/Vol] 172.55 mg/L High <10.00 [facility] Comment on above: Performed By: #### U LYTR, UCRER #### [facility] (DEFAULT) [address] [place] [address] CRP High sensitivity method [Mass/Vol] 172.55 mg/L High NINF - 10.00 mg/L [facility] Interpretation and review of laboratory results Abnormal [facility] CBC,PLATELETSon 11-16-2022 Hematocrit (Bld) [Volume fraction] 29.8 % Low 39.6-48.8 [facility] Comment on above: Performed By: #### X M #### [facility] (DEFAULT) [address] [place] [address] Hemoglobin (Bld) [Mass/Vol] 10.1 g/dL Low 13.4-16.8 [facility] Comment on above: Performed By: #### X M #### [facility] (DEFAULT) [address] [address] MCV (RBC) [Entitic vol] 88.4 fL Normal 79.0-94.5 O [facility] Comment on above: Performed By: #### X M #### [facility] (DEFAULT) [address] [address] Mean Cell Hgb 30.0 pg Normal 26.1-33.3 [facility] Comment on above: Performed By: #### X M #### [facility] (DEFAULT) [address] [address] Mean Cell Hgb Conc 33.9 g/dL Normal 31.9-36.5 [facility] Comment on above: Performed By: #### X M #### [facility] (DEFAULT) [address] [address] Platelet mean volume (Bld) [Entitic vol] 11.0 fL Normal 8.7-12.3 [facility] Comment on above: Performed By: #### X M #### [facility] (DEFAULT) [address] [address] Platelets (Bld) [#/Vol] 161 10*3/uL Normal 146-337 [facility] Comment on above: Performed By: #### X M #### [facility] (DEFAULT) [address] [address] RBC (Bld) [#/Vol] 3.37 10*6/uL Low 4.38-5.83 [facility] Comment on above: Performed By: #### X M #### [facility] (DEFAULT) [address] [place] [address] RBC Distribution 14.0 % Normal 10.9-14.3 [facility] Comment on above: Performed By: #### X M #### [facility] (DEFAULT) [address] [place] [address] WBC (Bld) [#/Vol] 10.90 10*3/uL High 3.73-10.10 [facility] Comment on above: Performed By: #### X M #### [facility] (DEFAULT) [address] [place] [address] Erythrocyte distribution width (RBC) [Ratio] 14.0 % 10.9 - 14.3 % [facility] Hematocrit (Bld) [Volume fraction] 29.8 % Low 39.6 - 48.8 % [facility] Hemoglobin (Bld) [Mass/Vol] 10.1 g/dL Low 13.4 - 16.8 g/dL [facility] Interpretation and review of laboratory results Abnormal [facility] MCH (RBC) [Entitic mass] 30.0 pg 26. 1 - 33.3 pg [facility] MCHC (RBC) [Mass/Vol] 33.9 g/dL 31.9 - 36.5 g/dL [facility] MCV (RBC) [Entitic vol] 88.4 fL 79.0 - 94.5 fL [facility] Platelet mean volume (Bld) [Entitic vol] 11.0 fL 8.7 - 12.3 fL [facility] Platelets (Bld) [#/Vol] 161 10*3/uL 146 - 337 K/uL [facility] RBC (Bld) [#/Vol] 3.37 10*6/uL Low [facility] WBC (Bld) [#/Vol] 10.90 10*3/uL High 3.73 - 10 .10 K/uL [facility] CHEM 7 (LYTES,BUN,CREA,GLUC) on 11-16-2022 Anion gap [Moles/Vol] 12 mmol/L Normal 7-17 [facility] Comment on above: Performed By: #### U KODY UCRER #### U [facility] (DEFAULT) [address] [place] [address] Chloride [Moles/Vol] 99 mmol/L Normal 98-108 [facility] Comment on above: Performed By: #### U KODY UCRER #### [facility] (DEFAULT) [address] [place] [address] CO2 [Moles/Vol] 30 mmol/L Normal 21-31 [facility] Comment on above: Performed By: #### Job GATES UCRER #### Job [facility] (DEFAULT) [address] [place] [address] Creatinine [Mass/Vol] 1.28 mg/dL Normal 0.70-1.30 [facility] Comment on above: Performed By: #### U LYMJ UCRER #### Job [facility] (DEFAULT) [address] [place] [address] GFR/1.73 sq M.predicted among non-blacks MDRD (S/P/Bld) [Vol rate/Area] 68 mL/min/{1.73_m2} Normal >=60 [facility] Comment on above: Result Comment: Repo rted eGFR is based on the CKD-EPI 2020 equation using creatinine, age, and sex. Performed By: #### U LYMJ UCRER #### U [facility] (DEFAULT) [address] [place] [address] Glucose [Mass/Vol] 111 mg/dL High 70-99 [facility] Comment on above: Performed By: #### U LYMJ UCRER #### U [facility] (DEFAULT) [address] [place] [address] Osmolality [Osmolality] 290 mosm/kg Normal 278-305 [facility] Comment on above: Performed By: #### U LYMJ UCRER #### [facility] (DEFAULT) [address] [place] [address] Potassium [Moles/Vol] 4.0 mmol/L Normal 3.5-5.0 [facility] Comment on above: Performed By: #### U LYTR, UCRER #### [facility] (DEFAULT) [address] [place] [address] Sodium [Moles/Vol] 137 mmol/L Normal 135-145 [facility] Comment on above: Performed By: #### U LYTR, UCRER #### [facility] (DEFAULT) [address] [place] [address] Urea nitrogen [Mass/Vol] 18 mg/dL Normal 7-25 [facility] Comment on above: Performed By: #### U LYTR, UCRER #### [facility] (DEFAULT) [address] [place] [address] Urea nitrogen/Creatinine [Mass ratio] 14 mg/mg Normal [facility] Comment on above: Performed By: #### U LYTR, UCRER #### [facility] (DEFAULT) [address] [place] [address] Anion gap [Moles/Vol] 12 mmol/L 7 - 17 mmol/L [facility] Chloride [Moles/Vol] 99 mmol/L 98 - 10 8 mmol/L [facility] CO2 [Moles/Vol] 30 mmol/L 21 - 31 mmol/L [facility] Creatinine [Mass/Vol] 1.28 mg/dL 0.70 - 1.30 mg/dL [facility] GFR/1.73 sq M.predicted CKD-EPI (S/P/Bld) [Vol rate/Area] 68 - PINF [facility] Glucose [Mass/Vol] 111 mg/dL High 70 - 99 mg/dL [facility] Interpretation and review of laboratory results Abnormal [facility] Osmolality Calc [Osmolality] 290 [facility] Potassium [Moles/Vol] 4.0 mmol/L 3.5 - 5.0 mmol/L [facility] Sodium [Moles/Vol] 137 mmol/L 135 - 145 mmol/L [facility] Urea nitrogen [Mass/Vol] 18 mg/dL 7 - 25 mg/d L [facility] Urea nitrogen/Creatinine [Mass ratio] 14 mg/mg [facility] ECGon 11-16-2022 [facility] ECGOrdered By: Dean chen on 11-16-2022 [facility] Work Phone: GLUCOSE POCon 11-16-2022 Glucose [Mass/Vol] 150 mg/dL High 70 - 99 mg/dL [facility] Glucose [Mass/Vol] 115 mg/dL High 70 - 99 mg/dL [facility] Glucose [Mass/Vol] 108 mg/dL High 70 - 99 mg/dL [facility] Interpretation and review of laboratory results Abnormal [facility] POC Sample Type CAPBL [facility] IONIZED CALCIUM, WHOLE BLOOD on 11-16-2022 ICA 4.40 mg/dL Low 4.60-5.30 [facility] Comment on above: Performed By: #### S CRSB #### [facility] (DEFAULT) [address] [place] [address] IONIZED CALCIUM, WHOLE BLOOD Ordered By: Yunior Mcdaniel on 11-16-2022 Calcium.ionized (Bld) [Moles/Vol] 4.40 mg/dL Low 4.60 - 5.30 mg/dL [facility] Interpretation and review of laboratory results Abnormal [facility] MAGNESIUMon 11-16-2022 Magnesium [Mass/Vol] 1.8 mg/dL Normal 1.6-2.6 [facility] Comment on above: Performed By: #### U LYTR, UCRER #### [facility] (DEFAULT) [address] [address] Interpretation and review of laboratory results Normal [facility] Magnesium [Mass/Vol] 1.8 mg/dL 1.6 - 2 .6 mg/dL [facility] No Panel Informationon 11-16 Interpretation and review of laboratory results Abnormal [facility] POC Sample Type CAPBL [facility] PREALBUMINon 11-16-2022 Prealbumin [Mass/Vol] 16 mg/dL Low 17-34 [facility] [facility] Comment on above: Performed By: #### U KODY, UCRER #### [facility] (DEFAULT) [address] [place] [address] Interpretation and review of laboratory results Abnormal [facility] Prealbumin [Mass/Vol] 16 mg/dL Low 17 - 3 4 mg/dL [facility] Portable XR Chest Viewson RADIOLOGY RADIOLOGY [facility] Radiology Study observation (narrative) [facility] Portable XR Chest ViewsOrder ed By: Chaz Brower on 11-16-2022 [facility] Work Phone: XR CHEST PORTABLEon 11-16-19 XR [...] removal of the anterior chest tubes. Normal [facility] CBC,PLATELETSon 11-15-2022 Hematocrit (Bld) [Volume fraction] 27.0 % Low 39.6-48.8 [facility] Comment on above: Performed By: #### U LYTR, UCRER #### U [facility] (DEFAULT) [address] [place] [address] Hemoglobin (Bld) [Mass/Vol] 9.2 g/dL Low 13.4-16.8 [facility] Comment on above: Performed By: #### U LYTR, UCRER #### U [facility] (DEFAULT) [address] [place] [address] MCV (RBC) [Entitic vol] 87.9 fL Normal 79.0-94.5 [facility] Comment on above: Performed By: #### U LYTR, UCRER #### U [facility] (DEFAULT) [address] [address] Mean Cell Hgb 30.0 pg Normal 26.1-33.3 [facility] Comment on above: Performed By: #### U LYTR, UCRER #### [facility] (DEFAULT) [address] [place] [address] Mean Cell Hgb Conc 34.1 g/dL Normal 31.9-36.5 [facility] Comment on above: Performed By: #### U LYTR, UCRER #### U [facility] (DEFAULT) [address] [address] Mean Platelet Volume Normal [facility] Comment on above: Result Comment: Not measured Performed By: #### U LYTR, UCRER #### U [facility] (DEFAULT) [address] [place] [address] Platelets (Bld) [#/Vol] 128 10*3/uL Low 146-337 [facility] Comment on above: Performed By: #### U LYTR, UCRER #### U [facility] (DEFAULT) [address] [place] [address] RBC (Bld) [#/Vol] 3.07 10*6/uL Low 4.38-5.83 [facility] Comment on above: Performed By: #### U LYTR, UCRER #### U [facility] (DEFAULT) [address] [place] [address] RBC Distribution 14.2 % Normal 10.9-14.3 [facility] Comment on above: Performed By: #### U LYTR UCRER #### [facility] (DEFAULT) [address] [place] [address] WBC (Bld) [#/Vol] 11.48 10*3/uL High 3.73-10.10 [facility] Comment on above: Performed By: #### U LYMJ UCRER #### [facility] (DEFAULT) [address] [place] [address] Erythrocyte distribution width (RBC) [Ratio] 14.2 % 10.9 - 14.3 % [facility] Hematocrit (Bld) [Volume fraction] 27.0 % Low 39.6 - 48.8 % [facility] Hemoglobin (Bld) [Mass/Vol] 9.2 g/dL Low 13.4 - 16.8 g/dL [facility] Interpretation and review of laboratory results Abnormal [facility] MCH (RBC) [Entitic mass] 30.0 pg 26. 1 - 33.3 pg [facility] MCHC (RBC) [Mass/Vol] 34.1 g/dL 31.9 - 36.5 g/dL [facility] MCV (RBC) [Entitic vol] 87.9 fL 79.0 - 94.5 fL [facility] Platelet mean volume (Bld) [Entitic vol] [facility] Platelets (Bld) [#/Vol] 128 10*3/uL Low 146 - 337 K/uL [facility] RBC (Bld) [#/Vol] 3.07 10*6/uL Low [facility] WBC (Bld) [#/Vol] 11.48 10*3/uL High 3.73 - 10 .10 K/uL [facility] CHEM 7 (LYTES,BUN,CREA,GLUC) on 11-15-2022 Anion gap [Moles/Vol] 11 mmol/L Normal 7-17 [facility] Comment on above: Performed By: #### X M #### U [facility] (DEFAULT) [address] [place] [address] Chloride [Moles/Vol] 104 mmol/L Normal 98-108 [facility] Comment on above: Performed By: #### X M #### [facility] (DEFAULT) [address] [place] [address] CO2 [Moles/Vol] 27 mmol/L Normal 21-31 [facility] Comment on above: Performed By: #### X M #### [facility] (DEFAULT) [address] [place] [address] Creatinine [Mass/Vol] 1.35 mg/dL High 0.70-1.30 [facility] Comment on above: Performed By: #### X M #### Job [facility] (DEFAULT) [address] [place] [address] GFR/1.73 sq M.predicted among non-blacks MDRD (S/P/Bld) [Vol rate/Area] 64 mL/min/{1.73_m2} Normal >=60 [facility] Comment on above: Result Comment: Repo rted eGFR is based on the CKD-EPI 2020 equation using creatinine, age, and sex. Performed By: #### X M #### Job [facility] (DEFAULT) [address] [place] [address] Glucose [Mass/Vol] 110 mg/dL High 70-99 [facility] Comment on above: Performed By: #### X M #### U [facility] (DEFAULT) [address] [address] Osmolality [Osmolality] 293 mosm/kg Normal 278-305 [facility] Comment on above: Performed By: #### X M #### [facility] (DEFAULT) [address] [place] [address] Potassium [Moles/Vol] 3.8 mmol/L Normal 3.5-5.0 [facility] Comment on above: Performed By: #### X M #### [facility] (DEFAULT) [address] [place] [address] Sodium [Moles/Vol] 138 mmol/L Normal 135-145 [facility] Comment on above: Performed By: #### X M #### [facility] (DEFAULT) [address] [place] [address] Urea nitrogen [Mass/Vol] 23 mg/dL Normal 7-25 [facility] Comment on above: Performed By: #### X M #### [facility] (DEFAULT) [address] [place] [address] Urea nitrogen/Creatinine [Mass ratio] 17 mg/mg Normal [facility] Comment on above: Performed By: #### X M #### [facility] (DEFAULT) [address] [place] [address] Anion gap [Moles/Vol] 11 mmol/L 7 - 17 mmol/L [facility] Chloride [Moles/Vol] 104 mmol/L 98 - 10 8 mmol/L [facility] CO2 [Moles/Vol] 27 mmol/L 21 - 31 mmol/L [facility] Creatinine [Mass/Vol] 1.35 mg/dL High 0.70 - 1.30 mg/dL [facility] GFR/1.73 sq M.predicted CKD-EPI (S/P/Bld) [Vol rate/Area] 64 - PINF [facility] Glucose [Mass/Vol] 110 mg/dL High 70 - 99 mg/dL [facility] Interpretation and review of laboratory results Abnormal [facility] Osmolality Calc [Osmolality] 293 [facility] Potassium [Moles/Vol] 3.8 mmol/L 3.5 - 5.0 mmol/L [facility] Sodium [Moles/Vol] 138 mmol/L 135 - 145 mmol/L [facility] Urea nitrogen [Mass/Vol] 23 mg/dL 7 - 25 mg/d L [facility] Urea nitrogen/Creatinine [Mass ratio] 17 mg/mg [facility] GLUCOSE POCon 11-15-2022 Glucose [Mass/Vol] 108 mg/dL High 70 - 99 mg/dL [facility] Interpretation and review of laboratory results Abnormal [facility] POC Sample Type CAPBL [facility] Glucose [Mass/Vol] 111 mg/dL High 70 - 99 mg/dL [facility] Interpretation and review of laboratory results Abnormal [facility] POC Sample Type CAPBL [facility] Glucose [Mass/Vol] 109 mg/dL High 70 - 99 mg/dL [facility] Interpretation and review of laboratory results Abnormal [facility] POC Sample Type CAPBL [facility] Glucose [Mass/Vol] 146 mg/dL High 70 - 99 mg/dL [facility] Interpretation and review of laboratory results Abnormal [facility] POC Sample Type CAPBL [facility] MAGNESIUMon 11-15-2022 Magnesium [Mass/Vol] 2.0 mg/dL Normal 1.6-2.6 [facility] Comment on above: Performed By: #### X M #### [facility] (DEFAULT) [address] [place] [address] Interpretation and review of laboratory results Normal [facility] Magnesium [Mass/Vol] 2.0 mg/dL 1.6 - 2 .6 mg/dL [facility] No Panel Informationon 11-15 [facility] PT,INR,PTTon 11-15-2022 aPTT Coag (Bld) [Time] 36.9 s High 24.0-34.3 [facility] Comment on above: Performed By: #### X M #### [facility] (DEFAULT) [address] [place] [address] INR Coag (PPP) [Relative time] 1.2 {INR} High 0.9-1.1 [facility] Comment on above: Performed By: #### X M #### [facility] (DEFAULT) [address] [place] [address] PT Coag (PPP) [Time] 15.5 s High 11.9-14.2 [facility] Comment on above: Performed By: #### X M #### [facility] (DEFAULT) [address] [place] [address] aPTT Coag (PPP) [Time] 36.9 s High [facility] INR Coag (Bld) [Relative time] 1.2 {INR} High 0.9 - 1.1 [facility] Interpretation and review of laboratory results Abnormal [facility] PT Coag (PPP) [Time] 15.5 s High [facility] Portable XR Chest Viewson RADIOLOGY RADIOLOGY [facility] Radiology Study observation (narrative) [facility] Portable XR Chest ViewsOrder ed By: Pat Thornton on 11-15-2022 [facility] Work Phone: XR CHEST PORTABLEon 11-15-19 XR [...] Bilateral thoracostomy tubes remain in place. Normal [facility] ARTERIAL BLOOD GASon 023 Base Excess -3.9 mmol/L Low -3.0-3.0 [facility] Comment on above: Order Comment: Obtai n for change in patient clinical condition. If obtained, notify Licensed Independent Provider (LIP). Performed By: #### X M #### [facility] (DEFAULT) [address] [place] [address] FIO2 < Normal [facility] Comment on above: Order Comment: Obtai n for change in patient clinical condition. If obtained, notify Licensed Independent Provider (LIP). Result Comment: lite rs NC Performed By: #### X M #### [facility] (DEFAULT) [address] [place] [address] HCO3 (Bld) [Moles/Vol] 21 mmol/L Low 22-28 [facility] Comment on above: Order Comment: Obtai n for change in patient clinical condition. If obtained, notify Licensed Independent Provider (LIP). Performed By: #### X M #### [facility] (DEFAULT) [address] [place] [address] pCO2 37 mm Hg Normal 32-48 [facility] Comment on above: Order Comment: Obtai n for change in patient clinical condition. If obtained, notify Licensed Independent Provider (LIP). Performed By: #### X M #### [facility] (DEFAULT) [address] [place] [address] PF Ratio > Normal [facility] Comment on above: Order Comment: Obtai n for change in patient clinical condition. If obtained, notify Licensed Independent Provider (LIP). Performed By: #### X M #### [facility] (DEFAULT) [address] [place] [address] pH (Bld) 7.37 [pH] Normal 7.35-7.45 [facility] Comment on above: Order Comment: Obtai n for change in patient clinical condition. If obtained, notify Licensed Independent Provider (LIP). Performed By: #### X M #### [facility] (DEFAULT) [address] [place] [address] 228[address] pO2 132 mm Hg High 83-108 [facility] Comment on above: Order Comment: Obtai n for change in patient clinical condition. If obtained, notify Licensed Independent Provider (LIP). Performed By: #### X M #### [facility] (DEFAULT) [address] [place] [address] sO2 99 % High 94-98 [facility] Comment on above: Order Comment: Obtai n for change in patient clinical condition. If obtained, notify Licensed Independent Provider (LIP). Performed By: #### X M #### [facility] (DEFAULT) [address] [place] [address] Specimen type Nom (Spec) Arterial Normal [facility] Comment on above: Order Comment: Obtai n for change in patient clinical condition. If obtained, notify Licensed Independent Provider (LIP). Performed By: #### X M #### [facility] (DEFAULT) [address] [address] Base excess Calc (Bld) [Moles/Vol] -3.9000 mmol/L Low -3.0 - 3.0 mmol/L [facility] CO2 (Bld) [Partial pressure] 37 mm[Hg] [facility] HCO3 (Bld) [Moles/Vol] 21 mmol/L Low 22 - 28 mmol/L [facility] Inhaled oxygen concentration % % [facility] Interpretation and review of laboratory results Abnormal [facility] Oxygen (Bld) [Partial pressure] 132 mm[Hg] High [facility] Oxygen saturation in Blood 99 % High 94 - 98 % [facility] PF Ratio [facility] pH (Bld) 7.37 [pH] 7.35 - 7.45 [facility] Specimen source Nom (Unsp spec) Arterial [facility] ARTERIAL BLOOD GAS PLUS LACT ATEon 11-14-2022 Base Excess -2.6 mmol/L Normal -3.0-3.0 [facility] Comment on above: Performed By: #### G AS5L #### [facility] (DEFAULT) [address] [place] [address] FIO2 < Normal [facility] Comment on above: Result Comment: lite rs NC Performed By: #### G AS5L #### U [facility] (DEFAULT) [address] [place] [address] HCO3 (Bld) [Moles/Vol] 23 mmol/L Normal 22-28 [facility] Comment on above: Performed By: #### G AS5L #### [facility] (DEFAULT) [address] [place] [address] Lactate, Whole Blood 1.5 mmol/L Normal 0.5-1.6 [facility] Comment on above: Performed By: #### G AS5L #### [facility] (DEFAULT) [address] [place] [address] pCO2 38 mm Hg Normal 32-48 [facility] Comment on above: Performed By: #### Hillary AS5L #### [facility] (DEFAULT) [address] [place] [address]443 PF Ratio > Normal [facility] Comment on above: Performed By: #### G AS5L #### [facility] (DEFAULT) [address] [place] [address]798 pH (Bld) 7.38 [pH] Normal 7.35-7.45 [facility] Comment on above: Performed By: #### G AS5L #### Job [facility] (DEFAULT) [address] [place] [address] pO2 87 mm Hg Normal 83-108 [facility] Comment on above: Performed By: #### G AS5L #### [facility] (DEFAULT) [address] [place] [address] 62651 sO2 98 % Normal 94-98 [facility] Comment on above: Performed By: #### Hillary AS5L #### [facility] (DEFAULT) [address] [place] [address] Specimen type Nom (Spec) Arterial Normal [facility] Comment on above: Performed By: #### G AS5L #### [facility] (DEFAULT) [address] [place] [address] Base excess Calc (Bld) [Moles/Vol] -2.6000 mmol/L -3.0 - 3.0 mmol/L [facility] CO2 (Bld) [Partial pressure] 38 mm[Hg] [facility] HCO3 (Bld) [Moles/Vol] 23 mmol/L 22 - 28 mmol/L [facility] Inhaled oxygen concentration % % [facility] Lactate [Moles/Vol] 1.5 mmol/L 0.5 - 1. 6 mmol/L [facility] Oxygen (Bld) [Partial pressure] 87 mm[Hg] [facility] Oxygen saturation in Blood 98 % 94 - 98 % [facility] PF Ratio [facility] pH (Bld) 7.38 [pH] 7.35 - 7.45 [facility] Specimen source Nom (Unsp spec) Arterial [facility] Base Excess -1.7 mmol/L Normal -3.0-3.0 [facility] Comment on above: Performed By: #### X M #### [facility] (DEFAULT) [address] [place] [address] FIO2 40 % Normal [facility] Comment on above: Result Comment: % Fi O2 on CPAP Performed By: #### X M #### [facility] (DEFAULT) [address] [place] [address] 979[address] HCO3 (Bld) [Moles/Vol] 24 mmol/L Normal 22-28 [facility] Comment on above: Performed By: #### X M #### [facility] (DEFAULT) [address] [place] [address] 85787 Lactate, Whole Blood 1.5 mmol/L Normal 0.5-1.6 [facility] Comment on above: Performed By: #### X M #### U [facility] (DEFAULT) [address] [place] [address] pCO2 42 mm Hg Normal 32-48 [facility] Comment on above: Performed By: #### X M #### [facility] (DEFAULT) [address] [place] [address] 27416 PF Ratio 235 Normal [facility] Comment on above: Performed By: #### X M #### U [facility] (DEFAULT) [address] [place] [address]79 pH (Bld) 7.36 [pH] Normal 7.35-7.45 [facility] Comment on above: Performed By: #### X M #### U [facility] (DEFAULT) [address] [place] [address] 10833 pO2 94 mm Hg Normal 83-108 [facility] Comment on above: Performed By: #### X M #### [facility] (DEFAULT) [address] [place] [address] 13532 sO2 99 % High 94-98 [facility] Comment on above: Performed By: #### X M #### [facility] (DEFAULT) [address] [place] [address] Specimen type Nom (Spec) Arterial Normal [facility] Comment on above: Performed By: #### X M #### [facility] (DEFAULT) [address] [place] [address] CBC,PLATELETSon 11-14-2022 Hematocrit (Bld) [Volume fraction] 33.0 % Low 39.6-48.8 [facility] Comment on above: Performed By: #### S CRSB #### U [facility] (DEFAULT) [address] [place] [address] Hemoglobin (Bld) [Mass/Vol] 11.2 g/dL Low 13.4-16.8 [facility] Comment on above: Performed By: #### S CRSB #### U [facility] (DEFAULT) [address] [place] [address] 32261 MCV (RBC) [Entitic vol] 86.8 fL Normal 79.0-94.5 O [facility] Comment on above: Performed By: #### S CRSB #### U [facility] (DEFAULT) [address] [place] [address] 05245 Mean Cell Hgb 29.5 pg Normal 26.1-33.3 [facility] Comment on above: Performed By: #### S CRSB #### U [facility] (DEFAULT) [address] [place] [address] 00114 Mean Cell Hgb Conc 33.9 g/dL Normal 31.9-36.5 [facility] Comment on above: Performed By: #### S CRSB #### U [facility] (DEFAULT) [address] [address] Platelet mean volume (Bld) [Entitic vol] 10.2 fL Normal 8.7-12.3 [facility] Comment on above: Performed By: #### S CRSB #### [facility] (DEFAULT) [address] [address] Platelets (Bld) [#/Vol] 134 10*3/uL Low 146-337 [facility] Comment on above: Performed By: #### S CRSB #### [facility] (DEFAULT) [address] [place] [address]752 RBC (Bld) [#/Vol] 3.80 10*6/uL Low 4.38-5.83 [facility] Comment on above: Performed By: #### S CRSB #### [facility] (DEFAULT) [address] [address] RBC Distribution 14.2 % Normal 10.9-14.3 [facility] Comment on above: Performed By: #### S CRSB #### U [facility] (DEFAULT) [address] [place] [address] WBC (Bld) [#/Vol] 13.56 10*3/uL High 3.73-10.10 [facility] Comment on above: Performed By: #### S CRSB #### [facility] (DEFAULT) [address] [place] [address] Erythrocyte distribution width (RBC) [Ratio] 14.2 % 10.9 - 14.3 % [facility] Hematocrit (Bld) [Volume fraction] 33.0 % Low 39.6 - 48.8 % [facility] Hemoglobin (Bld) [Mass/Vol] 11.2 g/dL Low 13.4 - 16.8 g/dL [facility] Interpretation and review of laboratory results Abnormal [facility] MCH (RBC) [Entitic mass] 29.5 pg 26. 1 - 33.3 pg [facility] MCHC (RBC) [Mass/Vol] 33.9 g/dL 31.9 - 36.5 g/dL [facility] MCV (RBC) [Entitic vol] 86.8 fL 79.0 - 94.5 fL [facility] Platelet mean volume (Bld) [Entitic vol] 10.2 fL 8.7 - 12.3 fL [facility] Platelets (Bld) [#/Vol] 134 10*3/uL Low 146 - 337 K/uL [facility] RBC (Bld) [#/Vol] 3.80 10*6/uL Low [facility] WBC (Bld) [#/Vol] 13.56 10*3/uL High 3.73 - 10 .10 K/uL [facility] CHEM 7 (LYTES,BUN,CREA,GLUC) on 11-14-2022 Anion gap [Moles/Vol] 16 mmol/L Normal 7-17 [facility] Comment on above: Performed By: #### M LINA, CHM7 ####[facility] (DEFAULT)[address] [place] [address] Chloride [Moles/Vol] 104 mmol/L Normal 98-108 [facility] Comment on above: Performed By: #### MARITZA CLIFFORD ####Job [facility] (DEFAULT)[address] [place] [address] CO2 [Moles/Vol] 23 mmol/L Normal 21-31 [facility] Comment on above: Performed By: #### VIRGIE CLIFFORD7 ####[facility] (DEFAULT)[address] [facility] [place] [address] Creatinine [Mass/Vol] 1.55 mg/dL High 0.70-1.30 [facility] Comment on above: Performed By: #### VIRGIE CLIFFORD7 ####[facility] (DEFAULT)[address] [place] [address], [place] [address] GFR/1.73 sq M.predicted among non-blacks MDRD (S/P/Bld) [Vol rate/Area] 54 mL/min/{1.73_m2} Low >=60 [facility] Comment on above: Result Comment: Repo rted eGFR is based on the CKD-EPI 2020 equation using creatinine, age, and sex. Performed By: #### MARITZA CLIFFORD ####[facility] (DEFAULT)[address] [facility] [place] [address] Glucose [Mass/Vol] 136 mg/dL High 70-99 [facility] Comment on above: Performed By: #### MARITZA CLIFFORD ####Job [facility] (DEFAULT)[address] [place] [address], [place] [address] Osmolality [Osmolality] 296 mosm/kg Normal 278-305 [facility] Comment on above: Performed By: #### MARITZA CLIFFORD ####Job [facility] (DEFAULT)[address] [place] [address] Potassium [Moles/Vol] 4.5 mmol/L Normal 3.5-5.0 [facility] Comment on above: Performed By: #### VIRGIE CLIFFORD7 ####[facility] (DEFAULT)[address] [place] [address] Sodium [Moles/Vol] 138 mmol/L Normal 135-145 [facility] Comment on above: Performed By: #### VIRGIE CLIFFORD7 ####[facility] (DEFAULT)[address] [place] [address] Urea nitrogen [Mass/Vol] 24 mg/dL Normal 7-25 [facility] Comment on above: Performed By: #### VIRGIE CLIFFORD7 ####[facility] (DEFAULT)[address] [facility] [place] [address] Urea nitrogen/Creatinine [Mass ratio] 15 mg/mg Normal [facility] Comment on above: Performed By: #### VIRGIE CLIFFORD7 ####[facility] (DEFAULT)[address] [facility] [place] [address] Anion gap [Moles/Vol] 16 mmol/L 7 - 17 mmol/L [facility] Chloride [Moles/Vol] 104 mmol/L 98 - 10 8 mmol/L [facility] CO2 [Moles/Vol] 23 mmol/L 21 - 31 mmol/L [facility] Creatinine [Mass/Vol] 1.55 mg/dL High 0.70 - 1.30 mg/dL [facility] GFR/1.73 sq M.predicted CKD-EPI (S/P/Bld) [Vol rate/Area] 54 Low - PINF [facility] Glucose [Mass/Vol] 136 mg/dL High 70 - 99 mg/dL [facility] Osmolality Calc [Osmolality] 296 [facility] Potassium [Moles/Vol] 4.5 mmol/L 3.5 - 5.0 mmol/L [facility] Sodium [Moles/Vol] 138 mmol/L 135 - 145 mmol/L [facility] Urea nitrogen [Mass/Vol] 24 mg/dL 7 - 25 mg/d L [facility] Urea nitrogen/Creatinine [Mass ratio] 15 mg/mg [facility] Anion gap [Moles/Vol] 17 mmol/L Normal 7-17 [facility] Comment on above: Performed By: #### C HM7 ####[facility] (DEFAULT)[address] [place] [address] Chloride [Moles/Vol] 108 mmol/L Normal 98-108 [facility] Comment on above: Performed By: #### C HM7 ####[facility] (DEFAULT)[address] [place] [address], [place] [address] CO2 [Moles/Vol] 22 mmol/L Normal 21-31 [facility] Comment on above: Performed By: #### C HM7 ####[facility] (DEFAULT)[address] [place] [address], [place] [address] Creatinine [Mass/Vol] 1.52 mg/dL High 0.70-1.30 [facility] Comment on above: Performed By: #### C HM7 ####[facility] (DEFAULT)[address] [place] [address] GFR/1.73 sq M.predicted among non-blacks MDRD (S/P/Bld) [Vol rate/Area] 55 mL/min/{1.73_m2} Low >=60 [facility] Comment on above: Result Comment: Repo rted eGFR is based on the CKD-EPI 2020 equation using creatinine, age, and sex. Performed By: #### C HM7 ####[facility] (DEFAULT)[address] [place] [address] Glucose [Mass/Vol] 124 mg/dL High 70-99 [facility] Comment on above: Performed By: #### C HM7 ####[facility] (DEFAULT)[address] [place] [address] Osmolality [Osmolality] 303 mosm/kg Normal 278-305 [facility] Comment on above: Performed By: #### C HM7 ####[facility] (DEFAULT)[address] [place] [address] Potassium [Moles/Vol] 4.7 mmol/L [facility] 3.5-5.0 [facility] Comment on above: Performed By: #### C HM7 ####[facility] (DEFAULT)[address] [place] [address] Sodium [Moles/Vol] 142 mmol/L Normal 135-145 [facility] Comment on above: Performed By: #### C HM7 ####[facility] (DEFAULT)[address] [place] [address] Urea nitrogen [Mass/Vol] 22 mg/dL Normal 7-25 [facility] Comment on above: Performed By: #### C HM7 ####[facility] (DEFAULT)[address] [facility] [place] [address] Urea nitrogen/Creatinine [Mass ratio] 14 mg/mg Normal [facility] Comment on above: Performed By: #### C HM7 ####[facility] (DEFAULT)[address] [place] [address] Anion gap [Moles/Vol] 17 mmol/L 7 - 17 mmol/L [facility] Chloride [Moles/Vol] 108 mmol/L 98 - 10 8 mmol/L [facility] CO2 [Moles/Vol] 22 mmol/L 21 - 31 mmol/L [facility] Creatinine [Mass/Vol] 1.52 mg/dL High 0.70 - 1.30 mg/dL [facility] GFR/1.73 sq M.predicted CKD-EPI (S/P/Bld) [Vol rate/Area] 55 Low - PINF [facility] Glucose [Mass/Vol] 124 mg/dL High 70 - 99 mg/dL [facility] Interpretation and review of laboratory results Abnormal [facility] Osmolality Calc [Osmolality] 303 [facility] Potassium [Moles/Vol] 4.7 mmol/L 3.5 - 5.0 mmol/L [facility] Sodium [Moles/Vol] 142 mmol/L 135 - 145 mmol/L [facility] Urea nitrogen [Mass/Vol] 22 mg/dL 7 - 25 mg/d L [facility] Urea nitrogen/Creatinine [Mass ratio] 14 mg/mg [facility] CONTINUOUS CARDIAC MONITORIN G STRIPon 11-14-2022 [facility] CREATININE,RANDOM URINEon Creatinine (U) [Mass/Vol] 188.22 mg/dL Normal [facility] Comment on above: Order Comment: The r eference range has not been established for random urine specimens. The test result should be integrated into the clinical context for interpretation. Performed By: #### U KODY, PEEWEE #### [facility] (DEFAULT) [address] [address] Creatinine (24H U) [Mass/Vol] 188.22 mg/dL [facility] GLUCOSE POCon 11-14-2022 Glucose [Mass/Vol] 158 mg/dL High 70 - 99 mg/dL [facility] Interpretation and review of laboratory results Abnormal [facility] POC Sample Type CAPBL [facility] Glucose [Mass/Vol] 153 mg/dL High 70 - 99 mg/dL [facility] Interpretation and review of laboratory results Abnormal [facility] POC Sample Type CAPBL [facility] Glucose [Mass/Vol] 128 mg/dL High 70 - 99 mg/dL [facility] Interpretation and review of laboratory results Abnormal [facility] POC Sample Type VENO [facility] Glucose [Mass/Vol] 128 mg/dL High 70 - 99 mg/dL [facility] Interpretation and review of laboratory results Abnormal [facility] POC Sample Type [facility]BL [facility] Glucose [Mass/Vol] 136 mg/dL High 70 - 99 mg/dL [facility] Interpretation and review of laboratory results Abnormal [facility] POC Sample Type ARTER [facility] Glucose [Mass/Vol] 138 mg/dL High 70 - 99 mg/dL [facility] Interpretation and review of laboratory results Abnormal [facility] POC Sample Type ARTER [facility] Glucose [Mass/Vol] 132 mg/dL High 70 - 99 mg/dL [facility] Interpretation and review of laboratory results Abnormal [facility] POC Sample Type ARTER [facility] Glucose [Mass/Vol] 131 mg/dL High 70 - 99 mg/dL [facility] Interpretation and review of laboratory results Abnormal [facility] POC Sample Type ARTER [facility] Glucose [Mass/Vol] 115 mg/dL High 70 - 99 mg/dL [facility] Interpretation and review of laboratory results Abnormal [facility] POC Sample Type ARTER [facility] Glucose [Mass/Vol] 172 mg/dL High 70 - 99 mg/dL [facility] Interpretation and review of laboratory results Abnormal [facility] POC Sample Type ARTER [facility] HEMOGLOBIN & HEMATOCRITon Hematocrit (Bld) [Volume fraction] 31.8 % Low 39.6-48.8 [facility] Comment on above: Performed By: #### G AS5L #### [facility] (DEFAULT) [address] [place] [address] Hemoglobin (Bld) [Mass/Vol] 10.7 g/dL Low 13.4-16.8 [facility] Comment on above: Performed By: #### G AS5L #### [facility] (DEFAULT) [address] [address] Hematocrit (Bld) [Volume fraction] 31.8 % Low 39.6 - 48.8 % [facility] Hemoglobin (Bld) [Mass/Vol] 10.7 g/dL Low 13.4 - 16.8 g/dL [facility] Interpretation and review of laboratory results Abnormal [facility] IONIZED CALCIUM, WHOLE BLOOD on 11-14-2022 ICA 4.62 mg/dL Normal 4.60-5.30 [facility] Comment on above: Performed By: #### U KODY UCRER #### [facility] (DEFAULT) [address] [address] ICA 4.32 mg/dL Low 4.60-5.30 [facility] Comment on above: Performed By: #### S CRSB #### [facility] (DEFAULT) [address] [address] IONIZED CALCIUM, WHOLE BLOOD Ordered By: Fern Roberts on 11-14-2022 Calcium.ionized (Bld) [Moles/Vol] 4.62 mg/dL 4.60 - 5.30 mg/dL [facility] Interpretation and review of laboratory results Normal [facility] IONIZED CALCIUM, WHOLE BLOOD Ordered By: Odilon Puentes on 11-14-2022 Calcium.ionized (Bld) [Moles/Vol] 4.32 mg/dL Low 4.60 - 5.30 mg/dL [facility] Interpretation and review of laboratory results Abnormal [facility] LYTES (NA, K, CL) - URINE - RANDOMon 11-14-2022 Sodium (U) [Moles/Vol] 89 mmol/L Normal [facility] Comment on above: Order Comment: The r eference range has not been established for random urine specimens. The test result should be integrated into the clinical context for interpretation. Performed By: #### U KODY UCRER #### [facility] (DEFAULT) [address] [place] [address] Urine Chloride 57 mmol/L Normal [facility] Comment on above: Order Comment: The r eference range has not been established for random urine specimens. The test result should be integrated into the clinical context for interpretation. Performed By: #### U KODY, UCRER #### [facility] (DEFAULT) [address] [place] [address] Urine Potassium 141.2 mmol/L Normal [facility] Comment on above: Order Comment: The r eference range has not been established for random urine specimens. The test result should be integrated into the clinical context for interpretation. Performed By: #### U KODY, UCRER #### [facility] (DEFAULT) [address] [place] [address] Chloride (24H U) [Moles/Vol] 57 mmol/L [facility] Potassium (24H U) [Moles/Vol] 141.2 mmol/L [facility] Sodium (24H U) [Moles/Vol] 89 mmol/L [facility] MAGNESIUMon 11-14-2022 Magnesium [Mass/Vol] 3.2 mg/dL High 1.6-2.6 [facility] Comment on above: Performed By: #### M LINA, M7 ####[facility] (DEFAULT)[address] [place] [address] Magnesium [Mass/Vol] 3.2 mg/dL High 1.6 - 2 .6 mg/dL [facility] Magnesium [Mass/Vol] 2.3 mg/dL Normal 1.6-2.6 [facility] Comment on above: Performed By: #### M LINA ####[facility] (DEFAULT)[address] [place] [address] Interpretation and review of laboratory results Normal [facility] Magnesium [Mass/Vol] 2.3 mg/dL 1.6 - 2 .6 mg/dL [facility] No Panel Informationon 11-14 Interpretation and review of laboratory results Abnormal [facility]3] PT,INR,PTTon 11-14-2022 aPTT Coag (Bld) [Time] 31.0 s Normal 24.0-34.3 [facility] Comment on above: Performed By: #### X M #### [facility] (DEFAULT) [address] [place] [address] INR Coag (PPP) [Relative time] 1.2 {INR} High 0.9-1.1 [facility] Comment on above: Performed By: #### X M #### [facility] (DEFAULT) [address] [place] [address] PT Coag (PPP) [Time] 14.8 s High 11.9-14.2 [facility] Comment on above: Performed By: #### X M #### [facility] (DEFAULT) [address] [place] [address] aPTT Coag (PPP) [Time] 31.0 s [facility] INR Coag (Bld) [Relative time] 1.2 {INR} High 0.9 - 1.1 [facility] Interpretation and review of laboratory results Abnormal [facility] PT Coag (PPP) [Time] 14.8 s High [facility] Portable XR Chest Viewson RADIOLOGY RADIOLOGY [facility] RADIOLOGY RADIOLOGY [facility] Radiology Study observation (narrative) [facility] Portable XR Chest ViewsOrder ed By: Neville Aguilar on 11-14-2022 [facility] Work Phone: XR CHEST PORTABLEon 11-14-19 XR [...] Small bilateral apical pneumothoraces are evident. Normal [facility] XR CHEST PORTABLE EXAM: XR CHEST [...] tube which needs to be repositioned. Normal [facility] ACTIVATED CLOTTING TIME,POCo n 11-13-2022 aPTT Coag (Bld) [Time] 112.0 s OS [facility] Interpretation and review of laboratory results Normal [facility] Co[facility] (Bld) [Time] 590.0 s High OS [facility] Interpretation and review of laboratory results Abnormal [facility] aPTT Coag (Bld) [Time] 479.0 s High OS [facility] Interpretation and review of laboratory results Ab[facility] aPTT Coag (Bld) [Time] 467.0 s High OS [facility] Interpretation and review of laboratory results Abnormal [facility] aPTT Coag (Bld) [Time] 661.0 s High OS [facility] Interpretation and review of laboratory results Abnormal [facility] aPTT Coag (Bld) [Time] 563.0 s High OS [facility] Interpretation and review of laboratory results Abnormal [facility] aPTT Coag (Bld) [Time] 533.0 s High OS [facility] Interpretation and review of laboratory results Abnormal [facility] aPTT Coag (Bld) [Time] 542.0 s High OS [facility] Interpretation and review of laboratory results Ab[facility] aPTT Coag (Bld) [Time] 131.0 s OS [facility] Interpretation and review of laboratory results [facility] ARTERIAL BLOOD GAS PLUS LACT ATEon 11-13-2022 Base excess Calc (Bld) [Moles/Vol] -1.7000 mmol/L -3.0 - 3.0 mmol/L [facility] CO2 (Bld) [Partial pressure] 42 mm[Hg] [facility] HCO3 (Bld) [Moles/Vol] 24 mmol/L 22 - 28 mmol/L [facility] Inhaled oxygen concentration 40 % [facility] Interpretation and review of laboratory results Abnormal [facility] Lactate [Moles/Vol] 1.5 mmol/L 0.5 - 1. 6 mmol/L [facility] Oxygen (Bld) [Partial pressure] 94 mm[Hg] [facility] Oxygen saturation in Blood 99 % High 94 - 98 % [facility] PF Ratio 235 [facility] pH (Bld) 7.36 [pH] 7.35 - 7.45 [facility] Specimen source Nom (Unsp spec) Arterial [facility] Base Excess -0.2 mmol/L Normal -3.0-3.0 [facility] Comment on above: Order Comment: Colle ct first specimen at 30 minutes of arrival unit. Performed By: #### X M #### [facility] (DEFAULT) [address] [address] FIO2 50 % Normal [facility] Comment on above: Order Comment: Colle ct first specimen at 30 minutes of arrival unit. Result Comment: FiO2 via vent Performed By: #### X M #### [facility] (DEFAULT) [address] [place] [address] HCO3 (Bld) [Moles/Vol] 25 mmol/L Normal 22-28 [facility] Comment on above: Order Comment: Colle ct first specimen at 30 minutes of arrival unit. Performed By: #### X M #### [facility] (DEFAULT) [address] [place] [address] Lactate, Whole Blood 1.6 mmol/L Normal 0.5-1.6 [facility] Comment on above: Order Comment: Colle ct first specimen at 30 minutes of arrival unit. Performed By: #### X M #### [facility] (DEFAULT) [address] [place] [address] pCO2 41 mm Hg Normal 32-48 [facility] Comment on above: Order Comment: Colle ct first specimen at 30 minutes of arrival unit. Performed By: #### X M #### [facility] (DEFAULT) [address] [place] [address] PF Ratio 254 Normal [facility] Comment on above: Order Comment: Colle ct first specimen at 30 minutes of arrival unit. Performed By: #### X M #### [facility] (DEFAULT) [address] [place] [address] pH (Bld) 7.39 [pH] Normal 7.35-7.45 [facility] Comment on above: Order Comment: Colle ct first specimen at 30 minutes of arrival unit. Performed By: #### X M #### [facility] (DEFAULT) [address] [place] [address] pO2 127 mm Hg High 83-108 [facility] Comment on above: Order Comment: Colle ct first specimen at 30 minutes of arrival unit. Performed By: #### X M #### [facility] (DEFAULT) [address] [place] [address] sO2 99 % High 94-98 [facility] Comment on above: Order Comment: Colle ct first specimen at 30 minutes of arrival unit. Performed By: #### X M #### [facility] (DEFAULT) [address] [place] [address] Specimen type Nom (Spec) Arterial Normal [facility] Comment on above: Order Comment: Colle ct first specimen at 30 minutes of arrival unit. Performed By: #### X M #### [facility] (DEFAULT) [address] [place] [address] Base excess Calc (Bld) [Moles/Vol] -0.2000 mmol/L -3.0 - 3.0 mmol/L [facility] CO2 (Bld) [Partial pressure] 41 mm[Hg] [facility] HCO3 (Bld) [Moles/Vol] 25 mmol/L 22 - 28 mmol/L [facility] Inhaled oxygen concentration 50 % [facility] Interpretation and review of laboratory results Abnormal [facility] Lactate [Moles/Vol] 1.6 mmol/L 0.5 - 1. 6 mmol/L [facility] Oxygen (Bld) [Partial pressure] 127 mm[Hg] High [facility] Oxygen saturation in Blood 99 % High 94 - 98 % [facility] PF Ratio 254 [facility] pH (Bld) 7.39 [pH] 7.35 - 7.45 [facility] Specimen source Nom (Unsp spec) Arterial [facility] CBC,PLATELETSon 11-13-2022 Hematocrit (Bld) [Volume fraction] 32.3 % Low 39.6-48.8 [facility] Comment on above: Performed By: #### P TT #### [facility] (DEFAULT) [address] [place] [address] Hemoglobin (Bld) [Mass/Vol] 10.9 g/dL Low 13.4-16.8 [facility] Comment on above: Performed By: #### P TT #### [facility] (DEFAULT) [address] [place] [address] MCV (RBC) [Entitic vol] 87.5 fL Normal 79.0-94.5 [facility] Comment on above: Performed By: #### P TT #### [facility] (DEFAULT) [address] [place] [address] Mean Cell Hgb 29.5 pg Normal 26.1-33.3 [facility] Comment on above: Performed By: #### P TT #### [facility] (DEFAULT) [address] [place] [address] [id number] Mean Cell Hgb Conc 33.7 g/dL Normal 31.9-36.5 [facility] Comment on above: Performed By: #### P TT #### [facility] (DEFAULT) [address] [place] [address] 16195 Platelet mean volume (Bld) [Entitic vol] 10.1 fL Normal 8.7-12.3 [facility] Comment on above: Performed By: #### P TT #### [facility] (DEFAULT) [address] [place] [address] 38557 Platelets (Bld) [#/Vol] 104 10*3/uL Low 146-337 [facility] Comment on above: Performed By: #### P TT #### [facility] (DEFAULT) [address] [place] [address] 45025 RBC (Bld) [#/Vol] 3.69 10*6/uL Low 4.38-5.83 [facility] Comment on above: Performed By: #### P TT #### [facility] (DEFAULT) [address] [place] [address] 72586 RBC Distribution 14.2 % Normal 10.9-14.3 [facility] Comment on above: Performed By: #### P TT #### [facility] (DEFAULT) [address] [place] [address] 02253 WBC (Bld) [#/Vol] 18.23 10*3/uL High 3.73-10.10 [facility] Comment on above: Performed By: #### P TT #### [facility] (DEFAULT) [address] [place] [address] 53312 Erythrocyte distribution width (RBC) [Ratio] 14.2 % 10.9 - 14.3 % [facility] Hematocrit (Bld) [Volume fraction] 32.3 % Low 39.6 - 48.8 % [facility] Hemoglobin (Bld) [Mass/Vol] 10.9 g/dL Low 13.4 - 16.8 g/dL [facility] Interpretation and review of laboratory results Abnormal [facility] MCH (RBC) [Entitic mass] 29.5 pg 26. 1 - 33.3 pg [facility] MCHC (RBC) [Mass/Vol] 33.7 g/dL 31.9 - 36.5 g/dL [facility] MCV (RBC) [Entitic vol] 87.5 fL 79.0 - 94.5 fL [facility] Platelet mean volume (Bld) [Entitic vol] 10.1 fL 8.7 - 12.3 fL [facility] Platelets (Bld) [#/Vol] 104 10*3/uL Low 146 - 337 K/uL [facility] RBC (Bld) [#/Vol] 3.69 10*6/uL Low [facility] WBC (Bld) [#/Vol] 18.23 10*3/uL High 3.73 - 10 .10 K/uL [facility] Hematocrit (Bld) [Volume fraction] 39.9 % Normal 39.6-48.8 [facility] Comment on above: Performed By: #### G AS5L #### [facility] (DEFAULT) [address] [place] [address] 18247 Hemoglobin (Bld) [Mass/Vol] 13.6 g/dL Normal 13.4-16.8 [facility] Comment on above: Performed By: #### G AS5L #### [facility] (DEFAULT) [address] [place] [address] 98828 MCV (RBC) [Entitic vol] 88.5 fL Normal 79.0-94.5 [facility] Comment on above: Performed By: #### G AS5L #### [facility] (DEFAULT) [address] [place] [address] 87751 Mean Cell Hgb 30.2 pg Normal 26.1-33.3 [facility] Comment on above: Performed By: #### G AS5L #### [facility] (DEFAULT) [address] [place] [address] 99845 Mean Cell Hgb Conc 34.1 g/dL Normal 31.9-36.5 [facility] Comment on above: Performed By: #### G AS5L #### [facility] (DEFAULT) [address] [place] [address] 08136 Platelet mean volume (Bld) [Entitic vol] 10.7 fL Normal 8.7-12.3 [facility] Comment on above: Performed By: #### G AS5L #### [facility] (DEFAULT) [address] [place] [address] 49636 Platelets (Bld) [#/Vol] 220 10*3/uL Normal 146-337 [facility] Comment on above: Performed By: #### G AS5L #### [facility] (DEFAULT) [address] [place] [address] 15920 RBC (Bld) [#/Vol] 4.51 10*6/uL Normal 4.38-5.83 [facility] Comment on above: Performed By: #### G AS5L #### [facility] (DEFAULT) [address] [place] [address] [phone] RBC Distribution 14.0 % Normal 10.9-14.3 [facility] Comment on above: Performed By: #### G AS5L #### [facility] (DEFAULT) [address] [place] [address] 43638 WBC (Bld) [#/Vol] 9.58 10*3/uL Normal 3.73-10.10 [facility] Comment on above: Performed By: #### Hillary AS5L #### [facility] (DEFAULT) [address] [place] [address] 63922 Erythrocyte distribution width (RBC) [Ratio] 14.0 % 10.9 - 14.3 % [facility] Hematocrit (Bld) [Volume fraction] 39.9 % 39.6 - 48.8 % [facility] Hemoglobin (Bld) [Mass/Vol] 13.6 g/dL 13.4 - 16.8 g/dL [facility] Interpretation and review of laboratory results Normal [facility] MCH (RBC) [Entitic mass] 30.2 pg 26. 1 - 33.3 pg [facility] MCHC (RBC) [Mass/Vol] 34.1 g/dL 31.9 - 36.5 g/dL [facility] MCV (RBC) [Entitic vol] 88.5 fL 79.0 - 94.5 fL [facility] Platelet mean volume (Bld) [Entitic vol] 10.7 fL 8.7 - 12.3 fL [facility] Platelets (Bld) [#/Vol] 220 10*3/uL 146 - 337 K/uL [facility] RBC (Bld) [#/Vol] 4.51 10*6/uL [facility] WBC (Bld) [#/Vol] 9.58 10*3/uL 3.73 - 10. 10 K/uL [facility] CHEM 7 (LYTES,BUN,CREA,GLUC) on 11-13-2022 Anion gap [Moles/Vol] 13 mmol/L Normal 7-17 [facility] Comment on above: Order Comment: After initiation [...] instructions. Performed By: #### P TT #### [facility] (DEFAULT) [address] [address] Chloride [Moles/Vol] 110 mmol/L High 98-108 [facility] Comment on above: Order Comment: After [...] instructions. Performed By: #### P TT #### [facility] (DEFAULT) [address] [place] [address] 32463 CO2 [Moles/Vol] 23 mmol/L Normal 21-31 [facility] Comment on above: Order Comment: After [...] Performed By: #### P TT #### [facility] (DEFAULT) [address] [place] [address] 23447 Creatinine [Mass/Vol] 1.26 mg/dL Normal 0.70-1.30 [facility] Comment on above: Order Comment: After initiation [...] Performed By: #### P TT #### [facility] (DEFAULT) [address] [place] [address] 73832 GFR/1.73 sq M.predicted among non-blacks MDRD (S/P/Bld) [Vol rate/Area] 69 mL/min/{1.73_m2} Normal >=60 [facility] Comment on above: Order Comment: After [...] sex. Performed By: #### P TT #### [facility] (DEFAULT) [address] [address] Glucose [Mass/Vol] 104 mg/dL High 70-99 [facility] Comment on above: Order Comment: After [...] Performed By: #### P TT #### [facility] (DEFAULT) [address] [place] [address] 51015 Osmolality [Osmolality] 298 mosm/kg Normal 278-305 [facility] Comment on above: Order Comment: After [...] instructions. Performed By: #### P TT #### [facility] (DEFAULT) [address] [place] [address] 83907 Potassium [Moles/Vol] 4.3 mmol/L Normal 3.5-5.0 [facility] Comment on above: Order Comment: After initiation [...] Performed By: #### P TT #### [facility] (DEFAULT) [address] [address] Sodium [Moles/Vol] 142 mmol/L Normal 135-145 [facility] Comment on above: Order Comment: After [...] Performed By: #### P TT #### [facility] (DEFAULT) [address] [address] Urea nitrogen [Mass/Vol] 16 mg/dL Normal 7-25 [facility] Comment on above: Order Comment: After [...] Performed By: #### P TT #### [facility] (DEFAULT) [address] [address] Urea nitrogen/Creatinine [Mass ratio] 13 mg/mg Normal [facility] Comment on above: Order Comment: After [...] instructions. Performed By: #### P TT #### [facility] (DEFAULT) [address] [place] [address] Anion gap [Moles/Vol] 13 mmol/L 7 - 17 mmol/L [facility] Chloride [Moles/Vol] 110 mmol/L High 98 - 10 8 mmol/L [facility] CO2 [Moles/Vol] 23 mmol/L 21 - 31 mmol/L [facility] Creatinine [Mass/Vol] 1.26 mg/dL 0.70 - 1.30 mg/dL [facility] GFR/1.73 sq M.predicted CKD-EPI (S/P/Bld) [Vol rate/Area] 69 - PINF [facility] Glucose [Mass/Vol] 104 mg/dL High 70 - 99 mg/dL [facility] Interpretation and review of laboratory results Abnormal [facility] Osmolality Calc [Osmolality] 298 [facility] Potassium [Moles/Vol] 4.3 mmol/L 3.5 - 5.0 mmol/L [facility] Sodium [Moles/Vol] 142 mmol/L 135 - 145 mmol/L [facility] Urea nitrogen [Mass/Vol] 16 mg/dL 7 - 25 mg/d L [facility] Urea nitrogen/Creatinine [Mass ratio] 13 mg/mg [facility] Anion gap [Moles/Vol] 16 mmol/L Normal 7-17 [facility] Comment on above: Performed By: #### X M #### [facility] (DEFAULT) [address] [place] [address] 24139 Chloride [Moles/Vol] 106 mmol/L Normal 98-108 [facility] Comment on above: Performed By: #### X M #### [facility] (DEFAULT) [address] [place] [address] CO2 [Moles/Vol] 21 mmol/L Normal 21-31 [facility] Comment on above: Performed By: #### X M #### [facility] (DEFAULT) [address] [place] [address] 47326 Creatinine [Mass/Vol] 1.20 mg/dL Normal 0.70-1.30 [facility] Comment on above: Performed By: #### X M #### [facility] (DEFAULT) [address] [place] [address] 03922 GFR/1.73 sq M.predicted among non-blacks MDRD (S/P/Bld) [Vol rate/Area] 74 mL/min/{1.73_m2} Normal >=60 [facility] Comment on above: Result Comment: Repo rted eGFR is based on the CKD-EPI 2020 equation using creatinine, age, and sex. Performed By: #### X M #### [facility] (DEFAULT) [address] [place] [address] 89719 Glucose [Mass/Vol] 102 mg/dL High 70-99 [facility] Comment on above: Performed By: #### X M #### [facility] (DEFAULT) [address] [place] [address] 37198 Osmolality [Osmolality] 294 mosm/kg Normal 278-305 [facility] Comment on above: Performed By: #### X M #### [facility] (DEFAULT) [address] [place] [address] 92113 Potassium [Moles/Vol] 4.3 mmol/L Normal 3.5-5.0 [facility] Comment on above: Performed By: #### X M #### [facility] (DEFAULT) [address] [place] [address] 16100 Sodium [Moles/Vol] 139 mmol/L Normal 135-145 [facility] Comment on above: Performed By: #### X M #### [facility] (DEFAULT) [address] [place] [address] 59545 Urea nitrogen [Mass/Vol] 19 mg/dL Normal 7-25 [facility] Comment on above: Performed By: #### X M #### [facility] (DEFAULT) [address] [place] [address] Urea nitrogen/Creatinine [Mass ratio] 16 mg/mg Normal [facility] Comment on above: Performed By: #### X M #### [facility] (DEFAULT) [address] [place] [address] Anion gap [Moles/Vol] 16 mmol/L 7 - 17 mmol/L [facility] Chloride [Moles/Vol] 106 mmol/L 98 - 10 8 mmol/L [facility] CO2 [Moles/Vol] 21 mmol/L 21 - 31 mmol/L [facility] Creatinine [Mass/Vol] 1.20 mg/dL 0.70 - 1.30 mg/dL [facility] GFR/1.73 sq M.predicted CKD-EPI (S/P/Bld) [Vol rate/Area] 74 - PINF [facility] Glucose [Mass/Vol] 102 mg/dL High 70 - 99 mg/dL [facility] Interpretation and review of laboratory results Abnormal [facility] Osmolality Calc [Osmolality] 294 [facility] Potassium [Moles/Vol] 4.3 mmol/L 3.5 - 5.0 mmol/L [facility] Sodium [Moles/Vol] 139 mmol/L 135 - 145 mmol/L [facility] Urea nitrogen [Mass/Vol] 19 mg/dL 7 - 25 mg/d L [facility] Urea nitrogen/Creatinine [Mass ratio] 16 mg/mg [facility] CONTINUOUS CARDIAC MONITORIN G STRIPon 11-13-2022 [facility] FIBRINOGEN, CLOTTABLEon 10-17 Fibrinogen-Clottable 233 mg/dL Normal 220-410 [facility] Comment on above: Result Comment: Func tional Fibrinogen (activity) levels can be affected by direct thrombin inhibitors such as heparins (>2.0 IU/ml) and dabigatran. Abnormal results should be interpreted with caution. Performed By: #### X M #### [facility] (DEFAULT) [address] [place] [address] Fibrinogen Coag (PPP) [Mass/Vol] 233 mg/dL 220 - 410 mg/dL [facility] Interpretation and review of laboratory results Normal [facility] GLUCOSE POCon 11-13-2022 Glucose [Mass/Vol] 168 mg/dL High 70 - 99 mg/dL [facility] Interpretation and review of laboratory results Abnormal [facility] POC Sample Type [facility] Glucose [Mass/Vol] 132 mg/dL High 70 - 99 mg/dL [facility] Interpretation and review of laboratory results Abnormal [facility] POC Sample Type ART[facility] Glucose [Mass/Vol] 87 mg/dL 70 - 99 mg/dL [facility] POC Sample Type [facility] Glucose [Mass/Vol] 97 mg/dL 70 - 99 mg/dL [facility] POC Sample Type [facility] Glucose [Mass/Vol] 118 mg/dL High 70 - 99 mg/dL [facility] Interpretation and review of laboratory results Abnormal [facility] POC Sample Type [facility] IONIZED CALCIUM, WHOLE BLOOD on 11-13-2022 ICA 4.12 mg/dL Low 4.60-5.30 [facility] Comment on above: Performed By: #### G AS5L #### [facility] (DEFAULT) [address] [place] [address] IONIZED CALCIUM, WHOLE BLOOD Ordered By: Makayla Mendosa on 11-13-2022 Calcium.ionized (Bld) [Moles/Vol] 4.12 mg/dL Low 4.60 - 5.30 mg/dL [facility] Interpretation and review of laboratory results Abnormal [facility] MAGNESIUMon 11-13-2022 Magnesium [Mass/Vol] 2.4 mg/dL Normal 1.6-2.6 [facility] Comment on above: Order Comment: First specimen to be drawn upon arrival to the unit. Performed By: #### M , M7, IPB ####[facility] (DEFAULT)[address] [place] [address] Magnesium [Mass/Vol] 2.4 mg/dL 1.6 - 2 .6 mg/dL [facility] No Panel Informationon 11-13 ABO/RH(D) TYPE Positive [facility] BLOOD COMPONENT TYPE Red Cells, Leukoreduced [facility] Product ABO/RH(D) Positive [facility] Product ABO/RH(D) NUMBER 5100 [facility] PRODUCT CODE [id number] [facility] UNIT STATUS released [facility] Interpretation and review of laboratory results Normal [facility] PHOSPHATE, INORGANICon 11-13 Phosphorous 4.6 mg/dL Normal 2.2-4.6 [facility] Comment on above: Performed By: #### P TT #### [facility] (DEFAULT) [address] [place] [address] Phosphate [Mass/Vol] 4.6 mg/dL 2.2 - 4 .6 mg/dL [facility] POC ARTERIAL BLOOD GASon Base excess Calc (Bld) [Moles/Vol] -1.0000 mmol/L -3.0 - 3.0 mmol/L [facility] Calcium.ionized (Bld) [Mass/Vol] 4.90 mg/dL 4.60 - 5.30 mg/dL [facility] CO2 (Bld) [Partial pressure] 48 mm[Hg] [facility] Glucose [Mass/Vol] 164 mg/dL High 70 - 99 mg/dL [facility] HCO3 (Bld) [Moles/Vol] 23 mmol/L 22 - 28 mmol/L [facility] Hematocrit (Bld) [Volume fraction] 30.3 % Low 40.2 - 50.4 % [facility] Hemoglobin (Bld) [Mass/Vol] 9.9 g/dL Low 13.4 - 16.8 g/dL [facility] Interpretation and review of laboratory results Abnormal [facility] Lactate [Moles/Vol] 2.0 mmol/L High 0.5 - 1. 6 mmol/L [facility] Oxygen (Bld) [Partial pressure] 234 mm[Hg] High [facility] Oxygen saturation in Blood 100 % High 94 - 98 % [facility] pH (Bld) 7.33 [pH] Low 7.35 - 7.45 [facility] Potassium [Moles/Vol] 4.4 mmol/L 3.5 - 5.0 mmol/L [facility] Sodium [Moles/Vol] 141 mmol/L 135 - 145 mmol/L [facility] Specimen source Nom (Unsp spec) Arterial [facility] Base excess Calc (Bld) [Moles/Vol] 0.3 mmol/L -3.0 - 3.0 mmol/L [facility] Calcium.ionized (Bld) [Mass/Vol] 3.89 mg/dL Low 4.60 - 5.30 mg/dL [facility] CO2 (Bld) [Partial pressure] 46 mm[Hg] [facility] Glucose [Mass/Vol] 177 mg/dL High 70 - 99 mg/dL [facility] HCO3 (Bld) [Moles/Vol] 24 mmol/L 22 - 28 mmol/L [facility] Hematocrit (Bld) [Volume fraction] 29.8 % Low 40.2 - 50.4 % [facility] Hemoglobin (Bld) [Mass/Vol] 9.7 g/dL Low 13.4 - 16.8 g/dL [facility] Interpretation and review of laboratory results Abnormal [facility] Lactate [Moles/Vol] 1.9 mmol/L High 0.5 - 1. 6 mmol/L [facility] Oxygen (Bld) [Partial pressure] 269 mm[Hg] High [facility] Oxygen saturation in Blood 100 % High 94 - 98 % [facility] pH (Bld) 7.36 [pH] 7.35 - 7.45 [facility] Potassium [Moles/Vol] 5.3 mmol/L High 3.5 - 5.0 mmol/L [facility] Sodium [Moles/Vol] 141 mmol/L 135 - 145 mmol/L [facility] Specimen source Nom (Unsp spec) Arterial [facility] Base excess Calc (Bld) [Moles/Vol] -2.1000 mmol/L -3.0 - 3.0 mmol/L [facility] Calcium.ionized (Bld) [Mass/Vol] 3.80 mg/dL Low 4.60 - 5.30 mg/dL [facility] CO2 (Bld) [Partial pressure] 46 mm[Hg] [facility] Glucose [Mass/Vol] 195 mg/dL High 70 - 99 mg/dL [facility] HCO3 (Bld) [Moles/Vol] 23 mmol/L 22 - 28 mmol/L [facility] Hematocrit (Bld) [Volume fraction] 28.0 % Low 40.2 - 50.4 % [facility] Hemoglobin (Bld) [Mass/Vol] 9.1 g/dL Low 13.4 - 16.8 g/dL [facility] Interpretation and review of laboratory results Abnormal [facility] Lactate [Moles/Vol] 1.1 mmol/L 0.5 - 1. 6 mmol/L [facility] Oxygen (Bld) [Partial pressure] 317 mm[Hg] High [facility] Oxygen saturation in Blood 100 % High 94 - 98 % [facility] pH (Bld) 7.33 [pH] Low 7.35 - 7.45 [facility] Potassium [Moles/Vol] 5.0 mmol/L 3.5 - 5.0 mmol/L [facility] Sodium [Moles/Vol] 141 mmol/L 135 - 145 mmol/L [facility] Specimen source Nom (Unsp spec) Arterial [facility] Base excess Calc (Bld) [Moles/Vol] 0.3 mmol/L -3.0 - 3.0 mmol/L [facility] Calcium.ionized (Bld) [Mass/Vol] 4.06 mg/dL Low 4.60 - 5.30 mg/dL [facility] CO2 (Bld) [Partial pressure] 45 mm[Hg] [facility] Glucose [Mass/Vol] 187 mg/dL High 70 - 99 mg/dL [facility] HCO3 (Bld) [Moles/Vol] 25 mmol/L 22 - 28 mmol/L [facility] Hematocrit (Bld) [Volume fraction] 30.5 % Low 40.2 - 50.4 % [facility] Hemoglobin (Bld) [Mass/Vol] 9.9 g/dL Low 13.4 - 16.8 g/dL [facility] Interpretation and review of laboratory results Abnormal [facility] Lactate [Moles/Vol] 1.1 mmol/L 0.5 - 1. 6 mmol/L [facility] Oxygen (Bld) [Partial pressure] 355 mm[Hg] High [facility] Oxygen saturation in Blood 100 % High 94 - 98 % [facility] pH (Bld) 7.36 [pH] 7.35 - 7.45 [facility] Potassium [Moles/Vol] 6.6 mmol/L Critically high 3.5 - 5.0 mmol/L [facility] Sodium [Moles/Vol] 136 mmol/L 135 - 145 mmol/L [facility] Specimen source Nom (Unsp spec) [facility]ial [facility] Base excess Calc (Bld) [Moles/Vol] 1.2 mmol/L -3.0 - 3.0 mmol/L [facility] Calcium.ionized (Bld) [Mass/Vol] 4.08 mg/dL Low 4.60 - 5.30 mg/dL [facility] CO2 (Bld) [Partial pressure] 44 mm[Hg] [facility] Glucose [Mass/Vol] 150 mg/dL High 70 - 99 mg/dL [facility] HCO3 (Bld) [Moles/Vol] 25 mmol/L 22 - 28 mmol/L [facility] Hematocrit (Bld) [Volume fraction] 32.3 % Low 40.2 - 50.4 % [facility] Hemoglobin (Bld) [Mass/Vol] 10.5 g/dL Low 13.4 - 16.8 g/dL [facility] Interpretation and review of laboratory results Abnormal [facility] Lactate [Moles/Vol] 0.7 mmol/L 0.5 - 1. 6 mmol/L [facility] Oxygen (Bld) [Partial pressure] 416 mm[Hg] High [facility] Oxygen saturation in Blood 100 % High 94 - 98 % [facility] pH (Bld) 7.39 [pH] 7.35 - 7.45 [facility] Potassium [Moles/Vol] 6.0 mmol/L High 3.5 - 5.0 mmol/L [facility] Sodium [Moles/Vol] 138 mmol/L 135 - 145 mmol/L [facility] Specimen source Nom (Unsp spec) Arterial [facility] Base excess Calc (Bld) [Moles/Vol] 2.1 mmol/L -3.0 - 3.0 mmol/L [facility] Calcium.ionized (Bld) [Mass/Vol] 4.29 mg/dL Low 4.60 - 5.30 mg/dL [facility] CO2 (Bld) [Partial pressure] 62 mm[Hg] High [facility] Glucose [Mass/Vol] 161 mg/dL High 70 - 99 mg/dL [facility] HCO3 (Bld) [Moles/Vol] 25 mmol/L 22 - 28 mmol/L [facility] Hematocrit (Bld) [Volume fraction] 34.7 % Low 40.2 - 50.4 % [facility] Hemoglobin (Bld) [Mass/Vol] 11.3 g/dL Low 13.4 - 16.8 g/dL [facility] Interpretation and review of laboratory results Abnormal [facility] Lactate [Moles/Vol] 0.5 mmol/L 0.5 - 1. 6 mmol/L [facility] Oxygen (Bld) [Partial pressure] 447 mm[Hg] High [facility] Oxygen saturation in Blood 100 % High 94 - 98 % [facility] pH (Bld) 7.28 [pH] Low 7.35 - 7.45 [facility] Potassium [Moles/Vol] 6.9 mmol/L Critically high 3.5 - 5.0 mmol/L [facility] Sodium [Moles/Vol] 137 mmol/L 135 - 145 mmol/L [facility] Specimen source Nom (Unsp spec) Arterial [facility] Base excess Calc (Bld) [Moles/Vol] -4.2000 mmol/L Low -3.0 - 3.0 mmol/L [facility] Calcium.ionized (Bld) [Mass/Vol] 4.68 mg/dL 4.60 - 5.30 mg/dL [facility] CO2 (Bld) [Partial pressure] 64 mm[Hg] High [facility] Glucose [Mass/Vol] 142 mg/dL High 70 - 99 mg/dL [facility] HCO3 (Bld) [Moles/Vol] 20 mmol/L Low 22 - 28 mmol/L [facility] Hematocrit (Bld) [Volume fraction] 41.1 % 40.2 - 50.4 % [facility] Hemoglobin (Bld) [Mass/Vol] 13.4 g/dL 13.4 - 16.8 g/dL [facility] Interpretation and review of laboratory results Abnormal [facility] Lactate [Moles/Vol] 0.4 mmol/L Low 0.5 - 1. 6 mmol/L [facility] Oxygen (Bld) [Partial pressure] 437 mm[Hg] High [facility] Oxygen saturation in Blood 100 % High 94 - 98 % [facility] pH (Bld) 7.18 [pH] Critically low 7.35 - 7.45 [facility] Potassium [Moles/Vol] 4.7 mmol/L 3.5 - 5.0 mmol/L [facility] Sodium [Moles/Vol] 141 mmol/L 135 - 145 mmol/L [facility] Specimen source Nom (Unsp spec) Arterial [facility] Base excess Calc (Bld) [Moles/Vol] -3.0000 mmol/L -3.0 - 3.0 mmol/L [facility] Calcium.ionized (Bld) [Mass/Vol] 4.80 mg/dL 4.60 - 5.30 mg/dL [facility] CO2 (Bld) [Partial pressure] 46 mm[Hg] [facility] Glucose [Mass/Vol] 115 mg/dL High 70 - 99 mg/dL [facility] HCO3 (Bld) [Moles/Vol] 22 mmol/L 22 - 28 mmol/L [facility] Hematocrit (Bld) [Volume fraction] 41.2 % 40.2 - 50.4 % [facility] Hemoglobin (Bld) [Mass/Vol] 13.5 g/dL 13.4 - 16.8 g/dL [facility] Interpretation and review of laboratory results Abnormal [facility] Lactate [Moles/Vol] 0.5 mmol/L 0.5 - 1. 6 mmol/L [facility] Oxygen (Bld) [Partial pressure] 453 mm[Hg] High [facility] Oxygen saturation in Blood 100 % High 94 - 98 % [facility] pH (Bld) 7.31 [pH] Low 7.35 - 7.45 [facility] Potassium [Moles/Vol] 3.7 mmol/L 3.5 - 5.0 mmol/L [facility] Sodium [Moles/Vol] 141 mmol/L 135 - 145 mmol/L [facility] [facility] Specimen source Nom (Unsp spec) Arterial [facility] PREPARE TO TRANSFUSE OR RED BLOOD CELLSon 11-13-2022 EXPIRATION DATE [facility] EXPIRATION DATE [facility] UNIT NUMBER [id number] [facility] UNIT NUMBER [id number] [facility] PT,INR,PTTon 11-13-2022 aPTT Coag (Bld) [Time] 28.5 s Normal 24.0-34.3 [facility] Comment on above: Result Comment: Resu lts inconsistent with previous results Performed By: #### S CRSB #### [facility] (DEFAULT) [address] [address] INR Coag (PPP) [Relative time] 1.3 {INR} High 0.9-1.1 [facility] Comment on above: Performed By: #### S CRSB #### [facility] (DEFAULT) [address] [address] PT Coag (PPP) [Time] 16.3 s High 11.9-14.2 [facility] Comment on above: Performed By: #### S CRSB #### [facility] (DEFAULT) [address] [address] PT,INR,PTTOrdered By: Madison Gongora on 11-13-2022 aPTT Coag (PPP) [Time] 28.5 s [facility] INR Coag (Bld) [Relative time] 1.3 {INR} High 0.9 - 1.1 [facility] Interpretation and review of laboratory results Abnormal [facility] PT Coag (PPP) [Time] 16.3 s High [facility] PTTon 11-13-2022 aPTT Coag (Bld) [Time] 94.1 s High 24.0-34.3 [facility] Comment on above: Order Comment: [...] administration instructions. Performed By: #### P TT ####[facility] (DEFAULT)[address] [place] [address] aPTT Coag (PPP) [Time] 94.1 s High [facility] Interpretation and review of laboratory results Abnormal [facility] aPTT Coag (Bld) [Time] 103.4 s High 24.0-34.3 [facility] Comment on above: Order Comment: [...] instructions. Performed By: #### G AS5L #### [facility] (DEFAULT) [address] [place] [address] aPTT Coag (PPP) [Time] 103.4 s High [facility] Interpretation and review of laboratory results Abnormal [facility] Portable XR Chest Viewson Radiology Study observation (narrative) [facility] XR ABDOMEN 1 VIEW PORTABLEon 11-13-2022 [...] junction. Consider advancement of 5 cm. Normal [facility] XR Abdomen Single viewon RADIOLOGY RADIOLOGY [facility] Radiology Study observation (narrative) [facility] XR Abdomen Single viewOrdere d By: Henrique Rizzo on 11-13-2022 [facility] Work Phone: CBC,PLATELETSon 11-12-2022 Hematocrit (Bld) [Volume fraction] 40.3 % Normal 39.6-48.8 [facility] Comment on above: Performed By: #### X M #### [facility] (DEFAULT) [address] [place] [address] Hemoglobin (Bld) [Mass/Vol] 13.5 g/dL Normal 13.4-16.8 [facility] Comment on above: Performed By: #### X M #### [facility] (DEFAULT) [address] [place] [address] MCV (RBC) [Entitic vol] 87.2 fL Normal 79.0-94.5 [facility] Comment on above: Performed By: #### X M #### [facility] (DEFAULT) [address] [place] [address] Mean Cell Hgb 29.2 pg Normal 26.1-33.3 [facility] Comment on above: Performed By: #### X M #### [facility] (DEFAULT) [address] [address] Mean Cell Hgb Conc 33.5 g/dL Normal 31.9-36.5 [facility] Comment on above: Performed By: #### X M #### [facility] (DEFAULT) [address] [place] [address] Platelet mean volume (Bld) [Entitic vol] 10.5 fL Normal 8.7-12.3 [facility] Comment on above: Performed By: #### X M #### [facility] (DEFAULT) [address] [place] [address] Platelets (Bld) [#/Vol] 207 10*3/uL Normal 146-337 [facility] Comment on above: Performed By: #### X M #### [facility] (DEFAULT) [address] [place] [address] RBC (Bld) [#/Vol] 4.62 10*6/uL Normal 4.38-5.83 [facility] Comment on above: Performed By: #### X M #### [facility] (DEFAULT) [address] [place] [address] RBC Distribution 14.1 % Normal 10.9-14.3 [facility] Comment on above: Performed By: #### X M #### [facility] (DEFAULT) [address] [place] [address] WBC (Bld) [#/Vol] 9.59 10*3/uL Normal 3.73-10.10 [facility] Comment on above: Performed By: #### X M #### [facility] (DEFAULT) [address] [place] [address] Erythrocyte distribution width (RBC) [Ratio] 14.1 % 10.9 - 14.3 % [facility] Hematocrit (Bld) [Volume fraction] 40.3 % 39.6 - 48.8 % [facility] Hemoglobin (Bld) [Mass/Vol] 13.5 g/dL 13.4 - 16.8 g/dL [facility] Interpretation and review of laboratory results Normal [facility] MCH (RBC) [Entitic mass] 29.2 pg 26. 1 - 33.3 pg [facility] MCHC (RBC) [Mass/Vol] 33.5 g/dL 31.9 - 36.5 g/dL [facility] MCV (RBC) [Entitic vol] 87.2 fL 79.0 - 94.5 fL [facility] Platelet mean volume (Bld) [Entitic vol] 10.5 fL 8.7 - 12.3 fL [facility] Platelets (Bld) [#/Vol] 207 10*3/uL 146 - 337 K/uL [facility] RBC (Bld) [#/Vol] 4.62 10*6/uL [facility] WBC (Bld) [#/Vol] 9.59 10*3/uL 3.73 - 10. 10 K/uL [facility] CHEM 7 (LYTES,BUN,CREA,GLUC) on 11-12-2022 Anion gap [Moles/Vol] 14 mmol/L Normal 7-17 [facility] Comment on above: Performed By: #### X M #### [facility] (DEFAULT) [address] [place] [address] Chloride [Moles/Vol] 107 mmol/L Normal 98-108 [facility] Comment on above: Performed By: #### X M #### [facility] (DEFAULT) [address] [place] [address] CO2 [Moles/Vol] 21 mmol/L Normal 21-31 [facility] Comment on above: Performed By: #### X M #### [facility] (DEFAULT) [address] [place] [address] Creatinine [Mass/Vol] 1.18 mg/dL Normal 0.70-1.30 [facility] Comment on above: Performed By: #### X M #### [facility] (DEFAULT) [address] [place] [address] GFR/1.73 sq M.predicted among non-blacks MDRD (S/P/Bld) [Vol rate/Area] 75 mL/min/{1.73_m2} Normal >=60 [facility] Comment on above: Result Comment: Repo rted eGFR is based on the CKD-EPI 2020 equation using creatinine, age, and sex. Performed By: #### X M #### [facility] (DEFAULT) [address] [place] [address] Glucose [Mass/Vol] 102 mg/dL High 70-99 [facility] Comment on above: Performed By: #### X M #### [facility] (DEFAULT) [address] [place] [address] Osmolality [Osmolality] 291 mosm/kg Normal 278-305 [facility] Comment on above: Performed By: #### X M #### [facility] (DEFAULT) [address] [place] [address] Potassium [Moles/Vol] 4.4 mmol/L Normal 3.5-5.0 [facility] Comment on above: Performed By: #### X M #### [facility] (DEFAULT) [address] [place] [address] Sodium [Moles/Vol] 138 mmol/L Normal 135-145 [facility] Comment on above: Performed By: #### X M #### [facility] (DEFAULT) [address] [place] [address] Urea nitrogen [Mass/Vol] 17 mg/dL Normal 7-25 [facility] Comment on above: Performed By: #### X M #### [facility] (DEFAULT) [address] [place] [address] Urea nitrogen/Creatinine [Mass ratio] 14 mg/mg Normal [facility] Comment on above: Performed By: #### X M #### [facility] (DEFAULT) [address] [place] [address] Anion gap [Moles/Vol] 14 mmol/L 7 - 17 mmol/L [facility] Chloride [Moles/Vol] 107 mmol/L 98 - 10 8 mmol/L [facility] CO2 [Moles/Vol] 21 mmol/L 21 - 31 mmol/L [facility] Creatinine [Mass/Vol] 1.18 mg/dL 0.70 - 1.30 mg/dL [facility] GFR/1.73 sq M.predicted CKD-EPI (S/P/Bld) [Vol rate/Area] 75 - PINF [facility] Glucose [Mass/Vol] 102 mg/dL High 70 - 99 mg/dL [facility] Interpretation and review of laboratory results Abnormal [facility] Osmolality Calc [Osmolality] 291 [facility] Potassium [Moles/Vol] 4.4 mmol/L 3.5 - 5.0 mmol/L [facility] Sodium [Moles/Vol] 138 mmol/L 135 - 145 mmol/L [facility] Urea nitrogen [Mass/Vol] 17 mg/dL 7 - 25 mg/d L [facility] Urea nitrogen/Creatinine [Mass ratio] 14 mg/mg [facility] CONTINUOUS CARDIAC MONITORIN G STRIPon 11-12-2022 [facility] PTTon 11-12-2022 aPTT Coag (Bld) [Time] 85.4 s High 24.0-34.3 [facility] Comment on above: Order Comment: [...] instructions. Performed By: #### P TT #### [facility] (DEFAULT) [address] [address] aPTT Coag (PPP) [Time] 85.4 s High OS [facility] Interpretation and review of laboratory results Abnormal [facility] aPTT Coag (Bld) [Time] 87.2 s High 24.0-34.3 [facility] Comment on above: Order Comment: Colle ct [...] by the Clinical Microbiology Laboratory at [facility]. It has not been cleared or approved by the FDA.The laboratory is regulated under CLIA as qualified to perform high-complexity testing. This test is used for clinical purposes. It should not be regarded as investigational or for research. Performed By: #### S CRSB #### [facility] (DEFAULT) [address] [address] aPTT Coag (PPP) [Time] 87.2 s High [facility] Interpretation and review of laboratory results Abnormal [facility] TYPE AND SCREENon 11-12-2022 ABO/RH(D) TYPE Positive Normal [facility] Comment on above: Performed By: #### U LYTR, UCRER #### [facility] (DEFAULT) [address] [address] ABO/RH(D) TYPE Positive [facility] CBC,PLATELETSon 11-11-2022 Hematocrit (Bld) [Volume fraction] 38.4 % Low 39.6-48.8 [facility] Comment on above: Performed By: #### S CRSB #### [facility] (DEFAULT) [address] [place] [address] Hemoglobin (Bld) [Mass/Vol] 12.9 g/dL Low 13.4-16.8 [facility] Comment on above: Performed By: #### S CRSB #### [facility] (DEFAULT) [address] [place] [address] MCV (RBC) [Entitic vol] 87.7 fL Normal 79.0-94.5 [facility] Comment on above: Performed By: #### S CRSB #### [facility] (DEFAULT) [address] [place] [address] Mean Cell Hgb 29.5 pg Normal 26.1-33.3 [facility] Comment on above: Performed By: #### S CRSB #### [facility] (DEFAULT) [address] [place] [address] Mean Cell Hgb Conc 33.6 g/dL Normal 31.9-36.5 [facility] Comment on above: Performed By: #### S CRSB #### [facility] (DEFAULT) [address] [place] [address] Platelet mean volume (Bld) [Entitic vol] 10.4 fL Normal 8.7-12.3 [facility] Comment on above: Performed By: #### S CRSB #### [facility] (DEFAULT) [address] [place] [address] Platelets (Bld) [#/Vol] 182 10*3/uL Normal 146-337 [facility] Comment on above: Performed By: #### S CRSB #### [facility] (DEFAULT) [address] [place] [address] RBC (Bld) [#/Vol] 4.38 10*6/uL Normal 4.38-5.83 [facility] Comment on above: Performed By: #### S CRSB #### [facility] (DEFAULT) [address] [place] [address] RBC Distribution 14.0 % Normal 10.9-14.3 [facility] Comment on above: Performed By: #### S CRSB #### [facility] (DEFAULT) [address] [place] [address] WBC (Bld) [#/Vol] 8.72 10*3/uL Normal 3.73-10.10 [facility] Comment on above: Performed By: #### S CRSB #### [facility] (DEFAULT) [address] [place] [address] Erythrocyte distribution width (RBC) [Ratio] 14.0 % 10.9 - 14.3 % [facility] Hematocrit (Bld) [Volume fraction] 38.4 % Low 39.6 - 48.8 % [facility] Hemoglobin (Bld) [Mass/Vol] 12.9 g/dL Low 13.4 - 16.8 g/dL [facility] Interpretation and review of laboratory results Abnormal [facility] MCH (RBC) [Entitic mass] 29.5 pg 26. 1 - 33.3 pg [facility] MCHC (RBC) [Mass/Vol] 33.6 g/dL 31.9 - 36.5 g/dL [facility] MCV (RBC) [Entitic vol] 87.7 fL 79.0 - 94.5 fL [facility] Platelet mean volume (Bld) [Entitic vol] 10.4 fL 8.7 - 12.3 fL [facility] Platelets (Bld) [#/Vol] 182 10*3/uL 146 - 337 K/uL [facility] RBC (Bld) [#/Vol] 4.38 10*6/uL [facility] WBC (Bld) [#/Vol] 8.72 10*3/uL 3.73 - 10. 10 K/uL [facility] CHEM 7 (LYTES,BUN,CREA,GLUC) on 11-11-2022 Anion gap [Moles/Vol] 11 mmol/L Normal 7-17 [facility] Comment on above: Performed By: #### X M #### [facility] (DEFAULT) [address] [place] [address] Chloride [Moles/Vol] 108 mmol/L Normal 98-108 [facility] Comment on above: Performed By: #### X M #### [facility] (DEFAULT) [address] [place] [address] CO2 [Moles/Vol] 25 mmol/L Normal 21-31 [facility] Comment on above: Performed By: #### X M #### [facility] (DEFAULT) [address] [place] [address] Creatinine [Mass/Vol] 1.24 mg/dL Normal 0.70-1.30 [facility] Comment on above: Performed By: #### X M #### [facility] (DEFAULT) [address] [place] [address] GFR/1.73 sq M.predicted among non-blacks MDRD (S/P/Bld) [Vol rate/Area] 71 mL/min/{1.73_m2} Normal >=60 [facility] Comment on above: Result Comment: Repo rted eGFR is based on the CKD-EPI 2020 equation using creatinine, age, and sex. Performed By: #### X M #### [facility] (DEFAULT) [address] [place] [address] Glucose [Mass/Vol] 104 mg/dL High 70-99 [facility] Comment on above: Performed By: #### X M #### [facility] (DEFAULT) [address] [place] [address] Osmolality [Osmolality] 296 mosm/kg Normal 278-305 [facility] Comment on above: Performed By: #### X M #### [facility] (DEFAULT) [address] [place] [address] Potassium [Moles/Vol] 4.3 mmol/L Normal 3.5-5.0 [facility] Comment on above: Performed By: #### X M #### [facility] (DEFAULT) [address] [place] [address] Sodium [Moles/Vol] 140 mmol/L Normal 135-145 [facility] Comment on above: Performed By: #### X M #### [facility] (DEFAULT) [address] [place] [address] Urea nitrogen [Mass/Vol] 19 mg/dL Normal 7-25 [facility] Comment on above: Performed By: #### X M #### [facility] (DEFAULT) [address] [place] [address] Urea nitrogen/Creatinine [Mass ratio] 15 mg/mg Normal [facility] Comment on above: Performed By: #### X M #### [facility] (DEFAULT) [address] [place] [address] Anion gap [Moles/Vol] 11 mmol/L 7 - 17 mmol/L [facility] Chloride [Moles/Vol] 108 mmol/L 98 - 10 8 mmol/L [facility] CO2 [Moles/Vol] 25 mmol/L 21 - 31 mmol/L [facility] Creatinine [Mass/Vol] 1.24 mg/dL 0.70 - 1.30 mg/dL [facility] GFR/1.73 sq M.predicted CKD-EPI (S/P/Bld) [Vol rate/Area] 71 - PINF [facility] Glucose [Mass/Vol] 104 mg/dL High 70 - 99 mg/dL [facility] Interpretation and review of laboratory results Abnormal [facility] Osmolality Calc [Osmolality] 296 [facility] Potassium [Moles/Vol] 4.3 mmol/L 3.5 - 5.0 mmol/L [facility] Sodium [Moles/Vol] 140 mmol/L 135 - 145 mmol/L [facility] Urea nitrogen [Mass/Vol] 19 mg/dL 7 - 25 mg/d L [facility] Urea nitrogen/Creatinine [Mass ratio] 15 mg/mg [facility] CONTINUOUS CARDIAC MONITORIN G STRIPon 11-11-2022 [facility] PTTon 11-11-2022 aPTT Coag (Bld) [Time] 84.0 s High 24.0-34.3 [facility] Comment on above: Order Comment: [...] administration instructions. Performed By: #### P TT ####[facility] (DEFAULT)[address] [address] aPTT Coag (PPP) [Time] 84.0 s High [facility] Interpretation and review of laboratory results Abnormal [facility] aPTT Coag (Bld) [Time] 79.2 s High 24.0-34.3 [facility] Comment on above: Order Comment: [...] instructions. Performed By: #### G AS5L #### [facility] (DEFAULT) [address] [place] [address] aPTT Coag (PPP) [Time] 79.2 s High [facility] Interpretation and review of laboratory results Abnormal [facility] aPTT Coag (Bld) [Time] 99.9 s High 24.0-34.3 [facility] Comment on above: Order Comment: [...] instructions. Performed By: #### G AS5L #### [facility] (DEFAULT) [address] [place] [address] CBC,PLATELETSon 11-10-2022 Hematocrit (Bld) [Volume fraction] 38.8 % Low 39.6-48.8 [facility] Comment on above: Performed By: #### [facility] ####[facility] (DEFAULT)[address] [place] [address] Hemoglobin (Bld) [Mass/Vol] 13.1 g/dL Low 13.4-16.8 [facility] Comment on above: Performed By: #### H EMOGC ####[facility] (DEFAULT)[address] [place] [address] MCV (RBC) [Entitic vol] 87.8 fL Normal 79.0-94.5 [facility] Comment on above: Performed By: #### [facility] ####[facility] (DEFAULT)[address] [place] [address] Mean Cell Hgb 29.6 pg Normal 26.1-33.3 [facility] Comment on above: Performed By: #### H EMOGC ####[facility] (DEFAULT)[address] [place] [address] Mean Cell Hgb Conc 33.8 g/dL Normal 31.9-36.5 [facility] Comment on above: Performed By: #### H EMO ####[facility] (DEFAULT)[address] [place] [address] Platelet mean volume (Bld) [Entitic vol] 10.5 fL Normal 8.7-12.3 [facility] Comment on above: Performed By: #### H EMOGC ####[facility] (DEFAULT)[address] [place] [address] Platelets (Bld) [#/Vol] 213 10*3/uL Normal 146-337 [facility] Comment on above: Performed By: #### H EMO ####[facility] (DEFAULT)[address] [facility] [place] [address] RBC (Bld) [#/Vol] 4.42 10*6/uL Normal 4.38-5.83 [facility] Comment on above: Performed By: #### H EMO ####[facility] (DEFAULT)[address] [facility] [place] [address] RBC Distribution 14.1 % Normal 10.9-14.3 [facility] Comment on above: Performed By: #### H EMOGC ####[facility] (DEFAULT)[address] [place] [address] WBC (Bld) [#/Vol] 8.73 10*3/uL Normal 3.73-10.10 [facility] Comment on above: Performed By: #### H EMOGC ####[facility] (DEFAULT)[address] [facility] [place] [address] Erythrocyte distribution width (RBC) [Ratio] 14.1 % 10.9 - 14.3 % [facility] Hematocrit (Bld) [Volume fraction] 38.8 % Low 39.6 - 48.8 % [facility] Hemoglobin (Bld) [Mass/Vol] 13.1 g/dL Low 13.4 - 16.8 g/dL [facility] Interpretation and review of laboratory results Abnormal [facility] MCH (RBC) [Entitic mass] 29.6 pg 26. 1 - 33.3 pg [facility] MCHC (RBC) [Mass/Vol] 33.8 g/dL 31.9 - 36.5 g/dL [facility] MCV (RBC) [Entitic vol] 87.8 fL 79.0 - 94.5 fL [facility] Platelet mean volume (Bld) [Entitic vol] 10.5 fL 8.7 - 12.3 fL [facility] Platelets (Bld) [#/Vol] 213 10*3/uL 146 - 337 K/uL [facility] RBC (Bld) [#/Vol] 4.42 10*6/uL [facility] WBC (Bld) [#/Vol] 8.73 10*3/uL 3.73 - 10. 10 K/uL [facility] CHEM 7 (LYTES,BUN,CREA,GLUC) on 11-10-2022 Anion gap [Moles/Vol] 13 mmol/L Normal 7-17 [facility] Comment on above: Performed By: #### C HM7 ####[facility] (DEFAULT)[address] [place] [address] Chloride [Moles/Vol] 108 mmol/L Normal 98-108 [facility] Comment on above: Performed By: #### C HM7 ####[facility] (DEFAULT)[address] [place] [address] CO2 [Moles/Vol] 24 mmol/L Normal 21-31 [facility] Comment on above: Performed By: #### C HM7 ####[facility] (DEFAULT)[address] [place] [address] Creatinine [Mass/Vol] 1.08 mg/dL Normal 0.70-1.30 [facility] Comment on above: Performed By: #### C HM7 ####[facility] (DEFAULT)[address] [place] [address] GFR/1.73 sq M.predicted among non-blacks MDRD (S/P/Bld) [Vol rate/Area] 84 mL/min/{1.73_m2} Normal >=60 [facility] Comment on above: Result Comment: Repo rted eGFR is based on the CKD-EPI 2020 equation using creatinine, age, and sex. Performed By: #### C HM7 ####[facility] (DEFAULT)[address] [place] [address] Glucose [Mass/Vol] 114 mg/dL High 70-99 [facility] Comment on above: Performed By: #### C HM7 ####[facility] (DEFAULT)[address] [place] [address] Osmolality [Osmolality] 298 mosm/kg Normal 278-305 [facility] Comment on above: Performed By: #### C HM7 ####[facility] (DEFAULT)[address] [place] [address] Potassium [Moles/Vol] 4.0 mmol/L Normal 3.5-5.0 [facility] Comment on above: Performed By: #### C HM7 ####[facility] (DEFAULT)[address] [place] [address] Sodium [Moles/Vol] 141 mmol/L Normal 135-145 [facility] Comment on above: Performed By: #### C HM7 ####[facility] (DEFAULT)[address] [place] [address] Urea nitrogen [Mass/Vol] 19 mg/dL Normal 7-25 [facility] Comment on above: Performed By: #### C HM7 ####[facility] (DEFAULT)[address] [place] [address] Urea nitrogen/Creatinine [Mass ratio] 18 mg/mg Normal [facility] Comment on above: Performed By: #### C HM7 ####[facility] (DEFAULT)[address] [place] [address] Anion gap [Moles/Vol] 13 mmol/L 7 - 17 mmol/L [facility] Chloride [Moles/Vol] 108 mmol/L 98 - 10 8 mmol/L [facility] CO2 [Moles/Vol] 24 mmol/L 21 - 31 mmol/L [facility] Creatinine [Mass/Vol] 1.08 mg/dL 0.70 - 1.30 mg/dL [facility] GFR/1.73 sq M.predicted CKD-EPI (S/P/Bld) [Vol rate/Area] 84 - PINF [facility] Glucose [Mass/Vol] 114 mg/dL High 70 - 99 mg/dL [facility] Interpretation and review of laboratory results Abnormal [facility] Osmolality Calc [Osmolality] 298 [facility] Potassium [Moles/Vol] 4.0 mmol/L 3.5 - 5.0 mmol/L [facility] Sodium [Moles/Vol] 141 mmol/L 135 - 145 mmol/L [facility] Urea nitrogen [Mass/Vol] 19 mg/dL 7 - 25 mg/d L [facility] Urea nitrogen/Creatinine [Mass ratio] 18 mg/mg [facility] CONTINUOUS CARDIAC MONITORIN G STRIPon 11-10-[address] [facility] [address] CHEST WITHOUT CONTRASTon 11-10-2022 CT CHEST [...] have reviewed and approved this report. Normal [facility] CT Chest WO contraston 11-10 RADIOLOGY RADIOLOGY [facility] CT Chest WO contrastOrdered By: Aura Kline on 11-10-2022 [facility] Work Phone: EXTRA MICROon 11-10-2022 [facility] No Panel InformationOrdered By: Lidya Flores on 11-10-2022 [facility] Work Phone: PFT STANDARDon 11-10-2022 [facility] PTTOrdered By: Dilma mariano on 11-10-2022 aPTT Coag (PPP) [Time] 99.9 s High [facility] Interpretation and review of laboratory results Abnormal [facility] PTTon 11-10-2022 aPTT Coag (Bld) [Time] 70.1 s High 24.0-34.3 [facility] Comment on above: Order Comment: After [...] instructions. Performed By: #### G AS5L #### [facility] (DEFAULT) [address] [address] aPTT Coag (Bld) [Time] 110.4 s High 24.0-34.3 [facility] Comment on above: Order Comment: [...] Performed By: #### P TT #### [facility] (DEFAULT) [address] [address] aPTT Coag (Bld) [Time] 64.5 s High 24.0-34.3 [facility] Comment on above: Order Comment: Colle ct [...] by the Clinical Microbiology Laboratory at [facility]. It has not been cleared or approved by the FDA.The laboratory is regulated under CLIA as qualified to perform high-complexity testing. This test is used for clinical purposes. It should not be regarded as investigational or for research. Performed By: #### S CRSB #### [facility] (DEFAULT) [address] [address] aPTT Coag (PPP) [Time] 64.5 s High [facility] Interpretation and review of laboratory results Abnormal [facility] PTTOrdered By: Darlene Mancera on 11-10-2022 aPTT Coag (PPP) [Time] 70.1 s High [facility] Interpretation and review of laboratory results Abnormal [facility] PTTOrdered By: Carrie Salazar on 11-10-2022 aPTT Coag (PPP) [Time] 110.4 s High [facility] Interpretation and review of laboratory results Abnormal [facility] US.doppler Carotid arteries - bilateralon 11-10-2022 Radiology Study observation (narrative) [facility] US.doppler Lower extremity v ein - bilateralon 11-10-2022 [facility] Radiology Study observation (narrative) [facility] US.doppler Upper extremity a rtery - lefton 11-10-2022 Radiology Study observation (narrative) [facility] ABORH TYPE RECONFIRMATIONon 11-09-2022 ABO/RH(D) TYPE Positive [facility] ABO/RH(D) TYPE Positive Normal [facility] Comment on above: Performed By: #### T YPEC #### [facility] (DEFAULT) [address] [place] [address] CALCIUMon 11-09-2022 Calcium [Mass/Vol] 8.9 mg/dL Normal 8.6-10.5 [facility] Comment on above: Performed By: #### P TT #### [facility] (DEFAULT) [address] [place] [address] Calcium [Mass/Vol] 8.9 mg/dL 8.6 - 10. 5 mg/dL [facility] CBC AND ELECTRONIC DIFFon Basophils (Bld) [#/Vol] 0.09 10*3/uL Normal 0.00-0.09 [facility] Comment on above: Performed By: #### S CRSB #### [facility] (DEFAULT) [address] [address] Basophils/100 WBC (Bld) 1.0 % Normal [facility] Comment on above: Performed By: #### S CRSB #### [facility] (DEFAULT) [address] [address] DIFF STATUS Electronic Differential Normal [facility] Comment on above: Performed By: #### S CRSB #### [facility] (DEFAULT) [address] [address] Eosinophils (Bld) [#/Vol] 0.29 10*3/uL Normal 0.00-0.48 [facility] Comment on above: Performed By: #### S CRSB #### [facility] (DEFAULT) [address] [address] Eosinophils/100 WBC (Bld) 3.2 % Normal [facility] Comment on above: Performed By: #### S CRSB #### [facility] (DEFAULT) [address] [address] Hematocrit (Bld) [Volume fraction] 39.7 % Normal 39.6-48.8 [facility] Comment on above: Performed By: #### S CRSB #### [facility] (DEFAULT) [address] [address] Hemoglobin (Bld) [Mass/Vol] 13.4 g/dL Normal 13.4-16.8 [facility] Comment on above: Performed By: #### S CRSB #### [facility] (DEFAULT) [address] [address] Immature Grans % 0.2 % Normal [facility] Comment on above: Performed By: #### S CRSB #### [facility] (DEFAULT) [address] [address] Immature Grans Absolute < Normal <=0.07 [facility] Comment on above: Performed By: #### S CRSB #### [facility] (DEFAULT) [address] [address] Lymphocytes (Bld) [#/Vol] 4.26 10*3/uL High 0.83-3.57 [facility] Comment on above: Performed By: #### S CRSB #### [facility] (DEFAULT) [address] [address] Lymphocytes/100 WBC (Bld) 46.7 % Normal [facility] Comment on above: Performed By: #### S CRSB #### [facility] (DEFAULT) [address] [address] MCV (RBC) [Entitic vol] 87.8 fL Normal 79.0-94.5 [facility] Comment on above: Performed By: #### S CRSB #### [facility] (DEFAULT) [address] [address] Mean Cell Hgb 29.6 pg Normal 26.1-33.3 [facility] Comment on above: Performed By: #### S CRSB #### [facility] (DEFAULT) [address] [address] Mean Cell Hgb Conc 33.8 g/dL Normal 31.9-36.5 [facility] Comment on above: Performed By: #### S CRSB #### [facility] (DEFAULT) [address] [address] Monocytes (Bld) [#/Vol] 0.86 10*3/uL Normal 0.24-0.93 [facility] Comment on above: Performed By: #### S CRSB #### [facility] (DEFAULT) [address] [address] Monocytes/100 WBC (Bld) 9.4 % Normal [facility] Comment on above: Performed By: #### S CRSB #### [facility] (DEFAULT) [address] [place] [address] Nucleated RBC 0.0 /100 WBC Normal <=0.2 [facility] Comment on above: Performed By: #### S CRSB #### [facility] (DEFAULT) [address] [place] [address] Platelet mean volume (Bld) [Entitic vol] 10.3 fL Normal 8.7-12.3 [facility] Comment on above: Performed By: #### S CRSB #### [facility] (DEFAULT) [address] [place] [address] Platelets (Bld) [#/Vol] 202 10*3/uL Normal 146-337 [facility] Comment on above: Performed By: #### S CRSB #### [facility] (DEFAULT) [address] [address] RBC (Bld) [#/Vol] 4.52 10*6/uL Normal 4.38-5.83 [facility] Comment on above: Performed By: #### S CRSB #### [facility] (DEFAULT) [address] [address] RBC Distribution 14.5 % High 10.9-14.3 [facility] Comment on above: Performed By: #### S CRSB #### [facility] (DEFAULT) [address] [place] [address] Segs + Bands Auto 39.5 % Normal [facility] Comment on above: Performed By: #### S CRSB #### [facility] (DEFAULT) [address] [address] Segs + Bands,Absolute Auto 3.60 K/uL Normal 1.57-6.19 [facility] Comment on above: Performed By: #### S CRSB #### [facility] (DEFAULT) [address] [place] [address] WBC (Bld) [#/Vol] 9.12 10*3/uL Normal 3.73-10.10 [facility] Comment on above: Performed By: #### S CRSB #### [facility] (DEFAULT) [address] [place] [address] Basophils (Bld) [#/Vol] 0.09 10*3/uL 0.00 - 0.09 K/uL [facility] Basophils/100 WBC (Bld) 1.0 % [facility] Differential cell count method Nom (Bld) Electronic Differential [facility] Eosinophils (Bld) [#/Vol] 0.29 10*3/uL 0.00 - 0.48 K/uL [facility] Eosinophils/100 WBC (Bld) 3.2 % [facility] Erythrocyte distribution width (RBC) [Ratio] 14.5 % High 10.9 - 14.3 % [facility] Hematocrit (Bld) [Volume fraction] 39.7 % 39.6 - 48.8 % [facility] Hemoglobin (Bld) [Mass/Vol] 13.4 g/dL 13.4 - 16.8 g/dL [facility] Immature granulocytes (Bld) [#/Vol] K/uL NINF - 0.07 K/uL [facility] Immature granulocytes/100 WBC (Bld) 0.2 % [facility] Interpretation and review of laboratory results Abnormal [facility] Lymphocytes (Bld) [#/Vol] 4.26 10*3/uL High 0.83 - 3.57 K/uL [facility] Lymphocytes/100 WBC (Bld) 46.7 % [facility] MCH (RBC) [Entitic mass] 29.6 pg 26. 1 - 33.3 pg [facility] MCHC (RBC) [Mass/Vol] 33.8 g/dL 31.9 - 36.5 g/dL [facility] MCV (RBC) [Entitic vol] 87.8 fL 79.0 - 94.5 fL [facility] Monocytes (Bld) [#/Vol] 0.86 10*3/uL 0.24 - 0.93 K/uL [facility] Monocytes/100 WBC (Bld) 9.4 % [facility] Neutrophils (Bld) [#/Vol] 3.60 10*3/uL 1.57 - 6.19 K/uL [facility] Nucleated RBC/100 WBC (Bld) [Ratio] 0.0 % NINF [facility] Platelet mean volume (Bld) [Entitic vol] 10.3 fL 8.7 - 12.3 fL [facility] Platelets (Bld) [#/Vol] 202 10*3/uL 146 - 337 K/uL [facility] RBC (Bld) [#/Vol] 4.52 10*6/uL [facility] Segmented neutrophils/100 WBC (Bld) 39.5 % [facility] WBC (Bld) [#/Vol] 9.12 10*3/uL 3.73 - 10. 10 K/uL [facility] CHEM 7 (LYTES,BUN,CREA,GLUC) on 11-09-2022 Anion gap [Moles/Vol] 13 mmol/L Normal 7-17 [facility] Comment on above: Performed By: #### P TT #### [facility] (DEFAULT) [address] [address] Chloride [Moles/Vol] 106 mmol/L Normal 98-108 [facility] Comment on above: Performed By: #### P TT #### [facility] (DEFAULT) [address] [address] CO2 [Moles/Vol] 23 mmol/L Normal 21-31 [facility] Comment on above: Performed By: #### P TT #### [facility] (DEFAULT) [address] [address] Creatinine [Mass/Vol] 1.05 mg/dL Normal 0.70-1.30 [facility] Comment on above: Performed By: #### P TT #### [facility] (DEFAULT) [address] [address] GFR/1.73 sq M.predicted among non-blacks MDRD (S/P/Bld) [Vol rate/Area] 86 mL/min/{1.73_m2} Normal >=60 [facility] Comment on above: Result Comment: Repo rted eGFR is based on the CKD-EPI 2020 equation using creatinine, age, and sex. Performed By: #### P TT #### [facility] (DEFAULT) [address] [place] [address] Glucose [Mass/Vol] 100 mg/dL High 70-99 [facility] Comment on above: Performed By: #### P TT #### [facility] (DEFAULT) [address] [address] Osmolality [Osmolality] 292 mosm/kg Normal 278-305 [facility] Comment on above: Performed By: #### P TT #### [facility] (DEFAULT) [address] [place] [address] Potassium [Moles/Vol] 4.1 mmol/L Normal 3.5-5.0 [facility] Comment on above: Performed By: #### P TT #### [facility] (DEFAULT) [address] [place] [address] Sodium [Moles/Vol] 138 mmol/L Normal 135-145 [facility] Comment on above: Performed By: #### P TT #### [facility] (DEFAULT) [address] [address] Urea nitrogen [Mass/Vol] 20 mg/dL Normal 7-25 [facility] Comment on above: Performed By: #### P TT #### [facility] (DEFAULT) [address] [address] Urea nitrogen/Creatinine [Mass ratio] 19 mg/mg Normal [facility] Comment on above: Performed By: #### P TT #### [facility] (DEFAULT) [address] [place] [address] Anion gap [Moles/Vol] 13 mmol/L 7 - 17 mmol/L [facility] Chloride [Moles/Vol] 106 mmol/L 98 - 10 8 mmol/L [facility] CO2 [Moles/Vol] 23 mmol/L 21 - 31 mmol/L [facility] Creatinine [Mass/Vol] 1.05 mg/dL 0.70 - 1.30 mg/dL [facility] GFR/1.73 sq M.predicted CKD-EPI (S/P/Bld) [Vol rate/Area] 86 - PINF [facility] Glucose [Mass/Vol] 100 mg/dL High 70 - 99 mg/dL [facility] Osmolality Calc [Osmolality] 292 [facility] Potassium [Moles/Vol] 4.1 mmol/L 3.5 - 5.0 mmol/L [facility] Sodium [Moles/Vol] 138 mmol/L 135 - 145 mmol/L [facility] Urea nitrogen [Mass/Vol] 20 mg/dL 7 - 25 mg/d L [facility] Urea nitrogen/Creatinine [Mass ratio] 19 mg/mg [facility] CONTINUOUS CARDIAC MONITORIN G STRIPOrdered By: Unassigned Pacs on 11-09-2022 [facility] Work Phone: CT Chest WO contraston 11-09 Radiology Study observation (narrative) [facility] GLUCOSE POCon 11-09-2022 Glucose [Mass/Vol] 97 mg/dL 70 - 99 mg/dL [facility] POC Sample Type CAPBL [facility] Glucose [Mass/Vol] 124 mg/dL High 70 - 99 mg/dL [facility] Interpretation and review of laboratory results Abnormal [facility]OC [facility] Glucose [Mass/Vol] 115 mg/dL High 70 - 99 mg/dL [facility] Interpretation and review of laboratory results Abnormal [facility] POC Sample Type CAPBL [facility] HEMOGLOBIN [id number] By: Dipesh Estevez on 11-09-2022 Average glucose Estimated from glycated hemoglobin (Bld) [Mass/Vol] 126 mg/dL [facility] HbA1c (Bld) [Mass fraction] 6.0 % High 4.7 - 5.6 % [facility] Interpretation and review of laboratory results Abnormal [facility] HEMOGLOBIN A1Con 11-09-2022 Glucose [Mass/Vol] 126 mg/dL Normal [facility] Comment on above: Performed By: #### G AS5L #### [facility] (DEFAULT) [address] [address] Hemoglobin A1C HPLC 6.0 % High 4.7-5.6 [facility] Comment on above: Performed By: #### Hillary AS5L #### [facility] (DEFAULT) [address] [address] HEPATIC FUNCTION PANELon Albumin [Mass/Vol] 3.9 g/dL Normal 3.5-5.0 [facility] Comment on above: Performed By: #### X M #### [facility] (DEFAULT) [address] [place] [address] ALP [Catalytic activity/Vol] 53 U/L Normal 32-126 [facility] Comment on above: Performed By: #### X M #### [facility] (DEFAULT) [address] [place] [address] ALT [Catalytic activity/Vol] 13 U/L Normal 10-52 [facility] Comment on above: Performed By: #### X M #### [facility] (DEFAULT) [address] [address] AST [Catalytic activity/Vol] 22 U/L Normal 10-39 [facility] Comment on above: Performed By: #### X M #### [facility] (DEFAULT) [address] [place] [address] Bilirubin [Mass/Vol] 0.4 mg/dL Normal <1.5 [facility] Comment on above: Performed By: #### X M #### [facility] (DEFAULT) [address] [place] [address] Bilirubin Direct < Normal <0.3 [facility] Comment on above: Performed By: #### X M #### [facility] (DEFAULT) [address] [place] [address] Protein [Mass/Vol] 6.5 g/dL Normal 6.4-8.3 [facility] Comment on above: Performed By: #### X M #### [facility] (DEFAULT) [address] [place] [address] Albumin [Mass/Vol] 3.9 g/dL 3.5 - 5.0 g/dL [facility] ALP [Catalytic activity/Vol] 53 U/L 32 - 126 U/L [facility] ALT [Catalytic activity/Vol] 13 U/L 10 - 52 U/L [facility] AST [Catalytic activity/Vol] 22 U/L 10 - 39 U/L [facility] Bilirubin [Mass/Vol] 0.4 mg/dL NINF - 1.5 mg/dL [facility] Bilirubin.direct [Mass/Vol] mg/dL NINF - 0.3 mg/dL [facility] Protein [Mass/Vol] 6.5 g/dL 6.4 - 8.3 g/dL [facility] IONIZED CALCIUM, WHOLE BLOOD on 11-09-2022 ICA 4.66 mg/dL Normal 4.60-5.30 [facility] Comment on above: Performed By: #### I CA #### [facility] (DEFAULT) [address] [place] [address] IONIZED CALCIUM, WHOLE BLOOD Ordered By: Mesfin Fernandes on 11-09-2022 Calcium.ionized (Bld) [Moles/Vol] 4.66 mg/dL 4.60 - 5.30 mg/dL [facility] Interpretation and review of laboratory results Normal [facility] LIPID PANEL W CALCULATED LDL on 11-09-2022 Calculated LDL Cholesterol 64 mg/dL Normal 0-99 [facility] Comment on above: Result Comment: [<10 0 mg/dL: Optimal] [100-129 mg/dL: Near Optimal] [130-159 mg/dL: Borderline High] [160-189 mg/dL: High] [>189 mg/dL: Very High] Performed By: #### P TT #### [facility] (DEFAULT) [address] [place] [address] Cholesterol [Mass/Vol] 157 mg/dL Normal <200 [facility] Comment on above: Result Comment: [<20 0 mg/dL: Desirable] [200-239 mg/dL: Borderline High] [>239 mg/dL: High] Performed By: #### P TT #### [facility] (DEFAULT) [address] [place] [address] Cholesterol in HDL [Mass/Vol] 53 mg/dL Normal >=40 [facility] Comment on above: Result Comment: [<40 mg/dL: Low (High Risk)] [>59 mg/dL: High (Low Risk)] Performed By: #### P TT #### [facility] (DEFAULT) [address] [place] [address] Non HDL Cholesterol 104 mg/dL Normal <130 [facility] Comment on above: Performed By: #### P TT #### [facility] (DEFAULT) [address] [place] [address] Total Cholesterol/HDL Ratio 3.0 Normal <4.5 [facility] Comment on above: Performed By: #### P TT #### [facility] (DEFAULT) [address] [place] [address] Triglyceride [Mass/Vol] 198 mg/dL High <150 [facility] Comment on above: Result Comment: [<15 0 mg/dL: Desirable] [150-199 mg/dL: Borderline] [200-499 mg/dL: High] [>500 mg/dL: Very High] Performed By: #### P TT #### [facility] (DEFAULT) [address] [place] [address] Cholesterol [Mass/Vol] 157 mg/dL NINF - 200 mg/dL [facility] Cholesterol in HDL [Mass/Vol] 53 mg/dL 40 - PINF mg/dL [facility] Cholesterol in HDL [Mass/Vol] 104 mg/dL NINF - 130 mg/dL [facility] Cholesterol in LDL [Mass/Vol] 64 mg/dL 0 - 99 mg/dL [facility] Cholesterol.total/Choles terol in HDL [Mass ratio] 3.0 {ratio} NINF - 4.5 [facility] Triglyceride [Mass/Vol] 198 mg/dL High NINF - 150 mg/dL [facility] MAGNESIUMon 11-09-2022 Magnesium [Mass/Vol] 2.1 mg/dL Normal 1.6-2.6 [facility] Comment on above: Performed By: #### P TT #### [facility] (DEFAULT) [address] [place] [address] Magnesium [Mass/Vol] 2.1 mg/dL 1.6 - 2 .6 mg/dL [facility] No Panel Informationon 11-09 Interpretation and review of laboratory results Normal [facility] Interpretation and review of laboratory results Abnormal [facility] PHOSPHATE, INORGANICon 11-09 Phosphorous 4.5 mg/dL Normal 2.2-4.6 [facility] Comment on above: Performed By: #### X M #### [facility] (DEFAULT) [address] [place] [address] Phosphate [Mass/Vol] 4.5 mg/dL 2.2 - 4 .6 mg/dL [facility] PREALBUMINon 11-09-2022 Prealbumin [Mass/Vol] 28 mg/dL Normal 17-34 [facility] Comment on above: Performed By: #### U LYTR UCRER #### [facility] (DEFAULT) [address] [place] [address] Interpretation and review of laboratory results Normal [facility] Prealbumin [Mass/Vol] 28 mg/dL 17 - 3 4 mg/dL [facility] PT,INR,PTTon 11-09-2022 aPTT Coag (Bld) [Time] 27.7 s Normal 24.0-34.3 [facility] Comment on above: Performed By: #### U LYMJ UCRER #### [facility] (DEFAULT) [address] [place] [address] INR Coag (PPP) [Relative time] 1.0 {INR} Normal 0.9-1.1 [facility] Comment on above: Performed By: #### U KODY UCRER #### [facility] (DEFAULT) [address] [place] [address] PT Coag (PPP) [Time] 12.8 s Normal 11.9-14.2 [facility] Comment on above: Performed By: #### U LYTR UCRER #### [facility] (DEFAULT) [address] [place] [address] aPTT Coag (PPP) [Time] 27.7 s [facility] INR Coag (Bld) [Relative time] 1.0 {INR} 0.9 - 1.1 [facility] Interpretation and review of laboratory results Normal [facility] PT Coag (PPP) [Time] 12.8 s [facility] PTTon 11-09-2022 aPTT Coag (Bld) [Time] 39.0 s High 24.0-34.3 [facility] Comment on above: Order Comment: [...] instructions. Performed By: #### X M #### [facility] (DEFAULT) [address] [place] [address] aPTT Coag (PPP) [Time] 39.0 s High [facility] Interpretation and review of laboratory results Abnormal [facility] aPTT Coag (Bld) [Time] 31.9 s Normal 24.0-34.3 [facility] Comment on above: Order Comment: Lucho sanchez current type and screen. Performed By: #### X M #### [facility] (DEFAULT) [address] [place] [address] aPTT Coag (PPP) [Time] 31.9 s [facility] Interpretation and review of laboratory results Normal [facility] Portable XR Chest Viewson RADIOLOGY RADIOLOGY [facility] Radiology Study observation (narrative) [facility] Portable XR Chest ViewsOrder ed By: Lamonte Marcus on 11-09-2022 [facility] Work Phone: SCREEN: MRSA/MSSAOrdered By: Sharona Kolb on 11-09-2022 Interpretation and review of laboratory results Normal [facility] Methicillin Resistant S. Aureus By Pcr Negative Negative [facility] Staphylococcus Aureus By Pcr Negative Negative [facility] SCREEN: MRSA/MSSAon 11-09-19 23 Methicillin Resistant S. Aureus By Pcr Negative Normal Negative [facility] Comment on above: Order Comment: Colle [...] by the Clinical Microbiology Laboratory at [facility]. It has not been cleared or approved by the FDA.The laboratory is regulated under CLIA as qualified to perform high-complexity testing. This test is used for clinical purposes. It should not be regarded as investigational or for research. Performed By: #### S CRSB #### [facility] (DEFAULT) [address] [address] Staphylococcus Aureus By Pcr Negative Normal Negative [facility] Comment on above: Order Comment: Colle [...] by the Clinical Microbiology Laboratory at [facility]. It has not been cleared or approved by the FDA.The laboratory is regulated under CLIA as qualified to perform high-complexity testing. This test is used for clinical purposes. It should not be regarded as investigational or for research. Performed By: #### S CRSB #### [facility] (DEFAULT) [address] [place] [address] T3 TOTAL (TRIIODOTHYRONINE)o n 11-09-2022 Interpretation and review of laboratory results Normal [facility] T3 [Mass/Vol] 0.81 ng/mL 0.60 - 1.81 ng/mL [facility] T3 Total (Triiodothyronine) 0.81 ng/mL Normal 0.60-1.81 [facility] Comment on above: Performed By: #### U LYTR, UCRER #### [facility] (DEFAULT) [address] [address] T4 FREEon 11-09-2022 Free T4 [Mass/Vol] 1.05 ng/dL Normal 0.89-1.76 [facility] Comment on above: Performed By: #### INGRID MILLERRER #### [facility] (DEFAULT) [address] [place] [address] Free T4 [Mass/Vol] 1.05 ng/dL 0.89 - 1. 76 ng/dL [facility] Interpretation and review of laboratory results Normal [facility] TROPONIN 1 HOURon 11-09-2022 1 Hour hs-Troponin 220 ng/L High <53 [facility] Comment on above: Order Comment: The r eference range has not been established for random urine specimens. The test result should be integrated into the clinical context for interpretation. Result Comment: Sugg estive of myocardial injury Performed By: #### MARTINE MILLERR #### [facility] (DEFAULT) [address] [place] [id number] Delta hs-Troponin I < Normal <=15 [facility] Comment on above: Order Comment: The r eference range has not been established for random urine specimens. The test result should be integrated into the clinical context for interpretation. Performed By: #### MARTINE MILLERR #### [facility] (DEFAULT) [address] [place] [id number] Delta hs-Troponin I ng/L NINF - 1 5 ng/L [facility] Interpretation and review of laboratory results Abnormal [facility] Troponin I.cardiac High sensitivity method [Mass/Vol] 220 ng/L High NINF - 53 ng/L [facility] TROPONIN I INITIALon 023 hs-Troponin I 237 ng/L High <53 [facility] Comment on above: Order Comment: Colle [...] by the Clinical Microbiology Laboratory at [facility]. It has not been cleared or approved by the FDA.The laboratory is regulated under CLIA as qualified to perform high-complexity testing. This test is used for clinical purposes. It should not be regarded as investigational or for research. Result Comment: Sugg estive of myocardial injury Performed By: #### S CRSB #### [facility] (DEFAULT) [address] [address] TROPONIN I INITIALOrdered By : Geronimo Davies on 11-09-2022 Interpretation and review of laboratory results Abnormal [facility] Troponin I.cardiac High sensitivity method [Mass/Vol] 237 ng/L High NINF - 53 ng/L [facility] TSH W/FT4 REFLEXon 3 TSH 6.028 uIU/mL High 0.550-4.780 [facility] Comment on above: Performed By: #### T SHQR ####[facility] (DEFAULT)[address] [address] Interpretation and review of laboratory results Abnormal [facility] TSH Qn 6.028 m[IU]/L High [facility] TYPE AND SCREENon 11-09-2022 ABO/RH(D) TYPE Positive Normal [facility] Comment on above: Performed By: #### X M #### [facility] (DEFAULT) [address] [address] ABO/RH(D) TYPE Positive [facility] URINALYSIS REFLEX TO CULTURE PERFORMABLEon 11-09-2022 Appearance (U) Clear Normal Clear [facility] Comment on above: Order Comment: For i ndwelling catheters, specimen collection is acceptable on catheter day 1 and 2 only. ? Performed By: #### X M #### [facility] (DEFAULT) [address] [place] [phone] Bacteria ABSENT Normal ABSENT [facility] Comment on above: Order Comment: For i ndwelling catheters, specimen collection is acceptable on catheter day 1 and 2 only. ? Performed By: #### X M #### [facility] (DEFAULT) [address] [place] [id number] Blood Urine Negative Normal Negative [facility] Comment on above: Order Comment: For i ndwelling catheters, specimen collection is acceptable on catheter day 1 and 2 only. ? Performed By: #### X M #### [facility] (DEFAULT) [address] [place] [id number] Color (U) Yellow Normal Yellow [facility] Comment on above: Order Comment: For i ndwelling catheters, specimen collection is acceptable on catheter day 1 and 2 only. ? Performed By: #### X M #### [facility] (DEFAULT) [address] [place] [id number] Glucose Ql (U) Negative Normal Negative [facility] Comment on above: Order Comment: For i ndwelling catheters, specimen collection is acceptable on catheter day 1 and 2 only. ? Performed By: #### X M #### [facility] (DEFAULT) [address] [place] [address] Ketones Ql (U) Negative Normal Negative [facility] Comment on above: Order Comment: For i ndwelling catheters, specimen collection is acceptable on catheter day 1 and 2 only. ? Performed By: #### X M #### [facility] (DEFAULT) [address] [place] [id number] Leukocyte esterase Test strip Ql (U) Negative Normal Negative [facility] Comment on above: Order Comment: For i ndwelling catheters, specimen collection is acceptable on catheter day 1 and 2 only. ? Performed By: #### X M #### [facility] (DEFAULT) [address] [place] [address] Nitrites Urine Negative Normal Negative [facility] Comment on above: Order Comment: For i ndwelling catheters, specimen collection is acceptable on catheter day 1 and 2 only. ? Performed By: #### X M #### [facility] (DEFAULT) [address] [place] [address] pH (U) 6.5 [pH] Normal 5.0-7.0 [facility] Comment on above: Order Comment: For i ndwelling catheters, specimen collection is acceptable on catheter day 1 and 2 only. ? Performed By: #### X M #### [facility] (DEFAULT) [address] [place] [id number] Protein Urine Negative Normal Negative [facility] Comment on above: Order Comment: For i ndwelling catheters, specimen collection is acceptable on catheter day 1 and 2 only. ? Performed By: #### X M #### [facility] (DEFAULT) [address] [place] [id number] RBC Urine 0-2 Normal 0-2 [facility] Comment on above: Order Comment: For i ndwelling catheters, specimen collection is acceptable on catheter day 1 and 2 only. ? Performed By: #### X M #### [facility] (DEFAULT) [address] [place] [address] Specific [place] Urine 1.019 Normal 1.001-1.035 [facility] Comment on above: Order Comment: For i ndwelling catheters, specimen collection is acceptable on catheter day 1 and 2 only. ? Performed By: #### X M #### [facility] (DEFAULT) [address] [place] [address] Squamous/Epithelial Cells ABSENT Normal 1/hpf = 1+, 2-5/hpf = 2+, 0/hpf = 0+, ABSENT [facility] Comment on above: Order Comment: For i ndwelling catheters, specimen collection is acceptable on catheter day 1 and 2 only. ? Performed By: #### X M #### [facility] (DEFAULT) [address] [place] [address] Urobilinogen Urine 0.2 E.U./dL Normal 0.2 E.U/d L, 1.0 E.U/dL [facility] Comment on above: Order Comment: For i ndwelling catheters, specimen collection is acceptable on catheter day 1 and 2 only. ? Performed By: #### X M #### [facility] (DEFAULT) [address] [place] [address] WBC Urine 0-5 Normal 0-5 [facility] Comment on above: Order Comment: For i ndwelling catheters, specimen collection is acceptable on catheter day 1 and 2 only. ? Performed By: #### X M #### [facility] (DEFAULT) [address] [place] [address] Appearance (U) Clear Clear [facility] Bacteria LM Ql (Urine sed) ABSENT ABSENT [facility] Color (U) Yellow Yellow U [facility] Epithelial cells.squamous LM Ql (Urine sed) ABSENT 1/hpf = 1+, 2-5/hpf = 2+, 0/hpf = 0+, ABSENT [facility] Glucose Test strip (U) [Mass/Vol] Negative Negative [facility] Interpretation and review of laboratory results Normal [facility] Ketones (U) [Mass/Vol] Negative Negative [facility] Leukocyte esterase Test strip Ql (U) Negative Negative [facility] Nitrite Ql (U) Negative Negative [facility] pH (U) 6.5 [pH] 5.0 - 7.0 [facility] Protein (U) [Mass/Vol] Negative Negative [facility] RBC (U) [#/Vol] Negative [facility] LM.HPF (Urine sed) [#/Area] 0-2 [facility] Specific gravity (U) [Rel density] 1.019 1.001 - 1.035 [facility] Urobilinogen (U) [Mass/Vol] 0.2 E.U./dL 0.2 E.U/dL, 1.0 E.U/dL [facility] WBC LM.HPF (Urine sed) [#/Area] 0-5 [facility] XR CHEST PORTABLEon 11-09-19 XR CHEST [...] rib, presumably posttraumatic. No other abnormality. Normal [facility] Absolute lymphocyte countOrd ered By: Dr. Win on 11-08-2022 Lymphocytes Auto (Unsp spec) [#/Vol] 4.39 10*3/uL 0.83-4.51 [facility] Basophil percentageOrdered B y: Dr. Win on 11-08-2022 Basophils/100 WBC (Bld) 0.8 % 0-1 [facility] Chloride [Moles/Vol] 106 mmol/L 98-107 [facility] Eosinophils/100 WBC (Bld) 2.4 % 0-5 [facility] Glucose [Mass/Vol] 134 mg/dL 74-106 [facility] Comment on above: Fasting Glucose resu lt greater than or equal to 126 mg/dL suggests DIABETES MELLITUS per A.D.A. criteria. Neutrophils (Bld) [#/Vol] 4.6 10*3/uL 2.0-7.7 [facility] Neutrophils/100 WBC (Bld) 43.8 % 47-70 [facility] Potassium [Moles/Vol] 4.1 mmol/L 3.5-5.1 [facility] Sodium [Moles/Vol] 138 mmol/L 136-145 [facility] WBC (Bld) [#/Vol] 10.5 10*3/uL 4.4-11.0 [facility] Blood erythrocytes count (nu mber/volume)Ordered By: Dr. Win on 11-08-2022 RBC (Bld) [#/Vol] 4.99 10*6/uL 4.6-6.2 [facility] Blood hemoglobin measurement (mass/volume)Ordered By: Dr. Win on 11-08-2022 Hemoglobin (Bld) [Mass/Vol] 14.7 g/dL 13.0-16.5 [facility] Blood lymphocytes/100 leukoc ytesOrdered By: Dr. Win on 11-08-2022 Lymphocytes/100 WBC (Bld) 41.7 % 19-41 [facility] Blood monocytes/100 leukocyt esOrdered By: Dr. Win on 11-08-2022 Monocytes/100 WBC (Bld) 11.0 % 0-10 [facility] Blood platelet mean volumeOr dered By: Dr. Win on 11-08-2022 Platelet mean volume (Bld) [Entitic vol] 10.4 fL 6.2-12.0 [facility] Determination of erythrocyte mean corpuscular volume (MCV)Ordered By: Dr. Win on 11-08-2022 MCV (RBC) [Entitic vol] 87.2 fL 80-94 [facility] Hematocrit Auto (Bld) [Volum e fraction]Ordered By: Dr. Win on 11-08-2022 Hematocrit (Bld) [Volume fraction] 43.5 % 40-54 [facility] INR in Blood by Coagulation assayOrdered By: Dr. Infante on 11-08-2022 INR Coag (Bld) [Relative time] 1.1 {INR} [facility] Laboratory - Chemistry and C hemistry - challengeOrdered By: Dr. Win on 11-08-2022 CO2 [Moles/Vol] 24.0 mmol/L 21.0-32.0 [facility] Urea nitrogen/Creatinine [Mass ratio] 12.2 mg/mg 10-20 [facility] Laboratory - CoagulationOrde red By: Dr. Infante on 11-08-2022 aPTT Coag (Bld) [Time] 29.0 s 24.1-36.[address] [facility] PT Coag (PPP) [Time] 13.6 s 11.7-14.9 [facility] - Hematology and Cell countsOrdered By: Dr. Win on 11-08-2022 Erythrocyte distribution width (RBC) [Entitic vol] 45.6 fL 35.1-43.9 [facility] Erythrocyte distribution width (RBC) [Ratio] 14.3 % 11.6-14.6 [facility] Immature granulocytes/100 WBC (Bld) 0.300 % 0.0-0.9 [facility] Comment on above: IG% - Immature Granu locytes (promyelocytes, myelocytes and metamyelocytes) > 1% indicates that a LEFT SHIFT is Present. MCH (RBC) [Entitic mass] 29.5 pg 27.0-32.0 [facility] Nucleated RBC/100 WBC (Bld) [Ratio] 0 % 0-5 [facility] MCHC Auto (RBC) [Mass/Vol]Or dered By: Dr. Win on 11-08-2022 MCHC (RBC) [Mass/Vol] 33.8 g/dL 32-36 [facility] No Panel InformationOrdered By: Dr. iWn on 11-08-2022 Troponin I High Sensitivity 104 pg/mL 3.0-78.0 [facility] Comment on above: Please Note: New Lynda t Units and Gender Specific Reference Ranges. For more information see Policy Stat Procedure [place] High Sensitivity Troponin (TNIH) and attachments. Estimated Creatinine Clearance Calc 78.86 ml/min [facility] Estimated GFR (MDRD) Amer 80 mL/min >60 [facility] Comment on above: GFR Calc Estimated GFR (MDRD) Non-Af Amer 66 mL/min >60 [facility] Comment on above: Non- GFR Calc Troponin I High Sensitivity 37 pg/mL 3.0-78.0 [facility] Comment on above: Please Note: New Lynda t Units and Gender Specific Reference Ranges. For more information see Policy Stat Procedure [place] High Sensitivity Troponin (TNIH) and attachments. No Panel InformationOrdered By: Dr. Estevez on 11-08-2022 D-Dimer Quantitative (PE/DVT) < 0.27 FEU/ug/m 0.27-0.49 [facility] Comment on above: NORMAL D-Dimer level (<0.50) indicates no DVT or PE. Platelets bldOrdered By: Dr. Win on 11-08-2022 Platelets (Bld) [#/Vol] 242 10*3/uL 150-450 [facility] Serum or plasma calcium jose urement (mass/volume)Ordered By: Dr. Win on 11-08-2022 Calcium [Mass/Vol] 9.5 mg/dL 8.5-10.1 [facility] Serum or plasma creatinine m easurement (mass/volume)Ordered By: Dr. Win on 11-08-2022 Creatinine [Mass/Vol] 1.23 mg/dL 0.70-1.30 [facility] Comment on above: The validity of the calculated GFR & GFRAA in patients over 70 years has not been determined. Clinical correlation is essential. Serum or plasma urea nitroge n measurement (mass/volume)Ordered By: Dr. Win on 11-08-2022 Urea nitrogen [Mass/Vol] 15 mg/dL 05-01 [facility] Thin prep Papanicolaou smear with manual screeningOrdered By: Dr. Win on 11-08-2022 Thin prep Papanicolaou smear with manual screening 8 02-26 [facility] Whole blood hemoglobin A1c/t otal hemoglobin ratio (mass fraction)Ordered By: Dr. Estevez on 11-08-2022 HbA1c (Bld) [Mass fraction] 5.9 % 3.8-5.6 [facility] Comment on above: Normal < 5.7 % Predi abetic 5.7 - 6.4 % Diabetic >or= 6.5 % Please note range changes. Vital Signs Date Time Vital Sign Value Performing Clinician Facility 06-01-2025 13:04-0400 Body height 203.76 cm Svitlana Becerril MD Work Phone: [facility] 06-01-2025 13:04-0400 Body mass index (BMI) [Ratio] 25.1 kg/m2 Svitlana Becerril MD Work Phone: [facility] 06-01-2025 13:04-0400 Body weight 104.32 kg Svitlana Becerril MD Work Phone: [facility] 05-19-2025 16:21-0400 Body temperature 97.2 [degF] Svitlana Becerril MD Work Phone: [facility] 05-19-2025 16:21-0400 Diastolic blood pressure 79 mm[Hg] Svitlana Becerril MD Work Phone: [facility] 05-19-2025 16:21-0400 Heart rate 90 /min Svitlana Becerril MD Work Phone: [facility] 05-19-2025 16:21-0400 Respiratory rate 16 /min Svitlana Becerril MD Work Phone: [facility] 05-19-2025 16:21-0400 SaO2% (BldA) [Mass fraction] 99 % Svitlana Becerril MD Work Phone: [facility] 05-19-2025 16:21-0400 Systolic blood pressure 121 mm[Hg] Svitlana Becerril MD Work Phone: [facility] 05-19-2025 12:00-0400 Inhaled oxygen flow rate 4 L/min Svitlana Becerril MD Work Phone: [facility] 05-19-2025 06:48-0400 Body height 203.76 cm Svitlana Becerril MD Work Phone: [facility] 05-19-2025 06:48-0400 Body mass index (BMI) [Ratio] 26.4 kg/m2 Svitlana Becerril MD Work Phone: [facility] 05-19-2025 06:48-0400 Body weight 110 kg Svitlana Becerril MD Work Phone: [facility] 05-14-2025 10:14-0400 Body height 182.88 cm Svitlana Becerril MD Work Phone: [facility] 05-14-2025 10:14-0400 Body mass index (BMI) [Ratio] 31.1 kg/m2 Svitlana Becerril MD Work Phone: [facility] 05-14-2025 10:14-0400 Body weight 104.32 kg Svitlana Becerril MD Work Phone: [facility] 05-14-2025 10:14-0400 Diastolic blood pressure 87 mm[Hg] Svitlana Becerril MD Work Phone: [facility] 05-14-2025 10:14-0400 Heart rate 82 /min Svitlana Becerril MD Work Phone: [facility] 05-14-2025 10:14-0400 Respiratory rate 16 /min Svitlana Becerril MD Work Phone: [facility] 05-14-2025 10:14-0400 Systolic blood pressure 123 mm[Hg] Svitlana Becerril MD Work Phone: [facility] 02-06-2025 08:04-0400 Body height 182.88 cm Svitlana Becerril MD Work Phone: [facility] 02-06-2025 08:04-0400 Body mass index (BMI) [Ratio] 32 kg/m2 Svitlana Becerril MD Work Phone: [facility] 02-06-2025 08:04-0400 Body weight 107.1 kg Svitlana Becerril MD Work Phone: [facility] 10-31-2024 09:20-0500 Body height 182.[address] Denys Cuello MD Work Phone: [facility] 10-31-2024 09:20-0500 Body mass index (BMI) [Ratio] 31.6 kg/m2 Dr. Denys Cuello MD Work Phone: [facility] 10-31-2024 09:20-0500 Body weight 105.[address] Denys Cuello MD Work Phone: [facility] 09-29-2024 16:56-0500 Body mass index (BMI) [Ratio] 31.4 kg/m2 Dr. Denys Cuello MD Work Phone: [facility] 09-29-2024 16:56-0500 Body temperature 98.4 [degF] Dr. Denys Cuello MD Work Phone: [facility] 09-29-2024 16:56-0500 Body weight 105.[address] Denys Cuello MD Work Phone: [facility] 09-29-2024 16:56-0500 Diastolic blood pressure 102 mm[Hg] Dr. Denys Cuello MD Work Phone: [facility] 09-29-2024 16:56-0500 Heart rate 99 /min Dr. Denys Cuello MD Work Phone: [facility] 09-29-2024 16:56-0500 Respiratory rate 18 /min Dr. Denys Cuello MD Work Phone: [facility] 09-29-2024 16:56-0500 SaO2% (BldA) [Mass fraction] 99 % Dr. Denys Cuello MD Work Phone: [facility] 09-29-2024 16:56-0500 Systolic blood pressure 144 mm[Hg] Dr. Denys Cuello MD Work Phone: [facility] 09-29-2024 16:24-0500 Body temperature 97.9 [degF] Penny Soto [employer]YS[employer] FACULTY MEMBER.CONCRETE ENGINEERING TECHNICIAN Work Phone: [facility] 09-29-2024 16:24-0500 Body weight 105.5 kg Penny Soto PHYSICS FACULTY MEMBER.CONCRETE ENGINEERING TECHNICIAN Work Phone: [facility] 09-29-2024 16:24-0500 Diastolic blood pressure 82 mm[Hg] Penny Soto PHYSICS FACULTY MEMBER.CONCRETE ENGINEERING TECHNICIAN Work Phone: [facility] 09-29-2024 16:24-0500 Heart rate 97 /min Penny Soto PHYSICS FACULTY MEMBER.CONCRETE ENGINEERING TECHNICIAN Work Phone: [facility] 09-29-2024 16:24-0500 Respiratory rate 16 /min Penny Soto PHYSICS FACULTY MEMBER.CONCRETE ENGINEERING TECHNICIAN Work Phone: [facility] 09-29-2024 16:24-0500 SaO2% (BldA) [Mass fraction] 98 % Penny Soto PHYSICS FACULTY MEMBER.CONCRETE ENGINEERING TECHNICIAN Work Phone: [facility] 09-29-2024 16:24-0500 Systolic blood pressure 124 mm[Hg] Penny Soto PHYSICS FACULTY MEMBER.CONCRETE ENGINEERING TECHNICIAN Work Phone: [facility] 07-15-2024 13:25-0400 Body temperature 98.01 [degF] Penny Soto PHYSICS FACULTY MEMBER.CONCRETE ENGINEERING TECHNICIAN Work Phone: [facility] 07-15-2024 13:25-0400 Body weight 101.9 kg Penny Soto PHYSICS FACULTY MEMBER.CONCRETE ENGINEERING TECHNICIAN Work Phone: [facility] 07-15-2024 13:25-0400 Diastolic blood pressure 78 mm[Hg] Penny Soto PHYSICS FACULTY MEMBER.CONCRETE ENGINEERING TECHNICIAN Work Phone: [facility] 07-15-2024 13:25-0400 Heart rate 82 /min Penny Soto PHYSICS FACULTY MEMBER.CONCRETE ENGINEERING TECHNICIAN Work Phone: [facility] 07-15-2024 13:25-0400 Respiratory rate 16 /min Pneny Soto PHYSICS FACULTY MEMBER.CONCRETE ENGINEERING TECHNICIAN Work Phone: [facility] 07-15-2024 13:25-0400 SaO2% (BldA) [Mass fraction] 98 % Penny Soto PHYSICS FACULTY MEMBER.CONCRETE ENGINEERING TECHNICIAN Work Phone: [facility] 07-15-2024 13:25-0400 Systolic blood pressure 112 mm[Hg] Penny Soto PHYSICS FACULTY MEMBER.CONCRETE ENGINEERING TECHNICIAN Work Phone: [facility] 01-03-2024 15:33-0400 Body height 182.[address] Denys Cuello Work Phone: [facility] 01-03-2024 15:33-0400 Body mass index (BMI) [Ratio] 29 kg/m2 Dr. Denys Cuello Work Phone: [facility] 01-03-2024 15:33-0400 Body weight 97.[address] Denys Cuello Work Phone: [facility] 01-03-2024 15:33-0400 Diastolic blood pressure 83 mm[Hg] Dr. Denys Cuello Work Phone: [facility] 01-03-2024 15:33-0400 Heart rate 83 /min Dr. Denys Cuello Work Phone: [facility] 01-03-2024 15:33-0400 Respiratory rate 18 /min Dr. Denys Cuello Work Phone: [facility] 01-03-2024 15:33-0400 SaO2% (BldA) [Mass fraction] 98 % Dr. Denys Cuello Work Phone: [facility] 01-03-2024 15:33-0400 Systolic blood pressure 130 mm[Hg] Dr. Denys Cuello Work Phone: [facility] 11-07-2023 16:10-0500 Body mass index (BMI) [Ratio] 27.8 kg/m2 Dr. Denys Cuello Work Phone: [facility] 11-07-2023 16:10-0500 Body temperature 97.6 [degF] Dr. Denys Cuello Work Phone: [facility] 11-07-2023 16:10-0500 Body weight 92.[address] Denys Cuello Work Phone: [facility] 11-07-2023 16:10-0500 Diastolic blood pressure 80 mm[Hg] Dr. Denys Cuello Work Phone: [facility] 11-07-2023 16:10-0500 Heart rate 94 /min Dr. Denys Cuello Work Phone: [facility] 11-07-2023 16:10-0500 Respiratory rate 14 /min Dr. Denys Cuello Work Phone: [facility] 11-07-2023 16:10-0500 SaO2% (BldA) [Mass fraction] 96 % Dr. Denys Cuello Work Phone: [facility] 11-07-2023 16:10-0500 Systolic blood pressure 120 mm[Hg] Dr. Denys Cuello Work Phone: [facility] 10-10-2023 15:53-0500 Body height 182.[address] Denys Culelo Work Phone: [facility] 10-10-2023 15:53-0500 Body mass index (BMI) [Ratio] 27.9 kg/m2 Dr. Denys Cuello Work Phone: [facility] 10-10-2023 15:53-0500 Body temperature 97.6 [degF] Dr. Denys Cuello Work Phone: [facility] 10-10-2023 15:53-0500 Body weight 93.[address] Denys Cuello Work Phone: [facility] 10-10-2023 15:53-0500 Diastolic blood pressure 80 mm[Hg] Dr. Denys Cuello Work Phone: [facility] 10-10-2023 15:53-0500 Heart rate 80 /min Dr. Denys Cuello Work Phone: [facility] 10-10-2023 15:53-0500 Respiratory rate 14 /min Dr. Denys Cuello Work Phone: [facility] 10-10-2023 15:53-0500 SaO2% (BldA) [Mass fraction] 96 % Dr. Denys Cuello Work Phone: [facility] 10-10-2023 15:53-0500 Systolic blood pressure 120 mm[Hg] Dr. Denys Cuello Work Phone: [facility] 09-19-2023 15:58-0500 Body mass index (BMI) [Ratio] 28.6 kg/m2 Dr. Denys Cuello Work Phone: [facility] 09-19-2023 15:58-0500 Body temperature 98.4 [degF] Dr. Denys Cuello Work Phone: [facility] 09-19-2023 15:58-0500 Body weight 95.[address] Denys Cuello Work Phone: [facility] 09-19-2023 15:58-0500 Diastolic blood pressure 80 mm[Hg] Dr. Denys Cuello Work Phone: [facility] 09-19-2023 15:58-0500 Heart rate 82 /min Dr. Denys Cuello Work Phone: [facility] 09-19-2023 15:58-0500 Respiratory rate 16 /min Dr. Denys Cuello Work Phone: [facility] 09-19-2023 15:58-0500 SaO2% (BldA) [Mass fraction] 97 % Dr. Denys Cuello Work Phone: [facility] 09-19-2023 15:58-0500 Systolic blood pressure 122 mm[Hg] Dr. Denys Cuello Work Phone: [facility] 08-30-2023 15:19-0500 Body height 182.[address] Denys Cuello Work Phone: [facility] 08-30-2023 15:16-0500 Body mass index (BMI) [Ratio] 27.8 kg/m2 Dr. Denys Cuello Work Phone: [facility] 08-30-2023 15:16-0500 Body weight 92.[address] Denys Cuello Work Phone: [facility] 08-30-2023 15:16-0500 Diastolic blood pressure 86 mm[Hg] Dr. Denys Cuello Work Phone: [facility] 08-30-2023 15:16-0500 Heart rate 75 /min Dr. Denys Cuello Work Phone: [facility] 08-30-2023 15:16-0500 Respiratory rate 18 /min Dr. Denys Cuello Work Phone: [facility] 08-30-2023 15:16-0500 SaO2% (BldA) [Mass fraction] 98 % Dr. Denys Cuello Work Phone: [facility] 08-30-2023 15:16-0500 Systolic blood pressure 132 mm[Hg] Dr. Denys Cuello Work Phone: [facility] 05-01-2023 12:48-0400 Body temperature 97.39 [degF] Patel Marcus PHYSICS FACULTY MEMBER.CONCRETE ENGINEERING TECHNICIAN Work Phone: [facility] 05-01-2023 12:48-0400 Body weight 90.27 kg Patel Amrit PHYSICS FACULTY MEMBER.CONCRETE ENGINEERING TECHNICIAN Work Phone: [facility] 05-01-2023 12:48-0400 Diastolic blood pressure 74 mm[Hg] Patel Marcus PHYSICS FACULTY MEMBER.CONCRETE ENGINEERING TECHNICIAN Work Phone: [facility] 05-01-2023 12:48-0400 Heart rate 84 /min Patel Amrit PHYSICS FACULTY MEMBER.CONCRETE ENGINEERING TECHNICIAN Work Phone: [facility] 05-01-2023 12:48-0400 Respiratory rate 16 /min Patel Amrit PHYSICS FACULTY MEMBER.CONCRETE ENGINEERING TECHNICIAN Work Phone: [facility] 05-01-2023 12:48-0400 SaO2% (BldA) [Mass fraction] 98 % Patel Marcus PHYSICS FACULTY MEMBER.CONCRETE ENGINEERING TECHNICIAN Work Phone: [facility] 05-01-2023 12:48-0400 Systolic blood pressure 122 mm[Hg] Patel Marcus PHYSICS FACULTY MEMBER.CONCRETE ENGINEERING TECHNICIAN Work Phone: [facility] 03-30-2023 08:25-0400 Body temperature 96.9 [degF] Dr. Denys Cuello Work Phone: [facility] 03-30-2023 08:25-0400 Diastolic blood pressure 88 mm[Hg] Dr. Denys Cuello Work Phone: [facility] 03-30-2023 08:25-0400 Heart rate 76 /min Dr. Denys Cuello Work Phone: [facility] 03-30-2023 08:25-0400 Respiratory rate 16 /min Dr. Denys Cuello Work Phone: [facility] 03-30-2023 08:25-0400 SaO2% (BldA) [Mass fraction] 100 % Dr. Denys Cuello Work Phone: [facility] 03-30-2023 08:25-0400 Systolic blood pressure 119 mm[Hg] Dr. Denys Cuello Work Phone: [facility] 03-30-2023 07:27-0400 Body height 182.[address] Denys Cuello Work Phone: [facility] 03-30-2023 07:27-0400 Body mass index (BMI) [Ratio] 26.3 kg/m2 Dr. Denys Cuello Work Phone: [facility] 03-30-2023 07:27-0400 Body weight [address] Denys Cuello Work Phone: [facility] 03-02-2023 14:52-0400 Body mass index (BMI) [Ratio] 26.6 kg/m2 Dr. Denys Cuello Work Phone: [facility] 03-02-2023 14:52-0400 Body weight 88.[address] Denys Cuello Work Phone: [facility] 03-02-2023 14:52-0400 Diastolic blood pressure 77 mm[Hg] Dr. Denys Cuello Work Phone: [facility] 03-02-2023 14:52-0400 Heart rate 82 /min Dr. Denys Cuello Work Phone: [facility] 03-02-2023 14:52-0400 Respiratory rate 18 /min Dr. Denys Cuello Work Phone: [facility] 03-02-2023 14:52-0400 SaO2% (BldA) [Mass fraction] 98 % Dr. Denys Cuello Work Phone: [facility] 03-02-2023 14:52-0400 Systolic blood pressure 121 mm[Hg] Dr. Denys Cuello Work Phone: [facility] 02-23-2023 09:00-0400 Body temperature 97.1 [degF] Dr. Denys Cuello Work Phone: [facility] 02-23-2023 09:00-0400 Diastolic blood pressure 94 mm[Hg] Dr. Denys Cuello Work Phone: [facility] 02-23-2023 09:00-0400 Heart rate 77 /min Dr. Denys Cuello Work Phone: [facility] 02-23-2023 09:00-0400 Respiratory rate 12 /min Dr. Denys Cuello Work Phone: [facility] 02-23-2023 09:00-0400 SaO2% (BldA) [Mass fraction] 99 % Dr. Denys Cuello Work Phone: [facility] 02-23-2023 09:00-0400 Systolic blood pressure 122 mm[Hg] Dr. Denys Cuello Work Phone: [facility] 02-19-2023 08:19-0400 Body mass index (BMI) [Ratio] 26.7 kg/m2 Dr. Denys Cuello Work Phone: [facility] 02-19-2023 08:19-0400 Body temperature 97.4 [degF] Dr. Denys Cuello Work Phone: [facility] 02-19-2023 08:19-0400 Body weight 89.[address] Denys Cuello Work Phone: [facility] 02-19-2023 08:19-0400 Diastolic blood pressure 85 mm[Hg] Dr. Denys Cuello Work Phone: [facility] 02-19-2023 08:19-0400 Heart rate 75 /min Dr. Denys Cuello Work Phone: [facility] 02-19-2023 08:19-0400 Respiratory rate 18 /min Dr. Denys Cuello Work Phone: [facility] 02-19-2023 08:19-0400 SaO2% (BldA) [Mass fraction] 96 % Dr. Denys Cuello Work Phone: [facility] 02-19-2023 08:19-0400 Systolic blood pressure 120 mm[Hg] Dr. Denys Cuello Work Phone: [facility] 02-05-2023 13:06-0400 Body height 182.[address] Denys Cuello Work Phone: [facility] 02-05-2023 13:06-0400 Body mass index (BMI) [Ratio] 26.4 kg/m2 Dr. Denys Cuello Work Phone: [facility] 02-05-2023 13:06-0400 Body temperature 95.5 [degF] Dr. Denys Cuello Work Phone: [facility] 02-05-2023 13:06-0400 Body weight 88.[address] Denys Cuello Work Phone: [facility] 02-05-2023 13:06-0400 Diastolic blood pressure 86 mm[Hg] Dr. Denys Cuello Work Phone: [facility] 02-05-2023 13:06-0400 Heart rate 106 /min Dr. Denys Cuello Work Phone: [facility] 02-05-2023 13:06-0400 Respiratory rate 18 /min Dr. Denys Cuello Work Phone: [facility] 02-05-2023 13:06-0400 SaO2% (BldA) [Mass fraction] 96 % Dr. Denys Cuello Work Phone: [facility] 02-05-2023 13:06-0400 Systolic blood pressure 138 mm[Hg] Dr. Denys Cuello Work Phone: [facility] 12-08-2022 10:28-0500 Body height 182.[address] Denys Cuello Work Phone: [facility] 12-08-2022 10:28-0500 Body mass index (BMI) [Ratio] 26 kg/m2 Dr. Denys Cuello Work Phone: [facility] 12-08-2022 10:28-0500 Body weight 87.[address] Denys Cuello Work Phone: [facility] 12-08-2022 10:28-0500 Diastolic blood pressure 84 mm[Hg] Dr. Denys Cuello Work Phone: [facility] 12-08-2022 10:28-0500 Heart rate 78 /min Dr. Denys Cuello Work Phone: [facility] 12-08-2022 10:28-0500 Respiratory rate 18 /min Dr. Denys Cuello Work Phone: [facility] 12-08-2022 10:28-0500 SaO2% (BldA) [Mass fraction] 98 % Dr. Denys Cuello Work Phone: [facility] 12-08-2022 10:28-0500 Systolic blood pressure 125 mm[Hg] Dr. Denys Cuello Work Phone: [facility] 12-06-2022 13:11-0500 Body mass index (BMI) [Ratio] 26.2 kg/m2 Dr. Deyns Cuello Work Phone: [facility] 12-06-2022 13:11-0500 Body temperature 97.8 [degF] Dr. Denys Cuello Work Phone: [facility] 12-06-2022 13:11-0500 Body weight 87.[address] Denys Cuello Work Phone: [facility] 12-06-2022 13:11-0500 Diastolic blood pressure 80 mm[Hg] Dr. Denys Cuello Work Phone: [facility] 12-06-2022 13:11-0500 Heart rate 75 /min Dr. Denys Cuello Work Phone: [facility] 12-06-2022 13:11-0500 Respiratory rate 16 /min Dr. Denys Cuello Work Phone: [facility] 12-06-2022 13:11-0500 SaO2% (BldA) [Mass fraction] 99 % Dr. Denys Cuello Work Phone: [facility] 12-06-2022 13:11-0500 Systolic blood pressure 118 mm[Hg] Dr. Denys Cuello Work Phone: [facility] 11-18-2022 07:50-0500 Body temperature 97.3 [degF] Derek Jara MD, PhD Work Phone: [facility] 11-18-2022 07:50-0500 Diastolic blood pressure 81 mm[Hg] Derek Jara MD, PhD Work Phone: [facility] 11-18-2022 07:50-0500 Heart rate 79 /min Derek Jara MD, PhD Work Phone: [facility] 11-18-2022 07:50-0500 Respiratory rate 16 /min Derek Jara MD, PhD Work Phone: [facility] 11-18-2022 07:50-0500 SaO2% (BldA) [Mass fraction] 93 % Derek Jara MD, PhD Work Phone: [facility] 11-18-2022 07:50-0500 Systolic blood pressure 119 mm[Hg] Derek Jara MD, PhD Work Phone: [facility] 11-18-2022 02:50-0500 Body mass index (BMI) [Ratio] 25.98 kg/m2 Derek Jara MD, PhD Work Phone: [facility] 11-18-2022 02:50-0500 Body weight 86.91 kg Derek Jara MD, PhD Work Phone: [phone] [place] [address] 11-09-2022 00:06-0500 Body height 182.9 cm Derek Jara MD, PhD Work Phone: [phone] [place] [address] 11-08-2022 20:50-0500 Heart rate 75 /min Dr. Denys Cuello Work Phone: [facility] 11-08-2022 15:07-0500 Diastolic blood pressure 91 mm[Hg] Dr. Denys Cuello Work Phone: [facility] 11-08-2022 15:07-0500 Systolic blood pressure 134 mm[Hg] Dr. Denys Cuello Work Phone: [facility] 11-08-2022 14:30-0500 Respiratory rate 16 /min Dr. Denys Cuello Work Phone: [facility] 11-08-2022 14:30-0500 SaO2% (BldA) [Mass fraction] 96 % Dr. Denys Cuello Work Phone: [facility] 11-08-2022 13:51-0500 Body height 182.[address] Denys Cuello Work Phone: [facility] 11-08-2022 13:51-0500 Body weight 89.[address] Denys Cuello Work Phone: [facility] 11-08-2022 10:15-0500 Body temperature 96.2 [degF] [facility] 11-08-2022 10:15-0500 Diastolic blood pressure 95 mm[Hg] [facility] 11-08-2022 10:15-0500 Heart rate 74 /min [facility] 11-08-2022 10:15-0500 Respiratory rate 16 /min [facility] 11-08-2022 10:15-0500 SaO2% (BldA) [Mass fraction] 95 % [facility] 11-08-2022 10:15-0500 Systolic blood pressure 135 mm[Hg] [facility] 11-08-2022 10:12-0500 Body mass index (BMI) [Ratio] 26.8 kg/m2 Dr. Denys Cuello Work Phone: [facility] 11-08-2022 07:37-0500 Body height 182.88 cm [facility] 11-08-2022 07:37-0500 Body mass index (BMI) [Ratio] 28.5 kg/m2 [facility] 11-08-2022 07:37-0500 Body weight 95.3 kg [facility] Encounters Encounter Date Encounter Type Care Provider Facility Start: 06-29-2025 End: 06-29-[address] Velasquez Diop MD -[facility] Start: 06-29-2025 End: 06-29-2025 ambulatory Svitlana Becerril MD Work Phone: -[facility] Start: 06-17-2025 ambulatory Neville Mccall Facility :[facility] Start: 06-17-[address] Neville urbina DO -Physical Therapy Work Phone: Start: 06-01-2025 End: 06-01-2025 Patient encounter procedure Erin PALACIOSC -[facility] Work Phone: Start: 06-01-2025 End: 06-01-2025 ambulatory Svitlana Becerril MD Work Phone: -[facility] Start: 05-22-[address] Neville urbina DO -Physical Therapy Work Phone: Start: 05-19-2025 Non-patient / Non-visit Dr. Neville chan DO -[facility] Start: 05-19-2025 End: 05-19-2025 Admission to same day surgery center Dr. Neville Mccall DO -[facility] Start: 05-19-2025 End: 05-19-2025 ambulatory Svitlana Becerril MD Work Phone: -[facility] Start: 05-14-2025 End: 05-14-2025 Patient encounter procedure Andre Galeas HEATING TECHNICIAN-C -[facility] Work Phone: Start: 05-14-2025 End: 05-14-2025 Patient encounter status Andre Galeas HEATING TECHNICIAN-C [facility] Comment on above: Right hip replacemen t scheduled for May 19 Start: 05-14-2025 End: 05-14-2025 ambulatory Svitlana Becerril MD Work Phone: -[facility] Start: 05-13-2025 End: 05-14-2025 ambulatory Svitlana Becerril MD Work Phone: -Cat Scan [facility] Start: 05-13-2025 End: 05-13-[address] Neville Mccall DO -Cat Scan [facility] Work Phone: Start: 05-12-2025 End: 05-13-2025 ambulatory Svitlana Becerril Facility:[facility] Start: 05-12-2025 End: 05-12-2025 Non-patient / Non-visit Dr. Velasquez Diop MD -[facility] Work Phone: Start: 2025 End: 2025 ambulatory Svitlana Becerril MD Work Phone: -[facility] Start: 2025 End: [address] Velasquez Diop MD -[facility] Start: 03-16-2025 End: 03-16-2025 ambulatory Svitlana Becerril MD Work Phone: [facility] Work Phone: Start: 03-16-2025 End: 03-16-[address] Svitlana Becerril MD -[facility] Work Phone: Start: 03-16-2025 End: 03-16-2025 ambulatory Svitlana Becerril Facility:[facility] Start: 02-06-2025 End: 02-06-[address] Neville Mccall DO -[facility] Work Phone: Start: 02-06-2025 End: 02-06-2025 ambulatory Svitlana Becerril Facility:[facility] Start: 01-09-2025 End: 01-09-[address] Neville Mccall DO -[facility] Work Phone: Start: 01-09-2025 End: 01-09-2025 ambulatory Svitlana Becerril Facility:[facility] Start: 12-26-2024 End: 12-26-[address] Denys Cuello MD Work Phone: [facility] Work Phone: Start: 12-26-2024 End: 12-26-[address] [facility] Start: 12-26-2024 End: 12-26-2024 ambulatory Timmy Manzano Facility:[facility] Start: 10-31-2024 End: 10-31-[address] Neville Mccall DO [facility] Work Phone: Start: 10-31-2024 End: 10-31-2024 ambulatory Chalhéctor Becerril Facility:[facility] Start: 10-31-2024 End: 10-31-2024 ambulatory Lalito Zamora Facility:[facility] Start: 10-20-2024 End: 10-20-[address] Svitlana Becerril MD -[facility], [place] Work Phone: Start: 10-20-2024 End: 10-20-2024 ambulatory Svitlana Becerril Facility:[facility] Start: 09-30-2024 End: 09-30-2024 Emergency department patient visit [facility] Start: 09-29-2024 End: 09-29-2024 Emergency department patient visit Dr. Gianni Hernandez DO -Emergency Department Work Phone: Start: 09-29-2024 End: 09-29-2024 ambulatory DENYS CUELLO Facility:[facility] Start: 09-29-2024 End: 09-29-2024 Patient encounter procedure Penny Soto PHYSICS FACULTY MEMBER.CONCRETE ENGINEERING TECHNICIAN Work Phone: [facility] Comment on above: Elbow swelling, left (Primary Dx) Start: 07-24-2024 End: 07-24-2024 ambulatory Lalito Zamora Facility:[facility] Start: 07-15-2024 End: 07-15-2024 Telephone encounter Penny Soto PHYSICS FACULTY MEMBER.CONCRETE ENGINEERING TECHNICIAN Work Phone: [facility] Comment on above: Results Start: 07-15-2024 End: 07-15-2024 Subsequent hospital visit by physician [facility] Work Phone: Radiology Comment on above: Foot pain, left [[id number] .[id number]] Start: 07-15-2024 End: 07-15-2024 ambulatory DENYS CUELLO Facility:[facility] Start: 07-15-2024 End: 07-15-2024 Patient encounter procedure Penny Soto PHYSICS FACULTY MEMBER.CONCRETE ENGINEERING TECHNICIAN Work Phone: [facility] Comment on above: Foot pain, left (Ceci amanda Dx) Start: 07-07-2024 ambulatory Denys Barron ty:[facility] Start: 01-25-2024 End: 01-25-[address] Denys Cuello Work Phone: [facility] Work Phone: Start: 01-25-2024 End: 01-25-[address] Denys Cuello Work Phone: [facility] Work Phone: Start: 01-03-2024 End: 01-03-[address] Denys Cuello Work Phone: [facility] Work Phone: Start: 11-07-2023 End: 11-07-[address] Denys Cuello Work Phone: [facility] Work Phone: Start: 10-16-2023 Non-patient / Non-visit Dr. Eloisa Cuello Work Phone: [facility] Work Phone: Start: 10-16-2023 Non-patient / Non-visit Dr. Eloisa Cuello Work Phone: [facility] Start: 10-11-2023 End: 10-11-[address] Denys Cuello Work Phone: [facility] Work Phone: Start: 10-11-2023 End: 10-11-[address] [facility] Work [facility] Start: 10-10-2023 End: 10-10-[address] Denys Cuello Work Phone: [facility] Work Phone: Start: 09-19-2023 End: 09-19-[address] Denys Cuello Work Phone: [facility] Work Phone: Start: 08-30-2023 End: 08-30-[address] Denys Cuello Work Phone: [facility] Work Phone: Start: 08-30-2023 End: 08-30-[address] Denys Cuello Work Phone: [facility] Work Phone: Start: 05-01-2023 End: 05-01-2023 Subsequent hospital visit by physician [facility] Work Phone: Radiology Comment on above: Acute right ankle pa in [M25.571] Start: 05-01-2023 End: 05-01-2023 Patient encounter procedure Patel Marcus APRN.CNP Work Phone: [facility] Comment on above: Acute right ankle pa in (Primary Dx) Start: 03-30-2023 Non-patient / Non-visit Dr. Eloisa Cuello Work Phone: [facility] Start: 03-30-2023 End: 03-30-2023 Admission to same day surgery center Dr. Denys Cuello Work Phone: [facility]-Endoscopy Start: 03-30-2023 End: 03-30-[address] Denys Cuello Work Phone: [facility] Work Phone: Start: 03-02-2023 End: 03-02-[address] Denys Cuello Work Phone: [facility] Start: 02-23-2023 End: 02-23-[address] Denys Cuello Work Phone: [facility] Start: 02-19-2023 End: 02-19-[address] Denys Cuello Work Phone: [facility] Start: 02-05-2023 End: 02-05-[address] Denys Cuello Work Phone: [facility] Work Phone: Start: 02-05-2023 End: 02-05-[address] Denys Cuello Work Phone: [facility] Start: 12-29-2022 End: 12-29-[address] Denys Cuello Work Phone: [facility] Work Phone: Start: 12-29-2022 End: 12-29-[address] Denys Cuello Work Phone: [facility]-Pulmonary Services/Neurology Start: 12-14-2022 ambulatory DEREK JARA Facilit y:[facility] Start: 12-14-2022 ambulatory DEREK JARA Facilit y:[facility] Start: 12-14-2022 End: 12-14-2022 Subsequent hospital visit by physician Derek Jara MD, PhD Work Phone: [facility] Comment on above: Arrived Start: 12-08-2022 Non-patient / Non-visit Dr. Eloisa Cuello Work Phone: [facility] Start: 12-08-2022 End: 12-08-[address] Denys Cuello Work Phone: [facility] Start: 12-06-2022 End: 12-06-[address] Denys Cuello Work Phone: [facility] Work Phone: Start: 12-06-2022 End: 12-06-[address] Denys Cuello Work Phone: [facility] Start: 11-29-2022 ambulatory DEREK A ESTEFANI Facilit y:[facility] Start: 11-21-2022 Non-patient / Non-visit Dr. Eloisa Cuello Work Phone: [facility] Start: 11-09-2022 End: 11-18-2022 Evaluation and management of inpatient DEREK JARA Facility:[facility] Start: 11-08-2022 End: 11-18-2022 Evaluation and management of inpatient Derek Jara MD, PhD Work Phone: Start: 11-08-2022 Non-patient / Non-visit Dr. Eloisa Cuello Work Phone: [facility] Start: 11-08-2022 Non-patient / Non-visit Dr. Eloisa Cuello Work Phone: [facility] Start: 11-08-2022 End: 11-08-2022 Evaluation and management of inpatient [facility]-Progressive Care Unit Start: 11-08-2022 End: 11-08-[address] Denys Cuello Work Phone: [facility] Work Phone: Procedures Date Procedure Procedure Detail Performing Clinician Start: 05-19-2025 Plain X-ray of hip Vaelnte Becerril MD Work Phone: Start: 05-19-2025 Total replacement of hip Svitlana Becerril MD Work Phone: Start: 05-14-2025 Methicillin resistan t Staphylococcus aureus screening test Svitlana Becerril MD Work Phone: Start: 05-14-2025 Prostate specific an tigen measurement Svitlana Becerril MD Work Phone: Comment on above: This test was perfor med using the [employer] tPSA method. Measured values of a patient sample can vary depending on the testing procedure used. PSA values determined on patient samples by different testing procedures cannot be used interchangeably. If there is a change in PSA assays while monitoring therapy, sequential testing should be performed to confirm baseline values. Start: 05-14-2025 Serum fructosamine measurement Svitlana Becerril MD Work Phone: Comment on above: Published reference interval for apparently healthysubjects between age 20 and 60 is 205 - 285 umol/L and in apoorly controlled diabetic population is 228 - 563 umol/Lwith a mean of 396 umol/L.Performed at: [address] [id number] Director: Aleksey Duran PhD, Phone: [phone] Start: 05-13-2025 MRI of lower extremity Svitlana [...] foot complete minimum 3 views Penny Soto PHYSICS FACULTY MEMBER.CONCRETE ENGINEERING TECHNICIAN Work Phone: Start: 01-25-2024 CT of chest without contrast Dr. Denys Cuello Work Phone: Start: 10-11-2023 Radionuclide imaging of perfusion of myocardium under exercise stress Dr. Denys Cuello Work Phone: Start: 08-30-2023 Plain chest X-ray Dr. Bryon Cuello Work Phone: Start: 05-01-2023 Radex ankle complete minimum 3 views Patel Marcus APRN.CONCRETE ENGINEERING TECHNICIAN Work Phone: Start: 03-30-[address] Dayo Cuello Work Phone: Start: 12-14-2022 Radiologic exam ches t 2 views Jamila Purcell 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 Work Phone: Start: 11-29-2022 Follow-up visit Follow-up DEREK JARA Start: 11-18-2022 Assay of magnesium Chri evan Estelle DO Work Phone: Start: 11-17-2022 Radiologic exam ches t 2 views Forrest Ramirez 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 Work Phone: Start: 11-17-2022 End: 11-17-2022 Antibody screen Derek Jara MD, PhD Work Phone: Comment on above: Order Comment: Maint ain current type and screen. Performed By: #### X M #### [facility] ([place] [address] Start: 11-17-2022 Assay of magnesium Chri evan Estelle DO Work Phone: Start: 11-17-2022 Blood typing serologic abo Pallavi Mccabe DO Work Phone: Start: 11-16-2022 Glucose measurement, blood Derek Jara MD, PhD Work Phone: Start: 11-16-2022 Radiologic exam ches t single view Conrad Manriquez PA-C Work Phone: Start: 11-16-2022 Glucose measurement, blood Derek Jara MD, PhD Work Phone: Start: 11-16-2022 Glucose measurement, blood Derek Jara MD, PhD Work Phone: Start: 11-16-2022 Assay of magnesium Chri evan Estelle DO Work Phone: Start: 11-16-2022 C-reactive protein Chri evan Estelle DO Work Phone: Start: 11-15-2022 Glucose measurement, [...] 12 lds trcg only w/o i&r Pallavi Estelle DO Work Phone: Start: 11-15-2022 Assay of magnesium Chri evan Estelle DO Work Phone: Start: 11-14-2022 Glucose measurement, blood Derek Jara MD, PhD Work Phone: Start: 11-14-2022 CONTINUOUS CARDIAC MONITORING STRIP Other Other Start: 11-14-2022 Ecg routine ecg w/le ast 12 lds trcg only w/o i&r Pallavi Estelle DO Work Phone: Start: 11-14-2022 Glucose measurement, blood Derek Jara MD, PhD Work Phone: Start: 11-14-2022 Assay of magnesium Chri evan Estelle DO Work Phone: Start: 11-14-2022 Creatinine other source Darlene Talbot MD, PhD Work Phone: Start: 11-14-2022 Glucose measurement, blood Derek Jara MD, PhD Work Phone: Start: 11-14-2022 Assay of magnesium Chri evan Estelle DO Work Phone: Start: 11-14-2022 End: 11-14-2022 Glucose measurement, blood Derek anaya MD, PhD Work Phone: Start: 11-14-2022 Radiologic exam ches t single view Pallavi Darcy DO Work Phone: Start: 11-14-2022 Glucose measurement, [...] ination ph pco2 po2 co2 hco3 Pallavi Darcy DO Work Phone: Start: 11-13-2022 Glucose measurement, blood Derek Jara MD, PhD Work Phone: Start: 11-13-2022 Glucose measurement, blood Derek Jara MD, PhD Work Phone: Start: 11-13-2022 End: 11-13-2022 Glucose measurement, blood Derek anaya MD, PhD Work Phone: Start: 11-13-2022 Radiologic exam ches t single view Pallavi Mccabe DO Work Phone: Start: 11-13-2022 Radiologic exam abdo men 1 view Pallavi Estelle DO Work Phone: Start: 11-13-2022 Assay of magnesium Chri evan Alaniscy DO Work Phone: Start: 11-13-2022 End: 11-13-2022 [...] 11-13-2022 Thromboplastin time partial plasma/whole blood Forrest Ramirez 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 Work Phone: Start: 11-13-2022 Thromboplastin time partial plasma/whole blood Forrest Denise List 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 Work Phone: Start: 11-12-2022 Antibody screen DEREK SILVER Comment on above: Performed By: #### U LYTR, UCRER #### [facility] (DEFAULT) [address] [place] [address] Start: 11-12-2022 Antibody screen Derek silver MD, PhD Work Phone: Start: 11-12-2022 Blood typing serologic abo Andrew Lawson 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 Work Phone: Start: 11-12-2022 PREPARE TO TRANSFUSE OR RED BLOOD CELLS Andrew Yarbrough Renny 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 Work Phone: Start: 11-12-2022 Thromboplastin time partial plasma/whole blood Forrest Denise List 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 Work Phone: Start: 11-12-2022 CONTINUOUS CARDIAC MONITORING STRIP Other Other Start: 11-12-2022 End: 11-12-2022 Thromboplastin time partial plasma/whole blood Forrest Denise List 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 Work Phone: Start: 11-11-2022 Thromboplastin time partial plasma/whole blood Forrest Denise List 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 Work Phone: Start: 11-11-2022 CONTINUOUS CARDIAC MONITORING STRIP Other Other Start: 11-11-2022 Thromboplastin time partial plasma/whole blood Forrest Denise List 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 Work Phone: Start: 11-10-2022 Thromboplastin time partial plasma/whole blood Forrest Denise List 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 Work Phone: Start: 11-10-2022 Thromboplastin time partial plasma/whole blood Forrest Denise List 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 Work Phone: Start: 11-10-2022 Spmtry w/vc expirato ry floyd w/wo mxml vol vntj Forrest Denise List 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 Work Phone: Start: 11-10-2022 End: 11-10-2022 Dup-scan uxtr art/artl bpgs uni/lmtd study Wendie Denise Marlys PA-C Work Phone: Start: 11-10-2022 Duplex scan extracra nial art compl bi study Wendie Denise Marlys PA-C Work Phone: Start: 11-10-2022 CONTINUOUS CARDIAC MONITORING STRIP Other Other Start: 11-10-2022 Thromboplastin time partial plasma/whole blood Forrest Denise List 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 Work Phone: Start: 11-10-2022 Creatinine blood Forrest Denise List 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 Work Phone: Start: 11-09-2022 Thromboplastin time partial plasma/whole blood Forrest Denise List 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 Work Phone: Start: 11-09-2022 Glucose measurement, blood Derek Jara MD, PhD Work Phone: Start: 11-09-2022 Ct thorax w/o contra st material Wendie Denise Marlys PA-C Work Phone: Start: 11-09-2022 Thromboplastin time partial plasma/whole blood Forrest Denise List 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 Work Phone: Start: 11-09-2022 Iadna s aureus ampli fied probe tq Wendie Sachin Frankel PA-C Work Phone: Start: 11-09-2022 CONTINUOUS CARDIAC MONITORING STRIP Other Other Start: 11-09-2022 Thromboplastin time partial plasma/whole blood Forrest Denise List 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 Work Phone: Start: 11-09-2022 Glucose measurement, blood Derek Jara MD, PhD Work Phone: Start: 11-09-2022 End: 11-09-2022 Antibody screen Derek Jara MD, PhD Work Phone: Comment on above: Performed By: #### X M #### [facility] (DEFAULT) [address] [address] Start: 11-09-2022 ABORH TYPE RECONFIRMATION Anastasiyaselena HERRERA Start: 11-09-2022 Assay of triiodothyr onine t3 total tt3 Wendie Frankel PA-C Work Phone: Start: 11-09-2022 TROPONIN 1 HOUR Forrest Ramirez 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 Work Phone: Start: 11-09-2022 Lipid 1996 panel - S [place] or Plasma Derek Jara MD, PhD Work Phone: Start: 11-09-2022 Radiologic exam ches t single view Forrest Ramirez 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 Work Phone: Start: 11-09-2022 Bilirubin direct Forrest Ramirez 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 Work Phone: Start: 11-09-2022 CBC AND ELECTRONIC DIFF Forrest Denise List 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 Work Phone: Start: 11-09-2022 Complete blood count with white cell differential, automated Forrest Ramirez 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 Work Phone: Start: 11-09-2022 EXTRA MICRO Forrest darling 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 Work Phone: Start: 11-09-2022 HIGH SENSITIVITY TRO PONIN I X2 Forrest Ramirez 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 Work Phone: Start: 11-09-2022 Lipid panel Forrest darling 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 Work Phone: Start: 11-09-2022 TROPONIN I INITIAL Oleg Ramirez 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 Work Phone: Start: 11-09-2022 URINALYSIS REFLEX TO CULTURE Forrest Ramirez 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 Work Phone: Start: 11-09-2022 Urnls dip stick/tabl et reagent auto microscopy Forrestberry Ramirez 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 Work Phone: Start: 11-08-2022 Glucose measurement, blood Derek Jara MD, PhD Work Phone: Start: 11-08-2022 Plain chest X-ray Start: 10-15-2022 History of coronary artery bypass grafting History of coronary artery bypass surgery Dr. Neville Mccall DO Comment on above: CABG x2: SNOWDEN-LAD, S VG-OM 11/13/[address] [facility] [address] Derek Jara History of coronary artery bypass grafting S/P CABG (coronary artery bypass graft) Derek Jara MD, PhD Work Phone: Plan of Treatment Date Care Activity Detail Author Start: 11-09-2027 Lipid panel [facility] Start: 07-15-2027 Diabetes Screening Diabetes Screening [facility] Start: 12-14-2025 Diabetes Screening Diabetes Screening [facility] Start: 06-29-2025 Plain x-ray of pelvis and lower extremity HIP, UNI W/ Pelvis 2-3 Views [facility] Start: 06-29-2025 XR Pelvis and Hip Views [facility] Start: 05-19-2025 Anesthesia open total hip arthroplasty ANESTH HIP ARTHROPLASTY [facility] Start: 05-19-2025 Arthrp acetblr/prox fem prostc agrft/algrft TOTAL HIP ARTHROPLASTY [facility] Start: 05-19-2025 Application of ice collar, cap or bag [facility] Start: 05-19-2025 Exercises [facility] Start: 05-19-2025 Incentive spirometry [facility] Start: 05-19-2025 Neurovascular assessment [facility] Start: 05-19-2025 Patient discharge [facility] Start: 05-19-2025 Patient education [facility] Start: 05-19-2025 Provision of activity privileges [facility] Start: 05-19-2025 Recommendation to continue with treatment [facility] Start: 05-19-2025 Referral to service [facility] Start: 05-19-2025 Vital signs measurements [facility] Start: 05-19-2025 Wound care [facility] Start: 05-19-2025 [facility] Start: 2025 Plain x-ray of pelvis and lower extremity HIP, UNI W/ Pelvis 2-3 Views [facility] Start: 2025 XR Pelvis and Hip Views [facility] Start: 06-15-2024 Covid-19 Vaccine ( season) Covid-19 Vaccine ( season) [facility] Start: 06-15-2024 Covid-19 Vaccine ( season) Covid-19 Vaccine ( season) [facility] Start: 06-15-2024 Influenza vaccination Influenza Vaccine (#1) [facility] Start: 12-15-2023 Potassium [Moles/volume] in Serum or Plasma POTASSIUM [facility] Start: 11-18-2023 Finding of potassium level (finding) [facility] Start: 11-09-2023 Screening for malignant neoplasm of lung [facility] Start: 06-15-2023 Influenza vaccination INFLUENZA (#1) [facility] Start: 03-30-2023 Patient discharge [facility] Start: 02-05-2023 Patient referral [facility] Work Phone: Start: 12-14-2022 End: 12-14-2022 ambulatory [facility] Start: 12-08-2022 Patient referral [facility] Work Phone: Start: 11-09-2022 Thyroid stimulating hormone measurement [facility] Start: 11-09-2022 [facility] Start: 11-08-2022 Patient discharge [facility] Start: 11-08-2022 Troponin I measurement [facility] Start: 11-08-2022 Notification of physician [facility] Start: 11-08-2022 Patient education [facility] Start: 11-08-2022 Provision of activity privileges [facility] Start: 11-08-2022 Pulse taking [facility] Start: 11-08-2022 Taking patient vital signs [facility] Start: 11-08-2022 Wound care [facility] Start: 11-08-2022 [facility] Start: 11-08-2022 Following clinical pathway protocol [facility] Start: 11-08-2022 Catheterization of vein [facility] Start: 11-08-2022 Medication not administered [facility] Start: 11-08-2022 Notification of physician [facility] Start: 11-08-2022 Preoperative care [facility] Start: 11-08-2022 Ambulation without limitation [facility] Start: 11-08-2022 Assessment of risk of venous thromboembolism [facility] Start: 11-08-2022 Electrocardiographic procedure [facility] Start: 11-08-2022 Incentive spirometry [facility] Start: 11-08-2022 Insertion of catheter into peripheral vein [facility] Start: 11-08-2022 Measuring intake and output [facility] Start: 11-08-2022 Oxygen therapy [facility] Start: 11-08-2022 Providing care according to standard [facility] Start: 11-08-2022 Referral to juice weigher [facility] Start: 11-08-2022 Referral to service [facility] Start: 11-08-2022 Tobacco use cessation education [facility] Start: 11-08-2022 End: 11-08-2022 [facility] Start: 11-08-2022 End: 11-08-2022 Troponin I measurement [facility] Start: 11-08-2022 D-dimer assay, quantitative [facility] Start: 11-08-2022 Verification routine [facility] Start: 11-08-2022 Admission procedure [facility] Start: 11-08-2022 Patient referral to dietitian [facility] Start: 10-15-2022 DEPRESSION ASSESSMENT DEPRESSION ASSESSMENT [facility] Start: 06-15-2022 Influenza vaccination [facility] Start: 2022 Influenza vaccination LUNG CANCER SCREENING [facility] Start: 2022 Prostate specific antigen measurement [facility] Start: 2022 SHINGRIX VACCINE (1 of 2) SHINGRIX VACCINE (1 of 2) [facility] Start: 2022 Zoster vaccine hzv live for subcutaneous use ZOSTER (SHINGLES) VACCINE (1 of 2) [facility] Start: 2022 [facility] Start: 2017 COLOGUARD (FIT-DNA) COLOGUARD (FIT-DNA) [facility] Start: 2017 Colonoscopy COLONOSCOPY [facility] Start: 2017 COLORECTAL CANCER SCREENING COLORECTAL CANCER SCREENING [facility] Start: [address] COLONOGRAPHY [facility] Start: 2017 DIABETES SCREEN DIABETES SCREEN [facility] Start: 2017 FECAL OCCULT BLOOD FECAL OCCULT BLOOD [facility] Start: 2017 Screening for malignant neoplasm of colon [facility] Start: 2017 SIGMOIDOSCOPY SIGMOIDOSCOPY [facility] Start: 05-29-2012 LIPID SCREEN LIPID SCREEN [facility] Start: 1991 Hepatitis B Vaccine (1 of 3 - 19+ 3-dose series) Hepatitis B Vaccine (1 of 3 - 19+ 3-dose series) [facility] Start: 1991 Pneumococcal Vaccine: 50+ (1 of 2 - PCV) Pneumococcal Vaccine: 50+ (1 of 2 - PCV) [facility] Start: 1991 Third diphtheria, tetanus and acellular pertussis (DTaP) vaccination [facility] Start: 1991 Urine microalbumin profile [facility] Start: 1990 Anxiety Screening Anxiety Screening [facility] Start: 1990 Depression Screening Depression Screening [facility] Start: 1990 HEPATITIS C SCREENING HEPATITIS C SCREENING [facility] Start: 1990 Hepatitis C screening Hepatitis C Screening [facility] Start: 1990 HIV SCREENING HIV SCREENING [facility] Start: 1990 HIV screening HIV Screening [facility] Start: 1987 HIV screening [facility] Start: 1978 PNEUMOCOCCAL (1 - PCV) PNEUMOCOCCAL (1 - PCV) [facility] Start: 1978 Pneumococcal vaccination Pneumococcal Vaccine (1 of 2 - PCV) [facility] Start: 1978 [facility] Start: 1972 COVID-19 VACCINE (#1) COVID-19 VACCINE (#1) [facility] Start: 1972 [facility] Start: 1972 HEPATITIS B (1 of 3 - 3-dose series) HEPATITIS B (1 of 3 - 3-dose series) [facility] Start: 1972 Hepatitis C screening [facility] Start: 1972 Tetanus vaccination [facility] 24 Hour ECG [facility] Alanine aminotransfe rase [Enzymatic activity/volume] in Serum or Plasma [facility] Albumin [Mass/volume ] in Serum or Plasma [facility] Alkaline phosphatase [Enzymatic activity/volume] in Serum or Plasma [facility] Anion gap measurement [facility] Aspartate aminotrans ferase [Enzymatic activity/volume] in Serum or Plasma [facility] Bilirubin, total measurement [facility] BUN/Creatinine ratio [facility] Calcium [Mass/volume ] in Serum or Plasma [facility] Carbon dioxide, tota l [Moles/volume] in Serum or Plasma [facility] Chloride [Moles/volu me] in Serum or Plasma [facility] Cholesterol [Mass/vo lume] in Serum or Plasma [facility] Cholesterol in HDL [Mass/volume] in Serum or Plasma [facility] Cholesterol in LDL [Mass/volume] in Serum or Plasma [facility] Colonoscopy [facility] Creatinine [Moles/vo lume] in Serum or Plasma [facility] Glucose [Mass/volume ] in Serum or Plasma [facility] Hematocrit [Volume F raction] of Blood [facility] Hemoglobin [Mass/vol ume] in Blood [facility] Hepatic function panel [facility] Leukocytes [#/volume] in Blood [facility] Lipid 1995 panel - S [place] or Plasma [facility] Lipid 1996 panel - [facility] or Plasma [facility] Magnesium [Mass/volu me] in Serum or Plasma [facility] Mean corpuscular hem oglobin concentration determination [facility] Mean corpuscular hem oglobin determination [facility] Measurement of renal function [facility] Neutrophil count [facility] Neutrophil percent differential count [facility] Patient referral [facility] Work Phone: Platelets [#/volume] in Blood [facility] Potassium [Moles/vol ume] in Serum or Plasma [facility] Radionuclide imaging of perfusion of myocardium under exercise stress [facility] Red blood cell count [facility] Red cell distributio n width determination [facility] Sodium [Moles/volume ] in Serum or Plasma [facility] Total protein measurement [facility] Triglycerides measurement [facility] Urate [Mass/volume] in Serum or Plasma [facility] Urea nitrogen [Mass/ volume] in Serum or Plasma [facility] VLDL cholesterol measurement [facility] XR Shoulder GE [facility] Payers Date Payer Category Payer Self-pay [id number] 2023 Private Health Insurance [id number] 2020 Private Health Insurance [id number] 2020 Private Health Insurance [id number] 1972 Unknown [id number] 2..840.1.790166.3.579.2.5 94 1972 Unknown [id number] 2..840.1.785693.3.579.2.5 94 1972 Unknown [id number] 2..840.1.057527.3.579.2.5 94 1972 Unknown [id number] 2..840.1.724152.3.579.2.5 94 1972 Unknown [id number] 2.16.840.1.627699.3.579.2.5 94 Unknown SELF INS [facility] [id number] Unknown [id number] 2.16.840.1.864810.3.579.2.4 62 Unknown [id number] 2.16840.1.271035.3.579.2.4 62 Unknown [id number] 2.16.840.1.246508.3.579.2.4 62 Unknown [id number] 2.16.840.1.757443.3.579.2.4 62 Unknown [id number] 2.16.840.1.972644.3.579.2.4 62 Unknown [id number] 2.16.840.1.997924.3.579.2.4 62 Unknown [id number] 2.16.840.1.667598.3.579.2.4 62 Unknown [id number] 2.16.840.1.514325.3.579.2.4 62 Unknown [id number] 2.16.840.1.706352.3.579.2.4 62 Unknown [id number] 2.16.840.1.547493.3.579.2.4 62 Unknown [id number] 2.16.840.1.730553.3.579.2.4 62 Unknown [id number] 2.16.840.1.334481.3.579.2.4 62 Unknown [id number] 2.16.840.1.251622.3.579.2.4 62 Unknown [id number] 2.16.840.1.722588.3.579.2.4 62 Unknown [id number] 2.16.840.1.898277.3.579.2.4 62 Unknown [id number] 2.16.840.1.692332.3.579.2.4 62 Unknown [id number] 2.16.840.1.320986.3.579.2.4 62 Unknown [id number] 2.16.840.1.516305.3.579.2.4 62 Unknown [id number] 2.16.840.1.212383.3.579.2.4 62 Unknown [id number] 2.16.840.1.978916.3.579.2.4 62 Unknown [id number] 2.16.840.1.599226.3.579.2.4 62 Unknown [id number] 2.16.840.1.073056.3.579.2.4 62 Unknown [id number] 2.16.840.1.575531.3.579.2.4 62 Unknown [id number] 2.16.840.1.670395.3.579.2.4 62 Unknown [id number] 2.16.840.1.651449.3.579.2.4 62 Social History Date Type Detail Facility Start: 11-08-2022 End: 01-03-2024 Tobacco smoking status IDIS Unknown if ever smoked [facility] Start: 1970 Sex Assigned At Male [facility] Start: 11-09-2022 End: 05-05-2025 Tobacco smoking status IDIS Smokes tobacco daily [facility] History of tobacco use Cigarette Smoker [facility] Start: 11-09-2022 End: 09-29-2024 Cigarettes smoked current (pack per day) - Reported [facility] Start: 11-09-2022 End: 07-15-2024 Tobacco use and exposure Smokeless tobacco non-user [facility] Start: 11-15-2022 End: 09-29-2024 Alcohol intake Current drinker of alcohol (finding) [facility] Start: 1970 Sex Assigned At [facility] Start: 10-30-2022 End: 12-14-2022 Exposure to SARS-CoV-2 (event) Not sure [facility] Start: 12-14-2022 [facility] History of tobacco use Current smoker [facility] Start: 05-01-2023 End: 09-29-2024 Tobacco use panel [facility] Start: 01-06-2025 Sex Male (finding) [facility] Medical Equipment Procedure Code Equipment Code Equipment Origin al Text Equipment Identifier Dates Arthroplasty, hip, total, using robot-assisted navigation ([id number]) Ceramic femoral head prosthesis ()[id number] [facility] Start: 05-19-2025 Arthroplasty, hip, total, using robot-assisted navigation ([id number]) Coated hip femur prosthesis, modular ([id number] FDA Start: 05-19-2025 Arthroplasty, hip, total, using robot-assisted navigation ([id number]) Non-constrained polyethylene acetabular liner ()[id number] FDA Start: 05-19-2025 Arthroplasty, hip, total, using robot-assisted navigation ([id number]) Acetabular shell ()[id number] FDA Start: 05-19-2025 Arthroplasty, hip, total, using robot-assisted navigation ([id number]) Orthopaedic bone screw, non-bioabsorbable, sterile ()[id number] FDA Start: 05-19-2025 [id number] Start: 11-13-2022 Goals Date Patient Goal Desired Activity /State Functional Status Date Assessment Result Facility 11-08-2022 Functional status Ambulates;Up ad y[facility] Work Phone: Mental Status Date Assessment Result Facility 05-19-2025 Cognitive function Level Of Cons ciousness Awake;Alert;Appropriate [facility] Work Phone: 03-30-2023 Cognitive function Voice/Name [facility] Work Phone: 11-08-2022 Cognitive function Voice/Name [facility] Work Phone: Clinical Notes 10-15-2022 to 05-19-2025 Note Date & Type Note Facility 05-19-2025 Consult note Note Date/Time May 19, 2025 10: 42am [facility] Medical Records Department [address] [place] [address] Anesthesia Postop Eval I 05/19/25 1041 MR#: [id number] Acct: [id number] Name: LAURA STEPHENS Rep #:[id number] : 1970 55 From: Coty LOPES PCP: Dr. Svitlana Becerril MD Status:REG SD C Y Race: C Location: [place] [address]- Anesthesia: Postop Eval I Current Vital Signs Temperature: 97.9 F Pulse Rate: 64 Blood Pressure: 102/66 Respiratory Rate: 16 Pulse Ox: 96 Oxygen Delivery Method: Nasal Cannula Oxygen Flow Rate (L/min): 2 Assessment Airway patent: Yes Spontaneous unlabored respirations: Yes Mental status: Calm and Asleep nausea: No Vomiting: No Anesthesia Complication: No Fluid Hydration Crystalloid volume administer (ml): 2,000 Total IV fluid infused: 2,000 Progress Note Anesthesia document: Postop Eval 1 completed: Yes 05/19/25 1042 <Electronically signed by Coty Olvera CRNA> Date _ Coty Olvera [employer] Cosigner Signature: Date CC: ~ Signed [facility] Work Phone: 1(841) 131-534008-05-2025 Discharge summary [facility] Date/Time May 19, 2025 10: 39am [facility] Medical Records Department [address] [place] [address] Instructions for Home/Discharge Instructions 05/19/25 1035 MR#: [id number] Acct: [id number] Name: LAURA STEPHENS Rep #:[id number] : 1970 55 From: Neville Mccall DO PCP: Dr. Svitlana Becerril MD Status:REG SD C Discharge Instructions Diet Discharge Diet: No restrictions (Minimize sweets in the perioperative period high blood sugar can increase risk of infection) Activity Weight Bearing Status: Full weight bearing Dressing / Incision Call your doctor if you observe: Shortness of breath and Chest pain Additional Dressing/Incision Instructions:: Do not shower for 72hrs. May Begin daily showering with warm water antibacterial soap postop day #3( 72hrs Post- operatively) and then daily. Leave the dressing on for 72 hours postoperativelythen remove prior to first shower and change dressing daily after this until no drainage for 2 consecutive days then may leave open to air. If you decide not shower on Sunday and wish to sponge bath only, then may leave dressing undisturbed for up to 1 week, but must remove prior to first shower. Do not submerge for 3 weeks. If not showering daily after the initial dressing is removed you must clean incision and change dressing daily after the dressingcomes off, must come off by 7 days postop. Do not allow animals near the incision area. Keep clean. Follow hip precautions that were reviewed in hospital. Wear compression stockings, may remove at night. Start physical therapy as directed in hospital. Follow prescriptions instructions do not take any other pain medication or differ dosing without consulting your physician. Do not take oral NSAIDs until blood thinner has been completed , then may begin the day after completion if needed . Call Dr. Mccall's office with any concerns. Follow Up Care Please Follow Up With: Neville Mccall DO When: 2 weeks Test Results: Test results from this visit will be discussed in further detail at your follow- up appointment, if applicable. Discharge Plan Admission Primary Reason for Your Visit: Right total hip arthroplasty Attending Provider: Neville Mccall Primary Care Provider: Svitlana Becerril Instructions Print Language: Northern Irish Discharge Orders/Prescriptions Prescriptions: New acetaminophen 500 mg tablet 1,000 mg PO Q6H Qty: 100 0RF cephalexin 500 mg capsule 1,500 mg PO Q8H Qty: 6 0RF Rx Instructions: Take 3 tabs before you go to bed and 3 tabs after 5 AM morning after surgery when you wake up Eliquis 2.5 mg tablet 2.5 mg PO BID Qty: 42 0RF Rx Instructions: Begin morning after surgery. oxycodone 5 mg tablet 5 - 10 mg PO Q6H PRN (Reason: pain) 7 Days Qty: 60 0RF Continued aspirin [Alyse Chewable Aspirin] 81 mg tablet,chewable 81 mg PO DAILY Rx Instructions: On hold for surgery cholecalciferol (vitamin D3) 10 mcg (400 unit) capsule 10 mcg PO DAILY alprazolam [Xanax] 0.25 mg tablet 0.25 mg PO DAILY PRN (Reason: anxiety) Qty: 5 0RF atorvastatin 80 mg tablet 40 mg PO QHS Qty: 90 3RF fluoxetine 20 mg capsule 20 mg PO DAILY allopurinol 100 mg tablet 200 mg PO QDAY metoprolol tartrate 25 mg tablet 12.5 mg PO BID Qty: 90 3RF Held acetaminophen 325 mg tablet 650 mg PO Q4H PRN (Reason: Pain) Hold Instructions: Duplicate medication Referrals / Follow Up: Svitlana Becerril MD [Primary Care Provider] - Disposition Disposition (needs filled in before D/C Order can be placed): Home, Self Care 05/19/25 1039<Electronically signed by Neville Mccall DO>Neville Mccall DO CC: Dr. Svitlana Becerril MD ~ Signed [facility] Work Phone: [phone]) 269-644308-05-2025 Radiology Diagnostic study note [facility] Imaging Services [address] [place] [address] Hip Min 2 Views (Portable) MR#: [id number] Acct: [id number] Name: LAURA STEPHENS Rep #: [id number] : 1970 M 55 From: Vlad Jeff MD PCP: Dr. Svitlana Becerril MD Status: REG SD C Study:Hip Min 2 Views (Portable) Date of Exam : 05/19/25 Exam# [id number] Ordering Dr: Neville Mccall DO PROCEDURE: HIP MIN 2 VIEWS (PORTABLE) 05/19/2025 REASON FOR EXAM: POST OP right hip arthroplasty TECHNIQUE: Two-view portable right hip to include a low centered AP pelvis. COMPARISON: Preoperative study of 2025. 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 The patient's postoperative right total hip arthroplasty, with satisfactory alignment and overlyingskin shasha. No complication is noted. Reading Location: [facility] CC: Dr. Svitlana Becerril MD; Dr. Neville Mccall DO ~ Coagulating Operator: Signed [facility]08-05-2025 Consult note [facility] Medical Records Department [address] [place] [address] Anesthesia Postop Eval I 05/19/25 1041 MR#: [id number] Acct: [id number] Name: LAURA STEPHENS Rep #:[id number] : 1970 55 From: Coty LOPES PCP: Dr. Svitlana Becerril MD Status:REG SD C Y Race: C Location: [place] [address] Anesthesia: Postop Eval I Current Vital Signs Temperature: 97.9 F Pulse Rate: 64 Blood Pressure: 102/66 Respiratory Rate: 16 Pulse Ox: 96 Oxygen Delivery Method: Nasal Cannula Oxygen Flow Rate (L/min): 2 Assessment Airway patent: Yes Spontaneous unlabored respirations: Yes Mental status: Calm and Asleep nausea: No Vomiting: No Anesthesia Complication: No Fluid Hydration Crystalloid volume administer (ml): 2,000 Total IV fluid infused: 2,000 Progress Note Anesthesia document: Postop Eval 1 completed: Yes 05/19/25 1042 [employer]> Date _ Coty Olvera [employer] Cosigner Signature: Date CC: ~ Signed [facility]08-05-2025 Discharge summary [facility] Medical Records Department [address] [place] [id number] Instructions for Home/Discharge Instructions 05/19/25 1035 MR#: [id number] Acct: [id number] Name: LAURA STEPHENS Rep #:[id number] : 1970 55 From: Neville Mccall DO PCP: Dr. Svitlana Becerril MD Status:REG SD C Discharge Instructions Diet Discharge Diet: No restrictions (Minimize sweets in the perioperative period high blood sugar can increase risk of infection) Activity Weight Bearing Status: Full weight bearing Dressing / Incision Call your doctor if you observe: Shortness of breath and Chest pain Additional Dressing/Incision Instructions:: Do not shower for 72hrs. May Begin daily showering withwarm water antibacterial soap postop day #3( 72hrs Post- operatively) and then daily. Leave the dressing on for 72 hours postoperativelythen remove prior to first shower and change dressing daily after this until no drainage for 2 consecutive days then may leave open to air. If you decide not shower on Sunday and wish to sponge bath only, then may leave dressing undisturbed for up to 1 week, but must remove prior to first shower. Do not submerge for 3 weeks. If not showering daily after the initial dressing is removed you must clean incision and change dressing daily after the dressingcomes off, must come off by 7 days postop. Do not allow animals near the incision area. Keep clean. Follow hip precautions that were reviewed in hospital. Wear compression stockings, may remove at night. Start physical therapy as directed in hospital. Follow prescriptions instructions do not take any other pain medication or differ dosing without consulting your physician. Do not take oral NSAIDsuntil blood thinner has been completed , then may begin the day after completion if needed . Call Dr. Mccall's office with any concerns. Follow Up Care Please Follow Up With: Nevilel Mccall DO When: 2 weeks Test Results: Test results from this visit will be discussed in further detail at your follow- up appointment, if applicable. Discharge Plan Admission Primary Reason for Your Visit: Right total hip arthroplasty Attending Provider: Neville Mccall Primary Care Provider: Svitlana Becerril Instructions Print Language: [place] Irish Discharge Orders/Prescriptions Prescriptions: New acetaminophen 500 mg tablet 1,000 mg PO Q6H Qty: 100 0RF cephalexin 500 mg capsule 1,500 mg PO Q8H Qty: 6 0RF Rx Instructions: Take 3 tabs before you go to bed and 3 tabs after 5 AM morning after surgery when you wake up Eliquis 2.5 mg tablet 2.5 mg PO BID Qty: 42 0RF Rx Instructions: Begin morning after surgery. oxycodone 5 mg tablet 5 - 10 mg PO Q6H PRN (Reason: pain) 7 Days Qty: 60 0RF Continued aspirin [Alyse Chewable Aspirin] 81 mg tablet,chewable 81 mg PO DAILY Rx Instructions: On hold for surgery cholecalciferol (vitamin D3) 10 mcg (400 unit) capsule 10 mcg PO DAILY alprazolam [Xanax] 0.25 mg tablet 0.25 mg PO DAILY PRN (Reason: anxiety) Qty: 5 0RF atorvastatin 80 mg tablet 40 mg PO QHS Qty: 90 3RF fluoxetine 20 mg capsule 20 mg PO DAILY allopurinol 100 mg tablet 200 mg PO QDAY metoprolol tartrate 25 mg tablet 12.5 mg PO BID Qty: 90 3RF Held acetaminophen 325 mg tablet 650 mg PO Q4H PRN (Reason: Pain) Hold Instructions: Duplicate medication Referrals / Follow Up: Svitlana Becerril MD [Primary Care Provider] - Disposition Disposition (needs filled in before D/C Order can be placed): Home, Self Care 05/19/25 1039Jojaqui Toledorampart CC: Dr. Svitlana Becerril MD ~ Signed [facility]08-05-2025 Procedure note [facility] Medical Records Department [address] [place] [address] Operative Report 05/19/25 1033 MR#: [id number] Acct: [id number] Name: LAURA STEPHENS Rep #:[id number] : 1970 55 From: Neville Mccall DO PCP: Dr. Svitlana Becerril MD Status:[facility] C Location: [place] [address] Operative Report (Standard) Operative Information Date of Procedure: 05/19/25 Pre-Operative Diagnosis: Right hip AVN Post-Operative Diagnosis: Same Surgery/Procedure Performed: Right total hip arthroplasty behavioral health care manager: Yes Spinner Frame: Selwyn Subramanian Tasks completed by assistant corporation counsel: Opening & closing, Implanting device and Retracting Type of Anesthesia: Spinal RN Documented Start/Stop Times: Operation Date: 05/19/25 08:15 Case Time Into Pre-Op 05/19/25 06:20 Anesthesia Start 05/19/25 08:02 Into Room 05/19/25 08:02 Procedure Start 05/19/25 08:43 Procedure End 05/19/25 10:26 Procedure Start Time: 08:43 Procedure Stop Time: 10:26 Select all DRAINS/GRAFTS/IMPLANTS that apply: Prosthetic device Prosthetic device details: [place] Estimated Blood Loss: 125 Specimen collected: Yes Description of specimen(s) removed: Femoral head Description of surgery: Preoperative diagnosis: Right hip AVN Postoperative diagnosis: Same Procedure: CT-guided Makoplasty assisted right total hip arthroplasty Implants: [place] Accolade II stem size 4, 127 degree neck angle +2.5 head neck length 56 mm Trident II acetabular shell with 40 mm cancellous screw 36 mm ceramic head, 10 degree Trident X3 polyethylene insert. Anesthesia: Spinal EBL: 125 cc Complications: None Condition: Stable to PACU News Commentator Selwyn Subramanian. My physician service center assistant was a vital part of this case. He was important in appropriate retraction during the case, and protection of soft tissues during procedure. His intimateknowledge of the case and my steps aided in safe and expedient completion of the procedure as well as appropriate position of the extremity during the case. He was also vital in assisting with closure under my direct supervision. Indication for procedure: This is a 55-year-old male who has had long-standing arthrosis of the hipwho has failed conservative treatment and wished to undergototal hip arthroplasty. We did discuss operative versus nonoperative intervention including risks of bleeding, infection , nerve artery tissue damage, need for further surgery, fracture, leg length discrepancy dislocation blood clot and need for postoperative physical therapy and postoperative expectations. An informed consent was signed. Procedure: Patient was met in the preoperative holding area once again the operative extremity was identified by both patient and physician and was marked. Patient was met by anesthesia . Anesthesia was started. patient was then positioned in the lateral decubitus position on a well-padded pegboardwith an axillary roll. All bony prominences were checked and padded. The patient was prepped and draped in the usual sterile fashion. A timeout was called to ensurethe proper patient procedure and extremity were being contemplated. Anatomic landmarks were palpated and marked for a standard posterior lateral approach. Prior to this the ASIS was palpated and 3 fingerbreadths proximal to this 3 pinswere placed at a 45 degree angle into the iliac crest with good purchase, stab incisions were made with a 15 blade into the skin prior to placement. The Makoplasty array was then secured. A 10 blade scalpel was used to make a posterior incision through the skin and subcutaneous tissue. retractors were used and electrocautery was used to maintain meticulous hemostasis and dissect full-thickness flaps until the gluteal fascia was reached. The gluteal fascia was incised in line with the gluteal fibers. The bursal tissue was then freed from the underside and a Charnley retractor was placed. The femoral trochanteric checkpoint was placed and leg length was assessed using the trochanteric checkpoint and an EKG lead that was placed on the knee prior to prepping the leg .the fat pad was then elevated off of the external rotators with electrocautery and the external rotators were dissected off ofthe greater trochanter including the piriformis and were tagged with #1 Ethibond for later repair. The joint capsule opened with posterior trapdoor technique. The hip was surgically dislocated. The measurement on the preoperative CT from the top of the lesser trochanter to the femoral neck cut was marked Hohmann was placed around the lesser trochanter. A neck cutting guide was used to lamonte the neck with a Bovie and an oscillating saw was used complete the femoral neck cut. Thefemoral head was then removed and sized. We then turned our attention to the acetabulum. A Bovie was used to make a perforation in the anterior joint capsule and a Frias retractor was placed this was repeated in the 6 o'clock position and a wide matteo was placed there. With a long handled knife the labral and pulvinar tissue were removed. We then registered the acetabulum withthe pointing array and confirmed our landmarks. Once the socket was thoroughlyprepared and labral tissue and pulvinar was removed we single reamed with the robotic arm. We then used the robotic arm to position the acetabular implant and impacted it into place under robotic guidance. We then proceeded to place aposterior superior screw by drilling first measuring and inserting the screw. We then inserted a trial liner. And turned our attention back to the femur at this point a femoral elevator was used. As well as a pointed wide Hohmann around the lesser trochanter and a Hohmann to help retract the gluteus medius. A box chisel was used to remove excess lateral neck followed by a canal finder and a lateralizing reamer. This was followed by sequential broaches. Attentionwas made of the version within the canal based on preoperative templating. Oncethe final broach was seated we then trialed reduced the hip it was determined that a 127 degree neck angle with a +2.5 neck length was the appropriate size. We then checked stability with shuck testing as well as flexion and internal rotation. then proceeded with hip extension and checked leg lengths at the knees and heels as well as with the trochanteric checkpoint and knee EKG lead. At this point trials were removed. A liner was inserted to the cup. The femoral stem was inserted. We re-trialed and then proceeded to impact the femoral head onto the Benny taper. We then surgically reduce the hip check stability again and leg lengths and were satisfied. Betadine rinse wasallowed to sit for 5 minutes while everyone changed their gloves. Thorough irrigation was performed. Followed by closure of the external rotators with #2 FiberWire followed by closure of gluteal fascia with #1 Ethibond. 0 Vicryl fat stitches and 2-0 Vicryl subcutaneous stitches and shasha in the skin. [place] were placed in the skin pin sites over the iliac crest and dressed with a Mepilex dressing. The main incision was dressed with a Mepilex ag dressing and an abduction pillow was placed. Patient tolerated the procedure well there was no intraoperative complications all counts were correct and the patient was broughtback to the PACU in stable condition Surgical Findings: AVN femoral head Complications Complications: No 05/19/25 1035 Cosigner Signature (if applicable): CC: Dr. Svitlana Becerril MD; Dr. Neville Mccall, DO~ Signed [facility]08-05-2025 Consult note Author Mahendra Puri [facility] Note Date/Time May 19, 2025 7:4 1am [facility] Medical Records Department [address] [place] [address] Pre-Anesthesia Evaluation 05/19/25 0740 MR#: [id number] Acct: [id number] Name: LAURA STEPHENS Rep #:[id number] : 1970 55 From: Mahendra Brito PCP: Dr. Svitlana Becerril MD Status:REG SD C Y Race: C Location: [facility]02-1 ASA Classification* ASA Classification ASA Classification: 2 Assessment & Plan Anesthesia* Anesthesia Assessment Anesthesia Assessment: Discussed sedation and/or anesthesia options, risks, benefits, and alternatives with patient/parents/legal guardian/POA. Questions invited. The patient/parents/legal guardian/POA seems to understand and agrees to proceedwith anesthesia plan. Reviewed the physical assessment, medical history, allergy history and patient home medications list prior to surgery/procedure/anesthetic and documented any changes. Performed airway and anesthesia risk assessments. Anesthesia Type Anesthesia Type: General, MAC and Spinal History Source History Obtained from:: Patient and Chart Anesthesia Focused Assessment* Temperature: 97.6 F Pulse Rate: 75 Blood Pressure: 111/72 Respiratory Rate: 18 Pulse Ox: 99 Oxygen Delivery Method: Room Air Airway Assessment Mouth opens: >3 cm Mallampati Score: II Teeth Condition: Missing Neck Range of motion (ROM): Full ROM Labs Anesthesia Preop lab: CBC WBC 7.3 K/mm3 (4.4-11.0) 05/14/25 11:19 05/14/25 RBC 4.67 M/mm3 (4.6-6.2) 05/14/25 11:19 05/14/25 Hgb 13.6 g/dL (13.0-16.5) 05/14/25 11:19 05/14/25 Hct 41.0 % (40-54) 05/14/25 11:19 05/14/25 Plt Count 293 K/mm3 (150-450) 05/14/25 11:19 05/14/25 CHEMISTRY Potassium 4.0 mmol/L (3.3-5.1) 05/14/25 11:19 05/14/25 Sodium 141 mmol/L (133-145) 05/14/25 11:19 05/14/25 Magnesium 2.0 mg/dL (1.5-2.2) 05/14/25 11:19 05/14/25 BUN 15 mg/dL (4-19) 05/14/25 11:19 05/14/25 Creatinine 0.99 mg/dL (0.70-1.20) 05/14/25 11:19 05/14/25 Glucose 123 mg/dL (70-99) H 05/14/25 11:19 05/14/25 TSH 1.20 uIU/mL (0.358-3.74) 08/30/23 15:54 COAG PT 13.9 SECONDS (11.7-14.9) 05/14/25 11:19 Pre-Assessment Diagnosis/Proposed Procedure Planned Operative Procedure(s): RIGHT TOTAL HIP ARTHROPLASTY Anesthesia History Anesthesia History - environmental associate: Anesthesia History - environmental associate Hx Hospitalization No 05/05/25 14:01 Any Problems With Anesthesia No 05/05/25 14:01 Cholinesterase deficiency No 05/05/25 14:01 You/Your Family Experience No 05/05/25 14:01 fever (hyperthermia) with Relationship Recent Exposure to Contagious No 05/19/25 06:48 Disease Does patient have nerve No 05/05/25 14:01 stimulator Patient instructed to have device shut off --Does patient have Pacemaker No 05/19/25 06:48 or ICD? When Was Last Pacemaker Check QUESTION #4 FULL TEXT: You/Your Family Experience fever (hyperthermia) with Anesthesia Last Oral Intake Last Oral intake: Last Oral Intake NPO since 04:00 05/19/25 06:48 Meds taken in AM with sips of No 05/19/25 06:48 water? Meds patient instructed to take am of surgery PONV PONV - environmental associate: PONV - environmental associate Female No 05/05/25 14:01 HX of Motion Sickness No 05/05/25 14:01 HX of N/V After Surgery No 05/05/25 14:01 Non-Smoker Yes 05/05/25 14:01 Duration of Surgery greater Yes 05/05/25 14:01 than 60 minutes Number of Risk Factors 2 05/05/25 14:01 PONV Score Moderate Risk 05/05/25 14:01 Height & Weight Height & Weight: Anesthesia: Height & Weight Height 6 ft 8.22 in 05/19/25 06:48 Weight: 110 kg 05/19/25 06:48 Body Mass Index (BMI) 26.4 05/19/25 06:48 Respiratory Assessment Respiratory Assessment - environmental associate: Respiratory Tract Infection Hx - environmental associate Hx Respiratory Tract Infection No 05/05/25 14:01 STOP Sleep Apnea STOP Sleep Apnea - environmental associate: STOP Sleep Apnea - environmental associate Hx Hypertension Yes: CONTROLLED WITH MED 05/05/25 [...] Tobacco Use History Tobacco Use History - environmental associate: Tobacco Use History - environmental associate Tobacco Use Smoking Status Current every day smoker 05/05/25 14:01 Hx Tobacco Use No 05/05/25 14:01 Years Smoking Packs Smoked per Day Smoking Cessation Date was Yes - quit smoking within 15 05/05/25 14:01 within the last 15 years years Hx Smoking Cessation Date Hx Smoking Cessation Counseling Hematologic Medial History Hematologic Hx - environmental associate: Hematologic Medical Hx - heritage consultant Hx of Blood Transfusion No 05/05/25 14:01 Hx of Transfusion in last 3 No 05/05/25 14:01 Months Date of Last Transfusion (if within last 3 months) Ever experience any problems No 05/05/25 14:01 with transfusion(s)? Specify any problems Hx of Preganancy in last 3 N/A 05/05/25 14:01 Months Nurse Filling Out Transfusion DSCHRIBER 05/05/25 14:01 & Questions: Date: 05/05/25 05/05/25 14:01 Time: 14:05 05/05/25 14:01 Patient unable to answer at this time (ie. confused, unrespo /Reproduction History /Reproductive History - environmental associate: /Reproductive Hx- environmental associate Hx Now No 05/05/25 14:01 Gestational Age (in weeks): EDC: Hx Hx Para Hx Section SAB No 05/05/25 14:01 Active Medications Active Medications: Current Medications Generic Name Dose Route Start Last Admin Trade Name Freq PRN Reason Stop Dose Admin Acetaminophen 1,000 mg 05/19/25 08:15 05/19/25 07:28 Acetaminophen 500 Mg Tablet PO 05/19/25 08:16 1,000 mg PREOP ONE Administration Celecoxib 400 mg 05/19/25 08:15 05/19/25 07:27 Celecoxib 200 Mg Capsule PO 05/19/25 08:16 400 mg PREOP ONE Administration Dexamethasone Sodium Phosphate 10 mg 05/19/25 08:15 Dexamethasone 10 Mg/Ml Vial IV 05/19/25 08:16 INTRAOP ONE Gabapentin 600 mg 05/19/25 08:15 08/05/25 07:27 Gabapentin 600 Mg Tablet PO 08/05/25 08:16 600 mg PREOP ONE Administration Lactated Ringer's 1,000 mls @ 999 mls/hr 05/19/25 08:15 IV 05/19/25 09:15 .Q1H1M CESAR Cefazolin Sodium 2 gm/ Sodium 110 mls @ 150 mls/hr 05/19/25 08:15 Chloride IV 05/19/25 08:58 INTRAOP ONE Tranexamic Acid 2,000 mg/ 120 mls @ 280 mls/hr 05/19/25 08:15 Sodium Chloride IV 05/19/25 08:40 INTRAOP ONE Lactated Ringer's 1,000 mls @ 125 mls/hr 05/19/25 08:15 IV 05/19/25 16:14 .Q8H CESAR Insulin Human Lispro 1 - 6 unit 05/19/25 08:15 Insulin Lispro 100 Unit/Ml Insuln.Pen SC Q4H PRN PRN BG>/= 180, SEE PROTOCOL Protocol Scopolamine HBr 1 patch 05/19/25 08:15 05/19/25 07:26 Scopolamine 1mg/72hr Patch TD 05/19/25 08:16 1 patch PREOP ONE Administration PFSH Medical History Loss of hearing Depression [...] pain Essential hypertension Atherosclerotic heart disease of [place] coronary artery without angina pectoris Multi-vessel coronary artery stenosis (11/08/22) 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 Home Medications ?Medication ?Instructions ?Recorded ?Last Taken ?Type acetaminophen 325 mg tablet 650 mg PO Q4H PRN Pain 05/06 Unknown History cholecalciferol (vitamin D3) 10 10 mcg PO DAILY 05/18/25 History mcg (400 unit) capsule alprazolam 0.25 mg tablet (Xanax) 0.25 mg PO DAILY PRN anxiety #5 10/10/23 Unknown Rx tabs atorvastatin 80 mg tablet 40 mg (1/2 x 80 mg) PO QHS # 90 tabs 04/21/24 05/18/25 Rx fluoxetine 20 mg capsule 20 mg PO DAILY 10/31/2404/15 History allopurinol 100 mg tablet 200 mg PO QDAY 01/09/25/02/06 History metoprolol tartrate 25 mg tablet 12.5 mg (1/2 x 25 mg) PO BID #90 04/07/2505/18 Rx tabs aspirin 81 mg chewable tablet 81 mg PO DAILY 05/14/25 05/12/25 History (Alyse Chewable Low Dose Aspirin) Allergy/AdvReac Type Severity Reaction Status Date / Time No Known Allergies Allergy Verified 05/19/25 06:45 Family History Grandmother Breast cancer Father Prostate cancer Skin cancer CAD (coronary artery disease) Mother Hypertension High cholesterol Grandfather CAD (coronary artery disease) Surgical History Hx of colonoscopy History of cardiac catheterization History of coronary artery bypass surgery (~11/13/22) Social History current occupational status: employed 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 05/19/25 0741 <Electronically signed by Mahendra Puri MD> Date _ Mahendra Puri MD Cosigner Signature: Date CC: ~ Signed [facility] [facility] Work Phone: [phone]) 406-447008-05-2025 History and physical note Author Neville Mccall [facility] Note Date/Time May 19, 2025 7:0 7am [facility] Medical Records Department [address] [place] [address] History & Physical Exam 05/19/25 0706 MR#: [id number] Acct: [id number] Name: ANGELO,LAURA CHANDLER Rep #:[id number] : 1970 55 From: Neville Mccall DO PCP: Dr. Svitlana Becerril MD Status:REG SD C Location: [place] [address] History and Physical Date of Admission: 05/19/25 [facility] [address] [place] [id number] OFFICE VISIT Date of Service: 04/24/25 MR#: [id number] Acct: [id number] Name: ANGELOLAURA Henderson Rep #: [id number] : 1970 Provider: Dr. Neville Mccall DO Age/Sex: 55/M Location[place] [facility] [place] Status: Signed Intake Vital Signs 02/07/2508:04 Height 6 ft Intake Visit Reasons: RIGHT HIP Chief Complaint: Right hip follow-up Is patient in pain?: Yes (Right hip ) Pain scale (1-10): 2 Allergies No Known Allergies Allergy (Verified 04/24/25 11:20) Medications ?Medication ?Instructions ?Recorded ?Confirmed ?Type acetaminophen 325 mg tablet 650 mg PO Q4H PRN Pain 11/21/22 04/24/25 History aspirin 81 mg chewable tablet 81 mg PO DAILY 11/21/22 04/24/25 History (Alyse Chewable Low Dose Aspirin) cholecalciferol (vitamin D3) 10 10 mcg PO DAILY 09/19/23 04/24/25 Histor y mcg (400 unit) capsule alprazolam 0.25 mg tablet (Xanax) 0.25 mg PO DAILY PRN anxiety #5 10/10/23 04/24/25 Rx tabs atorvastatin 80 mg tablet 40 mg (1/2 x 80 mg) PO QHS #90 tabs 07/06/0704/24/25 Rx fluoxetine 20 mg capsule mg PO DAILY 10/31/24 04/24/25 History allopurinol 100 mg tablet 100 mg PO QDAY 01/09/25 04/24/25 History metoprolol tartrate 25 mg tablet 12.5 mg (1/2 x 25 mg) PO BID #90 5 04/24/25 Rx tabs PFSH Medical History Gout Wears glasses History of steroid therapy High cholesterol History of heart attack Former smoker History of echocardiogram Cardiology follow-up encounter BPH (benign prostatic hyperplasia) GI bleed Borderline type 2 diabetes mellitus Bilateral shoulder pain Essential hypertension Atherosclerotic heart disease of [place] coronary artery without angina pectoris Multi-vessel coronary artery stenosis (11/08/22) Alcohol abuse Tobacco abuse 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 Neville Mccall, DO 04/24/25 0864. Part of today?s visit was documented by [...] to gout, myalgia, anxiety depression, non-ST elevation VT, unstable angina, GI bleed, borderline type 2 diabetes, tobacco abuse(current vape), hypertension history of coronary artery bypass surgery, on Xanax here today for initial evaluation of right hip pain. He reports a 4 month history of hip pain. He saw his pcp and had x- rays and was referred to our office. 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 Head: Normocephalic Atraumatic Chest: symmetrical rise, non-labored breathing, no audible wheeze Abdomen: no guarding, non-rigid Supplemental Info 2025 x-ray right hip there [...] plan. 04/24/25 1204 <Electronically signed by Neville Mccall DO> Date Neville Mccall DO I have examined the patient and the H&P has been reviewed. There are no clinicalchanges since date of exam. 05/19/25 0707 <Electronically signed by eNville Mccall DO> Cosigner Signature (if applicable): CC: Dr. Svitlana Becerril MD; Dr. Neivlle Mccall DO~ Signed [facility] Work Phone: 1([phone]) 450-667208-05-2025 Consult note [facility] Medical Records Department [address] [place] [address] Pre-Anesthesia Evaluation 05/19/25 0740 MR#: [id number] Acct: [id number] Name: LAURA STEPHENS Rep #:[id number] : 1970 55 From: Mahendra Brito PCP: Dr. Svitlana Becerril MD Status:REG SD C Y Race: C Location: [place] [address] ASA Classification* ASA Classification ASA Classification: 2 Assessment & Plan Anesthesia* Anesthesia Assessment Anesthesia Assessment: Discussed sedation and/or anesthesia options, risks, benefits, and alternatives with patient/parents/legal guardian/POA. Questions invited. The patient/parents/legal guardian/POA seems to understand and agrees to proceedwith anesthesia plan. Reviewed the physical assessment, medical history, allergy history and patient home medications list prior to surgery/procedure/anesthetic and documented any changes. Performed airway and anesthesia risk assessments. Anesthesia Type Anesthesia Type: General, MAC and Spinal History Source History Obtained from:: Patient and Chart Anesthesia Focused Assessment* Temperature: 97.6 F Pulse Rate: 75 Blood Pressure: 111/72 Respiratory Rate: 18 Pulse Ox: 99 Oxygen Delivery Method: Room Air Airway Assessment Mouth opens: >3 cm Mallampati Score: II Teeth Condition: Missing Neck Range of motion (ROM): Full ROM Labs Anesthesia Preop lab: CBC WBC 7.3 K/mm3 (4.4-11.0) 05/14/25 11:19 05/14/25 RBC 4.67 M/mm3 (4.6-6.2) 05/14/25 11:19 05/14/25 Hgb 13.6 g/dL (13.0-16.5) 05/14/25 11:19 05/14/25 Hct 41.0 % (40-54) 05/14/25 11:19 05/14/25 Plt Count 293 K/mm3 (150-450) 05/14/25 11:19 05/14/25 CHEMISTRY Potassium 4.0 mmol/L (3.3-5.1) 05/14/25 11:19 05/14/25 Sodium 141 mmol/L (133-145) 05/14/25 11:19 05/14/25 Magnesium 2.0 mg/dL (1.5-2.2) 05/14/25 11:19 05/14/25 BUN 15 mg/dL (4-19) 05/14/25 11:19 05/14/25 Creatinine 0.99 mg/dL (0.70-1.20) 05/14/25 11:19 05/14/25 Glucose 123 mg/dL (70-99) H 05/14/25 11:19 05/14/25 TSH 1.20 uIU/mL (0.358-3.74) 08/30/23 15:54 COAG PT 13.9 SECONDS (11.7-14.9) 05/14/25 11:19 Pre-Assessment Diagnosis/Proposed Procedure Planned Operative Procedure(s): RIGHT TOTAL HIP ARTHROPLASTY Anesthesia History Anesthesia History - environmental associate: Anesthesia History - environmental associate Hx Hospitalization No 05/05/25 14:01 Any Problems With Anesthesia No 05/05/25 14:01 Cholinesterase deficiency No 05/05/25 14:01 You/Your Family Experience No 05/05/25 14:01 fever (hyperthermia) with Relationship Recent Exposure to Contagious No 05/19/25 06:48 Disease Does patient have nerve No 05/05/25 14:01 stimulator Patient instructed to have device shut off --Does patient have Pacemaker No 05/19/25 06:48 or ICD? When Was Last Pacemaker Check QUESTION #4 FULL TEXT: You/Your Family Experience fever (hyperthermia) with Anesthesia Last Oral Intake Last Oral intake: Last Oral Intake NPO since 04:00 05/19/25 06:48 Meds taken in AM with sips of No 05/19/25 06:48 water? Meds patient instructed to take am of surgery PONV PONV - environmental associate: PONV - environmental associate Female No 05/05/25 14:01 HX of Motion Sickness No 05/05/25 14:01 HX of N/V After Surgery No 05/05/25 14:01 Non-Smoker Yes 05/05/25 14:01 Duration of Surgery greater Yes 05/05/25 14:01 than 60 minutes Number of Risk Factors 2 05/05/25 14:01 PONV Score Moderate Risk 05/05/25 14:01 Height & Weight Height & Weight: Anesthesia: Height & Weight Height 6 ft 8.22 in 05/19/25 06:48 Weight: 110 kg 05/19/25 06:48 Body Mass Index (BMI) 26.4 05/19/25 06:48 Respiratory Assessment Respiratory Assessment - environmental associate: Respiratory Tract Infection Hx - environmental associate Hx Respiratory Tract Infection No 05/05/25 14:01 STOP Sleep Apnea STOP Sleep Apnea - environmental associate: STOP Sleep Apnea - environmental associate Hx Hypertension Yes: CONTROLLED WITH MED 05/05/25 [...] than talking or can be heard through closeddoors)? Tobacco Use History Tobacco Use History - environmental associate: Tobacco Use History - environmental associate Tobacco Use Smoking Status Current every day smoker 05/05/25 14:01 Hx Tobacco Use No 05/05/25 14:01 Years Smoking Packs Smoked per Day Smoking Cessation Date was Yes - quit smoking within 15 05/05/25 14:01 within the last 15 years years Hx Smoking Cessation Date Hx Smoking Cessation Counseling Hematologic Medial History Hematologic Hx - environmental associate: Hematologic Medical Hx - heritage consultant Hx of Blood Transfusion No 05/05/25 14:01 Hx of Transfusion in last 3 No 05/05/25 14:01 Months Date of Last Transfusion (if within last 3 months) Ever experience any problems No 05/05/25 14:01 with transfusion(s)? Specify any problems Hx of Preganancy in last 3 N/A 05/05/25 14:01 Months Nurse Filling Out Transfusion DSCHRIBER 05/05/25 14:01 & Questions: Date: 05/05/25 05/05/25 14:01 Time: 14:05 05/05/25 14:01 Patient unable to answer at this time (ie. confused, unrespo /Reproduction History /Reproductive History - environmental associate: /Reproductive Hx- environmental associate Hx Now No 05/05/25 14:01 Gestational Age (in weeks): EDC: Hx Hx Para Hx Section SAB No 05/05/25 14:01 Active Medications Active Medications: Current Medications Generic Name Dose Route Start Last Admin Trade Name Freq PRN Reason Stop Dose Admin Acetaminophen 1,000 mg 05/19/25 08:15 05/19/25 07:28 Acetaminophen 500 Mg Tablet PO 05/19/25 08:16 1,000 mg PREOP ONE Administration Celecoxib 400 mg 05/19/25 08:15 05/19/25 07:27 Celecoxib 200 Mg Capsule PO 05/19/25 08:16 400 mg PREOP ONE Administration Dexamethasone Sodium Phosphate 10 mg 05/19/25 08:15 Dexamethasone 10 Mg/Ml Vial IV 05/19/25 08:16 INTRAOP ONE Gabapentin 600 mg 05/19/25 08:15 05/19/25 07:27 Gabapentin 600 Mg Tablet PO 05/19/25 08:16 600 mg PREOP ONE Administration Lactated Ringer's 1,000 mls @ 999 mls/hr 05/19/25 08:15 IV 05/19/25 09:15 .Q1H1M CESAR Cefazolin Sodium 2 gm/ Sodium 110 mls @ 150 mls/hr 05/19/25 08:15 Chloride IV 05/19/25 08:58 INTRAOP ONE Tranexamic Acid 2,000 mg/ 120 mls @ 280 mls/hr 05/19/25 08:15 Sodium Chloride IV 05/19/25 08:40 INTRAOP ONE Lactated Ringer's 1,000 mls @ 125 mls/hr 05/19/25 08:15 IV 05/19/25 16:14 .Q8H CESAR Insulin Human Lispro 1 - 6 unit 05/19/25 08:15 Insulin Lispro 100 Unit/Ml Insuln.Pen SC Q4H PRN PRN BG>/= 180, SEE PROTOCOL Protocol Scopolamine HBr 1 patch 05/19/25 08:15 05/19/25 07:26 Scopolamine 1mg/72hr Patch TD 05/19/25 08:16 1 patch PREOP ONE Administration PFSH Medical History Loss of hearing Depression [...] pain Essential hypertension Atherosclerotic heart disease of [place] coronary artery without angina pectoris Multi-vessel coronary artery stenosis (11/08/22) 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 Home Medications ?Medication ?Instructions ?Recorded ?Last Taken ?Type acetaminophen 325 mg tablet 650 mg PO Q4H PRN Pain 05/06 Unknown History cholecalciferol (vitamin D3) 10 10 mcg PO DAILY 05/18/25 History mcg (400 unit) capsule alprazolam 0.25 mg tablet (Xanax) 0.25 mg PO DAILY PRN anxiety #5 10/10/23 Unknown Rx tabs atorvastatin 80 mg tablet 40 mg (1/2 x 80 mg) PO QHS # 90 tabs 04/21/24 05/18/25 Rx fluoxetine 20 mg capsule 20 mg PO DAILY 10/31/2404/15 History allopurinol 100 mg tablet 200 mg PO QDAY 01/09/25 08/02/06 History metoprolol tartrate 25 mg tablet 12.5 mg (1/2 x 25 mg) PO BID #90 04/07/2505/18 Rx tabs aspirin 81 mg chewable tablet 81 mg PO DAILY 05/14/25 05/12/25 History (Alyse Chewable Low Dose Aspirin) Allergy/AdvReac Type Severity Reaction Status Date / Time No Known Allergies Allergy Verified 05/19/25 06:45 Family History Grandmother Breast cancer Father Prostate cancer Skin cancer CAD (coronary artery disease) Mother Hypertension High cholesterol Grandfather CAD (coronary artery disease) Surgical History Hx of colonoscopy History of cardiac catheterization History of coronary artery bypass surgery (~11/13/22) Social History current occupational status: employed 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 05/19/25 0741 MD> Date _ Mahendra Puri MD Cosigner Signature: Date CC: ~ Signed [facility]08-05-2025 History and physical note [facility] Medical Records Department [address] [place] [address] History & Physical Exam 05/19/25705 MR#: [id number] Acct: [id number] Name: LAURA STEPHENS Rep #:[id number] : 1970 55 From: Neville Mccall DO PCP: Dr. Svitlana Becerril MD Status:REG SD C Location: [place] [address] History and Physical Date of Admission: 05/19/25 [facility] [address] [place] [address] OFFICE VISIT Date of Service: 04/24/25 MR#: [id number] Acct: [id number] Name: LAURA STEPHENS Rep #: [id number] : 1970 Provider: Dr. Neville Mccall DO Age/Sex: 55/M Location: [facility] [place] Status: Signed Intake Vital Signs 02/07/2508:04 Height 6 ft Intake Visit Reasons: RIGHT HIP Chief Complaint: Right hip follow-up Is patient in pain?: Yes (Right hip ) Pain scale (1-10): 2 Allergies No Known Allergies Allergy (Verified 04/24/25 11:20) Medications ?Medication ?Instructions ?Recorded ?Confirmed ?Type acetaminophen 325 mg tablet 650 mg PO Q4H PRN Pain 11/21/22 04/24/25 History aspirin 81 mg chewable tablet 81 mg PO DAILY 11/21/22 04/24/25 History (Alyse Chewable Low Dose Aspirin) cholecalciferol (vitamin D3) 10 10 mcg PO DAILY 09/19/23 04/24/25 Histor y mcg (400 unit) capsule alprazolam 0.25 mg tablet (Xanax) 0.25 mg PO DAILY PRN anxiety #5 10/10/23 04/24/25 Rx tabs atorvastatin 80 mg tablet 40 mg (1/2 x 80 mg) PO QHS #90 tabs 07/06/0704/24/25 Rx fluoxetine 20 mg capsule mg PO DAILY 10/31/24 04/24/25 History allopurinol 100 mg tablet 100 mg PO QDAY 01/09/25 04/24/25 History metoprolol tartrate 25 mg tablet 12.5 mg (1/2 x 25 mg) PO BID #90 5 04/24/25 Rx tabs PFSH Medical History Gout Wears glasses History of steroid therapy High cholesterol History of heart attack Former smoker History of echocardiogram Cardiology follow-up encounter BPH (benign prostatic hyperplasia) GI bleed Borderline type 2 diabetes mellitus Bilateral shoulder pain Essential hypertension Atherosclerotic heart disease of [place] coronary artery without angina pectoris Multi-vessel coronary artery stenosis (11/08/22) Alcohol abuse Tobacco abuse 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 He states his uric acid levelis down to 6 as of March 16. The hip is popping and and clicking with movement and ROM. He is no longer taking the Indomethacin because it was not helpful. He does take Ibuprofen now as needed with minimal relief. Hereports ongoing issues with sleep at night due to the pain. The pain is still onthelateral side and going into the groin. He denies numbness or tingling into the leg. No recent PT orpain management. Patient's right knee started bothering him over the last 6 months and he noticesincreased pain whenstanding longer periods. 02/06/2025 visit: 54 year old [...] rates his pain /10 today. Patient states hedid nonweight-bearing the best he could but when [...] gout will not be resolved with hip ar throplasty. Recommend continued lowering of uric acid and see where he is at in terms of pain control and function. We would need uric acid levels within normal range and he would need to quit vapingfor 6 weeks if treatment plan tookus towards arthroplasty . Recommend patient follow-up in 6 weeks to see if the uric acid levels have decreased and see how he is doing pain lazo. Will give patient aprescription for indomethacin and he should take it [...] to gout, myalgia, anxiety depression, non-ST elevation VT, unstable angina, GI bleed, borderline type 2 diabetes, tobacco abuse(current vape), hypertension history of coronary artery bypass surgery, on Xanax here today for initial evaluation of right hip pain. He reports a 4 month history of hip pain. He saw his pcp and had x-rays and was referred to our office. He reports the pain extends into his groin and downthe lateral hip into the thigh. He denies injury or surgery to the hip. He takes Ibuprofen as needed for the pain. He has not seen pain management or done PT. He does get some popping in the hip at [facility] and it sometimes wakes him up at night. He was a heavy drinker up until about 2 years ago, he does still drink just not as heavily. He denies any history of cocaine use or scuba diving or extended steroid use. Of note his pain is worse over the posterior lateral hip than it is in the groin doesextendinto the groin to a lesser degree his [...] he does still drink but not as heavily.I advised patient that the popping that he is having over the lateral hip is likely from inflammation of the iliotibial band. Patient wishes to proceed with being non weightbearing for 6 weeks and ost eoporosis medication. I spoke with patient that we will reach out to his juice weigher to see if he is able to take NSAIDs given his history if cleared wewill send him an NSAID as well. Ortho [...] of 5 hip flexion strength he does getmild discomfort with hip range of motion but it is worse onthe lateral side of his hip. No gross motor or sensory deficits right lower extremity. 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 New flatteningof the articular surface of the right superior [...] with left JENNIE. Patient would like to proceedwith JENNIE at this time. Risks, benefits and [...] his convenience and Iwill call him to goover the results. Depending on what the x-ray shows we can talk about his options. He should not take any Ibuprofen, Indemethacin or any NSAIDs 7day prior to surgery. He will need medical and cardiac clearance and a CT scan Tentative surgery date 05/19/2025 same-day surgery Follow up after surgery for post-op appointment or sooner if pain, swelling, numbness or associatedsymptoms, or concerns develop. All questions answered. Patient in agreement of plan. 04/24/25 1204 Date Neville Mccall DO I have examined the patient and the H&P has been reviewed. There are no clinicalchanges since date of exam. 05/19/25 0707 Cosigner Signature (if applicable): CC: Dr. Svitlana Becerril MD; Dr. Neville Mccall, DO~ Signed [facility]08-05-2025 [facility] Medical Records Department [address] [place] [address] History Physical Exam 05/19/25 0706 MR#: [id number] Acct: [id number] Name: LAURA STEPHENS Rep #: [id number] : 1970 55 From: Neville Mccall DO PCP: Dr. Svitlana Becerril MD Status:[facility] Location: [place] [address] History and Physical Date of Admission: 05/19/25 [facility] [address] [place] [address] OFFICE VISIT Date of Service: 04/24/25 MR#: [id number] Acct: [id number] Name: LAURA STEPHENS Rep #: [id number] : 1970 Provider: Dr. Neville Mccall DO Age/Sex: 55/M Location: [facility] [place] Status: Signed Intake Vital Signs 02/07/2508:04 Height 6 ft Intake Visit Reasons: RIGHT HIP Chief Complaint: Right hip follow-up Is patient in pain?: Yes (Right hip ) Pain scale (1-10): 2 Allergies No Known Allergies Allergy (Verified 04/24/25 11:20) Medications ???Medication ???Instructions ???Recorded ???Confirmed ???Type acetaminophen 325 mg tablet 650 mg PO Q4H PRN Pain 11/21/22 04/24/25 History aspirin 81 mg chewable tablet 81 mg PO DAILY 11/21/22 04/24/25 History (Alyse Chewable Low Dose Aspirin) cholecalciferol (vitamin D3) 10 10 mcg PO DAILY 09/19/23 04/24/25 History mcg (400 unit) capsule alprazolam 0.25 mg tablet (Xanax) 0.25 mg PO DAILY PRN anxiety #5 10/10/23 04/24/25 Rx tabs atorvastatin 80 mg tablet 40 mg (1/2 x 80 mg) PO QHS #90 tabs 04/21/2404/24 Rx fluoxetine 20 mg capsule mg PO DAILY 10/31/24 04/24/25 History allopurinol 100 mg tablet 100 mg PO QDAY 01/09/25 04/24/25 History metoprolol tartrate 25 mg tablet 12.5 mg (1/2 x 25 mg) PO BID #90 04/07/25 04/24/25 Rx tabs PFSH Medical History Gout Wears glasses History of steroid therapy High cholesterol History of heart attack Former smoker History of echocardiogram Cardiology follow-up encounter BPH (benign prostatic hyperplasia) GI bleed Borderline type 2 diabetes mellitus Bilateral shoulder pain Essential hypertension Atherosclerotic heart disease of [place] coronary artery without angina pectoris Multi-vessel coronary artery stenosis (11/08/22) Alcohol abuse Tobacco abuse 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 Surgical History History of cardiac catheterization History of coronary artery bypass surgery ( 11/13/22) Family History Grandmother Breast cancerFather Prostate cancer Skin cancer CAD (coronary artery disease)Mother Hypertension High cholesterolGrandfather CAD (coronary artery disease) Social History 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 Svitlana Becerril MD Status: REG CL I Study:Extremity Lower without Contra Date of Exam: 05/13/25 Exam# [id number] Ordering Dr: Neville Mccall DO PROCEDURE: EXTREMITY [...] of the right femoral head articular surface. Thereis no dislocation. Adjacent muscular structures appear intact. Pelvic bones appear intact. Atheroscleroticcalcifications are visible. There is no pathologic adenopathy. 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 Reading Location: [facility] CC: Dr. Svitlana Becerril MD; Dr. Neville Mccall DO ~ Coagulating Operator: Signed [facility]07-11-2025 Evaluation note* Diagnosis Onset Date Resolution Status Admit Date AVN of femur acute April 24, 11:18am Atherosclerotic heart diseas e of [place] coronary artery without angina pectoris acute April 10:13am Preop cardiovascular exam acute May 14, 2025 10:13am High cholesterol chronic April 10:13am AVN of femur acute June 01, 2025 1:04pm Other acute postprocedural pain acut e June 01, 2025 1:04pm Status post right hip replacement acute June 01 1:04pm Status post right hip replacement acute June 29, 2025 12:45pm [facility] Work Phone: [phone] 475-461407-11-2025 [facility] [place] [address] OFFICE VISIT Date of Service: 04/24/25 MR#: [id number] Acct: [id number] Name: LAURA STEPHENS Rep #: [id number] : 1970 Provider: Dr. Yuri Mccall DO Age/Sex: 55/M Location: [facility] [place] Status: Signed Intake Vital Signs 02/06/25 08:04 [...] pain Essential hypertension Atherosclerotic heart disease of [place] coronary artery without angina pectoris Multi-vessel coronary [...] hip pain. He states his uric acid levelis down to 6 as of March 16. The hip is popping and and clicking with movement and ROM. He is no longer taking the Indomethacin because it was not helpful. He does take Ibuprofen now as needed with minimal relief. Hereports ongoing issues with sleep at night due to the pain. The pain is still onthelateral side and going into the groin. He denies numbness or tingling into the leg. No recent PT orpain management. Patient's right knee started bothering him over the last 6 months and he noticesincreased pain whenstanding longer periods. 02/06/2025 visit: 54 year old [...] rates his pain 2/10 today. Patient states hedid nonweight-bearing the best he could but when [...] gout will not be resolved with hip ar throplasty. Recommend continued lowering of uric acid and see where he is at in terms of pain control and function. We would need uric acid levels within normal range and he would need to quit vapingfor 6 weeks if treatment plan tookus towards arthroplasty . Recommend patient follow-up in 6 weeks to see if the uric acid levels have decreased and see how he is doing pain lazo. Will give patient aprescription for indomethacin and he should take it [...] to gout, myalgia, anxiety depression, non-ST elevation VT, unstable angina, GI bleed, borderline type 2 diabetes, tobacco abuse(current vape), hypertension history of coronary artery bypass surgery, on Xanax here today for initial evaluation of right hip pain. He reports a 4 month history of hip pain. He saw his pcp and had x-rays and was referred to our office. He reports the pain extends into his groin and downthe lateral hip into the thigh. He denies injury or surgery to the hip. He takes Ibuprofen as needed for the pain. He has not seen pain management or done PT. He does get some popping in the hip at [facility] and it sometimes wakes him up at night. He was a heavy drinker up until about 2 years ago, he does still drink just not as heavily. He denies any history of cocaine use or scuba diving or extended steroid use. Of note his pain is worse over the posterior lateral hip than it is in the groin doesextendinto the groin to a lesser degree his [...] a AVN lesion in his left hipsince 2020 initially had pain that subsequently resided and [...] he does still drink but not as heavily.I advised patient that the popping that he is having over the lateral hip is likely from inflammation of the iliotibial band. Patient wishes to proceed with being non weightbearing for 6 weeks and ost eoporosis medication. I spoke with patient that we will reach out to his juice weigher to see if he is able to [...] of 5 hip flexion strength he does getmild discomfort with hip range of motion but [...] in the right superior femoral head. New flatteningof the articular surface of the right superior [...] with left JENNIE. Patient would like to proceedwith JENNIE at this time. Risks, benefits and [...] his convenience and Iwill call him to goover the results. Depending on what the x-ray shows we can talk about his options. He should not take any Ibuprofen, Indemethacin or any NSAIDs 7day prior to surgery. He will need medical and cardiac clearance and a CT scan Tentative surgery date 05/19/2025 same-day surgery Follow up after surgery for post-op appointment or sooner if pain, swelling, numbness or associatedsymptoms, or concerns develop. All questions answered. Patient in agreement of plan. 04/24/25 1204 o DO> Date _ Neville Mccall DO Cosigner Signature: Date (if applicable) CC: ~ [facility]07-11-2025 Progress note Author Neville Mccall [facility] Note Date/Time 2025 12:0 4pm [facility] [address] [place] [address] OFFICE VISIT Date of Service: 04/24/25 MR#: [id number] Acct: [id number] Name: LAURA STEPHENS Rep #: [id number] : 1970 Provider: Dr. 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 Surgical History History of cardiac catheterization History of coronary artery bypass surgery (~11/13/22) Family History Grandmother Breast cancer Father Prostate cancer Skin cancer CAD (coronary artery disease) Mother Hypertension High cholesterol Grandfather CAD (coronary artery disease) Social History 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 He reports a 4 month history of hip pain. He saw his pcp and had x- rays and was referred to our office. He [...] that we will reach out to his juice weigher to see if he is able to [...] plan. 04/24/25 1204 <Electronically signed by Neville muhammad DO> Date _ Neville Mccall DO Cosigner Signature: Date (if applicable) CC: ~ [place] [facility] Work Phone: 1(371) 859-763606-02-2025 Radiology Diagnostic study note [facility] Imaging Services [address], [place] [address] Foot min 3 Views MR#: [id number] Acct: [id number] Name: LAURA STEPHENS Rep #: [id number] : 1970 M 54 From: Apolonia Haskins MD PCP: Dr. Svitlana Becerril MD Status: REG CL I Study:Foot min 3 Views Date of Exam: 12/09 Exam# [id number] Ordering Dr: Alexandra Becerril MD PROCEDURE: FOOT MIN 3 VIEWS 03/16/2025 REASON FOR EXAM: LEFT FOOT PAIN TECHNIQUE: 3 views of the left foot. COMPARISON: None FINDINGS: Bones: No visible fracture. No suspicious bone lesion. Joints: Normal alignment. Joint spaces preserved. No arthropathic features. Soft tissues: Soft tissues are unremarkable. RAD/Foot min 3 Views IMPRESSION: Unremarkable radiographs of the left foot. Reading Location: [id number] CC: Dr. Svitlana Becerril MD ~ Coagulating Operator: Signed [facility]04-25-2025 Evaluation note* Diagnosis Onset Date Resolution Status Admit Date AVN of femur acute February 06, 2025 7:57am Gout acute February 06 7:57am Hip pain acute February 06 7:57am Tobacco abuse acute February 06, 2025 7:57am AVN of femur acute April 24, 025 11:18am Atherosclerotic heart diseas e of [place] coronary artery without angina pectoris acute May 14, 2025 10:13am High cholesterol acute April 10:13am Preop cardiovascular exam acute May 14, 2025 10:13am [place] [employer] [facility] Work Phone: 1(351) 112-453304-25-2025 Evaluation note* Diagnosis Onset Date Resolution Status Admit Date AVN of femur acute February 06, 2025 7:57am Gout acute February 06 7:57am Hip pain acute February 06 7:57am Tobacco abuse acute February 06, 2025 7:57am AVN of femur acute April 24 11:18am Atherosclerotic heart diseas e of [place] coronary artery without angina pectoris acute May 14, 2025 10:13am Preop cardiovascular exam acute May 14, 2025 10:13am High cholesterol chronic April 10:13am [facility] Work Phone: 1([phone]) 848-436104-25-2025 Evaluation note* Diagnosis Onset Date Resolution Status Admit Date AVN of femur acute February 06, 2025 7:57am Gout acute February 06 7:57am Hip pain acute February 06 7:57am Tobacco abuse acute February 06, 2025 7:57am AVN of femur acute April 24 025 11:18am Atherosclerotic heart diseas e of [place] coronary artery without angina pectoris acute May 14, 2025 10:13am Preop cardiovascular exam acute May 14, 2025 10:13am High cholesterol chronic April 10:13am AVN of femur acute June 01, 2025 1:04pm Other acute postprocedural pain acut e June 01, 2025 1:04pm Status post right hip replacement acute June 01 1:04pm [place] [employer] [facility] Work Phone: 1(646) 625-485703-28-2025 Evaluation note* Diagnosis Onset Date Resolution Status Admit Date AVN of femur acute January 09, 2025 8:58am Gout acute January 09 8:58am Hip pain acute January 09 8:58am Tobacco abuse acute January 09, 2025 8:58am AVN of femur acute February 06, 2025 7:57am Gout acute February 06 7:57am Hip pain acute February 06 7:57am Tobacco abuse acute February 06, 2025 7:57am [facility] Work Phone: 1(224) 477-638603-28-2025 Evaluation note* Diagnosis Onset Date Resolution Status [...] AVN of femur acute April 24 11:18am [facility] Work Phone: 1(390) 574-523201-17-2025 Evaluation note* Diagnosis Onset Date Resolution Status Admit Date 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 Author Type: Nurse Practitioner Type: [...] history is provided by the patient. No foreign language teacher was used. Musculoskeletal Problem This is a [...] is present. Musculoskeletal: Genera (more content not included)...[facility]12-16-2024 History of Present illness Narrative* Penny Soto, MIGNON.CONCRETE ENGINEERING TECHNICIAN - 09/29/2024 4:49 PM EST This note [...] history is provided by the patient. No foreign language teacher was used. Musculoskeletal Problem This is a [...] ED Penny Soto APRN.CNP [facility] Tele[facility] encounter Note * Telephone Encounter - Penny Soto APRN.CNP - 07/15/2024 3:58 PM EDT Uric acid returns with level of 10.3 CMP returns with blood sugar of 108 Discussed etiology and sx management related to gout. Avoid trigger foods F/U with PCP [facility]10-01-2024 Miscellaneous Notes* Telephone Encounter - Penny Soto APRN.CNP - 07/15/2024 3:58 PM EDT Uric acid returns with level of 10.3 CMP returns with blood sugar of 108 Discussed etiology and sx management related to gout. Avoid trigger foods F/U with PCP * Telephone Encounter - Penny Soto APRN.CNP - 07/15/2024 2:45 PM EDT CBC normal [facility]Tr[facility]24 Telephone encounter Note * Telephone Encounter - Penny Soto APRN.CNP - 07/15/2024 2:45 PM EDT CBC normal [facility]10-01-2024 History of Present illness Narrative* Trevor Mckay [...] PATIENT PRESENTS WITH AN IMPLANTABLE OR ATTACHED INSOLE BEVELER: No RADIOLOGY DEPARTMENT: General X-ray: Exam(s) Completed: Lower Extremity X- Ray(s): Foot, Left PERIPHERAL IV DATA: Not applicable SIGNED BY: RT Jeramy(R) July 15, 2024 2:03 PM documented in this [facility]Tr[facility]-2024 NoteHNO ID: [id number] Author: TREVOR MCKAY RT(Eliel) Service: ? Author Type: Exercise Science Internship Type: Progress Notes Filed: 07/15/2024 14:03 Note [...] PATIENT PRESENTS WITH AN IMPLANTABLE OR ATTACHED INSOLE BEVELER: No RADIOLOGY DEPARTMENT: General X-ray: Exam(s) Completed: Lower Extremity X-Ray(s): Foot, Left PERIPHERAL IV DATA: Not applicable SIGNED BY: RT Jeramy(R) July 15, 2024 2:03 [facility]10-01-2024 NoteHNO ID: [id number] Author: PENNY SOTO APRN.CONCRETE ENGINEERING TECHNICIAN Service: ? Author Type: Nurse Practitioner Type: [...] history is provided by the patient. No foreign language teacher was used. Pain (foot) Pain location: left [...] wheezing, rhonchi or ra (more content not included)...[facility]10-01-2024 History of Present illness Narrative* Penny Soto APRN.CONCRETE ENGINEERING TECHNICIAN - 07/15/2024 1:34 PM EDT This note was created using NoteWriter. Subjective [...] history is provided by the patient. No foreign language teacher was used. Pain (foot) Pain location: left [...] will reach out with results. Penny Soto APRN.CONCRETE ENGINEERING TECHNICIAN documented in this encounterTr[facility]23 History of Present illness Narrative* Liss Espinoza [...] IV DATA: Not applicable SIGNED BY: RT Erich(R) May 01, 2023 1:08 PM documented in this encounterTr[facility]07-[facility]-2023 History of Present illness Narrative* Patel Marcus APRN.CONCRETE ENGINEERING TECHNICIAN - 05/01/2023 12:51 PM EDT Subjective HPI [...] - PREDNISONE 10 MG TABLET Patel Marcus APRN.CONCRETE ENGINEERING TECHNICIAN documented in this encounterTr[facility]06-16-2023 Procedure [facility]06-16-2023 Procedure [facility]02-04-2023 Miscellaneous Notes* Nursing Notes - [...] goal of average po being 75-100%. 5. event technician to follow. * Plan of Care [...] out over last 24 hrs, CT 4 [id number] out over last 24 hrs Other: Pre-procedure [...] Ongoing * Plan of Care - Comfort Gunn PT - 11/14/2022 7:55 AM EST Problem: [...] RN - 11/13/2022 10:51 PM EST 11/13 1940 Patient arrived at bedside from OR. 1945 Patient assessment as charted. 2240 MDADY Nilson aware of most recent ABG and extubation parameters. 11/14 0000 Patient reassessment unchanged except as charted. 0400 Patient reassessment unchanged except as charted. * Brief Op Note - Pallavi Mccabe DO - 11/13/2022 7:10 PM EST Laura Stephens ([id number]) PRE OPERATIVE DIAGNOSIS CAD (coronary artery disease) [...] Anesthesiologist: Sofia Alatorre MD; Bianka Mcqueen MD INSTRUCTOR SUBSTITUTE COSMETOLOGY: Nolberto Martinez, PHYSICS FACULTY MEMBER-INSTRUCTOR SUBSTITUTE COSMETOLOGY; Bryanna Ross PHYSICS FACULTY MEMBER-INSTRUCTOR SUBSTITUTE COSMETOLOGY Varnish Melter Helper Assisting: Trevor Alvarenga MD Financial Manager: Laura Duong; Maximilian Stephenson SURGICAL STAFF Pin Drafting Machine Operator: Lalito Dykes RN Physician News Commentator: Lety Coello PA-C Registered Nurse Spinner Frame: Ankita Vital RN; Hetal Rich RN; YULISA Hdez Relief Pin Drafting Machine Operator: Coral Castro RN; Patricia Gallo RN Relief Scrub: Nancy Chavez; Jevon Cardozo Scrub Person: Crista Cielo Treatment Nurse: Cecilia Woodall RN Fellow: Pallavi Mccabe DO Production Metal Sprayer: Odilon Salter COMPLICATIONS None ESTIMATED BLOOD LOSS Unable to estimate due to CPB SPECIMENS No specimen sent * No specimens in log * Pallavi Mccabe DO November 13, 2022 7:10 PM * Op [...] was incised, probed proximally and distally with Mike dilator and then reverse saphenous vein graft anastomosed in end-to-side fashion using running 7-0 Prolene suture. Antegrade cardioplegia down the vein demonstrated good flow and hemostasis. Heart was returned to it normal position. Dose of antegrade cardioplegia down the aortic root. the anterior wall. The mid LAD was incised, probed proximally and distally with RobHackHandsek dilator. Proximally, there was moderate atheromatous plaque. The left internal mammary artery was anastomosed in end-to-side fashion using running 7-Turkmen suture. Prior to completing anastomosis, toe and [...] X plate at the inferior portion. A 24-Turkmen Amy drain was placed over these dural [...] Derek Jara MD, PhD ATTENDING BAW/MedShannan JOB: [id number] DOC: [id number] * Plan of Care - Maricruz Bailey [...] Outcome: Ongoing Goal: Individualization & Mutuality 11/11/2022 171 by Maricruz Bailey RN Outcome: Ongoing 11/11/2022 171 by Maricruz Bailey RN Outcome: Ongoing Goal: Discharge Needs Assessment 11/11/2022 1716 by Maricruz Bailey RN Outcome: Ongoing 11/11/2022 171 by Maricruz Bailey RN Outcome: Ongoing Goal: Interdisciplinary Rounds/Family Conf 11/11/2022 1716 by Maricruz Bailey RN Outcome: Ongoing 11/11/2022 1716 by Maricruz Bailey RN Outcome: Ongoing Problem: Fall/Trauma/Injury Risk (Adult) Goal: Fall/Trauma/Injury Risk: Absence of Trauma/Injury/Falls Description: Patient will demonstrate the desired outcomes. 11/11/2022 171 by Maricruz Bailey RN Outcome: Ongoing 11/11/20221715 by Maricruz Bailey RN Outcome: Ongoing Goal: Knowledge of risk factors/behavior modification Description: Knowledge of risk factors/behavior modification for fall/injury prevention 11/11/2022 171 by Maricruz Bailey RN Outcome: Ongoing 11/11/20221715 by Maricruz Bailey RN Outcome: Ongoing Problem: [...] Outcome: Ongoing * Plan of Care - Andrew Lawson APRN-CONCRETE ENGINEERING TECHNICIAN - 11/10/2022 8:56 AM EST CARDIAC SURGERY CONSULT NOTE Cardiac Surgery Pre-op Enhanced Surgical Recovery Screening Social History: Caregiver: Smoking cessation: patient counseled Nicotine Dependence Use per Day: 1 Patient is ready to quit Quit Date: 11/07 Discussed pharmacotherapy. Offered Rx to be sent to pharmacy of choice. We discussed health risks and resources. Offered referral to [facility] Smoking Cessation clinic (AMB REFERRAL TO SMOKING [...] for most of the day) [0] Total Y Mini-Cog Screening Utilized for patients with known [...] need for further evaluation of cognitive status. [facility] MST Nutrition Screening 1. Recent unintentional weight [...] g/dL Final For Hgb <12 refer to [facility] Blood Conservation and Anemia Guideline Consult placed [...] AM EST On admission to , from [facility] a dual RN initial assessment of skin [...] Rounds/Family Conf Outcome: Ongoing * Certification - Forrest Ramirez APRN-CHRISTOPHE - 11/09/2022 12:25 AM EST I certify that this patient requires inpatient services at this time. I anticipate the expected length of stay will include at least two midnights. Inpatient services are due to the following medicalconcerns NSTEMI, CABG evaluation. Plans for post hospitalization care will be discharge to home. Forrest Ramirez, MIGNON-CHRISTOPHE Certified Nurse Practitioner Cardiothoracic Surgery [id number] documented in [facility] History of Present illness Narrative* DAWOOD Redmond [...] already owns a walker, shower bench, and relationship assoc. Mrs. Stephens will drive her home from [...] goal of average po being 75-100%. 5. event technician to follow. Laura Stephens is a 52 y.o. male admitted with a past medical history of ETOH use and nicotine dependence. [facility] with symptoms of Chest pain radiating to his left shoulder and down left arm, shortness of breath, transient nausea, and fatigue associated with shoveling snow at work the morning of 11/08/2022. EMS was called and patient transported to ED for further evaluation. Patient states his symptoms improved during transport and reports no chest pain or other symptoms on arrival to [facility]. Patient uncertain but may have experienced similar but less severe. Met with patient today at bedside wearing mask and eye protection. Steaming Machine Operator Screening Pt's appetite is good. Pt with [...] Oral Supplement Food Allergies reviewed:None Cultural or Samaritan Restrictions/Preferences: None Skin Dak[place]ah Score: 19 Pt [...] to PO and weight changes. GIOVANNY MendiolaR Pager:[phone] * Jarocho Candelario PT - 11/17/2022 1:19 PM EST Physical Therapy Attempt Note 11/17/2022 PT Therapy Completed: Attempted Attempted Reason: (witnessed pt ambulating multiple laps with this morning, with rollator, no assistance. PT will monitor at this point.) Jarocho Candelario PT Time In: 1318 Time Out: 1318 [...] YURI drain Pacing Wires - Removed 11/15/22 Sutures/Shasha/Wound vac -- Median sternotomy, LLE vein harvest [...] -- Patient too ill for education Disposition: [facility] Conrad Manriquez PA-C Cardiac Surgery MADDY Phone #: [phone] * Madison Arias - 11/16/2022 3:12 PM [...] When to Call the Doctor HUEY Green [phone] IP Cardiopulmonary & Vascular Rehab Madison Arias MS Inpatient Cardiopulmonary Rehab ([phone]) * Hilary East OT - 11/16/2022 11:47 [...] Edema: Mobility Assessment/Intervention: Supine to Sit Mobility [place] Level: Supine->Sit: contact guard assist Bed Features/Set-up: Supine->Sit: Head of bed elevated Skilled Rationale: Sequencing, Hand placement, Verbal cues Skilled Intervention/Details: Supine->Sit: Pt demo log roll technique Transfer Assessment/Intervention: Sit to Stand Transfer [place] Level: Sit->Stand: stand-by assist Assistive Device: Sit->Stand: rollator Skilled Rationale: Hand placement, Verbal cues Skilled Intervention/Details: Sit->Stand: x1 EOB x1 chair Stand to Sit Transfer [place] Level: Stand->Sit: stand-by assist Assistive Device: Stand->Sit: rollator Skilled Rationale: Hand placement, Sequencing Skilled Intervention/Details: Stand->Sit: x2 chair, cues for slow descent Functional Mobility: Functional Mobility [place] Level: Functional Mobility/Gait: stand-by assist Assistive Device: [...] and standing I/ADL tasks. Outcome Score(s): CURRENT -[facility] Daily Activity Inpatient Short Form Putting on/Taking Off Lower Body Clothin - A Little Assistance Bathin - A Little Assistance Toiletin - A Little Assistance Putting on/Taking Off Upper Body Clothin - A Little Assistance Groomin - A Little Assistance Eatin - No Assistance CURRENT AM-PAC Activity Raw Score: 19 CURRENT AM-PAC Activity Functional Limitation/Modifier: 42.80% Currently Impaired in [...] with PT/OT OBJECTIVE LABS: Recent Labs 11/13/22 19511/13/22 2111 11/16/22 0556 11/16/22 0631 WBC 18.23* [...] YURI drain Pacing Wires - Removed 11/15/22 Sutures/Shasha/Wound vac -- Median sternotomy, LLE vein harvest [...] Manriquez PA-C Cardiac Surgery [facility] Phone #: [phone] * Jarocho Candelario, PT - 11/16/2022 8:47 AM EST Acute Physical Therapy Treatment Prior to Admission [facility] score(s): PRIOR LEVEL AM-PAC Mobility Raw Score: [...] strategies Mobility Assessment/Intervention: Supine to Sit Mobility [place] Level: Supine->Sit: contact guard assist Bed Features/Set-up: Supine->Sit: Head of bed elevated Skilled Rationale: Hand placement, Verbal cues, Tactile cues, Technique of activity, Initiation andexecution of task, Breathing strategies Sit to Supine Mobility [place] Level: Sit->Supine: minimum assist (75% patient effort) Bed Features/Set-up: Sit->Supine: Flat Skilled Rationale: Hand placement, Verbal cues, Tactile cues, Technique of activity, Breathing strategies, Maintain precautions Transfer Assessment/Intervention: Sit to Stand Transfer [place] Level: Sit->Stand: stand-by assist Skilled Rationale: Hand placement, Verbal cues, Facilitate anterior shift, Full extension to upright positioning/posture, Technique of activity, Breathing strategies, Maintain precautions Skilled Intervention/Details: Sit->Stand: x 8 total from EOB Stand to Sit Transfer [place] Level: Stand->Sit: stand-by assist Skilled Rationale: Hand placement, Verbal cues, Controlled descent for sitting, Technique of activity, Breathing strategies, Maintain precautions Gait/Functional Mobility Assessment/Intervention: Gait Assessment [place] Level: Gait: stand-by assist Assistive Device: Gait: rollator Ambulation Distance (Feet): 250 Gait Deviations Identified: decreased barron, decreased step length, decreased stride length Gait Skilled Rationale: verbal, upright posture, proximity of assistive device Stairs Assessment/Intervention: Stairs Assessment [place] Level: Stair Negotiation: contact guard assist Assistive Device: Stair Negotiation: (hands at countertop) Number of stairs: 6 (single stairs on curbstep) Stairs Skilled Rationale: verbal, tactile, demonstration, nonreciprocal pattern, general safety Outcome Score(s): CURRENT [facility] Basic Mobility Inpatient Short Form Turning [...] a railin - A Little Assistance CURRENT [facility] Mobility Raw Score: 19 CURRENT [facility] Mobility Functional Limitation/Modifier: 41.77% Currently Impaired [...] participating in rehab at their local facility: [facility]. Discharge education provided to the patient. Printed [...] education review and activity progression. Karen Urrutia, [phone]) IP Cardiopulmonary Rehab * Nava Jeronimo PA-C - 11/15/2022 1:41 PM EST Y DAILY PROGRESS NOTE HISTORY OF PRESENT ILLNESS: [...] halls with PT/OT OBJECTIVE LABS: Recent Labs 11/13/22195011/13/22 2111 11/15/22 0010 11/15/22 0638 11/15/22 1022 [...] this interval not displayed. Ptt/Pt/Inr: 36.9/15.5/1.2 (11/15 9) IMAGING: Radiological Studies over last 24 hours [...] Wires - Ventricular - on back up Sutures/Shasha/Wound vac -- Median sternotomy, LLE vein harvest [...] Jeronimo PA-C Cardiac Surgery [facility] Phone #: [phone] * Conrad Manriquez PA-C - 11/15/2022 1:01 [...] 11/15/2022 12:42 PM EST I, Dr. Derek aJra, have independently interviewed and examined Mr. Stephens [...] tomorrow/Sunday -- Derek Jara MD, PhD Office: [phone] Pager: [phone] * Gary Gimenez, PT - 11/15/2022 11:00 AM EST Acute Physical Therapy Treatment Prior to Admission [facility] score(s): PRIOR LEVEL AM-PAC Mobility Raw Score: [...] Finding/maintaining midline positioning Mobility Assessment/Intervention: Rolling/Turning Mobility [place] Level: Rolling/Turning: minimum assist (75% patient effort) Bed Features/Set-up: Rolling/Turning: Flat Skilled Rationale: Technique of activity, Maintain precautions Sit to Supine Mobility [place] Level: Sit->Supine: minimum assist (75% patient effort) Bed Features/Set-up: Sit->Supine: Flat Skilled Rationale: Hand placement, Verbal cues, Technique of activity, Maintain precautions Transfer Assessment/Intervention: Sit to Stand Transfer [place] Level: Sit->Stand: contact guard assist Assistive Device: Sit->Stand: gait belt, rollator Skilled Rationale: Hand placement, Verbal cues, Facilitate anterior shift, Technique of activity, Maintain precautions Skilled Intervention/Details: Sit->Stand: x3 Stand to Sit Transfer [place] Level: Stand->Sit: contact guard assist Assistive Device: Stand->Sit: gait belt, rollator Skilled Rationale: Controlled descent for sitting, Technique of activity Gait/Functional Mobility Assessment/Intervention: Gait Assessment [place] Level: Gait: contact guard assist Assistive Device: [...] Sa02 above 95%. Stairs Assessment/Intervention: Stairs Assessment [place] Level: Stair Negotiation: not tested Outcome Score(s): CURRENT [facility] Basic Mobility Inpatient Short Form Turning [...] a railin - A Little Assistance CURRENT [facility] Mobility Raw Score: 18 CURRENT [facility] Mobility Functional Limitation/Modifier: 46.58% Currently Impaired [...] WS - PCU OBJECTIVE LABS: Recent Labs 01/30/195011/13/22211011/14/2233711/14/2234411/14/22 0631 11/14/22 0718 11/14/22 0903 WBC 18.23* [...] Allergies MEDS: insulin regular IV infusion Stopped (11/14/22347) nitroGLYCERIN infusion 10 mcg/min (11/14/22 0800) Sodium [...] Derek Jara Chest Tubes - bilateral pleural mediastinal x2 Pacing Wires - Ventricular - on back up Sutures/[place]/Wound vac -- Median sternotomy, LLE vein harvest [...] MD, PhD Cardiac Surgery PGY-2 Phone #: [phone] * Josselyn Gamble OT - 11/14/2022 7:55 [...] Intact Mobility Assessment: Sit to Supine Mobility [place] Level: Sit->Supine: maximum assist (25% patient effort) Physical Assist: Sit->Supine: 2 person assist Bed Features/Set-up: Sit->Supine: Flat Skilled Rationale: Positioning, Sequencing, Verbal cues, Hand placement, Maintain precautions Transfer Assessment: Sit to Stand Transfer [place] Level: Sit->Stand: minimum assist (75% patient effort) Assistive Device: Sit->Stand: 4 wheeled walker Skilled Rationale: Hand placement, Verbal cues, Maintain precautions Stand to Sit Transfer [place] Level: Stand->Sit: minimum assist (75% patient effort) Assistive Device: Stand->Sit: 4 wheeled walker, armed chair Skilled Rationale: Positioning, Sequencing, Verbal cues, Hand placement, Maintain precautions Functional Mobility: Functional Mobility [place] Level: Functional Mobility/Gait: minimum assist (75% patient [...] pursed lip breathing techniques. Outcome Score(s): CURRENT -[facility] Daily Activity Inpatient Short Form Putting on/Taking Off Lower Body Clothin - Total Assistance Bathin - A Lot of Assistance Toiletin - A Lot of Assistance Putting on/Taking Off Upper Body Clothin - A Lot of Assistance Groomin - A Little Assistance Eatin - No Assistance CURRENT AM-[facility] Activity Raw Score: 14 CURRENT AM-[facility] Activity Functional Limitation/Modifier: 59.67% Currently Impaired in [...] current Occupational Therapy Discharge Summary. * Comfort Gnun, PT - 11/14/2022 7:55 AM EST Acute Physical Therapy Evaluation Prior to Admission AMPA score(s): PRIOR LEVEL AM-PAC Mobility Raw Score: [...] errors made Cognition Comments: Pt demonstrates good temporary receptionist and recall of sternal precautions Vision Screen [...] Intact Mobility Assessment: Sit to Supine Mobility [place] Level: Sit->Supine: maximum assist (25% patient effort) [...] positioning/posture Transfer Assessment: Sit to Stand Transfer [place] Level: Sit->Stand: minimum assist (75% patient effort) Skilled Rationale: Verbal cues, Hand placement, Maintain precautions, Facilitate anterior shift, Full extension to upright positioning/posture Skilled Intervention/Details: Sit->Stand: performed from chair x3reps throughout session Stand to Sit Transfer [place] Level: Stand->Sit: minimum assist (75% patient effort) Skilled Rationale: Positioning, Verbal cues, Hand placement, Maintain precautions, Controlled descent for sitting, Cues for increased safety Skilled Intervention/Details: Stand->Sit: performed to chiar x3 reps Gait/Functional Mobility: Gait Assessment [place] Level: Gait: contact guard assist Physical Assist: Gait: chair follow, 1 person + 1 person to manage equipment Assistive Device: Gait: rollator Ambulation Distance (Feet): 75 Gait Deviations Identified: decreased barron, decreased gait speed, decreased step length, festinating Gait Skilled Rationale: verbal, increase step length, upright posture, safety to avoid obstacles, proximity of assistive device Outcome Score(s): CURRENT [facility] Basic Mobility Inpatient Short Form Turning [...] railin - A Lot of Assistance CURRENT [facility] Mobility Raw Score: 17 CURRENT [facility] Mobility Functional Limitation/Modifier: 50.57% Currently Impaired in [...] today -- Derek Jara MD, PhD Office: [phone] Pager: [phone] * Alisa Mayers RCP - 11/13/2022 11:05 [...] PPI Prophylaxis: Nexium Lines / Access: PIVs RIJ Central Venous Catheter Arterial Line VALORIE Devine PA-C 11/13/2022, 7:44 PM Cardiac Surgery [facility] Phone #: [phone] * Derek Jara MD, PhD - 11/13/2022 [...] and NSTEMI. On heparin gtt Echo and LHC images reviewed Plan to OR today for CABG x 2 (LAD and OM as targets) All questions answered with him, his and family at the bedside. -- Derek Jara MD, PhD Office: [phone] Pager: [phone] * Andrew Lawson APRN-CHRISTOPHE - 11/12/2022 11:20 AM EST CARDIAC SURGERY DAILY PROGRESS NOTE HISTORY OF PRESENT ILLNESS: Laura Stephens is a 52 y.o. male with a past medical history of ETOH use and nicotine dependence. He presented to [facility] with symptoms of Chest pain radiating to his left shoulder and down left arm, shortness of breath, transient nausea, and fatigue associated with shoveling snow at work the morning of 11/08/2022. NSTEMI at OSH, normal echo, LHC with severe left main CAD for which patient was placed on a heparin infusion and transferred to [facility] for surgical evaluation and ongoing management. Currently asymptomatic. 24-hour interval history: No acute issues overnight Plan for 11/12/2022: - NPO at midnight. - continue heparin gtt until application administrator to OR - OR tomorrow - second [...] post op DAWOOD Redmond Cardiac Surgery [facility] Phone#[phone] * DAWOOD Redmond - 11/11/2022 12:15 PM EST CARDIAC SURGERY DAILY PROGRESS NOTE HISTORY OF PRESENT ILLNESS: Laura Stephens is a 52 y.o. male with a past medical history of ETOH use and nicotine dependence. He presented to [facility] with symptoms of Chest pain radiating to his left shoulder and down left arm, shortness of breath, transient nausea, and fatigue associated with shoveling snow at work the morning of 11/08/2022. NSTEMI at OSH, normal echo, LHC with severe left main CAD for which patient was placed on a heparin infusion and transferred to [facility] for surgical evaluation and ongoing management. Currently [...] post op DAWOOD Redmond Cardiac Surgery [facility] Phone#[phone] * DAWOOD Redmond - 11/10/2022 12:15 PM EST CARDIAC SURGERY DAILY PROGRESS NOTE HISTORY OF PRESENT ILLNESS: Laura Stephens is a 52 y.o. male with a past medical history of ETOH use and nicotine dependence. He presented to [facility] with symptoms of Chest pain radiating to his left shoulder and down left arm, shortness of breath, transient nausea, and fatigue associated with shoveling snow at work the morning of 11/08/2022. NSTEMI at OSH, normal echo, LHC with severe left main CAD for which patient was placed on a heparin infusion and transferred to [facility] for surgical evaluation and ongoing management. Currently [...] for situation ASSESSMENT & PLAN Surgical Plan: aLura Stephens is a 52 year old male [...] post op DAWOOD Redmond Cardiac Surgery [facility] Phone#[phone] * Wendie Frankel PA-C - 11/09/2022 3:43 PM EST CARDIAC SURGERY DAILY PROGRESS NOTE HISTORY OF PRESENT ILLNESS: Mr. Stephens is a 52 y.o. male with a past medical history of ETOH use and nicotine dependence. He presented to [facility] with symptoms of Chest pain radiating to his left shoulder anddown left arm, shortness of breath, transient nausea, and fatigue associated with shoveling snow atwork the morning of 11/08/2022. NSTEMI at OSH, normal echo, LHC with severe left main CAD for whichpatient was placed on a heparin infusion and transferred to [facility] for surgical evaluation and ongoing management. Currently [...] op Wendie Frankel PA-C Cardiac Surgery [facility] #[phone] * Marilin Bull RN - 11/09/2022 12:43 [...] Next of Kin: 1. Chyna Stephens spouse [phone] 2. na [employer] Insurance: yes Prescription [...] is home. Marilin Hill RN, BSN Clinical Mobile Tester [facility] History and physical note* Andrew Lawson APRN-CHRISTOPHE - 11/12/2022 11:25 AM EST PERIOPERATIVE SURGICAL [...] health risks and resources. Offered referral to [facility] Smoking Cessation clinic (AMB REFERRAL TO SMOKING [...] use and nicotine dependence. He presented to [facility] with symptoms of Chest pain radiating to his left shoulder anddown left arm, shortness of breath, transient nausea, and fatigue associated with shoveling snow atwork the morning of 11/08/2022. EMS was called and patient transported to ED for further evaluation. Patient states his symptoms improved during transport and reports no chest pain or other symptoms on arrival to [facility]. Patient uncertain but may have experienced similar [...] placed on aheparin infusion and transferred to [facility] for surgical evaluation and ongoing management. Nicotine [...] 325 mg, 325 mg, Oral, Q6H PRN, Forrest Ramirez, DAWOOD alum/mag hydrox.-simethicone oral suspension 30 mL, 30 mL, Oral, Q6H PRN, Forrest Ramirez, DAWOOD aspirin chewable tablet 81 mg, 81 mg, Oral, Daily, Forrest Ramirez, MIGNON-CHRISTOPHE Atorvastatin (LIPITOR) tablet 80 mg, 80 mg, Oral, Every dinner, Forrest Ramirez, DAWOOD Heparin 25,000 units in dextrose 5% 250 mL premix infusion, 0-30 Units/kg/hr (Dosing Weight), Intravenous, Continuous, Forrest Ramirez, DAWOOD Magnesium sulfate 4 g in sterile water 50 ml premix IVPB, 4 g, Intravenous, As directed PRN, Forrest Ramirez, MIGNON-CHRISTOPHE Metoprolol (LOPRESSOR) tablet 25 mg, 25 mg, Oral, Q12H, Forrest Ramirez, MIGNON-CHRISTOPHE nitroGLYCERIN (NITROSTAT) tablet SL 0.4 mg, 0.4 mg, Sublingual, Q5 MIN PRN, Forrest Ramirez, MIGNON-CHRISTOPHE Polyethylene glycol (MIRALAX) packet 17 g, 17 g, Oral, Daily, Forrest Ramirez, MIGNON-CHRISTOPHE Potassium Bicarb-Citric Acid (Effer-K) 20 MEQ effervescent tablets for oral solution 20 mEq, 20 mEq, Oral, As directed PRN, Forrest Ramirez, MIGNON-CHRISTOPHE Potassium Bicarb-Citric Acid (Effer-K) 20 MEQ effervescent tablets for oral solution 20-60 mEq, 20-60 mEq, Oral, As directed PRNForrest, MIGNON-CHRISTOPHE Potassium chloride (K-DUR) tablet ER 20 mEq, 20 mEq, Oral, As directed PRNForrest, MIGNON-CONCRETE ENGINEERING TECHNICIAN Potassium chloride (K-DUR) tablet ER 20-60 mEq, 20-60 mEq, Oral, As directed PRNForrest, MIGNON-CHRISTOPHE Senna (SENOKOT) tablet 8.6 mg, 8.6 mg, Oral, Q12H PRN OR Senna (SENOKOT) tablet 8.6 mg, 8.6 mg,Per NG tube, Q12H PRN, Forrest Ramirez, MIGNON-CHRISTOPHE Sodium chloride 0.9% IV solution 250 mL, 250 mL, Intravenous, PRN, Forrest Sachin Ramirez, 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 aspirin 81 mg Oral Daily Atorvastatin 80 [...] situation DIAGNOSTIC RESULTS/PROCEDURES CXR pending Echo per OSH C images from OSH to be uploaded for review PFTs ordered [...] 4.26 (H) 0.83 - 3.57 K/uL Abs Gregg Auto 0.86 0.24 - 0.93 K/uL Abs [...] year old male who presented to OSH 10/29/2022 with chest pain on exertion while shoveling snow. Diagnosed with NSTEMI and [facility] revealed CAD. Transferred to [facility] for ongoing management and CABG evaluation. Admitting [...] NPO for renal preservation in setting of [facility] today. HTN: (POA) Metoprolol 25mg q12h [...] Hgb at OSH 11/08 14.7g/dL Forrest Ramirez, 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 11/09/2022 documented in this [facility]01-25-[address] [facility] November 08, 2022 5:37pm Note Date/Time November 08, 2022 5 :37pm [facility] Medical Records Department [address] [place] [address] Discharge Summary 11/08/22 1730 MR#: [id number] Acct: [id number] Name: LAURA STEPHENS Rep #:[id number] : 1970 52 From: Marianne Estevez DO PCP: Dr. Denys Cuello MD Status:A DM MARYJANE Location: [place] [address]- Providers Date of Admission: 11/08/22 Date of [...] male who presented to the emergency departmentat [facility] after suffering chest pain while shoveling [...] Given his concerning story I contacted the juice weigher and we both felt that immediate catheterization [...] or diabetes. He was taken to the [facility]. In the [facility] he was found to have severe leftmain disease and would require transfer. An echocardiogram was obtained while waiting for transfer and his EF was found to be 55% with trivial mitral valve insufficiency, trivial tricuspid valve insufficiency, trivial aortic valve insufficiency and a right ventricular systolic pressure of [address] Infante did discuss the case with CT surgery at [facility] and he was transferred to [facility] to Dr. Jara service on 11/08/2019 3 [...] 43.8 L, Lymph % (Auto) 41.7 H, Gregg % (Auto) 11.0 H, Eos % (Auto) [...] Timmy Infante Charges/Coding Visit Charges OBSV E&M: 52298 Observ/hosp same date L3 11/08/22 1737 <Electronically signed by Marianne Estevez DO> Cosigner Signature (if applicable): CC: Dr. Denys Cuello MD; Dr. Marianne Estevez DO~ Signed [facility] Work Phone: 1(168) 564-814201-25-2023 History and physical note Author Dr. Estevez [facility] November 08, 2022 5:37pm Note Date/Time November 08, 2022 8 :34am [facility] Medical Records Department [address] [place] [address] H&P Exam - Hospitalist 11/08/22 0832 MR#: [id number] Acct: [id number] Name: LAURA STEPHENS Rep #:[id number] : 1970 52 From: Marianne Estevez DO PCP: Dr. Denys Cuello MD Status:A DM MARYJANE Location: [place] [address] HPI - General General Date of Admission: 11/08/22 Date of Service: 11/08/22 Chief Complaint: Chest pain HPI Narrative LAURA STEPHENS, is a 52 M who presented to the emergency department [facility] after he suffered chest pain while [...] of ST depression in the lateral leads. 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 Marianne Herb, DO) Grandmother Breast cancer Father Prostate cancer [...] 43.8 L, Lymph % (Auto) 41.7 H, Gregg % (Auto) 11.0 H, Eos % (Auto) [...] -Full code Charges/Coding Visit Charges Inpatient E&M: 25368 Init Hosp L2 11/08/22 1247 <Electronically signed by Marianne Estevez DO> Cosigner Signature (if applicable): CC: Dr. Denys Cuello MD; Dr. Marianne Estevez DO~ Signed ADDENDUM by Dr. Marianne Estevez DO on 11/08/22 at 1737 Visit Charges OBSV E&M: 83712 Observ/hosp same date L3 11/08/22 1737<Electronically signed by Marianne Estevez DO> Cosigner Signature (if applicable): cc: Dr. Deyns Cuello MD; Dr. Marianne Estevez DO ~* Signed [facility] Work Phone: 1(243) 412-390601-25-[address] Win [facility] November 08, 2022 4:10pm Note Date/Time November 08, 2022 7 :46am [facility] Medical Records Department [address] [place] [address] Emergency Department Summary 11/08/22 MR#: [id number] Acct: [id number] Name: LAURA STEPHENS Rep #:[id number] : 1970 52 From: Emelia Win MD PCP: Dr. Denys Cuello MD Status:A DM MARYJANE Location: [place] [address] HPI History of Present Illness Chief Complaint: Chest [...] coronary disease and of a pulmonary embolism. [facility] Medical History (Updated 11/08/22 @ 08:12 by [...] 43.8 L Lymph % (Auto) 41.7 H Gregg % (Auto) 11.0 H Eos % (Auto) [...] Provider] - Disposition Disposition: Acute Care Hospital [facility] What to do if you have Problems For any increased pain, shortness of breath, bleeding, nausea or vomiting, chestpain, or any unexpected problems, contact your Primary Care Provider. Call [facility] ([phone]) or report to the closest Emergency Room. Call 911 if necessary. 11/08/22 1610 <Electronically signed by Emelia Win MD> Cosigner Signature (if applicable): CC: Dr. Denys Cuello MD ~ Signed [facility] Work Phone: 1(727) 306-903901-25-[address] Infante [facility] November 08, 2022 11:45am Note Date/Time November 08, 2022 1 1:36am [facility] Medical Records Department [address] [place] [address] Consultation - Cardiology 11/08/22 1128 MR#: [id number] Acct: [id number] Name: LAURA STEPHENS Rep #:[id number] : 1970 52 From: Timmy Infante MD PCP: Dr. Denys Cuello MD Status:A DM MARYJANE Location: [place] [address]- Assessment & Plan Assessment/Plan (1) Angina pectoris: [...] be compatible with a non-ST segment elevation VT. Based upon the patient's presentation this would [...] his spouse, and Dr. Estevez of the [facility] staff. Comment: Time spent in the patient's overall evaluation, examination, review of medical records, review of radiologic studies, documentation, and discussion with family and the [facility] medical staff: 60 minutes. HPI Consult Data Date of Consult: 11/08/22 HPI Narrative HPI Narrative: LAURA STEPHENS, is a 52 year old white male who presents for cardiovascular consultation based upon concerns of symptoms concerning for exertional angina pectoris, subsequent abnormal troponin I level concerning for an acute coronary syndrome/non-ST segment elevation VT, and hypertension superimposed upon a report of [...] comfortably. He is remained in sinus rhythm. [facility] Medical History (Updated 11/08/22 @ 11:42 by [...] 43.8 L, Lymph % (Auto) 41.7 H, Gregg % (Auto) 11.0 H, Eos % (Auto) [...] 43.8 L, Lymph % (Auto) 41.7 H, Gregg % (Auto) 11.0 H, Eos % (Auto) [...] Cuello MD; Dr. Timmy Infante MD~ Signed [facility] Work Phone: 1(301) 914-711701-01-2023 Evaluation note* Diagnosis Onset Date Resolution Status Atherosclerotic heart diseas [place] of [place] coronary artery without angina pectoris acute History [...] bypass surgery October, 3 acute Essential hypertension [facility] Work Phone: 1(451) 969-163201-01-2023 Evaluation note* Diagnosis Onset Date Resolution Status Chest pain acute Fatigue acute History of coronary artery bypass surgery October, 3 acute Essential hypertension [facility] Work Phone: 1(655) 991-388601-01-2023 Evaluation note* Diagnosis Onset Date Resolution Status Chest pain acute Fatigue acute History of coronary artery bypass surgery October, 3 acute Essential hypertension [facility] Depressive disorder acute Anxiety and depression acute [facility] Work Phone: [phone]) 592-470701-01-2023 Evaluation note* Diagnosis Onset Date Resolution Status Anxiety and depression acute Depressive disorder acute Chest pain acute History of coronary artery bypass surgery October, 3 acute Essential hypertension [facility] Work Phone: Evaluation note* Diagnosis Onset Date Resolution Status Chest pain acute Hyperglycemia acute [facility] Work Phone: Evaluation note* Diagnosis Onset Date Resolution Status Angina pectoris acute Chest pain acute Hyperglycemia acute Non-ST elevation (NSTEMI) myocardial infarction acute HTN (hypertension) [facility] Work Phone: Evaluation note* Diagnosis Coronary artery disease of [place] artery of [place] heart with stable angina pectoris- Primary Acute post-operative pain S/P CABG (coronary artery bypass graft) Postsurgical aortocoronary bypass status CAD (coronary artery disease) Coronary atherosclerosis of unspecified type of vessel, [place] or graft [facility] Diagnosis Onset Date Resolution Status Angina pectoris acute Chest pain acute Hyperglycemia acute Non-ST elevation (NSTEMI) myocardial infarction acute Atherosclerotic heart diseas e [place] coronary artery without angina pectoris acute Essential hypertension acute History of coronary artery bypass surgery October, 3 acute Tobacco abuse acute Essential hypertension acute History of coronary artery bypass surgery October, 3 acute Palpitations acute [facility] Work Phone: Evaluation note* Diagnosis Status post cardiac surgery [facility] Diagnosis Onset Date Resolution Status Angina pectoris acute Chest pain acute Hyperglycemia acute Non-ST elevation (NSTEMI) myocardial infarction acute Atherosclerotic heart diseas e of [place] coronary artery without angina pectoris acute History [...] Essential hypertension chron ic GI bleed chronic [facility] Work Phone: Evaluation note* Diagnosis Acute right ankle pain- Primary [facility] Diagnosis Foot pain, left- Primary Pain in limb Foot pain, left Pain in limb [facility]* Diagnosis Foot pain, left Pain in limb [facility]* Diagnosis Elbow swelling, left- Primary [facility] Author Dr. Brunner [facility] March 30, 2023 7:42am Note Date/Time March 30, 2023 7:42 am [facility] Medical Records Department [address] [place] [address] History & Physical Exam 03/30/23 0742 MR#: [id number] Acct: [id number] Name: LAURA STEPHENS Rep #:[id number] : 1970 52 From: Mesfin gonzalez MD PCP: Dr. Denys Cuello MD Status:R [facility] Location: [place] [id number] History and Physical Date of Admission: 03/30/23 Intake Vital Signs ? 02/20/2308:19 Height 6 ft Weight: 197 lb 8 oz BMI 26.7 BP 120/85 H Blood Pressure Location Lt radial Position Sitting Respiration 18 Pulse 75 Pulse Source Monitor Temp 97.4 F L Temp Source Temporal Pulse Oximetry (%) 96 Oxygen Delivery Method room air Intake Visit Reasons:?GASTROINTESTINAL HEMORRHAGE Chief Complaint: consult Wet Machine Operator Required: No Is patient in pain?: No [...] History? Alcohol abuse Atherosclerotic heart disease of [place] coronary artery without angina pectoris Bilateral shoulder [...] this with him.? I will ask his juice weigher if he can stop his Plavix for [...] proceed with procedure. Mesfin Brunner MD Pager: [facility] [address] [place] [address], [address] [place] [phone] Office: I have examined the patient and the H&P has been reviewed. There are no clinicalchanges since date of exam. 03/30/23 0742 <Electronically signed by Mesfin Brunner MD> Cosigner Signature (if applicable): CC: Dr. Mesfin Brunner MD; Dr. Denys Cuello MD~ Signed [facility] Work Phone: Hospital Discharge instructionsAmbulatory Orders* Phase II, Outpatient Cardiac Rehab Location: None Selected [facility] Work Phone: Reason for referral (narrative)* Consultation (Routine) - Schedule Outgoing - Transfer of Care Specialty Diagnoses / Procedures Referred By Contac t Referred To Contact Diagnoses Coronary artery disease of [place] artery [place] heart with stable angina pectoris Derek Jara MD, PhD [address] [place] [phone] [facility]- Pulmonary & Cardiac Rehab, Other [address] [place] [address] Referral ID Status Reason Start Date Expiration Date V isits Requested Visits Authorized [id number] Schedule Outgoing - Transfer of Care 11/13/2022 12/08/2023 1 1 Scheduling Instructions Clinic to contact patient for scheduling at most appropriate location. * Radiology (Emergency) - New Request Specialty Diagnoses / Procedures Referred By Contac t Referred To Contact Procedures ECG Derek Jara MD, PhD [address] [place] [address] Referral ID Status Reason Start Date Expiration Date V isits Requested Visits Authorized [id number] New Request 11/13/2022 12/08/2023 1 1 * (Routine) Specialty Diagnoses / Procedures Referred By Contac t Referred To Contact Pallavi Mccabe DO [address] [place] [phone] Referral ID Status Reason Start Date Expiration Date Visits Re quested Visits Authorized * (Routine) - New Request Specialty Diagnoses / Procedures Referred By Contac t Referred To Contact Procedures PLATELET MONITORING PER PROTOCOL Ashley, Forrest Denise APRN-CONCRETE ENGINEERING TECHNICIAN [address] [address] Referral ID Status Reason Start Date Expiration Date V isits Requested Visits Authorized [id number] New Request 11/09/2022 12/04/2023 1 1 Electronically signed by Forrest Ramirez 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 at 11/09/2022 12:18 AM EST * (Routine) - New Request Specialty Diagnoses / Procedures Referred By Contac t Referred To Contact Procedures NO PHARMACOLOGICAL DVT PROPHYLAXIS List, Forrest Denise APRN-CONCRETE ENGINEERING TECHNICIAN [address] [address] Referral ID Status Reason Start Date Expiration Date V isits Requested Visits Authorized [id number] New Request 11/09/2022 12/04/2023 1 1 Electronically signed by Forrest Ramirez 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 at 11/09/2022 12:14 AM EST * (Routine) - New Request Specialty Diagnoses / Procedures Referred By Contac t Referred To Contact Procedures DVT/VTE RISK ASSESSMENT Forrest Ramirez 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 [address] [facility] [place] [address] Referral ID Status Reason Start Date Expiration Date V isits Requested Visits Authorized [id number] New Request 11/09/2022 12/04/2023 1 1 Electronically signed by Forrest Ramirez 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 at 11/09/2022 12:14 AM EST [facility] for referral (narrative)* Diagnostic Procedure Only (Urgent) - Closed Specialty Diagnoses / Procedures Referred By Contac t Referred To Contact XR IMAGING Diagnoses Acute right ankle pain Procedures XR ANKLE GENERAL 3V AP/LAT/OBL RIGHT RADEX ANKLE COMPLETE MINIMUM 3 VIEWS Patel Marcus APRN.CONCRETE ENGINEERING TECHNICIAN [address] [place] [address] Xr Imaging Referral ID Status Reason Start Date Expiration Date V isits Requested Visits Authorized [id number] Closed Auto-Generate d Referral 05/01/2023 05/30/2024 1 1 [facility] for referral (narrative)* Diagnostic Procedure Only (Urgent) - Closed Specialty Diagnoses / Procedures Referred By Contac t Referred To Contact XR IMAGING Diagnoses Foot pain, left Procedures XR FOOT GENERAL 3V AP/LAT/OBL LEFT RADEX FOOT COMPLETE MINIMUM 3 VIEWS Penny Soto PHYSICS FACULTY MEMBER.CONCRETE ENGINEERING TECHNICIAN [address] [place] [address] [place] [address] Referral ID Status Reason Start Date Expiration Date V isits Requested Visits Authorized [id number] Closed Auto-Generate d Referral 07/15/2024 08/14/2025 1 1 [facility] for referral (narrative)* Diagnostic Procedure Only (Urgent) - Closed Specialty Diagnoses / Procedures Referred By Contac t Referred To Contact XR IMAGING Diagnoses Foot pain, left Procedures XR FOOT GENERAL 3V AP/LAT/OBL LEFT RADEX FOOT COMPLETE MINIMUM 3 VIEWS Penny Soto APRN.CONCRETE ENGINEERING TECHNICIAN [address] [place] [address] [place] [address] Referral ID Status Reason Start Date Expiration Date V isits Requested Visits Authorized [id number] Closed Auto-Generate d Referral 07/15/2024 08/14/2025 1 1 [facility] for referral (narrative)No reason for referral information availableWCincinnati [facility] Work Phone: Reason for visit Narrative* Auth/Cert Specialty Diagnoses / Procedures Referred By Contac t Referred To Contact Diagnoses Chest pain, CAD Derek Jara MD, PhD [address] [place] [phone] [facility] [address] [place] [address] Referral ID Status Reason Start Date Expiration Date Visits Re quested Visits Authorized [id number] 1 1 [facility] Diagnostic Procedure Only (Urgent) - Closed Specialty Diagnoses / Procedures Referred By Contac t Referred To Contact XR IMAGING Diagnoses Acute right ankle pain Procedures XR ANKLE GENERAL 3V AP/LAT/OBL RIGHT RADEX ANKLE COMPLETE MINIMUM 3 VIEWS Patel Marcus APRN.CONCRETE ENGINEERING TECHNICIAN [address] [place] [address] [place] [address] Referral ID Status Reason Start Date Expiration Date V isits Requested Visits Authorized [id number] Closed Auto-Generate d Referral 05/01/2023 05/30/2024 1 1 [facility] for visit Narrative* Diagnostic Procedure Only (Urgent) - Closed Specialty Diagnoses / Procedures Referred By Contac t Referred To Contact XR IMAGING Diagnoses Foot pain, left Procedures XR FOOT GENERAL 3V AP/LAT/OBL LEFT RADEX FOOT COMPLETE MINIMUM 3 VIEWS Penny Soto APRN.CONCRETE ENGINEERING TECHNICIAN [address] [place] [address] [place] [address] Referral ID Status Reason Start Date Expiration Date V isits Requested Visits Authorized [id number] Closed Auto-Generate d Referral 07/15/2024 08/14/2025 1 1 [facility] Chief Complaint and Reason for Visit Chief Complaint CHEST PAIN Reason for Visit Chest pain Hyperglycemia Chief Complaint CHEST PAIN CHEST PAIN CHEST PAIN Reason for Visit Angina pectoris Chest pain Hyperglycemia Non-ST elevation (NSTEMI) myocardial infarction HTN (hypertension) Chief Complaint CHEST PAIN CHEST PAIN CHEST PAIN Amb Documentation [facility] FU S/P CABG [facility] (documents w PFM) Reason for Visit Angina pectoris Chest pain Hyperglycemia Non-ST elevation (NSTEMI) myocardial infarction Atherosclerotic heart disease of [place] coronary artery without angina pectoris Essential hypertension History of coronary artery bypass surgery Tobacco abuse Essential hypertension History of coronary artery bypass surgery Palpitations Chief Complaint CHEST PAIN CHEST PAIN CHEST PAIN Amb Documentation [facility] FU S/P CABG [facility] (documents w PFM) PALP Reason for Visit Angina pectoris Chest pain Hyperglycemia Non-ST elevation (NSTEMI) myocardial infarction Atherosclerotic heart disease of [place] coronary artery without angina pectoris Essential hypertension History of coronary artery bypass surgery Tobacco abuse Essential hypertension History of coronary artery bypass surgery Palpitations Chief Complaint CHEST PAIN CHEST PAIN CHEST PAIN Amb Documentation [facility] FU S/P CABG [facility] (documents w PFM) PALP 2 M FU Reason for Visit Angina pectoris Chest pain Hyperglycemia Non-ST elevation (NSTEMI) myocardial infarction Atherosclerotic heart disease of [place] coronary artery without angina pectoris History of coronary artery bypass surgery Tobacco abuse Essential hypertension History of coronary artery bypass surgery Palpitations Essential hypertension Bilateral shoulder pain History of coronary artery bypass surgery Borderline type 2 diabetes mellitus BPH (benign prostatic hyperplasia) Essential hypertension GI bleed Chief Complaint [facility] FU S/P CABG [facility] (documents w PFM) PALP 2 M FU GASTROINTESTINAL HEMORRHAGE LT PINK EYE & SINUS ISSUES 3 M FU Reason for Visit Atherosclerotic hear t disease of [place] coronary artery without angina pectoris History of [...] 11:1 8am Atherosclerotic heart diseas e of [place] coronary artery without angina pectoris May 14, 2025 10:13am High cholesterol May 14, 2025 10:1 3am Preop cardiovascular exam May 14 10:13am Chief Complaint Admit Date RIGHT HIP February 06, 2025 7:5 7am RM 2 February 06, 2025 8:1 1am EORDER February 06, 2025 8:4 2am EORDERS- LEFT FOOT March 16, 2025 4:33p m RIGHT HIP 2025 11:1 8am RM 4 2025 11:3 1am templating for right JENNIE May 13, 2025 6:44pm 6 M FU May 14, 2025 10:1 3am E-ORDER 2 ORDERING GOYO May 14, 2025 11:09am ERAS, Right Total Hip Replacement Roboti c Arm Assi May 19, 2025 6:15am ERAS, Right Total Hip Replacement Roboti c Arm Assi May 19, 2025 7:06am Reason for Visit Admit Date AVN of femur February 06, 2025 7:5 7am Gout February 06, 2025 7:5 7am Hip pain February 06, 2025 7:5 7am Tobacco abuse February 06, 2025 7:5 7am AVN of femur 2025 11:1 8am Atherosclerotic heart diseas e of [place] coronary artery without angina pectoris May 14, 2025 10:13am Preop cardiovascular exam May 14 10:13am High cholesterol May 14, 2025 10:1 3am Chief Complaint Admit Date RIGHT HIP February 06, 2025 7:5 7am RM 2 February 06, 2025 8:1 1am EORDER February 06, 2025 8:4 2am EORDERS- LEFT FOOT March 16, 2025 4:33p m RIGHT HIP 2025 11:1 8am RM 4 2025 11:3 1am templating for right JENNIE May 13, 2025 6:44pm 6 M FU May 14, 2025 10:1 3am E-ORDER 2 ORDERING GOYO May 14, 2025 11:09am ERAS, Right Total Hip Replacement Roboti c Arm Assi May 19, 2025 6:15am ERAS, Right Total Hip Replacement Roboti c Arm Assi May 19, 2025 7:06am RT TOTAL HIP/DR TO FAX May 22, 2025 10:50am Chief Complaint Admit Date RIGHT HIP February 06, 2025 7:5 7am RM 2 February 06, 2025 8:1 1am EORDER February 06, 2025 8:4 2am EORDERS- LEFT FOOT March 16, 2025 4:33p m RIGHT HIP 2025 11:1 8am RM 4 2025 11:3 1am PREOP May 12, 2025 12:0 0pm templating for right JENNIE May 13, 2025 6:44pm 6 M FU May 14, 2025 10:1 3am E-ORDER [address]'Isabel May 14, 2025 11:09am ERAS, Right Total Hip Replacement Roboti c Arm Assi May 19, 2025 6:15am ERAS, Right Total Hip Replacement Roboti c Arm Assi May 19, 2025 7:06am RT TOTAL HIP/DR TO FAX May 22, 2025 10:50am right hip June 01, 2025 1: 04pm Reason for Visit Admit Date AVN of femur February 06, 2025 7:5 7am Gout February 06, 2025 7:5 7am Hip pain February 06, 2025 7:5 7am Tobacco abuse February 06, 2025 7:5 7am AVN of femur 2025 11:1 8am Atherosclerotic heart diseas e of [place] coronary artery without angina pectoris May 14, 2025 10:13am Preop cardiovascular exam May 14 10:13am High cholesterol May 14, 2025 10:1 3am AVN of femur June 01, 2025 1: 04pm Other acute postprocedural pain May [id number] 1:04pm Status post right hip replacement June 01, 2025 1:04pm Chief Complaint Admit Date EORDERS- LEFT FOOT March 16, 2025 4:33p m RIGHT HIP 2025 11:1 8am RM 4 2025 11:3 1am PREOP May 12, 2025 12:0 0pm templating for right JENNIE May 13, 2025 6:44pm 6 M FU May 14, 2025 10:1 3am E-ORDER [address]'Isabel May 14, 2025 11:09am ERAS, Right Total Hip Replacement Roboti c Arm Assi May 19, 2025 6:15am ERAS, Right Total Hip Replacement Roboti c Arm Assi May 19, 2025 7:06am right hip June 01, 2025 1: 04pm RT TOTAL HIP/DR TO FAX June 17 6:00pm right hip June 29, 2025 12:45pm RM 2 June 29, 2025 1:05pm Reason for Visit Admit Date AVN of femur 2025 11:1 8am Atherosclerotic heart diseas e of [place] coronary artery without angina pectoris May 14, 2025 10:13am Preop cardiovascular exam May 14 10:13am High cholesterol May 14, 2025 10:1 3am AVN of femur June 01, 2025 1: 04pm Other acute postprocedural pain May [id number] 1:04pm Status post right hip replacement June 01, 2025 1:04pm Status post right hip replacement Sept2024 12:45pm Family History No Family History Records Found [...] Will No November 08 7:38am Power of Hair Spinner No November 08, 2022 7:38am Advance Directive Response Recorded Date/ Time Living Will No November 08 10:53am Power of Hair Spinner No November 08, 2022 10:53am Latest Code [...] Will No November 08 11:53am Power of Hair Spinner No November 08, 2022 11:53am Advance Directive Response Recorded Date/ Time Living Will No March 29, 2023 8:27am Power of Hair Spinner No March 29 8:27am Advance Directive Response Recorded Date/ Time Living Will No March 29, 2023 7:27am Power of Hair Spinner No March 29 7:27am Advance Directive Response Recorded Date/ Time Living Will No September 29 6:02pm Do you have a Healthcare Power of Hair Spinner? No September 29, 2024 6:02pm Advance Directive Response Recorded Date/ Time Do you have a Healthcare Power of Hair Spinner? No May 05, 2025 2:01pm Summary Purpose Additional Source Comments Care Teams [...] Provider, Refer ring Provider Active Charla Dunn HEATING TECHNICIAN, HEATING TECHNICIAN-C Attending Provider Active Team Status: Active Member [...] Care Provider, Refer ring Provider Active Leeroy EUGENE, [place] Attending Provider Active Team Status: Active Member Role Status Dates Dr. Denys Cuello MD Primary Care Provider, Refer ring Provider Active Dr. Mesfin Brunner MD Attending Provider, Other Provider Active Team Status: Inactive Member Role Status Dates Dr. Denys Cuello MD Primary Care Provider Active Charla Dunn HEATING TECHNICIAN, HEATING TECHNICIAN-C Attending Provider Active Team Status: Inactive Member [...] Dr. Timmy Infante MD Other Provider Active Assistant Plant Control Operator Relationship Specialty Start Date End Date Denys Cuello MD [address] [phone] PCP - General Internal Medicine [...] Provider Active Becky Arreola Attending Provider Active Assistant Plant Control Operator Relationship Specialty Start Date End Date Denys Cuello MD [address] [phone] PCP - General Internal Medicine 11/09/22 Team Status: Inactive Member Role Status Dates Dr. Denys Cuello MD Primary Care Provider Active Charla Dunn HEATING TECHNICIAN, HEATING TECHNICIAN-C Attending Provider, Referring P mingo Active Team Status: Inactive Member Role Status Dates Dr. Denys Cuelol MD Primary Care Provider, Refer ring Provider Active Selwyn EUGENE, [place] Attending Provider Active Team Status: Active Member Role Status Dates Dr. Denys Cuello MD Primary Care Provider Active Charla Dunn HEATING TECHNICIAN, HEATING TECHNICIAN-C Referring Provider, Other Provi iam Active Dr. Vleasquez Diop MD Attending Provider Active Team Status: Active Member Role Status Dates Dr. Denys Cuello MD Primary Care Provider Active Charla Dunn HEATING TECHNICIAN, HEATING TECHNICIAN-C Attending Provider Active Assistant Plant Control Operator Relationship Specialty Start Date End Date Denys Cuello MD [address] [address] PCP - General Internal Medicine 07/15/24 Assistant Plant Control Operator Relationship Specialty Start Date End Date Denys Cuello MD [address] [address] PCP - General Internal Medicine 07/15/24 Assistant Plant Control Operator Relationship Specialty Start Date End Date Denys Cuello MD [address] [place] [address] PCP - General Internal Medicine 07/15/24 Team Status: Active Member Role Status Dates Svitlana Becerril MD Primary Care Provider Active Team Status: Inactive Member Role Status Dates Dr. Denys Cuello MD Primary Care Provider Active Start: September 29, 2024 End: September 29, 2024 Dr. Gianni Hernandez , Attending Provider Activ e Start: September 29, [...] 2025 End: May 14, 2025 Andre Galeas HEATING TECHNICIAN, HEATING TECHNICIAN-C Attending Provider Active S tart: May 14, 2025 End: May 14, 2025 Team Status: Active Member Role/Relationship Status Anum Becerril MD Primary Care Provider Active St art: May 14, 2025 Svitlana Becerril MD Other Provider Active Start: Britni ly 2024 Andre Galeas HEATING TECHNICIAN, HEATING TECHNICIAN-C Attending Provider Active S tart: May 14, 2025 Andre Galeas HEATING TECHNICIAN, HEATING TECHNICIAN-C Referring Provider Active S tart: May 14, 2025 Team Status: Inactive Member Role/Relationship Status Anum Becerril MD Primary Care Provider Active St art: May 19, 2025 End: May 19, 2025 Dr. Neville Mccall DO Attending Provider Active Start: May 19, 2025 End: May 19, 2025 Dr. Neville Mccall DO Referring Provider Active Start: May 19, 2025 End: May 19, 2025 Team Status: Active Member Role/Relationship Status Anum Becerril MD Primary Care Provider Active St art: May 19, 2025 Dr. Neville Mccall DO Attending Provider Active Start: May 19, 2025 Dr. Neville Mccall DO Referring Provider Active Start: May 19, 2025 Dr. Neville Mccall DO Other Provider Active St art: May 19, 2025 Team Status: Inactive Member Role/Relationship Status Anum Becerril MD Primary Care Provider Active St art: May 13, 2025 End: May 13, 2025 Dr. Neville Mccall DO Attending Provider Active Start: May 13, 2025 End: May 13, 2025 Dr. Neville Mcclal DO Referring Provider Active Start: May 13, 2025 End: May 13, 2025 Team Status: Inactive Member Role/Relationship Status Anum Becerril MD Primary Care Provider Active St art: May 14, 2025 End: May 14, 2025 Svitlana Becerril MD Other Provider Active Start: Britni ly 2024 End: May 14, 2025 Andre Galeas HEATING TECHNICIAN, HEATING TECHNICIAN-C Attending Provider Active S tart: May 14, 2025 End: May 14, 2025 Andre Galeas HEATING TECHNICIAN, HEATING TECHNICIAN-C Referring Provider Active S tart: May 14, 2025 End: May 14, 2025 Team Status: Active Member Role/Relationship Status Anum Becerril MD Primary Care Provider Active St art: May 22, 2025 Dr. Neville Mccall DO Attending Provider Active Start: May 22, 2025 Dr. Neville Mccall DO Referring Provider Active Start: May 22, 2025 Team Status: Active Member Role/Relationship Status Anum Becerril MD Primary Care Provider Active St art: May 12, 2025 End: May 12, 2025 Dr. Velasquez Diop MD Attending Provider Active S tart: May 12, 2025 End: May 12, 2025 Dr. Neville Mccall DO Referring Provider Active Start: May 12, 2025 End: May 12, 2025 Team Status: Inactive Member Role/Relationship Status Anum Becerril MD Primary Care Provider Active St art: May 13, 2025 End: May 13, 2025 Dr. Neville Mccall DO Attending Provider Active Start: May 13, 2025 End: May 13, 2025 Dr. Neville Mccall DO Referring Provider Active Start: May 13, 2025 End: May 13, 2025 Team Status: Inactive Member Role/Relationship Status Anum Becerril MD Primary Care Provider Active St art: May 14, 2025 End: May 14, 2025 Svitlana Becerril MD Referring Provider Active Start : May 14, 2025 End: May 14, 2025 Andre Galeas HEATING TECHNICIAN, HEATING TECHNICIAN-C Attending Provider Active S tart: May 14, 2025 End: May 14, 2025 Team Status: Inactive Member Role/Relationship Status Anum Becerril MD Primary Care Provider Active St art: May 14, 2025 End: May 14, 2025 Svitlana Becerril MD Other Provider Active Start: 2024 End: May 14, 2025 Andre Galeas HEATING TECHNICIAN, HEATING TECHNICIAN-C Attending Provider Active S tart: May 14, 2025 End: May 14, 2025 Andre Galeas HEATING TECHNICIAN, HEATING TECHNICIAN-C Referring Provider Active S tart: May 14, 2025 End: May 14, 2025 Team Status: Inactive Member Role/Relationship Status Anum Becerril MD Primary Care Provider Active St art: May 19, 2025 End: May 19, 2025 Dr. Neville Mccall DO Attending Provider Active Start: May 19, 2025 End: May 19, 2025 Dr. Neville Mccall DO Referring Provider Active Start: May 19, 2025 End: May 19, 2025 Team Status: Active Member Role/Relationship Status Anum Becerril MD Primary Care Provider Active St art: May 19, 2025 Dr. Neville Mccall DO Attending Provider Active Start: May 19, 2025 Dr. Neville Mccall DO Referring Provider Active Start: May 19, 2025 Dr. Neville Mccall DO Other Provider Active St art: May 19, 2025 Team Status: Active Member Role/Relationship Status Anum Becerril MD Primary Care Provider Active St art: May 22, 2025 Dr. Neville Mccall DO Attending Provider Active Start: May 22, 2025 Dr. Neville Mccall DO Referring Provider Active Start: May 22, 2025 Team Status: Inactive Member Role/Relationship Status Anum Becerril MD Primary Care Provider Active St art: June 01, 2025 End: June 01, 2025 Svitlana Becerril MD Referring Provider Active Start : June 01, 2025 End: June 01, 2025 ISABELLE Ramos Attending Provider Active Start: June 01, 2025 End: June 01, 2025 Team Status: Inactive Member Role/Relationship Status [...] Primary Care Provider Active St art: May 12, 2025 End: May 12, 2025 Dr. Velasquez Diop MD Attending Provider Active S tart: May 12, 2025 End: May 12, 2025 Dr. Neville Mccall DO Referring Provider Active Start: May 12, 2025 End: May 12, 2025 Team Status: Inactive Member Role/Relationship Status Anum Becerril MD Primary Care Provider Active St art: May 13, 2025 End: May 13, 2025 Dr. Neville Mccall DO Attending Provider Active Start: May 13, 2025 End: May 13, 2025 Dr. Neville Mccall DO Referring Provider Active Start: May 13, 2025 End: May 13, 2025 Team Status: Inactive Member Role/Relationship Status Anum Becerril MD Primary Care Provider Active St art: May 14, 2025 End: May 14, 2025 Svitlana Becerril MD Referring Provider Active Start : May 14, 2025 End: May 14, 2025 Andre Galeas HEATING TECHNICIAN, HEATING TECHNICIAN-C Attending Provider Active S tart: May 14, 2025 End: May 14, 2025 Team Status: Inactive Member Role/Relationship Status Anum Becerril MD Primary Care Provider Active St art: May 14, 2025 End: May 14, 2025 Svitlana Becerril MD Other Provider Active Start: 2024 End: May 14, 2025 Andre Galeas HEATING TECHNICIAN, HEATING TECHNICIAN-C Attending Provider Active S tart: May 14, 2025 End: May 14, 2025 Andre Galeas HEATING TECHNICIAN, HEATING TECHNICIAN-C Referring Provider Active S tart: May 14, 2025 End: May 14, 2025 Team Status: Inactive Member Role/Relationship Status Anum Becerril MD Primary Care Provider Active St art: May 19, 2025 End: May 19, 2025 Dr. Neville Mccall DO Attending Provider Active Start: May 19, 2025 End: May 19, 2025 Dr. Neville Mccall DO Referring Provider Active Start: May 19, 2025 End: May 19, 2025 Team Status: Active Member Role/Relationship Status Anum Becerril MD Primary Care Provider Active St art: May 19, 2025 Dr. Neville Mccall DO Attending Provider Active Start: May 19, 2025 Dr. Neville Mccall DO Referring Provider Active Start: May 19, 2025 Dr. Neville Mccall DO Other Provider Active St art: May 19, 2025 Team Status: Inactive Member Role/Relationship Status Anum Becerril MD Primary Care Provider Active St art: June 01, 2025 End: June 01, 2025 Svitlana Becerril MD Referring Provider Active Start : June 01, 2025 End: June 01, 2025 ISABELLE Ramos Attending Provider Active Start: June 01, 2025 End: June 01, 2025 Team Status: Active Member Role/Relationship Status Anum Becerril MD Primary Care Provider Active St art: June 17, 2025 Dr. Neville Mccall DO Attending Provider Active Start: June 17, 2025 Dr. Neville Mccall DO Referring Provider Active Start: June 17, 2025 Team Status: Active Member Role/Relationship Status Anum Becerril MD Primary Care Provider Active St art: June 29, 2025 Svitlana Becerril MD Referring Provider Active Start : June 29, 2025 Dr. Neville Mccall DO Attending Provider Active Start: June 29, 2025 Team Status: Inactive Member Role/Relationship Status Anum Becerril MD Primary Care Provider Active St art: June 29, 2025 End: June 29, 2025 Dr. Velasquez Diop MD Attending Provider Active S tart: June 29, 2025 End: June 29, 2025 Team Status: Inactive Member Role/Relationship Status Anum Becerril MD Primary Care Provider Active St art: June 29, 2025 End: June 29, 2025 Svitlana Becerril MD Referring Provider Active Start : June 29, 2025 End: June 29, 2025 Dr. Neville Mccall DO Attending Provider Active Start: June 29, 2025 End: June 29, 2025 Goals (unrecognized section and content) Goals [...] Provider: Jen Carlson RN)1355 (Given - Provider: eJn Carlson, CHRISTOFER)1808 (Given - Provider: Jen Carlson, CHRISTOFER)2003 (Given - Provider: Rafaela Ramirez RN) AMIOdarone (PACERONE) tablet 200 mg 200 mg, Oral, DAILY, 8 doses, First dose on Sun11/15/22 at 0900, Last dose on Sun11/22/22 at 0900, 0851 (Given - Provider: Jen Carlson RN) 0850 (Given - Provider: Jen Carlson, CHRISTOFER) 0748 (Given - Provider: Yesenia Hobbs, RN) aspirin chewable tablet 81 mg 81 mg, Oral, DAILY, First dose on Sun11/14/22 at 0900, Until Discontinued, Start POD#1., Post-op/Post-Proc 0852 (Given - Provider: Jen Carlson, CHRISTOFER) 0850 (Given - Provider: Jen Carlson RN) [...] Provider: Jen Carlson RN - Reason: Patient/family refused)2021 (Not Given - Provider: Rafaela Ramirez RN [...] at 1845 1843 (Given - Provider: Jamila Ortez, RN) furOSEmide (LASIX) tablet 40 mg (CANCELED) [...] Discontinued 0748 (Given - Provider: Yesenia Hobbs, CHRISTOFER) Gabapentin (NEURONTIN) capsule 300 mg 300 mg, Oral, 3 TIMES DAILY, First dose on Sun11/15/22 at 1400, Until Discontinued 0851 (Given - Provider: Jen Carlson RN)1355 (Given - Provider: Jen Carlson RN)2004 (Given - Provider: Rafaela Ramirez RN) 0849 (Given - Provider: Jen Carlson RN)1314 (Given - Provider: Jen Carlson, CHRISTOFER)2013 (Given - Provider: Rafaela Ramirez RN) 0748 (Given - Provider: Yesenia Hobbs, CHRISTOFER) Heparin injection 5,000 Units(Linked Group 1) 5,000 [...] Discontinued 0748 (Given - Provider: Yesenia Hobbs, CHRISTOFER) Melatonin tablet 6 mg 6 mg, Oral, DAILY AT BEDTIME, First dose on Sun11/15/22 at 0445, Until Discontinued 2003 (Given - Provider: Rafaela Ramirez RN) 2013 (Given - Provider: Rafaela Ramirez RN) Metoprolol (LOPRESSOR) tablet 12.5 mg 12.5 mg, Oral, EVERY 12 HOURS, First dose on Sun11/14/22 at 2100, Until Discontinued, For all post-operative [...] 0748 (Given - Provider: Yesenia Hobbs RN) Multi-Vitamins tablet 1 tablet 1 tablet, [...] RN) 0747 (Patch Applied - Provider: Yesenia Hobbs RN)1034 [...] Until Discontinued 2244 (Given - Provider: Rafaela Ramirez, RN) 0849 (Given - Provider: Jen Carlson, RN)1615 (Given - Provider: Jamila Ortez RN) 0748 (Given - Provider: Yesenia Hobbs, RN) Senna (SENOKOT) tablet 8.6 mg 8.6 mg, Oral, EVERY 12 HOURS, First dose (after last modification) on Sun11/15/22 at 0900, Until Discontinued, Post-op/Post-Proc 0852 (Given - Provider: Jen Carlson, RN)2003 (Given - Provider: Rafaela Ramirez, RN) 0849 (Given - Provider: Jen Carlson, RN)2013 (Given - Provider: Rafaela Ramirez, CHRISTOFER) 0818 (Not Given - Provider: Yesenia Hobbs, RN - Reason: Patient/family refused) VERIFY LINKED PATCH PLACEMENT(Linked Group 2) Other, EVERY 12 HOURS, First dose on Sun11/14/22 at 0900, Until Discontinued, Confirm continued adhesion of nicotine 7 mg/24hr patch at documented site. 0856 (Patch Verify - Provider: Jen Carlson, CHRISTOFER)2005 (Patch Verify - Provider: Rafaela Ramirez, RN) 0851 (Patch Verify - Provider: Jen Carlson, CHRISTOFER)2021 (Patch Verify - Provider: Rafaela Ramirez RN) 08 (Patch Verify - Provider: Yesenia Hobbs, RN) [...] allows., Post-op/Post-Proc 0749 (Given - Provider: Yesenia Hobbs, CHRISTOFER) Calcium Gluconate 10 % injection 2 g(Linked [...] Intravenous, EVERY 4 HOURS NEEDED, Starting on 11/13/22 at 1945, Until 11/18/22 at 1234, Nausea / Vomiting, Post-op/Post-Proc oxyCODONE (ROXICODONE) tablet 5 mg 5 mg, Oral, EVERY 4 HOURS NEEDED, Starting on 11/13/22 at 1945, Until 11/18/22 at 1234, Moderate [...] Potassium low, replace Magnesium first if indicated. 0844 (Given - Provider: Jen Carlson, RN) 0594 (Given - Provider: Rafaela Ramirez RN) simethicone [...] section and content) DATE CREATED AUTHOR 12/15/2022 [facility] DATE CREATED AUTHOR AUTHOR'S ORGANIZ ATION 10/02/2024 [facility] DATE CREATED AUTHOR AUTHOR'S ORGANIZ ATION 10/03/2024 [facility] DATE CREATED AUTHOR AUTHOR'S ORGANIZ ATION 06/30/2025 [facility] Source Comments (unrecognize d section and content) In the event this informatio n is protected by the Federal Confidentiality of Alcohol and Drug Abuse Patient Records regulations: The Federal rules restrict any use of the information to criminally investigate or prosecute any alcohol or drug abuse patient.[facility] the event this information is protected by the Federal Confidentiality of Alcohol and Drug Abuse Patient Records regulations: The Federal rules restrict any use of the information to criminally investigate or prosecute any alcohol or drug abuse patient.[facility] the event this information is protected by the Federal Confidentiality of Alcohol and Drug Abuse Patient Records regulations: The Federal rules restrict any use of the information to criminally investigate or prosecute any alcohol or drug abuse patient.[facility] the event this information is protected by the Federal Confidentiality of Alcohol and Drug Abuse Patient Records regulations: The Federal rules restrict any use of the information to criminally investigate or prosecute any alcohol or drug abuse patient.[facility] the event this information is protected by the Federal Confidentiality of Alcohol and Drug Abuse Patient Records regulations: The Federal rules restrict any use of the information to criminally investigate or prosecute any alcohol or drug abuse patient.[facility] the event this information is protected by the Federal Confidentiality of Alcohol and Drug Abuse Patient Records regulations: The Federal rules restrict any use of the information to criminally investigate or prosecute any alcohol or drug abuse patient.[facility] Reason for Visit (unrecogniz ed section and [...] BE BASED ON THE PRIMARY CLINICAL RECORDS. [employer] [facility]. provides no warranty or guarantee of the accuracy or completeness of information in this document.
[2025-10-12 07:44] LABS: Hematocrit 42.1 % (40-54); Hemoglobin 14.0 g/dL (13.0-16.5); Immature Granulocytes Count 0.050 X10^3/uL (0.0-0.0); Mean Corp Hgb Conc 33.3 g/dL (32-36); Mean Corpuscular Volume 84.7 fL (80-94); Mean Platelet Vol. 10.2 fl (6.2-12.0); NRBC Flagged by Analyzer 0 % (0-5); Platelet Count 274 K/mm3 (150-450); RBC Distribution Width CV 15.7 % (11.6-14.6); RBC Distribution Width SD 47.5 fl (35.1-43.9); Red Blood Count 4.97 M/mm3 (4.6-6.2); White Blood Count 9.8 K/mm3 (4.4-11.0)
[2025-10-12 07:52] LABS: Squamous Epithelial Cells - UA 0 SEEN /hpf (0-5)
[2025-10-12 08:01] LABS: Color, Urine Yellow (Yellow); Glucose, Dipstick Normal (Normal); Ketone-Dipstick Negative (Negative); Leukocyte Esterase-Dipstick Negative /ul (Negative); Nitrite-Dipstick Negative (Negative); Occult Blood-Urine 250 /ul (Negative); Protein-Dipstick 30 mg/dl (Negative); Specific Gravity, Urine 1.025 (1.002-1.030); Urine Bilirubin Dipstick Negative (Negative)
[2025-10-12 08:09] LABS: Mucous, Urine 1+ /hpf (<or=2+); Red Blood Cells-Urine 25-50 SEEN /hpf (0-5)
[2025-10-12 08:09] LABS: Anion Gap 14 (7-18); BUN 15 mg/dL (4-19); BUN/Creat Ratio 12.0 RATIO (10-20); Calcium,Total 9.3 mg/dL (7.6-11.0); Carbon Dioxide 19.9 mmol/L (20.0-29.0); Chloride 105 mmol/L (96-106); Estimated Creatinine Clearance 88.69 ml/min (50-250); Glucose 192 mg/dL (70-99); Potassium 4.2 mmol/L (3.5-5.1)
[2025-10-12 09:07] VITALS: BP 111/84; PULSE 91; RESP 18
[2025-10-12 10:34] VITALS: BP 111/82; PULSE 79; RESP 18; TEMP 36.4; O2SAT 99
== END 2025-10-12 10:41 | disposition home or self-care (01) ==
PROVIDERS: Emergency Provider Emergency Medicine; PCP Family Medicine; Visit Provider Emergency Medicine
DX: N13.2 Hydronephrosis with renal and ureteral calculous obstruction (principal); F17.210 Nicotine dependence, cigarettes, uncomplicated; R11.2 Nausea with vomiting, unspecified; E78.00 Pure hypercholesterolemia, unspecified; N23 Unspecified renal colic; I10 Essential (primary) hypertension; R31.29 Other microscopic hematuria; I25.10 Atherosclerotic heart disease of native coronary artery without angina pectoris; Z95.1 Presence of aortocoronary bypass graft; I25.2 Old myocardial infarction
CPT/HCPCS: 74176; 80048; 81001; 85025; 96374; 96375; 99283; A4216; J2405